=== PATIENT | female | born 1935 | race Caucasian/White ===

== ENCOUNTER 2016-12-24 10:42 | Emergency (ER) | payer MEDICARE, BC ==
[2016-12-24 11:06] VITALS: TEMP 98.3
[2016-12-24 12:31] VITALS: BP 163/76
--- NOTE | 2016-12-24 12:36 | ED ---
Recheck HPI - General Chief Complaint: Recheck/Abnormal Lab/Rx Stated Complaint: HYPERTENSION Time Seen by Provider: 12/24/16 11:40 Source: patient, RN notes reviewed Mode of arrival: wheelchair Limitations: no limitations - History of Present Illness Initial Comments: This 81-year-old female history of hypertension was sent over by her neurologist for evaluation of hypertension. She was here for evaluation of her low back which she states is weak she's noted have a blood pressure of over 240/ 190. She denied any headache dizziness blurry vision nausea vomiting or other symptoms. She did take her medication today she does admit she does get white coat syndrome. She denies any complaints at all. MD Complaint: other - Related Data Home Medications Medication Instructions Recorded Confirmed Amitriptyline HCl [Elavil] 10 mg PO BID 12/24/16 12/24/16 Atorvastatin Calcium [Lipitor] 20 mg PO DAILY 12/24/16 12/24/16 Hydrocodone/Acetaminophen [Vicodin 1 tab PO TID PRN 12/24/16 12/24/16 Es 7.5-300 mg Tablet] Levothyroxine Sodium [Synthroid] 175 mcg PO DAILY 12/24/16 12/24/16 Lisinopril 20 mg PO BID 12/24/16 12/24/16 Lyrica (Unknown Dose) 1 tab PO BID 12/24/16 12/24/16 Metoprolol Tartrate [Lopressor] 25 mg PO BID 12/24/16 12/24/16 rOPINIRole HCL [Requip] 2 mg PO HS 12/24/16 12/24/16 Allergies Allergy/AdvReac Type Severity Reaction Status Date / Time Penicillins Allergy Swelling/it Verified 12/24/16 11:29 lolis Review of Systems ROS Statement: Those systems with pertinent positive or pertinent negative responses have been documented in the HPI. ROS Other: All systems not noted in ROS Statement are negative. Past Medical History Past Medical History: Cancer, Hypertension, Pneumonia Additional Past Medical History / Comment(s): chronic back pain, ovarian cancer History of Any Multi-Drug Resistant Organisms: None Reported Past Surgical History: Back Surgery, Hernia Repair, Hysterectomy Additional Past Surgical History / Comment(s): jero knee,brain tumor removed, exp lap Past Psychological History: No Psychological Hx Reported Smoking Status: Never smoker Past Alcohol Use History: None Reported Past Drug Use History: None Reported General Exam - General Exam Comments Initial Comments: This a well-developed well-nourished awake alert oriented 3 female Limitations: no limitations General appearance: alert, in no apparent distress Head exam: Present: atraumatic, normocephalic, normal inspection Eye exam: Present: normal appearance, PERRL, EOMI. Absent: scleral icterus, conjunctival injection, periorbital swelling ENT exam: Present: mucous membranes dry Neck exam: Present: normal inspection. Absent: tenderness, meningismus, lymphadenopathy Respiratory exam: Present: normal lung sounds bilaterally. Absent: respiratory distress, wheezes, rales, rhonchi, stridor Cardiovascular Exam: Present: regular rate, normal rhythm, normal heart sounds. Absent: systolic murmur, diastolic murmur, rubs, gallop, clicks GI/Abdominal exam: Present: soft, normal bowel sounds. Absent: distended, tenderness, guarding, rebound, rigid Extremities exam: Present: normal inspection, full ROM, normal capillary refill. Absent: tenderness, pedal edema, joint swelling, calf tenderness Back exam: Present: normal inspection Neurological exam: Present: alert, oriented X3, CN II-XII intact Psychiatric exam: Present: normal affect, normal mood Skin exam: Present: warm, dry, intact, normal color. Absent: rash Course Vital Signs 12/24/16 11:03 Temperature 98.3 F Pulse Rate 63 Respiratory 20 Rate Blood Pressure 193/86 O2 Sat by Pulse 98 Oximetry - Reevaluation(s) Reevaluation #1: 12/24/16 12:32 Reevaluation patient reveals her blood pressure 163/74. We did a long discussion regarding the findings the clinical exam and evaluation at this point no further workup is indicated patient will increase her oral fluids continue with her medications follow-up with her doctor. She does have a blood pressure cuff at home she will monitor her pressure once a day and follow up appropriately. She is in agreement with no further workup as is her . Disposition Clinical Impression: Hypertension, Dehydration Disposition: HOME SELF-CARE Condition: Good Instructions: Hypertension (ED), Dehydration (ED) Referrals: Shira Ortega MD [Primary Care Provider] - 1-2 days
[2016-12-24 13:12] VITALS: PULSE 71; RESP 18
== END 2016-12-24 13:11 | disposition home or self-care (01) ==
LOC: EC 10:42
DX: I10 Essential (primary) hypertension (principal); E86.0 Dehydration; Z79.899 Other long term (current) drug therapy; Z88.0 Allergy status to penicillin; Z85.43 Personal history of malignant neoplasm of ovary; Z90.722 Acquired absence of ovaries, bilateral
CPT/HCPCS: 99283

== ENCOUNTER → 2017-03-11 | Outpatient (CLI) | payer MEDICARE, BC ==
[2017-03-11 10:59] LABS: Anion Gap 7 mmol/L; Blood Urea Nitrogen 15 mg/dL (7-17); Calcium 9.3 mg/dL (8.4-10.2); Carbon Dioxide 33 mmol/L (22-30); Chloride 100 mmol/L (98-107); Glucose 103 mg/dL (74-99); Magnesium 2.1 mg/dL (1.6-2.3); Non-African American GFR(MDRD) >60 (>60 ml/min/1.73 sqM); Potassium 4.7 mmol/L (3.5-5.1); Sodium 140 mmol/L (137-145)
== END | disposition home or self-care (01) ==
LOC: LABWHC1 09:58
PROVIDERS: ATTEND Internal Medicine Clinical Cardiac Electrophysiology
DX: I11.0 Hypertensive heart disease with heart failure (principal); I50.9 Heart failure, unspecified
CPT/HCPCS: 36415; 80048; 83735; 84443

== ENCOUNTER 2017-08-17 12:42 | Inpatient (IN) | payer BC, MEDICARE ==
--- NOTE | 2017-08-17 14:10 | ED ---
General Adult HPI - General Chief complaint: Shortness of Breath Stated complaint: SOB/Not Feeling Well Time Seen by Provider: 08/17/17 13:53 Source: patient, family, RN notes reviewed Mode of arrival: wheelchair Limitations: no limitations - History of Present Illness Initial comments: Patient is a pleasant 82-year-old female presenting to the emergency department for not feeling well. Patient had a small stroke back before [place]. Patient has not been feeling well since that time. Symptoms have worsened over the past couple weeks. Patient does feel somewhat short of breath. Patient has had generalized weakness and fatigue. Patient has had some postnasal drip and cough. No chest pain. No isolated area of weakness. Patient had difficulty getting out of bed today and needed assistance. - Related Data Home Medications Medication Instructions Recorded Confirmed Amitriptyline HCl [Elavil] 10 mg PO BID 12/24/16 08/17/17 Hydrocodone/Acetaminophen [Vicodin 1 tab PO TID PRN 12/24/16 08/17/17 Es 7.5-300 mg Tablet] Levothyroxine Sodium [Synthroid] 175 mcg PO DAILY 12/24/16 08/17/17 Lisinopril 20 mg PO BID 12/24/16 08/17/17 Artificial Tears-Hypromellose 1 drops BOTH EYES TID PRN 08/17/17 08/17/17 [Artificial Tear Drops] Atorvastatin [Lipitor] 40 mg PO HS 08/17/17 08/17/17 Clobetasol Propionate [Temovate 1 applic TOPICAL DAILY PRN 08/17/17 08/17/17 0.05% Cream] Clotrimazole/Betameth Cream 1 applic TOPICAL BID PRN 08/17/17 08/17/17 [Lotrisone] Desonide [Desonate] 1 applic TOPICAL DAILY PRN 08/17/17 08/17/17 Fluticasone Nasal [place] [Flonase 2 spr EA NOSTRIL BID 08/17/17 08/17/17 Nasal [place]] Metoprolol Succinate [Toprol XL] 25 mg PO HS 08/17/17 08/17/17 Multivitamins, Thera [Multivitamin 1 tab PO DAILY 08/17/17 08/17/17 (formulary)] Pregabalin [Lyrica] 150 mg PO BID 08/17/17 08/17/17 Triamterene-Hctz 37.5-25Mg 1 cap PO DAILY 08/17/17 08/17/17 [Dyazide 37.5-25 Capsule] rOPINIRole HCL [Requip] 2 mg PO HS 08/17/17 08/17/17 Allergies Allergy/AdvReac Type Severity Reaction Status Date / Time Penicillins Allergy Swelling/it Verified 08/17/17 13:52 lolis Review of Systems ROS Statement: Those systems with pertinent positive or pertinent negative responses have been documented in the HPI. ROS Other: All systems not noted in ROS Statement are negative. Constitutional: Denies: fever Eyes: Denies: eye pain ENT: Reports: congestion Respiratory: Reports: cough, dyspnea Cardiovascular: Denies: chest pain Endocrine: Reports: fatigue Gastrointestinal: Denies: abdominal pain Genitourinary: Denies: dysuria Musculoskeletal: Denies: back pain Skin: Denies: rash Neurological: Denies: weakness Past Medical History Past Medical History: Cancer, Hypertension, Pneumonia Additional Past Medical History / Comment(s): chronic back pain, ovarian cancer History of Any Multi-Drug Resistant Organisms: None Reported Past Surgical History: Back Surgery, Hernia Repair, Hysterectomy Additional Past Surgical History / Comment(s): jero knee,brain tumor removed, exp lap Past Psychological History: No Psychological Hx Reported Smoking Status: Never smoker Past Alcohol Use History: None Reported Past Drug Use History: None Reported General Exam Limitations: no limitations General appearance: alert, in no apparent distress Head exam: Present: atraumatic, normocephalic Eye exam: Present: normal appearance, PERRL ENT exam: Present: normal oropharynx Neck exam: Present: normal inspection Respiratory exam: Present: normal lung sounds bilaterally Cardiovascular Exam: Present: regular rate, normal rhythm GI/Abdominal exam: Present: soft. Absent: tenderness Extremities exam: Present: pedal edema. Absent: calf tenderness Neurological exam: Present: alert, oriented X3, CN II-XII intact. Absent: motor sensory deficit Expanded Speech: Present: fluid speech Cranial nerves: EOM's Intact: Normal Motor strength exam: RUE: 5, LUE: 5, RLE: 5, LLE: 5 Psychiatric exam: Present: normal affect, normal mood Skin exam: Present: normal color Course Vital Signs 08/17/17 08/17/17 08/17/17 13:21 13:44 14:44 Temperature 99.6 F Pulse Rate 84 66 64 Respiratory 18 Rate Blood Pressure 135/60 112/65 120/72 O2 Sat by Pulse 93 L 95 95 Oximetry - Reevaluation(s) Reevaluation #1: 08/17/17 16:01 Patient does not meet sepsis criteria EKG Findings - EKG Comments: EKG Findings:: Sinus rhythm at 79. First 3 AV block ME of 236. QRS 164. QT 442. QTC 506. Left axis. Right bundle branch block. Left anterior fascicular block. No acute ST change. Medical Decision Making - Medical Decision Making Patient reevaluated and resting comfortably in bed. Patient does not feel comfortable with discharge home. Patient and family updated on results and plan. Case was discussed in detail with Dr. Ferrari, who will admit for Dr. Kwok. - Lab Data Result diagrams: 08/17/17 13:50 08/17/17 13:50 Lab Results 08/17/17 08/17/17 08/17/17 Range/Units 13:50 13:50 13:50 WBC 6.8 (3.8-10.6) k/uL RBC 4.28 (3.80-5.40) m/uL Hgb 13.6 (11.4-16.0) gm/dL Hct 41.9 (34.0-46.0) % MCV 98.0 (80.0-100.0) fL MCH 31.7 (25.0-35.0) pg MCHC 32.3 (31.0-37.0) g/dL RDW 14.0 (11.5-15.5) % Plt Count 164 (150-450) k/uL Neutrophils % 76 % Lymphocytes % 14 % Monocytes % 6 % Eosinophils % 3 % Basophils % 0 % Neutrophils # 5.2 (1.3-7.7) k/uL Lymphocytes # 1.0 (1.0-4.8) k/uL Monocytes # 0.4 (0-1.0) k/uL Eosinophils # 0.2 (0-0.7) k/uL Basophils # 0.0 (0-0.2) k/uL PT (9.0-12.0) sec INR (<1.2) APTT (22.0-30.0) sec D-Dimer (<0.60) mg/L FEU Sodium 140 (137-145) mmol/L Potassium 4.5 (3.5-5.1) mmol/L Chloride 101 (98-107) mmol/L Carbon Dioxide 27 (22-30) mmol/L Anion Gap 12 mmol/L BUN 22 H (7-17) mg/dL Creatinine 1.00 (0.52-1.04) mg/dL Est GFR (MDRD) Af Amer >60 (>60 ml/min/1.73 sqM) Est GFR (MDRD) Non-Af 53 (>60 ml/min/1.73 sqM) Glucose 92 (74-99) mg/dL Calcium 10.6 H (8.4-10.2) mg/dL Total Bilirubin 0.5 (0.2-1.3) mg/dL AST 30 (14-36) U/L ALT 32 (9-52) U/L Alkaline Phosphatase 91 (38-126) U/L Total Creatine Kinase 213 H (30-135) U/L CK-MB (CK-2) 2.9 H* (0.0-2.4) ng/mL CK-MB (CK-2) Rel Index 1.4 Troponin I <0.012 (0.000-0.034) ng/mL NT-Pro-B Natriuret Pep pg/mL Total Protein 6.9 (6.3-8.2) g/dL Albumin 4.4 (3.5-5.0) g/dL Influenza Type A RNA (Not Detectd) Influenza Type B (PCR) (Not Detectd) 08/17/17 08/17/17 08/17/17 Range/Units 13:50 13:50 13:50 WBC (3.8-10.6) k/uL RBC (3.80-5.40) m/uL Hgb (11.4-16.0) gm/dL Hct (34.0-46.0) % MCV (80.0-100.0) fL MCH (25.0-35.0) pg MCHC (31.0-37.0) g/dL RDW (11.5-15.5) % Plt Count (150-450) k/uL Neutrophils % % Lymphocytes % % Monocytes % % Eosinophils % % Basophils % % Neutrophils # (1.3-7.7) k/uL Lymphocytes # (1.0-4.8) k/uL Monocytes # (0-1.0) k/uL Eosinophils # (0-0.7) k/uL Basophils # (0-0.2) k/uL PT 10.0 (9.0-12.0) sec INR 1.0 (<1.2) APTT 24.1 (22.0-30.0) sec D-Dimer 0.51 (<0.60) mg/L FEU Sodium (137-145) mmol/L Potassium (3.5-5.1) mmol/L Chloride (98-107) mmol/L Carbon Dioxide (22-30) mmol/L Anion Gap mmol/L BUN (7-17) mg/dL Creatinine (0.52-1.04) mg/dL Est GFR (MDRD) Af Amer (>60 ml/min/1.73 sqM) Est GFR (MDRD) Non-Af (>60 ml/min/1.73 sqM) Glucose (74-99) mg/dL Calcium (8.4-10.2) mg/dL Total Bilirubin (0.2-1.3) mg/dL AST (14-36) U/L ALT (9-52) U/L Alkaline Phosphatase (38-126) U/L Total Creatine Kinase (30-135) U/L CK-MB (CK-2) (0.0-2.4) ng/mL CK-MB (CK-2) Rel Index Troponin I (0.000-0.034) ng/mL NT-Pro-B Natriuret Pep 277 pg/mL Total Protein (6.3-8.2) g/dL Albumin (3.5-5.0) g/dL Influenza Type A RNA Not Detected (Not Detectd) Influenza Type B (PCR) Not Detected (Not Detectd) - Radiology Data Radiology results: image reviewed (Chest x-ray shows right middle lobe infiltrate) Disposition Clinical Impression: Pneumonia Disposition: ADMITTED IP TO THIS HOSP Referrals: Shira Ortega MD [Primary Care Provider] - 1-2 days Decision Time: 16:02
[2017-08-17 14:23] LABS: Basophils % (A) 0 %; Eosinophils # (A) 0.2 k/uL (0-0.7); Eosinophils % (A) 3 %; HCT 41.9 % (34.0-46.0); HGB 13.6 gm/dL (11.4-16.0); Lymphocytes % (A) 14 %; MCH 31.7 pg (25.0-35.0); MCHC 32.3 g/dL (31.0-37.0); Mean Platelet Volume 7.8; Monocytes # (A) 0.4 k/uL (0-1.0); Monocytes % (A) 6 %; Neutrophils # (A) 5.2 k/uL (1.3-7.7); Neutrophils % (A) 76 %; Platelet Count 164 k/uL (150-450); RBC 4.28 m/uL (3.80-5.40); WBC 6.8 k/uL (3.8-10.6)
[2017-08-17 14:32] LABS: ALT 32 U/L (9-52); AST 30 U/L (14-36); Albumin 4.4 g/dL (3.5-5.0); Alkaline Phosphatase 91 U/L (38-126); Anion Gap 12 mmol/L; Blood Urea Nitrogen 22 mg/dL (7-17); Calcium 10.6 mg/dL (8.4-10.2); Carbon Dioxide 27 mmol/L (22-30); Chloride 101 mmol/L (98-107); Glucose 92 mg/dL (74-99); Potassium 4.5 mmol/L (3.5-5.1); Sodium 140 mmol/L (137-145); Total Bilirubin 0.5 mg/dL (0.2-1.3); Total Protein 6.9 g/dL (6.3-8.2)
[2017-08-17 14:33] LABS: Partial Thromboplastin Time 24.1 sec (22.0-30.0)
--- NOTE | 2017-08-17 14:37 | XR ---
EXAMINATION TYPE: XR chest 2V DATE OF EXAM: 08/17/2017 COMPARISON: 02/07/2011 HISTORY: Shortness of breath TECHNIQUE: Frontal and lateral views of the chest are obtained. FINDINGS: Scattered senescent parenchymal changes noted. Increased density in the region of the right medial lung base may reflect developing infiltrate. Umesh elate clinically and consider progress studies. Heart size is stable. Mediastinal structures are stable and grossly unremarkable. No evidence for hilar prominence. Degenerative changes dorsal spine. IMPRESSION: 1. Increased density in the region of the right medial lung base may reflect developing infiltrate. C orrelate clinically and consider progress studies.
[2017-08-17 14:38] LABS: D-Dimer 0.51 mg/L FEU (<0.60)
[2017-08-17 14:52] LABS: Creatine Kinase 213 U/L (30-135)
[2017-08-17 15:04] LABS: Troponin I <0.012 ng/mL (0.000-0.034)
[2017-08-17 15:05] LABS: Creatine Kinase MB 2.9 ng/mL (0.0-2.4)
[2017-08-17] MEDS ORDERED: PNEUMONIA PROTOCOL UTILIZED 1 EACH MISC PO PRN (16:03)
[2017-08-17] MEDS ORDERED: LEVOFLOXACIN 750MG-D5W PMX 750 MG in DEXTROSE/WATER 1 150ML.BAG IVPB STA (16:03)
[2017-08-17] MEDS ORDERED: IPRATROPIUM-ALBUTEROL 3 ML NEB INHALATION PRN (16:03)
[2017-08-17] MEDS: SODIUM CHLORIDE 0.9% 1,000 ML IV SCH (16:18)
[2017-08-17 17:49] VITALS: BMI 49.6
[2017-08-17] MEDS ORDERED: ARTIFICIAL TEARS-HYPROMELLOSE DROPS 15 ML BTL BOTH EYES PRN (21:09)
[2017-08-17] MEDS ORDERED: CLOTRIMAZOLE/BETAMETH 1-0.05% CREAM 45 GM TUBE TOPICAL PRN (21:09)
[2017-08-17] MEDS ORDERED: CLOBETASOL PROP 0.05% CR 15GM TOPICAL PRN (21:09)
[2017-08-17] MEDS ORDERED: HYDROcodone/APAP 5-325MG 1 EACH TAB PO PRN (21:10)
[2017-08-17] MEDS ORDERED: TEMAZEPAM 15 MG CAP PO PRN (21:10)
[2017-08-17] MEDS ORDERED: AZITHROMYCIN 500 MG in SODIUM CHLORIDE 0.9% 250 ML IVPB SCH (21:30)
[2017-08-17] MEDS: cefTRIAXone IN SWFI 1,000 MG/10 ML SYRINGE IVP SCH (22:04)
[2017-08-18] MEDS: HYDROcodone/APAP 7.5-325MG 1 EACH TAB PO PRN ×3 (06:14→22:30)
[2017-08-18] MEDS: LEVOTHYROXINE 75 MCG TAB PO SCH (06:14)
[2017-08-18] MEDS: LEVOTHYROXINE 100 MCG TAB PO SCH (06:14)
--- NOTE | 2017-08-18 06:46 | HP ---
HISTORY AND PHYSICAL DATE OF SERVICE: 08/17/2017 CHIEF COMPLAINT: Shortness of breath and cough. HISTORY OF PRESENT ILLNESS: This 82-year-old woman with a past medical history of multiple medical problems including history of hypertension, history of pneumonia, chronic back pain, DJD was not feeling well over the past several months according to the her. Patient had pneumonia last year, which the patient could not shake off. Subsequently, the patient also had a TIA and stroke-like episode and was receiving physical therapy and occupational therapy at home. The patient became progressively short of breath with cough for the past several weeks even before [place] and because of increased in generalized tiredness and weakness and other multiple [QAMARKER, the patient came to [facility] and was admitted for further evaluation and treatment. A chest x-ray was done showing increased density in the region of right middle lobe with possible pneumonia. There is no history of any fever or rigors. There is no history of headache, loss of consciousness, or seizures. Dr. Benitez is following the patient closely. PAST MEDICAL HISTORY: History of hypertension, history of pneumonia, history of chronic back pain, DJD. MEDICATIONS: Medications prior to admission include home medications are: 1. Requip 2 mg p.o. q.h.s. 2. Dyazide 37.5 mg 1 capsule daily .. 3. Lyrica 150 mg p.o. b.i.d. 4. Multivitamins 1 p.o. daily. 5. Toprol XL 25 mg q.h.s. 6. Lisinopril 20 mg p.o. b.i.d. 7. Synthroid 175 mcg p.o. daily. 8. Vicodin 1 tablet p.o. t.i.d. p.r.n. 9. Flonase 2 sprays b.i.d. 10.Desonate one application daily p.r.n. 11.Lotrisone one application topically b.i.d. p.r.n. 12.Temovate one application topically daily p.r.n. 13.Lipitor 40 mg q.h.s. 14.Artificial tear drops 1 drop both eyes t.i.d. p.r.n. 15.Elavil 10 mg p.o. b.i.d. ALLERGIES: Allergies are PENICILLIN. FAMILY HISTORY: No history of heart disease or strokes in the family. SOCIAL HISTORY: No history of smoking. No history of alcohol intake. REVIEW OF SYSTEMS: ENT: No diminished hearing or diminished vision. CARDIOVASCULAR SYSTEM: No angina. RESPIRATORY SYSTEM: As mentioned earlier. GI: No nausea. : No dysuria. NERVOUS SYSTEM: No numbness or weakness. ALLERGY/IMMUNOLOGY: No history of asthma. MUSCULOSKELETAL: As mentioned earlier. HEMATOLOGY/ONCOLOGY: No history of anemia. ENDOCRINE: No history of diabetes, hypothyroidism. CONSTITUTIONAL: As mentioned earlier. DERMATOLOGY: Negative. RHEUMATOLOGY: Negative. PSYCHIATRY: As mentioned earlier. PHYSICAL EXAMINATION: The patient is alert and oriented x3. Pulse 66, blood pressure 129/61, respirations 16, temperature 98.4, pulse ox 96% on 3 L. HEENT: Conjunctivae normal. Oral mucosa is moist. Neck is no jugular venous distention. No carotid bruit. No lymph node enlargement. CARDIOVASCULAR: S1 and S2 muffled. No S3, no S4. RESPIRATORY: Breath sounds diminished in the bases. A few rhonchi, no crackles. ABDOMEN: Soft, nontender. No mass palpable. LEGS: No edema, no swelling. NERVOUS SYSTEM: Higher functions as mentioned earlier. Moves all four limbs. No focal deficits LYMPHATICS: No lymphadenopathy of the neck, axillae or groin. SKIN: No ulcer, rash or bleeding. LABS: CBC within normal limits. Otherwise creatine kinase 213. ASSESSMENT: 1. Acute right middle lobe pneumonia possibly gram-negative, community acquired. 2. Hypertension. 3. History of pneumonia. 4. Chronic back pain. 5. History of ovarian cancer. 6. History of back surgery, degenerative joint disease. 7. History of hernia surgery. RECOMMENDATIONS AND DISCUSSION: In this 82-year-old woman who presented with multiple complex medical issues, will monitor the patient closely. Continue the current medications and symptomatic treatment. At this time I recommend continue with broad-spectrum IV antibiotics. I would use a combination of Rocephin and Zithromax. Otherwise cultures. Resume the home medications. Guarded prognosis because of multiple complex medical issues. Further recommendations to follow. Dr. Benitez will be consulted. MMODL / IJN: [id number] /
[2017-08-18] MEDS: IPRATROPIUM-ALBUTEROL 3 ML NEB INHALATION SCH ×3 (07:43→19:50)
[2017-08-18] MEDS ORDERED: IPRATROPIUM 0.5 MG/2.5 ML NEBU INHALATION SCH (08:00)
[2017-08-18 08:32] LABS: Calcium 10.3 mg/dL (8.4-10.2)
[2017-08-18] MEDS: PREGABALIN 75 MG CAP PO SCH ×2 (08:34→20:37)
[2017-08-18] MEDS: PANTOPRAZOLE 40 MG TABLET PO SCH (08:34)
[2017-08-18] MEDS: AMITRIPTYLINE HCL 10 MG TAB PO SCH ×2 (08:35→21:31)
[2017-08-18] MEDS: TRIAMTERENE-HCTZ 37.5-25MG 1 EACH CAP PO SCH (08:35)
[2017-08-18] MEDS: LISINOPRIL 20 MG TAB PO SCH ×2 (08:35→22:30)
[2017-08-18 08:36] LABS: Basophils % (A) 0 %; Eosinophils # (A) 0.3 k/uL (0-0.7); Eosinophils % (A) 4 %; HCT 41.9 % (34.0-46.0); HGB 13.6 gm/dL (11.4-16.0); Lymphocytes # (A) 1.2 k/uL (1.0-4.8); Lymphocytes % (A) 20 %; MCH 32.2 pg (25.0-35.0); MCHC 32.4 g/dL (31.0-37.0); MCV 99.5 fL (80.0-100.0); Monocytes # (A) 0.4 k/uL (0-1.0); Monocytes % (A) 6 %; Neutrophils # (A) 4.1 k/uL (1.3-7.7); Neutrophils % (A) 69 %; Platelet Count 161 k/uL (150-450); Potassium 5.3 mmol/L (3.5-5.1); RBC 4.21 m/uL (3.80-5.40); RDW 13.8 % (11.5-15.5)
[2017-08-18] MEDS: FLUTICASONE 50MCG/SPRAY NASAL 16GM EA NOSTRIL SCH ×2 (08:37→20:35)
[2017-08-18] MEDS: HEPARIN SODIUM,PORCINE 5,000 UNIT/ML 1 ML VIAL SQ SCH ×2 (08:38→20:35)
--- NOTE | 2017-08-18 08:45 | XR ---
EXAMINATION TYPE: XR chest 2V DATE OF EXAM: 08/18/2017 COMPARISON: 08/17/2017 TECHNIQUE: PA and lateral views submitted. HISTORY: Shortness of breath FINDINGS: There is a chronic appearing wedge deformity in the lower thoracic spine with multilevel degenerative disc disease and a stimulator device noted. Heart size stable. No obvious consolidation. Linear changes seen in the perihilar regions are likely related to scar or atelectasis. Mild central interstitial prominence. IMPRESSION: 1. Stable bilateral subsegmental areas of consolidation for which atelectasis favored over pneumonia. 2. Central interstitial pattern may be on the basis of chronic interstitial lung disease rather than venous congestion or pneumonitis correlate clinically
[2017-08-18] MEDS: MULTIVITAMINS, THERA 1 EACH TAB PO SCH (12:02)
--- NOTE | 2017-08-18 13:58 | P.CNPUL ---
History of Present Illness Consult date: 08/18/17 Reason for consult: dyspnea, cough, hypoxemia, pneumonia Chief complaint: Shortness of breath cough and progressively not feeling well History of present illness: Ms. Bailey 82-year-old female with history of severe degree of obstructive sleep apnea and severe degree of sleep disorder breathing patient has not been feeling well for the last 2-3 weeks with slow progressive worsening in terms is started about a week ago when she started having increased cough congestion her symptoms of progressive and eventually came into emergency department where she was seen eval reexamined found to have a right middle lobe pneumonia she is being treated with antibiotics I reviewed her x-ray at the time admission and today some improvement in infiltrates have been noted. And is currently recovering from a small TIA undergoing rehabilitation she also has a sleep disorder breathing and sleep apnea for which her BiPAP setting has been adjusted and machine is being arranged as well patient setting. Review of Systems All systems: negative Past Medical History Past Medical History: Cancer, Hypertension, Pneumonia Additional Past Medical History / Comment(s): chronic back pain, ovarian cancer back surgery, both kneess eplacement, abdominal hernia repair History of Any Multi-Drug Resistant Organisms: None Reported Past Surgical History: Back Surgery, Hernia Repair, Hysterectomy Additional Past Surgical History / Comment(s): jero knee,brain tumor removed, exp lap Past Anesthesia/Blood Transfusion Reactions: No Reported Reaction Past Psychological History: No Psychological Hx Reported Smoking Status: Never smoker Past Alcohol Use History: None Reported Past Drug Use History: None Reported Medications and Allergies Home Medications Medication Instructions Recorded Confirmed Type Amitriptyline HCl [Elavil] 10 mg PO BID 12/24/16 08/17/17 History Hydrocodone/Acetaminophen [Vicodin 1 tab PO TID PRN 12/24/16 08/17/17 History Es 7.5-300 mg Tablet] Levothyroxine Sodium [Synthroid] 175 mcg PO DAILY 12/24/16 08/17/17 History Lisinopril 20 mg PO BID 12/24/16 08/17/17 History Artificial Tears-Hypromellose 1 drops BOTH EYES TID PRN 08/17/17 08/17/17 History [Artificial Tear Drops] Atorvastatin [Lipitor] 40 mg PO HS 08/17/17 08/17/17 History Clobetasol Propionate [Temovate 1 applic TOPICAL DAILY PRN 08/17/17 08/17/17 History 0.05% Cream] Clotrimazole/Betameth Cream 1 applic TOPICAL BID PRN 08/17/17 08/17/17 History [Lotrisone] Desonide [Desonate] 1 applic TOPICAL DAILY PRN 08/17/17 08/17/17 History Fluticasone Nasal [place] [Flonase 2 spr EA NOSTRIL BID 08/17/17 08/17/17 History Nasal [place]] Metoprolol Succinate [Toprol XL] 25 mg PO HS 08/17/17 08/17/17 History Multivitamins, Thera [Multivitamin 1 tab PO DAILY 08/17/17 08/17/17 History (formulary)] Pregabalin [Lyrica] 150 mg PO BID 08/17/17 08/17/17 History Triamterene-Hctz 37.5-25Mg 1 cap PO DAILY 08/17/17 08/17/17 History [Dyazide 37.5-25 Capsule] rOPINIRole HCL [Requip] 2 mg PO HS 08/17/17 08/17/17 History Allergies Allergy/AdvReac Type Severity Reaction Status Date / Time Penicillins Allergy Swelling/it Verified 08/17/17 13:52 lolis Physical Exam Vitals: Vital Signs Temp Pulse Pulse Resp BP BP Pulse Ox 08/18/17 13:45 70 08/18/17 10:05 69 19 08/18/17 07:55 68 08/18/17 07:47 66 93 L 08/18/17 07:00 98.1 F 68 20 141/68 95 08/17/17 21:39 98.2 F 67 16 129/70 95 08/17/17 18:01 98.4 F 66 16 129/61 96 08/17/17 16:54 99.0 F 69 16 134/67 96 08/17/17 16:03 95 08/17/17 15:44 63 18 129/60 94 L 08/17/17 14:44 64 120/72 95 Intake and Output 08/17/17 08/18/17 08/18/17 22:59 06:59 14:59 Intake Total 750 240 Balance 750 240 Intake: Intake, IV Titration 750 Amount Azithromycin 500 mg In 250 Sodium Chloride 0.9% 250 ml @ 125 mls/hr IVPB [facility] Rx#:[id number] Sodium Chloride 0.9% 1, 500 000 ml @ 50 mls/hr IV . Q20H [facility] Rx#:[id number] Oral 240 Other: Voiding Method Toilet Toilet Toilet # Voids 1 2 Weight 127 kg Limitations: no limitations General appearance: alert, in no apparent distress Head exam: Present: atraumatic, normocephalic Eye exam: Present: normal appearance, PERRL ENT exam: Present: normal oropharynx Neck exam: Present: normal inspection Respiratory exam: Present: normal lung sounds bilaterally Cardiovascular Exam: Present: regular rate, normal rhythm GI/Abdominal exam: Present: soft. Absent: tenderness Extremities exam: Present: pedal edema. Absent: calf tenderness Neurological exam: Present: alert, oriented X3, CN II-XII intact. Absent: motor sensory deficit Expanded Speech: Present: fluid speech Cranial nerves: EOM's Intact: Normal Motor strength exam: RUE: 5, LUE: 5, RLE: 5, LLE: 5 Psychiatric exam: Present: normal affect, normal mood Skin exam: Present: normal color Results - Laboratory Findings CBC and BMP: 08/18/17 07:22 08/18/17 07:22 PT/INR, D-dimer PT 10.0 sec (9.0-12.0) 08/17/17 13:50 INR 1.0 (<1.2) 08/17/17 13:50 D-Dimer 0.51 mg/L FEU (<0.60) 08/17/17 13:50 Abnormal lab findings: Abnormal Labs 08/17/17 08/17/17 08/18/17 13:50 13:50 07:22 Potassium 5.3 H BUN 22 H 20 H Creatinine 1.16 H Calcium 10.6 H 10.3 H Total Creatine Kinase 213 H CK-MB (CK-2) 2.9 H* - Diagnostic Findings Chest x-ray: report reviewed, image reviewed (Findings as noted above) Assessment and Plan Assessment: Right middle lobe pneumonia given history of TIA and stroke mixed bacterial and/ or or gram-negative pneumonia cannot be excluded Severe degree of obstructive sleep apnea and morbid obesity Hypertension hypertensive cardiovascular disease Ovarian cancer Generative joint disease osteoarthritis Plan: Would continue antibiotics as well as breathing treatments continue gentle rehydration maintain patient on DVT and peptic ulcer disease prophylaxis will follow clinical course closely, patient will be resumed on BiPAP as noted above once arranged Time with Patient: Greater than 30
[2017-08-18] MEDS: SODIUM CHLORIDE 0.9% 1,000 ML IV SCH (15:19)
[2017-08-18] MEDS ORDERED: LEVOFLOXACIN 750 MG TAB PO SCH (16:00)
--- NOTE | 2017-08-18 19:31 | PN ---
PROGRESS NOTE DATE OF SERVICE: 08/18/2017 This 82-year-old woman who was admitted with bibasilar pneumonia is on broad-spectrum IV antibiotics. Patient is being closely monitored at this time. Right middle lobe pneumonia is also suspected as well. Dr. Benitez is following the patient. Patient is on broad-spectrum IV antibiotics. No chest pain. No palpitations. No fever. PHYSICAL EXAMINATION: Pulse is 87, blood pressure 178/80, respiration 18, temperature 98.1, pulse ox 96% on 2 L. HEENT: Conjunctivae normal. NECK: No jugular venous distention. CARDIOVASCULAR SYSTEM: S1, S2 muffled. RESPIRATORY SYSTEM: Breath sounds diminished at the bases. A few scattered rhonchi. ABDOMEN: Soft, nontender. LEGS: No edema. No swelling. NERVOUS SYSTEM: No focal deficit. LABS: Calcium is 10.3. Creatinine is 1.16. ASSESSMENT: 1. Acute right middle lobe pneumonia, possibly Gram-negative or community-acquired. 2. Hypertension. 3. History of pneumonia. 4. History of chronic back pain. 5. History of ovarian cancer. 6. History of back surgery and degenerative joint disease. 7. History of hernia surgery. RECOMMENDATIONS AND DISCUSSION: I recommend to continue current medication, continue symptomatic treatment. Continue with antibiotics. Increase ambulation. Closely follow with Pulmonary. Guarded prognosis. Further recommendations to follow. MMODL / IJN: [id number] /
[2017-08-18] MEDS: ATORVASTATIN 40 MG TAB PO SCH (20:34)
[2017-08-18] MEDS: cefTRIAXone IN SWFI 1,000 MG/10 ML SYRINGE IVP SCH (20:35)
[2017-08-18] MEDS: METOPROLOL SUCCINATE (ER) 25 MG TAB.ER.24H PO SCH (20:37)
[2017-08-18] MEDS: AZITHROMYCIN 500 MG TAB PO SCH (21:31)
[2017-08-19] MEDS: LEVOTHYROXINE 100 MCG TAB PO SCH (06:09)
[2017-08-19] MEDS: LEVOTHYROXINE 75 MCG TAB PO SCH (06:09)
[2017-08-19] MEDS: HYDROcodone/APAP 7.5-325MG 1 EACH TAB PO PRN (06:09)
[2017-08-19] MEDS: IPRATROPIUM-ALBUTEROL 3 ML NEB INHALATION SCH ×3 (08:19→19:12)
[2017-08-19 08:33] LABS: Basophils % (A) 1 %; Eosinophils # (A) 0.3 k/uL (0-0.7); Eosinophils % (A) 6 %; HCT 42.6 % (34.0-46.0); HGB 13.5 gm/dL (11.4-16.0); Lymphocytes # (A) 1.5 k/uL (1.0-4.8); Lymphocytes % (A) 25 %; MCH 32.1 pg (25.0-35.0); MCHC 31.7 g/dL (31.0-37.0); MCV 101.3 fL (80.0-100.0); Macrocytosis Slight; Mean Platelet Volume 7.5; Monocytes # (A) 0.4 k/uL (0-1.0); Monocytes % (A) 6 %; Neutrophils # (A) 3.7 k/uL (1.3-7.7); Neutrophils % (A) 61 %; Platelet Count 172 k/uL (150-450); RBC 4.21 m/uL (3.80-5.40); RDW 14.1 % (11.5-15.5)
[2017-08-19] MEDS: PANTOPRAZOLE 40 MG TABLET PO SCH (08:37)
[2017-08-19] MEDS: AMITRIPTYLINE HCL 10 MG TAB PO SCH ×2 (08:37→20:14)
[2017-08-19] MEDS: TRIAMTERENE-HCTZ 37.5-25MG 1 EACH CAP PO SCH (08:37)
[2017-08-19] MEDS: LISINOPRIL 20 MG TAB PO SCH ×2 (08:38→20:35)
[2017-08-19] MEDS: PREGABALIN 75 MG CAP PO SCH ×2 (08:38→21:49)
[2017-08-19] MEDS: FLUTICASONE 50MCG/SPRAY NASAL 16GM EA NOSTRIL SCH ×2 (08:38→20:14)
[2017-08-19] MEDS: HEPARIN SODIUM,PORCINE 5,000 UNIT/ML 1 ML VIAL SQ SCH ×2 (08:42→20:14)
[2017-08-19 08:51] LABS: Calcium 10.5 mg/dL (8.4-10.2)
[2017-08-19] MEDS: MULTIVITAMINS, THERA 1 EACH TAB PO SCH (12:24)
--- NOTE | 2017-08-19 13:26 | P.PN ---
Subjective Progress Note Date: 08/19/17 Principal diagnosis: Right middle lobe and right lower lobe pneumonia, acute hypoxic respiratory failure, recent CVA/TIA, severe morbid obesity, severe degree of sleep disorder breathing and sleep apnea 08/19/2017, patient seen and evaluated examined during the rounds her symptoms of cough congestion shortness breath is slightly better and improved she able to breathing relatively better patient has intermittent episodes of hiccups- like sensation however currently not an active issue on specific questioning she has a chronic long-standing history of it, patient has been tolerating breathing treatment antibiotics fairly well him on blood culture no growth so far 82-year-old female with history of severe degree of obstructive sleep apnea and severe degree of sleep disorder breathing patient has not been feeling well for the last 2-3 weeks with slow progressive worsening in terms is started about a week ago when she started having increased cough congestion her symptoms of progressive and eventually came into emergency department where she was seen eval reexamined found to have a right middle lobe pneumonia she is being treated with antibiotics I reviewed her x-ray at the time admission and today some improvement in infiltrates have been noted. And is currently recovering from a small TIA undergoing rehabilitation she also has a sleep disorder breathing and sleep apnea for which her BiPAP setting has been adjusted and machine is being arranged as well patient setting. Objective - Vital Signs Vital signs: Vital Signs Temp 98.0 F 08/19/17 07:59 Pulse 69 08/19/17 12:08 Resp 19 08/19/17 12:08 BP 140/66 08/19/17 07:59 Pulse Ox 95 08/19/17 08:21 Intake & Output 08/18/17 08/19/17 08/19/17 18:59 06:59 18:59 Intake Total 1280 120 Balance 1280 120 Intake: Intake, IV Titration 400 120 Amount Sodium Chloride 0.9% 1, 400 120 000 ml @ 50 mls/hr IV . Q[facility]H [facility] Rx#:[id number] Oral 880 Other: Voiding Method Toilet Toilet Toilet # Voids 2 1 - Exam Limitations: no limitations General appearance: alert, in no apparent distress Head exam: Present: atraumatic, normocephalic Eye exam: Present: normal appearance, PERRL ENT exam: Present: normal oropharynx Neck exam: Present: normal inspection Respiratory exam: Present: normal lung sounds bilaterally Cardiovascular Exam: Present: regular rate, normal rhythm GI/Abdominal exam: Present: soft. Absent: tenderness Extremities exam: Present: pedal edema. Absent: calf tenderness Neurological exam: Present: alert, oriented X3, CN II-XII intact. Absent: motor sensory deficit Expanded Speech: Present: fluid speech Cranial nerves: EOM's Intact: Normal Motor strength exam: RUE: 5, LUE: 5, RLE: 5, LLE: 5 Psychiatric exam: Present: normal affect, normal mood Skin exam: Present: normal color - Labs CBC & Chem 7: 08/19/17 08:01 08/19/17 08:01 Labs: Abnormal Lab Results - Last 24 Hours (Table) 08/19/17 08/19/17 Range/Units 08:01 08:01 MCV 101.3 H (80.0-100.0) fL BUN 22 H (7-17) mg/dL Creatinine 1.26 H (0.52-1.04) mg/dL Calcium 10.5 H (8.4-10.2) mg/dL Microbiology - Last 24 Hours (Table) 08/17/17 13:50 Blood Culture - Preliminary Blood No Growth after 24 hours Assessment and Plan Assessment: Right middle lobe pneumonia/right lower lobe pneumonia given history of TIA and stroke mixed bacterial and/or or gram-negative pneumonia cannot be excluded Severe degree of obstructive sleep apnea and morbid obesity Hypertension hypertensive cardiovascular disease Ovarian cancer Generative joint disease osteoarthritis Severe morbid obesity Recent TIA and CVA Plan: Would continue antibiotics as well as breathing treatments continue gentle rehydration maintain patient on DVT and peptic ulcer disease prophylaxis will follow clinical course closely, patient will be resumed on BiPAP as noted above once arranged Time with Patient: Greater than 30
[2017-08-19] MEDS: AZITHROMYCIN 500 MG TAB PO SCH (20:13)
[2017-08-19] MEDS: ATORVASTATIN 40 MG TAB PO SCH (20:14)
--- NOTE | 2017-08-19 21:11 | PN ---
PROGRESS NOTE DATE OF SERVICE: 08/19/2017 This 82-year-old woman who was admitted with acute right middle lobe pneumonia with possibly gram-negative community-acquired pneumonia is being closely monitored. No chest pain. No palpitations. No fever. Dr. Benitez is following the patient closely. EXAM: Alert and oriented x3. Pulse 60, blood pressure 130/74, respirations 16, temperature 98.2, pulse ox 98% on 2L. HEENT: Conjunctivae normal. NECK: No jugular venous distention. CARDIOVASCULAR: S1, S2 muffled. RESPIRATORY: Breath sounds diminished in the bases. Scattered rhonchi and crackles. ABDOMEN: Soft, nontender. LEGS: No edema. NERVOUS SYSTEM: No focal deficits. LABS: Creatinine is 1.26. Influenza is negative. ASSESSMENT: 1. Acute right middle pneumonia, possibly gram-negative community-acquired. 2. Hypertension. 3. History of pneumonia. 4. History of chronic back pain. 5. History of ovarian cancer. 6. History of back pain secondary to degenerative joint disease. 7. History of hernia surgery. 8. Mild acute renal failure, possibly prerenal acute tubular necrosis. RECOMMENDATIONS AND DISCUSSION: In this 82-year-old woman who presented with multiple complex medical issues, will monitor the patient closely, continue with the current medical management and symptomatic treatment. Otherwise at this time, I would recommend continuing with antibiotics. Otherwise, guarded prognosis because of multiple complex medical issues. Further recommendations to follow. MMEDUAR / STEVAN: [id number] /
[2017-08-19] MEDS: METOPROLOL SUCCINATE (ER) 25 MG TAB.ER.24H PO SCH (21:48)
[2017-08-19] MEDS: cefTRIAXone IN SWFI 1,000 MG/10 ML SYRINGE IVP SCH (21:49)
[2017-08-20] MEDS: LEVOTHYROXINE 100 MCG TAB PO SCH (06:02)
[2017-08-20] MEDS: LEVOTHYROXINE 75 MCG TAB PO SCH (06:02)
[2017-08-20] MEDS: IPRATROPIUM-ALBUTEROL 3 ML NEB INHALATION SCH ×2 (07:22→13:38)
--- NOTE | 2017-08-20 08:48 | P.PN ---
Subjective Progress Note Date: 08/20/17 Principal diagnosis: Right middle lobe and right lower lobe pneumonia, acute hypoxic respiratory failure, recent CVA/TIA, severe morbid obesity, severe degree of sleep disorder breathing and sleep apnea 08/20/2017, patient seen eval examined during the rounds from respiratory standpoint doing relatively much better breathing comfortably denies any chest pain cuff congestion shortness of breath has improved no more episodes of tremor hiccups are muscle fasciculation seen as reported previously 08/19/2017, patient seen and evaluated examined during the rounds her symptoms of cough congestion shortness breath is slightly better and improved she able to breathing relatively better patient has intermittent episodes of hiccups- like sensation however currently not an active issue on specific questioning she has a chronic long-standing history of it, patient has been tolerating breathing treatment antibiotics fairly well him on blood culture no growth so far 82-year-old female with history of severe degree of obstructive sleep apnea and severe degree of sleep disorder breathing patient has not been feeling well for the last 2-3 weeks with slow progressive worsening in terms is started about a week ago when she started having increased cough congestion her symptoms of progressive and eventually came into emergency department where she was seen eval reexamined found to have a right middle lobe pneumonia she is being treated with antibiotics I reviewed her x-ray at the time admission and today some improvement in infiltrates have been noted. And is currently recovering from a small TIA undergoing rehabilitation she also has a sleep disorder breathing and sleep apnea for which her BiPAP setting has been adjusted and machine is being arranged as well patient setting. Objective - Vital Signs Vital signs: Vital Signs Temp 98.5 F 08/19/17 21:49 Pulse 63 08/20/17 07:34 Resp 20 08/19/17 21:49 BP 125/79 08/19/17 21:49 Pulse Ox 94 L 08/20/17 07:22 Intake & Output 08/19/17 08/20/17 08/20/17 18:59 06:59 18:59 Intake Total 400 Balance 400 Intake: Intake, IV Titration 400 Amount Sodium Chloride 0.9% 1, 400 000 ml @ 50 mls/hr IV . Q20H [facility] Rx#:[id number] Other: Voiding Method Toilet Toilet # Voids 2 - Exam Limitations: no limitations General appearance: alert, in no apparent distress Head exam: Present: atraumatic, normocephalic Eye exam: Present: normal appearance, PERRL ENT exam: Present: normal oropharynx Neck exam: Present: normal inspection Respiratory exam: Present: normal lung sounds bilaterally Cardiovascular Exam: Present: regular rate, normal rhythm GI/Abdominal exam: Present: soft. Absent: tenderness Extremities exam: Present: pedal edema. Absent: calf tenderness Neurological exam: Present: alert, oriented X3, CN II-XII intact. Absent: motor sensory deficit Expanded Speech: Present: fluid speech Cranial nerves: EOM's Intact: Normal Motor strength exam: RUE: 5, LUE: 5, RLE: 5, LLE: 5 Psychiatric exam: Present: normal affect, normal mood Skin exam: Present: normal color - Labs CBC & Chem 7: 08/19/17 08:01 08/19/17 08:01 Labs: Abnormal Lab Results - Last 24 Hours (Table) 08/19/17 08/19/17 Range/Units 08:01 08:01 MCV 101.3 H (80.0-100.0) fL BUN 22 H (7-17) mg/dL Creatinine 1.26 H (0.52-1.04) mg/dL Calcium 10.5 H (8.4-10.2) mg/dL Microbiology - Last 24 Hours (Table) 08/17/17 13:50 Blood Culture - Preliminary Blood No Growth after 48 hours Assessment and Plan Assessment: Right middle lobe pneumonia/right lower lobe pneumonia given history of TIA and stroke mixed bacterial and/or or gram-negative pneumonia cannot be excluded Severe degree of obstructive sleep apnea and morbid obesity Hypertension hypertensive cardiovascular disease Ovarian cancer Generative joint disease osteoarthritis Severe morbid obesity Recent TIA and CVA Plan: Would continue antibiotics as well as breathing treatments continue gentle rehydration maintain patient on DVT and peptic ulcer disease prophylaxis will follow clinical course closely, patient will be resumed on BiPAP as noted above once arranged, patient be discharged home from pulmonary standpoint oral antibiotics breathing treatments and supportive care will follow on outpatient setting Time with Patient: Greater than 30
[2017-08-20] MEDS: FLUTICASONE 50MCG/SPRAY NASAL 16GM EA NOSTRIL SCH (08:57)
[2017-08-20 08:58] LABS: Basophils % (A) 0 %; Eosinophils # (A) 0.3 k/uL (0-0.7); Eosinophils % (A) 5 %; HCT 42.3 % (34.0-46.0); HGB 13.3 gm/dL (11.4-16.0); Hypochromasia Slight; Lymphocytes # (A) 1.4 k/uL (1.0-4.8); Lymphocytes % (A) 18 %; MCH 31.8 pg (25.0-35.0); MCHC 31.4 g/dL (31.0-37.0); Macrocytosis Slight; Mean Platelet Volume 8.3; Monocytes # (A) 0.4 k/uL (0-1.0); Monocytes % (A) 5 %; Neutrophils # (A) 5.4 k/uL (1.3-7.7); Neutrophils % (A) 71 %; Platelet Count 173 k/uL (150-450); RBC 4.19 m/uL (3.80-5.40); WBC 7.5 k/uL (3.8-10.6)
[2017-08-20] MEDS: TRIAMTERENE-HCTZ 37.5-25MG 1 EACH CAP PO SCH (08:59)
[2017-08-20] MEDS: PANTOPRAZOLE 40 MG TABLET PO SCH (08:59)
[2017-08-20] MEDS: AMITRIPTYLINE HCL 10 MG TAB PO SCH (09:00)
[2017-08-20] MEDS: LISINOPRIL 20 MG TAB PO SCH (09:00)
[2017-08-20] MEDS: PREGABALIN 75 MG CAP PO SCH (09:00)
[2017-08-20] MEDS: HEPARIN SODIUM,PORCINE 5,000 UNIT/ML 1 ML VIAL SQ SCH (09:01)
[2017-08-20 09:26] LABS: Calcium 10.6 mg/dL (8.4-10.2); Potassium 5.1 mmol/L (3.5-5.1)
[2017-08-20 10:21] VITALS: PULSE 65; RESP 18
[2017-08-20 10:25] VITALS: BP 104/58; TEMP 97.6
[2017-08-20] MEDS: HYDROcodone/APAP 7.5-325MG 1 EACH TAB PO PRN (11:07)
[2017-08-20] MEDS: MULTIVITAMINS, THERA 1 EACH TAB PO SCH (12:59)
--- NOTE | 2017-08-20 14:09 | DS ---
DISCHARGE SUMMARY FINAL DIAGNOSES: 1. Acute right lower lobe pneumonia, possibly gram-negative community-acquired, improved. 2. Hypertension. 3. Mild hypercalcemia. 4. Mild acute renal failure, possibly prerenal renal failure. 5. History of pneumonia. 6. History of chronic back pain. 7. History of ovarian cancer. 8. Back pain secondary to degenerative joint disease. 9. History of hernia surgery. DISCHARGE DISPOSITION: The patient will be discharged in a stable condition with guarded prognosis. HISTORY OF PRESENT ILLNESS: This is an 82-year-old woman with past medical history of multiple medical problems admitted with acute right middle lobe pneumonia, possibly gram-negative, community- acquired. The patient was treated with IV antibiotics. Dr. Benitez, patternator saw the patient. Patient improved significantly. On exam, vital signs are stable. CARDIOVASCULAR SYSTEM: S1, S2. ABDOMEN: Soft. NERVOUS SYSTEM: No focal deficits. Influenza is negative. However, the creatinine was up to 1.47 indicating mild acute renal failure. Dyazide was held, to be evaluated in the outpatient setting by Dr. Ortega. Otherwise, patient also had a calcium of 10.6. Parathyroid hormone will be checked and recommended the patient to have outpatient followup with CBC, BMP. DISCHARGE ADVICE: 1. Diet is cardiac. 2. Activity limited until followup. 3. Follow up with Dr. Ortega in 2 to 3 days. 4. Follow up with Dr. Benitez as recommended. MEDICATIONS WILL BE: 1. Elavil 10 mg p.o. b.i.d. 2. Artificial tears. 3. Lipitor 40 mg q.h.s. 4. Zithromax 500 mg p.o. daily for 5 7 days. 5. Ceftin 500 mg p.o. b.i.d. for 7 days. 6. Clobetasol Propionate 1 application topically. 7. Clotrimazole 1 application topically. 8. Desonate 1 application topically. 9. Flonase nasal spray 2 sprays b.i.d. 10.Hydrocodone 1 tablet t.i.d. p.r.n. 11.Synthroid 175 mcg p.o. daily. 12.Lisinopril 20 mg p.o. b.i.d. 13.Toprol-XL 25 mg q.h.s. 14.Multivitamin 1 p.o. daily. 15.Lyrica 150 mg p.o. b.i.d. 16.Requip 2 mg p.o. q.h.s. 17.Hold Dyazide for now. Once again, the patient will be discharged in a stable condition with guarded prognosis. Total time taken 35 minutes. TAMIA / STEVAN: [id number] /
== END 2017-08-20 14:05 | disposition home health service (06) | DRG 178 ==
LOC: EC 12:42 → 5MS5E 16:04 → OBSVTOIN 08-18 11:58
PROVIDERS: ADMIT Hospitalist; ATTEND Hospitalist
DX: J15.6 Pneumonia due to other Gram-negative bacteria (principal); Z68.42 Body mass index [BMI] 45.0-49.9, adult; N17.9 Acute kidney failure, unspecified; E66.01 Morbid (severe) obesity due to excess calories; E83.52 Hypercalcemia; I11.9 Hypertensive heart disease without heart failure; G47.33 Obstructive sleep apnea (adult) (pediatric); G89.29 Other chronic pain; M47.9 Spondylosis, unspecified; R06.6 Hiccough; M19.91 Primary osteoarthritis, unspecified site; Z79.51 Long term (current) use of inhaled steroids; Z79.899 Other long term (current) drug therapy; Z88.0 Allergy status to penicillin; Z85.43 Personal history of malignant neoplasm of ovary; Z90.710 Acquired absence of both cervix and uterus; Z86.73 Personal history of transient ischemic attack (TIA), and cerebral infarction without residual deficits; Z96.653 Presence of artificial knee joint, bilateral
CPT/HCPCS: 36415; 71046; 80048; 80053; 82550; 82553; 83880; 84484; 85025; 85379; 85610; 85730; 87040; 87502; 93005; 94640; 94760; 96365; 99285

== ENCOUNTER → 2017-08-24 | Outpatient (CLI) | payer MEDICARE ==
[2017-08-24 09:50] LABS: Anion Gap 12 mmol/L; Blood Urea Nitrogen 26 mg/dL (7-17); Calcium 10.2 mg/dL (8.4-10.2); Carbon Dioxide 30 mmol/L (22-30); Chloride 101 mmol/L (98-107); Glucose 104 mg/dL (74-99); Potassium 5.1 mmol/L (3.5-5.1); Sodium 143 mmol/L (137-145)
== END | disposition home or self-care (01) ==
LOC: LABWHC1 08:44
PROVIDERS: ATTEND Nurse Practitioner
DX: J18.9 Pneumonia, unspecified organism (principal)
CPT/HCPCS: 36415; 80048; 83970

== ENCOUNTER 2017-10-16 15:20 | Observation (INO) | payer MEDICARE ==
[2017-10-16] MEDS ORDERED: SODIUM CHLORIDE 0.9% 1,000 ML IV STA (16:06)
[2017-10-16 16:23] LABS: Basophils % (A) 0 %; Eosinophils # (A) 0.1 k/uL (0-0.7); Eosinophils % (A) 1 %; HCT 34.8 % (34.0-46.0); HGB 10.7 gm/dL (11.4-16.0); Lymphocytes # (A) 0.6 k/uL (1.0-4.8); Lymphocytes % (A) 10 %; MCH 30.4 pg (25.0-35.0); MCHC 30.8 g/dL (31.0-37.0); MCV 98.7 fL (80.0-100.0); Mean Platelet Volume 8.2; Monocytes # (A) 0.3 k/uL (0-1.0); Monocytes % (A) 6 %; Neutrophils # (A) 4.3 k/uL (1.3-7.7); Neutrophils % (A) 81 %; Platelet Count 136 k/uL (150-450); RBC 3.53 m/uL (3.80-5.40); RDW 13.4 % (11.5-15.5); WBC 5.3 k/uL (3.8-10.6)
[2017-10-16 16:30] LABS: Albumin 3.6 g/dL (3.5-5.0); Calcium 9.2 mg/dL (8.4-10.2); Creatine Kinase 61 U/L (30-135); D-Dimer 0.7 mg/L FEU (<0.60); Phosphorus 3.9 mg/dL (2.5-4.5); Potassium 4.8 mmol/L (3.5-5.1); Total Bilirubin 0.5 mg/dL (0.2-1.3)
[2017-10-16 16:34] LABS: Partial Thromboplastin Time 22.6 sec (22.0-30.0); Prothrombin Time 10.1 sec (9.0-12.0)
[2017-10-16 16:41] LABS: Creatine Kinase MB 1.1 ng/mL (0.0-2.4); Troponin I <0.012 ng/mL (0.000-0.034)
--- NOTE | 2017-10-16 16:50 | CT ---
EXAMINATION TYPE: CT brain wo con DATE OF EXAM: 10/16/2017 COMPARISON: NONE HISTORY: Weakness today. CT DLP: 2142.[address] of the brain was performed. The ventricles, basal cisterns and sulci overlying the cerebral convexities demonstrate mild enlargem ent. Left cerebellar encephalomalacia from prior surgical intervention. There is no evidence for intracranial hemorrhage or sulcal effacement. There is decreased attenuation about the periventricular white matter and deep white matter of both c erebral hemispheres, compatible with chronic small vessel ischemia. Differential diagnosis does inclu de demyelination. No mass effects are seen.No midline shift. Postoperative changes of left occipital craniotomy. If symptoms persist consider MRI. IMPRESSION: 1. Age related atrophic and chronic small vessel ischemic change without acute intracranial process s een at this time.
--- NOTE | 2017-10-16 16:56 | CT ---
EXAMINATION TYPE: CT lumbar spine wo con, CT sacrum wo con DATE OF EXAM: 10/16/2017 COMPARISON: NONE HISTORY: Weakness today. CT DLP: 2844.[address] of the sacrum and lumbar spine was performed. Bone and soft tissue window settings are submitted as well as coronal and sagittal reconstructions. There is moderate compression fracture of T10 of uncertain age and/or etiology. There is no definite bony retropulsion. Minimal paraspinal hematoma suggested. No additional compression fracture within t he [id number]. L1-L2: Vacuum disc noted compatible with severe degenerative disc disease. Posterior disc bulge. No disc herniation, central stenosis or lateral recess stenosis. L2-L3: Vacuum disc noted compatible with severe degenerative disc disease. Posterior disc bulge. No disc herniation, central stenosis or lateral recess stenosis. Right hemilaminectomy change. L3-L4: Vacuum disc noted compatible with severe degenerative disc disease. Moderate posterior disc bu lge. Hypertrophy of the ligamentum flavum and facet joint arthropathy result in moderate central sten osis. L4-L5: Vacuum disc noted compatible with severe degenerative disc disease. Posterior disc bulge. No disc herniation, central stenosis or lateral recess stenosis. L5-S1: Normal disc space height. No disc herniation protrusion or central stenosis. No facet joint arthropathy. No evidence for foraminal encroachment. No paraspinal masses are identified. Lumbar segments are free if fracture. Evaluation of the sacrum fails demonstrate evidence for a displaced or impacted fracture. No bony bisi tructive process noted. No evidence for presacral mass. IMPRESSION: 1. Moderate compression fracture of T10 of bony retropulsion of uncertain age and/or etiology althoug h is likely relatively recent. 2. Multilevel vacuum disc. Moderate central stenosis identified at L3-4.
--- NOTE | 2017-10-16 17:34 | XR ---
EXAMINATION: XR chest 2V DATE AND TIME: 10/16/2017 5:19 PM ORDERING PROVIDER: Anrdew Avitia DO CLINICAL INDICATION: Weakness TECHNIQUE: PA and lateral COMPARISON: None. DESCRIPTION: The overlying soft tissues are prominent. Given this factor, the lungs appear to be francia r. The pleural spaces are negative. The cardiac silhouette is mild moderately enlarged. The mediastin al and pleural silhouettes are unremarkable. The skeletal structures are intact without focal finding s. IMPRESSION: NO ACUTE PROCESS.
--- NOTE | 2017-10-16 17:40 | ED ---
General Adult HPI - General Chief complaint: Weakness Stated complaint: weakness Time Seen by Provider: 10/16/17 15:59 Source: EMS, RN notes reviewed, old records reviewed Mode of arrival: EMS - History of Present Illness Initial comments: This is an 82-year-old female to the ER for weakness and inability to ambulate. Back pain. Severe back pain. Patient has had significant weakness the last 3 days progressive worsening made much worse today. She has had multiple falls as of recent, she does have a history of back pain is pretty of severe back pain. Patient denies hitting her head injury. 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 Patient states her main complaint now is back pain and inability to ambulate - Related Data Home Medications Medication Instructions Recorded Confirmed Amitriptyline HCl [Elavil] 10 mg PO BID 12/24/16 10/16/17 Levothyroxine Sodium [Synthroid] 175 mcg PO DAILY 12/24/16 10/16/17 Lisinopril 20 mg PO BID 12/24/16 10/16/17 Artificial Tears-Hypromellose 1 drops BOTH EYES TID PRN 08/17/17 10/16/17 [Artificial Tear Drops] Atorvastatin [Lipitor] 40 mg PO HS 08/17/17 10/16/17 Clobetasol Propionate [Temovate 1 applic TOPICAL DAILY PRN 08/17/17 10/16/17 0.05% Cream] Clotrimazole/Betameth Cream 1 applic TOPICAL BID PRN 08/17/17 10/16/17 [Lotrisone] Desonide [Desonate] 1 applic TOPICAL DAILY PRN 08/17/17 10/16/17 Fluticasone Nasal [place] [Flonase 2 spr EA NOSTRIL BID 08/17/17 10/16/17 Nasal [place]] Metoprolol Succinate [Toprol XL] 25 mg PO HS 08/17/17 10/16/17 Multivitamins, Thera [Multivitamin 1 tab PO DAILY 08/17/17 10/16/17 (formulary)] DULoxetine HCL [Cymbalta] 20 mg PO DAILY 10/16/17 10/16/17 Furosemide [Lasix] 20 mg PO DAILY 10/16/17 10/16/17 Montelukast [Singulair] 10 mg PO HS 10/16/17 10/16/17 Trospium Chloride [Sanctura XR] 60 mg PO DAILY 10/16/17 10/16/17 rOPINIRole HCL [Requip] 2 mg PO HS 10/16/17 10/16/17 Previous Rx's Medication Instructions Recorded Pregabalin [Lyrica] 150 mg PO BID #60 capsule 08/20/17 Allergies Allergy/AdvReac Type Severity Reaction Status Date / Time Penicillins Allergy Swelling/it Verified 10/16/17 16:07 lolis Review of Systems ROS Statement: Those systems with pertinent positive or pertinent negative responses have been documented in the HPI. ROS Other: All systems not noted in ROS Statement are negative. Past Medical History Past Medical History: Cancer, Hypertension, Pneumonia Additional Past Medical History / Comment(s): chronic back pain, ovarian cancer back surgery, both kneess eplacement, abdominal hernia repair History of Any Multi-Drug Resistant Organisms: None Reported Past Surgical History: Back Surgery, Hernia Repair, Hysterectomy Additional Past Surgical History / Comment(s): jero knee,brain tumor removed, exp lap Past Anesthesia/Blood Transfusion Reactions: No Reported Reaction Past Psychological History: No Psychological Hx Reported Smoking Status: Never smoker Past Alcohol Use History: Rare Past Drug Use History: None Reported - Past Family History Father Family Medical History: Myocardial Infarction ([place]) Mother Additional Family Medical History / Comment(s): parkinson's Sister(s) Family Medical History: Cancer General Exam General appearance: alert, in no apparent distress, obese Head exam: Present: atraumatic, normocephalic, normal inspection Eye exam: Present: normal appearance, PERRL, EOMI. Absent: scleral icterus, conjunctival injection, periorbital swelling ENT exam: Present: normal exam, mucous membranes moist Neck exam: Present: normal inspection. Absent: tenderness, meningismus, lymphadenopathy Respiratory exam: Present: normal lung sounds bilaterally. Absent: respiratory distress, wheezes, rales, rhonchi, stridor Cardiovascular Exam: Present: regular rate, normal rhythm, normal heart sounds. Absent: systolic murmur, diastolic murmur, rubs, gallop, clicks GI/Abdominal exam: Present: soft, normal bowel sounds. Absent: distended, tenderness, guarding, rebound, rigid Extremities exam: Present: normal inspection, full ROM, normal capillary refill. Absent: tenderness, pedal edema, joint swelling, calf tenderness Back exam: Present: normal inspection Neurological exam: Present: alert, oriented X3, CN II-XII intact Psychiatric exam: Present: normal affect, normal mood Skin exam: Present: warm, dry, intact, normal color. Absent: rash Course Vital Signs 10/16/17 10/16/17 15:25 17:16 Temperature 97.9 F Pulse Rate 81 77 Respiratory 16 16 Rate Blood Pressure 112/56 107/55 O2 Sat by Pulse 95 98 Oximetry - Reevaluation(s) Reevaluation #1: 10/16/17 18:11 Patient unable to ambulate Reevaluation #2: 10/16/17 18:11 Patient's pain is improved EKG Findings - EKG Comments: EKG Findings:: EKG shows sinus rhythm rate of 79, pO2 84, QRS 128, QTC 497 Medical Decision Making - Medical Decision Making 82 female the ER for evaluation. Patient is here today status post recent falls , L-spine compression fracture, back pain, weakness and inability to ambulate. Patient be admitted for pain control - Lab Data Result diagrams: 10/16/17 15:37 10/16/17 15:37 Lab Results 10/16/17 10/16/17 10/16/17 Range/Units 15:37 15:37 15:37 WBC (3.8-10.6) k/uL RBC (3.80-5.40) m/uL Hgb (11.4-16.0) gm/dL Hct (34.0-46.0) % MCV (80.0-100.0) fL MCH (25.0-35.0) pg MCHC (31.0-37.0) g/dL RDW (11.5-15.5) % Plt Count (150-450) k/uL Neutrophils % % Lymphocytes % % Monocytes % % Eosinophils % % Basophils % % Neutrophils # (1.3-7.7) k/uL Lymphocytes # (1.0-4.8) k/uL Monocytes # (0-1.0) k/uL Eosinophils # (0-0.7) k/uL Basophils # (0-0.2) k/uL PT 10.1 (9.0-12.0) sec INR 1.0 (<1.2) APTT 22.6 (22.0-30.0) sec D-Dimer 0.70 H (<0.60) mg/L FEU Sodium 139 (137-145) mmol/L Potassium 4.8 (3.5-5.1) mmol/L Chloride 103 (98-107) mmol/L Carbon Dioxide 25 (22-30) mmol/L Anion Gap 11 mmol/L BUN 44 H (7-17) mg/dL Creatinine 1.10 H (0.52-1.04) mg/dL Est GFR (CKD-EPI)AfAm 54 (>60 ml/min/1.73 sqM) Est GFR (CKD-EPI)NonAf 47 (>60 ml/min/1.73 sqM) Glucose 108 H (74-99) mg/dL Calcium 9.2 (8.4-10.2) mg/dL Phosphorus 3.9 (2.5-4.5) mg/dL Magnesium 2.0 (1.6-2.3) mg/dL Total Bilirubin 0.5 (0.2-1.3) mg/dL AST 20 (14-36) U/L ALT 20 (9-52) U/L Alkaline Phosphatase 109 (38-126) U/L Total Creatine Kinase 61 (30-135) U/L CK-MB (CK-2) 1.1 (0.0-2.4) ng/mL CK-MB (CK-2) Rel Index 1.8 Troponin I <0.012 (0.000-0.034) ng/mL Total Protein 6.0 L (6.3-8.2) g/dL Albumin 3.6 (3.5-5.0) g/dL 10/16/17 Range/Units 15:37 WBC 5.3 (3.8-10.6) k/uL RBC 3.53 L (3.80-5.40) m/uL Hgb 10.7 L (11.4-16.0) gm/dL Hct 34.8 (34.0-46.0) % MCV 98.7 (80.0-100.0) fL MCH 30.4 (25.0-35.0) pg MCHC 30.8 L (31.0-37.0) g/dL RDW 13.4 (11.5-15.5) % Plt Count 136 L (150-450) k/uL Neutrophils % 81 % Lymphocytes % 10 % Monocytes % 6 % Eosinophils % 1 % Basophils % 0 % Neutrophils # 4.3 (1.3-7.7) k/uL Lymphocytes # 0.6 L (1.0-4.8) k/uL Monocytes # 0.3 (0-1.0) k/uL Eosinophils # 0.1 (0-0.7) k/uL Basophils # 0.0 (0-0.2) k/uL PT (9.0-12.0) sec INR (<1.2) APTT (22.0-30.0) sec D-Dimer (<0.60) mg/L FEU Sodium (137-145) mmol/L Potassium (3.5-5.1) mmol/L Chloride (98-107) mmol/L Carbon Dioxide (22-30) mmol/L Anion Gap mmol/L BUN (7-17) mg/dL Creatinine (0.52-1.04) mg/dL Est GFR (CKD-EPI)AfAm (>60 ml/min/1.73 sqM) Est GFR (CKD-EPI)NonAf (>60 ml/min/1.73 sqM) Glucose (74-99) mg/dL Calcium (8.4-10.2) mg/dL Phosphorus (2.5-4.5) mg/dL Magnesium (1.6-2.3) mg/dL Total Bilirubin (0.2-1.3) mg/dL AST (14-36) U/L ALT (9-52) U/L Alkaline Phosphatase (38-126) U/L Total Creatine Kinase (30-135) U/L CK-MB (CK-2) (0.0-2.4) ng/mL CK-MB (CK-2) Rel Index Troponin I (0.000-0.034) ng/mL Total Protein (6.3-8.2) g/dL Albumin (3.5-5.0) g/dL - Radiology Data Radiology results: report reviewed (CT brain, chest x-ray, CT lumbosacral area shows positive compression fracture), image reviewed Disposition Clinical Impression: Fall, Weak, Obesity, Lumbar compression fracture, Ataxia Disposition: ADMITTED IP TO THIS [facility] Condition: Fair Referrals: Shira Ortega MD [Primary Care Provider] - 1-2 days
--- NOTE | 2017-10-16 18:05 | US ---
EXAMINATION TYPE: US venous doppler duplex LE DATE OF EXAM: 10/16/2017 5:17 PM COMPARISON: NONE CLINICAL HISTORY: Pain. Bilateral hip pain and leg numbness SIDE PERFORMED: Bilateral TECHNIQUE: The lower extremity deep venous system is examined utilizing real time linear array sonog julio cesar with graded compression, doppler sonography and color-flow sonography. VESSELS IMAGED: External Iliac Vein (EIV) Common Femoral Vein Deep Femoral Vein Greater Saphenous Vein * Femoral Vein Popliteal Vein Small Saphenous Vein * Proximal Calf Veins (* superficial vessels) Difficult and limited study due to patient body habitus FINDINGS: Grayscale, color doppler, spectral doppler imaging performed of the deep veins of the lowe r extremities. There is normal flow, compressibility, vascular waveforms. IMPRESSION: NEGATIVE FOR DVT, BILATERAL LOWER EXTREMITIES.
[2017-10-16] MEDS ORDERED: MORPHINE SULFATE 4 MG/ML SYRINGE IVP STA (18:08)
[2017-10-16] MEDS ORDERED: MORPHINE SULFATE/PF 10MG/10ML VL IVP PRN (18:08)
[2017-10-16] MEDS ORDERED: MORPHINE SULFATE/PF 10MG/10ML VL IVP STA (18:22)
--- NOTE | 2017-10-16 18:29 | ED ---
Medical Decision Making - Lab Data Result diagrams: 10/16/17 15:37 10/16/17 15:37 Lab Results 10/16/17 10/16/17 10/16/17 Range/Units 15:37 15:37 15:37 WBC (3.8-10.6) k/uL RBC (3.80-5.40) m/uL Hgb (11.4-16.0) gm/dL Hct (34.0-46.0) % MCV (80.0-100.0) fL MCH (25.0-35.0) pg MCHC (31.0-37.0) g/dL RDW (11.5-15.5) % Plt Count (150-450) k/uL Neutrophils % % Lymphocytes % % Monocytes % % Eosinophils % % Basophils % % Neutrophils # (1.3-7.7) k/uL Lymphocytes # (1.0-4.8) k/uL Monocytes # (0-1.0) k/uL Eosinophils # (0-0.7) k/uL Basophils # (0-0.2) k/uL PT 10.1 (9.0-12.0) sec INR 1.0 (<1.2) APTT 22.6 (22.0-30.0) sec D-Dimer 0.70 H (<0.60) mg/L FEU Sodium 139 (137-145) mmol/L Potassium 4.8 (3.5-5.1) mmol/L Chloride 103 (98-107) mmol/L Carbon Dioxide 25 (22-30) mmol/L Anion Gap 11 mmol/L BUN 44 H (7-17) mg/dL Creatinine 1.10 H (0.52-1.04) mg/dL Est GFR (CKD-EPI)AfAm 54 (>60 ml/min/1.73 sqM) Est GFR (CKD-EPI)NonAf 47 (>60 ml/min/1.73 sqM) Glucose 108 H (74-99) mg/dL Calcium 9.2 (8.4-10.2) mg/dL Phosphorus 3.9 (2.5-4.5) mg/dL Magnesium 2.0 (1.6-2.3) mg/dL Total Bilirubin 0.5 (0.2-1.3) mg/dL AST 20 (14-36) U/L ALT 20 (9-52) U/L Alkaline Phosphatase 109 (38-126) U/L Total Creatine Kinase 61 (30-135) U/L CK-MB (CK-2) 1.1 (0.0-2.4) ng/mL CK-MB (CK-2) Rel Index 1.8 Troponin I <0.012 (0.000-0.034) ng/mL Total Protein 6.0 L (6.3-8.2) g/dL Albumin 3.6 (3.5-5.0) g/dL 10/16/17 Range/Units 15:37 WBC 5.3 (3.8-10.6) k/uL RBC 3.53 L (3.80-5.40) m/uL Hgb 10.7 L (11.4-16.0) gm/dL Hct 34.8 (34.0-46.0) % MCV 98.7 (80.0-100.0) fL MCH 30.4 (25.0-35.0) pg MCHC 30.8 L (31.0-37.0) g/dL RDW 13.4 (11.5-15.5) % Plt Count 136 L (150-450) k/uL Neutrophils % 81 % Lymphocytes % 10 % Monocytes % 6 % Eosinophils % 1 % Basophils % 0 % Neutrophils # 4.3 (1.3-7.7) k/uL Lymphocytes # 0.6 L (1.0-4.8) k/uL Monocytes # 0.3 (0-1.0) k/uL Eosinophils # 0.1 (0-0.7) k/uL Basophils # 0.0 (0-0.2) k/uL PT (9.0-12.0) sec INR (<1.2) APTT (22.0-30.0) sec D-Dimer (<0.60) mg/L FEU Sodium (137-145) mmol/L Potassium (3.5-5.1) mmol/L Chloride (98-107) mmol/L Carbon Dioxide (22-30) mmol/L Anion Gap mmol/L BUN (7-17) mg/dL Creatinine (0.52-1.04) mg/dL Est GFR (CKD-EPI)AfAm (>60 ml/min/1.73 sqM) Est GFR (CKD-EPI)NonAf (>60 ml/min/1.73 sqM) Glucose (74-99) mg/dL Calcium (8.4-10.2) mg/dL Phosphorus (2.5-4.5) mg/dL Magnesium (1.6-2.3) mg/dL Total Bilirubin (0.2-1.3) mg/dL AST (14-36) U/L ALT (9-52) U/L Alkaline Phosphatase (38-126) U/L Total Creatine Kinase (30-135) U/L CK-MB (CK-2) (0.0-2.4) ng/mL CK-MB (CK-2) Rel Index Troponin I (0.000-0.034) ng/mL Total Protein (6.3-8.2) g/dL Albumin (3.5-5.0) g/dL Disposition Clinical Impression: Fall, Weak, Obesity, Ataxia, Thoracic spine fracture Disposition: ADMITTED IP TO THIS HOSP Condition: Fair Referrals: Shira Ortega MD [Primary Care Provider] - 1-2 days
[2017-10-17 04:29] VITALS: BMI 49.6
[2017-10-17] MEDS: ENOXAPARIN 40 MG/0.4 ML SYRINGE SQ SCH (08:18)
[2017-10-17] MEDS ORDERED: HYDROCORTISONE 1% CREAM 30 GM TUBE TOPICAL PRN (10:21)
[2017-10-17] MEDS ORDERED: ARTIFICIAL TEARS-HYPROMELLOSE DROPS 15 ML BTL BOTH EYES PRN (10:21)
[2017-10-17] MEDS ORDERED: CLOTRIMAZOLE/BETAMETH 1-0.05% CREAM 45 GM TUBE TOPICAL PRN (10:21)
[2017-10-17] MEDS ORDERED: CLOBETASOL PROP 0.05% CR 15GM TOPICAL PRN (10:21)
[2017-10-17] MEDS ORDERED: traMADol 50 MG TAB PO PRN (11:00)
[2017-10-17] MEDS ORDERED: ACETAMINOPHEN TAB 325 MG TAB PO PRN (11:00)
--- NOTE | 2017-10-17 11:21 | P.HPIM ---
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 Patient has generalized weakness was admitted couple times in the hospital since and patient was never strong enough. Patient stood up felt weak and fell backwards. Patient had a recent stroke after which patient ended up having pneumonia twice and was hospitalized. Patient denied any fever chills dysuria patient denied any increased weakness and bilateral lower limbs area did the normal is comparing of severe back pain. Patient denied any cough runny nose sputum production. Review of Systems REVIEW OF SYSTEMS: CONSTITUTIONAL: No fever, no malaise, no fatigue. HEENT: No recent visual problems or hearing problems. Denied any sore throat. CARDIOVASCULAR: No chest pain, orthopnea, PND, no palpitations, no syncope. PULMONARY: No shortness of breath, no cough, no hemoptysis. GASTROINTESTINAL: No diarrhea, no nausea, no vomiting, no abdominal pain. Normoactive bowel sounds. NEUROLOGICAL: No headaches, no weakness, no numbness. HEMATOLOGICAL: Denies any bleeding or petechiae. GENITOURINARY: Denies any burning micturition, frequency, or urgency. MUSCULOSKELETAL/RHEUMATOLOGICAL: as Mentioned in HPI ENDOCRINE: Denies any polyuria or polydipsia. The rest of the 14-point review of systems is negative. Past Medical History Past Medical History: Cancer, Hypertension, Pneumonia Additional Past Medical History / Comment(s): chronic back pain, ovarian cancer History of Any Multi-Drug Resistant Organisms: None Reported Past Surgical History: Back Surgery, Hernia Repair, Hysterectomy Additional Past Surgical History / Comment(s): jero knee,brain tumor removed, exp lap Past Anesthesia/Blood Transfusion Reactions: No Reported Reaction Past Psychological History: No Psychological Hx Reported Smoking Status: Never smoker Past Alcohol Use History: Rare Past Drug Use History: None Reported - Past Family History Father Family Medical History: Myocardial Infarction ([place]) Mother Additional Family Medical History / Comment(s): parkinson's Sister(s) Family Medical History: Cancer Medications and Allergies Home Medications Medication Instructions Recorded Confirmed Type Amitriptyline HCl [Elavil] 10 mg PO BID 12/24/16 10/16/17 History Levothyroxine Sodium [Synthroid] 175 mcg PO DAILY 12/24/16 10/16/17 History Lisinopril 20 mg PO BID 12/24/16 10/16/17 History Artificial Tears-Hypromellose 1 drops BOTH EYES TID PRN 08/17/17 10/16/17 History [Artificial Tear Drops] Atorvastatin [Lipitor] 40 mg PO HS 08/17/17 10/16/17 History Clobetasol Propionate [Temovate 1 applic TOPICAL DAILY PRN 08/17/17 10/16/17 History 0.05% Cream] Clotrimazole/Betameth Cream 1 applic TOPICAL BID PRN 08/17/17 10/16/17 History [Lotrisone] Desonide [Desonate] 1 applic TOPICAL DAILY PRN 08/17/17 10/16/17 History Fluticasone Nasal [place] [Flonase 2 spr EA NOSTRIL BID 08/17/17 10/16/17 History Nasal [place]] Metoprolol Succinate [Toprol XL] 25 mg PO HS 08/17/17 10/16/17 History Multivitamins, Thera [Multivitamin 1 tab PO DAILY 08/17/17 10/16/17 History (formulary)] Pregabalin [Lyrica] 150 mg PO BID #60 capsule 08/20/17 10/16/17 Rx DULoxetine HCL [Cymbalta] 20 mg PO DAILY 10/16/17 10/16/17 History Furosemide [Lasix] 20 mg PO DAILY 10/16/17 10/16/17 History Montelukast [Singulair] 10 mg PO HS 10/16/17 10/16/17 History Trospium Chloride [Sanctura XR] 60 mg PO DAILY 10/16/17 10/16/17 History rOPINIRole HCL [Requip] 2 mg PO HS 10/16/17 10/16/17 History Allergies Allergy/AdvReac Type Severity Reaction Status Date / Time Penicillins Allergy Swelling/it Verified 10/16/17 16:07 lolis Physical Exam Vitals: Vital Signs Temp Pulse Pulse Resp BP BP Pulse Ox 10/17/17 08:34 96.1 F L 78 16 107/56 94 L 10/17/17 00:00 18 10/16/17 22:24 97.8 F 83 18 136/70 96 10/16/17 18:31 77 16 135/61 99 10/16/17 17:16 77 16 107/55 98 10/16/17 15:25 97.9 F 81 16 112/56 95 Intake and Output 10/16/17 10/17/17 10/17/17 22:59 06:59 14:59 Intake Total 1180 640 Balance 1180 640 Intake: Intake, IV Titration 400 Amount Sodium Chloride 0.9% 1, 400 000 ml @ 100 mls/hr IV . Q10H STA Rx#:[id number] Oral 1180 240 Other: # Voids 3 Weight 127.006 kg PHYSICAL EXAMINATION: GENERAL: The patient is alert and oriented x3, not in any acute distress. Well developed, well nourished. obese HEENT: Pupils are round and equally reacting to light. EOMI. No scleral icterus. No conjunctival pallor. Normocephalic, atraumatic. No pharyngeal erythema. No thyromegaly. CARDIOVASCULAR: S1 and S2 present. No murmurs, rubs, or gallops. PULMONARY: Chest is clear to auscultation, no wheezing or crackles. ABDOMEN: Soft, nontender, nondistended, normoactive bowel sounds. No palpable organomegaly. MUSCULOSKELETAL: No joint swelling or deformity. EXTREMITIES: No cyanosis, clubbing, or pedal edema. NEUROLOGICAL: She does have significant weakness and bilateral lower limbs with the 4/510 in severity appears to have significant generalized weakness SKIN: No rashes. Results CBC & Chem 7: 10/16/17 15:37 10/16/17 15:37 Labs: Abnormal Lab Results - Last 24 Hours (Table) 10/16/17 10/16/17 10/16/17 Range/Units 15:37 15:37 15:37 RBC 3.53 L (3.80-5.40) m/uL Hgb 10.7 L (11.4-16.0) gm/dL MCHC 30.8 L (31.0-37.0) g/dL Plt Count 136 L (150-450) k/uL Lymphocytes # 0.6 L (1.0-4.8) k/uL D-Dimer 0.70 H (<0.60) mg/L FEU BUN 44 H (7-17) mg/dL Creatinine 1.10 H (0.52-1.04) mg/dL Glucose 108 H (74-99) mg/dL Total Protein 6.0 L (6.3-8.2) g/dL Thrombosis Risk Factor Assmnt - Choose All That Apply Any of the Below Risk Factors Present?: Yes Each Factor Represents 1 point: Obesity (BMI >25) Other Risk Factors: Yes Each Risk Factor Represents 2 Points: Patient confined to bed Each Risk Factor Represents 3 Points: Age 75 years or older Other congenital or acquired thrombophilia - If yes, enter type in comment: No Thrombosis Risk Factor Assessment Total Risk Factor Score: 6 Thrombosis Risk Factor Assessment Level: High Risk Assessment and Plan Plan: -Fall back pain: Secondary to compression fracture PT and OT evaluation, we'll also obtain orthotic consultation patient will require subacute rehabitation. Pain management with tramadol Tylenol avoid narcotics considering her age. -Acute renal dysfunction: Secondary to Lasix and lisinopril which will be held temporarily patient doesn't have any history of heart failure. Gentle hydration. Repeat the basic metabolic profile tomorrow. -Obstructive sleep apnea: Uses CPAP machine and also independent with chronic respiratory failure 2 L of oxygen at home. I from hypertension hold off on lisinopril because of above-mentioned reasons -History of ovarian cancer in remission.
--- NOTE | 2017-10-17 11:48 | P.CNOR ---
History of Present Illness - [facility] Consult date: 10/17/17 Consult reason: fracture History of present illness: This is a 82-year-old female who presented to [facility] yesterday with regards to a fall at home. Patient had developed severe back pain after the fall and had a very difficult time standing with assistance. On arrival to the hospital, imaging and lab tests were done. Images demonstrated a T10 compression fracture, along with degenerative findings of the lumbar spine. She was admitted to the hospital with regards to weakness, inability to ambulate impact pain. She was admitted under internal medicine, orthopedic team was then consult. She is examined at bedside today, her 's present. She states she's had on-and-off back pain for more than 20 years. She's had no surgical intervention to the spine. She does have a history of bilateral total knee replacements. One limb was done in [place], the other one done in [place] by different orthopedic service. She states that she utilizes a walker around the house, she also has a scooter. Since the fall yesterday, her back pain has increased. Patient has had a few recent admissions to her hospital, one was with regards to pneumonia and generalized weakness. Patient states around Roly time of last year she had a stroke, which did affect her gait and strength She complains today of more discomfort in the low back. She denies any loss of bowel or bladder function. She denies any bilateral lower extremity pain, bilateral upper extremity pain, neck pain. She denies any headaches, lightheadedness, chest pain or fever chills. Review of Systems Constitutional: Reports as per [facility] Past Medical History Past Medical History: Cancer, Hypertension, Pneumonia Additional Past Medical History / Comment(s): chronic back pain, ovarian cancer History of Any Multi-Drug Resistant Organisms: None Reported Past Surgical History: Back Surgery, Hernia Repair, Hysterectomy Additional Past Surgical History / Comment(s): jero knee,brain tumor removed, exp lap Past Anesthesia/Blood Transfusion Reactions: No Reported Reaction Past Psychological History: No Psychological Hx Reported Smoking Status: Never smoker Past Alcohol Use History: Rare Past Drug Use History: None Reported - Past Family History Father Family Medical History: Myocardial Infarction ([place]) Mother Additional Family Medical History / Comment(s): parkinson's Sister(s) Family Medical History: Cancer Medications and Allergies Home Medications Medication Instructions Recorded Confirmed Type Amitriptyline HCl [Elavil] 10 mg PO BID 12/24/16 10/16/17 History Levothyroxine Sodium [Synthroid] 175 mcg PO DAILY 12/24/16 10/16/17 History Lisinopril 20 mg PO BID 12/24/16 10/16/17 History Artificial Tears-Hypromellose 1 drops BOTH EYES TID PRN 08/17/17 10/16/17 History [Artificial Tear Drops] Atorvastatin [Lipitor] 40 mg PO HS 08/17/17 10/16/17 History Clobetasol Propionate [Temovate 1 applic TOPICAL DAILY PRN 08/17/17 10/16/17 History 0.05% Cream] Clotrimazole/Betameth Cream 1 applic TOPICAL BID PRN 08/17/17 10/16/17 History [Lotrisone] Desonide [Desonate] 1 applic TOPICAL DAILY PRN 08/17/17 10/16/17 History Fluticasone Nasal [place] [Flonase 2 spr EA NOSTRIL BID 08/17/17 10/16/17 History Nasal [place]] Metoprolol Succinate [Toprol XL] 25 mg PO HS 08/17/17 10/16/17 History Multivitamins, Thera [Multivitamin 1 tab PO DAILY 08/17/17 10/16/17 History (formulary)] Pregabalin [Lyrica] 150 mg PO BID #60 capsule 08/20/17 10/16/17 Rx DULoxetine HCL [Cymbalta] 20 mg PO DAILY 10/16/17 10/16/17 History Furosemide [Lasix] 20 mg PO DAILY 10/16/17 10/16/17 History Montelukast [Singulair] 10 mg PO HS 10/16/17 10/16/17 History Trospium Chloride [Sanctura XR] 60 mg PO DAILY 10/16/17 10/16/17 History rOPINIRole HCL [Requip] 2 mg PO HS 10/16/17 10/16/17 History Allergies Allergy/AdvReac Type Severity Reaction Status Date / Time Penicillins Allergy Swelling/it Verified 10/16/17 16:07 lolis Physical Examination Tenderness with palpation surrounding the T10 vertebrae, along with paravertebral muscles. No significant tenderness in the lumbosacral region. No open lesions or sores visualized throughout the back Logroll maneuver the bilateral hips reproduces no significant groin pain. She is able to straight leg raise bilaterally. She can actively flex both knees past 90 minimal discomfort. No effusion present over the bilateral knees, she stable varus valgus bilaterally. Plantar flexion, dorsiflexion, EHL, FHL are intact. No significant strength defect is appreciated. Her dorsal pedis pulses 2+ bilaterally, her sensory exam light touch throughout the extremities intact. Active and passive motion are intact in the bilateral upper extremities, no significant strength defects appreciated with range of motion testing. Sensory exam light touch throughout bilateral upper extremities intact, the radial pulses bilaterally are 2+. Results - Labs Labs: Abnormal Lab Results - Last 24 Hours (Table) 10/16/17 10/16/17 10/16/17 Range/Units 15:37 15:37 15:37 RBC 3.53 L (3.80-5.40) m/uL Hgb 10.7 L (11.4-16.0) gm/dL MCHC 30.8 L (31.0-37.0) g/dL Plt Count 136 L (150-450) k/uL Lymphocytes # 0.6 L (1.0-4.8) k/uL D-Dimer 0.70 H (<0.60) mg/L FEU BUN 44 H (7-17) mg/dL Creatinine 1.10 H (0.52-1.04) mg/dL Glucose 108 H (74-99) mg/dL Total Protein 6.0 L (6.3-8.2) g/dL H & H 10/16/17 Range/Units 15:37 Hgb 10.7 L (11.4-16.0) gm/dL Hct 34.8 (34.0-46.0) % Coagulation 10/16/17 Range/Units 15:37 INR 1.0 (<1.2) Result Diagrams: 10/16/17 15:37 10/16/17 15:37 - Diagnostic results CT Scan - lumbar: report reviewed Assessment and Plan Plan: Imaging: Reports were reviewed of the lumbosacral CT. Report stated moderate compression fracture involving T10. Also degenerative changes noted throughout the lumbar spine. Assessment: 1. T10 compression fracture 2. Lumbar degenerative disc disease 3. History of recent fall 4. Multiple medical comorbidities Plan: I was able to discuss the case, including the physical exam findings and image reports with Dr. Barnett. We recommend conservative measures at this time, a TLSO brace was ordered. We recommend PT/OT evaluation with walker ambulation. Utilize the TLSO brace while ambulating Pain control Weight-bear as tolerated with walker and use of brace Medical recommendations GI and DVT prophylaxis per medical recommendation PT/OT evaluation Patient would likely benefit from stay at subacute rehab, we'll be available to answer any further questions Time with Patient: Less than 30
[2017-10-17] MEDS: HYDROcodone/APAP 5-325MG 1 EACH TAB PO PRN ×2 (12:20→20:29)
[2017-10-17] MEDS: SODIUM CHLORIDE 0.9% 1,000 ML IV SCH ×2 (12:20→23:42)
[2017-10-17] MEDS: FAMOTIDINE 20 MG TAB PO SCH (12:20)
[2017-10-17] MEDS: METOPROLOL SUCCINATE (ER) 25 MG TAB.ER.24H PO SCH (20:24)
[2017-10-17] MEDS: AMITRIPTYLINE HCL 10 MG TAB PO SCH (20:24)
[2017-10-17] MEDS: ATORVASTATIN 40 MG TAB PO SCH (20:24)
[2017-10-17] MEDS: MONTELUKAST 10 MG TAB PO SCH (20:24)
[2017-10-17] MEDS: PREGABALIN 75 MG CAP PO SCH (20:30)
[2017-10-17] MEDS: FLUTICASONE 50MCG/SPRAY NASAL 16GM EA NOSTRIL SCH (22:39)
[2017-10-18] MEDS: LEVOTHYROXINE 100 MCG TAB PO SCH (05:44)
[2017-10-18] MEDS: LEVOTHYROXINE 75 MCG TAB PO SCH (05:44)
[2017-10-18 07:52] LABS: HCT 35.1 % (34.0-46.0); HGB 11.4 gm/dL (11.4-16.0); MCH 31.7 pg (25.0-35.0); MCHC 32.4 g/dL (31.0-37.0); MCV 97.9 fL (80.0-100.0); Mean Platelet Volume 7.9; Platelet Count 134 k/uL (150-450); RBC 3.58 m/uL (3.80-5.40); RDW 13.1 % (11.5-15.5); WBC 4.8 k/uL (3.8-10.6)
[2017-10-18] MEDS: HYDROcodone/APAP 5-325MG 1 EACH TAB PO PRN (07:54)
[2017-10-18] MEDS: PREGABALIN 75 MG CAP PO SCH ×2 (07:54→21:26)
[2017-10-18] MEDS: FLUTICASONE 50MCG/SPRAY NASAL 16GM EA NOSTRIL SCH ×2 (07:55→21:14)
[2017-10-18] MEDS: ENOXAPARIN 40 MG/0.4 ML SYRINGE SQ SCH (07:55)
[2017-10-18] MEDS: FAMOTIDINE 20 MG TAB PO SCH (07:55)
[2017-10-18] MEDS: DULoxetine HCL 20 MG CAPSULE.DR PO SCH (07:55)
[2017-10-18] MEDS: AMITRIPTYLINE HCL 10 MG TAB PO SCH ×2 (07:55→21:06)
[2017-10-18 08:04] LABS: Calcium 9.2 mg/dL (8.4-10.2); Potassium 4.3 mmol/L (3.5-5.1)
[2017-10-18] MEDS: TROSPIUM CHLORIDE 60 MG PO SCH (09:02)
--- NOTE | 2017-10-18 10:40 | P.PN ---
Subjective Patient's pain is better controlled, patient was admitted for compression fracture of the lower thoracic vertebrae. Patient will be evaluated for inpatient rehabilitation. Constitutional: Denied any fatigue denied any fever. Cardio vascular: denied any chest pain, palpitations Gastrointestinal denied any nausea vomiting Pulmonary: Denied any shortness of breath cough Neurologic denied any new focal deficits Objective - Vital Signs Vital signs: Vital Signs Temp 96.6 F L 10/18/17 07:00 Pulse 68 10/18/17 08:00 Resp 16 10/18/17 08:00 BP 127/60 10/18/17 07:00 Pulse Ox 97 10/18/17 07:00 Intake & Output 10/17/17 10/18/17 10/18/17 18:59 06:59 18:59 Intake Total 1650 1680 240 Output Total 900 Balance 1650 780 240 Weight 127.006 kg Intake: Intake, IV Titration 450 900 Amount Sodium Chloride 0.9% 1, 450 900 000 ml @ 75 mls/hr IV . [id number] [facility] Rx#:[id number] Oral 1200 780 240 Output: Urine 900 Other: Voiding Method Bedpan Bedpan Bedpan # Voids 1 1 2 - Exam PHYSICAL EXAMINATION: GENERAL: The patient is alert and oriented x3, not in any acute distress. Well developed, well nourished. obese HEENT: Pupils are round and equally reacting to light. EOMI. No scleral icterus. No conjunctival pallor. Normocephalic, atraumatic. No pharyngeal erythema. No thyromegaly. CARDIOVASCULAR: S1 and S2 present. No murmurs, rubs, or gallops. PULMONARY: Chest is clear to auscultation, no wheezing or crackles. ABDOMEN: Soft, nontender, nondistended, normoactive bowel sounds. No palpable organomegaly. MUSCULOSKELETAL: No joint swelling or deformity. EXTREMITIES: No cyanosis, clubbing, or pedal edema. NEUROLOGICAL: She does have significant weakness and bilateral lower limbs with the 4/510 in severity appears to have significant generalized weakness SKIN: No rashes. - Labs CBC & Chem 7: 10/18/17 07:07 10/18/17 07:07 Labs: Abnormal Lab Results - Last 24 Hours (Table) 10/18/17 10/18/17 Range/Units 07:07 07:07 RBC 3.58 L (3.80-5.40) m/uL Plt Count 134 L (150-450) k/uL Carbon Dioxide 32 H (22-30) mmol/L BUN 24 H (7-17) mg/dL Assessment and Plan Plan: -Fall back pain: Secondary to compression fracture PT and OT evaluation, appreciate orthopedic surgery recommendations and the patient will be evaluated for inpatient rehabilitation. Pain management with tramadol Tylenol avoid narcotics considering her age. -Acute renal dysfunction: Improved with IV fluid hydration. IV fluids will be discontinued. -Obstructive sleep apnea: Uses CPAP machine and also independent with chronic respiratory failure 3 L of oxygen at home. I from hypertension hold off on lisinopril because of above-mentioned reasons -History of ovarian cancer in remission.
[2017-10-18] MEDS: MULTIVITAMINS, THERA 1 EACH TAB PO SCH (12:37)
[2017-10-18] MEDS: METOPROLOL SUCCINATE (ER) 25 MG TAB.ER.24H PO SCH (21:06)
[2017-10-18] MEDS: MONTELUKAST 10 MG TAB PO SCH (21:06)
[2017-10-18] MEDS: ATORVASTATIN 40 MG TAB PO SCH (21:06)
[2017-10-19] MEDS: LEVOTHYROXINE 100 MCG TAB PO SCH (05:37)
[2017-10-19] MEDS: LEVOTHYROXINE 75 MCG TAB PO SCH (05:37)
--- NOTE | 2017-10-19 06:56 | P.CONS ---
History of Present Illness - Chief Complaint Walking difficulty - History of Present Illness I had the opportunity to see patient for inpatient rehab consultation with regard to walking difficulty. She was admitted to [facility] October 16 with acute onset back pain and lower extremity weakness. Lumbar CT demonstrated T10 compression, only. Head CT with age-related and small vessel change only. Chest x-ray negative. Lower extremity Doppler negative for DVT. Seen by Dr. Tellez for orthopedic. PT and OT prescribed. Previous functional history as elicited from patient: 82-year-old right-handed white female who is lives in one floor [facility], with basement, with . Retired. Sugars cooking and laundry with on the 's been doing more lately. generally does the driving although patient can drive. Describes independent with sitdown shower and gait with 4 wheeled walker. Doesn't smoke and very rare drink. Dr. Ortega is regular doctor. Family history father with cardiac disease and mother with Parkinson. Review of Systems Review of systems: ENT: Denies sneezes or discharge. Eyes: Denies discharge or photophobia. Cardiac: Denies chest pain or palpitation. Pulmonary: Denies cough or shortness of breath. Breast: Denies discharge or lumps. Gastrointestinal: Denies nausea, emesis, constipation, diarrhea. Genitourinary: Denies discharge or frequency. Musculoskeletal: Back pain. Neurologic: Some lower extremity weakness. Endocrine: Denies shakes or sweats. Oncology: Denies cancers. Dermatologic: Denies rash, itching, pruritus. ALLERGY/immunology: Denies sneezes, rashes. Past Medical History Past Medical History: Cancer, Hypertension, Pneumonia Additional Past Medical History / Comment(s): chronic back pain, ovarian cancer History of Any Multi-Drug Resistant Organisms: None Reported Past Surgical History: Back Surgery, Hernia Repair, Hysterectomy Additional Past Surgical History / Comment(s): jero knee,brain tumor removed, exp lap Past Anesthesia/Blood Transfusion Reactions: No Reported Reaction Past Psychological History: No Psychological Hx Reported Smoking Status: Never smoker Past Alcohol Use History: Rare Past Drug Use History: None Reported - Past Family History Father Family Medical History: Myocardial Infarction ([place]) Mother Additional Family Medical History / Comment(s): parkinson's Sister(s) Family Medical History: Cancer Medications and Allergies Home Medications Medication Instructions Recorded Confirmed Type Amitriptyline HCl [Elavil] 10 mg PO BID 12/24/16 10/16/17 History Levothyroxine Sodium [Synthroid] 175 mcg PO DAILY 12/24/16 10/16/17 History Lisinopril 20 mg PO BID 12/24/16 10/16/17 History Artificial Tears-Hypromellose 1 drops BOTH EYES TID PRN 08/17/17 10/16/17 History [Artificial Tear Drops] Atorvastatin [Lipitor] 40 mg PO HS 08/17/17 10/16/17 History Clobetasol Propionate [Temovate 1 applic TOPICAL DAILY PRN 08/17/17 10/16/17 History 0.05% Cream] Clotrimazole/Betameth Cream 1 applic TOPICAL BID PRN 08/17/17 10/16/17 History [Lotrisone] Desonide [Desonate] 1 applic TOPICAL DAILY PRN 08/17/17 10/16/17 History Fluticasone Nasal [place] [Flonase 2 spr EA NOSTRIL BID 08/17/17 10/16/17 History Nasal [place]] Metoprolol Succinate [Toprol XL] 25 mg PO HS 08/17/17 10/16/17 History Multivitamins, Thera [Multivitamin 1 tab PO DAILY 08/17/17 10/16/17 History (formulary)] Pregabalin [Lyrica] 150 mg PO BID #60 capsule 08/20/17 10/16/17 Rx DULoxetine HCL [Cymbalta] 20 mg PO DAILY 10/16/17 10/16/17 History Furosemide [Lasix] 20 mg PO DAILY 10/16/17 10/16/17 History Montelukast [Singulair] 10 mg PO HS 10/16/17 10/16/17 History Trospium Chloride [Sanctura XR] 60 mg PO DAILY 10/16/17 10/16/17 History rOPINIRole HCL [Requip] 2 mg PO HS 10/16/17 10/16/17 History Allergies Allergy/AdvReac Type Severity Reaction Status Date / Time Penicillins Allergy Swelling/it Verified 10/16/17 16:07 lolis Physical Exam Vitals: Vital Signs Temp Pulse Resp BP Pulse Ox 10/18/17 23:56 18 10/18/17 21:35 97.9 F 82 18 134/62 90 L 10/18/17 15:37 75 18 10/18/17 15:00 96.5 F L 75 18 138/55 93 L 10/18/17 08:00 68 16 10/18/17 07:00 96.6 F L 68 16 127/60 97 Intake and Output 10/18/17 10/18/17 10/19/17 14:59 22:59 06:59 Intake Total 1200 Output Total 900 600 Balance 300 -600 Intake: Oral 1200 Output: Urine 900 600 Other: Voiding Method Bedpan Toilet Toilet # Voids 2 1 2 Skin: Good color, texture, turgor. General: Obese build and comfortable appearance. Head: Normocephalic, atraumatic. Eyes: Symmetric. Pupils equal round. Ears: Symmetric. Hearing within normal limits. Mouth: Clear. Neck: Supple. Carotid without bruit. Cardiac: Regular rate and rhythm. Lungs: Clear anteriorly and posteriorly. Abdomen: Soft active nontender. Obese. Extremities: Normal tone. Obese. Neurological: Mental status: Alert, cooperative, pleasant. Cranial nerves: Symmetric facial tone and trapezius. Motor: Actively elevates arms off of bed but poor elevation of legs. Sensation: Intact throughout. DTRs: Symmetric and equal throughout. Mobility: Requires two-person assist to get up into head of bed, and reverse Trendelenburg. Results CBC & Chem 7: 10/18/17 07:07 10/18/17 07:07 Labs: Abnormal Lab Results - Last 24 Hours (Table) 10/18/17 10/18/17 Range/Units 07:07 07:07 RBC 3.58 L (3.80-5.40) m/uL Plt Count 134 L (150-450) k/uL Carbon Dioxide 32 H (22-30) mmol/L BUN 24 H (7-17) mg/dL Chest x-ray: report reviewed (Negative.) CT Scan - head: report reviewed (Age-related change and small vessel atrophy.) Venous US: report reviewed (Negative for lower extremity DVT.) Assessment and Plan (1) Thoracic spine fracture Current Visit: Yes Status: Acute Code(s): S22.009A - UNSP FRACTURE OF UNSP THORACIC VERTEBRA, INIT FOR CLOS FX SNOMED Code(s): 202746442 Plan: Impression: 1. Walking difficulty. 2. T10 compression fracture, acute. 3. Lower extremity weakness. 4. Morbid obesity. 5. Hypertension. Comments and plan: At this time PT and OT are ordered. We'll follow therapies with yourself.
[2017-10-19 07:43] VITALS: RESP 16
[2017-10-19] MEDS: FLUTICASONE 50MCG/SPRAY NASAL 16GM EA NOSTRIL SCH ×2 (08:11→21:24)
[2017-10-19] MEDS: FAMOTIDINE 20 MG TAB PO SCH (08:11)
[2017-10-19] MEDS: DULoxetine HCL 20 MG CAPSULE.DR PO SCH (08:11)
[2017-10-19] MEDS: AMITRIPTYLINE HCL 10 MG TAB PO SCH ×2 (08:11→21:24)
[2017-10-19] MEDS: TROSPIUM CHLORIDE 60 MG PO SCH (08:11)
[2017-10-19] MEDS: ENOXAPARIN 40 MG/0.4 ML SYRINGE SQ SCH (08:12)
[2017-10-19] MEDS: PREGABALIN 75 MG CAP PO SCH ×2 (08:14→21:35)
[2017-10-19] MEDS: HYDROcodone/APAP 5-325MG 1 EACH TAB PO PRN ×2 (09:33→21:23)
[2017-10-19] MEDS: MULTIVITAMINS, THERA 1 EACH TAB PO SCH (11:42)
--- NOTE | 2017-10-19 13:09 | P.DS ---
Providers Date of admission: 10/16/17 18:09 Expected date of discharge: 10/19/17 Attending physician: Anibal Garcia Consults: 10/17/17 10:25 Consult Physician Routine Consulting Provider: Abdullahi Simon Consult Reason/Comments: Inpatient rehab after discharge Do you want consulting provider notified?: Already Contacted Primary care physician: Shira Ortega Hospital Course: Final Diagnoses: -Fall back pain: Secondary to T10 compression fracture. lumbar degenerative disc diseasePain management with tramadol Tylenol avoid narcotics considering her age. -Acute renal dysfunction: Improved with IV fluid hydration -Obstructive sleep apnea: Uses CPAP machine and also independent with chronic respiratory failure 3 L of oxygen at home. -hypertension hold off on lisinopril because of above-mentioned reasons -History of ovarian cancer in remission. Hospital course: This is an 82-year-old female admitted with compression fracture of the lower thoracic vertebrae. lumbosacral CT reported moderate compression fracture involving T10, degenerative changes throughout the lumbar spine. Evaluated by orthopedics. Conservative management recommended with TLSO brace as well as inpatient rehab. Patient is being discharged to [facility] inpatient rehab in a stable condition with guarded prognosis. Physical Exam:VSS, CV: Regular S1 and S2. LUNGS: Clear to auscultationABD: Soft , nontender, positive bowel sounds. NEURO: significant weakness- bilateral lower limbs with significant generalized weakness. The impression and plan of care has been dictated as directed. : I performed a history and examination of this patient, discussed the same with the dictator. I agree with the dictator's note ,documented as a scribe. Any additional findings or plans will be noted. time taken: 35 minutes Patient Condition at Discharge: Stable Plan - Discharge Summary New Discharge Prescriptions: New Famotidine [Pepcid] 20 mg PO DAILY tab traMADol HCl [Ultram] 50 mg PO QID PRN #20 tab PRN Reason: MODERATE Pain/Discomfort Acetaminophen Tab [Tylenol] 650 mg PO Q4HR PRN tab PRN Reason: Fever and/ or MILD Pain Continue Levothyroxine Sodium [Synthroid] 175 mcg PO DAILY Amitriptyline HCl [Elavil] 10 mg PO BID Atorvastatin [Lipitor] 40 mg PO HS Metoprolol Succinate [Toprol XL] 25 mg PO HS Clotrimazole/Betameth Cream [Lotrisone] 1 applic TOPICAL BID PRN PRN Reason: Rash Clobetasol Propionate [Temovate 0.05% Cream] 1 applic TOPICAL DAILY PRN PRN Reason: Rash Desonide [Desonate] 1 applic TOPICAL DAILY PRN PRN Reason: Rash Artificial Tears-Hypromellose [Artificial Tear Drops] 1 drops BOTH EYES TID PRN PRN Reason: DRY EYES Multivitamins, Thera [Multivitamin (formulary)] 1 tab PO DAILY Fluticasone Nasal [place] [Flonase Nasal [place]] 2 spr EA NOSTRIL BID DULoxetine HCL [Cymbalta] 20 mg PO DAILY Furosemide [Lasix] 20 mg PO DAILY Montelukast [Singulair] 10 mg PO HS rOPINIRole HCL [Requip] 2 mg PO HS Trospium Chloride [Sanctura XR] 60 mg PO DAILY Pregabalin [Lyrica] 150 mg PO BID #10 capsule Discontinued Lisinopril 20 mg PO BID Discharge Medication List Amitriptyline HCl [Elavil] 10 mg PO BID 12/24/16 [History] Levothyroxine Sodium [Synthroid] 175 mcg PO DAILY 12/24/16 [History] Artificial Tears-Hypromellose [Artificial Tear Drops] 1 drops BOTH EYES TID PRN 08/17/17 [History] Atorvastatin [Lipitor] 40 mg PO HS 08/17/17 [History] Clobetasol Propionate [Temovate 0.05% Cream] 1 applic TOPICAL DAILY PRN [History] Clotrimazole/Betameth Cream [Lotrisone] 1 applic TOPICAL BID PRN 08/17/17 [ History] Desonide [Desonate] 1 applic TOPICAL DAILY PRN 08/17/17 [History] Fluticasone Nasal [place] [Flonase Nasal [place]] 2 spr EA NOSTRIL BID 08/17/17 [ History] Metoprolol Succinate [Toprol XL] 25 mg PO HS 08/17/17 [History] Multivitamins, Thera [Multivitamin (formulary)] 1 tab PO DAILY 08/17/17 [History ] DULoxetine HCL [Cymbalta] 20 mg PO DAILY 10/16/17 [History] Furosemide [Lasix] 20 mg PO DAILY 10/16/17 [History] Montelukast [Singulair] 10 mg PO HS 10/16/17 [History] Trospium Chloride [Sanctura XR] 60 mg PO DAILY 10/16/17 [History] rOPINIRole HCL [Requip] 2 mg PO HS 10/16/17 [History] Acetaminophen Tab [Tylenol] 650 mg PO Q4HR PRN tab 10/19/17 [Rx] Famotidine [Pepcid] 20 mg PO DAILY tab 10/19/17 [Rx] Pregabalin [Lyrica] 150 mg PO BID #10 capsule 10/19/17 [Rx] traMADol HCl [Ultram] 50 mg PO QID PRN #20 tab 10/19/17 [Rx] Follow up Appointment(s)/Referral(s): Shira Ortega MD [Primary Care Provider] - 1 Week (After discharge from inpatient rehab) Neftaly Barnett DO [Doctor of Osteopathic Medicine] - As Needed Abdullahi Simon MD [STAFF PHYSICIAN] - 3 Days Activity/Diet/Wound Care/Special Instructions: [facility]. PENDING TLSO Asha Conn and Blanca to supply asha [phone] Diet: Cardiac CBC, BMP in 3 days
[2017-10-19] MEDS: MONTELUKAST 10 MG TAB PO SCH (21:24)
[2017-10-19] MEDS: ATORVASTATIN 40 MG TAB PO SCH (21:24)
[2017-10-19] MEDS: METOPROLOL SUCCINATE (ER) 25 MG TAB.ER.24H PO SCH (21:24)
[2017-10-20] MEDS: LEVOTHYROXINE 100 MCG TAB PO SCH (05:56)
[2017-10-20] MEDS: LEVOTHYROXINE 75 MCG TAB PO SCH (05:57)
[2017-10-20 07:15] VITALS: BP 111/57; TEMP 98
[2017-10-20] MEDS: DULoxetine HCL 20 MG CAPSULE.DR PO SCH (09:27)
[2017-10-20] MEDS: AMITRIPTYLINE HCL 10 MG TAB PO SCH (09:27)
[2017-10-20] MEDS: ENOXAPARIN 40 MG/0.4 ML SYRINGE SQ SCH (09:28)
[2017-10-20] MEDS: FAMOTIDINE 20 MG TAB PO SCH (09:29)
[2017-10-20] MEDS: FLUTICASONE 50MCG/SPRAY NASAL 16GM EA NOSTRIL SCH (09:30)
[2017-10-20] MEDS: PREGABALIN 75 MG CAP PO SCH (09:31)
[2017-10-20] MEDS: TROSPIUM CHLORIDE 60 MG PO SCH (09:36)
[2017-10-20 09:58] VITALS: PULSE 66
[2017-10-20] MEDS: MULTIVITAMINS, THERA 1 EACH TAB PO SCH (12:58)
[2017-10-20] MEDS: HYDROcodone/APAP 5-325MG 1 EACH TAB PO PRN (15:43)
--- NOTE | 2017-10-20 15:53 | P.DS ---
Providers Date of admission: 10/16/17 18:09 Expected date of discharge: 10/20/17 Attending physician: Anibal Ferrari Consults: 10/17/17 10:25 Consult Physician Routine Consulting Provider: Abdullahi Simon Consult Reason/Comments: Inpatient rehab after discharge Do you want consulting provider notified?: Already Contacted Primary care physician: Virginia Mason Hospital Course: Date of admission: 10/16/17 18:09 Expected date of discharge: 10/20/17 Attending physician: Anibal Garcia Consults: 10/17/17 10:25 Consult Physician Routine Consulting Provider: Abdullahi Simon Consult Reason/Comments: Inpatient rehab after discharge Do you want consulting provider notified?: Already Contacted Primary care physician: Virginia Mason Hospital Course: Final Diagnoses: -Fall back pain: Secondary to T10 compression fracture. lumbar degenerative disc diseasePain management with tramadol Tylenol avoid narcotics considering her age. -Acute renal dysfunction: Improved with IV fluid hydration -Obstructive sleep apnea: Uses CPAP machine and also independent with chronic respiratory failure 3 L of oxygen at home. -hypertension hold off on lisinopril because of above-mentioned reasons -History of ovarian cancer in remission. Hospital course: This is an 82-year-old female admitted with compression fracture of the lower thoracic vertebrae. lumbosacral CT reported moderate compression fracture involving T10, degenerative changes throughout the lumbar spine. Evaluated by orthopedics. Conservative management recommended with TLSO brace as well as inpatient rehab. Patient is being discharged to [facility] rehab in a stable condition with guarded prognosis. Physical Exam:VSS, CV: Regular S1 and S2. LUNGS: Clear to auscultationABD: Soft , nontender, positive bowel sounds. NEURO: significant weakness- bilateral lower limbs with significant generalized weakness. The impression and plan of care has been dictated as directed. : I performed a history and examination of this patient, discussed the same with the dictator. I agree with the dictator's note ,documented as a scribe. Any additional findings or plans will be noted. time taken: 35 minutes Patient Condition at Discharge: Stable Plan - Discharge Summary New Discharge Prescriptions: New Famotidine [Pepcid] 20 mg PO DAILY tab traMADol HCl [Ultram] 50 mg PO QID PRN #20 tab PRN Reason: MODERATE Pain/Discomfort Acetaminophen Tab [Tylenol] 650 mg PO Q4HR PRN tab PRN Reason: Fever and/ or MILD Pain Continue Levothyroxine Sodium [Synthroid] 175 mcg PO DAILY Amitriptyline HCl [Elavil] 10 mg PO BID Atorvastatin [Lipitor] 40 mg PO HS Metoprolol Succinate [Toprol XL] 25 mg PO HS Clotrimazole/Betameth Cream [Lotrisone] 1 applic TOPICAL BID PRN PRN Reason: Rash Clobetasol Propionate [Temovate 0.05% Cream] 1 applic TOPICAL DAILY PRN PRN Reason: Rash Desonide [Desonate] 1 applic TOPICAL DAILY PRN PRN Reason: Rash Artificial Tears-Hypromellose [Artificial Tear Drops] 1 drops BOTH EYES TID PRN PRN Reason: DRY EYES Multivitamins, Thera [Multivitamin (formulary)] 1 tab PO DAILY Fluticasone Nasal [place] [Flonase Nasal [place]] 2 spr EA NOSTRIL BID DULoxetine HCL [Cymbalta] 20 mg PO DAILY Furosemide [Lasix] 20 mg PO DAILY Montelukast [Singulair] 10 mg PO HS rOPINIRole HCL [Requip] 2 mg PO HS Trospium Chloride [Sanctura XR] 60 mg PO DAILY Pregabalin [Lyrica] 150 mg PO BID #10 capsule Discontinued Lisinopril 20 mg PO BID Discharge Medication List Amitriptyline HCl [Elavil] 10 mg PO BID 12/24/16 [History] Levothyroxine Sodium [Synthroid] 175 mcg PO DAILY 12/24/16 [History] Artificial Tears-Hypromellose [Artificial Tear Drops] 1 drops BOTH EYES TID PRN 08/17/17 [History] Atorvastatin [Lipitor] 40 mg PO HS 08/17/17 [History] Clobetasol Propionate [Temovate 0.05% Cream] 1 applic TOPICAL DAILY PRN [History] Clotrimazole/Betameth Cream [Lotrisone] 1 applic TOPICAL BID PRN 08/17/17 [ History] Desonide [Desonate] 1 applic TOPICAL DAILY PRN 08/17/17 [History] Fluticasone Nasal [place] [Flonase Nasal [place]] 2 spr EA NOSTRIL BID 08/17/17 [ History] Metoprolol Succinate [Toprol XL] 25 mg PO HS 08/17/17 [History] Multivitamins, Thera [Multivitamin (formulary)] 1 tab PO DAILY 08/17/17 [History ] DULoxetine HCL [Cymbalta] 20 mg PO DAILY 10/16/17 [History] Furosemide [Lasix] 20 mg PO DAILY 10/16/17 [History] Montelukast [Singulair] 10 mg PO HS 10/16/17 [History] Trospium Chloride [Sanctura XR] 60 mg PO DAILY 10/16/17 [History] rOPINIRole HCL [Requip] 2 mg PO HS 10/16/17 [History] Acetaminophen Tab [Tylenol] 650 mg PO Q4HR PRN tab 10/19/17 [Rx] Famotidine [Pepcid] 20 mg PO DAILY tab 10/19/17 [Rx] Pregabalin [Lyrica] 150 mg PO BID #10 capsule 10/19/17 [Rx] traMADol HCl [Ultram] 50 mg PO QID PRN #20 tab 10/19/17 [Rx] Follow up Appointment(s)/Referral(s): Shira Ortega MD [Primary Care Provider] - 1 Week (After discharge from inpatient rehab) Neftaly Barnett DO [Doctor of Osteopathic Medicine] - As Needed Abdullahi Simon MD [STAFF PHYSICIAN] - 3 Days Activity/Diet/Wound Care/Special Instructions: [facility]. PENDING TLSO Asha Conn and Blanca to supply [employer] [phone] Diet: Cardiac CBC, BMP in 3 days Patient Condition at Discharge: Stable Plan - Discharge Summary New Discharge Prescriptions: New Famotidine [Pepcid] 20 mg PO DAILY tab traMADol HCl [Ultram] 50 mg PO QID PRN #20 tab PRN Reason: MODERATE Pain/Discomfort Acetaminophen Tab [Tylenol] 650 mg PO Q4HR PRN tab PRN Reason: Fever and/ or MILD Pain Continue Levothyroxine Sodium [Synthroid] 175 mcg PO DAILY Amitriptyline HCl [Elavil] 10 mg PO BID Atorvastatin [Lipitor] 40 mg PO HS Metoprolol Succinate [Toprol XL] 25 mg PO HS Clotrimazole/Betameth Cream [Lotrisone] 1 applic TOPICAL BID PRN PRN Reason: Rash Clobetasol Propionate [Temovate 0.05% Cream] 1 applic TOPICAL DAILY PRN PRN Reason: Rash Desonide [Desonate] 1 applic TOPICAL DAILY PRN PRN Reason: Rash Artificial Tears-Hypromellose [Artificial Tear Drops] 1 drops BOTH EYES TID PRN PRN Reason: DRY EYES Multivitamins, Thera [Multivitamin (formulary)] 1 tab PO DAILY Fluticasone Nasal [place] [Flonase Nasal [place]] 2 spr EA NOSTRIL BID DULoxetine HCL [Cymbalta] 20 mg PO DAILY Furosemide [Lasix] 20 mg PO DAILY Montelukast [Singulair] 10 mg PO HS rOPINIRole HCL [Requip] 2 mg PO HS Trospium Chloride [Sanctura XR] 60 mg PO DAILY Pregabalin [Lyrica] 150 mg PO BID #10 capsule Discontinued Lisinopril 20 mg PO BID Discharge Medication List Amitriptyline HCl [Elavil] 10 mg PO BID 12/24/16 [History] Levothyroxine Sodium [Synthroid] 175 mcg PO DAILY 12/24/16 [History] Artificial Tears-Hypromellose [Artificial Tear Drops] 1 drops BOTH EYES TID PRN 08/17/17 [History] Atorvastatin [Lipitor] 40 mg PO HS 08/17/17 [History] Clobetasol Propionate [Temovate 0.05% Cream] 1 applic TOPICAL DAILY PRN [History] Clotrimazole/Betameth Cream [Lotrisone] 1 applic TOPICAL BID PRN 08/17/17 [ History] Desonide [Desonate] 1 applic TOPICAL DAILY PRN 08/17/17 [History] Fluticasone Nasal [place] [Flonase Nasal [place]] 2 spr EA NOSTRIL BID 08/17/17 [ History] Metoprolol Succinate [Toprol XL] 25 mg PO HS 08/17/17 [History] Multivitamins, Thera [Multivitamin (formulary)] 1 tab PO DAILY 08/17/17 [History ] DULoxetine HCL [Cymbalta] 20 mg PO DAILY 10/16/17 [History] Furosemide [Lasix] 20 mg PO DAILY 10/16/17 [History] Montelukast [Singulair] 10 mg PO HS 10/16/17 [History] Trospium Chloride [Sanctura XR] 60 mg PO DAILY 10/16/17 [History] rOPINIRole HCL [Requip] 2 mg PO HS 10/16/17 [History] Acetaminophen Tab [Tylenol] 650 mg PO Q4HR PRN tab 10/19/17 [Rx] Famotidine [Pepcid] 20 mg PO DAILY tab 10/19/17 [Rx] Pregabalin [Lyrica] 150 mg PO BID #10 capsule 10/19/17 [Rx] traMADol HCl [Ultram] 50 mg PO QID PRN #20 tab 10/19/17 [Rx] Follow up Appointment(s)/Referral(s): Shira Ortega MD [Primary Care Provider] - 1 Week (After discharge from inpatient rehab) Neftaly Barnett DO [Doctor of Osteopathic Medicine] - As Needed Abdullahi Simon MD [STAFF PHYSICIAN] - 3 Days Activity/Diet/Wound Care/Special Instructions: TLSO Brace - Ida hutchins brace [phone] Diet: Cardiac CBC, BMP in 3 days Activity as tolerated with TLSO brace on Lotions per patient's home use schedule
== END 2017-10-20 15:45 ==
LOC: EC 15:20 → INTOOBSV 18:09 → 5MS5E 18:09
PROVIDERS: ADMIT Hospitalist; ATTEND Hospitalist
DX: M48.54XA Collapsed vertebra, not elsewhere classified, thoracic region, initial encounter for fracture (principal); N28.9 Disorder of kidney and ureter, unspecified; T50.1X5A Adverse effect of loop [high-ceiling] diuretics, initial encounter; T46.4X5A Adverse effect of angiotensin-converting-enzyme inhibitors, initial encounter; I10 Essential (primary) hypertension; G47.33 Obstructive sleep apnea (adult) (pediatric); M51.36 Other intervertebral disc degeneration, lumbar region; J96.10 Chronic respiratory failure, unspecified whether with hypoxia or hypercapnia; W19.XXXA Unspecified fall, initial encounter; E66.01 Morbid (severe) obesity due to excess calories; Z68.42 Body mass index [BMI] 45.0-49.9, adult; G89.29 Other chronic pain; I69.393 Ataxia following cerebral infarction; R53.1 Weakness; Z99.81 Dependence on supplemental oxygen; Z99.89 Dependence on other enabling machines and devices; Y92.009 Unspecified place in unspecified non-institutional (private) residence as the place of occurrence of the external cause; Z79.899 Other long term (current) drug therapy; Z79.51 Long term (current) use of inhaled steroids; Z88.0 Allergy status to penicillin; Z87.01 Personal history of pneumonia (recurrent); Z86.011 Personal history of benign neoplasm of the brain; Z96.653 Presence of artificial knee joint, bilateral; Z85.43 Personal history of malignant neoplasm of ovary; Z91.81 History of falling; Z80.9 Family history of malignant neoplasm, unspecified; Z82.49 Family history of ischemic heart disease and other diseases of the circulatory system; Z82.0 Family history of epilepsy and other diseases of the nervous system
CPT/HCPCS: 96361 ×6; 96374 ×2; 99285 ×2; 96376; 96372 ×4; 36415; 93005; 97116; 97161; 97166; 85379; 80053; 80048; 82550; 82553; 83735; 84100; 84484; 85025; 85027; 85610; 85730; 71046; 93970; 72131; 70450; 72192; G0378 ×5; J1650 ×4; J2270 ×2

== ENCOUNTER → 2017-11-12 | Day surgery (SDC) | payer MEDICARE ==
[~2017-11-12] MED LIST: CLINDAMYCIN 900 MG in DEXTROSE 5% IN WATER 50 ML IVPB ONE; LIDOCAINE 2% INJ 20 MG/ML SQ ONE; MIDAZOLAM 2 MG/2 ML VIAL IV ONE; MIDAZOLAM 2 MG/2 ML VIAL ONE; SODIUM CHLORIDE 0.9% 1,000 ML IV SCH
[2017-11-12 15:21] VITALS: RESP 16; TEMP 98.6
[2017-11-12 16:21] VITALS: BP 110/63; PULSE 71
--- NOTE | 2017-11-12 18:56 | P.PCN ---
Preoperative Diagnosis: Loop monitor implant Primary physicians: Restorative Care Technician: Dr. Olivarez Indication: Cryptogenic stroke, evaluate for silent atrial fibrillation Patient was brought to the EP lab in a fasting state. Written informed consent was obtained prior to the procedure. The left pectoral area was prepped and draped per protocol. Intravenous antibiotic was administered preoperatively. A subcutaneous Loop monitor was implanted successfully and the wound was closed per protocol. The device was programmed to detect significant audrey- arrhythmic and tachy-arrhythmic events, per protocol. Device and programming details: Programmed to detect bradycardia and atrial fibrillation Patient underwent EP procedure under conscious sedation/moderate sedation, monitoring of the level of consciousness and physiologic parameters including but not limited to vital signs and oxygenation. Patient tolerated the procedure well without any acute complications. Start time: 1530 Stop time: 1340
== END | disposition home or self-care (01) ==
LOC: CATHEP 14:42
PROVIDERS: ATTEND Internal Medicine Clinical Cardiac Electrophysiology
DX: I67.82 Cerebral ischemia (principal); I45.2 Bifascicular block; I49.5 Sick sinus syndrome; I11.0 Hypertensive heart disease with heart failure; I50.30 Unspecified diastolic (congestive) heart failure; I44.0 Atrioventricular block, first degree; I35.0 Nonrheumatic aortic (valve) stenosis; I45.89 Other specified conduction disorders; I25.10 Atherosclerotic heart disease of native coronary artery without angina pectoris; E78.5 Hyperlipidemia, unspecified; G47.33 Obstructive sleep apnea (adult) (pediatric); Z99.89 Dependence on other enabling machines and devices; Z82.49 Family history of ischemic heart disease and other diseases of the circulatory system; Z79.890 Hormone replacement therapy; Z79.899 Other long term (current) drug therapy; Z88.0 Allergy status to penicillin
CPT/HCPCS: 33282; C1764; J2001; J2250

== ENCOUNTER 2018-03-15 13:40 | Emergency (ER) | payer MEDICARE ==
[2018-03-15 14:44] VITALS: TEMP 98.2
[2018-03-15 16:05] LABS: Anisocytosis Slight; Basophils % (A) 0 %; Eosinophils # (A) 0.2 k/uL (0-0.7); Eosinophils % (A) 2 %; HCT 47.5 % (34.0-46.0); HGB 15.4 gm/dL (11.4-16.0); Lymphocytes # (A) 1.2 k/uL (1.0-4.8); Lymphocytes % (A) 20 %; MCH 28.9 pg (25.0-35.0); MCHC 32.4 g/dL (31.0-37.0); Mean Platelet Volume 7.7; Monocytes # (A) 0.4 k/uL (0-1.0); Monocytes % (A) 6 %; Neutrophils # (A) 4.4 k/uL (1.3-7.7); Neutrophils % (A) 71 %; Platelet Count 185 k/uL (150-450); RBC 5.33 m/uL (3.80-5.40); RDW 17.7 % (11.5-15.5); WBC 6.2 k/uL (3.8-10.6)
[2018-03-15 16:21] LABS: Albumin 4.5 g/dL (3.5-5.0); Calcium 10.3 mg/dL (8.4-10.2); Total Bilirubin 0.7 mg/dL (0.2-1.3); Total Protein 7.5 g/dL (6.3-8.2)
[2018-03-15] MEDS ORDERED: SODIUM CHLORIDE 0.9% 1,000 ML IV STA (16:30)
--- NOTE | 2018-03-15 16:39 | ED ---
Weakness HPI <Aj Thapa - Last Filed: 03/15/18 19:12> - General Source: patient, RN notes reviewed, old records reviewed Mode of arrival: wheelchair Limitations: no limitations <Lyly Cobian - Last Filed: 03/15/18 19:29> - General Chief complaint: Weakness Stated complaint: Weakness Time Seen by Provider: 03/15/18 16:13 - History of Present Illness Initial comments: This is an 83-year-old female presents emergency department today with chief complaint of weakness, increased nausea and cold sweats for the past month. Patient reports that she's also had a productive cough. She complains of post nasal drainage. She's been treated with antibiotics and nasal spray. Patient reports that she's had chills. She reports her cough has been somewhat productive. She denies any chest pain or shortness of breath at this time. She denies any specific abdominal pain. She does typically after oxygen. ( Lyly Cobian) - Related Data Home Medications Medication Instructions Recorded Confirmed Amitriptyline HCl [Elavil] 20 mg PO HS 12/24/16 03/15/18 Levothyroxine Sodium [Synthroid] 175 mcg PO DAILY 12/24/16 03/15/18 Atorvastatin [Lipitor] 40 mg PO HS 08/17/17 03/15/18 DULoxetine HCL [Cymbalta] 40 mg PO DAILY 10/16/17 03/15/18 Furosemide [Lasix] 40 mg PO DAILY 10/16/17 03/15/18 Montelukast [Singulair] 10 mg PO HS 10/16/17 03/15/18 Trospium Chloride [Sanctura XR] 60 mg PO DAILY 10/16/17 03/15/18 rOPINIRole HCL [Requip] 2 mg PO HS 10/16/17 03/15/18 Potassium Chloride [K-Tab ER] 10 meq PO DAILY 11/12/17 03/15/18 Famotidine [Pepcid] 20 mg PO DAILY 03/15/18 03/15/18 HYDROcodone/APAP 7.5-325MG [[place] 1 tab PO DAILY PRN 03/15/18 03/15/18 7.5-325] Ipratropium-Albuterol Nebulize 3 ml INHALATION RT-BID 03/15/18 03/15/18 [Duoneb 0.5 mg-3 mg/3 ml Soln] Nitroglycerin Sl Tabs [Nitrostat] 0.4 mg PO Q5M PRN 03/15/18 03/15/18 Triamterene-Hctz 37.5-25Mg 1 cap PO DAILY 03/15/18 03/15/18 [Dyazide 37.5-25 Capsule] Previous Rx's Medication Instructions Recorded Pregabalin [Lyrica] 150 mg PO BID #10 capsule 10/19/17 traMADol HCl [Ultram] 50 mg PO QID PRN #20 tab 10/19/17 Ondansetron Odt [Zofran Odt] 4 mg PO Q8HR PRN #12 tab 03/15/18 Allergies Allergy/AdvReac Type Severity Reaction Status Date / Time Penicillins Allergy Swelling/it Verified 03/15/18 14:44 lolis Review of Systems ROS Other: All systems not noted in ROS Statement are negative. <Aj Thapa - Last Filed: 03/15/18 19:12> ROS Other: All systems not noted in ROS Statement are negative. <Lyly Cobian - Last Filed: 03/15/18 19:29> ROS Statement: Those systems with pertinent positive or pertinent negative responses have been documented in the HPI. Past Medical History Past Medical History: Cancer, CVA/TIA, Hypertension, Pneumonia Additional Past Medical History / Comment(s): chronic back pain, ovarian cancer History of Any Multi-Drug Resistant Organisms: None Reported Past Surgical History: Back Surgery, Hernia Repair, Hysterectomy Additional Past Surgical History / Comment(s): jero knee,brain tumor removed, exp lap Past Anesthesia/Blood Transfusion Reactions: No Reported Reaction Past Psychological History: Depression Smoking Status: Never smoker Past Alcohol Use History: Rare Past Drug Use History: None Reported - Past Family History Father Family Medical History: Myocardial Infarction ([place]) Mother Additional Family Medical History / Comment(s): parkinson's Sister(s) Family Medical History: Cancer <Lyly Cobian - Last Filed: 03/15/18 19:29> General Exam <Aj Thapa - Last Filed: 03/15/18 19:12> Limitations: no limitations General appearance: alert, in no apparent distress Head exam: Present: atraumatic, normocephalic, normal inspection Eye exam: Present: normal appearance, PERRL, EOMI. Absent: scleral icterus, conjunctival injection, periorbital swelling ENT exam: Present: normal exam, mucous membranes moist Neck exam: Present: normal inspection. Absent: tenderness, meningismus, lymphadenopathy Respiratory exam: Present: normal lung sounds bilaterally. Absent: respiratory distress, wheezes, rales, rhonchi, stridor Cardiovascular Exam: Present: regular rate, normal rhythm, normal heart sounds. Absent: systolic murmur, diastolic murmur, rubs, gallop, clicks GI/Abdominal exam: Present: soft, normal bowel sounds. Absent: distended, tenderness, guarding, rebound, rigid Extremities exam: Present: normal inspection, full ROM, normal capillary refill. Absent: tenderness, pedal edema, joint swelling, calf tenderness Back exam: Present: normal inspection Neurological exam: Present: alert, oriented X3, CN II-XII intact Psychiatric exam: Present: normal affect, normal mood Skin exam: Present: warm, dry, intact, normal color. Absent: rash <Lyly Cobian - Last Filed: 03/15/18 19:29> - General Exam Comments Initial Comments: Pleasant well-appearing 9-year-old female. No acute distress. (Lyly Cobian) Course <Aj Thapa - Last Filed: 03/15/18 19:12> <Lyly Cobian - Last Filed: 03/15/18 19:29> Vital Signs 03/15/18 03/15/18 14:41 18:54 Temperature 98.2 F Pulse Rate 76 64 Respiratory 20 16 Rate Blood Pressure 105/68 115/66 O2 Sat by Pulse 93 L 94 L Oximetry - Reevaluation(s) Reevaluation #1: 03/15/18 19:12 PA supervision: I personally saw and examined the patient. I reviewed and agree with the PA findings including all diagnostic interpretations treatment plans is written unless otherwise stated. (Aj Thapa) EKG Findings - EKG Comments: EKG Findings:: EKG shows sinus rhythm with first-degree AV block. Left axis deviation. Nonspecific intraventricular block. Inferior infarct age indeterminate. Anterolateral infarct age undetermined. Abnormal EKG. Ventricular rate of 73 bpm. Pulse to 60 ms. QRS ration 144 ms. QT QTc is 450/ 4 and 95 ms. <Lyly Cobian - Last Filed: 03/15/18 19:29> Medical Decision Making - Lab Data Result diagrams: 03/15/18 15:50 03/15/18 15:50 <ElierAj - Last Filed: 03/15/18 19:12> - Lab Data Result diagrams: 03/15/18 15:50 03/15/18 15:50 - Radiology Data Radiology results: report reviewed <Lyly Cobian - Last Filed: 03/15/18 19:29> - Medical Decision Making Page 3-year-old female complains of postnasal drip, nausea and feelings of weakness for the past month. She is here PCP. Patient has no neurological deficits. Lungs are clear. No abdominal tenderness. She otherwise appears well. All her lab work was obtained and read to be unremarkable. She was given fluids. She mainly complains of nausea. Given Zofran has some improvement of her symptoms. This time I discussed with normal lab work and otherwise Patient is able to ambulate without major difficulty Patient can follow-up with PcP. Again patient's symptoms have been going on for the past month and vital signs are stable. Patient agrees treatment plan will comply. (Lyly Cobian) - Lab Data Lab Results 03/15/18 03/15/18 03/15/18 Range/Units 15:50 15:50 15:50 WBC 6.2 (3.8-10.6) k/uL RBC 5.33 (3.80-5.40) m/uL Hgb 15.4 (11.4-16.0) gm/dL Hct 47.5 H (34.0-46.0) % MCV 89.0 (80.0-100.0) fL MCH 28.9 (25.0-35.0) pg MCHC 32.4 (31.0-37.0) g/dL RDW 17.7 H (11.5-15.5) % Plt Count 185 (150-450) k/uL Neutrophils % 71 % Lymphocytes % 20 % Monocytes % 6 % Eosinophils % 2 % Basophils % 0 % Neutrophils # 4.4 (1.3-7.7) k/uL Lymphocytes # 1.2 (1.0-4.8) k/uL Monocytes # 0.4 (0-1.0) k/uL Eosinophils # 0.2 (0-0.7) k/uL Basophils # 0.0 (0-0.2) k/uL Anisocytosis Slight PT (9.0-12.0) sec INR (<1.2) APTT (22.0-30.0) sec Sodium 139 (137-145) mmol/L Potassium 4.0 (3.5-5.1) mmol/L Chloride 98 (98-107) mmol/L Carbon Dioxide 31 H (22-30) mmol/L Anion Gap 10 mmol/L BUN 18 H (7-17) mg/dL Creatinine 1.01 (0.52-1.04) mg/dL Est GFR (CKD-EPI)AfAm 60 (>60 ml/min/1.73 sqM) Est GFR (CKD-EPI)NonAf 52 (>60 ml/min/1.73 sqM) Glucose 95 (74-99) mg/dL Plasma Lactic Acid Dandre (0.7-2.0) mmol/L Calcium 10.3 H (8.4-10.2) mg/dL Phosphorus (2.5-4.5) mg/dL Magnesium (1.6-2.3) mg/dL Total Bilirubin 0.7 (0.2-1.3) mg/dL AST 28 (14-36) U/L ALT 24 (9-52) U/L Alkaline Phosphatase 112 (38-126) U/L Total Creatine Kinase 100 (30-135) U/L CK-MB (CK-2) 1.9 (0.0-2.4) ng/mL CK-MB (CK-2) Rel Index 1.9 Troponin I <0.012 (0.000-0.034) ng/mL NT-Pro-B Natriuret Pep pg/mL Total Protein 7.5 (6.3-8.2) g/dL Albumin 4.5 (3.5-5.0) g/dL Urine Color Urine Appearance (Clear) Urine pH (5.0-8.0) Ur Specific [place] (1.001-1.035) Urine Protein (Negative) Urine Glucose (UA) (Negative) Urine Ketones (Negative) Urine Blood (Negative) Urine Nitrite (Negative) Urine Bilirubin (Negative) Urine Urobilinogen (<2.0) mg/dL Ur Leukocyte Esterase (Negative) Urine RBC (0-5) /hpf Urine WBC (0-5) /hpf Urine Bacteria (None) /hpf Hyaline Casts (0-2) /lpf Urine Mucus (None) /hpf 03/15/18 03/15/18 03/15/18 Range/Units 15:50 15:50 15:50 WBC (3.8-10.6) k/uL RBC (3.80-5.40) m/uL Hgb (11.4-16.0) gm/dL Hct (34.0-46.0) % MCV (80.0-100.0) fL MCH (25.0-35.0) pg MCHC (31.0-37.0) g/dL RDW (11.5-15.5) % Plt Count (150-450) k/uL Neutrophils % % Lymphocytes % % Monocytes % % Eosinophils % % Basophils % % Neutrophils # (1.3-7.7) k/uL Lymphocytes # (1.0-4.8) k/uL Monocytes # (0-1.0) k/uL Eosinophils # (0-0.7) k/uL Basophils # (0-0.2) k/uL Anisocytosis PT 10.2 (9.0-12.0) sec INR 1.0 (<1.2) APTT 25.7 (22.0-30.0) sec Sodium (137-145) mmol/L Potassium (3.5-5.1) mmol/L Chloride (98-107) mmol/L Carbon Dioxide (22-30) mmol/L Anion Gap mmol/L BUN (7-17) mg/dL Creatinine (0.52-1.04) mg/dL Est GFR (CKD-EPI)AfAm (>60 ml/min/1.73 sqM) Est GFR (CKD-EPI)NonAf (>60 ml/min/1.73 sqM) Glucose (74-99) mg/dL Plasma Lactic Acid Dandre (0.7-2.0) mmol/L Calcium (8.4-10.2) mg/dL Phosphorus 3.3 (2.5-4.5) mg/dL Magnesium 2.2 (1.6-2.3) mg/dL Total Bilirubin (0.2-1.3) mg/dL AST (14-36) U/L ALT (9-52) U/L Alkaline Phosphatase (38-126) U/L Total Creatine Kinase (30-135) U/L CK-MB (CK-2) (0.0-2.4) ng/mL CK-MB (CK-2) Rel Index Troponin I (0.000-0.034) ng/mL NT-Pro-B Natriuret Pep 345 pg/mL Total Protein (6.3-8.2) g/dL Albumin (3.5-5.0) g/dL Urine Color Urine Appearance (Clear) Urine pH (5.0-8.0) Ur Specific [place] (1.001-1.035) Urine Protein (Negative) Urine Glucose (UA) (Negative) Urine Ketones (Negative) Urine Blood (Negative) Urine Nitrite (Negative) Urine Bilirubin (Negative) Urine Urobilinogen (<2.0) mg/dL Ur Leukocyte Esterase (Negative) Urine RBC (0-5) /hpf Urine WBC (0-5) /hpf Urine Bacteria (None) /hpf Hyaline Casts (0-2) /lpf Urine Mucus (None) /hpf 03/15/18 03/15/18 Range/Units 17:27 18:00 WBC (3.8-10.6) k/uL RBC (3.80-5.40) m/uL Hgb (11.4-16.0) gm/dL Hct (34.0-46.0) % MCV (80.0-100.0) fL MCH (25.0-35.0) pg MCHC (31.0-37.0) g/dL RDW (11.5-15.5) % Plt Count (150-450) k/uL Neutrophils % % Lymphocytes % % Monocytes % % Eosinophils % % Basophils % % Neutrophils # (1.3-7.7) k/uL Lymphocytes # (1.0-4.8) k/uL Monocytes # (0-1.0) k/uL Eosinophils # (0-0.7) k/uL Basophils # (0-0.2) k/uL Anisocytosis PT (9.0-12.0) sec INR (<1.2) APTT (22.0-30.0) sec Sodium (137-145) mmol/L Potassium (3.5-5.1) mmol/L Chloride (98-107) mmol/L Carbon Dioxide (22-30) mmol/L Anion Gap mmol/L BUN (7-17) mg/dL Creatinine (0.52-1.04) mg/dL Est GFR (CKD-EPI)AfAm (>60 ml/min/1.73 sqM) Est GFR (CKD-EPI)NonAf (>60 ml/min/1.73 sqM) Glucose (74-99) mg/dL Plasma Lactic Acid Dandre 0.9 (0.7-2.0) mmol/L Calcium (8.4-10.2) mg/dL Phosphorus (2.5-4.5) mg/dL Magnesium (1.6-2.3) mg/dL Total Bilirubin (0.2-1.3) mg/dL AST (14-36) U/L ALT (9-52) U/L Alkaline Phosphatase (38-126) U/L Total Creatine Kinase (30-135) U/L CK-MB (CK-2) (0.0-2.4) ng/mL CK-MB (CK-2) Rel Index Troponin I (0.000-0.034) ng/mL NT-Pro-B Natriuret Pep pg/mL Total Protein (6.3-8.2) g/dL Albumin (3.5-5.0) g/dL Urine Color Yellow Urine Appearance Clear (Clear) Urine pH 7.0 (5.0-8.0) Ur Specific [place] 1.016 (1.001-1.035) Urine Protein Negative (Negative) Urine Glucose (UA) Negative (Negative) Urine Ketones Negative (Negative) Urine Blood Negative (Negative) Urine Nitrite Negative (Negative) Urine Bilirubin Negative (Negative) Urine Urobilinogen <2.0 (<2.0) mg/dL Ur Leukocyte Esterase Small H (Negative) Urine RBC <1 (0-5) /hpf Urine WBC 8 H (0-5) /hpf Urine Bacteria Rare H (None) /hpf Hyaline Casts 1 (0-2) /lpf Urine Mucus Rare H (None) /hpf - Radiology Data Some atelectasis in the right minor fissure that is new compared old exam. No heart failure. (Lyly Cobian) Disposition <Aj Thapa - Last Filed: 03/15/18 19:12> Is patient prescribed a controlled substance at d/c from ED?: No Time of Disposition: 19:06 <Lyly Cobian - Last Filed: 03/15/18 19:29> Clinical Impression: Nausea Disposition: HOME SELF-CARE Condition: Good Instructions: Acute Nausea and Vomiting (ED) Additional Instructions: Patient advised to follow-up with primary care provider. Return to emergency department if any alarming signs or symptoms occur. Prescriptions: Ondansetron Odt [Zofran Odt] 4 mg PO Q8HR PRN #12 tab PRN Reason: Nausea Referrals: Shira Ortega MD [Primary Care Provider] - 1-2 days
[2018-03-15 17:17] LABS: Magnesium 2.2 mg/dL (1.6-2.3); Phosphorus 3.3 mg/dL (2.5-4.5)
[2018-03-15 17:20] LABS: Partial Thromboplastin Time 25.7 sec (22.0-30.0); Prothrombin Time 10.2 sec (9.0-12.0)
[2018-03-15 17:21] LABS: Creatine Kinase 100 U/L (30-135)
[2018-03-15 17:34] LABS: Creatine Kinase MB 1.9 ng/mL (0.0-2.4); Troponin I <0.012 ng/mL (0.000-0.034)
[2018-03-15 17:40] LABS: Appearance,Urine Clear (Clear); Bacteria,Urine Rare /hpf; Bilirubin,Urine Negative (Negative); Blood,Urine Negative (Negative); Color,Urine Yellow; Glucose,Urine (UA) Negative (Negative); Hyaline Casts,Urine 1 /lpf (0-2); Ketones,Urine Negative (Negative); Leukocyte Esterase,Urine Small (Negative); Mucus,Urine Rare /hpf; Nitrite,Urine Negative (Negative); Protein,Urine Negative (Negative); RBC,Urine <1 /hpf (0-5); Specific Gravity,Urine 1.016 (1.001-1.035); Urobilinogen,Urine <2.0 mg/dL (<2.0); WBC,Urine 8 /hpf (0-5)
--- NOTE | 2018-03-15 18:27 | XR ---
EXAMINATION TYPE: XR chest 2V DATE OF EXAM: 03/15/2018 COMPARISON: 10/16/2017 HISTORY: Nausea. Lightheaded. TECHNIQUE: Frontal and lateral views of the chest are obtained. FINDINGS: There is no heart failure nor confluent pneumonic infiltrate. There is some linear density in the right minor fissure. There is no pleural effusion. There is neurostimulator in the thoracic s pine. IMPRESSION: There is some atelectasis along the right minor fissure that is new compared to old exam . No heart failure.
[2018-03-15 18:54] VITALS: PULSE 64; RESP 16
[2018-03-15 18:55] VITALS: BP 115/66
[2018-03-15] MEDS ORDERED: ONDANSETRON 4 MG ODT STARTER PACK 2 TAB BTL PO STA (19:05)
== END 2018-03-15 19:26 | disposition home or self-care (01) ==
LOC: EC 13:40
DX: R11.0 Nausea (principal); R05 Cough; I10 Essential (primary) hypertension; F32.9 Major depressive disorder, single episode, unspecified; Z86.73 Personal history of transient ischemic attack (TIA), and cerebral infarction without residual deficits; Z85.43 Personal history of malignant neoplasm of ovary; Z79.899 Other long term (current) drug therapy; Z88.0 Allergy status to penicillin
CPT/HCPCS: 36415; 93005; 83880; 80053; 82550; 82553; 83605; 83735; 84100; 84484; 85025; 85610; 85730; 81001; 71046; 99285; 96360; S0119

== ENCOUNTER → 2018-07-07 | Outpatient (CLI) | payer MEDICARE ==
--- NOTE | 2018-07-07 16:10 | BD ---
EXAMINATION TYPE: Axial Bone Density DATE OF EXAM: 07/07/2018 COMPARISON: NONE CLINICAL HISTORY: Height: 62 IN Weight: 243 LBS FRAX RISK QUESTIONS: Family History (Parent hip fracture): YES MOTHER History of Fracture in Adulthood: YES LEFT SHOULDER AGE 71 RISK FACTORS HISTORY OF: Active: NOT VERY Diet low in dairy products/other sources of calcium: YES Postmenopausal woman: AGE 63 Take estrogen and/or progesterone medications: NOT NOW How long: AGE 46 - 63 Lost more than 2 inches in height since high school: YES 4 " Frequent falls: BALANCE ISSUES MEDICATIONS: Thyroid Medications: YES Which medication: Synthroid How Lon + YEARS Additional Medications: AMITRIPTYLINE,ATORVASTATIN, DULOXETINE, FUROSEMIDE, HYDROCODONE, LYRICA, HAZEL ELUKAST, ROPINROLE, SYNTHROID, TRAMADOL, TROSPIUM, Additional History: OVARIAN CANCER WITH CHEMO EXAM MEASUREMENTS: Bone mineral densitometry was performed using the [employer] System. PT HAD L-SPINE SURGERIES IN 1982 AND 2006 Bone mineral density about the R hip (g/cm2): 0.634 Bone mineral density about the L hip (g/cm2): 0.739 T Score values are as follows: -----R Neck: -2.9 -----L Neck: -2.2 -----R Total: -2.9 -----L Total: -1.8 Bone mineral density BASELINE Bone mineral density about the L Wrist (g/cm2): 0.475 T Score values are as follows: -----Dist. R+U: -2.6 -----Prox. R+U: -2.7 -----Radius total: -3.3 Bone mineral density BASELINE IMPRESSION: Osteoporosis (T Score less than -2.5). There is increased fracture risk and therapy is usually indicated based on age. Re-Screen 1-2 years. NOTE: T-SCORE=SD OF THE YOUNG ADULT MEAN.
== END | disposition home or self-care (01) ==
LOC: RADBDWWP 14:42
PROVIDERS: ATTEND Family Medicine
DX: T14.8XXS Other injury of unspecified body region, sequela (principal); M81.0 Age-related osteoporosis without current pathological fracture
CPT/HCPCS: 77080

== ENCOUNTER → 2018-08-18 | Outpatient (CLI) | payer MEDICARE ==
--- NOTE | 2018-08-19 07:34 | CT ---
EXAMINATION TYPE: CT brain wo con DATE OF EXAM: 08/18/2018 COMPARISON: 10/16/2017 INDICATION: Abnormal involuntary movement and spasms. DLP: 1150 mGycm, Automated exposure control for dose reduction was used. CONTRAST: None CT of the brain is performed utilizing 3 mm thick sections through the posterior fossa and 3 mm thick sections through the remaining calvarium. Study is performed within 24 hours of arrival to the hosp ital. No abnormal hyperdensity is present to suggest an acute intracranial hemorrhage. No mass lesion is evident. No acute infarcts are evident. Ventricles and sulci are appropriate for the patient age. Paranasal sinuses and mastoid air cells within the [id number] are clear. There is a prior left occipital craniotomy. Some encephalomalacia of the inferior lateral cerebellum may be present. IMPRESSIONS: 1. Postsurgical changes. No significant interval changes evident. 2. No acute intracranial process.
== END | disposition home or self-care (01) ==
LOC: RADCTMAIN 16:42
PROVIDERS: ATTEND Psychiatry & Neurology Neurology
DX: R25.9 Unspecified abnormal involuntary movements (principal); Z98.890 Other specified postprocedural states; Z88.0 Allergy status to penicillin
CPT/HCPCS: 70450

== ENCOUNTER → 2018-08-19 | Outpatient (CLI) | payer MEDICARE ==
--- NOTE | 2018-08-20 08:45 | NM ---
EXAMINATION TYPE: NM DatScan Brain SPECT DATE OF EXAM: 08/19/2018 COMPARISON: NONE HISTORY: Abnormal involuntary movements, tremor, forgetfulness, family history Parkinson's TECHNIQUE: 10 drops of Lugol's solution was administered 1 hour prior to injection as a thyroid bloc magalys agent. After the administration of 4.49 mCi I-123 Ioflupane DaTscan. Images obtained 3 hours p ost injection. SPECT images of the brain were acquired with axial and coronal reconstructions. FINDINGS: Normal comma-shaped uptake noted at the striata. Patient is well-positioned. IMPRESSION: Normal PREETHI scan
== END ==
LOC: RADNMMAIN 10:18
PROVIDERS: ATTEND Psychiatry & Neurology Neurology
DX: G25.0 Essential tremor (principal)
CPT/HCPCS: 78607; A9584

== ENCOUNTER → 2018-08-31 | Outpatient (CLI) | payer MEDICARE ==
--- NOTE | 2018-09-06 08:59 | MM ---
Reason for exam: screening (asymptomatic). Last mammogram was performed 4 years and 4 months ago. History: Patient is postmenopausal and has history of ovarian cancer at age 53. Family history of endometrial cancer in sister. Physical Findings: A clinical breast exam by your physician is recommended on an annual basis and results should be correlated with mammographic findings. MG 3D Screening Mammo W/Cad Bilateral CC and MLO view(s) were taken. Prior study comparison: April 17, 2014, mammogram, performed at [facility]. February 07, 2013, mammogram, performed at [facility]. There are scattered fibroglandular densities. Finding #1: There is a 5-6 mm circumscribed round mass in the lower inner quadrant, posterior middle position of the left breast. Finding #2: There are typically benign round, linear calcifications in both breasts. New finding since April 17, 2014 and February 07, 2013. ASSESSMENT: Incomplete: need additional imaging evaluation, BI-RAD 0 RECOMMENDATION: Ultrasound of the left breast. [facility] will attempt to contact patient to return for ultrasound.
== END | disposition home or self-care (01) ==
LOC: RADMAMWWP 14:47
PROVIDERS: ATTEND Family Medicine
DX: Z12.31 Encounter for screening mammogram for malignant neoplasm of breast (principal)
CPT/HCPCS: 77063; 77067

== ENCOUNTER → 2018-09-30 | Outpatient (CLI) | payer MEDICARE ==
--- NOTE | 2018-09-30 10:42 | USB ---
Reason for exam: additional evaluation requested from abnormal screening. History: Patient is postmenopausal and has history of ovarian cancer at age 53. Family history of endometrial cancer in sister. Physical Findings: Nurse did not find any significant physical abnormalities on exam. US Breast Workup Limited LT Left limited breast ultrasound including focal area of concern, retroareolar and axilla demonstrates a 0.5 x 0.5 x 0.2cm oval, solid, hyperechoic lesion at 10 o'clock and a 0.4 x 0.3 x 0.2cm oval, solid, hyperechoic lesion at 10 o'clock. Appears as lipomas. Precautionary 6 month follow up as new on mammography. These results were verbally communicated with the patient and result sheet given to the patient on 09/30/18. ASSESSMENT: Probably benign, BI-RAD 3 RECOMMENDATION: Ultrasound of the left breast in 6 months.
== END | disposition home or self-care (01) ==
LOC: RADUSWWP 09:16
PROVIDERS: ATTEND Family Medicine
DX: R92.8 Other abnormal and inconclusive findings on diagnostic imaging of breast (principal)

== ENCOUNTER → 2018-12-17 | Outpatient (CLI) | payer MEDICARE ==
[2018-12-17 23:45] LABS: Calcium 9.8 mg/dL (8.7-10.3); Potassium 3.9 mmol/L (3.5-5.5)
== END | disposition home or self-care (01) ==
LOC: LABWHC1 15:35
PROVIDERS: ATTEND Internal Medicine Clinical Cardiac Electrophysiology
DX: I10 Essential (primary) hypertension (principal); I48.92 Unspecified atrial flutter
CPT/HCPCS: 36415; 80048; 84443

== ENCOUNTER → 2019-10-07 | Outpatient (CLI) | payer MEDICARE ==
--- NOTE | 2019-10-07 15:24 | CT ---
EXAMINATION TYPE: CT cervical spine wo con, CT lumbar spine wo con DATE OF EXAM: 10/07/2019 COMPARISON: Prior CT lumbar spine 10/16/2017 HISTORY: cervicalgia and back pain CT DLP: 809 mGycm Automated exposure control for dose reduction was used. TECHNIQUE: CT scan of the cervical and lumbar spine is obtained without contrast, axial images are obtained, sag ittal and coronal reformatted images are also reviewed. FINDINGS: There is multilevel spondylosis. Loss of disc height is present at intervertebral levels. Cervical ve rtebral bodies show preserved height, bone mineralization is reduced. There is multilevel facet arthr opathy change. Minimal retrolisthesis grade 1 C3-4. Multilevel foraminal encroachment is present due to uncovertebral joint hypertrophy facet arthropathy. There is narrowing of the foramina bilaterally at C3-4, C4-5, C5-6, C6-7. Posterior broad-based disc bulge is suspected at C5-6 causing anterior mas s effect on the thecal sac, posterior extension endplate disc complex present at C6-7. Postop changes are noted the left occipital bone status post craniotomy. Lung apices are unremarkable . There are cerebral vascular calcifications. Cervical spine is visualized in its entirety from C1 through upper thoracic levels, demonstrates sati sfactory alignment without evidence of acute fracture or dislocation. Prevertebral soft tissue appea rs within normal limits. The C1-C2 articulation is within normal limits on the coronal images, there is pannus formation present.. IMPRESSION: There is no acute fracture or dislocation evident in the cervical spine. Disc disease and facet arthr opathy, multilevel foraminal encroachment. Lumbar spine CT: There is a stimulator with the generator within the soft tissues of the left back. T here are leads coursing into the thoracic canal at approximately T11 superior endplate level. Anterolisthesis grade 1 L3-4, L2-3. There is multilevel spondylosis. Loss of disc height present at i ntervertebral levels, multilevel vacuum phenomenon present to include L4-5, L1-2, T12 level and T11-1 2. There is multilevel facet arthropathy change. Lumbar vertebral bodies show preserved height. Bone mineralization is reduced. There is a spinal curvature. Atheromatous changes are extensive within the aortoiliac distribution. Surgical clip present in the b ilateral iliac regions. Probable cortical cyst present at the upper pole the left kidney as on prior exam which is increased in size and measures 3.1 cm showing Hounsfield units compatible with cyst. Ar thropathy change present at the sacroiliac joints with vacuum phenomenon. L5-S1: No spinal stenosis or disc herniation, no foraminal encroachment L4-5: Lateral extension endplate disc complex results in foraminal encroachment bilaterally. There ar e facet arthropathy changes. Posterior extension endplate disc complex causes anterior mass effect on the thecal sac. No significant spinal stenosis. L3-4: Listhesis contributes with facet arthropathy and hypertrophic change of the ligamentum flavum c ausing a trefoil appearance of the thecal sac. There is bilateral foraminal encroachment. Circumferen tial posterior disc bulge causes anterior mass effect on the thecal sac, moderate spinal stenosis. L2-3. Laminectomy present on the right. Posterior broad-based disc bulge causes anterior mass effect on the thecal sac. There is facet arthropathy change in the left. No significant spinal stenosis. The re is some mild foraminal encroachment due to circumferential extension endplate disc complex bilater ally right greater than left. L1-2: Posterior broad-based disc bulge causes mild anterior mass effect on the thecal sac. Circumfere ntial disc bulge causes foraminal encroachment bilaterally. On mild anterior mass effect on the theca l sac. No significant spinal stenosis. T12-L1: Posterior broad-based disc bulge causes mild anterior mass effect on the thecal sac. Some for aminal encroachment suspected on the left lateral extension endplate disc complex. Impression degenerative disc disease, facet arthropathy, multilevel foraminal encroachment, spinal st enosis. Spinal curvature. Postop changes. Additional findings above.
== END | disposition home or self-care (01) ==
LOC: RADCTMAIN 13:30
PROVIDERS: ATTEND Psychiatry & Neurology Neurology
DX: M47.812 Spondylosis without myelopathy or radiculopathy, cervical region (principal); M48.061 Spinal stenosis, lumbar region without neurogenic claudication; M51.26 Other intervertebral disc displacement, lumbar region; M51.36 Other intervertebral disc degeneration, lumbar region; M47.816 Spondylosis without myelopathy or radiculopathy, lumbar region; M43.16 Spondylolisthesis, lumbar region; M43.8X6 Other specified deforming dorsopathies, lumbar region; Z98.1 Arthrodesis status; Z88.0 Allergy status to penicillin
CPT/HCPCS: 72125; 72131

== ENCOUNTER 2019-12-12 11:07 | Inpatient (IN) | payer MEDICARE ==
[2019-12-12] MEDS ORDERED: SODIUM CHLORIDE 0.9% 500 ML 500 ML IV STA (11:32)
--- NOTE | 2019-12-12 11:36 | ED ---
General Adult HPI - General Chief complaint: GI Bleed Stated complaint: GI BLEED Time Seen by Provider: 12/12/19 11:10 Source: patient, RN notes reviewed, old records reviewed Mode of arrival: ambulatory Limitations: no limitations - History of Present Illness Initial comments: This is an 84-year-old female presents emergency department with past history significant for a fibrillation and she is on eliquis for that. Patient states since a week ago she's having a little bit of right-sided flank pain but as of last night she started having black and bloody stools. Patient states this just like tar. Patient states the flank pain persists as well. Patient denies any nausea vomiting diarrhea. Patient denies any shortness of breath but does state s she is more fatigued and weak lately. Patient denies any fever chills or cough. Patient denies any lightheadedness or dizziness. stated that there was bright red blood in the stool as well. - Related Data Home Medications Medication Instructions Recorded Confirmed Amitriptyline HCl [Elavil] 20 mg PO HS 12/24/16 03/15/18 Levothyroxine Sodium [Synthroid] 175 mcg PO DAILY 12/24/16 03/15/18 Atorvastatin [Lipitor] 40 mg PO HS 08/17/17 03/15/18 DULoxetine HCL [Cymbalta] 40 mg PO DAILY 10/16/17 03/15/18 Furosemide [Lasix] 40 mg PO DAILY 10/16/17 03/15/18 Montelukast [Singulair] 10 mg PO HS 10/16/17 03/15/18 Trospium Chloride [Sanctura XR] 60 mg PO DAILY 10/16/17 03/15/18 rOPINIRole HCL [Requip] 2 mg PO HS 10/16/17 03/15/18 Potassium Chloride [K-Tab ER] 10 meq PO DAILY 11/12/17 03/15/18 Famotidine [Pepcid] 20 mg PO DAILY 03/15/18 03/15/18 HYDROcodone/APAP 7.5-325MG [[place] 1 tab PO DAILY PRN 03/15/18 03/15/18 7.5-325] Ipratropium-Albuterol Nebulize 3 ml INHALATION RT-BID 03/15/18 03/15/18 [Duoneb 0.5 mg-3 mg/3 ml Soln] Nitroglycerin Sl Tabs [Nitrostat] 0.4 mg PO Q5M PRN 03/15/18 03/15/18 Triamterene-Hctz 37.5-25Mg 1 cap PO DAILY 03/15/18 03/15/18 [Dyazide 37.5-25 Capsule] Previous Rx's Medication Instructions Recorded Pregabalin [Lyrica] 150 mg PO BID #10 capsule 10/19/17 traMADol HCl [Ultram] 50 mg PO QID PRN #20 tab 10/19/17 Ondansetron Odt [Zofran Odt] 4 mg PO Q8HR PRN #12 tab 03/15/18 Allergies Allergy/AdvReac Type Severity Reaction Status Date / Time Penicillins Allergy Swelling/it Verified 12/12/19 11:11 lolis Review of Systems ROS Statement: Those systems with pertinent positive or pertinent negative responses have been documented in the HPI. ROS Other: All systems not noted in ROS Statement are negative. Past Medical History Past Medical History: Atrial Fibrillation, Cancer, CVA/TIA, Hypertension, Pneumonia Additional Past Medical History / Comment(s): chronic back pain, ovarian cancer History of Any Multi-Drug Resistant Organisms: C-DIFF Date of last positivie culture/infection: stool MDRO Source:: 1998 Past Surgical History: Back Surgery, Hernia Repair, Hysterectomy Additional Past Surgical History / Comment(s): jero knee,brain tumor removed, exp lap Past Anesthesia/Blood Transfusion Reactions: No Reported Reaction Past Psychological History: Depression Smoking Status: Never smoker Past Alcohol Use History: Rare Past Drug Use History: None Reported - Past Family History Father Family Medical History: Myocardial Infarction ([place]) Mother Additional Family Medical History / Comment(s): parkinson's Sister(s) Family Medical History: Cancer General Exam - General Exam Comments Initial Comments: GENERAL: Patient is well-developed and well-nourished. Patient is nontoxic and well- hydrated and is in mild distress. ENT: Neck is soft and supple. No significant lymphadenopathy is noted. Oropharynx is clear. Moist mucous membranes. Neck has full range of motion without eliciting any pain. EYES: The sclera were anicteric and conjunctiva were pink and moist. Extraocular movements were intact and pupils were equal round and reactive to light. Eyelids were unremarkable. PULMONARY: Unlabored respirations. Good breath sounds bilaterally. No audible rales rhonchi or wheezing was noted. CARDIOVASCULAR: There is a regular rate and rhythm without any murmurs gallops or rubs. ABDOMEN: Soft and nontender with normal bowel sounds. SKIN: Skin is clear with no lesions or rashes and otherwise unremarkable. NEUROLOGIC: Patient is alert and oriented x3. Cranial nerves II through XII are grossly intact. Motor and sensory are also intact. Normal speech, volume and content. Symmetrical smile. MUSCULOSKELETAL: Normal extremities with adequate strength and full range of motion. No lower extremity swelling or edema. No calf tenderness. LYMPHATICS: No significant lymphadenopathy is noted PSYCHIATRIC: Normal psychiatric evaluation. Limitations: no limitations Course Vital Signs 12/12/19 12/12/19 11:11 11:39 Temperature 97.9 F Pulse Rate 70 65 Respiratory 18 18 Rate Blood Pressure 130/61 117/67 O2 Sat by Pulse 94 L 97 Oximetry Medical Decision Making - Medical Decision Making EKG shows sinus rhythm at 64 bpm TX interval is 258 QRSs 103 QT interval 502 QTC is 517. Patient's EKG shows first-degree AV block there is no ST segment elevation or depression. I will back into reevaluate the patient she was resting comfortably. Her hemoglobin was 11.2. I spoke with Dr. Stephens he agreed to admit the patient admitted the patient wrote admitting orders I consulted GI - Lab Data Result diagrams: 12/12/19 11:30 12/12/19 11:30 Lab Results 12/12/19 12/12/19 12/12/19 Range/Units 11:30 11:30 11:30 WBC 8.0 (3.8-10.6) k/uL RBC 3.73 L (3.80-5.40) m/uL Hgb 11.2 L (11.4-16.0) gm/dL Hct 34.5 (34.0-46.0) % MCV 92.6 (80.0-100.0) fL MCH 30.1 (25.0-35.0) pg MCHC 32.5 (31.0-37.0) g/dL RDW 14.0 (11.5-15.5) % Plt Count 217 (150-450) k/uL Neutrophils % 71 % Lymphocytes % 20 % Monocytes % 6 % Eosinophils % 3 % Basophils % 0 % Neutrophils # 5.7 (1.3-7.7) k/uL Lymphocytes # 1.6 (1.0-4.8) k/uL Monocytes # 0.4 (0-1.0) k/uL Eosinophils # 0.2 (0-0.7) k/uL Basophils # 0.0 (0-0.2) k/uL Sodium 139 (137-145) mmol/L Potassium 4.0 (3.5-5.1) mmol/L Chloride 96 L (98-107) mmol/L Carbon Dioxide 35 H (22-30) mmol/L Anion Gap 8 mmol/L BUN 33 H (7-17) mg/dL Creatinine 0.89 (0.52-1.04) mg/dL Est GFR (CKD-EPI)AfAm 69 (>60 ml/min/1.73 sqM) Est GFR (CKD-EPI)NonAf 60 (>60 ml/min/1.73 sqM) Glucose 99 (74-99) mg/dL Calcium 10.0 (8.4-10.2) mg/dL Magnesium 2.2 (1.6-2.3) mg/dL Total Bilirubin 0.4 (0.2-1.3) mg/dL AST 32 (14-36) U/L ALT 22 (4-34) U/L Alkaline Phosphatase 111 (38-126) U/L Total Protein 6.7 (6.3-8.2) g/dL Albumin 4.1 (3.5-5.0) g/dL Blood Type Recheck No Previous Record Bld Type Recheck Status CABO Indicated Spec Expiration Date 12/15/20192329 Disposition Clinical Impression: GI bleed Disposition: ADMITTED IP TO THIS [facility] Referrals: Shira Ortega MD [Primary Care Provider] - 1-2 days Time of Disposition: 12:16
[2019-12-12 11:46] LABS: Basophils % (A) 0 %; Eosinophils # (A) 0.2 k/uL (0-0.7); Eosinophils % (A) 3 %; HCT 34.5 % (34.0-46.0); HGB 11.2 gm/dL (11.4-16.0); Lymphocytes # (A) 1.6 k/uL (1.0-4.8); Lymphocytes % (A) 20 %; MCH 30.1 pg (25.0-35.0); MCHC 32.5 g/dL (31.0-37.0); MCV 92.6 fL (80.0-100.0); Mean Platelet Volume 8.9; Monocytes # (A) 0.4 k/uL (0-1.0); Monocytes % (A) 6 %; Neutrophils # (A) 5.7 k/uL (1.3-7.7); Neutrophils % (A) 71 %; Platelet Count 217 k/uL (150-450); RBC 3.73 m/uL (3.80-5.40)
[2019-12-12 12:01] LABS: Albumin 4.1 g/dL (3.5-5.0); Magnesium 2.2 mg/dL (1.6-2.3); Total Bilirubin 0.4 mg/dL (0.2-1.3); Total Protein 6.7 g/dL (6.3-8.2)
[2019-12-12] MEDS ORDERED: SODIUM CHLORIDE 0.9% 1,000 ML IV ONE (12:17)
[2019-12-12 12:29] LABS: Partial Thromboplastin Time 25.8 sec (22.0-30.0); Prothrombin Time 10.1 sec (9.0-12.0)
[2019-12-12] MEDS ORDERED: IPRATROPIUM-ALBUTEROL 3 ML NEB INHALATION PRN (17:41)
[2019-12-12 18:45] LABS: Basophils % (A) 0 %; Eosinophils # (A) 0.2 k/uL (0-0.7); Eosinophils % (A) 3 %; HCT 32.6 % (34.0-46.0); HGB 10.3 gm/dL (11.4-16.0); Lymphocytes # (A) 1.3 k/uL (1.0-4.8); Lymphocytes % (A) 19 %; MCH 29.5 pg (25.0-35.0); MCHC 31.6 g/dL (31.0-37.0); MCV 93.3 fL (80.0-100.0); Mean Platelet Volume 8.9; Monocytes # (A) 0.4 k/uL (0-1.0); Monocytes % (A) 5 %; Neutrophils # (A) 4.7 k/uL (1.3-7.7); Neutrophils % (A) 71 %; Platelet Count 198 k/uL (150-450); RDW 13.9 % (11.5-15.5); WBC 6.7 k/uL (3.8-10.6)
[2019-12-12] MEDS: ATORVASTATIN 40 MG TAB PO SCH (20:23)
[2019-12-12] MEDS: PREGABALIN 75 MG CAP PO SCH (20:23)
[2019-12-12] MEDS: MONTELUKAST 10 MG TAB PO SCH (20:23)
[2019-12-12] MEDS: PANTOPRAZOLE 40 MG/10 ML VIAL IVP SCH (20:23)
[2019-12-13] MEDS: LEVOTHYROXINE SODIUM 100 MCG, LEVOTHYROXINE SODIUM 75 MCG PO SCH ×2 (05:17)
[2019-12-13 06:56] LABS: Basophils % (A) 0 %; Eosinophils # (A) 0.2 k/uL (0-0.7); Eosinophils % (A) 5 %; HCT 32.4 % (34.0-46.0); HGB 10.5 gm/dL (11.4-16.0); Hypochromasia Slight; Lymphocytes # (A) 1.2 k/uL (1.0-4.8); Lymphocytes % (A) 27 %; MCH 30.4 pg (25.0-35.0); MCHC 32.3 g/dL (31.0-37.0); MCV 94.1 fL (80.0-100.0); Mean Platelet Volume 8.5; Monocytes # (A) 0.2 k/uL (0-1.0); Monocytes % (A) 5 %; Neutrophils # (A) 2.8 k/uL (1.3-7.7); Neutrophils % (A) 62 %; Platelet Count 190 k/uL (150-450); RBC 3.44 m/uL (3.80-5.40); RDW 14.1 % (11.5-15.5); WBC 4.5 k/uL (3.8-10.6)
[2019-12-13 07:09] LABS: African American GFR (CKD) >90 (>60 ml/min/1.73 sqM); Anion Gap 7 mmol/L; Blood Urea Nitrogen 29 mg/dL (7-17); Calcium 9.4 mg/dL (8.4-10.2); Carbon Dioxide 30 mmol/L (22-30); Chloride 103 mmol/L (98-107); Glucose 93 mg/dL (74-99); Non-African American GFR(CKD) 82 (>60 ml/min/1.73 sqM); Potassium 3.3 mmol/L (3.5-5.1); Sodium 140 mmol/L (137-145)
[2019-12-13] MEDS: METOPROLOL SUCCINATE (ER) 25 MG TAB.ER.24H PO SCH (08:23)
[2019-12-13] MEDS: TROSPIUM CHLORIDE 20 MG TABLET PO SCH ×2 (08:23→20:37)
[2019-12-13] MEDS: PANTOPRAZOLE 40 MG/10 ML VIAL IVP SCH ×2 (08:24→20:37)
[2019-12-13] MEDS: TRIAMTERENE-HCTZ 37.5-25MG 1 EACH CAP PO SCH (08:24)
[2019-12-13] MEDS: FLUTICASONE 50MCG/SPRAY NASAL 16GM EA NOSTRIL SCH (08:24)
[2019-12-13] MEDS: DULoxetine HCL 20 MG CAPSULE.DR PO SCH (08:24)
[2019-12-13] MEDS: PREGABALIN 75 MG CAP PO SCH ×2 (08:24→20:37)
[2019-12-13] MEDS: HYDROcodone/APAP 7.5-325MG 1 EACH TAB PO PRN (08:27)
[2019-12-13] MEDS ORDERED: NON FORMULARY DRUG (Levothyroxine Sodium [Synthroid] 175 MCG) PO SCH (09:00)
[2019-12-13] MEDS ORDERED: FAMOTIDINE 20 MG TAB PO SCH (09:00)
[2019-12-13] MEDS ORDERED: POTASSIUM CHLORIDE ER 20 MEQ TAB.ER PO STA (12:03)
[2019-12-13] MEDS ORDERED: PEG 3350-NA SULF,BICARB,CL/KCL 4,000 ML BOTTLE PO ONE (16:00)
[2019-12-13] MEDS ORDERED: BISACODYL 5 MG TABLET.DR PO ONE (18:00)
[2019-12-13] MEDS: MONTELUKAST 10 MG TAB PO SCH (20:36)
[2019-12-13] MEDS: ATORVASTATIN 40 MG TAB PO SCH (20:36)
--- NOTE | 2019-12-13 21:47 | P.CONS ---
History of Present Illness - Reason for Consult Consult date: 12/13/19 GI bleed Requesting physician: Anyi Stephens - Chief Complaint GI bleed - History of Present Illness 84-year-old female with a medical history significant for hypertension, dyslipidemia, hypothyroidism and atrial fibrillation on anticoagulation therapy who presented due to concerns over GI bleed. The patient reports 3 episodes of dark black stool. She also noticed some bright red blood in the toilet. She reports some right flank pain. She denies any prior history of peptic ulcer disease. She does report a remote history of EGD and that her last colonoscopy was 20-25 years ago. No NSAID use and she reports using [place] is for pain. No nausea or vomiting. On presentation hemoglobin found to be 11.2 and subsequently 10.3 on repeat blood draw.Patient denies any lightheadedness or dizziness. Review of Systems REVIEW OF SYSTEMS: CONSTITUTIONAL: Denies any fevers, chills, weight change or fatigue. CARDIOVASCULAR: Denies any chest pain, palpitations high or low blood pressures, does have a history of atrial fibrillation. RESPIRATORY: Denies any shortness of breath, hemoptysis or cough. GENITOURINARY: No dysuria or hematuria. MUSCULOSKELETAL: No weakness reported. SKIN: Denies any new rashes or lesions, jaundice or pallor. PSYCHIATRIC: Denies any depression or anxiety, but does have a history of depression. NEUROLOGY: Denies headache, denies any new focal deficits. EARS/NOSE/THROAT: No recent hearing change, congestion, nasal discharge or sore throat. EYES: No pain in eyes, discharge or change in vision. GASTROINTESTINAL: As per HPI. Past Medical History Past Medical History: Atrial Fibrillation, Cancer, CVA/TIA, Hypertension, Pneum onia Additional Past Medical History / Comment(s): chronic back pain, ovarian cancer History of Any Multi-Drug Resistant Organisms: C-DIFF Year Discovered:: stool MDRO Source:: 1998 Past Surgical History: Back Surgery, Hernia Repair, Hysterectomy Additional Past Surgical History / Comment(s): jero knee,brain tumor removed, exp lap Past Anesthesia/Blood Transfusion Reactions: No Reported Reaction Past Psychological History: Depression Smoking Status: Never smoker Past Alcohol Use History: Rare Past Drug Use History: None Reported - Past Family History Father Family Medical History: Myocardial Infarction ([place]) Mother Additional Family Medical History / Comment(s): parkinson's Sister(s) Family Medical History: Cancer Medications and Allergies Home Medications Medication Instructions Recorded Confirmed Type Levothyroxine Sodium [Synthroid] 175 mcg PO DAILY 12/24/16 12/12/19 History Atorvastatin [Lipitor] 40 mg PO HS 08/17/17 12/12/19 History DULoxetine HCL [Cymbalta] 20 mg PO DAILY 10/16/17 12/12/19 History Furosemide [Lasix] 40 mg PO DAILY 10/16/17 12/12/19 History Montelukast [Singulair] 10 mg PO HS 10/16/17 12/12/19 History Trospium Chloride [Sanctura XR] 60 mg PO DAILY 10/16/17 12/12/19 History rOPINIRole HCL [Requip] 2 mg PO HS 10/16/17 12/12/19 History Pregabalin [Lyrica] 150 mg PO BID #10 capsule 10/19/17 12/12/19 Rx Famotidine [Pepcid] 20 mg PO DAILY 03/15/18 12/12/19 History HYDROcodone/APAP 7.5-325MG [[place] 1 tab PO BID PRN 03/15/18 12/12/19 History 7.5-325] Ipratropium-Albuterol Nebulize 3 ml INHALATION RT-BID PRN 03/15/18 12/12/19 History [Duoneb 0.5 mg-3 mg/3 ml Soln] Triamterene-Hctz 37.5-25Mg 1 cap PO DAILY 03/15/18 12/12/19 History [Dyazide 37.5-25 Capsule] Apixaban [Eliquis] 5 mg PO BID 12/12/19 12/12/19 History Fluticasone Nasal [place] [Flonase 1 spray EA NOSTRIL DAILY 12/12/19 12/12/19 History Nasal [place]] Metoprolol Succinate [Toprol XL] 25 mg PO DAILY 12/12/19 12/12/19 History Allergies Allergy/AdvReac Type Severity Reaction Status Date / Time Penicillins Allergy Swelling/it Verified 12/12/19 14:41 lolis Physical Exam Vitals: Vital Signs Temp Pulse Resp BP Pulse Ox 12/13/19 21:17 97.4 F L 61 18 137/74 98 12/13/19 17:05 97 12/13/19 12:07 97.8 F 65 17 126/74 97 12/13/19 05:07 98.1 F 68 18 154/67 93 L 12/13/19 00:00 18 Intake and Output 12/13/19 12/13/19 12/13/19 06:59 14:59 22:59 Other: Voiding Method Toilet Toilet # Voids 3 3 # Bowel Movements 1 On physical examination, patient appears comfortable in no apparent distress. HEAD: Normocephalic, atraumatic. EYES: No scleral icterus. No conjunctival injection. MOUTH: No lesions, tongue midline. NECK: Trachea midline, no gross abnormalities. CHEST: Clear to auscultation with no wheezing or rhonchi appreciated. HEART: S1-S2 appreciated. ABDOMEN: Soft, obese. Bowel sounds are positive. No organomegaly. No guarding or rigidity. EXTREMITIES: No pedal edema. SKIN: No rashes, no jaundice. NEUROLOGIC: Alert and oriented x3. No focal deficits. Results CBC & Chem 7: 12/13/19 06:35 12/13/19 06:35 Labs: Abnormal Lab Results - Last 24 Hours (Table) 12/13/19 12/13/19 Range/Units 06:35 06:35 RBC 3.44 L (3.80-5.40) m/uL Hgb 10.5 L (11.4-16.0) gm/dL Hct 32.4 L (34.0-46.0) % Potassium 3.3 L (3.5-5.1) mmol/L BUN 29 H (7-17) mg/dL Assessment and Plan (1) GI bleed Narrative/Plan: 4-year-old female with multiple medical comorbidities presenting to the hospital with reports of 3 episodes of dark tarry melanotic stool with associated bright red blood per rectum. Denies any abdominal pain. Denies any nausea, vomiting, history of peptic ulcer disease, NSAID use. Remote history of both EGD and colonoscopy. Unclear etiology, may be related to peptic ulcer disease, esophagitis, gastritis, AVM, or lower GI pathology such as diverticular disease. Current Visit: Yes Status: Acute Code(s): K92.2 - GASTROINTESTINAL HEMORRHAGE, UNSPECIFIED SNOMED Code(s): 42281199 (2) Melena Current Visit: Yes Status: Acute Code(s): K92.1 - MELENA SNOMED Code(s): 2282115 Plan: Supportive care Clear liquid diet Nothing by mouth after midnight Continue to monitor hemoglobin and hematocrit and transfuse as needed Bowel prep ordered Plan for EGD and colonoscopy tomorrow for further investigation Hold any anticoagulation therapy at this time Thank you for allowing us to participate in the care of the patient
--- NOTE | 2019-12-13 22:49 | P.HPIM ---
History of Present Illness H&P Date: 12/12/19 Chief Complaint: dark stools Patient is a 84-year-old female with a known history of atrial fibrillation on anticoagulation with Eliquis, history of CVA/TIA, hypertension, chronic back pain and depression came to ER with the complaints of dark-colored stools x1 day duration. Patient also states that she had nosebleed until 1 week ago lasted for about 10 days. Patient is also having nausea. No episodes of vomiting. No hematemesis. Patient also states that she has been having bright red blood per rectum as well on and off. Denied any recent history of EGD or colonoscopy. Denied any complaints of chest pain or shortness of breath. But does states that it is more fatigued and weak lately. No complaints of fever or chills. No cough or sputum production. No headache or dizziness or lightheadedness. Denied any [id number] pain medication or NSAID use. Laboratory data showed hemoglobin 11.2 BUN 33 and creatinine 0.89, chloride 96 and bicarb is 35 Troponin x1- Liver enzymes are not elevated COVID-19 PCR negative EKG showed sinus rhythm with first-degree AV block Review of Systems Constitutional: Patient denies any fever or chills . No generalized weakness or weight loss. Fatigue. Abdomen: Patient denied vomiting and diarrhea and abdominal pain. Does have nausea and dark-colored stools. Cardiovascular: Patient denies any chest pain or short of breath no palpitations. Respiratory: patient denied any cough is from production. No shortness of breath Neurologic: Patient denied any numbness or tingling. Patient does have dizziness and headache and ringing ears. Musculoskeletal: Patient denies any complaints of joint swelling or deformity. Skin: Negative Psychiatric: Negative Endocrine: No heat or cold intolerance. No recent weight gain. Genitourinary: No dysuria or hematuria. All other 14 point ROS negative except the above Past Medical History Past Medical History: Atrial Fibrillation, Cancer, CVA/TIA, Hypertension, Pneumonia Additional Past Medical History / Comment(s): chronic back pain, ovarian cancer History of Any Multi-Drug Resistant Organisms: C-DIFF Date of last positivie culture/infection: stool MDRO Source:: 1998 Past Surgical History: Back Surgery, Hernia Repair, Hysterectomy Additional Past Surgical History / Comment(s): jero knee,brain tumor removed, exp lap Past Anesthesia/Blood Transfusion Reactions: No Reported Reaction Past Psychological History: Depression Smoking Status: Never smoker Past Alcohol Use History: Rare Past Drug Use History: None Reported - Past Family History Father Family Medical History: Myocardial Infarction (ID) Mother Additional Family Medical History / Comment(s): parkinson's Sister(s) Family Medical History: Cancer Medications and Allergies Home Medications Medication Instructions Recorded Confirmed Type Levothyroxine Sodium [Synthroid] 175 mcg PO DAILY 12/24/16 12/12/19 History Atorvastatin [Lipitor] 40 mg PO HS 08/17/17 12/12/19 History DULoxetine HCL [Cymbalta] 20 mg PO DAILY 10/16/17 12/12/19 History Furosemide [Lasix] 40 mg PO DAILY 10/16/17 12/12/19 History Montelukast [Singulair] 10 mg PO HS 10/16/17 12/12/19 History Trospium Chloride [Sanctura XR] 60 mg PO DAILY 10/16/17 12/12/19 History rOPINIRole HCL [Requip] 2 mg PO HS 10/16/17 12/12/19 History Pregabalin [Lyrica] 150 mg PO BID #10 capsule 10/19/17 12/12/19 Rx Famotidine [Pepcid] 20 mg PO DAILY 03/15/18 12/12/19 History HYDROcodone/APAP 7.5-325MG [[place] 1 tab PO BID PRN 03/15/18 12/12/19 History 7.5-325] Ipratropium-Albuterol Nebulize 3 ml INHALATION RT-BID PRN 03/15/18 12/12/19 History [Duoneb 0.5 mg-3 mg/3 ml Soln] Triamterene-Hctz 37.5-25Mg 1 cap PO DAILY 03/15/18 12/12/19 History [Dyazide 37.5-25 Capsule] Apixaban [Eliquis] 5 mg PO BID 12/12/19 12/12/19 History Fluticasone Nasal [place] [Flonase 1 spray EA NOSTRIL DAILY 12/12/19 12/12/19 History Nasal [place]] Metoprolol Succinate [Toprol XL] 25 mg PO DAILY 12/12/19 12/12/19 History Allergies Allergy/AdvReac Type Severity Reaction Status Date / Time Penicillins Allergy Swelling/it Verified 12/12/19 14:41 lolis Physical Exam Vitals: Vital Signs Temp Pulse Pulse Resp BP BP Pulse Ox 12/12/19 20:05 62 18 12/12/19 20:04 97.5 F L 62 18 124/58 100 12/12/19 16:54 97.9 F 67 16 144/61 96 12/12/19 16:00 67 16 12/12/19 15:54 97.9 F 67 16 144/61 96 12/12/19 15:53 58 L 18 110/41 100 12/12/19 13:57 65 18 115/45 100 12/12/19 13:00 61 18 113/53 100 12/12/19 12:00 60 18 111/59 100 12/12/19 11:39 65 18 117/67 97 12/12/19 11:11 97.9 F 70 18 130/61 94 L Intake and Output 12/12/19 12/12/19 12/13/19 14:59 22:59 06:59 Intake Total 1070 Balance 1070 Intake: Intake, IV Titration 350 Amount Sodium Chloride 0.9% 1, 350 000 ml @ 75 mls/hr IV . [id number] ONE Rx#:[id number] Oral 720 Other: Voiding Method Toilet # Voids 2 Weight 99.79 kg 99.79 kg PHYSICAL EXAMINATION: Patient is lying in the bed comfortably, no acute distress, awake alert and oriented.. HEENT: Normocephalic. Neck is supple. Pupils reactive. Nostrils clear. Oral cavity is moist. Ears reveal no drainage. Neck reveals no JVD, carotid bruits, or thyromegaly. CHEST EXAMINATION: Trachea is central. Symmetrical expansion. Lung person clear to auscultation and percussion. CARDIAC: Normal S1, S2 with no gallops. No murmurs ABDOMEN: Soft. Bowel sounds normal. No organomegaly. No abdominal bruits. Extremities: reveal no edema. No clubbing or cyanosis Neurologically awake, alert, oriented x3 with well-coordinated movements. No focal deficits noted Skin: No rash or skin lesions. Psychiatric: Coperative. Nonsuicidal Musculoskeletal: No joint swelling or deformity. Normal range of motion. Results CBC & Chem 7: 12/13/19 06:35 12/13/19 06:35 Labs: Abnormal Lab Results - Last 24 Hours (Table) 12/12/19 12/12/19 12/12/19 Range/Units 11:30 11:30 18:34 RBC 3.73 L 3.50 L (3.80-5.40) m/uL Hgb 11.2 L 10.3 L (11.4-16.0) gm/dL Hct 32.6 L (34.0-46.0) % Chloride 96 L (98-107) mmol/L Carbon Dioxide 35 H (22-30) mmol/L BUN 33 H (7-17) mg/dL Thrombosis Risk Factor Assmnt - DVT/VTE Prophylaxis DVT/VTE Prophylaxis: Mechanical Prophylaxis ordered - Choose All That Apply Each Factor Represents 1 point: Swollen legs (current) Other Risk Factors: Yes Each Risk Factor Represents 3 Points: Age 75 years or older Other congenital or acquired thrombophilia - If yes, enter type in comment: No Thrombosis Risk Factor Assessment Total Risk Factor Score: 4 Thrombosis Risk Factor Assessment Level: Moderate Risk Assessment and Plan Assessment: Dark-colored stools/melena likely due to GI bleed Bright red blood per rectum Symptomatic anemia Paroxysmal atrial fibrillation on anticoagulation with Eliquis at home History of CVA/TIA Hypertension Chronic back pain Depression DVT prophylaxis with SCDs Plan: Patient will be started on Protonix IV twice daily and monitor H&H closely. Eliquis is on hold now due to GI bleed. Continue with other home medications and follow-up closely. Gastroenterology service was consulted. Further recommendations based on clinical course. Discussed with her daughter at bedside in detail. Time with Patient: Greater than 30
--- NOTE | 2019-12-13 22:51 | P.PN ---
Subjective Progress Note Date: 12/13/19 Principal diagnosis: GI bleed Patient is a 84-year-old female with a known history of atrial fibrillation on anticoagulation with Eliquis, history of CVA/TIA, hypertension, chronic back pain and depression came to ER with the complaints of dark-colored stools x1 day duration. Patient also states that she had nosebleed until 1 week ago lasted fo r about 10 days. Patient is also having nausea. No episodes of vomiting. No hematemesis. Patient also states that she has been having bright red blood per rectum as well on and off. Denied any recent history of EGD or colonoscopy. Denied any complaints of chest pain or shortness of breath. But does states that it is more fatigued and weak lately. No complaints of fever or chills. No cough or sputum production. No headache or dizziness or lightheadedness. Denied any [id number] pain medication or NSAID use. Laboratory data showed hemoglobin 11.2 BUN 33 and creatinine 0.89, chloride 96 and bicarb is 35 Troponin x1- Liver enzymes are not elevated COVID-19 PCR negative EKG showed sinus rhythm with first-degree AV block 12/13/2019 Patient is currently sitting in the chair comfortably. No complaints of dizziness or lightheadedness. Hemoglobin slightly dropped to 10.5 today. Denied any dark-colored stools today. Gastroenterology service is following and is planning for EGD tomorrow. Patient is being continued on Protonix. Potassium was replaced. Otherwise no cough or sputum production. No fever no chills. No chest pain or shortness of breath. Current medications reviewed. Objective - Vital Signs Vital signs: Vital Signs Temp 97.4 F L 12/13/19 21:17 Pulse 61 12/13/19 21:17 Resp 18 12/13/19 21:17 BP 137/74 12/13/19 21:17 Pulse Ox 98 12/13/19 21:17 Intake & Output 12/13/19 12/13/19 12/14/19 06:59 18:59 06:59 Intake Total 830 Balance 830 Intake: Intake, IV Titration 350 Amount Sodium Chloride 0.9% 1, 350 000 ml @ 75 mls/hr IV . [id number] ONE Rx#:[id number] Oral 480 Other: Voiding Method Toilet Toilet # Voids 3 3 # Bowel Movements 1 - Exam PHYSICAL EXAMINATION: Patient is lying in the bed comfortably, no acute distress, awake alert and oriented.. HEENT: Normocephalic. Neck is supple. Pupils reactive. Nostrils clear. Oral cavity is moist. Ears reveal no drainage. Neck reveals no JVD, carotid bruits, or thyromegaly. CHEST EXAMINATION: Trachea is central. Symmetrical expansion. Lung person clear to auscultation and percussion. CARDIAC: Normal S1, S2 with no gallops. No murmurs ABDOMEN: Soft. Bowel sounds normal. No organomegaly. No abdominal bruits. Extremities: reveal no edema. No clubbing or cyanosis Neurologically awake, alert, oriented x3 with well-coordinated movements. No focal deficits noted Skin: No rash or skin lesions. Psychiatric: Coperative. Nonsuicidal Musculoskeletal: No joint swelling or deformity. Normal range of motion. - Labs CBC & Chem 7: 12/13/19 06:35 12/13/19 06:35 Labs: Abnormal Lab Results - Last 24 Hours (Table) 12/13/19 12/13/19 Range/Units 06:35 06:35 RBC 3.44 L (3.80-5.40) m/uL Hgb 10.5 L (11.4-16.0) gm/dL Hct 32.4 L (34.0-46.0) % Potassium 3.3 L (3.5-5.1) mmol/L BUN 29 H (7-17) mg/dL Assessment and Plan Assessment: Dark-colored stools/melena likely due to GI bleed Bright red blood per rectum Symptomatic anemia Mild acute blood loss anemia. Paroxysmal atrial fibrillation on anticoagulation with Eliquis at home History of CVA/TIA Hypertension Chronic back pain Depression DVT prophylaxis with SCDs Plan: Patient will be started on Protonix IV twice daily and monitor H&H closely. Eliquis is on hold now due to GI bleed. Continue with other home medications and follow-up closely. Gastroenterology is planning for EGD tomorrow.. Further recommendations based on clinical course. Discussed with her daughter at bedside in detail. Time with Patient: Greater than 30
[2019-12-14] MEDS: LEVOTHYROXINE SODIUM 100 MCG, LEVOTHYROXINE SODIUM 75 MCG PO SCH ×2 (05:48)
[2019-12-14] MEDS: LACTATED RINGERS 1,000 ML IV SCH ×2 (05:51→15:35)
[2019-12-14 07:53] LABS: Basophils % (A) 0 %; Eosinophils # (A) 0.1 k/uL (0-0.7); Eosinophils % (A) 1 %; HCT 32.4 % (34.0-46.0); HGB 10.5 gm/dL (11.4-16.0); Lymphocytes # (A) 0.8 k/uL (1.0-4.8); Lymphocytes % (A) 9 %; MCH 29.8 pg (25.0-35.0); MCHC 32.3 g/dL (31.0-37.0); Mean Platelet Volume 9.4; Monocytes # (A) 0.3 k/uL (0-1.0); Monocytes % (A) 4 %; Neutrophils # (A) 7.3 k/uL (1.3-7.7); Neutrophils % (A) 86 %; Platelet Count 190 k/uL (150-450); RBC 3.52 m/uL (3.80-5.40); RDW 14.4 % (11.5-15.5); WBC 8.6 k/uL (3.8-10.6)
[2019-12-14] MEDS: TRIAMTERENE-HCTZ 37.5-25MG 1 EACH CAP PO SCH (08:14)
[2019-12-14] MEDS: FLUTICASONE 50MCG/SPRAY NASAL 16GM EA NOSTRIL SCH (08:14)
[2019-12-14] MEDS: TROSPIUM CHLORIDE 20 MG TABLET PO SCH ×2 (08:14→21:12)
[2019-12-14] MEDS: METOPROLOL SUCCINATE (ER) 25 MG TAB.ER.24H PO SCH (08:14)
[2019-12-14] MEDS: PREGABALIN 75 MG CAP PO SCH ×2 (08:14→21:12)
[2019-12-14] MEDS: PANTOPRAZOLE 40 MG/10 ML VIAL IVP SCH ×2 (08:14→21:12)
[2019-12-14] MEDS: DULoxetine HCL 20 MG CAPSULE.DR PO SCH (08:14)
[2019-12-14] MEDS: HYDROcodone/APAP 7.5-325MG 1 EACH TAB PO PRN (08:23)
[2019-12-14 08:24] LABS: African American GFR (CKD) >90 (>60 ml/min/1.73 sqM); Anion Gap 7 mmol/L; Blood Urea Nitrogen 20 mg/dL (7-17); Calcium 9.3 mg/dL (8.4-10.2); Carbon Dioxide 31 mmol/L (22-30); Chloride 104 mmol/L (98-107); Glucose 75 mg/dL (74-99); Non-African American GFR(CKD) 85 (>60 ml/min/1.73 sqM); Sodium 142 mmol/L (137-145)
[2019-12-14 08:37] LABS: Potassium 4.7 mmol/L (3.5-5.1)
[2019-12-14] MEDS ORDERED: MAGNESIUM CITRATE 296 ML BOTTLE PO ONE (09:00)
[2019-12-14] MEDS ORDERED: PROPOFOL 10 MG/ML 20 ML VIAL IV ONE (11:07)
[2019-12-14] MEDS ORDERED: IV FLUID CONTINUATION 1,000 ML IV ONE (11:08)
--- NOTE | 2019-12-14 11:40 | P.PCN ---
Date of Procedure: 12/14/19 Description of Procedure: Brief history: 84-year-old female with a medical history significant for hypertension, dyslipidemia, hypothyroidism and atrial fibrillation on anticoagulation therapy who presented due to concerns over GI bleed. The patient reports 3 episodes of dark black stool. She also noticed some bright red blood in the toilet. She reports some right flank pain. She denies any prior history of peptic ulcer disease. She does report a remote history of EGD and that her last colonoscopy was 20-25 years ago. No NSAID use and she reports using Gracey is for pain. No nausea or vomiting. On presentation hemoglobin found to be 11.2 and subsequently 10.3 on repeat blood draw, but is been stable at 10.5 today. Patient denies any lightheadedness or dizziness. Procedure performed: Esophagogastroduodenoscopy with biopsy Colonoscopy failed/aborted secondary to poor prep Estimated blood loss: Minimal. Preoperative diagnosis: Anemia, melena, blood per rectum Anesthesia: MAC Procedure: After informed consent was obtained from the patient was brought into the endoscopy unit and IV sedation was administered by anesthesia under continuous monitoring. Initially upper endoscopy was done. The Olympus GF 190 video endoscope was inserted into the mouth and esophagus intubated without any difficulty and was gradually advanced into the stomach and duodenum and carefully examined. The bulb and second part of the duodenum appeared normal, With biopsies taken. The scope was then withdrawn into the stomach adequately insufflated with air and upon careful examination the antrum and body, cardia and fundus appeared normal, Except for some mild scattered erythema in the antrum and body with biopsies taken. The scope was then withdrawn into the esophagus. The GE junction was located at 39 cm to the incisors. It appeared regular with no erythema erosions or ulcerations. Rest of the esophagus appeared normal. Patient tolerated the procedure well. At this time the patient continued to remain sedation. Initial digital rectal examination was normal. Olympus CF 190 video colonoscope was then inserted into the rectum and gradually advanced to sigmoid colon, however solid stool was noted throughout the colon and the procedure was aborted as a prep prohibited complete visualization of the mucosa. Patient tolerated the procedure well. Impression: 1. Mild gastritis antrum and body, biopsied. Duodenal biopsies. 2. Poor colon prep, with colonoscopy aborted due to solid stool in the colon. 3. No active bleeding or source of bleeding found on EGD or aborted colonoscopy. Recommendations: Findings of this examination were discussed with the patient. Attempt was made to call patient's however no unanswered the phone. Await pathology from biopsies. Okay for liquid diet. Will give the patient further prep today and plan for repeat colonoscopy tomorrow.
[2019-12-14] MEDS ORDERED: PEG 3350-NA SULF,BICARB,CL/KCL 4,000 ML BOTTLE PO ONE (16:00)
[2019-12-14] MEDS: MONTELUKAST 10 MG TAB PO SCH (21:12)
[2019-12-14] MEDS: ATORVASTATIN 40 MG TAB PO SCH (21:12)
--- NOTE | 2019-12-15 01:13 | P.PN ---
Subjective Progress Note Date: 12/14/19 Principal diagnosis: GI bleed Patient is a 84-year-old female with a known history of atrial fibrillation on anticoagulation with Eliquis, history of CVA/TIA, hypertension, chronic back pain and depression came to ER with the complaints of dark-colored stools x1 day duration. Patient also states that she had nosebleed until 1 week ago lasted fo r about 10 days. Patient is also having nausea. No episodes of vomiting. No hematemesis. Patient also states that she has been having bright red blood per rectum as well on and off. Denied any recent history of EGD or colonoscopy. Denied any complaints of chest pain or shortness of breath. But does states that it is more fatigued and weak lately. No complaints of fever or chills. No cough or sputum production. No headache or dizziness or lightheadedness. Denied any [id number]-xsjapus pain medication or NSAID use. Laboratory data showed hemoglobin 11.2 BUN 33 and creatinine 0.89, chloride 96 and bicarb is 35 Troponin x1- Liver enzymes are not elevated COVID-19 PCR negative EKG showed sinus rhythm with first-degree AV block 12/13/2019 Patient is currently sitting in the chair comfortably. No complaints of dizziness or lightheadedness. Hemoglobin slightly dropped to 10.5 today. Denied any dark-colored stools today. Gastroenterology service is following and is planning for EGD tomorrow. Patient is being continued on Protonix. Potassium was replaced. Otherwise no cough or sputum production. No fever no chills. No chest pain or shortness of breath. 12/14/19 Patient is currently resting comfortably in the bed. Status post EGD today. Colonoscopy could not be done due to poor preparation. Planning for tomorrow. Hemoglobin is fairly stable. GI is following. Patient denied any complaints of chest pain or shortness breath. No nausea vomiting or abdominal pain or diarrhea. Impression: 1. Mild gastritis antrum and body, biopsied. Duodenal biopsies. 2. Poor colon prep, with colonoscopy aborted due to solid stool in the colon. 3. No active bleeding or source of bleeding found on EGD or aborted colonoscopy. Current medications reviewed. Objective - Vital Signs Vital signs: Vital Signs Temp 97.4 F L 12/14/19 19:47 Pulse 67 12/14/19 19:47 Resp 18 12/14/19 19:47 BP 115/55 12/14/19 19:47 Pulse Ox 96 12/14/19 19:47 Intake & Output 12/14/19 12/14/19 12/15/19 06:59 18:59 06:59 Intake Total 225 440 Output Total 3 Balance 225 437 Intake: IV 200 Intake, IV Titration 225 Amount Sodium Chloride 0.9% 1, 225 000 ml @ 75 mls/hr IV . [id number] ONE Rx#:[id number] Oral 240 Output: Stool 3 Other: Voiding Method Toilet Toilet # Voids 2 1 # Bowel Movements 2 1 2 - Exam PHYSICAL EXAMINATION: Patient is lying in the bed comfortably, no acute distress, awake alert and oriented.. HEENT: Normocephalic. Neck is supple. Pupils reactive. Nostrils clear. Oral cavity is moist. Ears reveal no drainage. Neck reveals no JVD, carotid bruits, or thyromegaly. CHEST EXAMINATION: Trachea is central. Symmetrical expansion. Lung person clear to auscultation and percussion. CARDIAC: Normal S1, S2 with no gallops. No murmurs ABDOMEN: Soft. Bowel sounds normal. No organomegaly. No abdominal bruits. Extremities: reveal no edema. No clubbing or cyanosis Neurologically awake, alert, oriented x3 with well-coordinated movements. No focal deficits noted Skin: No rash or skin lesions. Psychiatric: Coperative. Nonsuicidal Musculoskeletal: No joint swelling or deformity. Normal range of motion. - Labs CBC & Chem 7: 12/14/19 06:53 12/14/19 06:53 Labs: Abnormal Lab Results - Last 24 Hours (Table) 12/14/19 12/14/19 12/14/19 Range/Units 00:30 06:53 06:53 RBC 3.52 L (3.80-5.40) m/uL Hgb 10.5 L (11.4-16.0) gm/dL Hct 32.4 L (34.0-46.0) % Lymphocytes # 0.8 L (1.0-4.8) k/uL Carbon Dioxide 31 H (22-30) mmol/L BUN 20 H (7-17) mg/dL Stool Occult Blood Positive H (Negative) Assessment and Plan Assessment: Dark-colored stools/melena likely due to GI bleed. s/p EGD showed Acute gastritis. Bright red blood per rectum Symptomatic anemia Mild acute blood loss anemia. Paroxysmal atrial fibrillation on anticoagulation with Eliquis at home History of CVA/TIA Hypertension Chronic back pain Depression DVT prophylaxis with SCDs Plan: Patient will be started on Protonix IV twice daily and monitor H&H closely. Eliquis is on hold now due to GI bleed. Continue with other home medications and follow-up closely. Gastroenterology is planning for EGD tomorrow.. Further recommendations based on clinical course. Discussed with her daughter at bedside in detail. Time with Patient: Greater than 30
[2019-12-15] MEDS: LEVOTHYROXINE SODIUM 100 MCG, LEVOTHYROXINE SODIUM 75 MCG PO SCH ×2 (06:03)
[2019-12-15 06:33] LABS: Basophils % (A) 0 %; Eosinophils # (A) 0.2 k/uL (0-0.7); Eosinophils % (A) 3 %; HCT 29.6 % (34.0-46.0); HGB 9.5 gm/dL (11.4-16.0); Hypochromasia Slight; Lymphocytes # (A) 1.1 k/uL (1.0-4.8); Lymphocytes % (A) 20 %; MCH 30.6 pg (25.0-35.0); MCHC 32.1 g/dL (31.0-37.0); MCV 95.4 fL (80.0-100.0); Mean Platelet Volume 8.7; Monocytes # (A) 0.3 k/uL (0-1.0); Monocytes % (A) 5 %; Neutrophils # (A) 4.2 k/uL (1.3-7.7); Neutrophils % (A) 71 %; Platelet Count 184 k/uL (150-450); RDW 14.7 % (11.5-15.5); WBC 5.9 k/uL (3.8-10.6)
[2019-12-15 06:48] LABS: African American GFR (CKD) >90 (>60 ml/min/1.73 sqM); Anion Gap 6 mmol/L; Blood Urea Nitrogen 10 mg/dL (7-17); Calcium 8.6 mg/dL (8.4-10.2); Carbon Dioxide 32 mmol/L (22-30); Chloride 102 mmol/L (98-107); Glucose 80 mg/dL (74-99); Non-African American GFR(CKD) 86 (>60 ml/min/1.73 sqM); Potassium 3.2 mmol/L (3.5-5.1); Sodium 140 mmol/L (137-145)
[2019-12-15] MEDS: HYDROcodone/APAP 7.5-325MG 1 EACH TAB PO PRN (08:59)
[2019-12-15] MEDS: FLUTICASONE 50MCG/SPRAY NASAL 16GM EA NOSTRIL SCH (09:00)
[2019-12-15] MEDS: PREGABALIN 75 MG CAP PO SCH ×2 (09:01→20:17)
[2019-12-15] MEDS: METOPROLOL SUCCINATE (ER) 25 MG TAB.ER.24H PO SCH (09:01)
[2019-12-15] MEDS: TROSPIUM CHLORIDE 20 MG TABLET PO SCH ×2 (09:01→20:16)
[2019-12-15] MEDS: PANTOPRAZOLE 40 MG/10 ML VIAL IVP SCH ×2 (09:01→20:16)
[2019-12-15] MEDS: TRIAMTERENE-HCTZ 37.5-25MG 1 EACH CAP PO SCH (09:02)
[2019-12-15] MEDS: DULoxetine HCL 20 MG CAPSULE.DR PO SCH (09:02)
[2019-12-15] MEDS ORDERED: PROPOFOL 10 MG/ML 20 ML VIAL IV ONE (13:35)
[2019-12-15] MEDS ORDERED: SODIUM CHLORIDE 0.9% 500 ML 500 ML IV ONE ×2 (13:38)
--- NOTE | 2019-12-15 14:24 | P.PCN ---
Date of Procedure: 12/15/19 Procedure(s) Performed: BRIEF HISTORY: Patient is a 84-year-old pleasant white female admitted hospital with acute GI bleed. She had multiple episodes of dark colored stools. She has history of A. fib and has been on a Eliquis is on hold for 3 days. She underwent an upper endoscopy and attempted colonoscopy by Dr. Clemons yesterday. Upper endoscopy revealed mild gastritis. Colonoscopy was aborted because of poor prep. Hence she is scheduled for repeat colonoscopy today PROCEDURE PERFORMED: Colonoscopy. PREOPERATIVE DIAGNOSIS: Acute GI bleed/negative Upper endoscopy yesterday. IV sedation per Anesthesia. PROCEDURE: After informed consent was obtained, the patient, was brought into the endoscopy unit. IV sedation was administered by Anesthesia under continuous monitoring. Digital rectal examination was normal. Initially the Olympus CF-160 flexible video colonoscope was then inserted in the rectum, gradually advanced into the cecum without any difficulty. Careful examination was performed as the scope was gradually being withdrawn. Ileocecal valve and the appendiceal orifice were visualized and appeared normal. Prep was excellent. Mucosa of the cecum, ascending colon, transverse colon, descending colon, sigmoid colon, and rectum appeared normal. Retroflexion was performed in the rectum and no lesions were seen. The patient tolerated the procedure well. IMPRESSION: Normal-appearing colon from rectum to cecum with no evidence of colitis or colorectal neoplasia. No active bleeding seen. . RECOMMENDATIONS: Findings of this examination were discussed with the patient. Diet will be advanced as tolerated. Anticoagulation can be resumed tomorrow. Repeat CBC in the morning..
[2019-12-15] MEDS ORDERED: POTASSIUM CHLORIDE ER 20 MEQ TAB.ER PO STA (16:55)
[2019-12-15] MEDS: ATORVASTATIN 40 MG TAB PO SCH (20:16)
[2019-12-15] MEDS: MONTELUKAST 10 MG TAB PO SCH (20:16)
[2019-12-15 21:40] VITALS: RESP 18
[2019-12-15] MEDS: LACTATED RINGERS 1,000 ML IV SCH (22:45)
[2019-12-16] MEDS ORDERED: Potassium Replacement Protocol 1 EACH MISC MISCELLANE PRN (01:13)
--- NOTE | 2019-12-16 01:17 | P.PN ---
Subjective Progress Note Date: 12/15/19 Principal diagnosis: GI bleed Patient is a 84-year-old female with a known history of atrial fibrillation on anticoagulation with Eliquis, history of CVA/TIA, hypertension, chronic back pain and depression came to ER with the complaints of dark-colored stools x1 day duration. Patient also states that she had nosebleed until 1 week ago lasted fo r about 10 days. Patient is also having nausea. No episodes of vomiting. No hematemesis. Patient also states that she has been having bright red blood per rectum as well on and off. Denied any recent history of EGD or colonoscopy. Denied any complaints of chest pain or shortness of breath. But does states that it is more fatigued and weak lately. No complaints of fever or chills. No cough or sputum production. No headache or dizziness or lightheadedness. Denied any [id number] pain medication or NSAID use. Laboratory data showed hemoglobin 11.2 BUN 33 and creatinine 0.89, chloride 96 and bicarb is 35 Troponin x1- Liver enzymes are not elevated COVID-19 PCR negative EKG showed sinus rhythm with first-degree AV block 12/13/2019 Patient is currently sitting in the chair comfortably. No complaints of dizziness or lightheadedness. Hemoglobin slightly dropped to 10.5 today. Denied any dark-colored stools today. Gastroenterology service is following and is planning for EGD tomorrow. Patient is being continued on Protonix. Potassium was replaced. Otherwise no cough or sputum production. No fever no chills. No chest pain or shortness of breath. 12/14/19 Patient is currently resting comfortably in the bed. Status post EGD today. Colonoscopy could not be done due to poor preparation. Planning for tomorrow. Hemoglobin is fairly stable. GI is following. Patient denied any complaints of chest pain or shortness breath. No nausea vomiting or abdominal pain or diarrhea. Impression: 1. Mild gastritis antrum and body, biopsied. Duodenal biopsies. 2. Poor colon prep, with colonoscopy aborted due to solid stool in the colon. 3. No active bleeding or source of bleeding found on EGD or aborted colonoscopy. 12/15/2019 Patient needs lethargic and drowsy at this time. Just came back from operating room. Patient had colonoscopy today showed Normal-appearing colon from rectum to cecum with no evidence of colitis or colorectal neoplasia. No active bleeding seen. Eliquis will be restarted from tomorrow morning. Monitor H&H. Potassium will be replaced. Otherwise advance diet and follow-up closely. Anticipate discharge once the hemoglobin is stable. Current medications reviewed. Objective - Vital Signs Vital signs: Vital Signs Temp 98.2 F 12/15/19 21:00 Pulse 72 12/15/19 21:00 Resp 18 12/15/19 21:00 BP 135/71 12/15/19 21:00 Pulse Ox 96 12/15/19 21:00 Intake & Output 12/15/19 12/15/19 12/16/19 06:59 18:59 06:59 Intake Total 160 360 Output Total 3 Balance 160 357 Intake: IV 200 Intake, IV Titration 160 160 Amount Lactated Ringers 1,000 ml 160 160 @ 20 mls/hr IV .Q24H RONY Rx#:[id number] Output: Stool 3 Other: Voiding Method Bedside Commode Bedside Commode # Voids 1 1 # Bowel Movements 2 - Exam PHYSICAL EXAMINATION: Patient is lying in the bed comfortably, no acute distress, awake alert and oriented.. HEENT: Normocephalic. Neck is supple. Pupils reactive. Nostrils clear. Oral cavity is moist. Ears reveal no drainage. Neck reveals no JVD, carotid bruits, or thyromegaly. CHEST EXAMINATION: Trachea is central. Symmetrical expansion. Lung person clear to auscultation and percussion. CARDIAC: Normal S1, S2 with no gallops. No murmurs ABDOMEN: Soft. Bowel sounds normal. No organomegaly. No abdominal bruits. Extremities: reveal no edema. No clubbing or cyanosis Neurologically awake, alert, oriented x3 with well-coordinated movements. No focal deficits noted Skin: No rash or skin lesions. Psychiatric: Coperative. Nonsuicidal Musculoskeletal: No joint swelling or deformity. Normal range of motion. - Labs CBC & Chem 7: 12/15/19 05:31 12/15/19 05:31 Labs: Abnormal Lab Results - Last 24 Hours (Table) 12/15/19 12/15/19 Range/Units 05:31 05:31 RBC 3.10 L (3.80-5.40) m/uL Hgb 9.5 L (11.4-16.0) gm/dL Hct 29.6 L (34.0-46.0) % Potassium 3.2 L (3.5-5.1) mmol/L Carbon Dioxide 32 H (22-30) mmol/L Assessment and Plan Assessment: Dark-colored stools/melena likely due to GI bleed. s/p EGD showed Acute gastritis.Colonoscopy was normal. Bright red blood per rectum. no active bleeding now. Symptomatic anemia Mild acute blood loss anemia. Paroxysmal atrial fibrillation on anticoagulation with Eliquis at home History of CVA/TIA Hypertension Chronic back pain Depression DVT prophylaxis with SCDs Plan: Patient will be started on Protonix IV twice daily and monitor H&H closely. Eliquis is on hold now due to GI b followin. S/p EGD and colonoscopy. Showed no active bleeding. Restarted Eliquis and monitor H&H. Advance diet as tolerated. Further recommendations based on clinical course. Time with Patient: Greater than 30
[2019-12-16] MEDS: HYDROcodone/APAP 7.5-325MG 1 EACH TAB PO PRN (03:50)
[2019-12-16 04:15] VITALS: BP 97/65; PULSE 63; TEMP 97.9
[2019-12-16] MEDS: LEVOTHYROXINE SODIUM 100 MCG, LEVOTHYROXINE SODIUM 75 MCG PO SCH ×2 (05:50)
[2019-12-16 06:34] LABS: Basophils % (A) 0 %; Eosinophils # (A) 0.2 k/uL (0-0.7); Eosinophils % (A) 4 %; HCT 29.5 % (34.0-46.0); HGB 9.3 gm/dL (11.4-16.0); Hypochromasia Moderate; Lymphocytes # (A) 1.2 k/uL (1.0-4.8); Lymphocytes % (A) 26 %; MCH 30.7 pg (25.0-35.0); MCHC 31.7 g/dL (31.0-37.0); Mean Platelet Volume 8.2; Monocytes # (A) 0.2 k/uL (0-1.0); Monocytes % (A) 5 %; Neutrophils # (A) 2.8 k/uL (1.3-7.7); Neutrophils % (A) 62 %; Platelet Count 169 k/uL (150-450); RBC 3.04 m/uL (3.80-5.40); RDW 14.3 % (11.5-15.5); WBC 4.5 k/uL (3.8-10.6)
[2019-12-16 06:46] LABS: African American GFR (CKD) >90 (>60 ml/min/1.73 sqM); Anion Gap 3 mmol/L; Blood Urea Nitrogen 8 mg/dL (7-17); Calcium 8.7 mg/dL (8.4-10.2); Carbon Dioxide 31 mmol/L (22-30); Chloride 102 mmol/L (98-107); Glucose 92 mg/dL (74-99); Non-African American GFR(CKD) 83 (>60 ml/min/1.73 sqM); Potassium 3.7 mmol/L (3.5-5.1); Sodium 136 mmol/L (137-145)
[2019-12-16] MEDS: FLUTICASONE 50MCG/SPRAY NASAL 16GM EA NOSTRIL SCH (08:36)
[2019-12-16] MEDS: PANTOPRAZOLE 40 MG/10 ML VIAL IVP SCH (08:37)
[2019-12-16] MEDS: METOPROLOL SUCCINATE (ER) 25 MG TAB.ER.24H PO SCH (08:39)
[2019-12-16] MEDS: PREGABALIN 75 MG CAP PO SCH (08:39)
[2019-12-16] MEDS: TROSPIUM CHLORIDE 20 MG TABLET PO SCH (08:41)
[2019-12-16] MEDS: TRIAMTERENE-HCTZ 37.5-25MG 1 EACH CAP PO SCH (08:41)
[2019-12-16] MEDS: DULoxetine HCL 20 MG CAPSULE.DR PO SCH (08:41)
[2019-12-16] MEDS ORDERED: APIXABAN 5 MG TAB PO SCH (09:00)
--- NOTE | 2019-12-16 15:47 | PN ---
PROGRESS NOTE DATE OF DICTATION: 12/16/2019 This patient is an 84-year-old pleasant white female with history of atrial fibrillation, on Eliquis, which is currently on hold. She underwent an EGD and colonoscopy because of anemia and black tarry stools. Upper endoscopy by Dr. Clemons 2 days ago was unremarkable. Colonoscopy by me yesterday was also unremarkable. She in the meantime is doing well. She did not have any further episodes of bleeding. No nausea or vomiting. No abdominal pain. PHYSICAL EXAMINATION: Appears comfortable. No apparent distress. VITAL SIGNS: Stable. Blood pressure is 135/71, temperature 98.2 and pulse rate 72. HEENT examination unremarkable. Conjunctivae pink. Sclerae anicteric. Oral cavity no lesions. NECK: No JVD or lymph node enlargement. CHEST: Clear to auscultation. HEART: Regular rate and rhythm. ABDOMEN: Soft. Bowel sounds are positive. No organomegaly. EXTREMITIES: No pedal edema. NEUROLOGIC: She is alert and oriented x3. No focal deficits. LABS: Labs from today show hemoglobin 9.5. WBC and platelets are normal. IMPRESSION: 1. Black tarry stools of 2 days; duration, status post esophagogastroduodenoscopy and colonoscopy that showed mild gastritis but normal colonoscopy. No further bleeding now. Hemoglobin remains stable. 2. History of atrial fibrillation, on anticoagulation with Eliquis that is currently on hold. 3. History of gastroesophageal reflux disease. 4. History of cerebrovascular accident and hypertension. RECOMMENDATIONS: 1. Continue with Protonix 40 mg daily. 2. Monitor CBC on a daily basis. 3. Can resume Eliquis. 4. Advance diet as tolerated. 5. She can be discharged home with outpatient followup as needed. Thank you for this consultation. MMODL / IJN: [id number] /
== END 2019-12-16 15:03 | disposition home or self-care (01) | DRG 378 ==
LOC: EC 11:07 → 5NMEDONC 12:17
PROVIDERS: ADMIT Internal Medicine; ATTEND Internal Medicine
PROC: 0DB68ZX Excision of Stomach, Via Natural or Artificial Opening Endoscopic, Diagnostic (ICD-10-PCS; principal; 2019-12-14 14:10)
PROC: 0DB98ZX Excision of Duodenum, Via Natural or Artificial Opening Endoscopic, Diagnostic (ICD-10-PCS; principal; 2019-12-14 14:10)
PROC: 0DB78ZX Excision of Stomach, Pylorus, Via Natural or Artificial Opening Endoscopic, Diagnostic (ICD-10-PCS; principal; 2019-12-14 14:10)
PROC: 0DJD8ZZ Inspection of Lower Intestinal Tract, Via Natural or Artificial Opening Endoscopic (ICD-10-PCS; 2019-12-15)
DX: K92.2 Gastrointestinal hemorrhage, unspecified (principal); D62 Acute posthemorrhagic anemia; K29.00 Acute gastritis without bleeding; K29.01 Acute gastritis with bleeding; E03.9 Hypothyroidism, unspecified; E78.5 Hyperlipidemia, unspecified; F32.9 Major depressive disorder, single episode, unspecified; G89.29 Other chronic pain; I10 Essential (primary) hypertension; I44.0 Atrioventricular block, first degree; I48.0 Paroxysmal atrial fibrillation; Z53.9 Procedure and treatment not carried out, unspecified reason; K21.9 Gastro-esophageal reflux disease without esophagitis; M54.9 Dorsalgia, unspecified; Z11.59 Encounter for screening for other viral diseases; Z79.01 Long term (current) use of anticoagulants; Z79.890 Hormone replacement therapy; Z79.899 Other long term (current) drug therapy; Z85.43 Personal history of malignant neoplasm of ovary; Z86.73 Personal history of transient ischemic attack (TIA), and cerebral infarction without residual deficits; Z90.710 Acquired absence of both cervix and uterus; Z88.0 Allergy status to penicillin; Z87.01 Personal history of pneumonia (recurrent); Z82.0 Family history of epilepsy and other diseases of the nervous system; Z82.49 Family history of ischemic heart disease and other diseases of the circulatory system; Z80.9 Family history of malignant neoplasm, unspecified
CPT/HCPCS: 36415; 43239; 45330; 45378; 80048; 80053; 82272; 83735; 84484; 85025; 85610; 85730; 86850; 86900; 86901; 87635; 88305; 93005; 96360; 96361; 99285

== ENCOUNTER → 2020-11-02 | Outpatient (CLI) | payer MEDICARE ==
--- NOTE | 2020-11-03 13:42 | CT ---
EXAMINATION TYPE: CT hip RT wo con DATE OF EXAM: 11/02/2020 COMPARISON: HISTORY: Bilateral hip pain. CT DLP: 751.60 mGycm Automated exposure control for dose reduction was used. Contrast: None Technique: Axial images 3 mm thick sections. Reconstructed images in the coronal and sagittal plane. FINDINGS: Femoral head articulates with the acetabulum. There is complete loss of joint space. Small amount sub chondral cyst formation is within the femoral head. No acute fractures are identified. Sacroiliac joint degenerative change is present on the right. Facet degenerative changes are present L4-5 and L5-S1. IMPRESSION: 1. MODERATE DEGENERATIVE CHANGES RIGHT HIP. NO ACUTE OSSEOUS ABNORMALITY IS EVIDENT.
--- NOTE | 2020-11-03 13:44 | CT ---
EXAMINATION TYPE: CT hip LT wo con DATE OF EXAM: 11/02/2020 COMPARISON: None HISTORY: Bilateral hip pain. CT DLP: 751.6 mGycm Automated exposure control for dose reduction was used. Contrast: None Technique: Axial images 3 mm thick sections. Reconstructed images in the coronal and sagittal planes. FINDINGS: There is severe loss of joint space at the left hip. This is slightly less than the comparison on the right. No femoral head deformity is evident. Sacroiliac joint degenerative changes are present. Note is made of fecal bolus at the level of the re ctum. Remaining osseous structures appear intact. IMPRESSION: 1. MODERATE LEFT HIP DEGENERATIVE CHANGES
== END | disposition home or self-care (01) ==
LOC: RADCTMAIN 11:14
PROVIDERS: ATTEND Psychiatry & Neurology Neurology
DX: M16.0 Bilateral primary osteoarthritis of hip (principal)

== ENCOUNTER → 2021-02-26 | Outpatient (CLI) | payer MEDICARE ==
--- NOTE | 2021-03-04 12:23 | MM ---
Reason for exam: screening (asymptomatic). Last mammogram was performed 2 years and 6 months ago. History: Patient is postmenopausal and has history of ovarian cancer at age 53. Family history of endometrial cancer in sister. Physical Findings: A clinical breast exam by your physician is recommended on an annual basis and results should be correlated with mammographic findings. MG 3D Screening Mammo W/Cad Bilateral CC and MLO view(s) were taken. Prior study comparison: August 31, 2018, bilateral MG 3d screening mammo w/cad. There are scattered fibroglandular densities. No significant changes when compared with prior studies. ASSESSMENT: Benign, BI-RAD 2 RECOMMENDATION: Routine screening mammogram of both breasts in 1 year.
== END | disposition home or self-care (01) ==
LOC: RADMAMWWP 14:48
PROVIDERS: ATTEND Family Medicine
DX: Z12.31 Encounter for screening mammogram for malignant neoplasm of breast (principal)
CPT/HCPCS: 77063; 77067

== ENCOUNTER 2021-06-15 13:44 | Inpatient (IN) | payer MEDICARE ==
--- NOTE | 2021-06-15 14:25 | ED ---
SOB HPI - General Chief Complaint: Shortness of Breath Stated Complaint: SOB Time Seen by Provider: 06/15/21 13:59 Source: patient Mode of arrival: wheelchair Limitations: no limitations - History of Present Illness Initial Comments: 86-year-old female with past medical history of chronic respiratory insufficiency on 3 L of home O2, A. fib on Eliquis, hypertension who presents emergency department with reported shortness of breath. Patient has had a shortness of breath, nonproductive cough and low-grade fevers at home for the past 4 days. She reports to low oxygen levels. Unsure why she requires oxygen. States that she follows with Dr. Benitez. She has been taking a prednisone taper over the past several days as she does have optic neuritis and is being treated by Dr. Man. States that the extra steroids have not helped her symptoms. She has had pneumonia before in the past and therefore states her symptoms appear to be consistent. Patient has been using her nebulizers as directed without improvement. States her has been sick. No other alleviating, precipitating or modifying factors - Related Data Home Medications Medication Instructions Recorded Confirmed Atorvastatin [Lipitor] 40 mg PO DAILY 08/17/17 06/15/21 DULoxetine HCL [Cymbalta] 20 mg PO DAILY 10/16/17 06/15/21 HYDROcodone/APAP 7.5-325MG [Hankinson 1 tab PO BID PRN 03/15/18 06/15/21 7.5-325] Ipratropium-Albuterol Nebulize 3 ml INHALATION RT-BID PRN 03/15/18 06/15/21 [Duoneb 0.5 mg-3 mg/3 ml Soln] Triamterene-Hctz 37.5-25Mg 1 cap PO DAILY 03/15/18 06/15/21 [Dyazide 37.5-25 Capsule] Apixaban [Eliquis] 5 mg PO BID 12/12/19 06/15/21 Fluticasone Nasal [place] [Flonase 1 spray EA NOSTRIL DAILY PRN 12/12/19 06/15/21 Nasal [place]] Metoprolol Succinate [Toprol XL] 25 mg PO DAILY 12/12/19 06/15/21 Clindamycin Phosp 1% Lotion 1 applic TOPICAL DAILY 06/15/21 06/15/21 Clobetasol 0.05% Solution 1 applic TOPICAL DAILY 06/15/21 06/15/21 Furosemide [Lasix] 20 mg PO DAILY 06/15/21 06/15/21 Ibuprofen [Motrin] 600 mg PO Q12H PRN 06/15/21 06/15/21 Triamcinolone 0.1% Ointment 1 applic TOPICAL DAILY 06/15/21 06/15/21 [Kenalog 0.1% Ointment] predniSONE See Taper PO DAILY 06/15/21 06/15/21 rOPINIRole HCL [Requip] 3 mg PO BID 06/15/21 06/15/21 Previous Rx's Medication Instructions Recorded Pregabalin [Lyrica] 150 mg PO BID #10 capsule 10/19/17 Allergies Allergy/AdvReac Type Severity Reaction Status Date / Time Penicillins Allergy Swelling/it Verified 06/15/21 14:57 lolis Review of Systems ROS Statement: Those systems with pertinent positive or pertinent negative responses have been documented in the HPI. ROS Other: All systems not noted in ROS Statement are negative. Past Medical History Past Medical History: Atrial Fibrillation, Cancer, CVA/TIA, Hypertension, Pneumonia Additional Past Medical History / Comment(s): chronic back pain, ovarian cancer History of Any Multi-Drug Resistant Organisms: C-DIFF Date of last positivie culture/infection: stool MDRO Source:: 1998 Past Surgical History: Back Surgery, Hernia Repair, Hysterectomy Additional Past Surgical History / Comment(s): jero knee,brain tumor removed, exp lap Past Anesthesia/Blood Transfusion Reactions: No Reported Reaction Past Psychological History: Depression Past Alcohol Use History: Rare Past Drug Use History: None Reported - Past Family History Father Family Medical History: Myocardial Infarction (SD) Mother Additional Family Medical History / Comment(s): parkinson's Sister(s) Family Medical History: Cancer General Exam Limitations: no limitations General appearance: alert, in no apparent distress Head exam: Present: atraumatic, normocephalic, normal inspection Eye exam: Present: normal appearance, PERRL, EOMI. Absent: scleral icterus, conjunctival injection, periorbital swelling ENT exam: Present: normal exam, mucous membranes moist Neck exam: Present: normal inspection. Absent: tenderness, meningismus, lymphadenopathy Respiratory exam: Present: normal lung sounds bilaterally. Absent: respiratory distress, wheezes, rales, rhonchi, stridor Cardiovascular Exam: Present: regular rate, normal rhythm, normal heart sounds. Absent: systolic murmur, diastolic murmur, rubs, gallop, clicks GI/Abdominal exam: Present: soft, normal bowel sounds. Absent: distended, tenderness, guarding, rebound, rigid Extremities exam: Present: normal inspection, full ROM, normal capillary refill. Absent: tenderness, pedal edema, joint swelling, calf tenderness Back exam: Present: normal inspection Neurological exam: Present: alert, oriented X3, CN II-XII intact Psychiatric exam: Present: normal affect, normal mood Skin exam: Present: warm, dry, intact, normal color. Absent: rash Course Vital Signs 06/15/21 06/15/21 06/15/21 13:46 13:57 17:07 Temperature 98.9 F 100.7 F H Pulse Rate 92 88 Respiratory 18 18 18 Rate Blood Pressure 136/70 141/73 O2 Sat by Pulse 92 L 96 Oximetry Medical Decision Making - Medical Decision Making Upon arrival patient placed into room 15. IV is established and laboratory studies were conducted. She is swabbed for Covid. She is saturating 94% on her 3 L without increased work of breathing. Chest x-ray performed. Patient taking Eliquis as directed without any missed doses. Patient given Tylenol for low-grade fever, Ventolin inhaler ordered. Laboratory studies reviewed which demonstrated a lactic acid of 2.3. Troponin 0.037. Covid is detected. Chest x-ray demonstrates coarse interstitial pulmonary density consistent with pulmonary fibrosis and subsegmental atelectasis which has progressed compared to old exam. As the patient is not requiring any extra oxygen she is given 6 mg of Decadron and monoclonal antibodies. Due to elevated troponin I did recommend admission for overnight observation to trend her troponins. Patient agreed with this plan. Spoke with Dr. Ferrari who agreed to admit the patient. Patient taken to floor in stable condition - Lab Data Result diagrams: 06/17/21 06:58 06/17/21 06:58 Lab Results 06/15/21 06/15/21 06/15/21 Range/Units 14:17 14:17 14:17 WBC 9.4 (3.8-10.6) k/uL RBC 5.46 H (3.80-5.40) m/uL Hgb 15.2 (11.4-16.0) gm/dL Hct 49.0 H (34.0-46.0) % MCV 89.8 (80.0-100.0) fL MCH 27.8 (25.0-35.0) pg MCHC 30.9 L (31.0-37.0) g/dL RDW 14.9 (11.5-15.5) % Plt Count 170 (150-450) k/uL MPV 9.1 Neutrophils % 89 % Lymphocytes % 5 % Monocytes % 4 % Eosinophils % 0 % Basophils % 0 % Neutrophils # 8.4 H (1.3-7.7) k/uL Lymphocytes # 0.5 L (1.0-4.8) k/uL Monocytes # 0.4 (0-1.0) k/uL Eosinophils # 0.0 (0-0.7) k/uL Basophils # 0.0 (0-0.2) k/uL PT 10.2 (9.0-12.0) sec INR 0.9 (<1.2) APTT 24.3 (22.0-30.0) sec Sodium 139 (137-145) mmol/L Potassium 4.2 (3.5-5.1) mmol/L Chloride 99 (98-107) mmol/L Carbon Dioxide 32 H (22-30) mmol/L Anion Gap 8 mmol/L BUN 19 H (7-17) mg/dL Creatinine 0.99 (0.52-1.04) mg/dL Est GFR (CKD-EPI)AfAm 60 (>60 ml/min/1.73 sqM) Est GFR (CKD-EPI)NonAf 52 (>60 ml/min/1.73 sqM) Glucose 111 H (74-99) mg/dL Lactic Ac Sepsis Rflx Plasma Lactic Acid Dandre (0.7-2.0) mmol/L Calcium 10.1 (8.4-10.2) mg/dL Magnesium 2.2 (1.6-2.3) mg/dL Total Bilirubin 0.6 (0.2-1.3) mg/dL AST 24 (14-36) U/L ALT 24 (4-34) U/L Alkaline Phosphatase 97 (38-126) U/L Troponin I (0.000-0.034) ng/mL NT-Pro-B Natriuret Pep pg/mL Total Protein 6.7 (6.3-8.2) g/dL Albumin 3.9 (3.5-5.0) g/dL Coronavirus (PCR) (Not Detectd) 06/15/21 06/15/21 06/15/21 Range/Units 14:17 14:17 14:17 WBC (3.8-10.6) k/uL RBC (3.80-5.40) m/uL Hgb (11.4-16.0) gm/dL Hct (34.0-46.0) % MCV (80.0-100.0) fL MCH (25.0-35.0) pg MCHC (31.0-37.0) g/dL RDW (11.5-15.5) % Plt Count (150-450) k/uL MPV Neutrophils % % Lymphocytes % % Monocytes % % Eosinophils % % Basophils % % Neutrophils # (1.3-7.7) k/uL Lymphocytes # (1.0-4.8) k/uL Monocytes # (0-1.0) k/uL Eosinophils # (0-0.7) k/uL Basophils # (0-0.2) k/uL PT (9.0-12.0) sec INR (<1.2) APTT (22.0-30.0) sec Sodium (137-145) mmol/L Potassium (3.5-5.1) mmol/L Chloride (98-107) mmol/L Carbon Dioxide (22-30) mmol/L Anion Gap mmol/L BUN (7-17) mg/dL Creatinine (0.52-1.04) mg/dL Est GFR (CKD-EPI)AfAm (>60 ml/min/1.73 sqM) Est GFR (CKD-EPI)NonAf (>60 ml/min/1.73 sqM) Glucose (74-99) mg/dL Lactic Ac Sepsis Rflx Plasma Lactic Acid Dandre 2.3 H* (0.7-2.0) mmol/L Calcium (8.4-10.2) mg/dL Magnesium (1.6-2.3) mg/dL Total Bilirubin (0.2-1.3) mg/dL AST (14-36) U/L ALT (4-34) U/L Alkaline Phosphatase (38-126) U/L Troponin I 0.037 H* (0.000-0.034) ng/mL NT-Pro-B Natriuret Pep 2860 pg/mL Total Protein (6.3-8.2) g/dL Albumin (3.5-5.0) g/dL Coronavirus (PCR) (Not Detectd) 06/15/21 06/15/21 Range/Units 14:17 15:20 WBC (3.8-10.6) k/uL RBC (3.80-5.40) m/uL Hgb (11.4-16.0) gm/dL Hct (34.0-46.0) % MCV (80.0-100.0) fL MCH (25.0-35.0) pg MCHC (31.0-37.0) g/dL RDW (11.5-15.5) % Plt Count (150-450) k/uL MPV Neutrophils % % Lymphocytes % % Monocytes % % Eosinophils % % Basophils % % Neutrophils # (1.3-7.7) k/uL Lymphocytes # (1.0-4.8) k/uL Monocytes # (0-1.0) k/uL Eosinophils # (0-0.7) k/uL Basophils # (0-0.2) k/uL PT (9.0-12.0) sec INR (<1.2) APTT (22.0-30.0) sec Sodium (137-145) mmol/L Potassium (3.5-5.1) mmol/L Chloride (98-107) mmol/L Carbon Dioxide (22-30) mmol/L Anion Gap mmol/L BUN (7-17) mg/dL Creatinine (0.52-1.04) mg/dL Est GFR (CKD-EPI)AfAm (>60 ml/min/1.73 sqM) Est GFR (CKD-EPI)NonAf (>60 ml/min/1.73 sqM) Glucose (74-99) mg/dL Lactic Ac Sepsis Rflx Y Plasma Lactic Acid Dandre (0.7-2.0) mmol/L Calcium (8.4-10.2) mg/dL Magnesium (1.6-2.3) mg/dL Total Bilirubin (0.2-1.3) mg/dL AST (14-36) U/L ALT (4-34) U/L Alkaline Phosphatase (38-126) U/L Troponin I (0.000-0.034) ng/mL NT-Pro-B Natriuret Pep pg/mL Total Protein (6.3-8.2) g/dL Albumin (3.5-5.0) g/dL Coronavirus (PCR) Detected A (Not Detectd) - EKG Data EKG Comments: EKG demonstrates a sinus rhythm with first-degree AV block. MS interval 244. QRS 150. QTC of 505. Right bundle branch block with left anterior fascicular block Disposition Clinical Impression: Respiratory insufficiency, Chronic respiratory failure with hypoxia, on home oxygen therapy, Elevated troponin, Lactic acidosis Disposition: ADMITTED IP TO THIS HOSP Condition: Stable Is patient prescribed a controlled substance at d/c from ED?: No Decision to Admit Reason: Admit from EC Decision Date: 06/15/21 Decision Time: 16:32
[2021-06-15 14:44] LABS: Basophils % (A) 0 %; Eosinophils % (A) 0 %; HGB 15.2 gm/dL (11.4-16.0); Lymphocytes # (A) 0.5 k/uL (1.0-4.8); Lymphocytes % (A) 5 %; MCH 27.8 pg (25.0-35.0); MCHC 30.9 g/dL (31.0-37.0); MCV 89.8 fL (80.0-100.0); Mean Platelet Volume 9.1; Monocytes # (A) 0.4 k/uL (0-1.0); Monocytes % (A) 4 %; Neutrophils # (A) 8.4 k/uL (1.3-7.7); Neutrophils % (A) 89 %; Platelet Count 170 k/uL (150-450); RBC 5.46 m/uL (3.80-5.40); RDW 14.9 % (11.5-15.5); WBC 9.4 k/uL (3.8-10.6)
[2021-06-15 14:52] LABS: Albumin 3.9 g/dL (3.5-5.0); Calcium 10.1 mg/dL (8.4-10.2); Magnesium 2.2 mg/dL (1.6-2.3); Potassium 4.2 mmol/L (3.5-5.1); Total Bilirubin 0.6 mg/dL (0.2-1.3); Total Protein 6.7 g/dL (6.3-8.2)
[2021-06-15 14:58] LABS: INR 0.9 (<1.2); Partial Thromboplastin Time 24.3 sec (22.0-30.0); Prothrombin Time 10.2 sec (9.0-12.0)
--- NOTE | 2021-06-15 15:30 | XR ---
EXAMINATION TYPE: XR chest 2V DATE OF EXAM: 06/15/2021 COMPARISON: 03/15/2018 HISTORY: Difficulty breathing TECHNIQUE: 2 views FINDINGS: There is coarse interstitial density in the lungs. There is neural stimulator in the lower thoracic spine. There is no gross heart failure. There is no pleural effusion. There are no hilar mas ses. IMPRESSION: Coarse interstitial pulmonary density consistent with pulmonary fibrosis and subsegmental atelectasis which has progressed compared to old exam. No obvious heart failure.
[2021-06-15] MEDS ORDERED: NALOXONE 0.4 MG/ML 1 ML VIAL IV PRN (16:32)
[2021-06-15] MEDS ORDERED: FLUTICASONE 50MCG/SPRAY NASAL 16GM EA NOSTRIL PRN (16:35)
[2021-06-15] MEDS ORDERED: IBUPROFEN 600 MG TAB PO PRN (16:35)
[2021-06-15] MEDS ORDERED: BAMLANIVIMAB (EUA) 700 MG, ETESEVIMAB (EUA) 1,400 MG in SODIUM CHLORIDE 0.9% 50 ML IVPB ONE (17:30)
[2021-06-15] MEDS ORDERED: SODIUM CHLORIDE 0.9% 50 ML IVPB ONE (17:30)
[2021-06-15] MEDS ORDERED: ACETAMINOPHEN TAB 325 MG TAB PO PRN (17:40)
[2021-06-15] MEDS: DEXAMETHASONE SOD PHOSPHATE 10 MG/ML 1 ML VIAL IVP SCH (18:03)
[2021-06-15 19:22] LABS: Glucose,Whole Blood 97 mg/dL (75-99)
[2021-06-15] MEDS ORDERED: diphenhydrAMINE 50 MG/ML 1 ML VIAL IVP STA (20:34)
[2021-06-15] MEDS ORDERED: diphenhydrAMINE 50 MG/ML 1 ML VIAL IVP PRN (20:34)
[2021-06-15] MEDS: ALBUTEROL HFA INHALER INHALATION SCH (20:47)
[2021-06-15] MEDS: PREGABALIN 75 MG CAP PO SCH (21:25)
[2021-06-15] MEDS: APIXABAN 5 MG TAB PO SCH (21:25)
--- NOTE | 2021-06-15 22:47 | HP ---
HISTORY AND PHYSICAL DATE OF SERVICE: 06/15/2021 CHIEF COMPLAINT: Shortness of breath. HISTORY OF PRESENT ILLNESS: This 86-year-old woman with a past medical history of atrial fibrillation, history of CVA, TIA, hypertension, history of pneumonia, being followed by Dr. Ortega in the outpatient setting, was complaining of shortness of breath which has actually been increasing over the past several days. Patient was most symptomatic for the last 3 days. The patient came to [facility] Emergency Room and was found to have lactic acid 2.3. Troponins were slightly elevated. COVID-19 was positive. Patient was admitted for further evaluation and treatment. The patient was slightly hypoxic, 91% on 3 L. The patient was given BAM. Patient had some mild response with some heated reaction. The chest x-ray which I reviewed personally showed some increased bronchial vascular markings and possible pneumonic pneumonia. There is no history of any fever, rigor or chills. No history of headache, loss of consciousness or seizures at this time. PAST MEDICAL HISTORY: History of atrial fibrillation, history of CVA, TIA, hypertension, history of pneumonia, history of C difficile. HOME MEDICATIONS: Requip, triamterene x3, metoprolol, DuoNeb, Motrin, Lasix, Flonase, Cymbalta, apixaban and Lipitor. Doses and other medications are reviewed. ALLERGIES: PENICILLIN. FAMILY HISTORY: History of myocardial infarction. SOCIAL HISTORY: No history of smoking. No history of alcohol intake. REVIEW OF SYSTEMS: ENT: Diminished hearing. Diminished vision. CARDIOVASCULAR SYSTEM: As mentioned earlier. RESPIRATORY SYSTEM: As mentioned earlier. GI: No nausea, vomiting, diarrhea. : No dysuria. NERVOUS SYSTEM: No numbness, weakness. ALLERGY/IMMUNOLOGY: As mentioned earlier. HEMATOLOGY/ONCOLOGY: No history of anemia. ENDOCRINE: No history of diabetes or hypothyroidism. CONSTITUTIONAL: As mentioned earlier. DERMATOLOGY: Negative. RHEUMATOLOGY: Negative. PSYCHIATRY: As mentioned earlier. MUSCULOSKELETAL: As mentioned earlier. PHYSICAL EXAMINATION: Patient alert and x, pulse 75, blood pressure 130/60, respiration 18, temperature 98.2, T-max 100.7, pulse ox 91% on 3 L. HEENT: Conjunctivae normal. Oral mucosa moist. NECK: No jugular venous distention. No carotid bruit. No lymph node enlargement. CARDIOVASCULAR: S1, S2 muffled. RESPIRATION: Breath sounds diminished at the bases. A few scattered rhonchi and crackles. ABDOMEN: Soft, nontender. No mass palpable. LEGS: No edema. No swelling. NERVOUS SYSTEM: Higher functions as mentioned. Moves all no 4 limbs. No focal deficit. LYMPHATICS: No lymph node palpable in neck, axillae or groin. JOINTS: No active deforming arthropathy. LABS: Labs at this time show WBC 9., hemoglobin 15.2, sodium 139, potassium 4.2. Lactic acid 2.3. ASSESSMENT: 1. Acute COVID-19 infection with acute COVID-19 bilateral interstitial pneumonia with acute hypoxic respiratory failure, present on admission. 2. Troponin 0.044, possibly secondary to COVID-19. Rule out acute sut-HE-pwqieuf- elevation myocardial infarction. 3. Elevated plasma lactic acid, possibly secondary from dehydration, present on admission. 4. History of atrial fibrillation. 5. History of cerebrovascular accident, transient ischemic attack. 6. Chronic obstructive pulmonary disease, acute exacerbation. 7. Hypertension. 8. History of pneumonia. 9. Chronic back pain. 10.History of ovarian cancer. 11.History of Clostridium difficile. 12.History of back surgery, degenerative joint disease. 13.History of hysterectomy. 14.History of depression. 15.Obesity with body mass index of 42.2. 16.NO CODE, NO CPR, NO VENT. 17.Extremely hard of hearing. RECOMMENDATIONS AND DISCUSSION: In this 86-year-old woman who presented with multiple complex medical issues, we will monitor the patient closely, optimize bronchodilator treatment. The patient has been ordered BAM from the ER. If the patient has minimal reaction to the BAM, I would also recommend pulmonary consultation. The patient might be a candidate for remdesivir. Infectious disease evaluation. I would also recommend a serum procalcitonin level. Inflammatory markers also will be checked. Cardiology will be consulted. Two-D echo will be requested. Overall prognosis is extremely guarded because of multiple complex medical issues. Further recommendations to follow. A copy of this dictation is being forwarded to Dr. Ortega, who is the primary physician. MMALIYAHL / CATHYN: [id number] / MTDD
[2021-06-16 06:48] LABS: Glucose,Whole Blood 123 mg/dL (75-99)
[2021-06-16] MEDS: ALBUTEROL HFA INHALER INHALATION SCH ×4 (07:38→19:51)
[2021-06-16] MEDS: FUROSEMIDE 20 MG TAB PO SCH (08:35)
[2021-06-16] MEDS: ATORVASTATIN 40 MG TAB PO SCH (08:35)
[2021-06-16] MEDS: APIXABAN 5 MG TAB PO SCH ×2 (08:35→20:41)
[2021-06-16] MEDS: PREGABALIN 75 MG CAP PO SCH ×2 (08:36→20:41)
[2021-06-16] MEDS: DULoxetine HCL 20 MG CAPSULE.DR PO SCH (08:36)
[2021-06-16] MEDS: DEXAMETHASONE SOD PHOSPHATE 10 MG/ML 1 ML VIAL IVP SCH (08:36)
[2021-06-16] MEDS: TRIAMTERENE-HCTZ 37.5-25MG 1 EACH CAP PO SCH (08:36)
[2021-06-16] MEDS: CLINDAMYCIN PHOSP 1% TOPICAL SCH (08:54)
[2021-06-16] MEDS: CLOBETASOL 0.05% TOPICAL SCH (08:54)
[2021-06-16] MEDS ORDERED: METOPROLOL SUCCINATE (ER) 25 MG TAB.ER.24H PO SCH (09:00)
[2021-06-16 09:10] LABS: Basophils % (A) 0 %; Eosinophils % (A) 0 %; HCT 49.6 % (34.0-46.0); HGB 15.4 gm/dL (11.4-16.0); Hypochromasia Slight; Lymphocytes % (A) 12 %; MCH 28.8 pg (25.0-35.0); MCHC 31.1 g/dL (31.0-37.0); MCV 92.5 fL (80.0-100.0); Mean Platelet Volume 9.3; Monocytes # (A) 0.3 k/uL (0-1.0); Monocytes % (A) 4 %; Neutrophils # (A) 7.3 k/uL (1.3-7.7); Neutrophils % (A) 84 %; Platelet Count 154 k/uL (150-450); RBC 5.36 m/uL (3.80-5.40); RDW 14.8 % (11.5-15.5); WBC 8.7 k/uL (3.8-10.6)
[2021-06-16 09:22] LABS: Albumin 3.7 g/dL (3.5-5.0); Calcium 9.6 mg/dL (8.4-10.2); Potassium 4.4 mmol/L (3.5-5.1); Total Bilirubin 0.7 mg/dL (0.2-1.3); Total Protein 6.5 g/dL (6.3-8.2)
[2021-06-16 11:44] LABS: Glucose,Whole Blood 98 mg/dL (75-99)
--- NOTE | 2021-06-16 12:24 | CONS ---
CONSULTATION Mrs. Payton Ridley is an 86-year-old elderly lady with a known history of paroxysmal atrial fibrillation, mild right aortic stenosis, typical atrial flutter, paroxysmal in nature, a known right bundle branch block pattern. She came into the hospital with increasing shortness of breath, not feeling well, and also had a nonproductive cough and low-grade fever. She has been taking prednisone taper over the last few days because of optic neuritis under the care of Dr. Man; however, after arrival she was found to be COVID positive and also laboratory data suggested elevated troponin; and therefore I am seeing her. She has no chest discomfort. Her symptoms of fatigue, shortness of breath and cough seem to be improving. There is a suggestion of some pulmonary fibrosis on the chest x-ray; no significant evidence of pneumonia. Patient is in sinus rhythm, seems to be reasonably comfortable at the time of my evaluation. PAST MEDICAL HISTORY: 1. Paroxysmal atrial fibrillation. 2. History of mild aortic stenosis. 3. History of hypertension. 4. Hyperlipidemia. 5. No evidence of any significant CAD based on a cardiac catheterization about 10 years ago. MEDICATIONS: Her medications at home include atorvastatin 40 mg daily, Colace, Eliquis 5 mg b.i.d., metoprolol succinate 25 mg daily, Synthroid 175 mcg daily, Lasix 40 mg daily. ALLERGIES: PENICILLIN. Echocardiogram performed in the office in June 2020 revealed ejection fraction of 60% with moderate pulmonary hypertension, right-sided pressures of 55 mmHg and enlarged atria. At the time of my evaluation, she is reasonably comfortable. Physical exam revealed blood pressure 150/80, pulse rate of 70 per minute, regular. JVD 1 cm. No carotid bruit. S1-S2 heard normally. Short systolic murmur at the base is audible. Lungs reveal bilateral fine rales. Abdomen is soft. Lower extremities reveal diminished pulses. Central nervous system: Grossly no focal deficit. IMPRESSION: 1. Acute COVID infection. 2. Mild aortic stenosis. 3. Paroxysmal atrial fibrillation. 4. History of noncritical coronary artery disease. RECOMMENDATIONS: I am recommending that we will increase the metoprolol tartrate to 25 mg tablet three times a day and continue all her other medications, obtain echocardiogram to reassess LV function. Further management by Pulmonology and admitting doctor. Thank you very much for the consult. MMODL / IJN: [id number] /
[2021-06-16] MEDS: METOPROLOL TARTRATE 25 MG TAB PO SCH ×2 (16:02→20:50)
[2021-06-16] MEDS ORDERED: REMDESIVIR 200 MG in SODIUM CHLORIDE 0.9% 250 ML IVPB ONE (18:00)
--- NOTE | 2021-06-16 21:09 | PN ---
PROGRESS NOTE DATE OF SERVICE: 06/16/2021 This 86-year-old woman who was admitted with shortness of breath and acute Covid 19 pneumonia is being closely monitored. Patient received BAM yesterday. No chest pain. No palpitations. No fever. The patient received some Benadryl along with BAM for some adverse reaction, but no allergies suspected at this time. Troponins elevated up to 0.063. Multiple consultants are following the patient closely. Cardiology has seen the patient and recommended continue the current medications. No chest pain. No palpitations. No fever. Continue the beta blockers. PHYSICAL EXAMINATION: Alert and oriented x3. Pulse is 80, blood pressure is 133/66, respiration 24, temperature 98.4, pulse ox 98% on 3 L. HEENT: Conjunctivae normal. Neck: No JVD. Cardiovascular: S1, S2 muffled. Respirations: Breath sounds diminished in the basis. A few scattered rhonchi. ABDOMEN: Soft, nontender. Nervous system: No focal deficits. CBC within normal limits. Glucose 123. ASSESSMENT: 1. Acute Covid 19 infection with acute Covid 19 bilateral interstitial pneumonia with acute hypoxic respiratory failure present on admission. 2. Troponin 0.4, possibly secondary to Covid 19, acute vtr-KI-dbffeoc-elevation myocardial infarction unlikely per Cardiology. 3. Elevated plasma lactic acid, possibly secondary from dehydration, present on admission. 4. Status post BAM. 5. History of atrial fibrillation. 6. History of cerebrovascular accident/ transient ischemic attack. 7. Chronic obstructive pulmonary disease acute exacerbation. 8. Hypertension. 9. History of pneumonia. 10.Chronic back pain. 11.History of ovarian cancer. 12.History of C difficile colitis. 13.History of back surgery, degenerative joint disease. 14.Hysterectomy. 15.History of depression. 16.Obesity with body mass index of 42.2. 17.Extremely hard of hearing. 18.NO CODE, NO CPR, NO VENT. RECOMMENDATIONS AND DISCUSSION: I recommend to continue current medications, management and symptomatic treatment. Closely follow with Cardiology and Infectious Disease. Guarded prognosis because of multiple complex medical issues. The patient appears to be saturating well. Chest x- ray which was done at the time of admission showed bilateral pneumonia. D-dimer is okay. I would also recommend a CT scan of the chest without I would also recommend continue with current medications. Remdesivir was also initiated by Dr. Allen. MMODL / STEVAN: [id number] / LELIA
--- NOTE | 2021-06-17 08:42 | P.CONS ---
History of Present Illness - Reason for Consult Consult date: 06/16/21 covid 19 pneumonia Requesting physician: Anibal Ferrari - Chief Complaint shortness of breath and cough x 4 days - History of Present Illness History of present illness : Patient is 86-year-old female with a past medical history for atrial fibrillation presenting to the ER for evaluation of increasing shortness of breath cough which has been moderate intensity not bringing up any sputum and did have low-grade fever the patient symptom has going on for about 4 days before presentation to the hospital patient apparently has been on a tapering course of oral steroids in the outpatient setting being treated for optic neuritis by her neurologist however the patient did have a no improvement in her symptoms with progressive worsening shortness of breath and cough patient did present to the hospital on arrival to the ER the patient did have fever 100.7 F patient was hypoxic with O2 sats of 92% currently 94% on 4 L nasal cannula patient did have a normal white count with lymphopenia D-dimer was normal patient did have a normal creatinine there was observed normal protein S was normal patient did have positive Covid test and a chest x-ray coarse interstitial pulmonary density consistent with pulmonary fibrosis and atelectasis that has progressed compared to old exam patient was admitted to hospital infectious he was consulted for COVID-19 infection and need for remdesivir Review of system: CONSTITUTIONAL: Positive for weakness along with the fever. EYES: No complaint. ENT: No complaint. RESPIRATORY: As per history of present illness. CARDIOVASCULAR: No complaint. GENITOURINARY: No complaint. GASTROINTESTINAL: No complaint. MUSCULOSKELETAL: No complaint. INTEGUMENTARY: No complaint. PSYCHOLOGIC: No complaint. ENDOCRINE: No complaint. NEUROLOGIC: No complaint. Past medical history : Reviewed, documented below Past surgical history : Reviewed, documented below Social history: Reviewed, documented below Medications: Reviewed, as documented below EXAMINATION: Vital sigans= Reviewed and documented below GENERAL DESCRIPTION: Elderly female up in the chair, no distress. No tachypnea or accessory muscle of respiration use. HEENT: Shows Pallor , no scleral icterus. Oral mucous membrane is dry. NECK: Trachea central, no thyromegaly. LUNGS: Unlabored breathing. Coarse breath sounds bilaterally. No wheeze or crackle. HEART: S1, S2, regular rate and rhythm. ABDOMEN: Soft, no tenderness , guarding or rigidity EXTREMITIES: No edema of feet. SKIN: No rash, no masses palpable. NEUROLOGICAL: The patient is awake, alert, oriented x3, mood and affect normal. LABS AND RADIOLOGY: Reviewed results see below Assessment : Patient presented to hospital with increasing shortness of breath and cough along with a fever symptom has been going on for about 4 days in this patient with underlying pulmonary fibrosis with progression of the interstitial infiltrate seen on the chest x-ray and did have hypoxemia patient is currently within the therapeutic window for remdesivir and no clinical suspicion for secondary bacterial pneumonia Plan: 1-patient will be started on remdesivir per protocol 5-day course 2-patient to continue with Eliquis dexamethasone zinc and ascorbic acid 3-droplet isolation and respiratory support We will follow on clinical condition and cultures to further adjust medication if needed Thank you for this consultation we will follow the patient along with you Past Medical History Past Medical History: Atrial Fibrillation, Cancer, CVA/TIA, Hypertension, Pneumonia Additional Past Medical History / Comment(s): chronic back pain, ovarian cancer History of Any Multi-Drug Resistant Organisms: C-DIFF Year Discovered:: stool MDRO Source:: 1998 Past Surgical History: Back Surgery, Hernia Repair, Hysterectomy Additional Past Surgical History / Comment(s): jero knee,brain tumor removed, exp lap Past Anesthesia/Blood Transfusion Reactions: No Reported Reaction Past Psychological History: Depression Past Alcohol Use History: Rare Past Drug Use History: None Reported - Past Family History Father Family Medical History: Myocardial Infarction ([place]) Mother Additional Family Medical History / Comment(s): parkinson's Sister(s) Family Medical History: Cancer Medications and Allergies Home Medications Medication Instructions Recorded Confirmed Type Atorvastatin [Lipitor] 40 mg PO DAILY 08/17/17 06/15/21 History DULoxetine HCL [Cymbalta] 20 mg PO DAILY 10/16/17 06/15/21 History Pregabalin [Lyrica] 150 mg PO BID #10 capsule 10/19/17 06/15/21 Rx HYDROcodone/APAP 7.5-325MG [Cl[place]ton 1 tab PO BID PRN 03/15/18 06/15/21 History 7.5-325] Ipratropium-Albuterol Nebulize 3 ml INHALATION RT-BID PRN 03/15/18 06/15/21 History [Duoneb 0.5 mg-3 mg/3 ml Soln] Triamterene-Hctz 37.5-25Mg 1 cap PO DAILY 03/15/18 06/15/21 History [Dyazide 37.5-25 Capsule] Apixaban [Eliquis] 5 mg PO BID 12/12/19 06/15/21 History Fluticasone Nasal [place] [Flonase 1 spray EA NOSTRIL DAILY PRN 12/12/19 06/15/21 History Nasal [place]] Metoprolol Succinate [Toprol XL] 25 mg PO DAILY 12/12/19 06/15/21 History Clindamycin Phosp 1% Lotion 1 applic TOPICAL DAILY 06/15/21 06/15/21 History Clobetasol 0.05% Solution 1 applic TOPICAL DAILY 06/15/21 06/15/21 History Furosemide [Lasix] 20 mg PO DAILY 06/15/21 06/15/21 History Ibuprofen [Motrin] 600 mg PO Q12H PRN 06/15/21 06/15/21 History Triamcinolone 0.1% Ointment 1 applic TOPICAL DAILY 06/15/21 06/15/21 History [Kenalog 0.1% Ointment] predniSONE See Taper PO DAILY 06/15/21 06/15/21 History rOPINIRole HCL [Requip] 3 mg PO BID 06/15/21 06/15/21 History Allergies Allergy/AdvReac Type Severity Reaction Status Date / Time Penicillins Allergy Swelling/it Verified 06/15/21 14:57 lolis Physical Exam Vitals: Vital Signs Temp Pulse Pulse Resp BP BP Pulse Ox 06/16/21 08:00 98.1 F 77 24 153/78 92 L 06/16/21 04:00 98.0 F 65 18 129/63 92 L 06/15/21 23:21 97.6 F 73 18 147/65 92 L 06/15/21 19:48 98.4 F 75 18 134/62 91 L 06/15/21 18:32 98.3 F 79 20 142/60 94 L 06/15/21 17:07 100.7 F H 88 18 141/73 96 06/15/21 13:57 18 06/15/21 13:46 98.9 F 92 18 136/70 92 L Intake and Output 06/15/21 06/16/21 06/16/21 22:59 06:59 14:59 Intake Total 360 10 Balance 360 10 Intake: IV 10 Invasive Line 1 10 Oral 360 Other: # Voids 0 1 3 # Bowel Movements 1 Weight 104.326 kg 113 kg Results CBC & Chem 7: 06/16/21 07:22 06/16/21 07:22 Labs: Abnormal Lab Results - Last 24 Hours (Table) 06/15/21 06/15/21 06/15/21 Range/Units 14:17 14:17 14:17 RBC 5.46 H (3.80-5.40) m/uL Hct 49.0 H (34.0-46.0) % MCHC 30.9 L (31.0-37.0) g/dL Neutrophils # 8.4 H (1.3-7.7) k/uL Lymphocytes # 0.5 L (1.0-4.8) k/uL Carbon Dioxide 32 H (22-30) mmol/L BUN 19 H (7-17) mg/dL Glucose 111 H (74-99) mg/dL POC Glucose (mg/dL) (75-99) mg/dL Plasma Lactic Acid Dandre 2.3 H* (0.7-2.0) mmol/L Troponin I (0.000-0.034) ng/mL Coronavirus (PCR) (Not Detectd) 06/15/21 06/15/21 06/15/21 Range/Units 14:17 14:17 17:45 RBC (3.80-5.40) m/uL Hct (34.0-46.0) % MCHC (31.0-37.0) g/dL Neutrophils # (1.3-7.7) k/uL Lymphocytes # (1.0-4.8) k/uL Carbon Dioxide (22-30) mmol/L BUN (7-17) mg/dL Glucose (74-99) mg/dL POC Glucose (mg/dL) (75-99) mg/dL Plasma Lactic Acid Dandre (0.7-2.0) mmol/L Troponin I 0.037 H* 0.044 H* (0.000-0.034) ng/mL Coronavirus (PCR) Detected A (Not Detectd) 06/15/21 06/16/21 06/16/21 Range/Units 20:46 06:21 07:22 RBC (3.80-5.40) m/uL Hct 49.6 H (34.0-46.0) % MCHC (31.0-37.0) g/dL Neutrophils # (1.3-7.7) k/uL Lymphocytes # (1.0-4.8) k/uL Carbon Dioxide (22-30) mmol/L BUN (7-17) mg/dL Glucose (74-99) mg/dL POC Glucose (mg/dL) 123 H (75-99) mg/dL Plasma Lactic Acid Dandre (0.7-2.0) mmol/L Troponin I 0.063 H* (0.000-0.034) ng/mL Coronavirus (PCR) (Not Detectd) 06/16/21 Range/Units 07:22 RBC (3.80-5.40) m/uL Hct (34.0-46.0) % MCHC (31.0-37.0) g/dL Neutrophils # (1.3-7.7) k/uL Lymphocytes # (1.0-4.8) k/uL Carbon Dioxide (22-30) mmol/L BUN (7-17) mg/dL Glucose 123 H (74-99) mg/dL POC Glucose (mg/dL) (75-99) mg/dL Plasma Lactic Acid Dandre (0.7-2.0) mmol/L Troponin I (0.000-0.034) ng/mL Coronavirus (PCR) (Not Detectd)
[2021-06-17 08:54] LABS: Basophils % (A) 0 %; Eosinophils % (A) 0 %; HCT 48.4 % (34.0-46.0); HGB 14.9 gm/dL (11.4-16.0); Lymphocytes # (A) 1.4 k/uL (1.0-4.8); Lymphocytes % (A) 10 %; MCH 28.4 pg (25.0-35.0); MCHC 30.9 g/dL (31.0-37.0); MCV 92.1 fL (80.0-100.0); Monocytes # (A) 0.4 k/uL (0-1.0); Monocytes % (A) 3 %; Neutrophils # (A) 12.1 k/uL (1.3-7.7); Neutrophils % (A) 87 %; Platelet Count 204 k/uL (150-450); RBC 5.25 m/uL (3.80-5.40); WBC 13.9 k/uL (3.8-10.6)
[2021-06-17] MEDS: ALBUTEROL HFA INHALER INHALATION SCH ×4 (09:14→21:33)
[2021-06-17 09:19] LABS: Calcium 9.5 mg/dL (8.4-10.2); Potassium 4.1 mmol/L (3.5-5.1)
[2021-06-17] MEDS: ATORVASTATIN 40 MG TAB PO SCH (10:12)
[2021-06-17] MEDS: TRIAMTERENE-HCTZ 37.5-25MG 1 EACH CAP PO SCH (10:12)
[2021-06-17] MEDS: PREGABALIN 75 MG CAP PO SCH ×2 (10:12→19:58)
[2021-06-17] MEDS: FUROSEMIDE 20 MG TAB PO SCH (10:13)
[2021-06-17] MEDS: METOPROLOL TARTRATE 25 MG TAB PO SCH ×2 (10:13→19:58)
[2021-06-17] MEDS: APIXABAN 5 MG TAB PO SCH ×2 (10:13→19:58)
[2021-06-17] MEDS: DULoxetine HCL 20 MG CAPSULE.DR PO SCH (10:13)
[2021-06-17] MEDS: DEXAMETHASONE SOD PHOSPHATE 10 MG/ML 1 ML VIAL IVP SCH (10:13)
[2021-06-17] MEDS: CLOBETASOL 0.05% TOPICAL SCH (10:14)
[2021-06-17] MEDS: CLINDAMYCIN PHOSP 1% TOPICAL SCH (10:14)
--- NOTE | 2021-06-17 10:18 | ECHOF ---
Referral Reason:nstemi MEASUREMENTS -------- HEIGHT: 157.5 cm WEIGHT: 99.8 kg BP: 153/67 RVIDd: 3.0 cm (< 3.3) IVSd: 1.9 cm (0.6 - 1.1) LVIDd: 4.0 cm (3.9 - 5.3) LVPWd: 1.7 cm (0.6 - 1.1) IVSs: 2.1 cm LVIDs: 3.1 cm LVPWs: 1.6 cm LA Diam: 3.5 cm (2.7 - 3.8) LAESV Index (A-L): 36.66 ml/m Ao Diam: 3.4 cm (2.0 - 3.7) AV Cusp: 1.3 cm (1.5 - 2.6) MV EXCURSION: 11.800 mm (> 18.000) MV EF SLOPE: 13 mm/s (70 - 150) EPSS: 0.8 cm MV E Ari: 0.96 m/s MV DecT: 496 ms MV A Ari: 1.26 m/s MV E/A Ratio: 0.76 AV maxP.70 mmHg AV meanP.08 mmHg FINDINGS -------- Sinus rhythm. This was a technically difficult study with suboptimal views. The left ventricular size is normal. There is severe concentric left ventricular hypertrophy. Ove rall left ventricular systolic function is normal with, an EF between 60 - 65 %. The right ventricle is normal in size. LA is moderately dilated 34-39 ml/m2 The right atrium is normal in size. Interatrial and interventricular septum intact. There is moderate to severe aortic valve sclerosis. There is moderate aortic stenosis present. Pe ak/mean gradient across the Aortic Valve is 48.70mmHg / 29.08mmHg. The mitral valve leaflets are mildly thickened. Moderate mitral annular calcification present. Mi [id number] mitral regurgitation is present. Unable to estimate RVSP due to inadequate TR jet spectral doppler profile. Trace/mild (physiologic) pulmonic regurgitation. The aortic root size is normal. Normal inferior vena cava with normal inspiratory collapse consistent with estimated right atrial pre ssure of 5 mmHg. There is no pericardial effusion. CONCLUSIONS -------- 1. The left ventricular size is normal. 2. There is severe concentric left ventricular hypertrophy. 3. Overall left ventricular systolic function is normal with, an EF between 60 - 65 %. 4. LA is moderately dilated 34-39 ml/m2 5. There is moderate to severe aortic valve sclerosis. 6. There is moderate aortic stenosis present. 7. Peak/mean gradient across the Aortic Valve is 48.70mmHg / 29.08mmHg. 8. The mitral valve leaflets are mildly thickened. 9. Moderate mitral annular calcification present. 10. Elym-lg-yzlojnhs mitral regurgitation is present. 11. Trace/mild (physiologic) pulmonic regurgitation. 12. There is no pericardial effusion. STEAMTABLE WORKER: Rosalia Bang RDCS
--- NOTE | 2021-06-17 12:12 | P.PN ---
Subjective This is a 36-year-old female with a past medical history of paroxysmal atrial fibrillation, typical atrial flutter, mild aortic stenosis, right bundle-branch block, occasional PVCs, hypertension, dyslipidemia, nonobstructive coronary artery disease. She follows in the office with Dr. Watts. Cardiology was consulted for elevated troponin. (0.03, 0.04, 0.06) Patient presented emergency department with worsening shortness of breath, not feeling well, nonproductive cough and a low-grade fever. She was found to be COVID-19 positive. Patient seen and examined at bedside, she continues to have a nonproductive cough and shortness of breath. She states her breathing has improved from yesterday. She denies any chest pain. Telemetry reviewed patient is maintaining sinus mechanism heart rate 5570s. Echocardiogram revealed EF of 6065 percent, moderate aortic stenosis the peak/meangradient of 48 mmHg/29 mmHg, mild to moderate mitral regurgitation. She's currently maintained on metoprolol titrate 25 mg 3 times a day, Eliquis 5 mg twice a day, atorvastatin 40 mg daily, PO Lasix 20 mg daily. Vitals: Reviewed Full physical examination not completed to reduce covid-19 exposure GENERAL: In no acute distress +Cough NECK: Supple without JVD LUNGS: Respiration equal and unlabored. EXTREMITIES: Normal range of motion, no edema. ASSESSMENT Mildly Elevated troponin, not indicative of acute coronary syndrome. EKG with no evidence of ischemia. Echocardiogram with normal EF Covid-19 infection Moderate aortic stenosis Paroxysmal atrial fibrillation on ELiquis History of typical atrial flutter Right bundle branch block Hypertension Dyslipidemia Non-obstructive coronary artery disease PLAN Decrease metoprolol to 25mg BID Continue cardiac telemetry Continue Eliquis 5 mg twice a day Continue atorvastatin 40 mg daily Continue supportive care for covid-19 infection Encourage incentive spirometry Rest of management per primary and pulmonary Further recommendations based on clinical course Objective - Vital Signs Vital signs: Vital Signs Temp 98 F 06/17/21 10:15 Pulse 65 06/17/21 10:15 Resp 19 06/17/21 10:15 BP 156/73 06/17/21 10:15 Pulse Ox 94 L 06/17/21 10:15 Intake & Output 06/16/21 06/17/21 06/17/21 18:59 06:59 18:59 Intake Total 138 200 Output Total 500 Balance 138 -500 200 Weight 100 kg Intake: IV 20 Invasive Line 1 20 Oral 118 200 Output: Urine 500 Other: Voiding Method Toilet Toilet # Voids 3 0 # Bowel Movements 1 - Labs CBC & Chem 7: 06/17/21 06:58 06/17/21 06:58 Labs: Abnormal Lab Results - Last 24 Hours (Table) 06/17/21 06/17/21 Range/Units 06:58 06:58 WBC 13.9 H (3.8-10.6) k/uL Hct 48.4 H (34.0-46.0) % MCHC 30.9 L (31.0-37.0) g/dL Neutrophils # 12.1 H (1.3-7.7) k/uL BUN 23 H (7-17) mg/dL
--- NOTE | 2021-06-17 16:57 | PN ---
PROGRESS NOTE DATE OF SERVICE: 06/17/2021. This 86-year-old woman who was admitted with acute Covid 19 infection and acute Covid 19 bilateral interstitial pneumonia is being closely monitored at this time. The patient is receiving Remdesivir. No chest pain. No palpitations. No fever. PHYSICAL EXAMINATION: Alert and oriented times three. Pulse is 62, blood pressure 140/67, respiration 18, temperature 98.1, pulse ox 91% on 6 L. HEENT: Conjunctivae normal. Neck: No JVD. Cardiovascular: S1, S2 muffled. Respirations: Breath sounds diminished in the bases. Scattered rhonchi and crackles. Abdomen: Soft, nontender. LEGS are no edema. No swelling. Nervous system: No focal deficits. LABS: WBC 13.9. ASSESSMENT: 1. Acute Covid 19 infection with acute Covid 19 bilateral interstitial pneumonia with acute hypoxic respiratory failure present on admission. 2. Troponin 0.04, possibly secondary to Covid 19 with acute pny-MX-dhummaj elevation myocardial infarction unlikely per Cardiology. 3. Elevated plasma lactic acid, possibly secondary from dehydration, present on admission. 4. Status post BAM. 5. History of atrial fibrillation. 6. On Remdesivir. 7. History of cerebrovascular accident, transient ischemic attack. 8. Chronic obstructive pulmonary disease, acute exacerbation. 9. Hypertension. 10.History of pneumonia. 11.History of chronic low back pain. 12.History of ovarian cancer. 13.History of C difficile colitis. 14.History of back surgery, degenerative joint disease. 15.Hysterectomy. 16.History of depression. 17.Obesity with body mass index of 42.2. 18.Extremely hard of hearing. 19.NO CODE, NO CPR, NO VENT. RECOMMENDATIONS AND DISCUSSION: I recommend to continue current medications, and symptomatic treatment. Continue with bronchodilators. Continue the Remdesivir. Continue the rest of medications. Closely follow with Pulmonary, Infectious Disease. Guarded prognosis. Further recommendations to follow. MMODL / IJN: [id number] /
--- NOTE | 2021-06-17 18:10 | P.CNPUL ---
History of Present Illness Consult date: 06/17/21 Reason for consult: dyspnea, cough, hypoxemia Chief complaint: Shortness of breath History of present illness: Patient is a 86-year-old female with a history of chronic hypoxic history failure chronic oxygen therapy at home, usually she is on 3 L nasal cannula, she has other active medical problems ongoing associated with chronic atrial fibrillation on the direct oral anticoagulation hypertension hypertensive cardiovascular disease sleep-disordered breathing and sleep apnea symptoms of progressive for the last 4 days, she is requiring more oxygen than baseline her oral course of prednisone without any relief came into the hospital for further evaluation and intervention and treatment, her admit x-ray is significant for bilateral interstitial infiltrate streaky nature with pulmonary fibrosis, significant for significant LVH, ejection fraction is 60%, dilated left atria, moderate to severe aortic sclerosis and aortic stenosis, Workup in the emergency department has been significant for lactic acidosis with a lactic acid of 2.3, elevated troponin, COVID-19 came back positive, patient is status post IV antibiotic infusion, being continued on bronchodilator along with oral diuretic anticoagulation with IV steroids in the form Decadron 6 mg daily, she is getting IV in remesivir infusion as well per protocol Review of Systems All systems: negative Past Medical History Past Medical History: Atrial Fibrillation, Cancer, CVA/TIA, Hypertension, Pneumonia Additional Past Medical History / Comment(s): chronic back pain, ovarian cancer History of Any Multi-Drug Resistant Organisms: C-DIFF Date of last positivie culture/infection: stool MDRO Source:: 1998 Past Surgical History: Back Surgery, Hernia Repair, Hysterectomy Additional Past Surgical History / Comment(s): jero knee,brain tumor removed, exp lap Past Anesthesia/Blood Transfusion Reactions: No Reported Reaction Past Psychological History: Depression Past Alcohol Use History: Rare Past Drug Use History: None Reported - Past Family History Father Family Medical History: Myocardial Infarction ([place]) Mother Additional Family Medical History / Comment(s): parkinson's Sister(s) Family Medical History: Cancer Medications and Allergies Home Medications Medication Instructions Recorded Confirmed Type Atorvastatin [Lipitor] 40 mg PO DAILY 08/17/17 06/15/21 History DULoxetine HCL [Cymbalta] 20 mg PO DAILY 10/16/17 06/15/21 History Pregabalin [Lyrica] 150 mg PO BID #10 capsule 10/19/17 06/15/21 Rx HYDROcodone/APAP 7.5-325MG [[place] 1 tab PO BID PRN 03/15/18 06/15/21 History 7.5-325] Ipratropium-Albuterol Nebulize 3 ml INHALATION RT-BID PRN 03/15/18 06/15/21 History [Duoneb 0.5 mg-3 mg/3 ml Soln] Triamterene-Hctz 37.5-25Mg 1 cap PO DAILY 03/15/18 06/15/21 History [Dyazide 37.5-25 Capsule] Apixaban [Eliquis] 5 mg PO BID 12/12/19 06/15/21 History Fluticasone Nasal [place] [Flonase 1 spray EA NOSTRIL DAILY PRN 12/12/19 06/15/21 History Nasal [place]] Metoprolol Succinate [Toprol XL] 25 mg PO DAILY 12/12/19 06/15/21 History Clindamycin Phosp 1% Lotion 1 applic TOPICAL DAILY 06/15/21 06/15/21 History Clobetasol 0.05% Solution 1 applic TOPICAL DAILY 06/15/21 06/15/21 History Furosemide [Lasix] 20 mg PO DAILY 06/15/21 06/15/21 History Ibuprofen [Motrin] 600 mg PO Q12H PRN 06/15/21 06/15/21 History Triamcinolone 0.1% Ointment 1 applic TOPICAL DAILY 06/15/21 06/15/21 History [Kenalog 0.1% Ointment] predniSONE See Taper PO DAILY 06/15/21 06/15/21 History rOPINIRole HCL [Requip] 3 mg PO BID 06/15/21 06/15/21 History Allergies Allergy/AdvReac Type Severity Reaction Status Date / Time Penicillins Allergy Swelling/it Verified 06/15/21 14:57 lolis Physical Exam Vitals: Vital Signs Temp Pulse Resp BP BP Pulse Ox 06/17/21 17:06 98.2 F 57 L 17 118/58 91 L 06/17/21 13:13 98 F 62 19 148/67 91 L 06/17/21 10:15 98 F 65 19 156/73 94 L 06/17/21 04:35 98.1 F 55 L 24 153/67 94 L 06/16/21 23:55 98.2 F 60 22 143/75 92 L 06/16/21 20:40 98.4 F 67 24 137/70 93 L Intake and Output 06/17/21 06/17/21 06/17/21 06:59 14:59 22:59 Intake Total 500 Output Total 500 Balance -500 500 Intake: Oral 500 Output: Urine 500 Other: Voiding Method Toilet Toilet # Voids 0 250 Weight 100 kg - Constitutional General appearance: disheveled, mild distress, morbidly obese - EENT Eyes: PERRLA Ears: bilateral: normal - Neck Neck: normal ROM Carotids: bilateral: upstroke normal Thyroid: bilateral: normal size - Respiratory Respiratory: bilateral: diminished - Cardiovascular Rhythm: regular Heart sounds: normal: S1, S2 - Gastrointestinal General gastrointestinal: decreased bowel sounds, distended - Neurologic Neurologic: CNII-XII intact - Musculoskeletal Musculoskeletal: gait normal, generalized weakness - Psychiatric Psychiatric: A&O x's 3, appropriate affect, intact judgment & insight Results - Laboratory Findings CBC and BMP: 06/17/21 06:58 06/17/21 06:58 PT/INR, D-dimer PT 10.2 sec (9.0-12.0) 06/15/21 14:17 INR 0.9 (<1.2) 06/15/21 14:17 D-Dimer 0.20 mg/L FEU (<0.60) 06/15/21 19:50 Abnormal lab findings: Abnormal Labs 06/15/21 06/15/21 06/15/21 14:17 14:17 14:17 WBC RBC 5.46 H Hct 49.0 H MCHC 30.9 L Neutrophils # 8.4 H Lymphocytes # 0.5 L Carbon Dioxide 32 H BUN 19 H Glucose 111 H POC Glucose (mg/dL) Plasma Lactic Acid Dandre 2.3 H* Troponin I Coronavirus (PCR) 06/15/21 06/15/21 06/15/21 14:17 14:17 17:45 WBC RBC Hct MCHC Neutrophils # Lymphocytes # Carbon Dioxide BUN Glucose POC Glucose (mg/dL) Plasma Lactic Acid Dandre Troponin I 0.037 H* 0.044 H* Coronavirus (PCR) Detected A 06/15/21 06/16/21 06/16/21 20:46 06:21 07:22 WBC RBC Hct 49.6 H MCHC Neutrophils # Lymphocytes # Carbon Dioxide BUN Glucose POC Glucose (mg/dL) 123 H Plasma Lactic Acid Dandre Troponin I 0.063 H* Coronavirus (PCR) 06/16/21 06/17/21 06/17/21 07:22 06:58 06:58 WBC 13.9 H RBC Hct 48.4 H MCHC 30.9 L Neutrophils # 12.1 H Lymphocytes # Carbon Dioxide BUN 23 H Glucose 123 H POC Glucose (mg/dL) Plasma Lactic Acid Dandre Troponin I Coronavirus (PCR) - Diagnostic Findings Chest x-ray: report reviewed, image reviewed Assessment and Plan Assessment: Acute on chronic hypoxic history failure Acute COVID-19 pneumonia Sleep disorder breathing and sleep apnea Moderate aortic stenosis Sepsis due to COVID-19 pneumonia Chronic atrial fibrillation on anticoagulation with direct oral anticoagulants Chronic multiple medical problems including prior history of CVA, TIA, COPD, hypertension, chronic back pain, ovarian cancer, C. difficile colitis, depression, severe morbid obesity, extremely hard of hearing Plan: Patient is being appropriately treated with IV Decadron, IV REMdesivir, bronchodilator, and anticoagulation with direct oral anticoagulant Patient is advise if BiPAP machine from home can be brought brought in so she can use it each night and when necessary during day Repeat chest x-ray Follow closely Time with Patient: Greater than 30
[2021-06-17] MEDS: REMDESIVIR 100 MG in SODIUM CHLORIDE 0.9% 250 ML IVPB SCH (18:34)
--- NOTE | 2021-06-17 21:57 | PN ---
PROGRESS NOTE DATE OF SERVICE: 06/17/2021 REASON FOR FOLLOWUP: COVID-19 pneumonia. INTERVAL HISTORY: The patient is afebrile. She mentioned she was breathing slightly hard today. The patient denies having any chest pain. Cough is about the same, not bringing up any sputum. No abdominal pain or diarrhea. PHYSICAL EXAMINATION: Blood pressure 139/75, pulse of 60, temperature 98.2. She is 95% on 6 L nasal cannula. General description is an elderly female lying in bed in no distress. Respiratory system: Unlabored breathing, decreased intensity of breath sounds. No wheeze. Heart S1, S2. Regular rate and rhythm. Abdomen soft, no tenderness. LABS: Hemoglobin is 14.9, white count 13.9, creatinine 0.96. DIAGNOSTIC IMPRESSION AND PLAN: Patient with acute COVID-19 pneumonia, slight worsening of her condition. Patient is covered with Eliquis, dexamethasone, remdesivir, zinc and ascorbic acid. To continue along with respiratory support and monitor clinical course closely. MMODL / IJN: [id number] /
[2021-06-18] MEDS: ALBUTEROL HFA INHALER INHALATION SCH ×4 (07:55→20:15)
[2021-06-18] MEDS: CLINDAMYCIN PHOSP 1% TOPICAL SCH (08:04)
[2021-06-18] MEDS: CLOBETASOL 0.05% TOPICAL SCH (08:04)
[2021-06-18] MEDS: DEXAMETHASONE SOD PHOSPHATE 10 MG/ML 1 ML VIAL IVP SCH (08:05)
[2021-06-18] MEDS: ATORVASTATIN 40 MG TAB PO SCH (08:05)
[2021-06-18] MEDS: FUROSEMIDE 20 MG TAB PO SCH (08:05)
[2021-06-18] MEDS: METOPROLOL TARTRATE 25 MG TAB PO SCH (08:05)
[2021-06-18] MEDS: DULoxetine HCL 20 MG CAPSULE.DR PO SCH (08:05)
[2021-06-18] MEDS: PREGABALIN 75 MG CAP PO SCH ×2 (08:06→20:49)
[2021-06-18] MEDS: APIXABAN 5 MG TAB PO SCH ×2 (08:06→20:49)
[2021-06-18] MEDS: TRIAMTERENE-HCTZ 37.5-25MG 1 EACH CAP PO SCH (08:06)
--- NOTE | 2021-06-18 08:30 | XR ---
EXAMINATION TYPE: XR chest 1V portable DATE OF EXAM: 06/18/2021 COMPARISON: Chest x-ray 06/15/2021 HISTORY: Covid 19 pneumonia TECHNIQUE: Single frontal view of the chest is obtained. FINDINGS: Patchy density is present within the bilateral lungs similar to prior exam. There is a loo p recorder over the left heart, thoracic cord stimulator is in place. There are overlying artifacts. There is no evident pneumothorax or pleural effusion. Heart is enlarged. The aorta is dense, possibly ectatic. IMPRESSION: Findings are similar to prior exam. Correlate for pneumonia versus atelectasis or scarri ng, cardiomegaly.
--- NOTE | 2021-06-18 13:51 | P.PN ---
Subjective This is a 36-year-old female with a past medical history of paroxysmal atrial fibrillation, typical atrial flutter, mild aortic stenosis, right bundle-branch block, occasional PVCs, hypertension, dyslipidemia, nonobstructive coronary artery disease. She follows in the office with Dr. Watts. Cardiology was consulted for elevated troponin. (0.03, 0.04, 0.06) Patient presented emergency department with worsening shortness of breath, not feeling well, nonproductive cough and a low-grade fever. She was found to be COVID-19 positive. Patient seen and examined at bedside, she continues to have a nonproductive cough and shortness of breath. She states her breathing has improved from yesterday. She denies any chest pain. Telemetry reviewed patient is maintaining sinus mechanism heart rate 4850s, with PVCs. Echocardiogram revealed EF of 6065 percent, moderate aortic stenosis the peak/meangradient of 48 mmHg/29 mmHg, mild to moderate mitral regurgitation. She's currently maintained on metoprolol tartrate 25 mg BID, Eliquis 5 mg twice a day, atorvastatin 40 mg daily, PO Lasix 20 mg daily. Vitals: Reviewed Full physical examination not completed to reduce covid-19 exposure GENERAL: In no acute distress +Cough NECK: Supple without JVD LUNGS: Respiration equal and unlabored. EXTREMITIES: Normal range of motion, no edema. ASSESSMENT Mildly Elevated troponin, not indicative of acute coronary syndrome. EKG with no evidence of ischemia. Echocardiogram with normal EF Covid-19 infection Moderate aortic stenosis Paroxysmal atrial fibrillation on ELiquis History of typical atrial flutter Right bundle branch block Hypertension Dyslipidemia Non-obstructive coronary artery disease PLAN Will continue patient's home medication metoprolol succinate 25mg daily, Eliquis 5 mg twice a day, atorvastatin 40 mg daily, PO Lasix 20m daily. Continue supportive care for covid-19 infection Encourage incentive spirometry Rest of management per primary and pulmonary We will follow the patient as needed. Please reach out with any further questions or concerns Patient to follow up with Dr. Watts outpatient. Objective - Vital Signs Vital signs: Vital Signs Temp 97.6 F 06/18/21 12:00 Pulse 50 L 06/18/21 12:00 Resp 20 06/18/21 12:00 BP 140/63 06/18/21 12:00 Pulse Ox 93 L 06/18/21 12:00 Intake & Output 06/17/21 06/18/21 06/18/21 18:59 06:59 18:59 Intake Total 700 Output Total 400 Balance 700 -400 Weight 102 kg Intake: Oral 700 Output: Urine 400 Other: Voiding Method Toilet Toilet Toilet # Voids 4 - Labs CBC & Chem 7: 06/17/21 06:58 06/17/21 06:58
[2021-06-18] MEDS: REMDESIVIR 100 MG in SODIUM CHLORIDE 0.9% 250 ML IVPB SCH (17:02)
--- NOTE | 2021-06-18 18:59 | CDI ---
Documentation Clarification Form Date: 06/18/2021 06:13:04 PM From: Mana Chowdhury RN CCDS Admit Date: 06/15/2021 04:38:00 PM Patient Name: Payton Ridley Visit Number: [id number] Discharge Date: ATTENTION: The Clinical Documentation Specialists (CDI) and [facility] Coding Staff appreciate your assistance in clarifying documentation. Please respond to the clarification below the line at the bottom and electronically sign. The CDI & [facility] Coding staff will review the response and follow-up if needed. Please note: Queries are made part of the Legal Health Record. If you have any questions, please contact the author of this message via ITS. Dr. Anibal Ferrari There is documentation of Sepsis 06/17, Pulmonology consult. Additional clarification regarding is requested. History/Risk Factors: 86-year-old presents to the ED for shortness of breath. Medical History: CVA, Ovarian CA, COPD, HTN and Atrial Fibrillation. Clinical Indicators: Admitting diagnoses: Acute COVID 19 Infection with COVID 19 bilateral interstitial pneumonia with Acute hypoxic respiratory failure. 06/15, H&P Labs: 06/15 Wbc 9.4, Neutrophils 9.4, COVID 19 Detected. Lactic acid: 06/15 2.3 Vitals signs: B/P 136/70, HR 92, Temp 98.9F Oral, RR 18, SpO2 92% 3L nasal canula Treatment: 06/15 Bamlanivimab 700mg Etesevimab 1,400mg IVPB X 1, 06/16 Remdesivir 200mg IVPB x1 06/17 Remdesivir 100mg IVPB Q24h D/C 06/18. ID Consult: 06/16 Patient has increasing shortness of breath, cough and fever for four days. The patient has underlying pulmonary fibrosis with progression of the interstitial infiltrate on xray. No clinical suspicion of bacterial pneumonia. In your professional opinion, please clarify if these findings signify one of the following conditions: [ ] Sepsis ruled out [ ] Sepsis POA [ ] Other, please specify [ ] Unable to determine SIRS Criteria: 2 or more of the following may indicate SIRS -Temperature < 96.8F (36C) or > 101.0F (38.3C) -Heart Rate > 90 bpm -Respiratory Rate > 20 breaths/min or PaCO2 < 32 mmHg -White Blood Cell Count > 12,000 or < 4,000 cells/mm3 or > 10% bands (Template Last Reviewed: August 2020) Sepsis ruled out MTDD
--- NOTE | 2021-06-18 19:43 | PN ---
PROGRESS NOTE DATE OF SERVICE: 06/18/2021 This 86-year-old woman who was admitted with acute COVID-19 infection with acute COVID- 19 bilateral interstitial pneumonia with acute hypoxic respiratory failure is being closely monitored. No chest pain. No palpitation. No fever. The patient is rather hypoxic today. Portable chest x-ray was done today which showed possible bilateral interstitial pneumonia suggestive of COVID-19. No chest pain. No palpitations. No fever. Past medical history reviewed. REVIEW OF SYSTEMS: CARDIOVASCULAR SYSTEM: No angina. RESPIRATION: As mentioned earlier. GI: As mentioned earlier. : No dysuria, retention. NERVOUS SYSTEM: No numbness, weakness. CURRENT MEDICATIONS: Reviewed. They include Tylenol, [place], Ventolin, Eliquis, Lipitor, Decadron, Benadryl, Cymbalta. Doses are reviewed. PHYSICAL EXAMINATION: Patient alert and oriented x3. Pulse 50, blood pressure 143/60, respiration 20, temperature 97.3, pulse ox 93% on 12 L. HEENT: Conjunctivae normal. NECK: No jugular venous distention. CARDIOVASCULAR: S1, S2 muffled. RESPIRATION: Breath sounds diminished at the bases. A few scattered rhonchi and crackles. Expiratory wheezing. ABDOMEN: Soft. NERVOUS SYSTEM: No focal deficit. LABS: WBC 13.9. ASSESSMENT: 1. Acute COVID-19 infection with acute COVID-19 bilateral interstitial pneumonia with acute hypoxic respiratory failure, present on admission. 2. Troponin 0.04, possibly secondary to COVID-19 with acute fue-GW-[id number]-elevation myocardial infarction unlikely per Cardiology. 3. Elevated plasma lactic acid, possibly secondary to dehydration, present on admission. 4. Status post BAM. 5. History of atrial fibrillation. 6. On remdesivir. 7. History of cerebrovascular accident, transient ischemic attack. 8. Chronic obstructive pulmonary disease, acute exacerbation. 9. Hypertension. 10.History of pneumonia. 11.History of chronic low back pain. 12.History of ovarian cancer. 13.History of Clostridium difficile colitis. 14.History of back surgery, degenerative joint disease. 15.History of hysterectomy. 16.History of depression. 17.Obesity with body mass index of 42.2. 18.Extremely hard of hearing. 19.NO CODE, NO CPR, NO VENT. RECOMMENDATIONS AND DISCUSSION: I recommend to continue current medications, continue with symptomatic treatment. Continue remdesivir. Continue the rest of the medications. Closely follow with multiple consultants. Prognosis guarded. Further recommendations to follow. MMODL / IJN: [id number] /
--- NOTE | 2021-06-18 22:59 | PN ---
PROGRESS NOTE DATE OF SERVICE: 06/18/2021 REASON FOR FOLLOWUP: COVID-19 pneumonia. INTERVAL HISTORY: The patient is afebrile. The patient is breathing slightly comfortably. The patient denies having any chest pain or worsening cough. No abdominal pain or diarrhea. PHYSICAL EXAMINATION: Blood pressure 135/65, pulse of 51, temperature 98.4. She is 92% on L nasal cannula. General description is an elderly female lying in bed in no distress. Respiratory system: Unlabored breathing, decreased intensity of breath sounds. No wheeze. Heart S1, S2. Regular rate and rhythm. Abdomen soft, no tenderness. LABS: Hemoglobin is 14.1, white count 13.9, creatinine 0.96. DIAGNOSTIC IMPRESSION AND PLAN: Patient with acute COVID-19 pneumonia in this patient currently on remdesivir; to continue along with Eliquis, decadron, zinc and ascorbic acid. Monitor her clinical course closely. Continue with supportive care. MMODL / IJN: [id number] /
[2021-06-19] MEDS: FUROSEMIDE 20 MG TAB PO SCH (07:58)
[2021-06-19] MEDS: ATORVASTATIN 40 MG TAB PO SCH (07:58)
[2021-06-19] MEDS: PREGABALIN 75 MG CAP PO SCH ×2 (07:58→22:26)
[2021-06-19] MEDS: TRIAMTERENE-HCTZ 37.5-25MG 1 EACH CAP PO SCH (07:58)
[2021-06-19] MEDS: DULoxetine HCL 20 MG CAPSULE.DR PO SCH (07:58)
[2021-06-19] MEDS: DEXAMETHASONE SOD PHOSPHATE 10 MG/ML 1 ML VIAL IVP SCH (07:58)
[2021-06-19] MEDS: METOPROLOL SUCCINATE (ER) 25 MG TAB.ER.24H PO SCH (07:58)
[2021-06-19] MEDS: APIXABAN 5 MG TAB PO SCH ×2 (07:58→22:26)
[2021-06-19] MEDS: CLOBETASOL 0.05% TOPICAL SCH (08:05)
[2021-06-19] MEDS: CLINDAMYCIN PHOSP 1% TOPICAL SCH (08:05)
[2021-06-19] MEDS: ALBUTEROL HFA INHALER INHALATION SCH ×4 (09:04→19:57)
--- NOTE | 2021-06-19 13:44 | P.PN ---
Subjective Progress Note Date: 06/18/21 Principal diagnosis: Acute on chronic hypoxic history failure Acute COVID-19 pneumonia Sleep disorder breathing and sleep apnea Moderate aortic stenosis Sepsis due to COVID-19 pneumonia Chronic atrial fibrillation on anticoagulation with direct oral anticoagulants Chronic multiple medical problems including prior history of CVA, TIA, COPD, hypertension, chronic back pain, ovarian cancer, C. difficile colitis, depression, severe morbid obesity, extremely hard of hearing 06/18/2021, patient remains short of breath, especially during activity and exertion desaturate extensively, patient remains on appropriate treatment for COVID-19 pneumonia and respiratory failure, patient remains afebrile, bradycardic, respiratory status stable hemodynamics stable, oxygen saturation is 92% on 12 L high flow oxygen, chest x-ray finding consistent with bilateral infiltrate of COVID-19 pneumonia overall remains stable no significant change has been noted, Patient is a 86-year-old female with a history of chronic hypoxic history failure chronic oxygen therapy at home, usually she is on 3 L nasal cannula, she has other active medical problems ongoing associated with chronic atrial fibrillation on the direct oral anticoagulation hypertension hypertensive cardiovascular disease sleep-disordered breathing and sleep apnea symptoms of progressive for the last 4 days, she is requiring more oxygen than baseline her oral course of prednisone without any relief came into the hospital for further evaluation and intervention and treatment, her admit x-ray is significant for bilateral interstitial infiltrate streaky nature with pulmonary fibrosis, significant for significant LVH, ejection fraction is 60%, dilated left atria, moderate to severe aortic sclerosis and aortic stenosis, Workup in the emergency department has been significant for lactic acidosis with a lactic acid of 2.3, elevated troponin, COVID-19 came back positive, patient is status post IV antibiotic infusion, being continued on bronchodilator along with oral diuretic anticoagulation with IV steroids in the form Decadron 6 mg daily, she is getting IV in remesivir infusion as well per protocol Objective - Vital Signs Vital signs: Vital Signs Temp 97.6 F 06/18/21 12:00 Pulse 50 L 06/18/21 12:00 Resp 20 06/18/21 12:00 BP 140/63 06/18/21 12:00 Pulse Ox 93 L 06/18/21 12:00 Intake & Output 06/17/21 06/18/21 06/18/21 18:59 06:59 18:59 Intake Total 700 Output Total 400 Balance 700 -400 Weight 102 kg Intake: Oral 700 Output: Urine 400 Other: Voiding Method Toilet Toilet Toilet # Voids 4 - Exam - Constitutional General appearance: disheveled, mild distress, morbidly obese - EENT Eyes: PERRLA Ears: bilateral: normal - Neck Neck: normal ROM Carotids: bilateral: upstroke normal Thyroid: bilateral: normal size - Respiratory Respiratory: bilateral: diminished - Cardiovascular Rhythm: regular Heart sounds: normal: S1, S2 - Gastrointestinal General gastrointestinal: decreased bowel sounds, distended - Neurologic Neurologic: CNII-XII intact - Musculoskeletal Musculoskeletal: gait normal, generalized weakness - Psychiatric Psychiatric: A&O x's 3, appropriate affect, intact judgment & insight - Labs CBC & Chem 7: 06/17/21 06:58 06/17/21 06:58 Assessment and Plan Assessment: Acute on chronic hypoxic history failure Acute COVID-19 pneumonia Sleep disorder breathing and sleep apnea Moderate aortic stenosis Sepsis due to COVID-19 pneumonia Chronic atrial fibrillation on anticoagulation with direct oral anticoagulants Chronic multiple medical problems including prior history of CVA, TIA, COPD, hypertension, chronic back pain, ovarian cancer, C. difficile colitis, depression, severe morbid obesity, extremely hard of hearing Plan: Patient is being appropriately treated with IV Decadron, IV REMdesivir, bronchodilator, and anticoagulation with direct oral anticoagulant Patient is advise if BiPAP machine from home can be brought brought in so she can use it each night and when necessary during day Repeat chest x-ray reviewed Continue O2 and titrate down as tolerated Follow closely Time with Patient: Greater than 30
--- NOTE | 2021-06-19 13:45 | P.PN ---
Subjective Progress Note Date: 06/19/21 Principal diagnosis: Acute on chronic hypoxic history failure Acute COVID-19 pneumonia Sleep disorder breathing and sleep apnea Moderate aortic stenosis Sepsis due to COVID-19 pneumonia Chronic atrial fibrillation on anticoagulation with direct oral anticoagulants Chronic multiple medical problems including prior history of CVA, TIA, COPD, hypertension, chronic back pain, ovarian cancer, C. difficile colitis, depression, severe morbid obesity, extremely hard of hearing 06/19/2021, patient remains on 12 L high flow oxygen but however oxygen saturation hemodynamic status stable, oxygen saturation 90-94%, patient is visibly less short of breath, but however becomes hypoxic desaturate on activity and exertion and on titrating oxygen down, patient remains on appropriate treatment for COVID-19 pneumonia and acute respiratory failure, 06/18/2021, patient remains short of breath, especially during activity and exertion desaturate extensively, patient remains on appropriate treatment for COVID-19 pneumonia and respiratory failure, patient remains afebrile, bradycar dic, respiratory status stable hemodynamics stable, oxygen saturation is 92% on 12 L high flow oxygen, chest x-ray finding consistent with bilateral infiltrate of COVID-19 pneumonia overall remains stable no significant change has been noted, Patient is a 86-year-old female with a history of chronic hypoxic history failure chronic oxygen therapy at home, usually she is on 3 L nasal cannula, she has other active medical problems ongoing associated with chronic atrial fibrillation on the direct oral anticoagulation hypertension hypertensive cardiovascular disease sleep-disordered breathing and sleep apnea symptoms of progressive for the last 4 days, she is requiring more oxygen than baseline her oral course of prednisone without any relief came into the hospital for further evaluation and intervention and treatment, her admit x-ray is significant for bilateral interstitial infiltrate streaky nature with pulmonary fibrosis, significant for significant LVH, ejection fraction is 60%, dilated left atria, moderate to severe aortic sclerosis and aortic stenosis, Workup in the emergency department has been significant for lactic acidosis with a lactic acid of 2.3, elevated troponin, COVID-19 came back positive, patient is status post IV antibiotic infusion, being continued on bronchodilator along with oral diuretic anticoagulation with IV steroids in the form Decadron 6 mg daily, she is getting IV in remesivir infusion as well per protocol Objective - Vital Signs Vital signs: Vital Signs Temp 98.1 F 06/19/21 12:00 Pulse 63 06/19/21 12:00 Resp 19 06/19/21 12:00 BP 130/75 06/19/21 12:00 Pulse Ox 93 L 06/19/21 12:00 Intake & Output 06/18/21 06/19/21 06/19/21 18:59 06:59 18:59 Intake Total 480 Output Total 400 1000 Balance -400 -1000 480 Weight 97.5 kg Intake: Oral 480 Output: Urine 400 1000 Other: Voiding Method Toilet Toilet Toilet - Exam - Constitutional General appearance: disheveled, mild distress, morbidly obese - EENT Eyes: PERRLA Ears: bilateral: normal - Neck Neck: normal ROM Carotids: bilateral: upstroke normal Thyroid: bilateral: normal size - Respiratory Respiratory: bilateral: diminished - Cardiovascular Rhythm: regular Heart sounds: normal: S1, S2 - Gastrointestinal General gastrointestinal: decreased bowel sounds, distended - Neurologic Neurologic: CNII-XII intact - Musculoskeletal Musculoskeletal: gait normal, generalized weakness - Psychiatric Psychiatric: A&O x's 3, appropriate affect, intact judgment & insight - Labs CBC & Chem 7: 06/17/21 06:58 06/17/21 06:58 Assessment and Plan Assessment: Acute on chronic hypoxic history failure Acute COVID-19 pneumonia Sleep disorder breathing and sleep apnea Moderate aortic stenosis Sepsis due to COVID-19 pneumonia Chronic atrial fibrillation on anticoagulation with direct oral anticoagulants Chronic multiple medical problems including prior history of CVA, TIA, COPD, hypertension, chronic back pain, ovarian cancer, C. difficile colitis, depression, severe morbid obesity, extremely hard of hearing Plan: Patient is being appropriately treated with IV Decadron, IV REMdesivir, br onchodilator, and anticoagulation with direct oral anticoagulant Patient is advise if BiPAP machine from home can be brought brought in so she can use it each night and when necessary during day Repeat chest x-ray reviewed Continue O2 and titrate down as tolerated Follow closely
[2021-06-19] MEDS: REMDESIVIR 100 MG in SODIUM CHLORIDE 0.9% 250 ML IVPB SCH (16:57)
[2021-06-19] MEDS: ASCORBIC ACID 500 MG TAB PO SCH (17:41)
[2021-06-19] MEDS: CHOLECALCIFEROL 25 MCG (1000 IU) TABLET PO SCH (17:41)
[2021-06-19] MEDS: ZINC SULFATE 220 MG CAP PO SCH (17:41)
--- NOTE | 2021-06-19 18:43 | PN ---
PROGRESS NOTE DATE OF SERVICE: 06/19/2021. This 86-year-old woman who was admitted with acute COVID-19 infection with COVID-19 interstitial bilateral pneumonia is being closely monitored. The patient is severely hypoxic at this time. The patient is on 12 L nasal cannula, saturating around 92%. Multiple consultants, including Infectious Disease and Pulmonary, are following the patient closely. Chest x-ray done a day ago showed some bilateral infiltrates suggestive of COVID-19 pneumonia. No chest pain. No palpitations. No fever. PHYSICAL EXAMINATION: Alert and oriented x3. Pulse 75, blood pressure 142/74, respiration 18, temperature 97.8, pulse ox 92% on 2 L. HEENT: Conjunctivae normal. Oral mucosa moist. NECK: No jugular venous distention. No carotid bruit. No lymph node enlargement. CARDIOVASCULAR: S1, S2 muffled. RESPIRATION: Breath sounds diminished at the bases. A few scattered rhonchi and crackles. ABDOMEN: Soft, nontender. LEGS: No edema. No swelling. NERVOUS SYSTEM: No focal deficit. LABS: Labs at this time show WBC 13.9. Other labs are noted. ASSESSMENT: 1. Acute COVID-19 infection with acute COVID-19 bilateral interstitial pneumonia with acute hypoxic respiratory failure, present on admission. 2. Troponin 0.04, possibly secondary to COVID-19 with acute [id number] myocardial infarction; unlikely per Cardiology. 3. Elevated plasma lactic acid, possibly secondary to dehydration, present on admission. 4. Status post BAM. 5. History of atrial fibrillation. 6. On remdesivir. 7. History of cerebrovascular accident, transient ischemic attack. 8. Chronic obstructive pulmonary disease, acute exacerbation. 9. Hypertension. 10.History of pneumonia. 11.History of chronic low back pain. 12.History of ovarian cancer. 13.History of Clostridium difficile colitis. 14.History of back surgery, degenerative joint disease. 15.History of hysterectomy. 16.History of depression. 17.Obesity with body mass index of 42.2. 18.Extremely hard of hearing. 19.NO CODE, NO CPR, NO VENT. RECOMMENDATIONS AND DISCUSSION: I recommend to continue current medications, continue with symptomatic treatment. Continue with the bronchodilators. Continue with remdesivir. Continue the rest of the medications. Closely follow with Pulmonary as well as Infectious Disease. Continue with dexamethasone. Guarded prognosis. Further recommendations to follow. MMODL / IJN: [id number] /
--- NOTE | 2021-06-19 22:14 | PN ---
PROGRESS NOTE DATE OF SERVICE: 06/19/2021 REASON FOR FOLLOWUP: COVID-19 infection. INTERVAL HISTORY: The patient is afebrile. The patient is breathing slightly comfortably. However, the patient is requiring 12 L nasal cannula. No chest pain. No worsening cough. No abdominal pain or diarrhea. PHYSICAL EXAMINATION: Blood pressure 142/75 with a pulse of 75, temperature 97.9. She is 92% on 12 L nasal cannula. General description is an elderly female up in the chair in no distress. Respiratory system: Unlabored breathing, decreased intensity of breath sounds. No wheeze. Heart S1, S2. Regular rate and rhythm. Abdomen soft, no tenderness. LABS: No new labs have been obtained today. DIAGNOSTIC IMPRESSION AND PLAN: Patient with acute COVID-19 pneumonia. Condition remains critical. Still requiring high-flow oxygen. Patient to continue with remdesivir, dexamethasone, Eliquis, zinc and ascorbic acid. To monitor clinical course closely. Continue with supportive care. MMODL / IJN: [id number] /
[2021-06-20] MEDS: CHOLECALCIFEROL 25 MCG (1000 IU) TABLET PO SCH (09:01)
[2021-06-20] MEDS: PREGABALIN 75 MG CAP PO SCH ×2 (09:05→21:36)
[2021-06-20] MEDS: ATORVASTATIN 40 MG TAB PO SCH (09:05)
[2021-06-20] MEDS: ZINC SULFATE 220 MG CAP PO SCH (09:05)
[2021-06-20] MEDS: FUROSEMIDE 20 MG TAB PO SCH (09:06)
[2021-06-20] MEDS: METOPROLOL SUCCINATE (ER) 25 MG TAB.ER.24H PO SCH (09:06)
[2021-06-20] MEDS: APIXABAN 5 MG TAB PO SCH ×2 (09:06→21:36)
[2021-06-20] MEDS: TRIAMTERENE-HCTZ 37.5-25MG 1 EACH CAP PO SCH (09:07)
[2021-06-20] MEDS: DULoxetine HCL 20 MG CAPSULE.DR PO SCH (09:07)
[2021-06-20] MEDS: DEXAMETHASONE SOD PHOSPHATE 10 MG/ML 1 ML VIAL IVP SCH (09:07)
[2021-06-20] MEDS: ALBUTEROL HFA INHALER INHALATION SCH ×4 (09:58→21:59)
--- NOTE | 2021-06-20 10:10 | P.PN ---
Subjective Progress Note Date: 06/20/21 Principal diagnosis: Acute on chronic hypoxic history failure Acute COVID-19 pneumonia Sleep disorder breathing and sleep apnea Moderate aortic stenosis Sepsis due to COVID-19 pneumonia Chronic atrial fibrillation on anticoagulation with direct oral anticoagulants Chronic multiple medical problems including prior history of CVA, TIA, COPD, hypertension, chronic back pain, ovarian cancer, C. difficile colitis, depression, severe morbid obesity, extremely hard of hearing 06/20/2021, patient remains on 12 L high flow oxygen but overall no significant deterioration in clinical status and respiratory pattern has been noted, intermittent cough is present, eating comfortably, hemodynamic status stable patient remains afebrile saturations 98%, also on appropriate therapy for COVID- 19 pneumonia seems to be responding appropriately with stablity noted 06/19/2021, patient remains on 12 L high flow oxygen but however oxygen saturation hemodynamic status stable, oxygen saturation 90-94%, patient is visibly less short of breath, but however becomes hypoxic desaturate on activity and exertion and on titrating oxygen down, patient remains on appropriate treatment for COVID-19 pneumonia and acute respiratory failure, 06/18/2021, patient remains short of breath, especially during activity and exertion desaturate extensively, patient remains on appropriate treatment for COVID-19 pneumonia and respiratory failure, patient remains afebrile, bradycardic, respiratory status stable hemodynamics stable, oxygen saturation is 92% on 12 L high flow oxygen, chest x-ray finding consistent with bilateral infiltrate of COVID-19 pneumonia overall remains stable no significant change has been noted, Patient is a 86-year-old female with a history of chronic hypoxic history f ailure chronic oxygen therapy at home, usually she is on 3 L nasal cannula, she has other active medical problems ongoing associated with chronic atrial fibrillation on the direct oral anticoagulation hypertension hypertensive cardiovascular disease sleep-disordered breathing and sleep apnea symptoms of progressive for the last 4 days, she is requiring more oxygen than baseline her oral course of prednisone without any relief came into the hospital for further evaluation and intervention and treatment, her admit x-ray is significant for bilateral interstitial infiltrate streaky nature with pulmonary fibrosis, significant for significant LVH, ejection fraction is 60%, dilated left atria, moderate to severe aortic sclerosis and aortic stenosis, Workup in the emergency department has been significant for lactic acidosis with a lactic acid of 2.3, elevated troponin, COVID-19 came back positive, patient is status post IV antibiotic infusion, being continued on bronchodilator along with oral diuretic anticoagulation with IV steroids in the form Decadron 6 mg daily, she is getting IV in remesivir infusion as well per protocol Objective - Vital Signs Vital signs: Vital Signs Temp 97.1 F L 06/20/21 09:00 Pulse 59 L 06/20/21 09:00 Resp 18 06/20/21 09:00 BP 155/70 06/20/21 09:00 Pulse Ox 98 06/20/21 09:00 Intake & Output 06/19/21 06/20/21 06/20/21 18:59 06:59 18:59 Intake Total 480 560 240 Output Total 1025 Balance 480 -465 240 Weight 96 kg Intake: Oral 480 560 240 Output: Urine 1025 Other: Voiding Method Toilet - Exam - Constitutional General appearance: disheveled, mild distress, morbidly obese - EENT Eyes: PERRLA Ears: bilateral: normal - Neck Neck: normal ROM Carotids: bilateral: upstroke normal Thyroid: bilateral: normal size - Respiratory Respiratory: bilateral: diminished - Cardiovascular Rhythm: regular Heart sounds: normal: S1, S2 - Gastrointestinal General gastrointestinal: decreased bowel sounds, distended - Neurologic Neurologic: CNII-XII intact - Musculoskeletal Musculoskeletal: gait normal, generalized weakness - Psychiatric Psychiatric: A&O x's 3, appropriate affect, intact judgment & insight - Labs CBC & Chem 7: 06/17/21 06:58 06/17/21 06:58 Assessment and Plan Assessment: Acute on chronic hypoxic history failure Acute COVID-19 pneumonia Sleep disorder breathing and sleep apnea Moderate aortic stenosis Sepsis due to COVID-19 pneumonia Chronic atrial fibrillation on anticoagulation with direct oral anticoagulants Chronic multiple medical problems including prior history of CVA, TIA, COPD, hypertension, chronic back pain, ovarian cancer, C. difficile colitis, depression, severe morbid obesity, extremely hard of hearing Plan: Patient is being appropriately treated with IV Decadron, IV REMdesivir, bronchodilator, and anticoagulation with direct oral anticoagulant Patient is advise if BiPAP machine from home can be brought brought in so she can use it each night and when necessary during day Repeat chest x-ray reviewed Continue O2 and titrate down as tolerated Follow closely Time with Patient: Greater than 30
[2021-06-20 11:05] LABS: Basophils % (A) 0 %; Eosinophils % (A) 0 %; HGB 14.3 gm/dL (11.4-16.0); Lymphocytes # (A) 1.3 k/uL (1.0-4.8); Lymphocytes % (A) 11 %; MCH 28.3 pg (25.0-35.0); MCHC 31.1 g/dL (31.0-37.0); MCV 91.2 fL (80.0-100.0); Mean Platelet Volume 8.8; Monocytes # (A) 0.4 k/uL (0-1.0); Monocytes % (A) 4 %; Neutrophils # (A) 9.8 k/uL (1.3-7.7); Neutrophils % (A) 84 %; Platelet Count 184 k/uL (150-450); RBC 5.05 m/uL (3.80-5.40); RDW 14.6 % (11.5-15.5); WBC 11.7 k/uL (3.8-10.6)
[2021-06-20 11:20] LABS: Albumin 3.6 g/dL (3.5-5.0); Calcium 9.6 mg/dL (8.4-10.2); Potassium 3.7 mmol/L (3.5-5.1); Total Bilirubin 0.4 mg/dL (0.2-1.3); Total Protein 6.3 g/dL (6.3-8.2)
[2021-06-20] MEDS: ASCORBIC ACID 500 MG TAB PO SCH (11:58)
[2021-06-20] MEDS: CLINDAMYCIN PHOSP 1% TOPICAL SCH (11:59)
[2021-06-20] MEDS: CLOBETASOL 0.05% TOPICAL SCH (11:59)
[2021-06-20] MEDS: REMDESIVIR 100 MG in SODIUM CHLORIDE 0.9% 250 ML IVPB SCH (17:34)
--- NOTE | 2021-06-20 18:59 | PN ---
PROGRESS NOTE DATE OF SERVICE: 06/20/2021 This 86-year-old woman who was admitted with acute COVID-19 infection had COVID-19 bilateral interstitial pneumonia with acute hypoxic respiratory failure and is being closely monitored. No chest pain. No palpitations. No fever. Most recent chest x-ray done on 06/18 showed some bilateral interstitial pneumonia suggestive of COVID-19. PHYSICAL EXAMINATION: Alert and oriented x3. Pulse is 59, blood pressure 114/57, respiration 18, temperature 98.0, pulse ox 92% on 12 L. Patient is extremely hard of hearing. CARDIOVASCULAR: S1, S2 muffled. RESPIRATION: Breath sounds diminished at the bases. A few scattered rhonchi. ABDOMEN: Soft. NERVOUS SYSTEM: No focal deficit. LABS: Labs at this time show WBC 11.7, sodium 132, potassium 5.7. ASSESSMENT: 1. Acute COVID-19 infection with acute COVID-19 bilateral interstitial pneumonia with acute hypoxic respiratory failure, present on admission. 2. Troponin 0.04, possibly secondary to COVID-19 with acute bjw-BW-mixfabv-elevation infarction unlikely per Cardiology. 3. Elevated plasma lactic acid, possibly secondary to dehydration, present on admission. 4. Status post BAM. 5. History of atrial fibrillation, intermittent. 6. On remdesivir. 7. History of cerebrovascular accident, transient ischemic attack. 8. Chronic obstructive pulmonary disease, acute exacerbation. 9. Hypertension. 10.History of pneumonia. 11.History of chronic low back pain. 12.History of ovarian cancer. 13.History of Clostridium difficile colitis. 14.History of back surgery, degenerative joint disease. 15.History of hysterectomy. 16.History of depression. 17.Obesity with body mass index of 42.2. 18.Extremely hard of hearing. 19.NO CODE, NO CPR, NO VENT. RECOMMENDATIONS AND DISCUSSION: I recommend to continue current medications, continue with the monitoring, symptomatic treatment. Otherwise at this time I would recommend continuing with dexamethasone. Continue with remdesivir and the rest of the medications. Closely follow with Pulmonary and Infectious Disease. Prognosis guarded because of multiple complex medical issues. Patient is still on an extremely high level of oxygen. Once the oxygen is titrated down, we will continue to monitor. Patient might be a candidate for discharge at that point. MMODL / IJN: [id number] /
[2021-06-21] MEDS: ALBUTEROL HFA INHALER INHALATION SCH ×4 (07:31→21:59)
[2021-06-21 08:38] VITALS: BMI 39.5
[2021-06-21] MEDS: ATORVASTATIN 40 MG TAB PO SCH (09:19)
[2021-06-21] MEDS: TRIAMTERENE-HCTZ 37.5-25MG 1 EACH CAP PO SCH (09:19)
[2021-06-21] MEDS: DULoxetine HCL 20 MG CAPSULE.DR PO SCH (09:20)
[2021-06-21] MEDS: CHOLECALCIFEROL 25 MCG (1000 IU) TABLET PO SCH (09:20)
[2021-06-21] MEDS: ASCORBIC ACID 500 MG TAB PO SCH (09:20)
[2021-06-21] MEDS: FUROSEMIDE 20 MG TAB PO SCH (09:20)
[2021-06-21] MEDS: APIXABAN 5 MG TAB PO SCH ×2 (09:20→20:43)
[2021-06-21] MEDS: PREGABALIN 75 MG CAP PO SCH ×2 (09:20→20:43)
[2021-06-21] MEDS: METOPROLOL SUCCINATE (ER) 25 MG TAB.ER.24H PO SCH (09:20)
[2021-06-21] MEDS: ZINC SULFATE 220 MG CAP PO SCH (09:21)
[2021-06-21] MEDS: CLINDAMYCIN PHOSP 1% TOPICAL SCH (09:21)
[2021-06-21] MEDS: CLOBETASOL 0.05% TOPICAL SCH (09:21)
[2021-06-21] MEDS: DEXAMETHASONE SOD PHOSPHATE 10 MG/ML 1 ML VIAL IVP SCH (09:22)
--- NOTE | 2021-06-21 09:38 | PN ---
PROGRESS NOTE DATE OF SERVICE: 06/20/2021 REASON FOR FOLLOWUP: COVID-19 pneumonia. INTERVAL HISTORY: Patient is afebrile. The patient is breathing slightly comfortably. Denies having any chest pain, worsening cough or sputum production. No abdominal pain. No diarrhea. EXAMINATION: Blood pressure 136/59, pulse of 59, temperature 98.8. She is 93% on 12 L nasal cannula. General description is an elderly female up in the chair in no distress. Respiratory system: Unlabored breathing, decreased intensity of breath sounds. No wheeze. Heart S1, S2. Regular rate and rhythm. Abdomen soft, no tenderness. LABS: Hemoglobin 14.8, white count 11.7, creatinine 0.89. DIAGNOSTIC IMPRESSION AND PLAN: Patient with acute COVID-19 pneumonia. Patient has completed a five-day course of Remdesivir to continue Eliquis, Decadron, zinc and ascorbic acid and monitor clinical course closely. MMODL / IJN: [id number] /
--- NOTE | 2021-06-21 09:41 | P.PN ---
Subjective Progress Note Date: 06/21/21 Principal diagnosis: Acute on chronic hypoxic history failure Acute COVID-19 pneumonia Sleep disorder breathing and sleep apnea Moderate aortic stenosis Sepsis due to COVID-19 pneumonia Chronic atrial fibrillation on anticoagulation with direct oral anticoagulants Chronic multiple medical problems including prior history of CVA, TIA, COPD, hypertension, chronic back pain, ovarian cancer, C. difficile colitis, depression, severe morbid obesity, extremely hard of hearing 06/21/2021, and sitting upright in the bed, still have intermittent cough shortness of breath especially on activity and exertion, referred to have been down to 9 L from 12 L high flow, saturation have been 97%, medications reviewed, 06/20/2021, patient remains on 12 L high flow oxygen but overall no significant deterioration in clinical status and respiratory pattern has been noted, intermittent cough is present, eating comfortably, hemodynamic status stable patient remains afebrile saturations 98%, also on appropriate therapy for COVID- 19 pneumonia seems to be responding appropriately with stablity noted 06/19/2021, patient remains on 12 L high flow oxygen but however oxygen saturation hemodynamic status stable, oxygen saturation 90-94%, patient is visibly less short of breath, but however becomes hypoxic desaturate on activity and exertion and on titrating oxygen down, patient remains on appropriate treatment for COVID-19 pneumonia and acute respiratory failure, 06/18/2021, patient remains short of breath, especially during activity and exertion desaturate extensively, patient remains on appropriate treatment for COVID-19 pneumonia and respiratory failure, patient remains afebrile, bradycardic, respiratory status stable hemodynamics stable, oxygen saturation is 92% on 12 L high flow oxygen, chest x-ray finding consistent with bilateral infiltrate of COVID-19 pneumonia overall remains stable no significant change has been noted, Patient is a 86-year-old female with a history of chronic hypoxic history failure chronic oxygen therapy at home, usually she is on 3 L nasal cannula, she has other active medical problems ongoing associated with chronic atrial fibrillation on the direct oral anticoagulation hypertension hypertensive cardiovascular disease sleep-disordered breathing and sleep apnea symptoms of progressive for the last 4 days, she is requiring more oxygen than baseline her oral course of prednisone without any relief came into the hospital for further evaluation and intervention and treatment, her admit x-ray is significant for bilateral interstitial infiltrate streaky nature with pulmonary fibrosis, significant for significant LVH, ejection fraction is 60%, dilated left atria, moderate to severe aortic sclerosis and aortic stenosis, Workup in the emergency department has been significant for lactic acidosis with a lactic acid of 2.3, elevated troponin, COVID-19 came back positive, patient is status post IV antibiotic infusion, being continued on bronchodilator along with oral diuretic anticoagulation with IV steroids in the form Decadron 6 mg daily, she is getting IV in remesivir infusion as well per protocol Objective - Vital Signs Vital signs: Vital Signs Temp 98.0 F 06/21/21 04:00 Pulse 54 L 06/21/21 04:00 Resp 18 06/21/21 04:00 BP 160/74 06/21/21 04:00 Pulse Ox 97 06/21/21 04:00 Intake & Output 06/20/21 06/21/21 06/21/21 18:59 06:59 18:59 Intake Total 1200 240 Output Total 800 Balance 1200 -800 240 Weight 98 kg 98 kg Intake: Oral 1200 240 Output: Urine 800 Other: Voiding Method Toilet Toilet Bedside Commode - Exam - Constitutional General appearance: disheveled, mild distress, morbidly obese - EENT Eyes: PERRLA Ears: bilateral: normal - Neck Neck: normal ROM Carotids: bilateral: upstroke normal Thyroid: bilateral: normal size - Respiratory Respiratory: bilateral: diminished - Cardiovascular Rhythm: regular Heart sounds: normal: S1, S2 - Gastrointestinal General gastrointestinal: decreased bowel sounds, distended - Neurologic Neurologic: CNII-XII intact - Musculoskeletal Musculoskeletal: gait normal, generalized weakness - Psychiatric Psychiatric: A&O x's 3, appropriate affect, intact judgment & insight - Labs CBC & Chem 7: 06/20/21 10:14 06/20/21 10:14 Labs: Abnormal Lab Results - Last 24 Hours (Table) 06/20/21 06/20/21 Range/Units 10:14 10:14 WBC 11.7 H (3.8-10.6) k/uL Neutrophils # 9.8 H (1.3-7.7) k/uL Sodium 134 L (137-145) mmol/L Chloride 96 L (98-107) mmol/L Carbon Dioxide 31 H (22-30) mmol/L BUN 29 H (7-17) mg/dL Assessment and Plan Assessment: Acute on chronic hypoxic history failure Acute COVID-19 pneumonia Sleep disorder breathing and sleep apnea Moderate aortic stenosis Sepsis due to COVID-19 pneumonia Chronic atrial fibrillation on anticoagulation with direct oral anticoagulants Chronic multiple medical problems including prior history of CVA, TIA, COPD, hypertension, chronic back pain, ovarian cancer, C. difficile colitis, depression, severe morbid obesity, extremely hard of hearing Plan: Patient is being appropriately treated with IV Decadron, IV REMdesivir, bronchodilator, and anticoagulation with direct oral anticoagulant Patient is advise if BiPAP machine from home can be brought brought in so she can use it each night and when necessary during day Repeat chest x-ray reviewed Continue O2 and titrate down as tolerated Follow closely Time with Patient: Greater than 30
--- NOTE | 2021-06-21 17:19 | PN ---
PROGRESS NOTE DATE OF SERVICE: 06/21/2021 REASON FOR FOLLOWUP: COVID-19 pneumonia. INTERVAL HISTORY: Patient is afebrile. The patient is currently breathing slightly comfortably. Still requiring high-flow oxygen though. The patient denies any chest pain. No worsening cough. No abdominal pain. No diarrhea. PHYSICAL EXAMINATION: Blood pressure 121/57, pulse of 60, temperature 98.3. She is 93% on 10 L nasal cannula. General description is an elderly female lying in bed in no distress. Respiratory system: Unlabored breathing, decreased intensity of breath sounds. No wheeze. Heart S1, S2. Regular rate and rhythm. Abdomen soft, no tenderness. LABS: Hemoglobin is 14.8, white count 11.7, creatinine 0.89. DIAGNOSTIC IMPRESSION AND PLAN: Patient with acute COVID-19 pneumonia. Patient has completed her Remdesivir therapy. Patient is currently on zinc and ascorbic acid along with respiratory support. Monitor clinical course closely. MMODL / IJN: [id number] /
--- NOTE | 2021-06-22 01:11 | P.PN ---
Subjective Progress Note Date: 06/21/21 This is a 86-year-old female who was recently admitted with acute Covid 19 infection and also covid 19 interstitial bilateral pneumonia and is being closely monitored. Patient has completed Remdesivir and maintained on dexamethasone, oral anticoagulant, vitamin and zinc supplements with ID and pulmonary Dr. Benitez following closely. Weaning FI02 as tolerated and currently maintained on 9L HF via NC. Will repeat chest xray and am labs. Review of systems: Constitutional: No reports of fatigue, fever, or chills Cardiovascular: No reports of chest pain or palpitations Respiratory: reports of shortness of breath and dyspnea with minimal exertion GI: No reports of nausea, vomiting, or diarrhea : No reports of dysuria or retention Neurovascular: No reports of numbness or weakness All medications have been reviewed Active Medications Acetaminophen (Acetaminophen Tab 325 Mg Tab) 650 mg PO Q6HR PRN PRN Reason: Fever and/ or MILD Pain Hydrocodone Bitart/Acetaminophen (Hydrocodone/Apap 7.5-325mg 1 Each Tab) 1 each PO BID PRN PRN Reason: Moderate to Severe Pain Albuterol Sulfate (Albuterol Hfa Inhaler) 2 puff INHALATION RT-QID [facility] Last Admin: 06/21/21 11:37 Dose: 2 puff Documented by: Apixaban (Apixaban 5 Mg Tab) 5 mg PO BID [facility]; Protocol Last Admin: 06/21/21 09:20 Dose: 5 mg Documented by: Ascorbic Acid (Ascorbic Acid 500 Mg Tab) 500 mg PO DAILY [facility] Last Admin: 06/21/21 09:20 Dose: 500 mg Documented by: Atorvastatin Calcium (Atorvastatin 40 Mg Tab) 40 mg PO DAILY [facility] Last Admin: 06/21/21 09:19 Dose: 40 mg Documented by: Cholecalciferol (Cholecalciferol 25 Mcg (1000 Iu) Tablet) 25 mcg PO DAILY [facility] Last Admin: 06/21/21 09:20 Dose: 25 mcg Documented by: Dexamethasone Sodium Phosphate (Dexamethasone Sod Phosphate 10 Mg/Ml 1 Ml Vial) 6 mg IVP DAILY [facility] Last Admin: 06/21/21 09:22 Dose: 6 mg Documented by: Diphenhydramine HCl (Diphenhydramine 50 Mg/Ml 1 Ml Vial) 25 mg IVP Q4HR PRN PRN Reason: Allergy Symptoms Last Admin: 06/16/21 10:49 Dose: 25 mg Documented by: Duloxetine HCl (Duloxetine Hcl 20 Mg Capsule.Dr) 20 mg PO DAILY [facility] Last Admin: 06/21/21 09:20 Dose: 20 mg Documented by: Fluticasone Propionate (Fluticasone 50mcg/[place] Nasal 16gm) 1 spray EA NOSTRIL DAILY PRN PRN Reason: Allergy Symptoms Furosemide (Furosemide 20 Mg Tab) 20 mg PO DAILY [facility] Last Admin: 06/21/21 09:20 Dose: 20 mg Documented by: Metoprolol Succinate (Metoprolol Succinate (Er) 25 Mg Tab.Er.24h) 25 mg PO DAILY [facility] Last Admin: 06/21/21 09:20 Dose: 25 mg Documented by: Naloxone HCl (Naloxone 0.4 Mg/Ml 1 Ml Vial) 0.2 mg IV Q2M PRN PRN Reason: Opioid Reversal Non-Formulary Medication (Clobetasol 0.05% Solution) 1 applic TOPICAL DAILY [facility] Last Admin: 06/21/21 09:21 Dose: Not Given Documented by: Non-Formulary Medication (Clindamycin Phosp 1% Lotion) 1 applic TOPICAL DAILY [facility] Last Admin: 06/21/21 09:21 Dose: Not Given Documented by: Pregabalin (Pregabalin 75 Mg Cap) 150 mg PO BID [facility] Last Admin: 06/21/21 09:20 Dose: 150 mg Documented by: Ropinirole HCl (Ropinirole Hcl 1 Mg Tab) 3 mg PO BID [facility] Last Admin: 06/21/21 09:20 Dose: 3 mg Documented by: Triamterene/Hydrochlorothiazide (Triamterene-Hctz 37.5-25mg 1 Each Cap) 1 each PO DAILY [facility] Last Admin: 06/21/21 09:19 Dose: 1 each Documented by: Zinc Sulfate (Zinc Sulfate 220 Mg Cap) 220 mg PO DAILY [facility] Last Admin: 06/21/21 09:21 Dose: 220 mg Documented by: Physical exam: Gen: This is a 86-year-old female who is awake, alert and oriented 3, well- developed, well-nourished..Extremely hard of hearing. Temp is 97.7F, pulse is 60, respirations are 18, blood pressure is 155/65, oxygen saturation is 94% on 9 L via high flow nasal cannula HEENT: Head is atraumatic, normocephalic. Pupils equal, round. Sclerae is anicteric. NECK: Supple. No JVD. No lymphadenopathy. No thyromegaly. LUNGS: Breath sounds are diminished at the bases with no wheezing course rhonchi noted. No intercostal retractions. HEART: S1, S2 are muffled ABDOMEN: Soft. Obese. Bowel sounds are present. No masses. No tenderness. EXTREMITIES: No pedal edema. No calf tenderness. NEUROLOGICAL: Alert and oriented 3, no focal deficits Assessment: Acute COVID-19 infection with acute COVID-19 bilateral interstitial pneumonia with acute hypoxic respiratory failure, present on admission Troponin 0.04, possibly secondary to COVID-19 with acute non-ST segment elevation myocardial infarction unlikely per cardiology Elevated plasma lactic acid, possibly secondary to dehydration, present on admission Status post BAM infusion History of atrial fibrillation, intermittent Status post Remdesivir History of CVA, TIA chronic obstructive pulmonary disease, acute exacerbation Hypertension history of pneumonia history of chronic low back pain history of ovarian cancer History of Clostridium difficile colitis history of back surgery, degenerative joint disease history of hysterectomy history depression obesity with a body mass index of 42.2 extremely hard of hearing No code, no CPR, no vent Plan: Recommend to continue with current medications and management and symptomatic treatment. Continue to wean FI02 as tolerated. Patient down to 9L high flow although continues to titrate due to low oxygen saturation readings. Pulmonary and ID following. Patient has completed remdesivir and continues on IV dexamethasone and vitamin and zinc supplements. Encourage increased activity as tolerated. Due to multiple complex medical issues prognosis is guarded. Will Continue to monitor closely and repeat labs and chest xray. Objective - Vital Signs Vital signs: Vital Signs Temp 97.7 F 06/21/21 08:30 Pulse 60 06/21/21 08:30 Resp 18 06/21/21 08:30 BP 155/65 06/21/21 08:30 Pulse Ox 94 L 06/21/21 08:30 Intake & Output 06/20/21 06/21/21 06/21/21 18:59 06:59 18:59 Intake Total 1200 240 Output Total 800 Balance 1200 -800 240 Weight 98 kg 98 kg Intake: Oral 1200 240 Output: Urine 800 Other: Voiding Method Toilet Toilet Toilet Bedside Commode Bedside Commode - Labs CBC & Chem 7: 06/20/21 10:14 06/20/21 10:14 Labs: Abnormal Lab Results - Last 24 Hours (Table) 11/25/21 Range/Units 10:14 Sodium 134 L (137-145) mmol/L Chloride 96 L (98-107) mmol/L Carbon Dioxide 31 H (22-30) mmol/L BUN 29 H (7-17) mg/dL
[2021-06-22] MEDS: HYDROcodone/APAP 7.5-325MG 1 EACH TAB PO PRN (04:23)
[2021-06-22] MEDS: ALBUTEROL HFA INHALER INHALATION SCH ×4 (07:40→19:35)
--- NOTE | 2021-06-22 08:15 | XR ---
EXAMINATION TYPE: XR chest 1V portable DATE OF EXAM: 06/22/2021 CLINICAL HISTORY: Difficulty breathing and covid infection progress study. TECHNIQUE: Single AP portable upright view of the chest is obtained. COMPARISON: Chest x-ray from 4 days earlier FINDINGS: Spinal stimulator device lower thoracic spinal canal redemonstrated. Persistent cardiomega ly with atherosclerotic and ectatic thoracic aorta causing right-sided tracheal deviation and overlyi ng loop recorder. Chronic right mid lung linear scarring redemonstrated. Continued left mid to basila r opacity. No pleural effusion or pneumothorax seen bilaterally. IMPRESSION: Cardiomegaly and chronic changes with persistent left mid to lower lung acute infiltrate and/or atelectasis. No significant change from most recent x-ray.
[2021-06-22] MEDS: CLINDAMYCIN PHOSP 1% TOPICAL SCH (08:53)
[2021-06-22] MEDS: CLOBETASOL 0.05% TOPICAL SCH (08:53)
[2021-06-22 08:58] LABS: Basophils % (A) 0 %; Eosinophils % (A) 0 %; HCT 46.8 % (34.0-46.0); HGB 15.1 gm/dL (11.4-16.0); Lymphocytes # (A) 1.5 k/uL (1.0-4.8); Lymphocytes % (A) 17 %; MCH 28.1 pg (25.0-35.0); MCHC 32.3 g/dL (31.0-37.0); Mean Platelet Volume 9.2; Monocytes # (A) 0.2 k/uL (0-1.0); Monocytes % (A) 2 %; Neutrophils # (A) 7.2 k/uL (1.3-7.7); Neutrophils % (A) 80 %; Platelet Count 203 k/uL (150-450); RBC 5.38 m/uL (3.80-5.40); RDW 14.5 % (11.5-15.5)
[2021-06-22] MEDS: ZINC SULFATE 220 MG CAP PO SCH (08:58)
[2021-06-22] MEDS: PREGABALIN 75 MG CAP PO SCH ×2 (08:58→20:23)
[2021-06-22] MEDS: ATORVASTATIN 40 MG TAB PO SCH (08:58)
[2021-06-22] MEDS: APIXABAN 5 MG TAB PO SCH ×2 (08:58→20:23)
[2021-06-22] MEDS: FUROSEMIDE 20 MG TAB PO SCH (08:58)
[2021-06-22] MEDS: METOPROLOL SUCCINATE (ER) 25 MG TAB.ER.24H PO SCH (08:58)
[2021-06-22] MEDS: TRIAMTERENE-HCTZ 37.5-25MG 1 EACH CAP PO SCH (08:58)
[2021-06-22] MEDS: CHOLECALCIFEROL 25 MCG (1000 IU) TABLET PO SCH (08:58)
[2021-06-22] MEDS: DEXAMETHASONE SOD PHOSPHATE 10 MG/ML 1 ML VIAL IVP SCH (08:59)
[2021-06-22] MEDS: DULoxetine HCL 20 MG CAPSULE.DR PO SCH (08:59)
[2021-06-22] MEDS: ASCORBIC ACID 500 MG TAB PO SCH (08:59)
[2021-06-22 09:11] LABS: Calcium 9.5 mg/dL (8.4-10.2); Potassium 3.4 mmol/L (3.5-5.1)
[2021-06-22] MEDS ORDERED: POTASSIUM CHLORIDE ER 20 MEQ TAB.ER PO STA (09:27)
--- NOTE | 2021-06-22 15:00 | P.PN ---
Subjective Progress Note Date: 06/22/21 This is a 86-year-old female who was recently admitted with acute Covid 19 infection and also covid 19 interstitial bilateral pneumonia and is being closely monitored. Patient has completed Remdesivir and maintained on dexamethasone, oral anticoagulant, vitamin and zinc supplements with ID and pulmonary Dr. Benitez following closely. Weaning FI02 as tolerated and currently maintained on 9L HF via NC. Will repeat chest xray and am labs. 06/22/2021 Patient is seen and evaluated in follow-up currently maintained on 10 L high flow and will continue to wean as tolerated. Chest x-ray was ordered today sh owing cardiomegaly and chronic changes with persistent left mid to lower lung acute infiltrate and/or atelectasis with no significant changes from most recent x-ray and will add incentive spirometer. Encouraged increase activity as tolerated as patient is weak and will have PT evaluate the patient. Patient states she wants to go home with family once discharged. Potassium mildly low at 3.4 and will replace and repeat a.m. labs. Labs: White blood count is 9.0, hemoglobin is 15.1, platelets are 203, sodium is 134, potassium is 3.4, creatinine is 1.02, calcium is 9.5. Review of systems: Constitutional: No reports of fatigue, fever, or chills Cardiovascular: No reports of chest pain or palpitations Respiratory: reports of shortness of breath and dyspnea with minimal exertion GI: No reports of nausea, vomiting, or diarrhea : No reports of dysuria or retention Neurovascular: No reports of numbness or weakness All medications have been reviewed Active Medications Acetaminophen (Acetaminophen Tab 325 Mg Tab) 650 mg PO Q6HR PRN PRN Reason: Fever and/ or MILD Pain Hydrocodone Bitart/Acetaminophen (Hydrocodone/Apap 7.5-325mg 1 Each Tab) 1 each PO BID PRN PRN Reason: Moderate to Severe Pain Last Admin: 06/22/21 04:23 Dose: 1 each Documented by: Albuterol Sulfate (Albuterol Hfa Inhaler) 2 puff INHALATION RT-QID [facility] Last Admin: 06/22/21 11:23 Dose: 2 puff Documented by: Apixaban (Apixaban 5 Mg Tab) 5 mg PO BID [facility]; Protocol Last Admin: 06/22/21 08:58 Dose: 5 mg Documented by: Ascorbic Acid (Ascorbic Acid 500 Mg Tab) 500 mg PO DAILY [facility] Last Admin: 06/22/21 08:59 Dose: 500 mg Documented by: Atorvastatin Calcium (Atorvastatin 40 Mg Tab) 40 mg PO DAILY [facility] Last Admin: 06/22/21 08:58 Dose: 40 mg Documented by: Cholecalciferol (Cholecalciferol 25 Mcg (1000 Iu) Tablet) 25 mcg PO DAILY [facility] Last Admin: 06/22/21 08:58 Dose: 25 mcg Documented by: Dexamethasone Sodium Phosphate (Dexamethasone Sod Phosphate 10 Mg/Ml 1 Ml Vial) 6 mg IVP DAILY [facility] Last Admin: 06/22/21 08:59 Dose: 6 mg Documented by: Diphenhydramine HCl (Diphenhydramine 50 Mg/Ml 1 Ml Vial) 25 mg IVP Q4HR PRN PRN Reason: Allergy Symptoms Last Admin: 06/16/21 10:49 Dose: 25 mg Documented by: Duloxetine HCl (Duloxetine Hcl 20 Mg Capsule.Dr) 20 mg PO DAILY [facility] Last Admin: 06/22/21 08:59 Dose: 20 mg Documented by: Fluticasone Propionate (Fluticasone 50mcg/[place] Nasal 16gm) 1 spray EA NOSTRIL DAILY PRN PRN Reason: Allergy Symptoms Furosemide (Furosemide 20 Mg Tab) 20 mg PO DAILY [facility] Last Admin: 06/22/21 08:58 Dose: 20 mg Documented by: Metoprolol Succinate (Metoprolol Succinate (Er) 25 Mg Tab.Er.24h) 25 mg PO DAILY [facility] Last Admin: 06/22/21 08:58 Dose: 25 mg Documented by: Naloxone HCl (Naloxone 0.4 Mg/Ml 1 Ml Vial) 0.2 mg IV Q2M PRN PRN Reason: Opioid Reversal Non-Formulary Medication (Clobetasol 0.05% Solution) 1 applic TOPICAL DAILY [facility] Last Admin: 06/22/21 08:53 Dose: Not Given Documented by: Non-Formulary Medication (Clindamycin Phosp 1% Lotion) 1 applic TOPICAL DAILY [facility] Last Admin: 06/22/21 08:53 Dose: Not Given Documented by: Pregabalin (Pregabalin 75 Mg Cap) 150 mg PO BID [facility] Last Admin: 06/22/21 08:58 Dose: 150 mg Documented by: Ropinirole HCl (Ropinirole Hcl 1 Mg Tab) 3 mg PO BID [facility] Last Admin: 06/22/21 08:58 Dose: 3 mg Documented by: Triamterene/Hydrochlorothiazide (Triamterene-Hctz 37.5-25mg 1 Each Cap) 1 each PO DAILY [facility] Last Admin: 06/22/21 08:58 Dose: 1 each Documented by: Zinc Sulfate (Zinc Sulfate 220 Mg Cap) 220 mg PO DAILY [facility] Last Admin: 06/22/21 08:58 Dose: 220 mg Documented by: Physical exam: Gen: This is a 86-year-old female who is awake, alert and oriented 3, well- developed, well-nourished..Extremely hard of hearing. Temp is 98.1 F, pulse is 60, respirations are 18, blood pressure is 146/64, oxygen saturation is 92% on 10 L via high flow nasal cannula HEENT: Head is atraumatic, normocephalic. Pupils equal, round. Sclerae is anicteric. NECK: Supple. No JVD. No lymphadenopathy. No thyromegaly. LUNGS: Breath sounds are diminished at the bases with no wheezing course rhonchi noted. No intercostal retractions. HEART: S1, S2 are muffled ABDOMEN: Soft. Obese. Bowel sounds are present. No masses. No tenderness. EXTREMITIES: No pedal edema. No calf tenderness. NEUROLOGICAL: Alert and oriented 3, no focal deficits Assessment: Acute COVID-19 infection with acute COVID-19 bilateral interstitial pneumonia with acute hypoxic respiratory failure, present on admission Troponin 0.04, possibly secondary to COVID-19 with acute non-ST segment elevation myocardial infarction unlikely per cardiology Elevated plasma lactic acid, possibly secondary to dehydration, present on admission Status post BAM infusion History of atrial fibrillation, intermittent Status post Remdesivir History of CVA, TIA chronic obstructive pulmonary disease, acute exacerbation Hypertension history of pneumonia history of chronic low back pain history of ovarian cancer History of Clostridium difficile colitis history of back surgery, degenerative joint disease history of hysterectomy history depression obesity with a body mass index of 42.2 extremely hard of hearing No code, no CPR, no vent Plan: Recommend to continue with current medications and management and symptomatic treatment. Continue to wean FI02 as tolerated. Patient continued at 10L high flow. Pulmonary and ID following. Chest x-ray shows cardiomegaly and chronic changes with persistent left mid to lower lung acute infiltrate and ratel ectasis with no significant change from most recent x-ray. Patient has completed remdesivir and continues on IV dexamethasone and vitamin and zinc supplements. Encourage increased activity as tolerated. Add incentive spirometer and discussed with the nurse about keeping the room warm and encouraging increased activity and using the incentive spirometer at least 10 times every hour while awake. Potassium 3.4 today and will replace and repeat a.m. labs. Due to multiple complex medical issues prognosis is guarded. Will Continue to monitor closely. Objective - Vital Signs Vital signs: Vital Signs Temp 98.1 F 06/22/21 08:58 Pulse 60 06/22/21 08:58 Resp 18 06/22/21 08:58 BP 146/64 06/22/21 08:58 Pulse Ox 92 L 06/22/21 08:58 Intake & Output 06/21/21 06/22/21 06/22/21 18:59 06:59 18:59 Intake Total 770 190 Output Total 300 Balance 470 190 Weight 98 kg 101 kg Intake: IV 10 10 Invasive Line 2 10 10 Oral 760 180 Output: Urine 300 Other: Voiding Method Toilet Toilet Toilet Bedside Commode Bedside Commode Bedside Commode # Voids 2 1 - Labs CBC & Chem 7: 06/22/21 08:05 06/22/21 08:05 Labs: Abnormal Lab Results - Last 24 Hours (Table) 06/22/21 06/22/21 Range/Units 08:05 08:05 Hct 46.8 H (34.0-46.0) % Sodium 134 L (137-145) mmol/L Potassium 3.4 L (3.5-5.1) mmol/L Chloride 94 L (98-107) mmol/L Carbon Dioxide 34 H (22-30) mmol/L BUN 33 H (7-17) mg/dL Glucose 127 H (74-99) mg/dL
--- NOTE | 2021-06-22 18:02 | PN ---
PROGRESS NOTE DATE OF SERVICE: 06/22/2021 REASON FOR FOLLOWUP: COVID-19 pneumonia. INTERVAL HISTORY: The patient is afebrile. The patient is breathing more comfortably. The patient denies having any chest pain. No shortness of breath. No worsening cough. No abdominal pain, no diarrhea. PHYSICAL EXAMINATION: Blood pressure 139/60 with a pulse of 69, temperature 98.2. She is 91% on 7 L nasal cannula. General description is an elderly female up in the bed in no distress. Respiratory system: Unlabored breathing, decreased intensity of breath sounds. No wheeze. Heart S1, S2. Regular rate and rhythm. Abdomen soft, no tenderness. LABS: Hemoglobin is 15.2, white count 9.3, creatinine 1.02. DIAGNOSTIC IMPRESSION AND PLAN: Patient with acute COVID-19 pneumonia in this patient who has completed her Remdesivir therapy, currently on Decadron Eliquis, zinc and ascorbic acid currently. Slowly wean off her oxygen. Continue supportive care. MMODL / IJN: [id number] /
[2021-06-23] MEDS: HYDROcodone/APAP 7.5-325MG 1 EACH TAB PO PRN (05:42)
[2021-06-23] MEDS: ALBUTEROL HFA INHALER INHALATION SCH ×4 (08:17→21:21)
[2021-06-23 09:06] LABS: Calcium 9.5 mg/dL (8.4-10.2); Potassium 3.7 mmol/L (3.5-5.1)
[2021-06-23] MEDS: TRIAMTERENE-HCTZ 37.5-25MG 1 EACH CAP PO SCH (10:30)
[2021-06-23] MEDS: APIXABAN 5 MG TAB PO SCH ×2 (10:30→21:00)
[2021-06-23] MEDS: PREGABALIN 75 MG CAP PO SCH ×2 (10:30→21:00)
[2021-06-23] MEDS: ZINC SULFATE 220 MG CAP PO SCH (10:31)
[2021-06-23] MEDS: DULoxetine HCL 20 MG CAPSULE.DR PO SCH (10:31)
[2021-06-23] MEDS: ATORVASTATIN 40 MG TAB PO SCH (10:31)
[2021-06-23] MEDS: METOPROLOL SUCCINATE (ER) 25 MG TAB.ER.24H PO SCH (10:31)
[2021-06-23] MEDS: FUROSEMIDE 20 MG TAB PO SCH (10:31)
[2021-06-23] MEDS: ASCORBIC ACID 500 MG TAB PO SCH (10:31)
[2021-06-23] MEDS: DEXAMETHASONE SOD PHOSPHATE 10 MG/ML 1 ML VIAL IVP SCH (10:32)
[2021-06-23] MEDS: CLINDAMYCIN PHOSP 1% TOPICAL SCH (10:33)
[2021-06-23] MEDS: CLOBETASOL 0.05% TOPICAL SCH (10:33)
--- NOTE | 2021-06-23 22:43 | PN ---
PROGRESS NOTE DATE OF SERVICE: 06/23/2021 REASON FOR FOLLOWUP: COVID-19 pneumonia. INTERVAL HISTORY: The patient is afebrile. The patient is breathing comfortably. The patient is currently down to 5 L nasal cannula. The patient denies having any chest pain or worsening cough or sputum production. No abdominal pain or diarrhea. PHYSICAL EXAMINATION: Blood pressure 115/58 with a pulse of 60, temperature 98.2. She is 94% on 5 L nasal cannula. General description is an elderly female up in the chair in no distress. Respiratory system: Unlabored breathing, decreased intensity of breath sounds. No wheeze. Heart S1, S2. Regular rate and rhythm. Abdomen soft, no tenderness. LABS: BUN of 33, creatinine 1.0. DIAGNOSTIC IMPRESSION AND PLAN: Patient with acute COVID-19 pneumonia in this patient who seems to have shown overall clinical improvement. Patient to continue on 5 L nasal cannula. The patient has completed a five-day course of remdesivir and is currently on Eliquis, dexamethasone, zinc and ascorbic acid.; to continue along with respiratory support and monitor clinical course closely. MMODL / IJN: [id number] /
--- NOTE | 2021-06-24 00:03 | P.PN ---
Subjective Progress Note Date: 06/23/21 This is a 86-year-old female who was recently admitted with acute Covid 19 infection and also covid 19 interstitial bilateral pneumonia and is being closely monitored. Patient has completed Remdesivir and maintained on dexamethasone, oral anticoagulant, vitamin and zinc supplements with ID and pulmonary Dr. Benitez following closely. Weaning FI02 as tolerated and currently maintained on 9L HF via NC. Will repeat chest xray and am labs. 06/22/2021 Patient is seen and evaluated in follow-up currently maintained on 10 L high flow and will continue to wean as tolerated. Chest x-ray was ordered today sh owing cardiomegaly and chronic changes with persistent left mid to lower lung acute infiltrate and/or atelectasis with no significant changes from most recent x-ray and will add incentive spirometer. Encouraged increase activity as tolerated as patient is weak and will have PT evaluate the patient. Patient states she wants to go home with family once discharged. Potassium mildly low at 3.4 and will replace and repeat a.m. labs. 06/23/2021 Patient is seen in follow up this morning and being closely monitored. Patient being followed by ID and pulmonary. Patient currently maintained on 4-5 L via NC and maintaining 02 saturations of 90%. Repeat labs within normal limits. Will have PT/OT evaluate the patient in the am. Continue to wean FI02 as tolerated. Labs: Sodium is 136, potassium is 3.7, chloride is 95, carbon dioxide is 31, BUN is 33, creatinine is 1.00, calcium is 9.5 Review of systems: Constitutional: No reports of fatigue, fever, or chills Cardiovascular: No reports of chest pain or palpitations Respiratory: reports of shortness of breath and dyspnea with minimal exertion with no worsening GI: No reports of nausea, vomiting, or diarrhea : No reports of dysuria or retention Neurovascular: No reports of numbness or weakness All medications have been reviewed Active Medications Acetaminophen (Acetaminophen Tab 325 Mg Tab) 650 mg PO Q6HR PRN PRN Reason: Fever and/ or MILD Pain Hydrocodone Bitart/Acetaminophen (Hydrocodone/Apap 7.5-325mg 1 Each Tab) 1 each PO BID PRN PRN Reason: Moderate to Severe Pain Last Admin: 06/23/21 05:42 Dose: 1 each Documented by: Albuterol Sulfate (Albuterol Hfa Inhaler) 2 puff INHALATION RT-QID [facility] Last Admin: 06/23/21 11:51 Dose: 2 puff Documented by: Apixaban (Apixaban 5 Mg Tab) 5 mg PO BID [facility]; Protocol Last Admin: 06/23/21 10:30 Dose: 5 mg Documented by: Ascorbic Acid (Ascorbic Acid 500 Mg Tab) 500 mg PO DAILY [facility] Last Admin: 06/23/21 10:31 Dose: 500 mg Documented by: Atorvastatin Calcium (Atorvastatin 40 Mg Tab) 40 mg PO DAILY [facility] Last Admin: 06/23/21 10:31 Dose: 40 mg Documented by: Cholecalciferol (Cholecalciferol 25 Mcg (1000 Iu) Tablet) 25 mcg PO DAILY [facility] Last Admin: 06/22/21 08:58 Dose: 25 mcg Documented by: Dexamethasone Sodium Phosphate (Dexamethasone Sod Phosphate 10 Mg/Ml 1 Ml Vial) 6 mg IVP DAILY [facility] Last Admin: 06/23/21 10:32 Dose: 6 mg Documented by: Diphenhydramine HCl (Diphenhydramine 50 Mg/Ml 1 Ml Vial) 25 mg IVP Q4HR PRN PRN Reason: Allergy Symptoms Last Admin: 06/16/21 10:49 Dose: 25 mg Documented by: Duloxetine HCl (Duloxetine Hcl 20 Mg Capsule.Dr) 20 mg PO DAILY [facility] Last Admin: 06/23/21 10:31 Dose: 20 mg Documented by: Fluticasone Propionate (Fluticasone 50mcg/[place] Nasal 16gm) 1 spray EA NOSTRIL DAILY PRN PRN Reason: Allergy Symptoms Furosemide (Furosemide 20 Mg Tab) 20 mg PO DAILY [facility] Last Admin: 06/23/21 10:31 Dose: 20 mg Documented by: Metoprolol Succinate (Metoprolol Succinate (Er) 25 Mg Tab.Er.24h) 25 mg PO DAILY [facility] Last Admin: 06/23/21 10:31 Dose: 25 mg Documented by: Naloxone HCl (Naloxone 0.4 Mg/Ml 1 Ml Vial) 0.2 mg IV Q2M PRN PRN Reason: Opioid Reversal Non-Formulary Medication (Clobetasol 0.05% Solution) 1 applic TOPICAL DAILY [facility] Last Admin: 06/23/21 10:33 Dose: Not Given Documented by: Non-Formulary Medication (Clindamycin Phosp 1% Lotion) 1 applic TOPICAL DAILY [facility] Last Admin: 11/28/21 10:33 Dose: Not Given Documented by: Pregabalin (Pregabalin 75 Mg Cap) 150 mg PO BID [facility] Last Admin: 06/23/21 10:30 Dose: 150 mg Documented by: Ropinirole HCl (Ropinirole Hcl 1 Mg Tab) 3 mg PO BID [facility] Last Admin: 06/23/21 10:31 Dose: 3 mg Documented by: Triamterene/Hydrochlorothiazide (Triamterene-Hctz 37.5-25mg 1 Each Cap) 1 each PO DAILY [facility] Last Admin: 06/23/21 10:30 Dose: 1 each Documented by: Zinc Sulfate (Zinc Sulfate 220 Mg Cap) 220 mg PO DAILY [facility] Last Admin: 06/23/21 10:31 Dose: 220 mg Documented by: Physical exam: Gen: This is a 86-year-old female who is awake, alert and oriented 3, well- developed, well-nourished..Extremely hard of hearing. Temp is 98.6 F, pulse is 60, respirations are 18, blood pressure is 124/57, oxygen saturation is 93% on 5 L via high flow nasal cannula HEENT: Head is atraumatic, normocephalic. Pupils equal, round. Sclerae is anicteric. NECK: Supple. No JVD. No lymphadenopathy. No thyromegaly. LUNGS: Breath sounds are diminished at the bases with no wheezing, course rhonchi noted. No intercostal retractions. HEART: S1, S2 are muffled ABDOMEN: Soft. Obese. Bowel sounds are present. No masses. No tenderness. EXTREMITIES: No pedal edema. No calf tenderness. NEUROLOGICAL: Alert and oriented 3, no focal deficits Assessment: Acute COVID-19 infection with acute COVID-19 bilateral interstitial pneumonia with acute hypoxic respiratory failure, present on admission Troponin 0.04, possibly secondary to COVID-19 with acute non-ST segment elevation myocardial infarction unlikely per cardiology Elevated plasma lactic acid, possibly secondary to dehydration, present on admission Status post BAM infusion History of atrial fibrillation, intermittent Status post Remdesivir History of CVA, TIA chronic obstructive pulmonary disease, acute exacerbation Hypertension history of pneumonia history of chronic low back pain history of ovarian cancer History of Clostridium difficile colitis history of back surgery, degenerative joint disease history of hysterectomy history depression obesity with a body mass index of 42.2 extremely hard of hearing No code, no CPR, no vent Plan: Recommend to continue with current medications and management and symptomatic treatment. Continue to wean FI02 as tolerated. Patient continued at 4-5L high flow. Pulmonary and ID following. Patient has completed remdesivir and continues on IV dexamethasone and vitamin and zinc supplements. Encourage increased activity as tolerated. Encouraged incentive spirometer at least 10 times every hours while awake. Patient states she is not achieving over 500, but has been using. Will have PT/OT evaluate the patient and discuss with case management about discharge planning. Due to multiple complex medical issues pro gnosis is guarded. Will Continue to monitor closely. Possible discharge in 24 hours. Objective - Vital Signs Vital signs: Vital Signs Temp 98.2 F 06/23/21 03:13 Pulse 53 L 06/23/21 03:13 Resp 18 06/23/21 03:13 BP 129/68 06/23/21 03:13 Pulse Ox 93 L 06/23/21 03:13 Intake & Output 06/22/21 06/23/21 06/23/21 18:59 06:59 18:59 Intake Total 1220 Balance 1220 Intake: IV 20 Invasive Line 2 20 Oral 1200 Other: Voiding Method Toilet Toilet Bedside Commode Bedside Commode # Voids 2 1 - Labs CBC & Chem 7: 06/22/21 08:05 06/23/21 08:00 Labs: Abnormal Lab Results - Last 24 Hours (Table) 06/22/21 06/22/21 Range/Units 08:05 08:05 Hct 46.8 H (34.0-46.0) % Sodium 134 L (137-145) mmol/L Potassium 3.4 L (3.5-5.1) mmol/L Chloride 94 L (98-107) mmol/L Carbon Dioxide 34 H (22-30) mmol/L BUN 33 H (7-17) mg/dL Glucose 127 H (74-99) mg/dL
[2021-06-24 04:13] VITALS: RESP 18
[2021-06-24] MEDS: ASCORBIC ACID 500 MG TAB PO SCH (08:25)
[2021-06-24] MEDS: TRIAMTERENE-HCTZ 37.5-25MG 1 EACH CAP PO SCH (08:25)
[2021-06-24] MEDS: METOPROLOL SUCCINATE (ER) 25 MG TAB.ER.24H PO SCH (08:25)
[2021-06-24] MEDS: DULoxetine HCL 20 MG CAPSULE.DR PO SCH (08:25)
[2021-06-24] MEDS: CHOLECALCIFEROL 25 MCG (1000 IU) TABLET PO SCH (08:26)
[2021-06-24] MEDS: ZINC SULFATE 220 MG CAP PO SCH (08:26)
[2021-06-24] MEDS: ATORVASTATIN 40 MG TAB PO SCH (08:26)
[2021-06-24] MEDS: PREGABALIN 75 MG CAP PO SCH (08:26)
[2021-06-24] MEDS: APIXABAN 5 MG TAB PO SCH (08:26)
[2021-06-24] MEDS: FUROSEMIDE 20 MG TAB PO SCH (08:26)
[2021-06-24] MEDS: DEXAMETHASONE SOD PHOSPHATE 10 MG/ML 1 ML VIAL IVP SCH (08:27)
[2021-06-24] MEDS: CLINDAMYCIN PHOSP 1% TOPICAL SCH (08:38)
[2021-06-24] MEDS: CLOBETASOL 0.05% TOPICAL SCH (08:38)
[2021-06-24] MEDS: ALBUTEROL HFA INHALER INHALATION SCH ×3 (09:31→15:50)
[2021-06-24 11:07] VITALS: BP 144/70; PULSE 67; TEMP 97.7
[2021-06-24 11:34] LABS: Glucose,Whole Blood 308 mg/dL (75-99)
--- NOTE | 2021-06-24 14:44 | P.PN ---
Subjective Progress Note Date: 06/24/21 Principal diagnosis: Acute on chronic hypoxic history failure Acute COVID-19 pneumonia Sleep disorder breathing and sleep apnea Moderate aortic stenosis Sepsis due to COVID-19 pneumonia Chronic atrial fibrillation on anticoagulation with direct oral anticoagulants Chronic multiple medical problems including prior history of CVA, TIA, COPD, hypertension, chronic back pain, ovarian cancer, C. difficile colitis, depression, severe morbid obesity, extremely hard of hearing 06/24/2021, patient seen eval examined during the rounds labs reviewed medications reviewed care plan discussed with staff at length, FiO2 continue to go down, patient currently is on 5 L oxygen still less symptomatic wants to go home, patient has been on 3 L oxygen at home, Decadron can be switched to oral prior to discharge, continue another week to 10 days therapy, would recommend in case patient discharged to follow-up in 2 weeks 06/21/2021, and sitting upright in the bed, still have intermittent cough shortness of breath especially on activity and exertion, referred to have been down to 9 L from 12 L high flow, saturation have been 97%, medications reviewed, 06/20/2021, patient remains on 12 L high flow oxygen but overall no significant deterioration in clinical status and respiratory pattern has been noted, intermittent cough is present, eating comfortably, hemodynamic status stable patient remains afebrile saturations 98%, also on appropriate therapy for COVID- 19 pneumonia seems to be responding appropriately with stablity noted 06/19/2021, patient remains on 12 L high flow oxygen but however oxygen saturation hemodynamic status stable, oxygen saturation 90-94%, patient is visibly less short of breath, but however becomes hypoxic desaturate on activity and exertion and on titrating oxygen down, patient remains on appropriate treatment for COVID-19 pneumonia and acute respiratory failure, 06/18/2021, patient remains short of breath, especially during activity and e xertion desaturate extensively, patient remains on appropriate treatment for COVID-19 pneumonia and respiratory failure, patient remains afebrile, bradycardic, respiratory status stable hemodynamics stable, oxygen saturation is 92% on 12 L high flow oxygen, chest x-ray finding consistent with bilateral infiltrate of COVID-19 pneumonia overall remains stable no significant change has been noted, Patient is a 86-year-old female with a history of chronic hypoxic history failure chronic oxygen therapy at home, usually she is on 3 L nasal cannula, she has other active medical problems ongoing associated with chronic atrial fibrillation on the direct oral anticoagulation hypertension hypertensive cardiovascular disease sleep-disordered breathing and sleep apnea symptoms of progressive for the last 4 days, she is requiring more oxygen than baseline her oral course of prednisone without any relief came into the hospital for further evaluation and intervention and treatment, her admit x-ray is significant for bilateral interstitial infiltrate streaky nature with pulmonary fibrosis, significant for significant LVH, ejection fraction is 60%, dilated left atria, moderate to severe aortic sclerosis and aortic stenosis, Workup in the emergency department has been significant for lactic acidosis with a lactic acid of 2.3, elevated troponin, COVID-19 came back positive, patient is status post IV antibiotic infusion, being continued on bronchodilator along with oral diuretic anticoagulation with IV steroids in the form Decadron 6 mg daily, she is getting IV in remesivir infusion as well per protocol Objective - Vital Signs Vital signs: Vital Signs Temp 97.7 F 06/24/21 08:00 Pulse 67 06/24/21 08:00 Resp 18 06/24/21 08:00 BP 144/70 06/24/21 08:00 Pulse Ox 92 L 06/24/21 09:32 Intake & Output 06/23/21 06/24/21 06/24/21 18:59 06:59 18:59 Intake Total 608 10 120 Output Total 800 Balance -192 10 120 Weight 100.5 kg Intake: IV 10 Invasive Line 2 10 Oral 608 120 Output: Urine 800 Other: Voiding Method Toilet Bedside Commode # Voids 1 0 - Exam - Constitutional General appearance: disheveled, mild distress, morbidly obese - EENT Eyes: PERRLA Ears: bilateral: normal - Neck Neck: normal ROM Carotids: bilateral: upstroke normal Thyroid: bilateral: normal size - Respiratory Respiratory: bilateral: diminished - Cardiovascular Rhythm: regular Heart sounds: normal: S1, S2 - Gastrointestinal General gastrointestinal: decreased bowel sounds, distended - Neurologic Neurologic: CNII-XII intact - Musculoskeletal Musculoskeletal: gait normal, generalized weakness - Psychiatric Psychiatric: A&O x's 3, appropriate affect, intact judgment & insight - Labs CBC & Chem 7: 06/22/21 08:05 06/23/21 08:00 Labs: Abnormal Lab Results - Last 24 Hours (Table) 06/24/21 Range/Units 11:32 POC Glucose (mg/dL) 308 H (75-99) mg/dL Assessment and Plan Assessment: Acute on chronic hypoxic history failure Acute COVID-19 pneumonia Sleep disorder breathing and sleep apnea Moderate aortic stenosis Sepsis due to COVID-19 pneumonia Chronic atrial fibrillation on anticoagulation with direct oral anticoagulants Chronic multiple medical problems including prior history of CVA, TIA, COPD, hypertension, chronic back pain, ovarian cancer, C. difficile colitis, depression, severe morbid obesity, extremely hard of hearing Plan: Patient is being appropriately treated with IV Decadron, can be switched to oral the time of discharge status post IV REMdesivir, bronchodilator, and anticoagulation with direct oral anticoagulant Patient is advise if BiPAP machine from home can be brought brought in so she can use it each night and when necessary during day Continue O2 and titrate down as tolerated to baseline of 3 L nasal cannula Follow closely Time with Patient: Greater than 30
--- NOTE | 2021-06-24 21:12 | P.PN ---
Progress Note - Text Progress Note Date: 06/24/21 REASON FOR FOLLOWUP: COVID-19 pneumonia. INTERVAL HISTORY: The patient remains to be afebrile. The patient is breathing comfortably. The patient is currently down to 4 L nasal cannula. The patient denies having any chest pain or worsening cough or sputum production. No abdominal pain or diarrhea. PHYSICAL EXAMINATION: Blood pressure 110/60 with a pulse of 62, temperature 98.2. She is 94% on 5 L nasal cannula. General description is an elderly female up in the chair in no distress. Respiratory system: Unlabored breathing, decreased intensity of breath sounds. No wheeze. Heart S1, S2. Regular rate and rhythm. Abdomen soft, no tenderness. LABS: reviewed DIAGNOSTIC IMPRESSION AND PLAN: Patient with acute COVID-19 pneumonia in this patient who seems to have shown overall clinical improvement. Patient has completed a five-day course of remdesivir and to contiue with Eliquis, zinc and ascorbic acid on discharge and close out patient follow up
--- NOTE | 2021-06-25 09:05 | P.DS ---
Providers Date of admission: 06/15/21 16:38 Expected date of discharge: 06/24/21 Attending physician: Anibal Ferrari Consults: 06/15/21 16:34 Consult Physician Urgent Consulting Provider: [facility] Consult Reason/Comments: elevated trop Do you want consulting provider notified?: Yes Consult Physician Urgent Consulting Provider: Pardeep Benitez Consult Reason/Comments: acute/chronic respiratory insuff, covid infection Do you want consulting provider notified?: Yes 06/15/21 21:03 Consult Physician Routine Consulting Provider: Tamika Allen Consult Reason/Comments: covid-remdesivir? Do you want consulting provider notified?: Yes Primary care physician: Shira Ortega [facility] Course: Final diagnosis Acute COVID-19 infection with acute COVID-19 bilateral interstitial pneumonia with acute hypoxic respiratory failure, present on admission Troponin 0.04, possibly secondary to COVID-19 with acute non-ST segment elevation myocardial infarction unlikely per cardiology Elevated plasma lactic acid, possibly secondary to dehydration, present on admission Status post BAM infusion History of atrial fibrillation, intermittent Status post Remdesivir History of CVA, TIA chronic obstructive pulmonary disease, acute exacerbation Hypertension history of pneumonia history of chronic low back pain history of ovarian cancer History of Clostridium difficile colitis history of back surgery, degenerative joint disease history of hysterectomy history depression obesity with a body mass index of 42.2 extremely hard of hearing No code, no CPR, no vent Discharge disposition Patient is being discharged in a stable condition with guarded prognosis to home and will have home care arranged. Patient will follow-up with Dr. Ortega in the outpatient setting upon discharge. Patient is to also follow-up with cardiology and pulmonary Dr. Beintez in the outpatient setting. Patient will continue on vitamin and zinc supplements along with dexamethasone to complete the course. Patient maintained on 5 L via nasal cannula and will titrate as tolerated. Total time taken is greater than 35 minutes. Hospital course This Is an 86-year-old female who was recently admitted with acute COVID-19 infection also acute COVID-19 bilateral interstitial pneumonia and was maintained on Remdesivir along with oral anticoagulation, vitamin, zinc supplements and dexamethasone and will continue with dexamethasone 4 mg daily for the next 4 days to complete the course. Patient normally wears 2-3 L of oxygen via nasal cannula continuously and is currently requiring 4-5 L and will continue. Patient to follow-up with pulmonary in the outpatient setting in 1-2 weeks. Currently no reports of chest pain, worsening shortness of breath, or palpitations. Patient is afebrile. No reports of nausea or vomiting and patient is tolerating diet. Patient will be discharged home today. Gen: This is a 86-year-old female who is awake, alert and oriented 3, well- developed, well-nourished..Extremely hard of hearing. Temp is 98.6 F, pulse is 60, respirations are 18, blood pressure is 124/57, oxygen saturation is 93% on 5 L via high flow nasal cannula HEENT: Head is atraumatic, normocephalic. Pupils equal, round. Sclerae is anicteric. NECK: Supple. No JVD. No lymphadenopathy. No thyromegaly. LUNGS: Breath sounds are diminished at the bases with no wheezing, course rhonchi noted. No intercostal retractions. HEART: S1, S2 are muffled ABDOMEN: Soft. Obese. Bowel sounds are present. No masses. No tenderness. EXTREMITIES: No pedal edema. No calf tenderness. NEUROLOGICAL: Alert and oriented 3, no focal deficits Please refer to medication reconciliation sheet for a list of medications. Patient Condition at Discharge: Stable Plan - Discharge Summary Discharge Rx Participant: No New Discharge Prescriptions: New Zinc Sulfate [Orazinc] 220 mg PO DAILY 30 Days #30 cap Albuterol Inhaler [Ventolin Hfa Inhaler] 2 puff INHALATION RT-QID 30 Days #1 gm Ascorbic Acid [Vitamin C] 500 mg PO DAILY 30 Days #30 tab Cholecalciferol [Vitamin D3 (25 Mcg = 1000 Iu)] 25 mcg PO DAILY 30 Days #30 tablet Dexamethasone [Decadron] 4 mg PO DAILY 4 Days #4 tablet Acetaminophen Tab [Tylenol] 650 mg PO Q6HR PRN tab PRN Reason: Fever and/ or MILD Pain Continue Atorvastatin [Lipitor] 40 mg PO DAILY DULoxetine HCL [Cymbalta] 20 mg PO DAILY Pregabalin [Lyrica] 150 mg PO BID #10 capsule Triamterene-Hctz 37.5-25Mg [Dyazide 37.5-25 Capsule] 1 cap PO DAILY HYDROcodone/APAP 7.5-325MG [[place] 7.5-325] 1 tab PO BID PRN PRN Reason: Pain Ipratropium-Albuterol Nebulize [Duoneb 0.5 mg-3 mg/3 ml Soln] 3 ml INHALATION RT-BID PRN PRN Reason: Shortness Of Breath Apixaban [Eliquis] 5 mg PO BID Fluticasone Nasal [place] [Flonase Nasal [place]] 1 spray EA NOSTRIL DAILY PRN PRN Reason: Allergy Symptoms Metoprolol Succinate [Toprol XL] 25 mg PO DAILY Furosemide [Lasix] 20 mg PO DAILY rOPINIRole HCL [Requip] 3 mg PO BID Triamcinolone 0.1% Ointment [Kenalog 0.1% Ointment] 1 applic TOPICAL DAILY Clobetasol 0.05% Solution 1 applic TOPICAL DAILY Ibuprofen [Motrin] 600 mg PO Q12H PRN PRN Reason: Pain Clindamycin Phosp 1% Lotion 1 applic TOPICAL DAILY Discontinued predniSONE See Taper PO DAILY Discharge Medication List Atorvastatin [Lipitor] 40 mg PO DAILY 08/17/17 [History] DULoxetine HCL [Cymbalta] 20 mg PO DAILY 10/16/17 [History] Pregabalin [Lyrica] 150 mg PO BID #10 capsule 10/19/17 [Rx] HYDROcodone/APAP 7.5-325MG [[place] 7.5-325] 1 tab PO BID PRN 03/15/18 [History] Ipratropium-Albuterol Nebulize [Duoneb 0.5 mg-3 mg/3 ml Soln] 3 ml INHALATION RT-BID PRN 03/15/18 [History] Triamterene-Hctz 37.5-25Mg [Dyazide 37.5-25 Capsule] 1 cap PO DAILY 03/15/18 [History] Apixaban [Eliquis] 5 mg PO BID 12/12/19 [History] Fluticasone Nasal [place] [Flonase Nasal [place]] 1 spray EA NOSTRIL DAILY PRN 12/12/19 [History] Metoprolol Succinate [Toprol XL] 25 mg PO DAILY 12/12/19 [History] Clindamycin Phosp 1% Lotion 1 applic TOPICAL DAILY 06/15/21 [History] Clobetasol 0.05% Solution 1 applic TOPICAL DAILY 06/15/21 [History] Furosemide [Lasix] 20 mg PO DAILY 06/15/21 [History] Ibuprofen [Motrin] 600 mg PO Q12H PRN 06/15/21 [History] Triamcinolone 0.1% Ointment [Kenalog 0.1% Ointment] 1 applic TOPICAL DAILY 06/15/21 [History] rOPINIRole HCL [Requip] 3 mg PO BID 06/15/21 [History] Acetaminophen Tab [Tylenol] 650 mg PO Q6HR PRN tab 06/24/21 [Rx] Albuterol Inhaler [Ventolin Hfa Inhaler] 2 puff INHALATION RT-QID 30 Days #1 gm 06/24/21 [Rx] Ascorbic Acid [Vitamin C] 500 mg PO DAILY 30 Days #30 tab 06/24/21 [Rx] Cholecalciferol [Vitamin D3 (25 Mcg = 1000 Iu)] 25 mcg PO DAILY 30 Days #30 tablet 06/24/21 [Rx] Dexamethasone [Decadron] 4 mg PO DAILY 4 Days #4 tablet 06/24/21 [Rx] Zinc Sulfate [Orazinc] 220 mg PO DAILY 30 Days #30 cap 06/24/21 [Rx] Follow up Appointment(s)/Referral(s): Salomón Watts MD [STAFF PHYSICIAN] - 3 Weeks (message left with sofia richardson, she will call pt) [facility], [NON-STAFF] - Shira Ortega MD [Primary Care Provider] - 07/01/21 3:15 pm Pardeep Benitez MD [STAFF PHYSICIAN] - 1 Week (message left for office to call pt) Patient Instructions/Handouts: Coronavirus Disease 2019 (COVID-19), Heart Attack (DC) Activity/Diet/Wound Care/Special Instructions: Activity Limited until follow-up With primary care provider on discharge Follow-up with pulmonary outpatient Continue taking medications as prescribed Continue oxygen at 5 L until follow-up with pulmonary Continue current diet Discharge Disposition: HOME WITH HOME HEALTH SERVICES
== END 2021-06-24 16:14 | disposition home health service (06) | DRG 177 ==
LOC: EC 13:44 → 3SCARD 16:38
PROVIDERS: ADMIT Hospitalist; ATTEND Hospitalist
PROC: XW033F6 Introduction of Bamlanivimab Monoclonal Antibody into Peripheral Vein, Percutaneous Approach, New Technology Group 6 (ICD-10-PCS; principal; 2021-06-15)
PROC: XW033E5 Introduction of Remdesivir Anti-infective into Peripheral Vein, Percutaneous Approach, New Technology Group 5 (ICD-10-PCS; 2021-06-16)
PROC: 5A0955A Assistance with Respiratory Ventilation, Greater than 96 Consecutive Hours, High Flow/Velocity Cannula (ICD-10-PCS; 2021-06-17)
DX: U07.1 COVID-19 (principal); J96.21 Acute and chronic respiratory failure with hypoxia; J12.82 Pneumonia due to coronavirus disease 2019; J98.11 Atelectasis; Z68.41 Body mass index [BMI] 40.0-44.9, adult; E87.2 Acidosis; H46.9 Unspecified optic neuritis; I48.3 Typical atrial flutter; J44.0 Chronic obstructive pulmonary disease with (acute) lower respiratory infection; J44.1 Chronic obstructive pulmonary disease with (acute) exacerbation; J84.10 Pulmonary fibrosis, unspecified; E66.01 Morbid (severe) obesity due to excess calories; E78.5 Hyperlipidemia, unspecified; G47.30 Sleep apnea, unspecified; G89.29 Other chronic pain; H91.90 Unspecified hearing loss, unspecified ear; I08.0 Rheumatic disorders of both mitral and aortic valves; I11.9 Hypertensive heart disease without heart failure; Z99.81 Dependence on supplemental oxygen; Z66 Do not resuscitate; I25.10 Atherosclerotic heart disease of native coronary artery without angina pectoris; I45.10 Unspecified right bundle-branch block; R77.8 Other specified abnormalities of plasma proteins; I48.0 Paroxysmal atrial fibrillation; M54.50 Low back pain, unspecified; Z79.01 Long term (current) use of anticoagulants; Z79.899 Other long term (current) drug therapy; Z79.52 Long term (current) use of systemic steroids; Z82.49 Family history of ischemic heart disease and other diseases of the circulatory system; Z82.0 Family history of epilepsy and other diseases of the nervous system; Z80.9 Family history of malignant neoplasm, unspecified; Z85.43 Personal history of malignant neoplasm of ovary; Z86.19 Personal history of other infectious and parasitic diseases; Z86.73 Personal history of transient ischemic attack (TIA), and cerebral infarction without residual deficits; Z90.710 Acquired absence of both cervix and uterus; Z98.890 Other specified postprocedural states; Z88.0 Allergy status to penicillin; Z87.01 Personal history of pneumonia (recurrent)
CPT/HCPCS: 36415; 71045; 71046; 80048; 80053; 83605; 83735; 83880; 84145; 84484; 85025; 85379; 85610; 85730; 87635; 93005; 93306; 94640; 94760; 99285

== ENCOUNTER 2021-07-17 15:46 | Emergency (ER) | payer MEDICARE ==
[2021-07-17 15:58] VITALS: RESP 18; TEMP 98.3
--- NOTE | 2021-07-17 16:14 | ED ---
General Adult HPI - General Chief complaint: Shortness of Breath Stated complaint: BUD Time Seen by Provider: 07/17/21 15:55 Source: patient, EMS, RN notes reviewed, old records reviewed Mode of arrival: EMS Limitations: no limitations - History of Present Illness Initial comments: 86 -year-old female presents for evaluation of mild dyspnea and hypoxia. Patient currently on 4 L nasal cannula. She was admitted to this institution for coronavirus about 3 weeks ago. She denies persistent fever. She denies central chest pain. She does reports bilateral lower tremor swelling. - Related Data Home Medications Medication Instructions Recorded Confirmed Atorvastatin [Lipitor] 40 mg PO DAILY 08/17/17 07/17/21 DULoxetine HCL [Cymbalta] 20 mg PO DAILY 10/16/17 07/17/21 HYDROcodone/APAP 7.5-325MG [[place] 1 tab PO BID PRN 03/15/18 07/17/21 7.5-325] Ipratropium-Albuterol Nebulize 3 ml INHALATION RT-BID PRN 03/15/18 07/17/21 [Duoneb 0.5 mg-3 mg/3 ml Soln] Triamterene-Hctz 37.5-25Mg 1 cap PO DAILY 03/15/18 07/17/21 [Dyazide 37.5-25 Capsule] Apixaban [Eliquis] 5 mg PO BID 12/12/19 07/17/21 Fluticasone Nasal [place] [Flonase 1 spray EA NOSTRIL DAILY PRN 12/12/19 07/17/21 Nasal [place]] Metoprolol Succinate [Toprol XL] 25 mg PO DAILY 12/12/19 07/17/21 Clindamycin Phosp 1% Lotion 1 applic TOPICAL DAILY 06/15/21 07/17/21 Clobetasol 0.05% Solution 1 applic TOPICAL DAILY 06/15/21 07/17/21 Furosemide [Lasix] 20 mg PO DAILY 06/15/21 07/17/21 Ibuprofen [Motrin] 600 mg PO Q12H PRN 06/15/21 07/17/21 Triamcinolone 0.1% Ointment 1 applic TOPICAL DAILY 06/15/21 07/17/21 [Kenalog 0.1% Ointment] rOPINIRole HCL [Requip] 3 mg PO BID 06/15/21 07/17/21 Albuterol Inhaler [Ventolin Hfa 2 puff INHALATION RT-QID PRN 07/17/21 07/17/21 Inhaler] Pregabalin [Lyrica] 150 mg PO TID 07/17/21 07/17/21 Previous Rx's Medication Instructions Recorded Acetaminophen Tab [Tylenol] 650 mg PO Q6HR PRN tab 06/24/21 Ascorbic Acid [Vitamin C] 500 mg PO DAILY 30 Days #30 tab 06/24/21 Cholecalciferol [Vitamin D3 (25 25 mcg PO DAILY 30 Days #30 tablet 06/24/21 Mcg = 1000 Iu)] Zinc Sulfate [Orazinc] 220 mg PO DAILY 30 Days #30 cap 06/24/21 Cephalexin [Keflex] 500 mg PO Q12HR #20 cap 07/17/21 Allergies Allergy/AdvReac Type Severity Reaction Status Date / Time Penicillins Allergy Swelling/it Verified 07/17/21 16:11 lolis Review of Systems ROS Statement: Those systems with pertinent positive or pertinent negative responses have been documented in the HPI. ROS Other: All systems not noted in ROS Statement are negative. Past Medical History Past Medical History: Atrial Fibrillation, Cancer, CVA/TIA, Hypertension, Pneumonia Additional Past Medical History / Comment(s): chronic back pain, ovarian cancer History of Any Multi-Drug Resistant Organisms: C-DIFF Date of last positivie culture/infection: stool MDRO Source:: 1998 Past Surgical History: Back Surgery, Hernia Repair, Hysterectomy Additional Past Surgical History / Comment(s): jero knee,brain tumor removed, exp lap Past Anesthesia/Blood Transfusion Reactions: No Reported Reaction Past Psychological History: Depression Smoking Status: Former smoker Past Alcohol Use History: Rare Past Drug Use History: None Reported - Past Family History Father Family Medical History: Myocardial Infarction ([place]) Mother Additional Family Medical History / Comment(s): parkinson's Sister(s) Family Medical History: Cancer General Exam Limitations: no limitations General appearance: alert, in no apparent distress Head exam: Present: atraumatic, normocephalic Eye exam: Present: normal appearance, PERRL ENT exam: Present: normal exam Neck exam: Present: normal inspection. Absent: tenderness, meningismus Respiratory exam: Present: rales, decreased breath sounds. Absent: respiratory distress Cardiovascular Exam: Present: regular rate, normal rhythm GI/Abdominal exam: Present: soft. Absent: distended, tenderness, guarding, rebound Extremities exam: Present: pedal edema Neurological exam: Present: alert, oriented X3, CN II-XII intact. Absent: motor sensory deficit Psychiatric exam: Present: normal affect, normal mood Skin exam: Present: warm, dry, intact. Absent: cyanosis, diaphoretic Course Vital Signs 07/17/21 15:49 Temperature 98.3 F Pulse Rate 67 Respiratory 18 Rate Blood Pressure 125/77 O2 Sat by Pulse 89 L Oximetry EKG Findings - EKG Comments: EKG Findings:: Sinus rhythm with first-degree AV block, right bundle-branch block, rate of 67, SC interval 254 QRS duration 168, qtc 517 Medical Decision Making - Medical Decision Making 86-year-old female with hypoxia, she is monitored in the emergency department on her normal 4 L and does not desaturate she is comfortable. She does have an up trending CO2 which I suspect is from attention the patient has not been wearing her CPAP machine. She is instructed to wear this nightly. She will comply with this request. Additionally she has some minimal signs of UTI and she is started on antibiotics for this. Her daughter is at bedside is agreeable with this plan. They will monitor her breathing at home and return as needed. She will wear CPAP machine at night. Return parameters discussed. - Lab Data Result diagrams: 07/17/21 15:57 07/17/21 15:57 Lab Results 07/17/21 07/17/21 07/17/21 Range/Units 15:57 15:57 15:57 WBC 5.3 (3.8-10.6) k/uL RBC 4.53 (3.80-5.40) m/uL Hgb 13.5 (11.4-16.0) gm/dL Hct 42.4 (34.0-46.0) % MCV 93.5 D (80.0-100.0) fL MCH 29.8 (25.0-35.0) pg MCHC 31.9 (31.0-37.0) g/dL RDW 16.2 H (11.5-15.5) % Plt Count 169 (150-450) k/uL MPV 8.9 Neutrophils % 76 % Lymphocytes % 14 % Monocytes % 6 % Eosinophils % 2 % Basophils % 0 % Neutrophils # 4.0 (1.3-7.7) k/uL Lymphocytes # 0.8 L (1.0-4.8) k/uL Monocytes # 0.3 (0-1.0) k/uL Eosinophils # 0.1 (0-0.7) k/uL Basophils # 0.0 (0-0.2) k/uL Hypochromasia Slight Anisocytosis Slight PT 10.2 (9.0-12.0) sec INR 0.9 (<1.2) APTT 29.4 (22.0-30.0) sec Sodium 135 L (137-145) mmol/L Potassium 4.0 (3.5-5.1) mmol/L Chloride 93 L (98-107) mmol/L Carbon Dioxide 39 H (22-30) mmol/L Anion Gap 3 mmol/L BUN 19 H (7-17) mg/dL Creatinine 0.73 (0.52-1.04) mg/dL Est GFR (CKD-EPI)AfAm 87 (>60 ml/min/1.73 sqM) Est GFR (CKD-EPI)NonAf 76 (>60 ml/min/1.73 sqM) Glucose 88 (74-99) mg/dL Calcium 9.5 (8.4-10.2) mg/dL Magnesium 2.1 (1.6-2.3) mg/dL Total Bilirubin 0.4 (0.2-1.3) mg/dL AST 32 (14-36) U/L ALT 13 (4-34) U/L Alkaline Phosphatase 114 (38-126) U/L Troponin I (0.000-0.034) ng/mL Total Protein 6.3 (6.3-8.2) g/dL Albumin 3.4 L (3.5-5.0) g/dL Urine Color Urine Appearance (Clear) Urine pH (5.0-8.0) Ur Specific [place] (1.001-1.035) Urine Protein (Negative) Urine Glucose (UA) (Negative) Urine Ketones (Negative) Urine Blood (Negative) Urine Nitrite (Negative) Urine Bilirubin (Negative) Urine Urobilinogen (<2.0) mg/dL Ur Leukocyte Esterase (Negative) Urine RBC (0-5) /hpf Urine WBC (0-5) /hpf Ur Squamous Epith Cells (0-4) /hpf Urine Bacteria (None) /hpf Urine Mucus (None) /hpf Coronavirus (PCR) (Not Detectd) 07/17/21 07/17/21 07/17/21 Range/Units 15:57 16:24 16:53 WBC (3.8-10.6) k/uL RBC (3.80-5.40) m/uL Hgb (11.4-16.0) gm/dL Hct (34.0-46.0) % MCV (80.0-100.0) fL MCH (25.0-35.0) pg MCHC (31.0-37.0) g/dL RDW (11.5-15.5) % Plt Count (150-450) k/uL MPV Neutrophils % % Lymphocytes % % Monocytes % % Eosinophils % % Basophils % % Neutrophils # (1.3-7.7) k/uL Lymphocytes # (1.0-4.8) k/uL Monocytes # (0-1.0) k/uL Eosinophils # (0-0.7) k/uL Basophils # (0-0.2) k/uL Hypochromasia Anisocytosis PT (9.0-12.0) sec INR (<1.2) APTT (22.0-30.0) sec Sodium (137-145) mmol/L Potassium (3.5-5.1) mmol/L Chloride (98-107) mmol/L Carbon Dioxide (22-30) mmol/L Anion Gap mmol/L BUN (7-17) mg/dL Creatinine (0.52-1.04) mg/dL Est GFR (CKD-EPI)AfAm (>60 ml/min/1.73 sqM) Est GFR (CKD-EPI)NonAf (>60 ml/min/1.73 sqM) Glucose (74-99) mg/dL Calcium (8.4-10.2) mg/dL Magnesium (1.6-2.3) mg/dL Total Bilirubin (0.2-1.3) mg/dL AST (14-36) U/L ALT (4-34) U/L Alkaline Phosphatase (38-126) U/L Troponin I 0.014 (0.000-0.034) ng/mL Total Protein (6.3-8.2) g/dL Albumin (3.5-5.0) g/dL Urine Color Yellow Urine Appearance Clear (Clear) Urine pH 6.5 (5.0-8.0) Ur Specific [place] 1.026 (1.001-1.035) Urine Protein Trace H (Negative) Urine Glucose (UA) Negative (Negative) Urine Ketones Trace H (Negative) Urine Blood Negative (Negative) Urine Nitrite Negative (Negative) Urine Bilirubin Negative (Negative) Urine Urobilinogen 2.0 (<2.0) mg/dL Ur Leukocyte Esterase Small H (Negative) Urine RBC 2 (0-5) /hpf Urine WBC 18 H (0-5) /hpf Ur Squamous Epith Cells 1 (0-4) /hpf Urine Bacteria Rare H (None) /hpf Urine Mucus Rare H (None) /hpf Coronavirus (PCR) Detected A (Not Detectd) Disposition Clinical Impression: COVID, Chronic respiratory failure with hypoxia, on home oxygen therapy, UTI (urinary tract infection) Disposition: HOME SELF-CARE Condition: Fair Instructions (If sedation given, give patient instructions): Coronavirus Disease 2019 (COVID-19), Urinary Tract Infection in Men (ED) Additional Instructions: Please wear CPAP machine at night. Please return with any worsening respiratory issues. Please return with fever or worsening confusion. Prescriptions: Cephalexin [Keflex] 500 mg PO Q12HR #20 cap Is patient prescribed a controlled substance at d/c from ED?: No Referrals: Shira Ortega MD [Primary Care Provider] - 1-2 days Time of Disposition: 17:46
[2021-07-17 16:19] LABS: Anisocytosis Slight; Basophils % (A) 0 %; Eosinophils # (A) 0.1 k/uL (0-0.7); Eosinophils % (A) 2 %; HCT 42.4 % (34.0-46.0); HGB 13.5 gm/dL (11.4-16.0); Hypochromasia Slight; Lymphocytes # (A) 0.8 k/uL (1.0-4.8); Lymphocytes % (A) 14 %; MCH 29.8 pg (25.0-35.0); MCHC 31.9 g/dL (31.0-37.0); Mean Platelet Volume 8.9; Monocytes # (A) 0.3 k/uL (0-1.0); Monocytes % (A) 6 %; Neutrophils % (A) 76 %; Platelet Count 169 k/uL (150-450); RBC 4.53 m/uL (3.80-5.40); RDW 16.2 % (11.5-15.5); WBC 5.3 k/uL (3.8-10.6)
[2021-07-17 16:20] LABS: MCV 93.5 fL (80.0-100.0)
[2021-07-17 16:24] LABS: INR 0.9 (<1.2); Partial Thromboplastin Time 29.4 sec (22.0-30.0); Prothrombin Time 10.2 sec (9.0-12.0)
[2021-07-17 16:31] LABS: Albumin 3.4 g/dL (3.5-5.0); Calcium 9.5 mg/dL (8.4-10.2); Magnesium 2.1 mg/dL (1.6-2.3); Total Bilirubin 0.4 mg/dL (0.2-1.3); Total Protein 6.3 g/dL (6.3-8.2)
[2021-07-17 17:02] LABS: Appearance,Urine Clear (Clear); Bacteria,Urine Rare /hpf; Bilirubin,Urine Negative (Negative); Blood,Urine Negative (Negative); Color,Urine Yellow; Glucose,Urine (UA) Negative (Negative); Ketones,Urine Trace (Negative); Leukocyte Esterase,Urine Small (Negative); Mucus,Urine Rare /hpf; Nitrite,Urine Negative (Negative); PH, Urine 6.5 (5.0-8.0); Protein,Urine Trace (Negative); RBC,Urine 2 /hpf (0-5); Specific Gravity,Urine 1.026 (1.001-1.035); Squamous Epithelial Cell,Urine 1 /hpf (0-4); WBC,Urine 18 /hpf (0-5)
--- NOTE | 2021-07-17 17:33 | XR ---
EXAMINATION TYPE: XR chest 2V DATE OF EXAM: 07/17/2021 COMPARISON: 06/22/2021 HISTORY: Difficulty breathing TECHNIQUE: 2 views FINDINGS: Heart is enlarged. There is neural stimulator in the lower thoracic spine. There is coarse interstitial density in the mid and lower lung person. There is no pleural effusion. Bony thorax is i ntact. IMPRESSION: Fibrotic changes and interstitial density and atelectasis in the mid and lower lung field s not significantly different than last exam. No obvious heart failure.
[2021-07-17] MEDS ORDERED: CEPHALEXIN 500MG STARTER PACK 4 CAP BTL PO STA (17:44)
[2021-07-17] MEDS ORDERED: cefTRIAXone IN SWFI 1,000 MG/10 ML SYRINGE IVP STA (17:44)
[2021-07-17 18:09] VITALS: BP 120/98; PULSE 66
== END 2021-07-17 18:31 | disposition home or self-care (01) ==
LOC: EC 15:46
DX: U07.1 COVID-19 (principal); J96.11 Chronic respiratory failure with hypoxia; Z99.81 Dependence on supplemental oxygen; N39.0 Urinary tract infection, site not specified; I48.91 Unspecified atrial fibrillation; Z86.73 Personal history of transient ischemic attack (TIA), and cerebral infarction without residual deficits; I10 Essential (primary) hypertension; F32.A Depression, unspecified; Z87.891 Personal history of nicotine dependence; Z72.89 Other problems related to lifestyle
CPT/HCPCS: 36415; 93005; 83880; 80053; 83735; 84484; 85025; 85610; 85730; 81001; 87086; 87635; 71046; 99285; 96374; J0696

== ENCOUNTER 2021-07-27 10:58 | Inpatient (IN) | payer MEDICARE ==
[2021-07-27 12:06] LABS: Albumin 3.5 g/dL (3.5-5.0); Calcium 9.4 mg/dL (8.4-10.2); Potassium 4.2 mmol/L (3.5-5.1); Total Bilirubin 0.3 mg/dL (0.2-1.3); Total Protein 6.2 g/dL (6.3-8.2)
--- NOTE | 2021-07-27 12:06 | XR ---
EXAMINATION TYPE: XR chest 2V DATE OF EXAM: 07/27/2021 11:52 AM COMPARISON: Radiograph 07/17/2021 CLINICAL INDICATION:Female, 86 years old with history of Weakness; TECHNIQUE: Frontal and lateral views of the chest. FINDINGS: Lungs/Pleura: Changes of lungs with similar bandlike right midlung opacity and left basilar and midlu ng opacities. Pulmonary vascularity: Mild pulmonary vascular congestion. Heart/mediastinum: Cardiomediastinal silhouette is unremarkable. Musculoskeletal: No acute osseous pathology. IMPRESSION: Similar scattered air space opacities significantly changed from priors mild pulmonary vascular conge stion. Correlate with serum BNP for exacerbation of congestive heart failure.
[2021-07-27 12:10] LABS: Prothrombin Time 10.4 sec (9.0-12.0)
[2021-07-27 12:13] LABS: Anisocytosis Slight; Basophils % (A) 0 %; Eosinophils # (A) 0.1 k/uL (0-0.7); Eosinophils % (A) 2 %; HCT 42.7 % (34.0-46.0); HGB 13.2 gm/dL (11.4-16.0); Hypochromasia Slight; Lymphocytes # (A) 0.8 k/uL (1.0-4.8); Lymphocytes % (A) 13 %; MCHC 30.8 g/dL (31.0-37.0); Mean Platelet Volume 8.4; Monocytes # (A) 0.3 k/uL (0-1.0); Monocytes % (A) 4 %; Neutrophils # (A) 5.2 k/uL (1.3-7.7); Neutrophils % (A) 80 %; Platelet Count 215 k/uL (150-450); RBC 4.54 m/uL (3.80-5.40); RDW 16.6 % (11.5-15.5); WBC 6.5 k/uL (3.8-10.6)
--- NOTE | 2021-07-27 12:39 | ED ---
General Adult HPI - General Chief complaint: Weakness Stated complaint: Weakness Time Seen by Provider: 07/27/21 12:17 Source: patient, family, EMS, RN notes reviewed Mode of arrival: EMS Limitations: no limitations - History of Present Illness Initial comments: Patient is a pleasant 86-year-old female presenting to the emergency Department with general weakness. Onset of symptoms was the past day or 2, more so today. Patient is unable to get up and help with transfers. No isolated area of weakness or confusion. Patient does have history of hypoxia and CO2 retention. Family is concerned patient unable to live on her own anymore.patient is ext remely hard of hearing - Related Data Home Medications Medication Instructions Recorded Confirmed Atorvastatin [Lipitor] 40 mg PO DAILY 08/17/17 07/27/21 DULoxetine HCL [Cymbalta] 20 mg PO DAILY 10/16/17 07/27/21 HYDROcodone/APAP 7.5-325MG [[place] 1 tab PO BID PRN 03/15/18 07/27/21 7.5-325] Ipratropium-Albuterol Nebulize 3 ml INHALATION RT-BID PRN 03/15/18 07/27/21 [Duoneb 0.5 mg-3 mg/3 ml Soln] Triamterene-Hctz 37.5-25Mg 1 cap PO DAILY 03/15/18 07/27/21 [Dyazide 37.5-25 Capsule] Apixaban [Eliquis] 5 mg PO BID 12/12/19 07/27/21 Fluticasone Nasal [place] [Flonase 1 spray EA NOSTRIL DAILY PRN 12/12/19 07/27/21 Nasal [place]] Metoprolol Succinate [Toprol XL] 25 mg PO DAILY 12/12/19 07/27/21 Clindamycin Phosp 1% Lotion 1 applic TOPICAL DAILY 06/15/21 07/27/21 Clobetasol 0.05% Solution 1 applic TOPICAL DAILY 06/15/21 07/27/21 Furosemide [Lasix] 20 mg PO DAILY 06/15/21 07/27/21 Ibuprofen [Motrin] 600 mg PO Q12H PRN 06/15/21 07/27/21 Triamcinolone 0.1% Ointment 1 applic TOPICAL DAILY 06/15/21 07/27/21 [Kenalog 0.1% Ointment] rOPINIRole HCL [Requip] 3 mg PO BID 06/15/21 07/27/21 Albuterol Inhaler [Ventolin Hfa 2 puff INHALATION RT-QID PRN 07/17/21 07/27/21 Inhaler] Pregabalin [Lyrica] 150 mg PO TID 07/17/21 07/27/21 Previous Rx's Medication Instructions Recorded Acetaminophen Tab [Tylenol] 650 mg PO Q6HR PRN tab 06/24/21 Ascorbic Acid [Vitamin C] 500 mg PO DAILY 30 Days #30 tab 06/24/21 Cholecalciferol [Vitamin D3 (25 25 mcg PO DAILY 30 Days #30 tablet 06/24/21 Mcg = 1000 Iu)] Zinc Sulfate [Orazinc] 220 mg PO DAILY 30 Days #30 cap 06/24/21 Cephalexin [Keflex] 500 mg PO Q12HR #20 cap 07/17/21 Allergies Allergy/AdvReac Type Severity Reaction Status Date / Time Penicillins Allergy Swelling/it Verified 07/27/21 13:29 lolis Review of Systems ROS Statement: Those systems with pertinent positive or pertinent negative responses have been documented in the HPI. ROS Other: All systems not noted in ROS Statement are negative. Constitutional: Denies: fever Eyes: Denies: eye pain ENT: Denies: ear pain Respiratory: Reports: cough. Denies: dyspnea Cardiovascular: Denies: chest pain Endocrine: Denies: fatigue Gastrointestinal: Denies: abdominal pain Genitourinary: Denies: dysuria Musculoskeletal: Denies: back pain Skin: Reports: rash (Bed sore) Neurological: Reports: as per HPI. Denies: confusion Past Medical History Past Medical History: Atrial Fibrillation, Cancer, CVA/TIA, Hypertension, Pneumonia Additional Past Medical History / Comment(s): chronic back pain, ovarian cancer History of Any Multi-Drug Resistant Organisms: C-DIFF Date of last positivie culture/infection: stool MDRO Source:: 1998 Past Surgical History: Back Surgery, Hernia Repair, Hysterectomy Additional Past Surgical History / Comment(s): jero knee,brain tumor removed, exp lap Past Anesthesia/Blood Transfusion Reactions: No Reported Reaction Past Psychological History: Depression Smoking Status: Former smoker Past Alcohol Use History: Rare Past Drug Use History: None Reported - Past Family History Father Family Medical History: Myocardial Infarction ([place]) Mother Additional Family Medical History / Comment(s): parkinson's Sister(s) Family Medical History: Cancer General Exam Limitations: no limitations General appearance: alert, in no apparent distress Head exam: Present: atraumatic, normocephalic Eye exam: Present: normal appearance ENT exam: Present: normal oropharynx Neck exam: Present: normal inspection Respiratory exam: Present: normal lung sounds bilaterally Cardiovascular Exam: Present: regular rate, normal rhythm GI/Abdominal exam: Present: soft. Absent: tenderness Extremities exam: Present: normal inspection Neurological exam: Present: alert, oriented X3, CN II-XII intact. Absent: motor sensory deficit Psychiatric exam: Present: normal affect, normal mood Skin exam: Present: other (Stage I sacral decubitus) Course Vital Signs 07/27/21 11:03 Temperature 98.4 F Pulse Rate 61 Respiratory 18 Rate Blood Pressure 113/75 O2 Sat by Pulse 93 L Oximetry EKG Findings - EKG Comments: EKG Findings:: Sinus rhythm with first-degree AV block, AL 258. Rate 65. QRS 168. QT 48. QTC was 7 left axis. Right bundle branch block. Lateral Q waves. No acute ST change. Medical Decision Making - Medical Decision Making Patient reevaluated and updated. Case discussed with Dr. Ferrari who did evaluate patient and will admit for Dr. Kwok. - Lab Data Result diagrams: 07/27/21 11:45 07/27/21 11:45 Lab Results 07/27/21 07/27/21 07/27/21 Range/Units 11:45 11:45 11:45 WBC 6.5 (3.8-10.6) k/uL RBC 4.54 (3.80-5.40) m/uL Hgb 13.2 (11.4-16.0) gm/dL Hct 42.7 (34.0-46.0) % MCV 94.0 (80.0-100.0) fL MCH 29.0 (25.0-35.0) pg MCHC 30.8 L (31.0-37.0) g/dL RDW 16.6 H (11.5-15.5) % Plt Count 215 (150-450) k/uL MPV 8.4 Neutrophils % 80 % Lymphocytes % 13 % Monocytes % 4 % Eosinophils % 2 % Basophils % 0 % Neutrophils # 5.2 (1.3-7.7) k/uL Lymphocytes # 0.8 L (1.0-4.8) k/uL Monocytes # 0.3 (0-1.0) k/uL Eosinophils # 0.1 (0-0.7) k/uL Basophils # 0.0 (0-0.2) k/uL Hypochromasia Slight Anisocytosis Slight PT 10.4 (9.0-12.0) sec INR 1.0 (<1.2) APTT 31.0 H (22.0-30.0) sec Sample Site ABG pH (7.35-7.45) ABG pCO2 (35-45) mmHg ABG pO2 (83-108) mmHg ABG HCO3 (21-25) mmol/L ABG Total CO2 (19-24) mmol/L ABG O2 Saturation (94-97) % ABG Base Excess mmol/L Favio Test FiO2 % Sodium 133 L (137-145) mmol/L Potassium 4.2 (3.5-5.1) mmol/L Chloride 84 L (98-107) mmol/L Carbon Dioxide 43 H* (22-30) mmol/L Anion Gap 6 mmol/L BUN 11 (7-17) mg/dL Creatinine 0.80 (0.52-1.04) mg/dL Est GFR (CKD-EPI)AfAm 78 (>60 ml/min/1.73 sqM) Est GFR (CKD-EPI)NonAf 68 (>60 ml/min/1.73 sqM) Glucose 89 (74-99) mg/dL Plasma Lactic Acid Dandre (0.7-2.0) mmol/L Calcium 9.4 (8.4-10.2) mg/dL Total Bilirubin 0.3 (0.2-1.3) mg/dL AST 27 (14-36) U/L ALT 11 (4-34) U/L Alkaline Phosphatase 105 (38-126) U/L Troponin I (0.000-0.034) ng/mL NT-Pro-B Natriuret Pep pg/mL Total Protein 6.2 L (6.3-8.2) g/dL Albumin 3.5 (3.5-5.0) g/dL Urine Color Urine Appearance (Clear) Urine pH (5.0-8.0) Ur Specific [place] (1.001-1.035) Urine Protein (Negative) Urine Glucose (UA) (Negative) Urine Ketones (Negative) Urine Blood (Negative) Urine Nitrite (Negative) Urine Bilirubin (Negative) Urine Urobilinogen (<2.0) mg/dL Ur Leukocyte Esterase (Negative) 07/27/21 07/27/21 07/27/21 Range/Units 11:45 11:45 11:45 WBC (3.8-10.6) k/uL RBC (3.80-5.40) m/uL Hgb (11.4-16.0) gm/dL Hct (34.0-46.0) % MCV (80.0-100.0) fL MCH (25.0-35.0) pg MCHC (31.0-37.0) g/dL RDW (11.5-15.5) % Plt Count (150-450) k/uL MPV Neutrophils % % Lymphocytes % % Monocytes % % Eosinophils % % Basophils % % Neutrophils # (1.3-7.7) k/uL Lymphocytes # (1.0-4.8) k/uL Monocytes # (0-1.0) k/uL Eosinophils # (0-0.7) k/uL Basophils # (0-0.2) k/uL Hypochromasia Anisocytosis PT (9.0-12.0) sec INR (<1.2) APTT (22.0-30.0) sec Sample Site ABG pH (7.35-7.45) ABG pCO2 (35-45) mmHg ABG pO2 (83-108) mmHg ABG HCO3 (21-25) mmol/L ABG Total CO2 (19-24) mmol/L ABG O2 Saturation (94-97) % ABG Base Excess mmol/L Favio Test FiO2 % Sodium (137-145) mmol/L Potassium (3.5-5.1) mmol/L Chloride (98-107) mmol/L Carbon Dioxide (22-30) mmol/L Anion Gap mmol/L BUN (7-17) mg/dL Creatinine (0.52-1.04) mg/dL Est GFR (CKD-EPI)AfAm (>60 ml/min/1.73 sqM) Est GFR (CKD-EPI)NonAf (>60 ml/min/1.73 sqM) Glucose (74-99) mg/dL Plasma Lactic Acid Dandre 0.7 (0.7-2.0) mmol/L Calcium (8.4-10.2) mg/dL Total Bilirubin (0.2-1.3) mg/dL AST (14-36) U/L ALT (4-34) U/L Alkaline Phosphatase (38-126) U/L Troponin I <0.012 (0.000-0.034) ng/mL NT-Pro-B Natriuret Pep 1090 pg/mL Total Protein (6.3-8.2) g/dL Albumin (3.5-5.0) g/dL Urine Color Urine Appearance (Clear) Urine pH (5.0-8.0) Ur Specific [place] (1.001-1.035) Urine Protein (Negative) Urine Glucose (UA) (Negative) Urine Ketones (Negative) Urine Blood (Negative) Urine Nitrite (Negative) Urine Bilirubin (Negative) Urine Urobilinogen (<2.0) mg/dL Ur Leukocyte Esterase (Negative) 07/27/21 07/27/21 Range/Units 13:05 13:23 WBC (3.8-10.6) k/uL RBC (3.80-5.40) m/uL Hgb (11.4-16.0) gm/dL Hct (34.0-46.0) % MCV (80.0-100.0) fL MCH (25.0-35.0) pg MCHC (31.0-37.0) g/dL RDW (11.5-15.5) % Plt Count (150-450) k/uL MPV Neutrophils % % Lymphocytes % % Monocytes % % Eosinophils % % Basophils % % Neutrophils # (1.3-7.7) k/uL Lymphocytes # (1.0-4.8) k/uL Monocytes # (0-1.0) k/uL Eosinophils # (0-0.7) k/uL Basophils # (0-0.2) k/uL Hypochromasia Anisocytosis PT (9.0-12.0) sec INR (<1.2) APTT (22.0-30.0) sec Sample Site rbrac ABG pH 7.46 H (7.35-7.45) ABG pCO2 61 H (35-45) mmHg ABG pO2 62 L (83-108) mmHg ABG HCO3 43 H* (21-25) mmol/L ABG Total CO2 45 H (19-24) mmol/L ABG O2 Saturation 93.7 L (94-97) % ABG Base Excess 19.3 mmol/L Favio Test Yes FiO2 44 % Sodium (137-145) mmol/L Potassium (3.5-5.1) mmol/L Chloride (98-107) mmol/L Carbon Dioxide (22-30) mmol/L Anion Gap mmol/L BUN (7-17) mg/dL Creatinine (0.52-1.04) mg/dL Est GFR (CKD-EPI)AfAm (>60 ml/min/1.73 sqM) Est GFR (CKD-EPI)NonAf (>60 ml/min/1.73 sqM) Glucose (74-99) mg/dL Plasma Lactic Acid Dandre (0.7-2.0) mmol/L Calcium (8.4-10.2) mg/dL Total Bilirubin (0.2-1.3) mg/dL AST (14-36) U/L ALT (4-34) U/L Alkaline Phosphatase (38-126) U/L Troponin I (0.000-0.034) ng/mL NT-Pro-B Natriuret Pep pg/mL Total Protein (6.3-8.2) g/dL Albumin (3.5-5.0) g/dL Urine Color Yellow Urine Appearance Clear (Clear) Urine pH 6.5 (5.0-8.0) Ur Specific [place] 1.017 (1.001-1.035) Urine Protein Negative (Negative) Urine Glucose (UA) Negative (Negative) Urine Ketones Trace H (Negative) Urine Blood Negative (Negative) Urine Nitrite Negative (Negative) Urine Bilirubin Negative (Negative) Urine Urobilinogen 2.0 (<2.0) mg/dL Ur Leukocyte Esterase Negative (Negative) - Radiology Data Radiology results: image reviewed (Chest x-ray shows somewhat similar opacities to previous exam. Possibly some vascular congestion.) Disposition Clinical Impression: Weak, CO2 retention Disposition: ADMITTED IP TO THIS HOSP Is patient prescribed a controlled substance at d/c from ED?: No Referrals: Shira Ortega MD [Primary Care Provider] - 1-2 days Decision Time: 14:21
[2021-07-27 13:12] LABS: Appearance,Urine Clear (Clear); Bilirubin,Urine Negative (Negative); Blood,Urine Negative (Negative); Color,Urine Yellow; Glucose,Urine (UA) Negative (Negative); Ketones,Urine Trace (Negative); Leukocyte Esterase,Urine Negative (Negative); Nitrite,Urine Negative (Negative); PH, Urine 6.5 (5.0-8.0); Protein,Urine Negative (Negative); Specific Gravity,Urine 1.017 (1.001-1.035)
[2021-07-27 13:40] LABS: ABG Base Excess 19.3 mmol/L; ABG Oxygen Saturation 93.7 % (94-97); ABG PCO2 61 mmHg (35-45); ABG PH 7.46 (7.35-7.45); ABG PO2 62 mmHg (83-108); ABG TCO2 45 mmol/L (19-24); Allen Test Performed? Yes
[2021-07-27 13:44] LABS: ABG HCO3 43 mmol/L (21-25)
[2021-07-27] MEDS ORDERED: NALOXONE 0.4 MG/ML 1 ML VIAL IV PRN (14:22)
[2021-07-27] MEDS ORDERED: IPRATROPIUM-ALBUTEROL 3 ML NEB INHALATION PRN (14:24)
[2021-07-27] MEDS: HYDROcodone/APAP 7.5-325MG 1 EACH TAB PO PRN (15:20)
[2021-07-27] MEDS: SODIUM CHLORIDE 0.9% 1,000 ML IV SCH (15:24)
[2021-07-27] MEDS: methylPREDNISolone SOD SUCCI 125 MG/2 ML VIAL IV SCH ×3 (15:24→23:51)
[2021-07-27] MEDS ORDERED: ALBUTEROL NEBULIZED 2.5 MG/3 ML INHALATION PRN (17:25)
[2021-07-27] MEDS ORDERED: FLUTICASONE 50MCG/SPRAY NASAL 16GM EA NOSTRIL PRN (17:25)
[2021-07-27] MEDS ORDERED: ACETAMINOPHEN TAB 325 MG TAB PO PRN (17:25)
--- NOTE | 2021-07-27 18:37 | HP ---
HISTORY AND PHYSICAL DATE OF SERVICE: 07/27/2021. CHIEF COMPLAINT: Weakness. HISTORY OF PRESENT ILLNESS: This 86-year-old woman with a past medical history of multiple medical problems, including atrial fibrillation, CVA, TIA, hypertension, history of pneumonia, history of C difficile, being followed by Dr. Shira Ortega in the outpatient setting, was recently admitted with acute COVID-19 pneumonia. Patient was discharged. Patient is apparently taken care of by her 81-year-old . The patient was complaining of significant weakness; patient unable to get up and help with transfers. Her daughter was concerned, who lives in [place], and the patient was taken to [facility], admitted for further evaluation and treatment. Patient also has a history of hypoxia and CO2 retention. There is no history of any fever, rigors or chills. No history of headache, loss of consciousness, seizures. Chest x-ray showed bilateral interstitial shadows. ABG showed pH of 7.46 and PO2 of 62 and pCO2 of 61, indicating hypercarbic respiratory failure. The patient was admitted for further evaluation and treatment. Sodium was 133. Patient was saturating around 93% on 5 L. Repeat COVID-19 was negative. PAST MEDICAL HISTORY: History of recent COVID-19 and prolonged hospitalization, atrial fibrillation, history of CVA, TIA, hypertension, history of pneumonia, history of chronic back pain, C difficile colitis. HOME MEDICATIONS: Reviewed. They include Requip, zinc sulfate, triamcinolone ointment, Lyrica, Toprol, DuoNeb. Doses and other medications are reviewed. ALLERGIES: PENICILLIN. FAMILY HISTORY: History of myocardial infarction, Parkinson's. SOCIAL HISTORY: Previous history of smoking. No history of alcohol intake. REVIEW OF SYSTEMS: ENT: Diminished hearing. Diminished vision. CARDIOVASCULAR SYSTEM: As mentioned earlier. RESPIRATORY SYSTEM: As mentioned earlier. GI: As mentioned earlier. : No dysuria. NERVOUS SYSTEM: As mentioned earlier. ALLERGY/IMMUNOLOGY: No asthma or hay fever. MUSCULOSKELETAL: Negative. HEMATOLOGY/ONCOLOGY: No history of anemia. ENDOCRINE: No history of diabetes or hypothyroidism. CONSTITUTIONAL: As mentioned earlier. DERMATOLOGY: Negative. RHEUMATOLOGY: Negative. PSYCHIATRY: As mentioned earlier. PHYSICAL EXAMINATION: Patient alert and oriented x3. Pulse 72, blood pressure 120/72, respiration 18, temperature 98.8, pulse ox 94% on 5 L. HEENT: Conjunctivae normal. Oral mucosa moist. NECK: No jugular venous distention. No carotid bruit. No lymph node enlargement. CARDIOVASCULAR: S1, S2 muffled. RESPIRATION: Breath sounds diminished at the bases. A few scattered rhonchi and crackles. Expiratory wheezing also present. ABDOMEN: Soft, nontender. No mass palpable. LEGS: Bilateral leg edema. NERVOUS SYSTEM: Higher functions as mentioned earlier. Moves all 4 limbs. No focal motor or sensory deficit. LYMPHATICS: No lymph node palpable in neck, axillae or groin. SKIN: Stage II decubitus pressure ulcer on the back, sacral area. JOINTS: No active deforming arthropathy. LABS: WBC 6.5, hemoglobin 13.2, and ABGs noted. Sodium 133, potassium 4.2. ASSESSMENT: 1. Diffuse generalized weakness with generalized deconditioning. 2. Acute hypoxic hypercarbic respiratory failure, possibly secondary to obesity hypoventilation syndrome. 3. Bilateral lung lesions, possible pulmonary fibrosis secondary to COVID-19 pneumonia. Rule out active superinfected pneumonia or acute COVID-19. 4. Hyponatremia. 5. Gait dysfunction. 6. History of atrial fibrillation. 7. History of recent prolonged COVID-19 infection. 8. History of cerebrovascular accident, transient ischemic attack. 9. Hypertension. 10.History of pneumonia. 11.History of chronic back pain. 12.History of ovarian cancer. 13.History of Clostridium difficile. 14.History of degenerative joint disease, back pain. 15.History of depression. 16.History of nicotine dependence. 17.Super morbid obesity with body mass index of 48.5. 18.FULL CODE. RECOMMENDATIONS AND DISCUSSION: In this 86-year-old woman who presented with multiple complex medical issues, we will monitor the patient closely, continue the current medications, continue symptomatic treatment. Otherwise I would recommend intensive bronchodilator treatment as well as empiric steroids. We will consult Pulmonary and Infectious Disease and PT/OT evaluation. The patient appears to have significant deconditioning and multiple complex medical issues, very poor social support. The patient has a high fall risk. Patient will require PT/OT evaluation and incentive spirometry and possible ECF rehab. Resume the home medications, which were reconciled. See orders for further details. I would also recommend serum procalcitonin and D-dimer. If D-dimer is high, I would also recommend a CT angio of the chest to rule out the possibility of pulmonary embolism. Otherwise, overall prognosis is extremely guarded. Discussed with the daughter at the bedside, who understands and agrees. Further recommendations to follow. A copy of this dictation is being forwarded to Dr. Ortega, who is the primary physician. TAMIA / STEVAN: [id number] / MTDD
[2021-07-27] MEDS: PREGABALIN 75 MG CAP PO SCH (20:30)
[2021-07-27] MEDS: FUROSEMIDE 10 MG/ML 4 ML VIAL IV SCH (20:30)
[2021-07-27] MEDS: APIXABAN 5 MG TAB PO SCH (21:41)
[2021-07-27] MEDS: IPRATROPIUM-ALBUTEROL 3 ML NEB INHALATION SCH (21:57)
[2021-07-28] MEDS: HYDROcodone/APAP 7.5-325MG 1 EACH TAB PO PRN ×2 (03:11→12:03)
[2021-07-28] MEDS: methylPREDNISolone SOD SUCCI 125 MG/2 ML VIAL IV SCH ×3 (05:46→17:15)
[2021-07-28] MEDS: FUROSEMIDE 10 MG/ML 4 ML VIAL IV SCH ×2 (05:48→17:15)
[2021-07-28] MEDS: IPRATROPIUM-ALBUTEROL 3 ML NEB INHALATION SCH ×4 (08:46→20:59)
[2021-07-28] MEDS: DULoxetine HCL 20 MG CAPSULE.DR PO SCH (09:05)
[2021-07-28] MEDS: CHOLECALCIFEROL 25 MCG (1000 IU) TABLET PO SCH (09:05)
[2021-07-28] MEDS: PREGABALIN 75 MG CAP PO SCH ×3 (09:05→21:37)
[2021-07-28] MEDS: ATORVASTATIN 40 MG TAB PO SCH (09:05)
[2021-07-28] MEDS: APIXABAN 5 MG TAB PO SCH ×2 (09:05→21:37)
[2021-07-28] MEDS: ZINC SULFATE 220 MG CAP PO SCH (09:05)
[2021-07-28] MEDS: ASCORBIC ACID 500 MG TAB PO SCH (09:05)
[2021-07-28] MEDS: METOPROLOL SUCCINATE (ER) 25 MG TAB.ER.24H PO SCH (09:56)
--- NOTE | 2021-07-28 11:40 | P.CONS ---
History of Present Illness - Reason for Consult Consult date: 07/27/21 weakness and stasis ulcer Requesting physician: Anibal Ferrari - Chief Complaint weakness and painful sore to the back x few days - History of Present Illness History of present illness : Patient is 86-year-old female with recent admission to the hospital for COVID-19 infection for the patient did receive remdesivir and the patient was discharged on 06/24/2021 patient also have a another visit to the ER on 07/17/2021 and noticed to have some CO2 retention she was advised to use her CPAP as needed diagnosed with a UTI placed on antibiotics and subsequent discharge home the patient now brought back to the hospital this afternoon for evaluation neurolyse weakness in this patient symptom has been getting worse for the past day or 2 patient unable to get up and help with the transfer no focal weakness patient denies having any chest pain no shortness of breath did have minimal cough not back up any sputum no nausea no vomiting no abdominal pain no diarrhea did have some swelling to the leg and minimal erythema to the right lower extremity however the patient having symptom as for his pain is constant to the right leg patient also have a painful sore to the sacral area currently going on for the last few days patient describes the pain to be sharp 2-3 out of 10 and no radiation with the symptom the patient was evaluated by the ER physician on arrival to the ER patient did have a chest x- ray scattered airspace opacity significant change from the prior mild pulmonary vascular congestion correlate for congestive heart failure patient was afebrile did have a mild hypoxemia requiring supplemental oxygen patient did have a normal white count with lymphopenia D-dimer is normal kidney function is normal liver enzymes are normal sanchez PCR was nondetected urine is negative infectious was consulted with concern for stasis ulcer and weakness Review of system: CONSTITUTIONAL: Positive for weakness denies fever. EYES: No complaint. ENT: No complaint. RESPIRATORY: As per history of present illness. CARDIOVASCULAR: No complaint. GENITOURINARY: No complaint. GASTROINTESTINAL: No complaint. MUSCULOSKELETAL: No complaint. INTEGUMENTARY: As per history of present illness. PSYCHOLOGIC: No complaint. ENDOCRINE: No complaint. NEUROLOGIC: No complaint. Past medical history : Reviewed, documented below Past surgical history : Reviewed, documented below Social history: Reviewed, documented below Medications: Reviewed, as documented below EXAMINATION: Vital sigans= Reviewed and documented below GENERAL DESCRIPTION: Elderly female lying in bed, no distress. No tachypnea or accessory muscle of respiration use. HEENT: Shows Pallor , no scleral icterus. Oral mucous membrane is dry. NECK: Trachea central, no thyromegaly. LUNGS: Unlabored breathing. Decrease intensity of breath sounds. No wheeze or crackle. HEART: S1, S2, regular rate and rhythm. ABDOMEN: Soft, no tenderness , guarding or rigidity EXTREMITIES: Bilateral lower extremity swelling with minimal erythema to the right leg however not warm to touch. SKIN: No rash, no masses palpable. Patient did have a stage II sacral pressure ulcer with evidence of any cellulitis NEUROLOGICAL: The patient is awake, alert, oriented x3, mood and affect normal. LABS AND RADIOLOGY: Reviewed results see below Assessment : 1-patient presented to hospital with weakness which could be multifactorial in this patient with possible CHF/fluid overload clinically not behaving as pneumonia in this patient with no fever or elevated white count and the patient has recently recovered from COVID-19 about a month ago 2-bilateral lower extremity swelling with some stasis dermatitis of the right leg clinically not behaving as cellulitis 3-stage II sacral pressure ulcer with no cellulitis Plan: 1-skin barrier cream to the sacral area and frequent change of the position 2-no need for systemic antibiotic therapy 3-we will benefit from cardiac evaluation and gentle diuresis We will follow on clinical condition and cultures to further adjust medication if needed Thank you for this consultation we will follow the patient along with you Past Medical History Past Medical History: Atrial Fibrillation, Cancer, CVA/TIA, Hypertension, Pneumonia Additional Past Medical History / Comment(s): chronic back pain, ovarian cancer History of Any Multi-Drug Resistant Organisms: C-DIFF Year Discovered:: stool MDRO Source:: 1998 Past Surgical History: Back Surgery, Hernia Repair, Hysterectomy Additional Past Surgical History / Comment(s): jero knee,brain tumor removed, exp lap Past Anesthesia/Blood Transfusion Reactions: No Reported Reaction Smoking Status: Former smoker - Past Family History Father Family Medical History: Myocardial Infarction ([place]) Mother Additional Family Medical History / Comment(s): parkinson's Sister(s) Family Medical History: Cancer Medications and Allergies Home Medications Medication Instructions Recorded Confirmed Type Atorvastatin [Lipitor] 40 mg PO DAILY 08/17/17 07/27/21 History DULoxetine HCL [Cymbalta] 20 mg PO DAILY 10/16/17 07/27/21 History HYDROcodone/APAP 7.5-325MG [[place] 1 tab PO BID PRN 03/15/18 07/27/21 History 7.5-325] Ipratropium-Albuterol Nebulize 3 ml INHALATION RT-BID PRN 03/15/18 07/27/21 History [Duoneb 0.5 mg-3 mg/3 ml Soln] Triamterene-Hctz 37.5-25Mg 1 cap PO DAILY 03/15/18 07/27/21 History [Dyazide 37.5-25 Capsule] Apixaban [Eliquis] 5 mg PO BID 12/12/19 07/27/21 History Fluticasone Nasal [place] [Flonase 1 spray EA NOSTRIL DAILY PRN 12/12/19 07/27/21 History Nasal [place]] Metoprolol Succinate [Toprol XL] 25 mg PO DAILY 12/12/19 07/27/21 History Clindamycin Phosp 1% Lotion 1 applic TOPICAL DAILY 06/15/21 07/27/21 History Clobetasol 0.05% Solution 1 applic TOPICAL DAILY 06/15/21 07/27/21 History Furosemide [Lasix] 20 mg PO DAILY 06/15/21 07/27/21 History Ibuprofen [Motrin] 600 mg PO Q12H PRN 06/15/21 07/27/21 History Triamcinolone 0.1% Ointment 1 applic TOPICAL DAILY 06/15/21 07/27/21 History [Kenalog 0.1% Ointment] rOPINIRole HCL [Requip] 3 mg PO BID 06/15/21 07/27/21 History Acetaminophen Tab [Tylenol] 650 mg PO Q6HR PRN tab 06/24/21 07/27/21 Rx Ascorbic Acid [Vitamin C] 500 mg PO DAILY 30 Days #30 tab 06/24/21 07/27/21 Rx Cholecalciferol [Vitamin D3 (25 25 mcg PO DAILY 30 Days #30 tablet 06/24/21 07/27/21 Rx Mcg = 1000 Iu)] Zinc Sulfate [Orazinc] 220 mg PO DAILY 30 Days #30 cap 06/24/21 07/27/21 Rx Albuterol Inhaler [Ventolin Hfa 2 puff INHALATION RT-QID PRN 07/17/21 07/27/21 History Inhaler] Cephalexin [Keflex] 500 mg PO Q12HR #20 cap 07/17/21 07/27/21 Rx Pregabalin [Lyrica] 150 mg PO TID 07/17/21 07/27/21 History Allergies Allergy/AdvReac Type Severity Reaction Status Date / Time Penicillins Allergy Swelling/it Verified 07/27/21 13:29 lolis Physical Exam Vitals: Vital Signs Temp Pulse Pulse Resp BP BP BP 07/27/21 20:30 98.4 F 78 20 147/82 07/27/21 17:14 98.1 F 69 128/73 07/27/21 15:57 98.8 F 72 18 120/72 07/27/21 14:22 70 18 117/72 07/27/21 11:03 98.4 F 61 18 113/75 Pulse Ox 07/27/21 20:30 89 L 07/27/21 17:14 92 L 07/27/21 15:57 94 L 07/27/21 14:22 94 L 07/27/21 11:03 93 L Intake and Output 07/27/21 07/27/21 07/27/21 06:59 14:59 22:59 Intake Total 300 Balance 300 Intake: Oral 300 Other: # Voids 2 Weight 120.202 kg 120.202 kg Results CBC & Chem 7: 07/27/21 11:45 07/27/21 11:45 Labs: Abnormal Lab Results - Last 24 Hours (Table) 07/27/21 07/27/21 07/27/21 Range/Units 11:45 11:45 11:45 MCHC 30.8 L (31.0-37.0) g/dL RDW 16.6 H (11.5-15.5) % Lymphocytes # 0.8 L (1.0-4.8) k/uL APTT 31.0 H (22.0-30.0) sec ABG pH (7.35-7.45) ABG pCO2 (35-45) mmHg ABG pO2 (83-108) mmHg ABG HCO3 (21-25) mmol/L ABG Total CO2 (19-24) mmol/L ABG O2 Saturation (94-97) % Sodium 133 L (137-145) mmol/L Chloride 84 L (98-107) mmol/L Carbon Dioxide 43 H* (22-30) mmol/L Total Protein 6.2 L (6.3-8.2) g/dL Urine Ketones (Negative) 07/27/21 07/27/21 Range/Units 13:05 13:23 MCHC (31.0-37.0) g/dL RDW (11.5-15.5) % Lymphocytes # (1.0-4.8) k/uL APTT (22.0-30.0) sec ABG pH 7.46 H (7.35-7.45) ABG pCO2 61 H (35-45) mmHg ABG pO2 62 L (83-108) mmHg ABG HCO3 43 H* (21-25) mmol/L ABG Total CO2 45 H (19-24) mmol/L ABG O2 Saturation 93.7 L (94-97) % Sodium (137-145) mmol/L Chloride (98-107) mmol/L Carbon Dioxide (22-30) mmol/L Total Protein (6.3-8.2) g/dL Urine Ketones Trace H (Negative)
[2021-07-28] MEDS: CLINDAMYCIN PHOSP 1% TOPICAL SCH (13:48)
--- NOTE | 2021-07-28 18:20 | PN ---
PROGRESS NOTE DATE OF SERVICE: 07/28/2021 This 86-year-old woman with recent Covid infection also had bilateral interstitial infiltrate. The patient also complained of severe weakness also. The super infection was suspected. Cultures are negative. Procalcitonin is only 0.07. The patient is on IV steroids. CHF is also suspected. PAST MEDICAL HISTORY: History reviewed. REVIEW OF SYSTEMS: Cardiovascular system: No angina. Respiratory: As mentioned earlier. GI: No nausea. : No dysuria. Nervous system: No numbness or weakness. Allergy/immunology: No asthma or hayfever. Musculoskeletal as mentioned earlier. Hematology/Oncology: As mentioned earlier. CURRENT MEDICATIONS: Reviewed and include: Tylenol, Trion, Ventolin, DuoNeb, Eliquis, vitamin C, Lipitor, doses reviewed. PHYSICAL EXAMINATION: Alert and oriented times three. Pulse 70. Blood pressure 130/60, respiration 17, temperature 97.2, pulse ox 90 percent on 2 L. HEENT: Conjunctivae normal. Neck: No JVD. Cardiovascular: S1, S2 muffled. Respirations: A few scattered rhonchi. Abdomen: Soft. Nervous system: No focal deficits. Legs: Minimal edema. LABS: ABGs noted. Otherwise sodium 132, potassium 4.2. The chest x-ray was reviewed. D- dimer was noted. BNP is only 1090. ASSESSMENT: 1. Diffuse generalized weakness and generalized deconditioning. 2. Acute hypoxic hypercarbic respiratory failure possibly secondary to obesity hypoventilation syndrome. 3. Bilateral lung lesions, possible pulmonary fibrosis, acute COVID-19 pneumonia, rule out active pneumonia or congestive heart failure or acute Covid 19. 4. Hyponatremia. 5. Gait dysfunction. 6. History of atrial fibrillation. 7. History of recent prolonged Covid 19 infection. 8. History of cerebrovascular accident, transient ischemic attack. 9. Hypertension. 10.History of pneumonia. 11.History of chronic back pain. 12.History of ovarian cancer. 13.History of C difficile colitis. 14.History of degenerative joint disease/ back pain. 15.History of depression. 16.Remote history of nicotine dependence. 17.Super morbid obesity with body mass index 48.5. 18.FULL CODE. RECOMMENDATIONS AND DISCUSSION: I recommend to continue current medications, management and symptomatic treatment. Otherwise, I would recommend a CT angio to rule out the possible pulmonary embolism. A 2D echo with Doppler. I would also recommend pulmonary and cardiology evaluations to rule out possible CHF. Guarded prognosis because of multiple complex medical issues. Continue PT/OT evaluation. Possible social work consultation. Further recommendations to follow. MMODL / IJN: [id number] / MTDD
[2021-07-28] MEDS: SODIUM CHLORIDE 0.9% 1,000 ML IV SCH (18:26)
[2021-07-28] MEDS: CLOBETASOL PROP 0.05% OINT 15GM TOPICAL SCH (18:26)
--- NOTE | 2021-07-28 18:44 | CT ---
EXAMINATION TYPE: CT angio chest DATE OF EXAM: 07/28/2021 COMPARISON: None HISTORY: Shortness of breath. PE vs pulmonary fibrosis. CT DLP: 427.4 mGycm Automated exposure control for dose reduction was used. CONTRAST: Performed with IV Contrast, patient injected with 100 mL of Isovue 370. There are Three-D postprocessed images. There is patchy bilateral pulmonary infiltrates and atelectasis. There is poor inspiration. There is elevation of the diaphragms. Heart is enlarged. There is no pericardial effusion. There is no signifi cant pleural fluid. Upper abdominal soft tissues are intact. Thoracic aorta is atheromatous. There is no dissection. Ascending aorta measures up to 4 cm. There is normal contrast opacification of the pulmonary arteries. There are no filling defects. Thora cic spine shows some degenerative spur formation. There is T12 anterior wedging 25% there is probably old. IMPRESSION: No evidence of pulmonary embolism. Bilateral pulmonary patchy infiltrates and atelectasis. 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
--- NOTE | 2021-07-28 23:05 | PN ---
PROGRESS NOTE DATE OF SERVICE: 07/28/2021 REASON FOR FOLLOWUP: 1. Right lower extremity cellulitis. 2. Stage II sacral pressure ulcer. INTERVAL HISTORY: The patient is afebrile. The patient is breathing comfortably. Denies having any chest pain. No worsening shortness of breath, cough, abdominal pain and no diarrhea. PHYSICAL EXAMINATION: Blood pressure 135/78 with a pulse of 77, temperature 98.4. She is 91% on 3 L nasal cannula. General description is an elderly female lying in bed in no distress. Respiratory system: Unlabored breathing, decreased breath sounds in the bases. No wheeze. Heart S1, S2. Regular rate and rhythm. Abdomen: Soft, no tenderness. Right lower extremity swelling and redness has slightly increased. It is mostly warm to touch. DIAGNOSTIC IMPRESSION AND PLAN: 1. Patient with right lower extremity cellulitis with diffuse swelling and redness, slightly worsening compared to yesterday. We will add cefazolin. Hipolito the area of the redness and Don wrap to keep the swelling down. 2. Patient with pressure ulcers on the sacral area. No cellulitis. Local care with skin barrier cream and keep the area off pressure. MMODL / IJN: [id number] /
[2021-07-29] MEDS: methylPREDNISolone SOD SUCCI 125 MG/2 ML VIAL IV SCH ×4 (06:06→17:10)
[2021-07-29] MEDS: FUROSEMIDE 10 MG/ML 4 ML VIAL IV SCH ×2 (06:07→17:09)
[2021-07-29] MEDS: ZINC SULFATE 220 MG CAP PO SCH (08:38)
[2021-07-29] MEDS: PREGABALIN 75 MG CAP PO SCH ×3 (08:38→21:06)
[2021-07-29] MEDS: CHOLECALCIFEROL 25 MCG (1000 IU) TABLET PO SCH (08:38)
[2021-07-29] MEDS: APIXABAN 5 MG TAB PO SCH ×2 (08:38→21:02)
[2021-07-29] MEDS: ATORVASTATIN 40 MG TAB PO SCH (08:38)
[2021-07-29] MEDS: METOPROLOL SUCCINATE (ER) 25 MG TAB.ER.24H PO SCH (08:38)
[2021-07-29] MEDS: ASCORBIC ACID 500 MG TAB PO SCH (08:38)
[2021-07-29] MEDS: IPRATROPIUM-ALBUTEROL 3 ML NEB INHALATION SCH ×4 (08:39→20:19)
[2021-07-29] MEDS: CLOBETASOL PROP 0.05% OINT 15GM TOPICAL SCH (08:39)
[2021-07-29] MEDS: DULoxetine HCL 20 MG CAPSULE.DR PO SCH (08:39)
[2021-07-29] MEDS: CLINDAMYCIN PHOSP 1% TOPICAL SCH (08:52)
--- NOTE | 2021-07-29 11:31 | ECHOF ---
Referral Reason:chf MEASUREMENTS -------- HEIGHT: 157.5 cm WEIGHT: 120.2 kg BP: 111/67 IVSd: 2.3 cm (0.6 - 1.1) LVIDd: 2.7 cm (3.9 - 5.3) LVPWd: 2.3 cm (0.6 - 1.1) IVSs: 2.9 cm LVIDs: 1.8 cm LVPWs: 2.6 cm AV maxP.96 mmHg AV meanP.48 mmHg FINDINGS -------- Sinus rhythm. This was a technically difficult study with suboptimal apical views. The left ventricular size is normal. There is severe concentric left ventricular hypertrophy. Ove rall left ventricular systolic function is normal with, an EF between 60 - 65 %. There is moderate aortic stenosis present. The maximum velocity across the aortic valve is 2.86m/s. Peak/mean gradient across the Aortic Valve is 32.96mmHg / 18.48mmHg. Moderate mitral annular calcification present. Mild mitral stenosis , with a MVA of 2.8cm (by PHT) There is no pericardial effusion. CONCLUSIONS -------- 1. The left ventricular size is normal. 2. There is severe concentric left ventricular hypertrophy. 3. Overall left ventricular systolic function is normal with, an EF between 60 - 65 %. 4. There is moderate aortic stenosis present. 5. The maximum velocity across the aortic valve is 2.86m/s. 6. Peak/mean gradient across the Aortic Valve is 32.96mmHg / 18.48mmHg. 7. Mild mitral stenosis. PRODUCTION EDITOR: Zulay Raygoza RDCS
[2021-07-29 11:43] LABS: Anisocytosis Slight; Basophils % (A) 0 %; Eosinophils % (A) 0 %; HCT 43.9 % (34.0-46.0); HGB 13.6 gm/dL (11.4-16.0); Hypochromasia Slight; Lymphocytes # (A) 0.5 k/uL (1.0-4.8); Lymphocytes % (A) 4 %; MCV 93.8 fL (80.0-100.0); Mean Platelet Volume 9.1; Monocytes # (A) 0.3 k/uL (0-1.0); Monocytes % (A) 2 %; Neutrophils % (A) 94 %; Platelet Count 230 k/uL (150-450); RBC 4.69 m/uL (3.80-5.40); RDW 16.6 % (11.5-15.5); WBC 13.9 k/uL (3.8-10.6)
[2021-07-29 11:46] LABS: African American GFR (CKD) 60 (>60 ml/min/1.73 sqM); Blood Urea Nitrogen 17 mg/dL (7-17); Calcium 9.2 mg/dL (8.4-10.2); Chloride 86 mmol/L (98-107); Glucose 157 mg/dL (74-99); Non-African American GFR(CKD) 52 (>60 ml/min/1.73 sqM); Potassium 3.2 mmol/L (3.5-5.1); Sodium 139 mmol/L (137-145)
[2021-07-29 11:54] LABS: Anion Gap 9 mmol/L
[2021-07-29 12:00] LABS: Carbon Dioxide 44 mmol/L (22-30)
[2021-07-29] MEDS: acetaZOLAMIDE 250 MG TAB PO SCH ×2 (13:11→21:02)
[2021-07-29 14:03] VITALS: BMI 48.4
--- NOTE | 2021-07-29 14:54 | P.CRDCN ---
History of Present Illness History of present illness: HISTORY OF PRESENTING ILLNESS This is a pleasant 86-year-old female past medical history significant for paroxysmal atrial fibrillation, aortic stenosis, typical atrial flutter, recent admission for covid 19 infection. She follows in the office with Dr. Watts. We have been asked to see in consultation for congestive heart failure. Patient presents to the emergency department with shortness of breath, lower extremity edema and generalized weakness. Per family patient has had generalized weakness for one year. Family also endorses some alerted mental status but this has improved since last admission in May 2021. She denies any chest pain, palpitations, lightheadedness, dizziness. She states her breathing has somewhat improved. On admission, abg revealed pH 7.46, pCO2 61, bicarb 43 DIAGNOSTICS EKG reveals sinus rhythm, heart rate 65, first degree AV block, right bundle b ranch block Chest CT revealed bilateral pulmonary patchy infiltrates, no evidence of pulmonary embolism. Laboratory reviewed, WBC 13.9, hemoglobin 13.6, platelets 260, sodium 139, potassium 3.2, P1 17, serum creatinine 0.9, chloride 86, Co2 44 Limited echo revealed EF 6065 percent, aortic stenosis with a peak/mean gradient of 32 mmHg/18 mmHg Current home medications include Eliquis 5 mg twice a day, atorvastatin 40 mg daily, Lasix 20 mg daily, metoprolol succinate 25 mg daily, Dyazide 30 7. 525 milligrams daily REVIEW OF SYSTEMS At the time of my exam: CONSTITUTIONAL: Denies fever or chills. CARDIOVASCULAR: Denies chest pain, shortness of breath, orthopnea, PND or palpitations. RESPIRATORY: Denies cough. GASTROINTESTINAL: Denies abdominal pain, diarrhea, constipation, nausea or vomiting. MUSCULOSKELETAL: Denies myalgias. NEUROLOGIC: Denies numbness, tingling, headacbe or weakness. ENDOCRINE: Denies fatigue, weight change, polydipsia or polyurina. GENITOURINARY: Denies burning, hematuria or urgency with micturation. HEMATOLOGIC: Denies history of anemia or bleeding. PHYSICAL EXAMINATION Vitals reviewed CONSTITUTIONAL: No apparent distress. HEENT: Head is normocephalic. Pupils are equal, round. Sclerae anicteric. Mucous membranes of the mouth are moist. CHEST EXAMINATION: Lungs are diminished to auscultation. No chest wall tenderness is noted on palpation or with deep breathing. HEART EXAMINATION: Regular rate and rhythm. S1, S2 heard. No murmurs, gallops or rub. ABDOMEN: Soft, nontender. Positive bowel sounds. EXTREMITIES: 2+ peripheral pulses, no lower extremity edema and no calf tenderness. NEUROLOGIC EXAMINATION: Patient is awake, alert and oriented x3. ASSESSMENT Shortness of breath Generalized weakness Acute on chronic diastolic heart failure Paroxysmal atrial fibrillation on eliquis Typical atrial flutter PLAN Start Diamox Continue IV Lasix 40 mg twice a day Monitor I/Os, daily weights, renal function and electrolytes Continue Eliquis, statin, metoprolol succinate Further recommendations based on clinical course Nurse Practitioner note has been reviewed, I agree with a documented findings and plan of care. Patient was seen and examined. Past Medical History Past Medical History: Atrial Fibrillation, Cancer, CVA/TIA, Hypertension, Pneumonia Additional Past Medical History / Comment(s): chronic back pain, ovarian cancer History of Any Multi-Drug Resistant Organisms: C-DIFF Date of last positivie culture/infection: stool MDRO Source:: 1998 Past Surgical History: Back Surgery, Hernia Repair, Hysterectomy Additional Past Surgical History / Comment(s): jero knee,brain tumor removed, exp lap Past Anesthesia/Blood Transfusion Reactions: No Reported Reaction Smoking Status: Former smoker - Past Family History Father Family Medical History: Myocardial Infarction ([place]) Mother Additional Family Medical History / Comment(s): parkinson's Sister(s) Family Medical History: Cancer Medications and Allergies Home Medications Medication Instructions Recorded Confirmed Type Atorvastatin [Lipitor] 40 mg PO DAILY 08/17/17 07/27/21 History DULoxetine HCL [Cymbalta] 20 mg PO DAILY 10/16/17 07/27/21 History HYDROcodone/APAP 7.5-325MG [[place] 1 tab PO BID PRN 03/15/18 07/27/21 History 7.5-325] Ipratropium-Albuterol Nebulize 3 ml INHALATION RT-BID PRN 03/15/18 07/27/21 History [Duoneb 0.5 mg-3 mg/3 ml Soln] Triamterene-Hctz 37.5-25Mg 1 cap PO DAILY 03/15/18 07/27/21 History [Dyazide 37.5-25 Capsule] Apixaban [Eliquis] 5 mg PO BID 12/12/19 07/27/21 History Fluticasone Nasal [place] [Flonase 1 spray EA NOSTRIL DAILY PRN 12/12/19 07/27/21 History Nasal [place]] Metoprolol Succinate [Toprol XL] 25 mg PO DAILY 12/12/19 07/27/21 History Clindamycin Phosp 1% Lotion 1 applic TOPICAL DAILY 06/15/21 07/27/21 History Clobetasol 0.05% Solution 1 applic TOPICAL DAILY 06/15/21 07/27/21 History Furosemide [Lasix] 20 mg PO DAILY 06/15/21 07/27/21 History Ibuprofen [Motrin] 600 mg PO Q12H PRN 06/15/21 07/27/21 History Triamcinolone 0.1% Ointment 1 applic TOPICAL DAILY 06/15/21 07/27/21 History [Kenalog 0.1% Ointment] rOPINIRole HCL [Requip] 3 mg PO BID 06/15/21 07/27/21 History Acetaminophen Tab [Tylenol] 650 mg PO Q6HR PRN tab 06/24/21 07/27/21 Rx Ascorbic Acid [Vitamin C] 500 mg PO DAILY 30 Days #30 tab 06/24/21 07/27/21 Rx Cholecalciferol [Vitamin D3 (25 25 mcg PO DAILY 30 Days #30 tablet 06/24/21 07/27/21 Rx Mcg = 1000 Iu)] Zinc Sulfate [Orazinc] 220 mg PO DAILY 30 Days #30 cap 06/24/21 07/27/21 Rx Albuterol Inhaler [Ventolin Hfa 2 puff INHALATION RT-QID PRN 07/17/21 07/27/21 History Inhaler] Cephalexin [Keflex] 500 mg PO Q12HR #20 cap 07/17/21 07/27/21 Rx Pregabalin [Lyrica] 150 mg PO TID 07/17/21 07/27/21 History Allergies Allergy/AdvReac Type Severity Reaction Status Date / Time Penicillins Allergy Swelling/it Verified 07/27/21 13:29 lolis Physical Exam Vitals: Vital Signs Temp Pulse Pulse Resp BP BP Pulse Ox 07/29/21 12:00 97.9 F 66 16 97/51 91 L 07/29/21 04:25 97.8 F 58 L 16 111/67 91 L 07/28/21 21:09 74 07/28/21 21:01 70 07/28/21 19:20 98.4 F 77 18 135/78 91 L 07/28/21 17:26 73 127/72 91 L 07/28/21 16:53 73 07/28/21 16:46 90 L 07/28/21 16:44 74 Intake and Output 07/28/21 07/29/21 07/29/21 22:59 06:59 14:59 Intake Total 170 Output Total 282 333 7789 Balance -500 -230 -1800 Intake: Intake, IV Titration 50 Amount ceFAZolin 2 gm In Sodium 50 Chloride 0.9% 50 ml @ 100 mls/hr IVPB Q8H [facility] Rx#: [id number] Oral 120 Output: Urine [id number] [id number] Other: Voiding Method Bedpan Bedpan Diaper Diaper External Catheter External Catheter # Voids 1 Weight 120.202 kg Results 07/29/21 10:33 07/29/21 10:33 CBC 07/29/21 Range/Units 10:33 WBC 13.9 H (3.8-10.6) k/uL RBC 4.69 (3.80-5.40) m/uL Hgb 13.6 (11.4-16.0) gm/dL Hct 43.9 (34.0-46.0) % Plt Count 230 (150-450) k/uL Comprehensive Metabolic Panel 07/29/21 Range/Units 10:33 Sodium 139 (137-145) mmol/L Potassium 3.2 L (3.5-5.1) mmol/L Chloride 86 L (98-107) mmol/L Carbon Dioxide 44 H* (22-30) mmol/L BUN 17 (7-17) mg/dL Creatinine 0.99 (0.52-1.04) mg/dL Glucose 157 H (74-99) mg/dL Calcium 9.2 (8.4-10.2) mg/dL Current Medications Generic Name Dose Route Start Last Admin Trade Name Freq PRN Reason Stop Dose Admin Acetaminophen 650 mg 07/27/21 17:25 Acetaminophen Tab 325 Mg Tab PO Q6HR PRN Fever and/ or MILD Pain Hydrocodone Bitart/Acetaminophen 1 each 07/27/21 14:24 07/28/21 12:03 Hydrocodone/Apap 7.5-325mg 1 Each Tab PO 1 each BID PRN Administration Pain Acetazolamide 250 mg 07/29/21 12:45 07/29/21 13:11 Acetazolamide 250 Mg Tab PO 250 mg BID RONY Administration Albuterol Sulfate 2.5 mg 07/27/21 17:25 Albuterol Nebulized 2.5 Mg/3 Ml INHALATION RT-QID PRN Shortness Of Breath Albuterol/Ipratropium 3 ml 07/27/21 14:24 Ipratropium-Albuterol 3 Ml Neb INHALATION RT-BID PRN Shortness Of Breath Albuterol/Ipratropium 3 ml 07/27/21 20:00 07/29/21 12:12 Ipratropium-Albuterol 3 Ml Neb INHALATION Not Given RT-QID RONY Apixaban 5 mg 07/27/21 21:00 07/29/21 08:38 Apixaban 5 Mg Tab PO 5 mg BID RONY Administration Protocol Ascorbic Acid 500 mg 07/28/21 09:00 07/29/21 08:38 Ascorbic Acid 500 Mg Tab PO 500 mg DAILY RONY Administration Atorvastatin Calcium 40 mg 07/28/21 09:00 07/29/21 08:38 Atorvastatin 40 Mg Tab PO 40 mg DAILY RONY Administration Cholecalciferol 25 mcg 07/28/21 09:00 07/29/21 08:38 Cholecalciferol 25 Mcg (1000 Iu) Tablet PO 25 mcg DAILY RONY Administration Clobetasol Propionate 1 applic 07/28/21 09:00 07/29/21 08:39 Clobetasol Prop 0.05% Oint 15gm TOPICAL 1 applic DAILY RONY Administration Duloxetine HCl 20 mg 07/28/21 09:00 07/29/21 08:39 Duloxetine Hcl 20 Mg Capsule.Dr PO 20 mg DAILY RONY Administration Fluticasone Propionate 1 spray 07/27/21 17:25 Fluticasone 50mcg/[place] Nasal 16gm EA NOSTRIL DAILY PRN Allergy Symptoms Furosemide 40 mg 07/27/21 18:00 07/29/21 06:07 Furosemide 10 Mg/Ml 4 Ml Vial IV 40 mg Q12H RONY Administration Sodium Chloride 1,000 mls @ 20 mls/hr 07/27/21 14:30 07/28/21 18:26 Saline 0.9% IV Not Given .Q24H RONY Cefazolin Sodium 2 gm/ Sodium 50 mls @ 100 mls/hr 07/29/21 00:00 07/29/21 08:39 Chloride IVPB 100 mls/hr Q8H RONY Administration Methylprednisolone Sodium Succinate 60 mg 07/27/21 14:30 07/29/21 13:11 Methylprednisolone Sod Succi 125 Mg/2 Ml Vial IV 60 mg Q6HR RONY Administration Metoprolol Succinate 25 mg 07/28/21 09:00 07/29/21 08:38 Metoprolol Succinate (Er) 25 Mg Tab.Er.24h PO 25 mg DAILY RONY Administration Naloxone HCl 0.2 mg 07/27/21 14:22 Naloxone 0.4 Mg/Ml 1 Ml Vial IV Q2M PRN Opioid Reversal Non-Formulary Medication 1 applic 07/28/21 09:00 07/29/21 08:52 Clindamycin Phosp 1% Lotion TOPICAL Not Given DAILY RONY Pregabalin 150 mg 07/27/21 22:00 07/29/21 08:38 Pregabalin 75 Mg Cap PO 150 mg TID RONY Administration Ropinirole HCl 3 mg 07/27/21 21:00 07/29/21 08:39 Ropinirole Hcl 1 Mg Tab PO 3 mg BID RONY Administration Zinc Sulfate 220 mg 07/28/21 09:00 07/29/21 08:38 Zinc Sulfate 220 Mg Cap PO 220 mg DAILY RONY Administration Intake and Output 07/28/21 07/29/21 07/29/21 22:59 06:59 14:59 Intake Total 170 Output Total 288 410 0304 Balance -500 -230 -1800 Intake: Intake, IV Titration 50 Amount ceFAZolin 2 gm In Sodium 50 Chloride 0.9% 50 ml @ 100 mls/hr IVPB Q8H [facility] Rx#: [id number] Oral 120 Output: Urine 505 599 [id number] Other: Voiding Method Bedpan Bedpan Diaper Diaper External Catheter External Catheter # Voids 1 Weight 120.202 kg Patient Weight 07/30/21 06:59 Weight 120.202 kg 07/29/21 10:33 07/29/21 10:33
[2021-07-29] MEDS: SODIUM CHLORIDE 0.9% 1,000 ML IV SCH (17:04)
--- NOTE | 2021-07-29 17:51 | P.CNPUL ---
History of Present Illness Consult date: 07/29/21 Requesting physician: Anibal Ferrari Reason for consult: dyspnea, COPD, hypoxemia, pulmonary hypertension, abnormal CXR/CT, obstructive sleep apnea Chief complaint: Mental status changes, hypercapnic respiratory failure. History of present illness: Pulmonary consult dated 07/29/2021. 86-year-old female seen in room 528. The patient was initially seen in the emergency department, on 07/27/2021. She apparently presented there with weakness, and somnolence. She apparently had not been doing well for the 2 days prior to admission. She was unable to get out of bed. She was very lethargic. The patient apparently had significant confusion and disorientation. The patient does apparently have a history of chronic hypoxemic respiratory failure and chronic hypercapnic respiratory failure, and previously was on CPAP, but could not tolerate it. She does use home O2 between 4-5 L by nasal cannula. Currently, she is on 3 L. The patient's BMP was 1090 and the pro-calcitonin level was 0.07. The patient apparently used to see Dr. Benitez. She apparently has a history of atrial fibrillation, ovarian cancer, CVA, hypertension, pneumonia, and C. difficile colitis. White count 13.9, with a normal hemoglobin, hematocrit, and platelet count. D-dimer is 0.56. But gases from the first show a PaO2 of 62, pCO2 of 61, and a pH is 7.46. That was on an FiO2 of 44%. Sodium 139, potassium 3.2, chloride 86, CO2 44, anion gap 9, BUN 17, creatinine 0.99. Urine is clean. Testing for sanchez virus was negative. CT angiogram was negative for PE. There were bibasilar patchy infiltrates. Review of Systems REVIEW OF SYSTEMS: CONSTITUTIONAL: Weakness, and weakness. NEUROLOGIC: [ Negative.] HEENT: [ Negative.] CARDIAC: Lower extremity edema. PULMONARY: Shortness of breath. GI: [Negative.] : [Negative.] RHEUMATOLOGIC: [ Negative.] IMMUNOLOGIC: [ Negative.] ENDOCRINE: [Negative. ] DERMATOLOGIC: [Negative.] Past Medical History Past Medical History: Atrial Fibrillation, Cancer, CVA/TIA, Hypertension, Pneumonia Additional Past Medical History / Comment(s): chronic back pain, ovarian cancer History of Any Multi-Drug Resistant Organisms: C-DIFF Date of last positivie culture/infection: stool MDRO Source:: 1998 Past Surgical History: Back Surgery, Hernia Repair, Hysterectomy Additional Past Surgical History / Comment(s): jero knee,brain tumor removed, exp lap Past Anesthesia/Blood Transfusion Reactions: No Reported Reaction Smoking Status: Former smoker - Past Family History Father Family Medical History: Myocardial Infarction ([place]) Mother Additional Family Medical History / Comment(s): parkinson's Sister(s) Family Medical History: Cancer Medications and Allergies Home Medications Medication Instructions Recorded Confirmed Type Atorvastatin [Lipitor] 40 mg PO DAILY 08/17/17 07/27/21 History DULoxetine HCL [Cymbalta] 20 mg PO DAILY 10/16/17 07/27/21 History HYDROcodone/APAP 7.5-325MG [[place] 1 tab PO BID PRN 03/15/18 07/27/21 History 7.5-325] Ipratropium-Albuterol Nebulize 3 ml INHALATION RT-BID PRN 03/15/18 07/27/21 H istory [Duoneb 0.5 mg-3 mg/3 ml Soln] Triamterene-Hctz 37.5-25Mg 1 cap PO DAILY 03/15/18 07/27/21 History [Dyazide 37.5-25 Capsule] Apixaban [Eliquis] 5 mg PO BID 12/12/19 07/27/21 History Fluticasone Nasal [place] [Flonase 1 spray EA NOSTRIL DAILY PRN 12/12/19 07/27/21 History Nasal [place]] Metoprolol Succinate [Toprol XL] 25 mg PO DAILY 12/12/19 07/27/21 History Clindamycin Phosp 1% Lotion 1 applic TOPICAL DAILY 06/15/21 07/27/21 History Clobetasol 0.05% Solution 1 applic TOPICAL DAILY 06/15/21 07/27/21 History Furosemide [Lasix] 20 mg PO DAILY 06/15/21 07/27/21 History Ibuprofen [Motrin] 600 mg PO Q12H PRN 06/15/21 07/27/21 History Triamcinolone 0.1% Ointment 1 applic TOPICAL DAILY 06/15/21 07/27/21 History [Kenalog 0.1% Ointment] rOPINIRole HCL [Requip] 3 mg PO BID 06/15/21 07/27/21 History Acetaminophen Tab [Tylenol] 650 mg PO Q6HR PRN tab 06/24/21 07/27/21 Rx Ascorbic Acid [Vitamin C] 500 mg PO DAILY 30 Days #30 tab 06/24/21 07/27/21 Rx Cholecalciferol [Vitamin D3 (25 25 mcg PO DAILY 30 Days #30 tablet 06/24/21 07/27/21 Rx Mcg = 1000 Iu)] Zinc Sulfate [Orazinc] 220 mg PO DAILY 30 Days #30 cap 06/24/21 07/27/21 Rx Albuterol Inhaler [Ventolin Hfa 2 puff INHALATION RT-QID PRN 07/17/21 07/27/21 History Inhaler] Cephalexin [Keflex] 500 mg PO Q12HR #20 cap 07/17/21 07/27/21 Rx Pregabalin [Lyrica] 150 mg PO TID 07/17/21 07/27/21 History Allergies Allergy/AdvReac Type Severity Reaction Status Date / Time Penicillins Allergy Swelling/it Verified 07/27/21 13:29 lolis Physical Exam Osteopathic Statement: *. No significant issues noted on an osteopathic structural exam other than those noted in the History and Physical/Consult. Vitals: Vital Signs Temp Pulse Pulse Resp BP BP Pulse Ox 07/29/21 16:29 76 07/29/21 16:19 74 07/29/21 12:00 97.9 F 66 16 97/51 91 L 07/29/21 04:25 97.8 F 58 L 16 111/67 91 L 07/28/21 21:09 74 07/28/21 21:01 70 07/28/21 19:20 98.4 F 77 18 135/78 91 L Intake and Output 07/29/21 07/29/21 07/29/21 06:59 14:59 22:59 Intake Total 170 Output Total 400 1800 Balance -230 -1800 Intake: Intake, IV Titration 50 Amount ceFAZolin 2 gm In Sodium 50 Chloride 0.9% 50 ml @ 100 mls/hr IVPB Q8H [facility] Rx#: [id number] Oral 120 Output: Urine 400 1800 Other: Voiding Method Bedpan Diaper External Catheter Weight 120.202 kg Very sleepy and lethargic, but does arouse. Currently on 3 L nasal cannula. Saturations 91%. No overt respiratory distress. HEENT examination is grossly unremarkable. Neck supple. Full range of motion. No adenopathy thyromegaly or neck vein distention. Cardiovascular examination reveals regular rhythm rate. S1-S2 normal. No S3 or S4. No discernible murmur noted. Heart sounds are distant. Heart rate 76 bpm. Lungs reveal mild scattered rhonchi. No wheezes or crackles. Breath sounds equal. She does not take deep breaths. Abdomen obese, with normal bowel sounds. No masses or tenderness. Extremities are intact. 1+ lower extremity edema. No cyanosis or clubbing. Skin is without rash or lesion. Neurologic examination is brief but nonfocal. She is very lethargic and somnolent. Results - Laboratory Findings CBC and BMP: 07/29/21 10:33 07/29/21 10:33 ABG ABG pH 7.46 (7.35-7.45) H 07/27/21 13:23 ABG pCO2 61 mmHg (35-45) H 07/27/21 13:23 ABG pO2 62 mmHg (83-108) L 07/27/21 13:23 ABG O2 Saturation 93.7 % (94-97) L 07/27/21 13:23 PT/INR, D-dimer PT 10.4 sec (9.0-12.0) 07/27/21 11:45 INR 1.0 (<1.2) 07/27/21 11:45 D-Dimer 0.56 mg/L FEU (<0.60) 07/27/21 18:13 Abnormal lab findings: Abnormal Labs 07/27/21 07/27/21 07/27/21 11:45 11:45 11:45 WBC MCHC 30.8 L RDW 16.6 H Neutrophils # Lymphocytes # 0.8 L APTT 31.0 H ABG pH ABG pCO2 ABG pO2 ABG HCO3 ABG Total CO2 ABG O2 Saturation Sodium 133 L Potassium Chloride 84 L Carbon Dioxide 43 H* Glucose Total Protein 6.2 L Urine Ketones 07/27/21 07/27/21 07/29/21 13:05 13:23 10:33 WBC 13.9 H MCHC RDW 16.6 H Neutrophils # 13.0 H Lymphocytes # 0.5 L APTT ABG pH 7.46 H ABG pCO2 61 H ABG pO2 62 L ABG HCO3 43 H* ABG Total CO2 45 H ABG O2 Saturation 93.7 L Sodium Potassium Chloride Carbon Dioxide Glucose Total Protein Urine Ketones Trace H 07/29/21 10:33 WBC MCHC RDW Neutrophils # Lymphocytes # APTT ABG pH ABG pCO2 ABG pO2 ABG HCO3 ABG Total CO2 ABG O2 Saturation Sodium Potassium 3.2 L Chloride 86 L Carbon Dioxide 44 H* Glucose 157 H Total Protein Urine Ketones - Diagnostic Findings Chest x-ray: image reviewed CT scan - chest: image reviewed Assessment and Plan Assessment: Acute on chronic hypoxemic and hypercapnic respiratory failure, likely multifactorial, in part related to sleep apnea syndrome, obesity/hypoventilation syndrome, and possible underlying COPD from previous tobacco use. Possible underlying secondary pulmonary hypertension. History of atrial fibrillation. History of ovarian cancer. History of CVA. History of hypertension. History of pneumonia. History of C. difficile colitis. Morbid obesity. Plan: Plan dated 07/29/2021. The patient will be placed on BiPAP, with settings of 12/5 and 40%. The patient's pro-calcitonin level is very low. N-terminal proBNP is 1090. The patient apparently used to see Dr. Benitez, but the daughter, does not want to go back to his office. The patient is currently on DuoNeb nebs, Solu-Medrol, and Ancef. I will add Symbicort. In addition, the patient will be set up on BiPAP therapy. We'll need to see her in the office post discharge. She will need a complete pulmonary function test. Saturations need to be maintained, between 88 and 92%. Additional recommendations and suggestions are forthcoming. Prognosis is guarded. Time with Patient: Greater than 30
--- NOTE | 2021-07-29 18:12 | PN ---
PROGRESS NOTE DATE OF SERVICE: 07/29/2021 This 86-year-old woman who was admitted with generalized weakness also had recent COVID infection, bilateral interstitial infiltrates. Cultures are negative at this time. PT/OT is evaluating the patient. The patient also had acute hypoxic respiratory failure. A chest CT scan was done yesterday which was reviewed personally by me. It showed some evidence of persistent bilateral infiltrates and fibrosis type of lesions. Past medical history reviewed. REVIEW OF SYSTEMS: CARDIOVASCULAR SYSTEM: No angina. RESPIRATION: As mentioned earlier. GI: As mentioned earlier. : No dysuria. NERVOUS SYSTEM: No numbness, weakness. CURRENT MEDICATIONS: Reviewed. They include Tylenol, [place], DuoNeb, Eliquis, vitamin C. Doses and other medications are reviewed. PHYSICAL EXAMINATION: Patient is alert, oriented x3. The pulse is 66, blood pressure 97/52, respirations 16, temperature 97.9, pulse ox 91% on room air. HEENT: Conjunctivae normal. NECK: No jugular venous distention. CARDIOVASCULAR: S1, S2 muffled. RESPIRATION: Breath sounds diminished at the bases. A few scattered rhonchi and crackles. ABDOMEN: Soft, nontender. LEGS: No edema. No swelling. NERVOUS SYSTEM: No focal deficit. LAB STUDIES: WBC 13.9, hemoglobin 13.6. Sodium 139, potassium 3.2. ASSESSMENT: 1. Diffuse generalized weakness and generalized deconditioning. 2. Acute hypoxic hypercarbic respiratory failure, possibly secondary to obesity hypoventilation syndrome. 3. Congestive heart failure, acute exacerbation, with acute on chronic diastolic dysfunction, ejection fraction 60%. 4. Bilateral lung lesions, possibly pulmonary fibrosis, recent after acute COVID- 19 bilateral pneumonia. 5. Hyponatremia. 6. Rule out congestive heart failure or superadded pneumonia. 7. Gait dysfunction. 8. History of atrial fibrillation. 9. History of recent prolonged COVID-19 infection. 10.History of cerebrovascular accident, transient ischemic attack. 11.Hypertension. 12.History of pneumonia. 13.History of chronic back pain. 14.History of ovarian cancer. 15.History of Clostridium difficile colitis. 16.History of degenerative joint disease and back pain. 17.History of depression. 18.Remote history of nicotine dependence. 19.Super morbid obesity with body mass index of 48.5. 20.FULL CODE. RECOMMENDATIONS AND DISCUSSION: Will continue to monitor. D-dimer was normal and procalcitonin was also normal. BNP was only 1090 and a 2D echo with Doppler which was reviewed personally indicates ejection fraction about 60% to 65%. Cardiology is also seeing the patient. At this time I recommend to continue the current medications. The patient has generalized deconditioning. PT/OT evaluation. Recommend possibly ECF rehab at this time. Possibility of acute on chronic diastolic dysfunction has been noted. I would also recommend a repeat chest x-ray tomorrow and continue to monitor. PT/OT evaluation and possible ECF rehab. MMALIYAHL / CATHYN: [id number] / MTDD
[2021-07-29] MEDS: SYMBICORT 160-4.5 MCG INHALER INHALATION SCH (20:18)
--- NOTE | 2021-07-29 22:54 | PN ---
PROGRESS NOTE DATE OF SERVICE: 07/29/2021 REASON FOR FOLLOWUP: 1. Right lower extremity cellulitis. 2. Stage II sacral pressure ulcer cellulitis. INTERVAL HISTORY: The patient is afebrile. The patient is breathing comfortably. Denies having any chest pain, shortness of breath or cough. No abdominal pain. Overall pain and discomfort to the sacral area has decreased. PHYSICAL EXAMINATION: Blood pressure 105/62 with a pulse of 65, temperature is 97.9. She is 92% on 40% FiO2. General description is an elderly female lying in bed in no distress. Respiratory system: Unlabored breathing, decreased intensity of breath sounds. No wheeze. Heart S1, S2. Regular rate and rhythm. Abdomen: Soft. Legs are currently wrapped up in Don wrap. No drainage on the dressing. LABS: Hemoglobin is 13.8, white count 13.9, creatinine 0.99. DIAGNOSTIC IMPRESSION AND PLAN: 1. Patient with right lower extremity swelling, redness, concern for underlying cellulitis. To continue with cefazolin 2 grams q.12 hours along with Don wrap to the leg. 2. Sacral pressure ulcer, stage II. No cellulitis. Local care with the skin barrier cream and keep the area off pressure. MMODL / IJN: [id number] /
[2021-07-30] MEDS: methylPREDNISolone SOD SUCCI 125 MG/2 ML VIAL IV SCH ×5 (00:35→23:11)
[2021-07-30] MEDS: FUROSEMIDE 10 MG/ML 4 ML VIAL IV SCH ×2 (05:56→17:26)
[2021-07-30 06:29] LABS: Anisocytosis Slight; Basophils % (A) 0 %; Eosinophils % (A) 0 %; HCT 42.3 % (34.0-46.0); HGB 13.2 gm/dL (11.4-16.0); Hypochromasia Slight; Lymphocytes # (A) 0.7 k/uL (1.0-4.8); Lymphocytes % (A) 4 %; MCH 29.6 pg (25.0-35.0); MCHC 31.1 g/dL (31.0-37.0); Mean Platelet Volume 8.9; Monocytes # (A) 0.4 k/uL (0-1.0); Monocytes % (A) 3 %; Neutrophils % (A) 93 %; Platelet Count 223 k/uL (150-450); RBC 4.45 m/uL (3.80-5.40); RDW 16.4 % (11.5-15.5); WBC 16.1 k/uL (3.8-10.6)
[2021-07-30] MEDS: IPRATROPIUM-ALBUTEROL 3 ML NEB INHALATION SCH ×4 (07:24→19:39)
[2021-07-30] MEDS: SYMBICORT 160-4.5 MCG INHALER INHALATION SCH ×2 (07:24→19:39)
[2021-07-30] MEDS: PREGABALIN 75 MG CAP PO SCH ×3 (08:40→22:10)
[2021-07-30] MEDS: ZINC SULFATE 220 MG CAP PO SCH (08:41)
[2021-07-30] MEDS: ASCORBIC ACID 500 MG TAB PO SCH (08:41)
[2021-07-30] MEDS: ATORVASTATIN 40 MG TAB PO SCH (08:41)
[2021-07-30] MEDS: acetaZOLAMIDE 250 MG TAB PO SCH ×2 (08:41→22:09)
[2021-07-30] MEDS: CHOLECALCIFEROL 25 MCG (1000 IU) TABLET PO SCH (08:41)
[2021-07-30] MEDS: APIXABAN 5 MG TAB PO SCH ×2 (08:41→22:09)
[2021-07-30] MEDS: METOPROLOL SUCCINATE (ER) 25 MG TAB.ER.24H PO SCH (08:41)
[2021-07-30] MEDS: DULoxetine HCL 20 MG CAPSULE.DR PO SCH (08:42)
[2021-07-30] MEDS: CLOBETASOL PROP 0.05% OINT 15GM TOPICAL SCH (08:42)
[2021-07-30] MEDS: CLINDAMYCIN PHOSP 1% TOPICAL SCH (08:45)
--- NOTE | 2021-07-30 09:03 | XR ---
EXAMINATION TYPE: XR chest 1V portable DATE OF EXAM: 07/30/2021 COMPARISON: Chest x-ray 07/27/2021, CT chest 07/28/2021 HISTORY: Congestive heart failure TECHNIQUE: Single frontal view of the chest is obtained. FINDINGS: Bandlike areas of increased attenuation are present bilaterally within the central lungs. No evident pneumothorax or pleural effusion. Cardiac mediastinal silhouette is stable, heart is enlar ged. Aorta is dense. IMPRESSION: Atelectasis, correlate for possible pneumonia. Cardiomegaly.
[2021-07-30 09:14] LABS: African American GFR (CKD) 62.6 (60.0-200.0); Anion Gap 14.2 mmol/L (10.00-18.00); BUN/Creat Ratio 19.71 Ratio (12.00-20.00); Blood Urea Nitrogen 18.9 mg/dL (9.0-27.0); Calcium 9.2 mg/dL (8.7-10.3); Carbon Dioxide 36.7 mmol/L (20.0-27.5); Potassium 3.2 mmol/L (3.5-5.5)
[2021-07-30] MEDS ORDERED: Potassium Replacement Protocol 1 EACH MISC MISCELLANE PRN ×2 (10:36→14:53)
[2021-07-30] MEDS: POTASSIUM CHLORIDE ER 20 MEQ TAB.ER PO SCH ×3 (11:59→15:36)
--- NOTE | 2021-07-30 13:03 | P.PN ---
Subjective This is a pleasant 86-year-old female past medical history significant for paroxysmal atrial fibrillation, aortic stenosis, typical atrial flutter, recent admission for covid 19 infection. She follows in the office with Dr. Watts. We have been asked to see in consultation for congestive heart failure. Patient presents to the emergency department with shortness of breath, lower extremity edema and generalized weakness. Patient seen and examined at bedside, no acute distress. Labs reviewed, WBC 16.1, Hgb 13.2, Plt 223, Sodium 141, potassium 3.2, BUN 90, At 36, BUN 18, 1.0. Vital signs are stable. Patient requiring BIPAP overnight. PHYSICAL EXAMINATION Vitals reviewed CONSTITUTIONAL: No apparent distress. HEENT: Neck supple. CHEST EXAMINATION: Lungs are diminished to auscultation. HEART EXAMINATION: Regular rate and rhythm. S1, S2 heard. No murmurs, gallops or rub. ABDOMEN: Soft, nontender. Positive bowel sounds. EXTREMITIES: 2+ peripheral pulses, no lower extremity edema and no calf tenderness. NEUROLOGIC EXAMINATION: Patient is awake, alert and oriented x3. ASSESSMENT Shortness of breath Acute o chronic hypoxic, hypercapnic respiratory failure Generalized weakness Acute on chronic diastolic heart failure Paroxysmal atrial fibrillation on eliquis Typical atrial flutter Hypokalemia PLAN Replace potassium per protocol We will continue current medication regimen. Continue Diamox Continue IV Lasix 40 mg twice a day for additional 24 hours Monitor I/Os, daily weights, renal function and electrolytes Continue Eliquis, statin, metoprolol succinate Pulmonary following appreciate recs Further recommendations based on clinical course Nurse Practitioner note has been reviewed, I agree with a documented findings and plan of care. Patient was seen and examined. Objective - Vital Signs Vital signs: Vital Signs Temp 97.3 F L 07/30/21 03:40 Pulse 60 07/30/21 11:38 Resp 16 07/30/21 03:40 BP 137/78 07/30/21 08:36 Pulse Ox 93 L 07/30/21 03:40 Intake & Output 07/29/21 07/30/21 07/30/21 18:59 06:59 18:59 Output Total 1800 500 Balance -1800 -500 Weight 120.202 kg 89.5 kg Output: Urine 1800 500 Other: Voiding Method Bedpan Bedpan Bedpan Diaper Diaper Diaper External Catheter External Catheter External Catheter # Voids 1 - Labs CBC & Chem 7: 01/04/22 05:49 07/30/21 05:49 Labs: Abnormal Lab Results - Last 24 Hours (Table) 07/30/21 07/30/21 Range/Units 05:49 05:49 WBC 16.1 H (3.8-10.6) k/uL RDW 16.4 H (11.5-15.5) % Neutrophils # 15.0 H (1.3-7.7) k/uL Lymphocytes # 0.7 L (1.0-4.8) k/uL Potassium 3.2 L (3.5-5.5) mmol/L Chloride 90 L (96-109) mmol/L Carbon Dioxide 36.7 H (20.0-27.5) mmol/L Est GFR (CKD-EPI)NonAf 54.0 L (60.0-200.0) Glucose 123 H (70-110) mg/dL
--- NOTE | 2021-07-30 14:10 | P.PN ---
Subjective Progress Note Date: 07/30/21 Principal diagnosis: Hypoxemic and hypercapnic respiratory failure. Pulmonary consult dated 07/29/2021. 86-year-old female seen in room 528. The patient was initially seen in the emergency department, on 07/27/2021. She apparently presented there with weakness, and somnolence. She apparently had not been doing well for the 2 days prior to admission. She was unable to get out of bed. She was very lethargic. The patient apparently had significant confusion and disorientation. The patient does apparently have a history of chronic hypoxemic respiratory failure and chronic hypercapnic respiratory failure, and previously was on CPAP, but could not tolerate it. She does use home O2 between 4-5 L by nasal cannula. Currently, she is on 3 L. The patient's BMP was 1090 and the pro-calcitonin level was 0.07. The patient apparently used to see Dr. Benitez. She apparently has a history of atrial fibrillation, ovarian cancer, CVA, hypertension, pneumonia, and C. difficile colitis. White count 13.9, with a normal hemoglobin, hematocrit, and platelet count. D-dimer is 0.56. But gases from the first show a PaO2 of 62, pCO2 of 61, and a pH is 7.46. That was on an FiO2 of 44%. Sodium 139, potassium 3.2, chloride 86, CO2 44, anion gap 9, BUN 17, creatinine 0.99. Urine is clean. Testing for sanchez virus was negative. CT angiogram was negative for PE. There were bibasilar patchy infiltrates. Progress note dated 07/30/2021. 86-year-old female seen again in room 528. The patient is much more awake today than she was yesterday. We ordered BiPAP for her. Her settings included 12/5 and 40%. She is much more awake. I told her nurse, that the patient could be on nasal O2 during the daytime, and BiPAP at nighttime. We seen a nice reduction in her bicarbonate concentration on her electrolyte profile. Her daughter is very pleased. White count 16.1, hemoglobin 13.2, hematocrit 42.3, and platelet count normal. Sodium 141, potassium 3.2, chlorides 90, CO2 37, compared to 44 yesterday. Anion gap, BUN, and creatinine are all essentially normal. Chest x-ray show some bibasilar atelectasis, left greater than right. Objective - Vital Signs Vital signs: Vital Signs Temp 97.3 F L 07/30/21 03:40 Pulse 60 07/30/21 11:38 Resp 16 07/30/21 03:40 BP 137/78 07/30/21 08:36 Pulse Ox 93 L 07/30/21 03:40 Intake & Output 07/29/21 07/30/21 07/30/21 18:59 06:59 18:59 Output Total 1800 500 Balance -1800 -500 Weight 120.202 kg 89.5 kg Output: Urine 1800 500 Other: Voiding Method Bedpan Bedpan Bedpan Diaper Diaper Diaper External Catheter External Catheter External Catheter # Voids 1 - Exam Much more awake and alert. BiPAP mask in place. HEENT examination is grossly unremarkable. Neck supple. Full range of motion. No adenopathy thyromegaly or neck vein distention. Cardiovascular examination reveals regular rhythm rate. S1-S2 normal. No S3 or S4. No discernible murmur noted. Heart sounds are distant. Heart rate 60 bpm. Lungs reveal mild scattered rhonchi. No wheezes or crackles. Breath sounds equal. She does not take deep breaths. Abdomen obese, with normal bowel sounds. No masses or tenderness. Extremities are intact. 1+ lower extremity edema. No cyanosis or clubbing. Skin is without rash or lesion. Neurologic examination is brief but nonfocal. The patient is much more awake and alert today. She is able to have a conversation. - Labs CBC & Chem 7: 07/30/21 05:49 07/30/21 05:49 Labs: Abnormal Lab Results - Last 24 Hours (Table) 07/30/21 07/30/21 Range/Units 05:49 05:49 WBC 16.1 H (3.8-10.6) k/uL RDW 16.4 H (11.5-15.5) % Neutrophils # 15.0 H (1.3-7.7) k/uL Lymphocytes # 0.7 L (1.0-4.8) k/uL Potassium 3.2 L (3.5-5.5) mmol/L Chloride 90 L (96-109) mmol/L Carbon Dioxide 36.7 H (20.0-27.5) mmol/L Est GFR (CKD-EPI)NonAf 54.0 L (60.0-200.0) Glucose 123 H (70-110) mg/dL Assessment and Plan Assessment: Acute on chronic hypoxemic and hypercapnic respiratory failure, likely multifactorial, in part related to sleep apnea syndrome, obesity/hypoventilation syndrome, and possible underlying COPD from previous tobacco use. Possible underlying secondary pulmonary hypertension. History of atrial fibrillation. History of ovarian cancer. History of CVA. History of hypertension. History of pneumonia. History of C. difficile colitis. Morbid obesity. Plan: Plan dated 07/29/2021. The patient will be placed on BiPAP, with settings of 12/5 and 40%. The patient's pro-calcitonin level is very low. N-terminal proBNP is 1090. The patient apparently used to see Dr. Benitez, but the daughter, does not want to go ba ck to his office. The patient is currently on DuoNeb nebs, Solu-Medrol, and Ancef. I will add Symbicort. In addition, the patient will be set up on BiPAP therapy. We'll need to see her in the office post discharge. She will need a complete pulmonary function test. Saturations need to be maintained, between 88 and 92%. Additional recommendations and suggestions are forthcoming. Prognosis is guarded. Plan dated 07/30/2021. The patient is doing much better. She is tolerating the BiPAP well settings of IPAP 12, EPAP 5, and we percent. The patient is much more awake and alert. The patient's pro-calcitonin level is very low. I told the nurse, that the patient can be on nasal cannula, during the daytime, and the BiPAP in the evening. Her saturations are perfectly acceptable between 88 and 92%. If her saturations are too high, she'll become much more hypercarbic, and she will end up becoming very lethargic and sleepy again. We will be happy to see her post discharge. Additional recommendations and suggestions are forthcoming. Time with Patient: Less than 30
[2021-07-30] MEDS ORDERED: Magnesium Replacement Protocol 1 EACH MISC MISCELLANE PRN (14:53)
[2021-07-30] MEDS: SODIUM CHLORIDE 0.9% 1,000 ML IV SCH (15:43)
--- NOTE | 2021-07-30 15:52 | PN ---
PROGRESS NOTE DATE OF SERVICE: 07/30/2021 This 86-year-old woman who was admitted with generalized weakness also had recent Covid 19 pneumonia. The patient also had acute hypoxic hypercarbic respiratory failure. The patient is on BiPAP. The most recent chest x-ray done today which is reviewed personally by me showed bilateral lesions, possibly pulmonary fibrosis and possibly secondary to Covid 19 after effects also. No chest pain. No palpitations. No fever. ECF rehab is planned. PHYSICAL EXAMINATION: Alert and oriented x3. The pulse is70. Blood pressure is 137/72. Respiratory rate 20. Temperature normal. Pulse ox normal on BiPAP. BIPAP settings are noted. HEENT: Conjunctivae normal. Neck: No JVD. Cardiovascular: S1, S2 muffled. Respiration: A few scattered rhonchi. Abdomen: Soft. Nervous system: No focal deficits. LABS: WBC 16.1, sodium 141, potassium 3.2. Covid 19 is negative. ASSESSMENT: 1. Diffuse generalized weakness and generalized deconditioning, possibly secondary to long Covid. 2. Acute hypoxic hypercarbic respiratory failure possibly secondary to obesity hypoventilation syndrome and multifactorial. 3. Congestive heart failure acute exacerbation, acute on chronic diastolic dysfunction, ejection fraction 60%. 4. Bilateral lung lesions, possibly pulmonary fibrosis or after effects of acute Covid 19 bilateral pneumonia. rt lower extimity celluliitis stage 2 sacral decubitus pressure ulcer present on admission 5. Hyponatremia. 6. Possible superadded pneumonia. 7. Gait dysfunction. 8. History of atrial fibrillation. 9. History of recent prolonged Covid 19 infection. 10.History of cerebrovascular accident, transient ischemic attack. 11.Hypertension. 12.History of pneumonia. 13.History of chronic back pain. 14.History of ovarian cancer. 15.History of C-difficile colitis. 16.History of degenerative joint disease and back pain. 17.History of depression. 18.Remote history of nicotine dependence. 19.Super morbid obesity with body mass index of 40.5. 20.FULL CODE. RECOMMENDATIONS AND DISCUSSION: Recommend to continue current medications, management and symptomatic treatment. Otherwise, at this time,I would recommend BiPAP, bronchodilators. The patient is also on Lasix. We will continue to monitor. White count is elevated. The patient is on IV steroids. Patient is on apixaban. The patient is also on cefazolin. Guarded prognosis. Further recommendations to follow. We will obtain the cultures also. Possible ECF rehab. TAMIA / CATHYN: [id number] / ELLIA
[2021-07-30 21:40] VITALS: RESP 20
--- NOTE | 2021-07-30 23:52 | PN ---
PROGRESS NOTE DATE OF SERVICE: 07/30/2021 REASON FOR FOLLOWUP: 1. Right lower extremity cellulitis. 2. Stage II sacral pressure ulcer. INTERVAL HISTORY: The patient is afebrile. The patient is breathing comfortably. The patient denies having any chest pain, shortness of breath or cough. No abdominal pain or any worsening pain to the sacral wound area. PHYSICAL EXAMINATION: Blood pressure 135/66, pulse of 72, temperature 98.2. General description is an elderly female lying in bed in no distress. Respiratory system: Unlabored breathing, decreased intensity of breath sounds. No wheeze. Heart S1, S2. Regular rate and rhythm. Abdomen: Soft, no tenderness. Right leg is currently dressed. No obvious drainage on the dressing. LABS: Hemoglobin 13.1, white count 16.1, creatinine 1.09. DIAGNOSTIC IMPRESSION AND PLAN: 1. Patient with right lower extremity cellulitis, covered with cefazolin to continue along with Don wrap to the leg to keep the swelling down. 2. Sacral pressure ulcer, stage II. No cellulitis. Continue with skin barrier cream and keep the area off the pressure. 3. Elevated white, count more likely steroid effect. MMODL / IJN: [id number] /
[2021-07-31] MEDS: FUROSEMIDE 10 MG/ML 4 ML VIAL IV SCH (05:18)
[2021-07-31] MEDS: methylPREDNISolone SOD SUCCI 125 MG/2 ML VIAL IV SCH ×3 (05:20→17:07)
[2021-07-31 06:56] LABS: Anisocytosis Slight; Basophils % (A) 0 %; Eosinophils % (A) 0 %; HGB 13.5 gm/dL (11.4-16.0); Hypochromasia Slight; Lymphocytes # (A) 0.8 k/uL (1.0-4.8); Lymphocytes % (A) 5 %; MCH 29.8 pg (25.0-35.0); MCHC 31.4 g/dL (31.0-37.0); MCV 94.7 fL (80.0-100.0); Mean Platelet Volume 8.9; Monocytes # (A) 0.5 k/uL (0-1.0); Monocytes % (A) 3 %; Neutrophils # (A) 15.3 k/uL (1.3-7.7); Neutrophils % (A) 92 %; Platelet Count 241 k/uL (150-450); RBC 4.54 m/uL (3.80-5.40); RDW 16.2 % (11.5-15.5); WBC 16.6 k/uL (3.8-10.6)
[2021-07-31 07:06] LABS: ALT 10 U/L (4-34); AST 30 U/L (14-36); African American GFR (CKD) 51 (>60 ml/min/1.73 sqM); Albumin 3.6 g/dL (3.5-5.0); Albumin/Globulin Ratio 1.2; Alkaline Phosphatase 86 U/L (38-126); Blood Urea Nitrogen 25 mg/dL (7-17); Calcium 8.9 mg/dL (8.4-10.2); Chloride 89 mmol/L (98-107); Glucose 126 mg/dL (74-99); Magnesium 2.4 mg/dL (1.6-2.3); Non-African American GFR(CKD) 45 (>60 ml/min/1.73 sqM); Potassium 3.2 mmol/L (3.5-5.1); Sodium 137 mmol/L (137-145); Total Bilirubin 0.5 mg/dL (0.2-1.3); Total Protein 6.6 g/dL (6.3-8.2)
[2021-07-31 07:12] LABS: Anion Gap 10 mmol/L; Carbon Dioxide 38 mmol/L (22-30)
[2021-07-31] MEDS: IPRATROPIUM-ALBUTEROL 3 ML NEB INHALATION SCH ×4 (07:39→20:04)
[2021-07-31] MEDS: SYMBICORT 160-4.5 MCG INHALER INHALATION SCH ×2 (07:39→20:04)
[2021-07-31] MEDS: ASCORBIC ACID 500 MG TAB PO SCH (08:38)
[2021-07-31] MEDS: APIXABAN 5 MG TAB PO SCH ×2 (08:38→20:42)
[2021-07-31] MEDS: ATORVASTATIN 40 MG TAB PO SCH (08:38)
[2021-07-31] MEDS: ZINC SULFATE 220 MG CAP PO SCH (08:38)
[2021-07-31] MEDS: PREGABALIN 75 MG CAP PO SCH ×3 (08:38→20:43)
[2021-07-31] MEDS: METOPROLOL SUCCINATE (ER) 25 MG TAB.ER.24H PO SCH (08:39)
[2021-07-31] MEDS: CHOLECALCIFEROL 25 MCG (1000 IU) TABLET PO SCH (08:39)
[2021-07-31] MEDS: CLOBETASOL PROP 0.05% OINT 15GM TOPICAL SCH (08:39)
[2021-07-31] MEDS: DULoxetine HCL 20 MG CAPSULE.DR PO SCH (08:39)
[2021-07-31] MEDS: acetaZOLAMIDE 250 MG TAB PO SCH (08:39)
[2021-07-31] MEDS: CLINDAMYCIN PHOSP 1% TOPICAL SCH (08:48)
--- NOTE | 2021-07-31 10:27 | P.PN ---
Subjective This is a pleasant 86-year-old female past medical history significant for paroxysmal atrial fibrillation, aortic stenosis, typical atrial flutter, recent admission for covid 19 infection. She follows in the office with Dr. Watts. We have been asked to see in consultation for congestive heart failure. Patient presents to the emergency department with shortness of breath, lower extremity edema and generalized weakness. She has been diuresed with IV Lasix 40mg BID. Patient with documented 2.3L urine output over the past 24 hours, some inconti nence. Weight has decreased since admission. Patient seen and examined at bedside, no acute distress. She denies any chest pain or shortness of breath. She is lying comfortably, no acute distress. She is on nasal cannula. Labs reviewed, WBC 16.6, Hgb 13.5, Plt 241. Patient with slight increase in serum creatinine. Sodium 137, potassium 3.2, BUN 25, serum creatinine 1.13. Vital signs are stable. PHYSICAL EXAMINATION Vitals reviewed CONSTITUTIONAL: No apparent distress. HEENT: Neck supple. CHEST EXAMINATION: Lungs are diminished to auscultation. HEART EXAMINATION: Regular rate and rhythm. S1, S2 heard. No murmurs, gallops or rub. ABDOMEN: Soft, nontender. Positive bowel sounds. EXTREMITIES: 2+ peripheral pulses, improvement in bilateral lower extremity edema. GAGANDEEP bandages to bilateral legs up to knees NEUROLOGIC EXAMINATION: Patient is awake, alert and oriented x 2. ASSESSMENT Shortness of breath Acute on chronic hypoxic, hypercapnic respiratory failure Generalized weakness Acute on chronic diastolic heart failure Paroxysmal atrial fibrillation on eliquis Typical atrial flutter Hypokalemia Sacral pressure ulcer PLAN Replace potassium per protocol From a cardiology perspective, patient is stable and has improved since admisssion. We will switch patient to PO Lasix 40mg daily, continue Diamox at 250mg daily Continue Eliquis, statin, metoprolol succinate No further intervention or changes at this time. We will follow the patient as needed. Follow up with Dr. Watts outpatient on discharge Nurse Practitioner note has been reviewed, I agree with a documented findings and plan of care. Patient was seen and examined. Objective - Vital Signs Vital signs: Vital Signs Temp 97.4 F L 07/31/21 05:00 Pulse 60 07/31/21 07:51 Resp 20 07/31/21 05:00 BP 130/77 07/31/21 05:00 Pulse Ox 89 L 07/30/21 20:00 Intake & Output 07/30/21 07/31/21 07/31/21 18:59 06:59 18:59 Intake Total 950 Output Total 1 Balance 949 Weight 86 kg Intake: Oral 950 Output: Urine/Stool Mix 1 Other: Voiding Method Bedpan Bedpan Diaper Diaper External Catheter External Catheter # Voids 1 # Bowel Movements 1 - Labs CBC & Chem 7: 07/31/21 06:34 07/31/21 06:34 Labs: Abnormal Lab Results - Last 24 Hours (Table) 07/31/21 07/31/21 Range/Units 06:34 06:34 WBC 16.6 H (3.8-10.6) k/uL RDW 16.2 H (11.5-15.5) % Neutrophils # 15.3 H (1.3-7.7) k/uL Lymphocytes # 0.8 L (1.0-4.8) k/uL Potassium 3.2 L (3.5-5.1) mmol/L Chloride 89 L (98-107) mmol/L Carbon Dioxide 38 H (22-30) mmol/L BUN 25 H (7-17) mg/dL Creatinine 1.13 H (0.52-1.04) mg/dL Glucose 126 H (74-99) mg/dL Magnesium 2.4 H (1.6-2.3) mg/dL
[2021-07-31] MEDS: SODIUM CHLORIDE 0.9% 1,000 ML IV SCH (11:49)
[2021-07-31] MEDS: POTASSIUM CHLORIDE ER 20 MEQ TAB.ER PO SCH ×3 (11:53→17:07)
[2021-07-31] MEDS ORDERED: Magnesium Replacement Protocol 1 EACH MISC MISCELLANE PRN (14:40)
[2021-07-31] MEDS ORDERED: Potassium Replacement Protocol 1 EACH MISC MISCELLANE PRN (14:40)
--- NOTE | 2021-07-31 15:36 | P.PN ---
Subjective Progress Note Date: 07/31/21 Principal diagnosis: Acute on chronic hypoxemic/hypercapnic respiratory failure 86-year-old female seen in room 528. The patient was initially seen in the emergency department, on 07/27/2021. She apparently presented there with weakness, and somnolence. She apparently had not been doing well for the 2 days prior to admission. She was unable to get out of bed. She was very lethargic. The patient apparently had significant confusion and disorientation. The patient does apparently have a history of chronic hypoxemic respiratory failure and chronic hypercapnic respiratory failure, and previously was on CPAP, but could not tolerate it. She does use home O2 between 4-5 L by nasal cannula. Currently, she is on 3 L. The patient's BMP was 1090 and the pro-calcitonin l evel was 0.07. The patient apparently used to see Dr. Benitez. She apparently has a history of atrial fibrillation, ovarian cancer, CVA, hypertension, pneumonia, and C. difficile colitis. White count 13.9, with a normal hemoglobin, hematocrit, and platelet count. D-dimer is 0.56. But gases from the first show a PaO2 of 62, pCO2 of 61, and a pH is 7.46. That was on an FiO2 of 44%. Sodium 139, potassium 3.2, chloride 86, CO2 44, anion gap 9, BUN 17, creatinine 0.99. Urine is clean. Testing for sanchez virus was negative. CT angiogram was negative for PE. There were bibasilar patchy infiltrates. Progress note dated 07/30/2021. 86-year-old female seen again in room 528. The patient is much more awake today than she was yesterday. We ordered BiPAP for her. Her settings included 12/5 and 40%. She is much more awake. I told her nurse, that the patient could be on nasal O2 during the daytime, and BiPAP at nighttime. We seen a nice reduction in her bicarbonate concentration on her electrolyte profile. Her daughter is very pleased. White count 16.1, hemoglobin 13.2, hematocrit 42.3, and platelet count normal. Sodium 141, potassium 3.2, chlorides 90, CO2 37, compared to 44 yesterday. Anion gap, BUN, and creatinine are all essentially normal. Chest x-ray show some bibasilar atelectasis, left greater than right. The patient is seen today 07/31/2021 in follow-up on the regular medical floor. She is currently sitting up in bed. Awake and alert. Family at the bedside. Currently maintaining O2 saturations in the 90s on 5 L/m per nasal cannula. She's been afebrile. Hemodynamically stable. White count 16.6. Hemoglobin 13.5. Leukocytes 0.8. Sodium 137. Potassium 3.2. Creatinine 1.13. Glucose 126. AST 30. ALT 10. She is continued on Symbicort, DuoNeb inhalations, IV site Medrol. Anticoagulated with Eliquis. Remains on antibiotics in the form of cefazolin. Objective - Vital Signs Vital signs: Vital Signs Temp 98.7 F 07/31/21 11:08 Pulse 64 07/31/21 11:24 Resp 20 07/31/21 11:08 BP 152/78 07/31/21 11:08 Pulse Ox 94 L 07/31/21 11:08 Intake & Output 07/30/21 07/31/21 07/31/21 18:59 06:59 18:59 Intake Total 950 240 Output Total 1 1000 Balance 949 -760 Weight 86 kg Intake: Oral 950 240 Output: Urine 1000 Urine/Stool Mix 1 Other: Voiding Method Bedpan Bedpan Bedpan Diaper Diaper Diaper External Catheter External Catheter External Catheter # Voids 1 # Bowel Movements 1 1 - Exam Pleasant obese 86-year-old female patient. Much more awake and alert. Currently on 5 L nasal cannula. HEENT examination is grossly unremarkable. Neck supple. Full range of motion. No adenopathy thyromegaly or neck vein distention. Cardiovascular examination reveals regular rhythm rate. S1-S2 normal. No S3 or S4. No discernible murmur noted. Heart sounds are distant. Heart rate 60 bpm. Lungs reveal mild scattered rhonchi. No wheezes or crackles. Breath sounds equal. She does not take deep breaths. Abdomen obese, with normal bowel sounds. No masses or tenderness. Extremities are intact. 1+ lower extremity edema. No cyanosis or clubbing. Skin is without rash or lesion. Neurologic examination is brief but nonfocal. The patient is much more awake and alert today. She is able to have a conversation. - Labs CBC & Chem 7: 07/31/21 06:34 07/31/21 06:34 Labs: Abnormal Lab Results - Last 24 Hours (Table) 07/31/21 07/31/21 Range/Units 06:34 06:34 WBC 16.6 H (3.8-10.6) k/uL RDW 16.2 H (11.5-15.5) % Neutrophils # 15.3 H (1.3-7.7) k/uL Lymphocytes # 0.8 L (1.0-4.8) k/uL Potassium 3.2 L (3.5-5.1) mmol/L Chloride 89 L (98-107) mmol/L Carbon Dioxide 38 H (22-30) mmol/L BUN 25 H (7-17) mg/dL Creatinine 1.13 H (0.52-1.04) mg/dL Glucose 126 H (74-99) mg/dL Magnesium 2.4 H (1.6-2.3) mg/dL Assessment and Plan Assessment: 1 Acute on chronic hypoxemic and hypercapnic respiratory failure, likely multifactorial, in part related to sleep apnea syndrome, obesity/hypoventilation syndrome, and possible underlying COPD from previous tobacco use. 2 Possible underlying secondary pulmonary hypertension. 3 History of atrial fibrillation. 4 History of ovarian cancer. 5 History of CVA. 6 History of hypertension. 7 History of pneumonia. 8 History of C. difficile colitis. 9 Morbid obesity. Plan: The patient was seen and evaluated today Much more awake and alert 5 L nasal cannula Continue to utilize BiPAP at night and during the day while napping Stable from the pulmonary standpoint Plan is to go to [facility] on the [place] post discharge I, the cosigning physician, performed a history & physical examination of the patient. Lungs sounds with mild scattered rhonchi. Maintaining O2 saturations in the 90s on 5 L/m per nasal. I discussed the assessment and plan of care with my nurse practitioner, Jihan Hannah. I attest to the above note as dictated by her.
--- NOTE | 2021-07-31 16:35 | PN ---
PROGRESS NOTE DATE OF SERVICE: 07/31/2021 This 86-year-old woman was admitted with multiple medical problems including acute generalized weakening and long Covid and acute hypoxic respiratory failure is being closely monitored. No chest pain. No palpitations. No fever. The patient is also on BiPAP at night. PHYSICAL EXAMINATION: Alert and oriented times three. Pulse 61, blood pressure 152/70, respiration 20, temperature 98.7, pulse ox 94% on 5 L. HEENT: Conjunctivae normal. Neck: No JVD. Cardiovascular: S1, S2 muffled. Respiration: Breath sounds diminished in the bases. Scattered rhonchi and crackles. Abdomen: Soft. Legs are no edema. No swelling. Nervous system: Diffusely weak. LAB STUDIES: WBC 16.2, sodium 130, potassium 3.2. ASSESSMENT: 1. Acute hypoxic hypercarbic respiratory failure possibly secondary to obesity hypoventilation syndrome and multifactorial. 2. Congestive heart failure acute exacerbation with acute on chronic diastolic dysfunction, ejection fraction 60%. 3. Bilateral lung lesions, possibly pulmonary fibrosis or after effects of acute Covid 19, bilateral pneumonia. 4. Diffuse generalized weakness and generalized deconditioning possibly secondary to long Covid. 5. Right lower extremity cellulitis. 6. Stage II sacral decubitus pressure ulcer present on admission. 7. Hyponatremia. 8. Possible superadded pneumonia. 9. Gait dysfunction. 10.History of atrial fibrillation. 11.History of recent prolonged Covid 19 infection. 12.History of cerebrovascular accident, transient ischemic attack. 13.Hypertension. 14.History of pneumonia. 15.History of chronic back pain. 16.History of ovarian cancer. 17.History of C difficile colitis. 18.History of degenerative joint disease and back pain. 19.History of depression. 20.Remote history of nicotine dependence. 21.Super morbid obesity with body mass index of 40.5. 22.FULL CODE. RECOMMENDATIONS AND DISCUSSION: Recommend to continue current medication, continue symptomatic treatment. Otherwise, at this time, I will recommend continue with current medications. Continue with BiPAP and PT/OT evaluation. Possible ECF rehab. Recommended continue the BiPAP at least at nighttime for the time being in the ECF. Further recommendations to follow. MMODL / IJN: [id number] /
[2021-07-31] MEDS: HYDROcodone/APAP 7.5-325MG 1 EACH TAB PO PRN (20:43)
--- NOTE | 2021-07-31 23:38 | PN ---
PROGRESS NOTE DATE OF SERVICE: 07/31/2021 REASON FOR FOLLOWUP: 1. Right lower extremity cellulitis. 2. Sacral pressure ulcer. INTERVAL HISTORY: Patient is afebrile. The patient is breathing comfortably. Patient denies having any chest pain or shortness of breath, cough, no abdominal pain or pain in the right lower extremity. PHYSICAL EXAMINATION: Blood pressure 142/80 with a pulse of 73, temperature 98.5. She is 93% on 5 L nasal cannula. General description is an elderly female lying in bed in no distress. Respiratory system: Unlabored breathing, decreased intensity in breath sounds, no wheeze. Heart S1, S2. Regular rate and rhythm. Abdomen soft, no tenderness. Right leg swelling and redness has decreased. Examination of sacral area did have overall healing of the pressure ulcer. LABS: Hemoglobin is 13.4, white count 16.6, creatinine 1.13. DIAGNOSTIC IMPRESSION AND PLAN: 1. Patient with acute right lower extremity cellulitis. This patient did have diffuse swelling and redness and has shown overall clinical improvement on cefazolin. Finish therapy with oral Keflex. 2. Patient sacral pressure ulcer, overall improvement with local cream. Keep the area dry and off the pressure. MMODL / IJN: [id number] /
[2021-08-01] MEDS: methylPREDNISolone SOD SUCCI 125 MG/2 ML VIAL IV SCH ×2 (01:58→05:36)
[2021-08-01 05:18] VITALS: TEMP 97.4
[2021-08-01 05:57] LABS: Anisocytosis Slight; Basophils % (A) 0 %; Eosinophils % (A) 0 %; HCT 42.1 % (34.0-46.0); HGB 13.1 gm/dL (11.4-16.0); Hypochromasia Slight; Lymphocytes # (A) 0.7 k/uL (1.0-4.8); Lymphocytes % (A) 4 %; MCH 29.4 pg (25.0-35.0); MCHC 31.1 g/dL (31.0-37.0); MCV 94.6 fL (80.0-100.0); Mean Platelet Volume 8.9; Monocytes # (A) 0.7 k/uL (0-1.0); Monocytes % (A) 3 %; Neutrophils # (A) 18.4 k/uL (1.3-7.7); Neutrophils % (A) 93 %; Platelet Count 221 k/uL (150-450); RBC 4.46 m/uL (3.80-5.40); RDW 16.2 % (11.5-15.5); WBC 19.9 k/uL (3.8-10.6)
[2021-08-01 07:18] LABS: Glucose,Whole Blood 115 mg/dL (75-99)
[2021-08-01] MEDS: IPRATROPIUM-ALBUTEROL 3 ML NEB INHALATION SCH ×2 (08:16→11:40)
[2021-08-01] MEDS: SYMBICORT 160-4.5 MCG INHALER INHALATION SCH (08:16)
[2021-08-01] MEDS: CHOLECALCIFEROL 25 MCG (1000 IU) TABLET PO SCH (08:54)
[2021-08-01] MEDS: METOPROLOL SUCCINATE (ER) 25 MG TAB.ER.24H PO SCH (08:54)
[2021-08-01] MEDS: ZINC SULFATE 220 MG CAP PO SCH (08:54)
[2021-08-01] MEDS: PREGABALIN 75 MG CAP PO SCH (08:54)
[2021-08-01] MEDS: APIXABAN 5 MG TAB PO SCH (08:55)
[2021-08-01] MEDS: ASCORBIC ACID 500 MG TAB PO SCH (08:55)
[2021-08-01] MEDS: CLOBETASOL PROP 0.05% OINT 15GM TOPICAL SCH (08:55)
[2021-08-01] MEDS: DULoxetine HCL 20 MG CAPSULE.DR PO SCH (08:55)
[2021-08-01] MEDS: CLINDAMYCIN PHOSP 1% TOPICAL SCH (08:55)
[2021-08-01] MEDS: ATORVASTATIN 40 MG TAB PO SCH (08:55)
[2021-08-01 08:58] VITALS: BP 163/79
[2021-08-01] MEDS ORDERED: acetaZOLAMIDE 250 MG TAB PO SCH (09:00)
[2021-08-01] MEDS ORDERED: FUROSEMIDE 40 MG TAB PO SCH (09:00)
--- NOTE | 2021-08-01 09:29 | P.DS ---
Providers Date of admission: 07/27/21 14:23 Expected date of discharge: 08/01/21 Attending physician: Anibal eFrrari Consults: 07/27/21 14:05 Consult Physician Stat Consulting Provider: Tamika Allen Consult Reason/Comments: Statsis ulcer/Weakness Do you want consulting provider notified?: Yes, Notify in am 07/28/21 16:47 Consult Physician Routine Consulting Provider: Kimberly Durant Consult Reason/Comments: chf Do you want consulting provider notified?: Yes Consult Physician Routine Consulting Provider: Luisa Fitzgerald Consult Reason/Comments: sob Do you want consulting provider notified?: Yes Primary care physician: Shira [facility] Course: Final diagnosis Acute hypoxic hypercarbic respiratory failure possibly secondary to obesity hypoventilation syndrome and multi factorial Congestive heart failure acute exacerbation with acute on chronic diastolic dysfunction, ejection fraction of 60% Bilateral lung lesions possibly pulmonary fibrosis or other effects of acute COVID-19, bilateral pneumonia Diffuse generalized weakness and generalized deconditioning possibly secondary to long Covid Right lower extremity cellulitis Stage II sacral decubitus pressure ulcer present on admission Hyponatremia History of cerebral vascular accident, TIA Mary dysfunction Possible super added pneumonia History of atrial fibrillation History of recent prolong COVID-19 infection Hypertension History of pneumonia History of chronic History of ovarian History of c. difficile colitis History of degenerative joint disease and back pain History of Depression History of nicotine dependence morbid obesity with a body mass index of 40.5 Full code Discharge disposition Patient is being discharged in a stable condition with guarded prognosis to [facility] for continued PT/OT therapy. Patient will follow-up with Dr. Li in the outpatient setting upon discharge. Patient is to continue with oral keflex 500mg twice daily for the next 10 days and then may discontinue. Patient will also continue with local wound care. Patient is to follow-up with pulmonary in the outpatient setting in 2-3 weeks. Recommend repeat labs for CBC and CMP in the outpatient setting. Total time taken is greater than 35 minutes. Hospital course This is an 86-year-old female who was recently admitted for multiple medical problems including acute hypoxic respiratory failure, long covid, and acute generalized weakness and admitted for further evaluation. Multiple medical consultations following including infectious disease, pulmonary, and cardiology. Patient will need outpatient follow-up in 2-3 weeks of these consultations.Patient maintained on cefazolin IV and will transition to oral keflex 500mg BID for the next ten days for cellulitis. Patient is to continue with local wound care and may jenny wrap bilateral lower extremities from toes up to knees to assist with edema and swelling. patient also with ulcer on the buttock and recommending continuing with barrier cream, foam and offloading of the site with frequent position changes at least q 2 hours. Patient to follow up with Dr. Allen outpatient for wounds. Patient continues on bipap at night and as needed with current settings mentioned below. Patient to continue with 02 nasal cannula support during the day and wean as tolerated. Patient currently with 5L via NC. Recommend to continue with head of the bed elevated 30-45 at all times and aspiration precautions. Dysphagia 3 chopped diet with supervision. Fluid restrictions of 1200ml daily. Patient is continued on diamox daily along with lasix 40 daily and will need follow up with cardiology outpatient. Patient will be discharged to [facility] on the [address] today. Currently no reports of chest pain, worsening shortness of breath, or palpitations. Patient is afebrile. No reports of nausea or vomiting and patient is tolerating diet. Guarded prognosis. On exam vital signs are stable. Cardio S1, S2 are muffled. Respiratory system shows diminished breath sounds at the bases with no wheezing and some scattered rhonchi noted. Abdomen is soft and obese, and nontender. Nervous system shows diffuse weakness. Please refer to medication reconciliation sheet for a list of medications. Patient Condition at Discharge: Stable Plan - Discharge Summary Discharge Rx Participant: No New Discharge Prescriptions: New Ipratropium-Albuterol Nebulize [Duoneb 0.5 mg-3 mg/3 ml Soln] 3 ml INHALATION RT-QID ml predniSONE 10 mg PO DIRECTED #30 tab Budesonide-Formot 160-4.5 Mcg [Symbicort 160-4.5 Mcg Inhaler] 2 puff INHALATION RT-BID gm acetaZOLAMIDE [Diamox] 250 mg PO DAILY tab Furosemide [Lasix] 40 mg PO DAILY tab Potassium Chloride [Potassium Chloride ER] 20 meq PO DAILY #60 tab Continue Atorvastatin [Lipitor] 40 mg PO DAILY DULoxetine HCL [Cymbalta] 20 mg PO DAILY Ipratropium-Albuterol Nebulize [Duoneb 0.5 mg-3 mg/3 ml Soln] 3 ml INHALATION RT-BID PRN PRN Reason: Shortness Of Breath Apixaban [Eliquis] 5 mg PO BID Fluticasone Nasal [place] [Flonase Nasal [place]] 1 spray EA NOSTRIL DAILY PRN PRN Reason: Allergy Symptoms Metoprolol Succinate [Toprol XL] 25 mg PO DAILY rOPINIRole HCL [Requip] 3 mg PO BID Ascorbic Acid [Vitamin C] 500 mg PO DAILY 30 Days #30 tab Cholecalciferol [Vitamin D3 (25 Mcg = 1000 Iu)] 25 mcg PO DAILY 30 Days #30 tablet HYDROcodone/APAP 7.5-325MG [[place] 7.5-325] 1 tab PO BID PRN #6 tab PRN Reason: Pain Triamcinolone 0.1% Ointment [Kenalog 0.1% Ointment] 1 applic TOPICAL DAILY Clobetasol 0.05% Solution 1 applic TOPICAL DAILY Clindamycin Phosp 1% Lotion 1 applic TOPICAL DAILY Acetaminophen Tab [Tylenol] 650 mg PO Q6HR PRN tab PRN Reason: Fever and/ or MILD Pain Albuterol Inhaler [Ventolin Hfa Inhaler] 2 puff INHALATION RT-QID PRN PRN Reason: Shortness Of Breath Pregabalin [Lyrica] 150 mg PO TID #6 cap Zinc Sulfate [Orazinc] 220 mg PO DAILY 14 Days #14 cap Cephalexin [Keflex] 500 mg PO Q12HR 10 Days #20 cap Discontinued Triamterene-Hctz 37.5-25Mg [Dyazide 37.5-25 Capsule] 1 cap PO DAILY Furosemide [Lasix] 20 mg PO DAILY Ibuprofen [Motrin] 600 mg PO Q12H PRN PRN Reason: Pain Discharge Medication List Atorvastatin [Lipitor] 40 mg PO DAILY 08/17/17 [History] DULoxetine HCL [Cymbalta] 20 mg PO DAILY 10/16/17 [History] Ipratropium-Albuterol Nebulize [Duoneb 0.5 mg-3 mg/3 ml Soln] 3 ml INHALATION RT-BID PRN 03/15/18 [History] Apixaban [Eliquis] 5 mg PO BID 12/12/19 [History] Fluticasone Nasal [place] [Flonase Nasal [place]] 1 spray EA NOSTRIL DAILY PRN 12/12/19 [History] Metoprolol Succinate [Toprol XL] 25 mg PO DAILY 12/12/19 [History] Clindamycin Phosp 1% Lotion 1 applic TOPICAL DAILY 06/15/21 [History] Clobetasol 0.05% Solution 1 applic TOPICAL DAILY 06/15/21 [History] Triamcinolone 0.1% Ointment [Kenalog 0.1% Ointment] 1 applic TOPICAL DAILY 06/15/21 [History] rOPINIRole HCL [Requip] 3 mg PO BID 06/15/21 [History] Acetaminophen Tab [Tylenol] 650 mg PO Q6HR PRN tab 06/24/21 [Rx] Ascorbic Acid [Vitamin C] 500 mg PO DAILY 30 Days #30 tab 06/24/21 [Rx] Cholecalciferol [Vitamin D3 (25 Mcg = 1000 Iu)] 25 mcg PO DAILY 30 Days #30 tablet 06/24/21 [Rx] Albuterol Inhaler [Ventolin Hfa Inhaler] 2 puff INHALATION RT-QID PRN 07/17/21 [History] Budesonide-Formot 160-4.5 Mcg [Symbicort 160-4.5 Mcg Inhaler] 2 puff INHALATION RT-BID gm 07/31/21 [Rx] Furosemide [Lasix] 40 mg PO DAILY tab 07/31/21 [Rx] HYDROcodone/APAP 7.5-325MG [[place] 7.5-325] 1 tab PO BID PRN #6 tab 07/31/21 [Rx] Ipratropium-Albuterol Nebulize [Duoneb 0.5 mg-3 mg/3 ml Soln] 3 ml INHALATION RT-QID ml 07/31/21 [Rx] Potassium Chloride [Potassium Chloride ER] 20 meq PO DAILY #60 tab 07/31/21 [Rx] Pregabalin [Lyrica] 150 mg PO TID #6 cap 07/31/21 [Rx] Zinc Sulfate [Orazinc] 220 mg PO DAILY 14 Days #14 cap 07/31/21 [Rx] acetaZOLAMIDE [Diamox] 250 mg PO DAILY tab 07/31/21 [Rx] predniSONE 10 mg PO DIRECTED #30 tab 07/31/21 [Rx] Cephalexin [Keflex] 500 mg PO Q12HR 10 Days #20 cap 08/01/21 [Rx] Follow up Appointment(s)/Referral(s): Salomón Watts MD [STAFF PHYSICIAN] - 2 Weeks Shira Ortega MD [Primary Care Provider] - 1-2 days Aj Bearden DO [Doctor of Osteopathic Medicine] - 1 Week Tamika Allen MD [STAFF PHYSICIAN] - 1 Week Ambulatory/Diagnostic Orders: Complete Blood Count w/diff [LAB.AMB] Time Frame: 2 Days, Location: None Selected Activity/Diet/Wound Care/Special Instructions: abx recommendations from DR. Allen for discharge Patient is going to [facility] on [address] activity as tolerated follow up with cardiology outpatient follow up with Dr. Allen outpatient Continue with Bipap at night with setting of rate 8, inspiratory pressure of 12, FI02 of 40 follow up with pulmonary outpatient continue with 02 supplementation during the day currently on 5L continue medications as prescribed continue consistent carb diet dysphagia 3 chopped dies and aspiration precautions with head of the bed elevated 30-45 degrees and supervision with meals continue with fluid restrictions of 1200ml daily follow up labs of cbc, bmp, mag in 2-3 days Discharge Disposition: TRANSFER TO SNF/ECF
[2021-08-01 09:40] LABS: African American GFR (CKD) 67.6 (60.0-200.0); Anion Gap 12.1 mmol/L (10.00-18.00); BUN/Creat Ratio 29.78 Ratio (12.00-20.00); Blood Urea Nitrogen 26.8 mg/dL (9.0-27.0); Calcium 9.1 mg/dL (8.7-10.3); Carbon Dioxide 35.9 mmol/L (20.0-27.5); Magnesium 2.8 mg/dL (1.5-2.4); Non-African American GFR(CKD) 58.3 (60.0-200.0); Potassium 3.3 mmol/L (3.5-5.5)
[2021-08-01 11:49] VITALS: PULSE 62
--- NOTE | 2021-08-01 12:38 | P.PN ---
Subjective Progress Note Date: 08/01/21 Principal diagnosis: Acute on chronic hypoxemic/hypercapnic respiratory failure 86-year-old female seen in room 528. The patient was initially seen in the emergency department, on 07/27/2021. She apparently presented there with weakness, and somnolence. She apparently had not been doing well for the 2 days prior to admission. She was unable to get out of bed. She was very lethargic. The patient apparently had significant confusion and disorientation. The patient does apparently have a history of chronic hypoxemic respiratory failure and chronic hypercapnic respiratory failure, and previously was on CPAP, but could not tolerate it. She does use home O2 between 4-5 L by nasal cannula. Currently, she is on 3 L. The patient's BMP was 1090 and the pro-calcitonin l evel was 0.07. The patient apparently used to see Dr. Benitez. She apparently has a history of atrial fibrillation, ovarian cancer, CVA, hypertension, pneumonia, and C. difficile colitis. White count 13.9, with a normal hemoglobin, hematocrit, and platelet count. D-dimer is 0.56. But gases from the first show a PaO2 of 62, pCO2 of 61, and a pH is 7.46. That was on an FiO2 of 44%. Sodium 139, potassium 3.2, chloride 86, CO2 44, anion gap 9, BUN 17, creatinine 0.99. Urine is clean. Testing for sanchez virus was negative. CT angiogram was negative for PE. There were bibasilar patchy infiltrates. Progress note dated 07/30/2021. 86-year-old female seen again in room 528. The patient is much more awake today than she was yesterday. We ordered BiPAP for her. Her settings included 12/5 and 40%. She is much more awake. I told her nurse, that the patient could be on nasal O2 during the daytime, and BiPAP at nighttime. We seen a nice reduction in her bicarbonate concentration on her electrolyte profile. Her daughter is very pleased. White count 16.1, hemoglobin 13.2, hematocrit 42.3, and platelet count normal. Sodium 141, potassium 3.2, chlorides 90, CO2 37, compared to 44 yesterday. Anion gap, BUN, and creatinine are all essentially normal. Chest x-ray show some bibasilar atelectasis, left greater than right. The patient is seen today 07/31/2021 in follow-up on the regular medical floor. She is currently sitting up in bed. Awake and alert. Family at the bedside. Currently maintaining O2 saturations in the 90s on 5 L/m per nasal cannula. She's been afebrile. Hemodynamically stable. White count 16.6. Hemoglobin 13.5. Leukocytes 0.8. Sodium 137. Potassium 3.2. Creatinine 1.13. Glucose 126. AST 30. ALT 10. She is continued on Symbicort, DuoNeb inhalations, IV site Medrol. Anticoagulated with Eliquis. Remains on antibiotics in the form of cefazolin. The patient is seen today 08/01/2021 in follow-up on the regular medical floor. She is currently resting in bed. Awake and alert in no acute distress. She is maintaining O2 saturations in the 90s on 4 L/m per nasal cannula. Currently off the BiPAP. Continue on Symbicort, DuoNeb inhalations, IV Solu-Medrol. Blood cultures revealed no growth. White count 19.9. Hemoglobin 13.1. Sodium 140. Potassium 3.3. Creatinine 0.9. Glucose 115. Objective - Vital Signs Vital signs: Vital Signs Temp 97.4 F L 08/01/21 04:35 Pulse 62 08/01/21 11:48 Resp 20 08/01/21 04:35 BP 163/79 08/01/21 08:57 Pulse Ox 94 L 08/01/21 04:35 Intake & Output 07/31/21 08/01/21 08/01/21 18:59 06:59 18:59 Intake Total 240 100 Output Total 1000 Balance -760 100 Weight 89.5 kg Intake: Oral 240 100 Output: Urine 1000 Other: Voiding Method Bedpan Bedpan Bedpan Diaper Diaper Diaper External Catheter # Voids 1 3 # Bowel Movements 1 1 - Exam Pleasant morbidly obese 86-year-old female patient. Much more awake and alert. Currently on 4 L nasal cannula. HEENT examination is grossly unremarkable. Neck supple. Full range of motion. No adenopathy thyromegaly or neck vein distention. Cardiovascular examination reveals regular rhythm rate. S1-S2 normal. No S3 or S4. No discernible murmur noted. Heart sounds are distant. Heart rate 60 bpm. Lungs reveal mild scattered rhonchi. No wheezes or crackles. Breath sounds equal. She does not take deep breaths. Abdomen obese, with normal bowel sounds. No masses or tenderness. Extremities are intact. 1+ lower extremity edema. No cyanosis or clubbing. Skin is without rash or lesion. Neurologic examination is brief but nonfocal. The patient is much more awake and alert today. She is able to have a conversation. - Labs CBC & Chem 7: 08/01/21 05:25 08/01/21 05:25 Labs: Abnormal Lab Results - Last 24 Hours (Table) 08/01/21 08/01/21 08/01/21 Range/Units 05:25 05:25 07:16 WBC 19.9 H (3.8-10.6) k/uL RDW 16.2 H (11.5-15.5) % Neutrophils # 18.4 H (1.3-7.7) k/uL Lymphocytes # 0.7 L (1.0-4.8) k/uL Potassium 3.3 L (3.5-5.5) mmol/L Chloride 92 L (96-109) mmol/L Carbon Dioxide 35.9 H (20.0-27.5) mmol/L Est GFR (CKD-EPI)NonAf 58.3 L (60.0-200.0) BUN/Creatinine Ratio 29.78 H (12.00-20.00) Ratio Glucose 115 H (70-110) mg/dL POC Glucose (mg/dL) 115 H (75-99) mg/dL Magnesium 2.8 H (1.5-2.4) mg/dL Microbiology - Last 24 Hours (Table) 07/30/21 15:42 Blood Culture - Preliminary Blood No Growth after 24 hours Assessment and Plan Assessment: 1 Acute on chronic hypoxemic and hypercapnic respiratory failure, likely multifactorial, in part related to sleep apnea syndrome, obesity/hypoventilation syndrome, and possible underlying COPD from previous tobacco use. 2 Possible underlying secondary pulmonary hypertension. 3 History of atrial fibrillation. 4 History of ovarian cancer. 5 History of CVA. 6 History of hypertension. 7 History of pneumonia. 8 History of C. difficile colitis. 9 Morbid obesity. Plan: The patient was seen and evaluated today Much more awake and alert 4 L nasal cannula Stable from the pulmonary standpoint Plan is to go to [facility] on the [address] today I, the cosigning physician, performed a history & physical examination of the patient. Lungs sounds with mild scattered rhonchi. Maintaining O2 saturations in the 90s on 4 L/m per nasal. I discussed the assessment and plan of care with my nurse practitioner, Jihan Hannah. I attest to the above note as dictated by her.
--- NOTE | 2021-08-01 14:33 | PN ---
PROGRESS NOTE DATE OF SERVICE: 08/01/2021. REASON FOR FOLLOWUP: 1. Right lower extremity. 2. Leukocytosis, most likely steroid effect. INTERVAL HISTORY: The patient is afebrile. The patient is breathing comfortably. The patient denies having any chest pain, shortness of breath or cough. No abdominal, no diarrhea. PHYSICAL EXAMINATION: Blood pressure 152/79 with a pulse of 80, temperature 98. General description is an elderly female lying in bed in no distress. Respiratory system: Unlabored breathing, decreased breath sounds at the base, no wheeze. Heart S1, S2. Regular rate and rhythm. Abdomen soft, no tenderness. Right leg swelling and redness has decreased. LABS: White count 19.9, creatinine 0.9. DIAGNOSTIC IMPRESSION AND PLAN: 1. Patient with right lower extremity cellulitis. Overall improvement on cefazolin. Finish therapy with oral Keflex. 2. Elevated white count, more likely steroid effect and should be monitored closely. MMODL / IJN: [id number] /
== END 2021-08-01 12:30 | DRG 291 ==
LOC: EC 10:58 → 5NMEDONC 14:23
PROVIDERS: ADMIT Hospitalist; ATTEND Hospitalist
PROC: 5A09457 Assistance with Respiratory Ventilation, 24-96 Consecutive Hours, Continuous Positive Airway Pressure (ICD-10-PCS; principal; 2021-07-29)
DX: I11.0 Hypertensive heart disease with heart failure (principal); J96.22 Acute and chronic respiratory failure with hypercapnia; I50.33 Acute on chronic diastolic (congestive) heart failure; J96.21 Acute and chronic respiratory failure with hypoxia; E87.2 Acidosis; E66.2 Morbid (severe) obesity with alveolar hypoventilation; E87.1 Hypo-osmolality and hyponatremia; I48.3 Typical atrial flutter; L03.115 Cellulitis of right lower limb; J98.11 Atelectasis; Z68.42 Body mass index [BMI] 45.0-49.9, adult; I27.20 Pulmonary hypertension, unspecified; L89.152 Pressure ulcer of sacral region, stage 2; J84.10 Pulmonary fibrosis, unspecified; I48.0 Paroxysmal atrial fibrillation; J44.9 Chronic obstructive pulmonary disease, unspecified; Z20.822 Contact with and (suspected) exposure to COVID-19; U09.9 Post COVID-19 condition, unspecified; F32.A Depression, unspecified; I35.0 Nonrheumatic aortic (valve) stenosis; E87.6 Hypokalemia; G47.33 Obstructive sleep apnea (adult) (pediatric); I87.2 Venous insufficiency (chronic) (peripheral); R32 Unspecified urinary incontinence; I44.0 Atrioventricular block, first degree; I45.10 Unspecified right bundle-branch block; G89.29 Other chronic pain; M54.9 Dorsalgia, unspecified; R26.9 Unspecified abnormalities of gait and mobility; M19.90 Unspecified osteoarthritis, unspecified site; H54.7 Unspecified visual loss; H91.90 Unspecified hearing loss, unspecified ear; Z68.36 Body mass index [BMI] 36.0-36.9, adult; Z79.01 Long term (current) use of anticoagulants; Z79.899 Other long term (current) drug therapy; Z87.891 Personal history of nicotine dependence; Z86.19 Personal history of other infectious and parasitic diseases; Z86.73 Personal history of transient ischemic attack (TIA), and cerebral infarction without residual deficits; Z87.01 Personal history of pneumonia (recurrent); Z90.710 Acquired absence of both cervix and uterus; Z85.43 Personal history of malignant neoplasm of ovary; Z98.890 Other specified postprocedural states; Z71.3 Dietary counseling and surveillance; Z88.0 Allergy status to penicillin; Z82.49 Family history of ischemic heart disease and other diseases of the circulatory system; Z82.0 Family history of epilepsy and other diseases of the nervous system
CPT/HCPCS: 36415; 36600; 71045; 71046; 71275; 80048; 80053; 81003; 82805; 83605; 83735; 83880; 84145; 84484; 85025; 85379; 85610; 85730; 87040; 87635; 93005; 93308; 94640; 94660; 94760; 99285

== ENCOUNTER 2021-08-21 13:54 | Observation (INO) | payer MEDICARE ==
--- NOTE | 2021-08-21 14:20 | ED ---
General Adult HPI - General Source: patient, EMS, RN notes reviewed Mode of arrival: EMS Limitations: altered mental status <Pantera Marroquin - Last Filed: 08/21/21 14:37> <Allen Perry - Last Filed: 08/21/21 16:38> - General Chief complaint: Altered Mental Status Stated complaint: AMS Time Seen by Provider: 08/21/21 14:10 - History of Present Illness Initial comments: Patient is a pleasant 86-year-old female presenting to emergency Department with concern for change in mental status. There was question of patient having a fall this morning. Patient does not recall having a fall. Patient reportedly was appropriate this morning. Later an appointment patient reportedly was confused. Patient states occasionally she gets that way but not very often. Patient states she feels fine at this time and does not have any complaints. Patient denies any potential injury. Patient states she has chronic leg weak ness and does not walk on her own. (Pantera Marroquin) - Related Data Home Medications Medication Instructions Recorded Confirmed Atorvastatin [Lipitor] 40 mg PO HS@209908/17/17 08/21/21 DULoxetine HCL [Cymbalta] 20 mg PO HS@209910/16/17 08/21/21 Apixaban [Eliquis] 5 mg PO BID@0900,209912/12/19 08/21/21 Fluticasone Nasal [place] [Flonase 1 spray EA NOSTRIL DAILY PRN 12/12/19 08/21/21 Nasal [place]] Metoprolol Succinate [Toprol XL] 25 mg PO DAILY@0900 12/12/19 08/21/21 Triamcinolone 0.1% Ointment 1 applic TOPICAL Q12H 06/15/21 08/21/21 [Kenalog 0.1% Ointment] rOPINIRole HCL [Requip] 3 mg PO BID@0900,209906/15/21 08/21/21 Albuterol Inhaler [Ventolin Hfa 2 puff INHALATION RT-QID PRN 07/17/21 08/21/21 Inhaler] Ascorbic Acid [Vitamin C] 500 mg PO HS@209908/21/21 08/21/21 Budesonide-Formot 160-4.5 Mcg 2 puff INHALATION RT-BID@0900,209908/21/21 08/21/21 [Symbicort 160-4.5 Mcg Inhaler] Cholecalciferol [Vitamin D3 (25 25 mcg PO DAILY@0900 08/21/21 08/21/21 Mcg = 1000 Iu)] Clindamycin Phosphate [Cleocin T] 1 applicate TOPICAL Q12H 08/21/21 08/21/21 Clobetasol Prop [place] 0.05% 1 applic TOPICAL Q12H 08/21/21 08/21/21 Coccyx-Z Guard 1 applic TOPICAL Q12H 08/21/21 08/21/21 Furosemide [Lasix] 40 mg PO DAILY@0600 08/21/21 08/21/21 Health Eyes/Lutien 1 tab PO DAILY@0900 08/21/21 08/21/21 Ipratropium-Albuterol Nebulize 3 ml INHALATION RT-QID 08/21/21 08/21/21 [Duoneb 0.5 mg-3 mg/3 ml Soln] Magnesium Hydroxide [Milk of 2,400 mg PO DAILY PRN 08/21/21 08/21/21 Magnesia] Potassium Chloride ER [K-Dur 20] 20 meq PO DAILY@0900 08/21/21 08/21/21 Pregabalin [Lyrica] 150 mg PO TID@0600,1400,2200 08/21/21 08/21/21 acetaZOLAMIDE [Diamox] 250 mg PO DAILY@0900 08/21/21 08/21/21 Previous Rx's Medication Instructions Recorded Acetaminophen Tab [Tylenol] 650 mg PO Q6HR PRN tab 06/24/21 HYDROcodone/APAP 7.5-325MG [[place] 1 tab PO BID PRN #6 tab 08/02/21 7.5-325] Allergies Allergy/AdvReac Type Severity Reaction Status Date / Time Penicillins Allergy Swelling/it Verified 08/21/21 14:32 lolis Review of Systems ROS Other: All systems not noted in ROS Statement are negative. Constitutional: Denies: fever Eyes: Denies: eye pain ENT: Denies: ear pain Respiratory: Denies: cough Cardiovascular: Denies: chest pain Endocrine: Denies: fatigue Gastrointestinal: Denies: abdominal pain Genitourinary: Denies: dysuria Musculoskeletal: Denies: back pain Skin: Denies: rash Neurological: Denies: headache <Pantera Marroquin - Last Filed: 08/21/21 14:37> ROS Other: All systems not noted in ROS Statement are negative. <VickyAllen Pastora - Last Filed: 08/21/21 16:38> ROS Statement: Those systems with pertinent positive or pertinent negative responses have been documented in the HPI. Past Medical History Past Medical History: Atrial Fibrillation, Cancer, CVA/TIA, Hypertension, P neumonia Additional Past Medical History / Comment(s): chronic back pain, ovarian cancer History of Any Multi-Drug Resistant Organisms: C-DIFF Date of last positivie culture/infection: stool MDRO Source:: 1998 Past Surgical History: Back Surgery, Hernia Repair, Hysterectomy Additional Past Surgical History / Comment(s): jero knee,brain tumor removed, exp lap Past Anesthesia/Blood Transfusion Reactions: No Reported Reaction Past Psychological History: Depression Smoking Status: Former smoker - Past Family History Father Family Medical History: Myocardial Infarction (PR) Mother Additional Family Medical History / Comment(s): parkinson's Sister(s) Family Medical History: Cancer <LopezPantera - Last Filed: 08/21/21 14:37> General Exam Limitations: altered mental status General appearance: alert, in no apparent distress Head exam: Present: atraumatic, normocephalic Eye exam: Present: normal appearance, PERRL, EOMI Neck exam: Present: normal inspection. Absent: tenderness, meningismus Respiratory exam: Present: normal lung sounds bilaterally Cardiovascular Exam: Present: bradycardia GI/Abdominal exam: Present: soft. Absent: tenderness Extremities exam: Present: normal inspection, full ROM. Absent: tenderness Neurological exam: Present: alert, oriented X3, CN II-XII intact Expanded Motor strength exam: RUE: 5, LUE: 5, RLE: 3 (Patient states chronic), LLE: 3 (Patient states chronic) Eye Response: (4) open spontaneously Motor Response: (6) obeys commands Verbal Response: (5) oriented Psychiatric exam: Present: normal affect, normal mood Skin exam: Present: normal color <Pantera Marroquin - Last Filed: 08/21/21 14:37> Course Vital Signs 08/21/21 13:57 Temperature 98.1 F Pulse Rate 56 L Respiratory 18 Rate Blood Pressure 113/95 O2 Sat by Pulse 95 Oximetry EKG Findings - EKG Comments: EKG Findings:: Sinus bradycardia with a rate of 54. For screening AV block FL of 306. QRS 166. QT 514. QTC 47. Left axis. Right bundle branch block. No acute ST change. <Pantera Marroquin - Last Filed: 08/21/21 14:37> Medical Decision Making - Lab Data Result diagrams: 08/21/21 14:44 08/21/21 14:44 <Allen Perry - Last Filed: 08/21/21 16:38> - Medical Decision Making Patient is sent out to me by. Shift physician, Dr. Marroquin. Briefly, patient is 86-year-old female presents to the emergency department from [facility]. She is brought to the emergency department for chief complaint of altered mental status. Patient is described to have somnolence and lethargy. She does not have any evidence of focal neurologic deficits. Parents and also follow-up with pending labs and pending imaging studies. Patient seen and evaluated bedside at approximate 4:00 PM. Patient's daughter named Isamar was at the bedside. Isamar reports that patient has been having symptoms of lethargy and confusion over the last 24-48 hours. Daughter reports that at baseline patient is very sharp able to identify family members and important dates quickly. Over the last 48 hours she has been showing some lethargy and difficulties. She's also been seemingly more weak. 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 She was evaluated by multiple services including pulmonology, cardiology and infectious disease. Laboratory evaluation obtained. Patient has pancytopenia with leukopenia 2.7, hemoglobin 11.2 complex 1:30. Coag panel is unremarkable. 2 blood gas shows pH of 7.34 with pO2 46 pCO2 of 67. Metabolic panel shows elevated bicarb consistent with metabolic compensation. Troponin is elevated 0.041. Patient at the bedside states she feels well patient denies any pain or shortness of breath. She is well-appearing. She is unable to answer questions that daughter reports she normally does. Computed tomography scan of the brain shows no acute processes. Chest x-ray increased bilateral opacities suspicious for scarring and/or atelectasis. Difficult to identify infiltrate. Pending urine studies and blood cultures. Patient placed on 5 L nasal cannula with 95% O2. There is an ABG that showed a pH of 7.34 and pCO2 of 67 and pO2 46. This ABG was discussed with respiratory therapy states that patient had a venous sample that was run as a arterial blood gas. Patient is normal oxygenation not showing signs of respiratory distress. At this point no clear indication to repeat arterial blood gas. (Allen Perry) - Lab Data Lab Results 08/21/21 08/21/21 08/21/21 Range/Units 14:44 14:44 14:44 WBC 2.7 L (3.8-10.6) k/uL RBC 3.74 L (3.80-5.40) m/uL Hgb 11.2 L D (11.4-16.0) gm/dL Hct 36.5 (34.0-46.0) % MCV 97.6 (80.0-100.0) fL MCH 30.0 (25.0-35.0) pg MCHC 30.7 L (31.0-37.0) g/dL RDW 17.5 H (11.5-15.5) % Plt Count 130 L (150-450) k/uL MPV 9.3 Neutrophils % (Manual) 55 % Lymphocytes % (Manual) 28 % Monocytes % (Manual) 10 % Eosinophils % (Manual) 7 % Neutrophils # (Manual) 1.49 (1.3-7.7) k/uL Lymphocytes # (Manual) 0.76 L (1.0-4.8) k/uL Monocytes # (Manual) 0.27 (0-1.0) k/uL Eosinophils # (Manual) 0.19 (0-0.7) k/uL Nucleated RBCs 0 (0-0) /100 WBC Manual Slide Review Performed Hypochromasia Moderate Anisocytosis Slight Macrocytosis Slight PT 10.4 (9.0-12.0) sec INR 0.9 (<1.2) APTT 27.4 (22.0-30.0) sec ABG pH (7.35-7.45) ABG pCO2 (35-45) mmHg ABG pO2 (83-108) mmHg ABG HCO3 (21-25) mmol/L ABG O2 Saturation (94-97) % ABG Base Excess mmol/L Sodium 140 (137-145) mmol/L Potassium 3.3 L (3.5-5.1) mmol/L Chloride 100 (98-107) mmol/L Carbon Dioxide 35 H (22-30) mmol/L Anion Gap 5 mmol/L BUN 19 H (7-17) mg/dL Creatinine 0.80 (0.52-1.04) mg/dL Est GFR (CKD-EPI)AfAm 78 (>60 ml/min/1.73 sqM) Est GFR (CKD-EPI)NonAf 68 (>60 ml/min/1.73 sqM) Glucose 89 (74-99) mg/dL Calcium 8.8 (8.4-10.2) mg/dL Total Bilirubin 0.7 (0.2-1.3) mg/dL AST 23 (14-36) U/L ALT 13 (4-34) U/L Alkaline Phosphatase 78 (38-126) U/L Troponin I (0.000-0.034) ng/mL Total Protein 5.7 L (6.3-8.2) g/dL Albumin 3.2 L (3.5-5.0) g/dL 08/21/21 08/21/21 Range/Units 14:44 14:44 WBC (3.8-10.6) k/uL RBC (3.80-5.40) m/uL Hgb (11.4-16.0) gm/dL Hct (34.0-46.0) % MCV (80.0-100.0) fL MCH (25.0-35.0) pg MCHC (31.0-37.0) g/dL RDW (11.5-15.5) % Plt Count (150-450) k/uL MPV Neutrophils % (Manual) % Lymphocytes % (Manual) % Monocytes % (Manual) % Eosinophils % (Manual) % Neutrophils # (Manual) (1.3-7.7) k/uL Lymphocytes # (Manual) (1.0-4.8) k/uL Monocytes # (Manual) (0-1.0) k/uL Eosinophils # (Manual) (0-0.7) k/uL Nucleated RBCs (0-0) /100 WBC Manual Slide Review Hypochromasia Anisocytosis Macrocytosis PT (9.0-12.0) sec INR (<1.2) APTT (22.0-30.0) sec ABG pH 7.34 L (7.35-7.45) ABG pCO2 67 H (35-45) mmHg ABG pO2 46 L* (83-108) mmHg ABG HCO3 35 H (21-25) mmol/L ABG O2 Saturation 86.3 L (94-97) % ABG Base Excess 8.3 mmol/L Sodium (137-145) mmol/L Potassium (3.5-5.1) mmol/L Chloride (98-107) mmol/L Carbon Dioxide (22-30) mmol/L Anion Gap mmol/L BUN (7-17) mg/dL Creatinine (0.52-1.04) mg/dL Est GFR (CKD-EPI)AfAm (>60 ml/min/1.73 sqM) Est GFR (CKD-EPI)NonAf (>60 ml/min/1.73 sqM) Glucose (74-99) mg/dL Calcium (8.4-10.2) mg/dL Total Bilirubin (0.2-1.3) mg/dL AST (14-36) U/L ALT (4-34) U/L Alkaline Phosphatase (38-126) U/L Troponin I 0.041 H* (0.000-0.034) ng/mL Total Protein (6.3-8.2) g/dL Albumin (3.5-5.0) g/dL Disposition <Pantera Marroquin - Last Filed: 08/21/21 14:37> <Allen Perry - Last Filed: 08/21/21 16:38> Clinical Impression: Lethargy, Hypercarbia Disposition: ADMITTED IP TO THIS HOSP Condition: Fair Referrals: Shira Ortega MD [Primary Care Provider] - 1-2 days
[2021-08-21 15:02] LABS: Albumin 3.2 g/dL (3.5-5.0); Calcium 8.8 mg/dL (8.4-10.2); Potassium 3.3 mmol/L (3.5-5.1); Total Bilirubin 0.7 mg/dL (0.2-1.3); Total Protein 5.7 g/dL (6.3-8.2)
[2021-08-21 15:18] LABS: INR 0.9 (<1.2); Partial Thromboplastin Time 27.4 sec (22.0-30.0); Prothrombin Time 10.4 sec (9.0-12.0)
--- NOTE | 2021-08-21 15:23 | CT ---
EXAMINATION TYPE: CT brain wo con DATE OF EXAM: 08/21/2021 COMPARISON: 08/18/2018 HISTORY: Altered mental status, recent fall. CT DLP: 1186.[address] of the brain was performed. The ventricles, basal cisterns and sulci overlying the cerebral convexities demonstrate mild enlargem ent. Postoperative changes left cerebellum. There is no evidence for intracranial hemorrhage or sulcal effacement. There is decreased attenuation about the periventricular white matter and deep white matter of both c erebral hemispheres, compatible with chronic small vessel ischemia. Differential diagnosis does inclu de demyelination. No mass effects are seen.No midline shift. Craniotomy left cerebellar region. If symptoms persist consider MRI. IMPRESSION: 1. Age related atrophic and chronic small vessel ischemic change without acute intracranial process s een at this time.
[2021-08-21 15:29] LABS: Anisocytosis Slight; HCT 36.5 % (34.0-46.0); Hypochromasia Moderate; MCHC 30.7 g/dL (31.0-37.0); MCV 97.6 fL (80.0-100.0); Macrocytosis Slight; Mean Platelet Volume 9.3; Platelet Count 130 k/uL (150-450); RBC 3.74 m/uL (3.80-5.40); RDW 17.5 % (11.5-15.5); WBC 2.7 k/uL (3.8-10.6)
[2021-08-21 15:34] LABS: HGB 11.2 gm/dL (11.4-16.0)
--- NOTE | 2021-08-21 15:41 | XR ---
EXAMINATION TYPE: XR chest 2V DATE OF EXAM: 08/21/2021 COMPARISON: Chest x-ray August 02, 2021 and older studies. CTA chest July 28, 2021. HISTORY: Altered mental status and weakness. TECHNIQUE: Frontal and lateral views of the chest are obtained. FINDINGS: There is persistent bilateral increased opacities consistent with probably scarring and/or atelectasis and low lung volumes redemonstrated. Areas of acute infiltrate difficult to exclude on background chronic change. Suboptimal study due to large body habitus. Stable cardiomegaly. Some cent ral vascular congestion and mild interstitial edema may be present. Spinal stimulator device in the m id to lower thoracic spinal canal redemonstrated. There is atherosclerotic and ectatic thoracic aorta causing right-sided tracheal deviation again seen. No layering pleural effusions noted. IMPRESSION: As above.
[2021-08-21 16:20] LABS: Eosinophils # (M) 0.19 k/uL (0-0.7); Lymphocytes # (M) 0.76 k/uL (1.0-4.8); Monocytes # (M) 0.27 k/uL (0-1.0); Neutrophils # (M) 1.49 k/uL (1.3-7.7); Neutrophils % (M) 55 %; Nucleated Red Blood Cells 0 /100 WBC (0-0); Total Cells Counted 100
[2021-08-21] MEDS ORDERED: ASPIRIN 81 MG PO STA (16:33)
[2021-08-21] MEDS ORDERED: ACETAMINOPHEN TAB 325 MG TAB PO PRN (21:34)
[2021-08-21] MEDS ORDERED: ALBUTEROL NEBULIZED 2.5 MG/3 ML INHALATION PRN (21:34)
[2021-08-21] MEDS ORDERED: POTASSIUM CHLORIDE ER 20 MEQ TAB.ER PO STA (21:35)
[2021-08-21 22:09] LABS: Allen Test Performed? Yes
[2021-08-21 22:24] LABS: ABG Base Excess 10.1 mmol/L; ABG HCO3 36 mmol/L (21-25); ABG Oxygen Saturation 99.6 % (94-97); ABG PH 7.31 (7.35-7.45); ABG PO2 150 mmHg (83-108); ABG TCO2 39 mmol/L (19-24)
[2021-08-21 22:29] LABS: ABG PCO2 72 mmHg (35-45)
[2021-08-22] MEDS: FUROSEMIDE 40 MG TAB PO SCH (06:31)
[2021-08-22] MEDS: IPRATROPIUM-ALBUTEROL 3 ML NEB INHALATION SCH ×4 (07:49→20:29)
[2021-08-22] MEDS: SYMBICORT 160-4.5 MCG INHALER INHALATION SCH ×2 (07:49→20:29)
[2021-08-22] MEDS: acetaZOLAMIDE 250 MG TAB PO SCH (09:36)
[2021-08-22] MEDS: CHOLECALCIFEROL 25 MCG (1000 IU) TABLET PO SCH (09:36)
[2021-08-22] MEDS: METOPROLOL SUCCINATE (ER) 25 MG TAB.ER.24H PO SCH (09:36)
[2021-08-22] MEDS: APIXABAN 5 MG TAB PO SCH ×2 (09:36→20:20)
[2021-08-22 11:23] LABS: African American GFR (CKD) >90 (>60 ml/min/1.73 sqM); Anion Gap 4 mmol/L; Blood Urea Nitrogen 18 mg/dL (7-17); Carbon Dioxide 30 mmol/L (22-30); Chloride 104 mmol/L (98-107); Glucose 84 mg/dL (74-99); Non-African American GFR(CKD) 78 (>60 ml/min/1.73 sqM); Potassium 3.9 mmol/L (3.5-5.1); Sodium 138 mmol/L (137-145)
--- NOTE | 2021-08-22 12:41 | P.CRDCN ---
History of Present Illness Consult date: 08/22/21 History of present illness: HISTORY OF PRESENT ILLNESS: This is a 86-year-old female with a past medical history significant for paroxysmal atrial fibrillation/typical atrial flutter, aortic stenosis, congestive heart failure, hypertension, and hyperlipidemia. Patient follows in the office with Dr. Watts. We have been asked to see the patient in consultation for elevated troponin. Patient examined at the bedside. Patient was brought to the hospital from an ECF secondary to a fall and altered mental status. Patient denies any chest pain or pressure. She denies any shortness of breath. She appears comfortable. She is working with [employer] at the time of my examination and appears to be very weak. EKG reveals sinus bradycardia with first-degree AV block. Right bundle branch block. Left anterior fascicular block. Chest xray persistent bilateral increased opacities consistent with probably scarring and/or atelectasis and low lung volumes redemonstrated. Areas of acute infiltrate difficult to exclude on background chronic changes. Stable cardiac megaly. Some central vascular congestion and mild interstitial edema may be present. Laboratory data: WBC 2.7. Hemoglobin 11.2. Platelet count 130. Sodium 140. Potassium 3.3. BUN 19. Creatinine 0.80. Troponin 0.041. 0.048. 0.047. Current home cardiac medications include Diamox 250 mg daily, metoprolol succinate 25 mg daily, Lasix 40 mg daily, Lipitor 40 mg daily, Eliquis 5 mg twice a day Most recent echocardiogram obtained in 07/29/2021 revealed ejection fraction 60- 65%, moderate aortic stenosis and mild mitral stenosis Cardiac catheterization history: 2010 revealing 30% proximal LAD stenosis, ejection fraction 65%, 2-3+ mitral regurgitation, and LVEDP 22. REVIEW OF SYSTEMS: At the time of my exam: CONSTITUTIONAL: Denies fever or chills. HEENT: Denies blurred vision, vision changes, or eye pain. Denies hemoptysis CARDIOVASCULAR: Denies chest pain. Denies orthopnea. Denies PND. Denies palpitations RESPIRATORY: Denies shortness of breath. GASTROINTESTINAL: Denies abdominal pain. Denies nausea or vomiting. HEMATOLOGIC: Denies bleeding disorders. GENITOURINARY: Denies any blood in urine. SKIN: Denies pruitis. Denies rash. PHYSICAL EXAM: VITAL SIGNS: Reviewed. GENERAL: Well-developed in no acute distress. HEENT: Head is normocephalic. Pupils are equal, round. Sclerae anicteric. Mucous membranes of the mouth are moist. Neck supple. No JVD or thyromegaly LUNGS: Respirations even and unlabored. Lungs diminished to auscultation bilaterally. HEART: Regular rate and rhythm. S1 and S2 heard. Systolic murmur noted. ABDOMEN: Soft. Nondistended. Nontender. EXTREMITIES: Normal range of motion. No clubbing or cyanosis. Peripheral pulses intact. Trace lower extremity edema NEUROLOGIC: Awake and alert. Oriented x 3. ASSESSMENT: Altered mental status Abnormal troponins, not suggestive of acute coronary syndrome Paroxysmal atrial fibrillation Paroxysmal typical atrial flutter Aortic stenosis Chronic congestive heart failure, diastolic Hypertension Hyperlipidemia PLAN: An acute coronary event has been ruled out Obtain 2D echo to assess cardiac structure and function Continue home cardiac medications Continue anticoagulation with Eliquis Further recommendations pending patient course Nurse practitioner note has been reviewed by physician. Signing provider agrees with the documented findings, assessment, and plan of care. Past Medical History Past Medical History: Atrial Fibrillation, Cancer, CVA/TIA, Hypertension, Pneumonia Additional Past Medical History / Comment(s): chronic back pain, ovarian cancer History of Any Multi-Drug Resistant Organisms: C-DIFF Date of last positivie culture/infection: stool MDRO Source:: 1998 Past Surgical History: Back Surgery, Hernia Repair, Hysterectomy Additional Past Surgical History / Comment(s): jero knee,brain tumor removed, exp lap Past Anesthesia/Blood Transfusion Reactions: No Reported Reaction Past Psychological History: Depression Smoking Status: Former smoker Past Alcohol Use History: Rare Past Drug Use History: None Reported - Past Family History Father Family Medical History: Myocardial Infarction (OR) Mother Additional Family Medical History / Comment(s): parkinson's Sister(s) Family Medical History: Cancer Medications and Allergies Home Medications Medication Instructions Recorded Confirmed Type Atorvastatin [Lipitor] 40 mg PO HS@209908/17/17 08/21/21 History DULoxetine HCL [Cymbalta] 20 mg PO HS@209910/16/17 08/21/21 History Apixaban [Eliquis] 5 mg PO BID@0900,2100 12/12/19 08/21/21 History Fluticasone Nasal [place] [Flonase 1 spray EA NOSTRIL DAILY PRN 12/12/19 08/21/21 History Nasal [place]] Metoprolol Succinate [Toprol XL] 25 mg PO DAILY@0900 12/12/19 08/21/21 History Triamcinolone 0.1% Ointment 1 applic TOPICAL Q12H 06/15/21 08/21/21 History [Kenalog 0.1% Ointment] rOPINIRole HCL [Requip] 3 mg PO BID@0900,209906/15/21 08/21/21 History Acetaminophen Tab [Tylenol] 650 mg PO Q6HR PRN tab 06/24/21 08/21/21 Rx Albuterol Inhaler [Ventolin Hfa 2 puff INHALATION RT-QID PRN 07/17/21 08/21/21 History Inhaler] HYDROcodone/APAP 7.5-325MG [[place] 1 tab PO BID PRN #6 tab 08/02/21 08/21/21 Rx 7.5-325] Ascorbic Acid [Vitamin C] 500 mg PO HS@209908/21/21 08/21/21 History Budesonide-Formot 160-4.5 Mcg 2 puff INHALATION RT-BID@0900,209908/21/21 08/21/21 History [Symbicort 160-4.5 Mcg Inhaler] Cholecalciferol [Vitamin D3 (25 25 mcg PO DAILY@0908/21/21 08/21/21 History Mcg = 1000 Iu)] Clindamycin Phosphate [Cleocin T] 1 applicate TOPICAL Q12H 08/21/21 08/21/21 History Clobetasol Prop Keshia 0.05% 1 applic TOPICAL Q12H 08/21/21 08/21/21 History Coccyx-Z Guard 1 applic TOPICAL Q12H 08/21/21 08/21/21 History Furosemide [Lasix] 40 mg PO DAILY@0600 08/21/21 08/21/21 History Health Eyes/Lutien 1 tab PO DAILY@0908/21/21 08/21/21 History Ipratropium-Albuterol Nebulize 3 ml INHALATION RT-QID 08/21/21 08/21/21 History [Duoneb 0.5 mg-3 mg/3 ml Soln] Magnesium Hydroxide [Milk of 2,400 mg PO DAILY PRN 08/21/21 08/21/21 History Magnesia] Potassium Chloride ER [K-Dur 20] 20 meq PO DAILY@0900 08/21/21 08/21/21 History Pregabalin [Lyrica] 150 mg PO TID@0600,1400,2200 08/21/21 08/21/21 History acetaZOLAMIDE [Diamox] 250 mg PO DAILY@0900 08/21/21 08/21/21 History Allergies Allergy/AdvReac Type Severity Reaction Status Date / Time Penicillins Allergy Swelling/it Verified 08/21/21 14:32 lolis Physical Exam Vitals: Vital Signs Temp Pulse Pulse Resp BP BP Pulse Ox 08/22/21 11:39 60 08/22/21 11:26 65 08/22/21 11:10 63 16 115/67 95 08/22/21 08:06 80 08/22/21 08:00 97.8 F 69 16 103/50 99 08/22/21 07:50 80 08/22/21 04:00 98.0 F 50 L 18 108/55 100 08/22/21 03:27 55 L 18 08/22/21 00:12 97.8 F 55 L 18 110/62 97 08/21/21 20:27 52 L 19 118/53 97 08/21/21 16:44 97.1 F L 52 L 14 107/63 97 08/21/21 13:57 98.1 F 56 L 18 113/95 95 Intake and Output 08/21/21 08/22/21 08/22/21 22:59 06:59 14:59 Other: Voiding Method Bedpan Bedpan # Voids 1 1 # Bowel Movements 1 Weight 119.476 kg Results 08/21/21 14:44 08/22/21 10:25 Cardiac Enzymes 08/21/21 08/21/21 08/21/21 Range/Units 14:44 14:44 16:44 AST 23 (14-36) U/L Troponin I 0.041 H* 0.048 H* (0.000-0.034) ng/mL 08/21/21 Range/Units 19:27 AST (14-36) U/L Troponin I 0.047 H* (0.000-0.034) ng/mL Coagulation 08/21/21 Range/Units 14:44 PT 10.4 (9.0-12.0) sec APTT 27.4 (22.0-30.0) sec CBC 08/21/21 Range/Units 14:44 WBC 2.7 L (3.8-10.6) k/uL RBC 3.74 L (3.80-5.40) m/uL Hgb 11.2 L D (11.4-16.0) gm/dL Hct 36.5 (34.0-46.0) % Plt Count 130 L (150-450) k/uL Comprehensive Metabolic Panel 08/21/21 08/22/21 Range/Units 14:44 10:25 Sodium 140 138 (137-145) mmol/L Potassium 3.3 L 3.9 (3.5-5.1) mmol/L Chloride 100 104 (98-107) mmol/L Carbon Dioxide 35 H 30 (22-30) mmol/L BUN 19 H 18 H (7-17) mg/dL Creatinine 0.80 0.71 (0.52-1.04) mg/dL Glucose 89 84 (74-99) mg/dL Calcium 8.8 9.0 (8.4-10.2) mg/dL AST 23 (14-36) U/L ALT 13 (4-34) U/L Alkaline Phosphatase 78 (38-126) U/L Total Protein 5.7 L (6.3-8.2) g/dL Albumin 3.2 L (3.5-5.0) g/dL Current Medications Generic Name Dose Route Start Last Admin Trade Name Freq PRN Reason Stop Dose Admin Acetaminophen 650 mg 08/21/21 21:34 Acetaminophen Tab 325 Mg Tab PO Q6HR PRN Fever and/ or MILD Pain Acetazolamide 250 mg 08/22/21 09:00 08/22/21 09:36 Acetazolamide 250 Mg Tab PO 250 mg DAILY@0900 RONY Administration Albuterol Sulfate 2.5 mg 08/21/21 21:34 Albuterol Nebulized 2.5 Mg/3 Ml INHALATION RT-QID PRN Shortness Of Breath Albuterol/Ipratropium 3 ml 08/22/21 08:00 08/22/21 11:26 Ipratropium-Albuterol 3 Ml Neb INHALATION 3 ml RT-QID RONY Administration Apixaban 5 mg 08/22/21 09:00 08/22/21 09:36 Apixaban 5 Mg Tab PO 5 mg BID@0900,2099 [facility] Administration Protocol Ascorbic Acid 500 mg 08/22/21 21:00 Ascorbic Acid 500 Mg Tab PO HS@2100 [facility] Atorvastatin Calcium 40 mg 08/22/21 21:00 Atorvastatin 40 Mg Tab PO HS@2100 [facility] Budesonide/Formoterol Fumarate 2 puff 08/22/21 09:00 08/22/21 07:49 Symbicort 160-4.5 Mcg Inhaler INHALATION 2 puff RT-BID@899,2099 [facility] Administration Cholecalciferol 25 mcg 08/22/21 09:00 08/22/21 09:36 Cholecalciferol 25 Mcg (1000 Iu) Tablet PO 25 mcg DAILY@0900 [facility] Administration Duloxetine HCl 20 mg 08/22/21 21:00 Duloxetine Hcl 20 Mg Capsule. PO HS@2099 [facility] Furosemide 40 mg 08/22/21 06:00 08/22/21 06:31 Furosemide 40 Mg Tab PO 40 mg DAILY@0600 [facility] Administration Metoprolol Succinate 25 mg 08/22/21 09:00 08/22/21 09:36 Metoprolol Succinate (Er) 25 Mg Tab.Er.24h PO 25 mg DAILY@0900 [facility] Administration Ropinirole HCl 3 mg 08/22/21 09:00 08/22/21 09:36 Ropinirole Hcl 1 Mg Tab PO 3 mg BID@899,2099 [facility] Administration Intake and Output 08/21/21 08/22/21 08/22/21 22:59 06:59 14:59 Other: Voiding Method Bedpan Bedpan # Voids 1 1 # Bowel Movements 1 Weight 119.476 kg 08/21/21 14:44 08/22/21 10:25
[2021-08-22 13:08] LABS: Anisocytosis Slight; Basophils % (A) 0 %; Eosinophils # (A) 0.2 k/uL (0-0.7); Eosinophils % (A) 5 %; HCT 36.4 % (34.0-46.0); HGB 11.8 gm/dL (11.4-16.0); Hypochromasia Moderate; Lymphocytes # (A) 0.8 k/uL (1.0-4.8); Lymphocytes % (A) 24 %; MCH 31.5 pg (25.0-35.0); MCHC 32.4 g/dL (31.0-37.0); MCV 97.1 fL (80.0-100.0); Macrocytosis Slight; Mean Platelet Volume 10.3; Monocytes # (A) 0.2 k/uL (0-1.0); Monocytes % (A) 6 %; Neutrophils % (A) 62 %; Platelet Count 101 k/uL (150-450); RBC 3.75 m/uL (3.80-5.40); RDW 17.6 % (11.5-15.5); WBC 3.2 k/uL (3.8-10.6)
--- NOTE | 2021-08-22 14:56 | P.CNPUL ---
History of Present Illness Consult date: 08/22/21 Requesting physician: Allen Perry Reason for consult: other Chief complaint: Altered mental status History of present illness: 86-year-old white female patient who is a poor historian, has a prior history of CVA/TIA, chronic A. fib, hypertension, COPD, on home oxygen 1999 and she normally wears 5 L of oxygen on a regular basis, sleep apnea, valvular heart disease with moderately severe aortic stenosis, patient had a recent hospitalization with acute exacerbation of CHF with diastolic dysfunction, and acute on chronic hypoxic and hypercapnic respiratory failure. Patient has recent history of COVID-19 infection, repeat blood testing has been negative. On 08/21/2021 patient was brought to the hospital by EMS. Patient apparently had alteration of her mental status, she suffered a fall at home. Patient does not recall having a fall, she does not remember what brought her to the h ospital, she was confused. Patient states she has chronic leg weakness and was having trouble walking on her own. Brain CT was completed showing age-related atrophic and chronic small vessel ischemic changes without sputum intracranial process. Blood gas was obtained showing pCO2 of 67, and pH of 7.34 and a pO2 of only 46. Bipap was applied at 12 and 6 and FiO2 of 60%. Subsequently her mentation has improved. His labs have been reviewed, her white blood cell count is 2.7, hemoglobin of 11.2, platelet count was 1:30, INR 0.9, sodium is 140, potassium 3.3, chloride is 100, she was just 35, BUN is 19, creatinine 0.80, patient had mildly elevated troponins of 0.041, 0.048, 0.047. ProBNP was 924, COVID-19 was tested and she was negative. She states she has been coughing, and at times she is able to bring up some phlegm, she denied any fever or chills. She states she resides at home with her 90-year-old who is also having health issues of his own and gets around worse than her. However on today's exam she is up in the chair, she is on 5 L of oxygen, she is breathing comfor tably, and not having any acute distress. Review of Systems ROS unobtainable: due to mental status All systems: negative Constitutional: Denies chills, Denies fever Eyes: denies blurred vision, denies pain Ears, nose, mouth and throat: Denies headache, Denies sore throat Cardiovascular: Denies chest pain, Denies shortness of breath Respiratory: Reports cough, Reports cough with sputum, Reports dyspnea, Reports home oxygen, Reports respiratory infections, Reports sleep apnea Gastrointestinal: Denies abdominal pain, Denies diarrhea, Denies nausea, Denies vomiting Genitourinary: Denies dysuria, Denies hematuria Musculoskeletal: Denies myalgias Integumentary: Denies pruritus, Denies rash Neurological: Reports change in mentation, Denies numbness, Denies weakness Psychiatric: Denies anxiety, Denies depression Endocrine: Denies fatigue, Denies weight change Past Medical History Past Medical History: Atrial Fibrillation, Cancer, CVA/TIA, Hypertension, Pneumonia Additional Past Medical History / Comment(s): chronic back pain, ovarian cancer History of Any Multi-Drug Resistant Organisms: C-DIFF Date of last positivie culture/infection: stool MDRO Source:: 1998 Past Surgical History: Back Surgery, Hernia Repair, Hysterectomy Additional Past Surgical History / Comment(s): jero knee,brain tumor removed, exp lap Past Anesthesia/Blood Transfusion Reactions: No Reported Reaction Past Psychological History: Depression Smoking Status: Former smoker Past Alcohol Use History: Rare Past Drug Use History: None Reported - Past Family History Father Family Medical History: Myocardial Infarction ([place]) Mother Additional Family Medical History / Comment(s): parkinson's Sister(s) Family Medical History: Cancer Medications and Allergies Home Medications Medication Instructions Recorded Confirmed Type Atorvastatin [Lipitor] 40 mg PO HS@209908/17/17 08/21/21 History DULoxetine HCL [Cymbalta] 20 mg PO HS@209910/16/17 08/21/21 History Apixaban [Eliquis] 5 mg PO BID@0900,2100 12/12/19 08/21/21 History Fluticasone Nasal [place] [Flonase 1 spray EA NOSTRIL DAILY PRN 12/12/19 08/21/21 History Nasal [place]] Metoprolol Succinate [Toprol XL] 25 mg PO DAILY@0900 12/12/19 08/21/21 History Triamcinolone 0.1% Ointment 1 applic TOPICAL Q12H 06/15/21 08/21/21 History [Kenalog 0.1% Ointment] rOPINIRole HCL [Requip] 3 mg PO BID@0900,2100 06/15/21 08/21/21 History Acetaminophen Tab [Tylenol] 650 mg PO Q6HR PRN tab 06/24/21 08/21/21 Rx Albuterol Inhaler [Ventolin Hfa 2 puff INHALATION RT-QID PRN 07/17/21 08/21/21 History Inhaler] HYDROcodone/APAP 7.5-325MG [[place] 1 tab PO BID PRN #6 tab 08/02/21 08/21/21 Rx 7.5-325] Ascorbic Acid [Vitamin C] 500 mg PO HS@209908/21/21 08/21/21 History Budesonide-Formot 160-4.5 Mcg 2 puff INHALATION RT-BID@899,209908/21/21 08/21/21 History [Symbicort 160-4.5 Mcg Inhaler] Cholecalciferol [Vitamin D3 (25 25 mcg PO DAILY@89908/21/21 08/21/21 History Mcg = 1000 Iu)] Clindamycin Phosphate [Cleocin T] 1 applicate TOPICAL Q12H 08/21/21 08/21/21 History Clobetasol Prop Keshia 0.05% 1 applic TOPICAL Q12H 08/21/21 08/21/21 History Coccyx-Z Guard 1 applic TOPICAL Q12H 08/21/21 08/21/21 History Furosemide [Lasix] 40 mg PO DAILY@0600 08/21/21 08/21/21 History Health Eyes/Lutien 1 tab PO DAILY@89908/21/21 08/21/21 History Ipratropium-Albuterol Nebulize 3 ml INHALATION RT-QID 08/21/21 08/21/21 History [Duoneb 0.5 mg-3 mg/3 ml Soln] Magnesium Hydroxide [Milk of 2,400 mg PO DAILY PRN 08/21/21 08/21/21 History Magnesia] Potassium Chloride ER [K-Dur 20] 20 meq PO DAILY@0900 08/21/21 08/21/21 History Pregabalin [Lyrica] 150 mg PO TID@0600,1400,2200 08/21/21 08/21/21 History acetaZOLAMIDE [Diamox] 250 mg PO DAILY@0900 08/21/21 08/21/21 History Allergies Allergy/AdvReac Type Severity Reaction Status Date / Time Penicillins Allergy Swelling/it Verified 08/21/21 14:32 lolis Physical Exam Vitals: Vital Signs Temp Pulse Pulse Resp BP BP Pulse Ox 08/22/21 11:39 60 08/22/21 11:26 65 08/22/21 11:10 63 16 115/67 95 08/22/21 08:06 80 08/22/21 08:00 97.8 F 69 16 103/50 99 08/22/21 07:50 80 08/22/21 04:00 98.0 F 50 L 18 108/55 100 08/22/21 03:27 55 L 18 08/22/21 00:12 97.8 F 55 L 18 110/62 97 08/21/21 20:27 52 L 19 118/53 97 08/21/21 16:44 97.1 F L 52 L 14 107/63 97 Intake and Output 08/21/21 08/22/21 08/22/21 22:59 06:59 14:59 Intake Total 240 Balance 240 Intake: Oral 240 Other: Voiding Method Bedpan Bedpan # Voids 1 1 # Bowel Movements 1 Weight 119.476 kg GENERAL EXAM: Alert, pleasant, 86-year-old white female, sitting up in the recliner, 5 L of oxygen, breathing comfortably, patient is a unreliable historian comfortable in no apparent distress. HEAD: Normocephalic/atraumatic. EYES: Normal reaction of pupils, equal size. Conjunctiva pink, sclera white. NOSE: Clear with pink turbinates. THROAT: No erythema or exudates. NECK: No masses, no JVD, no thyroid enlargement, no adenopathy. CHEST: No chest wall deformity. Symmetrical expansion. LUNGS: Equal air entry with minimal crackles at bilateral bases CVS: Regular rate and rhythm, normal S1 and S2, no gallops, systolic murmur, no rubs ABDOMEN: Soft, nontender. No hepatosplenomegaly, normal bowel sounds, no guarding or rigidity. EXTREMITIES: No clubbing, no edema, no cyanosis, 2+ pulses and upper and lower extremities. MUSCULOSKELETAL: Muscle strength and tone normal. SPINE: No scoliosis or deformity SKIN: No rashes CENTRAL NERVOUS SYSTEM: Alert and oriented -3. No focal deficits, tone is normal in all 4 extremities. PSYCHIATRIC: Alert and oriented -3. Appropriate affect. Intact judgment and insight. Results - Laboratory Findings CBC and BMP: 08/22/21 10:32 08/22/21 10:25 ABG ABG pH 7.31 (7.35-7.45) L 08/21/21 22:20 ABG pCO2 72 mmHg (35-45) H* 08/21/21 22:20 ABG pO2 150 mmHg (83-108) H 08/21/21 22:20 ABG O2 Saturation 99.6 % (94-97) H 08/21/21 22:20 PT/INR, D-dimer PT 10.4 sec (9.0-12.0) 08/21/21 14:44 INR 0.9 (<1.2) 08/21/21 14:44 Abnormal lab findings: Abnormal Labs 08/21/21 08/21/21 08/21/21 14:44 14:44 14:44 WBC 2.7 L RBC 3.74 L Hgb 11.2 L D MCHC 30.7 L RDW 17.5 H Plt Count 130 L Lymphocytes # Lymphocytes # (Manual) 0.76 L ABG pH ABG pCO2 ABG pO2 ABG HCO3 ABG Total CO2 ABG O2 Saturation Potassium 3.3 L Carbon Dioxide 35 H BUN 19 H Troponin I 0.041 H* Total Protein 5.7 L Albumin 3.2 L 08/21/21 08/21/21 08/21/21 14:44 16:44 19:27 WBC RBC Hgb MCHC RDW Plt Count Lymphocytes # Lymphocytes # (Manual) ABG pH 7.34 L ABG pCO2 67 H ABG pO2 46 L* ABG HCO3 35 H ABG Total CO2 ABG O2 Saturation 86.3 L Potassium Carbon Dioxide BUN Troponin I 0.048 H* 0.047 H* Total Protein Albumin 08/21/21 08/22/21 08/22/21 22:20 10:25 10:32 WBC 3.2 L RBC 3.75 L Hgb MCHC RDW 17.6 H Plt Count 101 L Lymphocytes # 0.8 L Lymphocytes # (Manual) ABG pH 7.31 L ABG pCO2 72 H* ABG pO2 150 H ABG HCO3 36 H ABG Total CO2 39 H ABG O2 Saturation 99.6 H Potassium Carbon Dioxide BUN 18 H Troponin I Total Protein Albumin - Diagnostic Findings Chest x-ray: report reviewed, image reviewed Additional studies: Brain CT results, EKG reviewed Assessment and Plan Plan: Assessment: #1. Acute on chronic hypoxic and hypercapnic respiratory failure, likely related to mild exacerbation of COPD, recent COVID-19 infection, and history of chronic CHF. Repeat COVID-19 testing was negative #2. Altered mental status related to the above, improved with BiPAP support #3. Elevated troponins, please refer to cardiology consultation #4. Recent hospitalization for CHF exacerbation with diastolic dysfunction #5. Recent history of prolonged COVID-19, and patient has been on 5 L of oxygen lately #6. History of COPD on home oxygen use to wear 3 L, currently up to 5 #7. Obstructive sleep apnea #8. Former smoker #9. Hypertension #10. Chronic A. fib #11. Plan: Patient is awake and alert, breathing comfortably Continue nebulized bronchodilators Continue BiPAP support at bedtime and as needed No need for steroids Continue home dose Lasix ProBNP level was noted, not significantly elevated, proctostomy level will be sent Clinically patient does not appear to be in any acute distress Echocardiogram is ordered and is pending at this time She has no acute complaints She has been generally weak since her COVID-19 infection Will need physical therapy evaluation We'll continue to follow her clinical course I performed a history & physical examination of the patient and discussed their management with my nurse practitioner, Tootie Ortega. I reviewed the nurse practitioner's note and agree with the documented findings and plan of care. Lung sounds are positive for dim breath sounds throughout the lung person. The findings and the impression was discussed with the patient. I attest to the documentation by the nurse practitioner. Time with Patient: Greater than 30
--- NOTE | 2021-08-22 17:50 | ECHOF ---
Referral Reason:LV function, abnormal troponins, aortic stenosis MEASUREMENTS -------- HEIGHT: 157.5 cm WEIGHT: 119.3 kg BP: 108/55 IVSd: 1.6 cm (0.6 - 1.1) LVIDd: 4.4 cm (3.9 - 5.3) LVPWd: 1.6 cm (0.6 - 1.1) EDV(Teich): 87 ml IVSs: 2.2 cm LVIDs: 3.5 cm LVPWs: 2.2 cm %IVS Thck: 38 % ESV(Teich): 50 ml EF(Teich): 42 % %FS: 21 % SV(Teich): 37 ml LVOT Diam: 2.2 cm LA Diam: 4.0 cm (2.7 - 3.8) RVIDd: 3.2 cm (< 3.3) Ao Diam: 3.4 cm (2.0 - 3.7) AV Cusp: 0.8 cm (1.5 - 2.6) EPSS: 0.5 cm MV E Ari: 0.88 m/s MV DecT: 432 ms MV Dec Mclean: 2.0 m/s MV A Ari: 1.08 m/s MV E/A Ratio: 0.82 MV PHT: 125 ms LVOT Vmax: 0.93 m/s LVOT maxP.47 mmHg AV Vmax: 2.76 m/s AV maxP.55 mmHg JANELLE Vmax, Pt: 1.3 cm AV Vmax: 2.79 m/s AV Vmean: 1.78 m/s AV maxP.08 mmHg AV meanP.02 mmHg AV Env.Ti: 323 ms AV VTI: 57.5 cm JANELLE Vmax, Pt: 1.3 cm TR Vmax: 2.34 m/s TR maxP.84 mmHg RAP: 5.00 mmHg RVSP: 26.84 mmHg MV EF SLOPE: 14.11 mm/s (70 - 150) MV EXCURSION: 11.32 mm (> 18.000) FINDINGS -------- Resting bradycardia (HR<60bpm). This was a technically adequate study. The left ventricular size is normal. There is moderate concentric left ventricular hypertrophy. O verall left ventricular systolic function is normal with, an EF between 65 - 70 %. The right ventricle is normal in size. The left atrium is mildly dilated. The right atrium is normal in size. There is moderate aortic valve sclerosis. There is no evidence of aortic stenosis. Peak/mean grad ient across the Aortic Valve is 31.08mmHg / 15.02mmHg. Mild mitral annular calcification present. Mild mitral regurgitation is present. Mild tricuspid regurgitation present. Right ventricular systolic pressure is normal at < 35 mmHg. Trace/mild (physiologic) pulmonic regurgitation. The aortic root size is normal. IVC Not well visulized. There is no pericardial effusion. CONCLUSIONS -------- 1. The left ventricular size is normal. 2. There is moderate concentric left ventricular hypertrophy. 3. Overall left ventricular systolic function is normal with, an EF between 65 - 70 %. 4. The left atrium is mildly dilated. 5. There is moderate aortic valve sclerosis. 6. There is no evidence of aortic stenosis. 7. Peak/mean gradient across the Aortic Valve is 31.08mmHg / 15.02mmHg. 8. Mild mitral annular calcification present. 9. Mild mitral regurgitation is present. 10. Mild tricuspid regurgitation present. 11. Trace/mild (physiologic) pulmonic regurgitation. 12. There is no pericardial effusion. SUPERVISOR PHOSPHATIC FERTILIZER: Rosalia Bang RDCS
[2021-08-22 20:19] VITALS: RESP 18
--- NOTE | 2021-08-22 20:58 | P.HPIM ---
History of Present Illness H&P Date: 08/22/21 Chief Complaint: fall Patient is a 86-year-old female with a known history of paroxysmal atrial fibrillation, chronic hypoxic respiratory failure on 5 L oxygen and BiPAP at [facility], obesity hypoventilation syndrome and chronic CHF with diastolic dysfunction, morbid obesity and other multiple medical problems including recent COVID-19 infection was [facility] to hospital [facility] due to complaints of altered mental status and fall. Apparently patient had a fall in the morning as per halfway staff. Patient otherwise does not remember anything in could not provide any history. Denied any complaints of pain. Patient is currently bedridden due to chronic leg weakness and mild obesity. Patient does not have any fever or chills. No complaints of chest pain. Patient was placed on BiPAP overnight. Chest x-ray showed there is persistent bilateral increased opacities consistent with probably scarring and atelectasis and low lung volumes. CT head showed age-related atrophic and chronic [place] small ischemic changes without acute intracranial process. EKG showed sinus bradycardia with first-degree AV block. 2D echocardiogram showed ejection fraction 65 to 70%. Moderate aortic sclerosis. No stenosis. Right ventricular systolic pressure is normal less than 35 mmHg. Laboratory data showed WBC 2.7 hemoglobin 11.2 platelets 130 ABG showed pH 7.34 PCO2 67 PO2 46 on admission Sodium 140 potassium 3.3 chloride 100 bicarb is 35 BUN 19 and creatinine 0.8 and Troponin level 0.041, 0.048 and 0.047 Albumin 3.2 Coronavirus PCR not detected. Review of Systems Complete review of systems could not be obtained from the patient at this time. ROS unobtainable: due to mental status Past Medical History Past Medical History: Atrial Fibrillation, Cancer, CVA/TIA, Hypertension, Pneumonia Additional Past Medical History / Comment(s): chronic back pain, ovarian cancer History of Any Multi-Drug Resistant Organisms: C-DIFF Date of last positivie culture/infection: stool MDRO Source:: 1998 Past Surgical History: Back Surgery, Hernia Repair, Hysterectomy Additional Past Surgical History / Comment(s): ejro knee,brain tumor removed, exp lap Past Anesthesia/Blood Transfusion Reactions: No Reported Reaction Past Psychological History: Depression Smoking Status: Former smoker Past Alcohol Use History: Rare Past Drug Use History: None Reported - Past Family History Father Family Medical History: Myocardial Infarction ([place]) Mother Additional Family Medical History / Comment(s): parkinson's Sister(s) Family Medical History: Cancer Medications and Allergies Home Medications Medication Instructions Recorded Confirmed Type Atorvastatin [Lipitor] 40 mg PO HS@209908/17/17 08/21/21 History DULoxetine HCL [Cymbalta] 20 mg PO HS@209910/16/17 08/21/21 History Apixaban [Eliquis] 5 mg PO BID@0900,209912/12/19 08/21/21 History Fluticasone Nasal [place] [Flonase 1 spray EA NOSTRIL DAILY PRN 12/12/19 08/21/21 History Nasal [place]] Metoprolol Succinate [Toprol XL] 25 mg PO DAILY@0900 12/12/19 08/21/21 History Triamcinolone 0.1% Ointment 1 applic TOPICAL Q12H 06/15/21 08/21/21 History [Kenalog 0.1% Ointment] rOPINIRole HCL [Requip] 3 mg PO BID@899,209906/15/21 08/21/21 History Acetaminophen Tab [Tylenol] 650 mg PO Q6HR PRN tab 06/24/21 08/21/21 Rx Albuterol Inhaler [Ventolin Hfa 2 puff INHALATION RT-QID PRN 07/17/21 08/21/21 History Inhaler] HYDROcodone/APAP 7.5-325MG [[place] 1 tab PO BID PRN #6 tab 08/02/21 08/21/21 Rx 7.5-325] Ascorbic Acid [Vitamin C] 500 mg PO HS@209908/21/21 08/21/21 History Budesonide-Formot 160-4.5 Mcg 2 puff INHALATION RT-BID@899,209908/21/21 08/21/21 History [Symbicort 160-4.5 Mcg Inhaler] Cholecalciferol [Vitamin D3 (25 25 mcg PO DAILY@89908/21/21 08/21/21 History Mcg = 1000 Iu)] Clindamycin Phosphate [Cleocin T] 1 applicate TOPICAL Q12H 08/21/21 08/21/21 History Clobetasol Prop [place] 0.05% 1 applic TOPICAL Q12H 08/21/21 08/21/21 History Coccyx-Z Guard 1 applic TOPICAL Q12H 08/21/21 08/21/21 History Furosemide [Lasix] 40 mg PO DAILY@0600 08/21/21 08/21/21 History Health Eyes/Lutien 1 tab PO DAILY@0900 08/21/21 08/21/21 History Ipratropium-Albuterol Nebulize 3 ml INHALATION RT-QID 08/21/21 08/21/21 History [Duoneb 0.5 mg-3 mg/3 ml Soln] Magnesium Hydroxide [Milk of 2,400 mg PO DAILY PRN 08/21/21 08/21/21 History Magnesia] Potassium Chloride ER [K-Dur 20] 20 meq PO DAILY@0900 08/21/21 08/21/21 History Pregabalin [Lyrica] 150 mg PO TID@0600,1400,2200 08/21/21 08/21/21 History acetaZOLAMIDE [Diamox] 250 mg PO DAILY@0900 08/21/21 08/21/21 History Allergies Allergy/AdvReac Type Severity Reaction Status Date / Time Penicillins Allergy Swelling/it Verified 08/21/21 14:32 lolis Physical Exam Vitals: Vital Signs Temp Pulse Pulse Resp BP BP Pulse Ox 08/22/21 08:06 80 08/22/21 07:50 80 08/22/21 04:00 98.0 F 50 L 18 108/55 100 08/22/21 03:27 55 L 18 08/22/21 00:12 97.8 F 55 L 18 110/62 97 08/21/21 20:27 52 L 19 118/53 97 08/21/21 16:44 97.1 F L 52 L 14 107/63 97 08/21/21 13:57 98.1 F 56 L 18 113/95 95 Intake and Output 08/21/21 08/22/21 08/22/21 22:59 06:59 14:59 Other: Voiding Method Bedpan # Voids 1 Weight 119.476 kg PHYSICAL EXAMINATION: Patient is lying in the bed comfortably, no acute distress, awake alert but confused. Morbidly obese. HEENT: Normocephalic. Neck is supple. Pupils reactive. Nostrils clear. Oral cavity is moist. Neck reveals no JVD, carotid bruits, or thyromegaly. CHEST EXAMINATION: Trachea is central. Symmetrical expansion. Bibasilar diminished sounds. Scattered rhonchi. Lung person clear to auscultation and percussion. CARDIAC: Normal S1, S2 with no gallops. No murmurs ABDOMEN: Soft. Bowel sounds normal. No organomegaly. No abdominal bruits. Extremities: Bilateral lower extremity 1+ edema. No clubbing or cyanosis Neurologically awake, alert, oriented x1 with well-coordinated movements. No focal deficits noted Skin: No rash or skin lesions. Psychiatric: Cooperative. Could not be assessed completely. Musculoskeletal: No joint swelling or deformity. Normal range of motion. Results CBC & Chem 7: 08/22/21 10:32 08/22/21 10:25 Labs: Abnormal Lab Results - Last 24 Hours (Table) 08/21/21 08/21/21 08/21/21 Range/Units 14:44 14:44 14:44 WBC 2.7 L (3.8-10.6) k/uL RBC 3.74 L (3.80-5.40) m/uL Hgb 11.2 L D (11.4-16.0) gm/dL MCHC 30.7 L (31.0-37.0) g/dL RDW 17.5 H (11.5-15.5) % Plt Count 130 L (150-450) k/uL Lymphocytes # (Manual) 0.76 L (1.0-4.8) k/uL ABG pH (7.35-7.45) ABG pCO2 (35-45) mmHg ABG pO2 (83-108) mmHg ABG HCO3 (21-25) mmol/L ABG Total CO2 (19-24) mmol/L ABG O2 Saturation (94-97) % Potassium 3.3 L (3.5-5.1) mmol/L Carbon Dioxide 35 H (22-30) mmol/L BUN 19 H (7-17) mg/dL Troponin I 0.041 H* (0.000-0.034) ng/mL Total Protein 5.7 L (6.3-8.2) g/dL Albumin 3.2 L (3.5-5.0) g/dL 08/21/21 08/21/21 08/21/21 Range/Units 14:44 16:44 19:27 WBC (3.8-10.6) k/uL RBC (3.80-5.40) m/uL Hgb (11.4-16.0) gm/dL MCHC (31.0-37.0) g/dL RDW (11.5-15.5) % Plt Count (150-450) k/uL Lymphocytes # (Manual) (1.0-4.8) k/uL ABG pH 7.34 L (7.35-7.45) ABG pCO2 67 H (35-45) mmHg ABG pO2 46 L* (83-108) mmHg ABG HCO3 35 H (21-25) mmol/L ABG Total CO2 (19-24) mmol/L ABG O2 Saturation 86.3 L (94-97) % Potassium (3.5-5.1) mmol/L Carbon Dioxide (22-30) mmol/L BUN (7-17) mg/dL Troponin I 0.048 H* 0.047 H* (0.000-0.034) ng/mL Total Protein (6.3-8.2) g/dL Albumin (3.5-5.0) g/dL 08/21/21 Range/Units 22:20 WBC (3.8-10.6) k/uL RBC (3.80-5.40) m/uL Hgb (11.4-16.0) gm/dL MCHC (31.0-37.0) g/dL RDW (11.5-15.5) % Plt Count (150-450) k/uL Lymphocytes # (Manual) (1.0-4.8) k/uL ABG pH 7.31 L (7.35-7.45) ABG pCO2 72 H* (35-45) mmHg ABG pO2 150 H (83-108) mmHg ABG HCO3 36 H (21-25) mmol/L ABG Total CO2 39 H (19-24) mmol/L ABG O2 Saturation 99.6 H (94-97) % Potassium (3.5-5.1) mmol/L Carbon Dioxide (22-30) mmol/L BUN (7-17) mg/dL Troponin I (0.000-0.034) ng/mL Total Protein (6.3-8.2) g/dL Albumin (3.5-5.0) g/dL Thrombosis Risk Factor Assmnt - DVT/VTE Prophylaxis DVT/VTE Prophylaxis: Pharmacologic Prophylaxis ordered - Choose All That Apply Each Factor Represents 1 point: Abnormal pulmonary function (COPD), Medical pt on bed rest, Obesity (BMI >25) Each Risk Factor Represents 3 Points: Age 75 years or older Thrombosis Risk Factor Assessment Total Risk Factor Score: 6 Thrombosis Risk Factor Assessment Level: High Risk Assessment and Plan Assessment: Acute on chronic hypoxic and hypercapnic respiratory failure secondary to obesity hypoventilation, COVID-19 infection recently and multifactorial. mild Acute on chronic CHF with diastolic dysfunction. Elevated troponin level possible demand ischemia. Chronic hypoxic respiratory failure secondary to pulmonary fibrosis, COPD and recent COVID-19 related changes. Recent history of COVID-19 pneumonia with prolonged hospital course requiring 5 L oxygen via nasal cannula. Obstructive sleep apnea Paroxysmal atrial fibrillation on anticoagulation with Eliquis Hypertension Hyperlipidemia DVT prophylaxis patient is already on full anticoagulation Stage II sacral decubitus pressure ulcer present on admission chronic back pain History of ovarian cancer History of c. difficile colitis History of degenerative joint disease and back pain History of Depression History of nicotine dependence morbid obesity with a body mass index of 48.2 History of cerebral vascular accident, TIA Plan: Patient will be continued on bronchodilators and continue with oxygen supplementation. BiPAP at bedtime.. Continue with Demadex. Currently mentation is at baseline. Cardiology and pulmonary is on board. Continue with PT OT and possible discharge back to extended-care facility. Prognosis is guarded at this time. Time with Patient: Greater than 30
[2021-08-22] MEDS ORDERED: ATORVASTATIN 40 MG TAB PO SCH (21:00)
[2021-08-22] MEDS ORDERED: MELATONIN 3 MG TABLET PO SCH (21:00)
[2021-08-22] MEDS ORDERED: ASCORBIC ACID 500 MG TAB PO SCH (21:00)
[2021-08-22] MEDS ORDERED: DULoxetine HCL 20 MG CAPSULE.DR PO SCH (21:00)
[2021-08-23] MEDS: FUROSEMIDE 40 MG TAB PO SCH (06:31)
[2021-08-23] MEDS: SYMBICORT 160-4.5 MCG INHALER INHALATION SCH (07:10)
[2021-08-23] MEDS: IPRATROPIUM-ALBUTEROL 3 ML NEB INHALATION SCH ×2 (07:10→11:39)
[2021-08-23 09:07] VITALS: TEMP 98
[2021-08-23] MEDS: APIXABAN 5 MG TAB PO SCH (09:07)
[2021-08-23] MEDS: METOPROLOL SUCCINATE (ER) 25 MG TAB.ER.24H PO SCH (09:07)
[2021-08-23] MEDS: CHOLECALCIFEROL 25 MCG (1000 IU) TABLET PO SCH (09:07)
[2021-08-23] MEDS: acetaZOLAMIDE 250 MG TAB PO SCH (09:07)
[2021-08-23 10:33] LABS: VBG PH 7.34 (7.31-7.41)
--- NOTE | 2021-08-23 12:30 | P.DS ---
Providers Date of admission: 08/21/21 16:43 Expected date of discharge: 08/23/21 Attending physician: Anibal Ferrari Consults: 08/21/21 16:33 Consult Physician Routine Consulting Provider: Aj Bearden Consult Reason/Comments: hypercarbia, obesity hypoventilation Do you want consulting provider notified?: Yes 08/21/21 17:34 Consult Physician Urgent Consulting Provider: Kendell Cintron Consult Reason/Comments: Elevated troponin Do you want consulting provider notified?: Yes Primary care physician: Shira Jordan Hospital Course: Final diagnosis Acute on chronic hypoxic and hypercapnic respiratory failure secondary to obesity hypoventilation, COVID-19 infection recently and multifactorial. mild Acute on chronic CHF with diastolic dysfunction. Elevated troponin level possible demand ischemia. Chronic hypoxic respiratory failure secondary to pulmonary fibrosis, COPD and recent COVID-19 related changes. Recent history of COVID-19 pneumonia with prolonged hospital course requiring 5 L oxygen via nasal cannula. Obstructive sleep apnea Paroxysmal atrial fibrillation on anticoagulation with Eliquis Hypertension Hyperlipidemia DVT prophylaxis patient is already on full anticoagulation Stage II sacral decubitus pressure ulcer present on admission chronic back pain History of ovarian cancer History of c. difficile colitis History of degenerative joint disease and back pain History of Depression History of nicotine dependence morbid obesity with a body mass index of 48.2 History of cerebral vascular accident, TIA Discharge disposition Patient is being discharged in a stable condition with guarded prognosis to [facility]. Patient will follow-up with Dr. Li in the outpatient setting upon discharge. Patient is to continue with 5 L of oxygen via nasal cannula at all times and continue with BiPAP with current settings at night and as needed. Total time taken is greater than 35 minutes. Hospital course This is an 86-year-old female who was recently admitted from [facility] due to increasing altered mental status along with fall and being closely monitored. Cardiology and pulmonary evaluated the patient and have cleared the patient for discharge back to the facility. Patient is to continue with 5 L via nasal cannula at all times and close monitoring as she does tend to remove her nasal cannula often. Patient will also require BiPAP with current settings at night and as needed. Patient continues to be weak and will continue with PT/OT therapy in the outpatient setting. Patient does have [place] and Lyrica as needed for her chronic back pain and if patient is lethargic or altered recommend holding narcotic or [employer] agents. Currently no reports of chest pain, worsening shortness of breath, or palpitations. Patient is afebrile. No reports of nausea or vomiting and patient is tolerating diet. Patient will be going to [facility] on the [place] today. Guarded prognosis and patient is high risk for readmissions. PHYSICAL EXAMINATION: Patient is sitting up in the chair comfortably, no acute distress, awake alert but pleasantly confused. Morbidly obese. Temp is 98F, pulse is 64, respirations are 18, blood pressure is 116/64, oxygen saturation is 95% on 5 L via nasal cannula HEENT: Normocephalic. Neck is supple. Pupils reactive. Nostrils clear. Oral cavity is moist. Neck reveals no JVD, carotid bruits, or thyromegaly. CHEST EXAMINATION: Trachea is central. Symmetrical expansion. Bibasilar diminished sounds. Scattered rhonchi. Lung person clear to auscultation and percussion. CARDIAC: Normal S1, S2 with no gallops. No murmurs ABDOMEN: Soft. Bowel sounds normal. No organomegaly. No abdominal bruits. Extremities: Bilateral lower extremity 1+ edema. No clubbing or cyanosis Neurologically awake, alert, oriented x1 with well-coordinated movements. No focal deficits noted Skin: No rash or skin lesions. Psychiatric: Cooperative. Could not be assessed completely. Musculoskeletal: No joint swelling or deformity. Normal range of motion. Please refer to medication reconciliation sheet for a list of medications. Patient Condition at Discharge: Fair Plan - Discharge Summary Discharge Rx Participant: No New Discharge Prescriptions: New Melatonin 3 mg PO HS tablet Continue Atorvastatin [Lipitor] 40 mg PO HS@2100 DULoxetine HCL [Cymbalta] 20 mg PO HS@2100 Apixaban [Eliquis] 5 mg PO BID@0900,2100 Fluticasone Nasal [place] [Flonase Nasal [place]] 1 spray EA NOSTRIL DAILY PRN PRN Reason: Allergy Symptoms Metoprolol Succinate [Toprol XL] 25 mg PO DAILY@0900 rOPINIRole HCL [Requip] 3 mg PO BID@0900,2100 Clindamycin Phosphate [Cleocin T] 1 applicate TOPICAL Q12H Coccyx-Z Guard 1 applic TOPICAL Q12H Clobetasol Prop Keshia 0.05% 1 applic TOPICAL Q12H Cholecalciferol [Vitamin D3 (25 Mcg = 1000 Iu)] 25 mcg PO DAILY@0900 Budesonide-Formot 160-4.5 Mcg [Symbicort 160-4.5 Mcg Inhaler] 2 puff INHALATION RT-BID@0900,2099 Ascorbic Acid [Vitamin C] 500 mg PO HS@2099 HYDROcodone/APAP 7.5-325MG [[place] 7.5-325] 1 tab PO BID PRN #6 tab PRN Reason: Pain Triamcinolone 0.1% Ointment [Kenalog 0.1% Ointment] 1 applic TOPICAL Q12H Acetaminophen Tab [Tylenol] 650 mg PO Q6HR PRN tab PRN Reason: Fever and/ or MILD Pain Albuterol Inhaler [Ventolin Hfa Inhaler] 2 puff INHALATION RT-QID PRN PRN Reason: Shortness Of Breath Magnesium Hydroxide [Milk of Magnesia] 2,400 mg PO DAILY PRN PRN Reason: Constipation Potassium Chloride ER [K-Dur 20] 20 meq PO DAILY@0900 acetaZOLAMIDE [Diamox] 250 mg PO DAILY@0900 Ipratropium-Albuterol Nebulize [Duoneb 0.5 mg-3 mg/3 ml Soln] 3 ml INHALATION RT-QID Health Eyes/Lutien 1 tab PO DAILY@0900 Furosemide [Lasix] 40 mg PO DAILY@0600 Changed Pregabalin [Lyrica] 150 mg PO TID@0600,1400,2200 #6 cap Discharge Medication List Atorvastatin [Lipitor] 40 mg PO HS@209908/17/17 [History] DULoxetine HCL [Cymbalta] 20 mg PO HS@209910/16/17 [History] Apixaban [Eliquis] 5 mg PO BID@0900,209912/12/19 [History] Fluticasone Nasal [place] [Flonase Nasal [place]] 1 spray EA NOSTRIL DAILY PRN 12/12/19 [History] Metoprolol Succinate [Toprol XL] 25 mg PO DAILY@0900 12/12/19 [History] Triamcinolone 0.1% Ointment [Kenalog 0.1% Ointment] 1 applic TOPICAL Q12H 06/15/21 [History] rOPINIRole HCL [Requip] 3 mg PO BID@0900,209906/15/21 [History] Acetaminophen Tab [Tylenol] 650 mg PO Q6HR PRN tab 06/24/21 [Rx] Albuterol Inhaler [Ventolin Hfa Inhaler] 2 puff INHALATION RT-QID PRN 07/17/21 [History] Ascorbic Acid [Vitamin C] 500 mg PO HS@209908/21/21 [History] Budesonide-Formot 160-4.5 Mcg [Symbicort 160-4.5 Mcg Inhaler] 2 puff INHALATION RT-BID@0900,209908/21/21 [History] Cholecalciferol [Vitamin D3 (25 Mcg = 1000 Iu)] 25 mcg PO DAILY@89908/21/21 [History] Clindamycin Phosphate [Cleocin T] 1 applicate TOPICAL Q12H 08/21/21 [History] Clobetasol Prop Keshia 0.05% 1 applic TOPICAL Q12H 08/21/21 [History] Coccyx-Z Guard 1 applic TOPICAL Q12H 08/21/21 [History] Furosemide [Lasix] 40 mg PO DAILY@0608/21/21 [History] Health Eyes/Lutien 1 tab PO DAILY@89908/21/21 [History] Ipratropium-Albuterol Nebulize [Duoneb 0.5 mg-3 mg/3 ml Soln] 3 ml INHALATION RT-QID 08/21/21 [History] Magnesium Hydroxide [Milk of Magnesia] 2,400 mg PO DAILY PRN 08/21/21 [History] Potassium Chloride ER [K-Dur 20] 20 meq PO DAILY@89908/21/21 [History] acetaZOLAMIDE [Diamox] 250 mg PO DAILY@89908/21/21 [History] HYDROcodone/APAP 7.5-325MG [[place] 7.5-325] 1 tab PO BID PRN #6 tab 08/23/21 [Rx] Melatonin 3 mg PO HS tablet 08/23/21 [Rx] Pregabalin [Lyrica] 150 mg PO TID@0600,1400,2200 #6 cap 08/23/21 [Rx] Follow up Appointment(s)/Referral(s): Shira Ortega MD [Primary Care Provider] - 1-2 days Activity/Diet/Wound Care/Special Instructions: [facility] Patient is to continue on 5 L via nasal cannula at all times and BiPAP at night with current settings Continue taking medications as prescribed Continue heart healthy diet Discharge Disposition: TRANSFER TO SNF/ECF
--- NOTE | 2021-08-23 12:58 | P.PN ---
Subjective Progress Note Date: 08/23/21 HISTORY OF PRESENT ILLNESS: This is a 86-year-old female with a past medical history significant for paroxysmal atrial fibrillation/typical atrial flutter, aortic stenosis, congestive heart failure, hypertension, and hyperlipidemia. Patient follows in the office with Dr. Watts. We have been asked to see the patient in consultation for elevated troponin. Patient examined at the bedside. Patient was brought to the hospital from an ECF secondary to a fall and altered mental stat us. Patient denies any chest pain or pressure. She denies any shortness of breath. She appears comfortable. She is working with [employer] at the time of my examination and appears to be very weak. EKG reveals sinus bradycardia with first-degree AV block. Right bundle branch block. Left anterior fascicular block. Chest xray persistent bilateral increased opacities consistent with probably scarring and/or atelectasis and low lung volumes redemonstrated. Areas of acute infiltrate difficult to exclude on background chronic changes. Stable cardiac megaly. Some central vascular congestion and mild interstitial edema may be present. Laboratory data: WBC 2.7. Hemoglobin 11.2. Platelet count 130. Sodium 140. Potassium 3.3. BUN 19. Creatinine 0.80. Troponin 0.041. 0.048. 0.047. Current home cardiac medications include Diamox 250 mg daily, metoprolol succinate 25 mg daily, Lasix 40 mg daily, Lipitor 40 mg daily, Eliquis 5 mg twice a day Most recent echocardiogram obtained in 07/29/2021 revealed ejection fraction 60- 65%, moderate aortic stenosis and mild mitral stenosis Cardiac catheterization history: 2010 revealing 30% proximal LAD stenosis, ejection fraction 65%, 2-3+ mitral regurgitation, and LVEDP 22. 08/23/2021 Patient examined this morning at the bedside. Patient denies chest pain or pressure. Denies short of breath. Echocardiogram completed revealing ejection fraction 65-70%. Vital signs are stable. PHYSICAL EXAM: VITAL SIGNS: Reviewed. GENERAL: Well-developed in no acute distress. HEENT: Head is normocephalic. Pupils are equal, round. Sclerae anicteric. Mucous membranes of the mouth are moist. Neck supple. No JVD or thyromegaly LUNGS: Respirations even and unlabored. Lungs diminished to auscultation b ilaterally. HEART: Regular rate and rhythm. S1 and S2 heard. Systolic murmur noted. EXTREMITIES: Normal range of motion. No clubbing or cyanosis. Peripheral pulses intact. Trace lower extremity edema ASSESSMENT: Altered mental status Abnormal troponins, not suggestive of acute coronary syndrome Paroxysmal atrial fibrillation Paroxysmal typical atrial flutter Aortic stenosis Chronic congestive heart failure, diastolic Hypertension Hyperlipidemia PLAN: Continue current cardiac medications No further inpatient recommendations from a cardiac standpoint We will sign off. Please reconsult if needed. Patient to follow up on an outpatient basis with Dr. Watts Nurse practitioner note has been reviewed by physician. Signing provider agrees with the documented findings, assessment, and plan of care. Objective - Vital Signs Vital signs: Vital Signs Temp 98 F 08/23/21 08:00 Pulse 70 08/23/21 11:50 Resp 18 08/23/21 08:00 BP 116/64 08/23/21 08:00 Pulse Ox 95 08/23/21 08:00 Intake & Output 08/22/21 08/23/21 08/23/21 18:59 06:59 18:59 Intake Total 900 1100 Balance 900 1100 Intake: Oral 900 1100 Other: Voiding Method Bedpan Bedpan # Voids 2 1 1 # Bowel Movements 1 - Labs CBC & Chem 7: 08/22/21 10:32 08/22/21 10:25 Labs: Abnormal Lab Results - Last 24 Hours (Table) 08/21/21 08/22/21 08/22/21 Range/Units 14:44 10:32 10:32 WBC 3.2 L (3.8-10.6) k/uL RBC 3.75 L (3.80-5.40) m/uL RDW 17.6 H (11.5-15.5) % Plt Count 101 L (150-450) k/uL Lymphocytes # 0.8 L (1.0-4.8) k/uL VBG pCO2 67 H (37-51) mmHg VBG HCO3 35 H (24-28) mmol/L Procalcitonin 0.23 H (0.02-0.09) ng/mL Microbiology - Last 24 Hours (Table) 08/21/21 16:50 Blood Culture - Preliminary Blood No Growth after 24 hours 08/21/21 16:46 Blood Culture - Preliminary Blood No Growth after 24 hours
[2021-08-23 13:36] VITALS: BP 120/66; PULSE 62
--- NOTE | 2021-08-23 15:51 | P.PN ---
Subjective Progress Note Date: 08/23/21 86-year-old white female patient who is a poor historian, has a prior history of CVA/TIA, chronic A. fib, hypertension, COPD, on home oxygen 1999 and she normally wears 5 L of oxygen on a regular basis, sleep apnea, valvular heart disease with moderately severe aortic stenosis, patient had a recent hospi talization with acute exacerbation of CHF with diastolic dysfunction, and acute on chronic hypoxic and hypercapnic respiratory failure. Patient has recent history of COVID-19 infection, repeat blood testing has been negative. On 08/21/2021 patient was brought to the hospital by EMS. Patient apparently had alteration of her mental status, she suffered a fall at home. Patient does not recall having a fall, she does not remember what brought her to the hospital, she was confused. Patient states she has chronic leg weakness and was having trouble walking on her own. Brain CT was completed showing age-related atrophic and chronic small vessel ischemic changes without sputum intracranial process. Blood gas was obtained showing pCO2 of 67, and pH of 7.34 and a pO2 of only 46. Bipap was applied at 12 and 6 and FiO2 of 60%. Subsequently her mentation has improved. His labs have been reviewed, her white blood cell count is 2.7, hemoglobin of 11.2, platelet count was 1:30, INR 0.9, sodium is 140, potassium 3.3, chloride is 100, she was just 35, BUN is 19, creatinine 0.80, patient had m ildly elevated troponins of 0.041, 0.048, 0.047. ProBNP was 924, COVID-19 was tested and she was negative. She states she has been coughing, and at times she is able to bring up some phlegm, she denied any fever or chills. She states she resides at home with her 90-year-old who is also having health issues of his own and gets around worse than her. However on today's exam she is up in the chair, she is on 5 L of oxygen, she is breathing comfortably, and not having any acute distress. The patient is seen today 08/23/2021 in follow-up on the selective care unit. She is currently sitting up in bed. Awake and alert in no acute distress. She is maintaining O2 saturations in the 90s on 5 L/m per nasal cannula. She's alternating with BiPAP 12/6 at 40% FiO2. Blood cultures reveal no growth. White count 3.2. Hemoglobin 11.8. Pro-calcitonin 0.23. She is continued on Symbicort, albuterol, DuoNeb inhalations. Anticoagulated with Eliquis. Remains on oral diuretics. Oral Diamox. Objective - Vital Signs Vital signs: Vital Signs Temp 98 F 08/23/21 08:00 Pulse 62 08/23/21 12:00 Resp 18 08/23/21 12:00 BP 120/66 08/23/21 12:00 Pulse Ox 95 08/23/21 12:00 Intake & Output 08/22/21 08/23/21 08/23/21 18:59 06:59 18:59 Intake Total 900 1100 240 Balance 900 1100 240 Intake: Oral 900 1100 240 Other: Voiding Method Bedpan Bedpan # Voids 2 1 1 # Bowel Movements 1 - Exam GENERAL EXAM: Alert, pleasant, 86-year-old female patient, sitting up in bed, 5 L of oxygen, breathing comfortably, patient is a unreliable historian, comfortable in no apparent distress. HEAD: Normocephalic/atraumatic. EYES: Normal reaction of pupils, equal size. Conjunctiva pink, sclera white. NOSE: Clear with pink turbinates. THROAT: No erythema or exudates. NECK: No masses, no JVD, no thyroid enlargement, no adenopathy. CHEST: No chest wall deformity. Symmetrical expansion. LUNGS: Equal air entry with minimal crackles at bilateral bases CVS: Regular rate and rhythm, normal S1 and S2, no gallops, systolic murmur, no rubs ABDOMEN: Soft, nontender. No hepatosplenomegaly, normal bowel sounds, no guarding or rigidity. EXTREMITIES: No clubbing, no edema, no cyanosis, 2+ pulses and upper and lower extremities. MUSCULOSKELETAL: Muscle strength and tone normal. SPINE: No scoliosis or deformity SKIN: No rashes CENTRAL NERVOUS SYSTEM: No focal deficits, tone is normal in all 4 extremities. PSYCHIATRIC: Alert and oriented -3. Appropriate affect. Intact judgment and insight. - Labs CBC & Chem 7: 08/22/21 10:32 08/22/21 10:25 Labs: Abnormal Lab Results - Last 24 Hours (Table) 08/21/21 08/22/21 Range/Units 14:44 10:32 VBG pCO2 67 H (37-51) mmHg VBG HCO3 35 H (24-28) mmol/L Procalcitonin 0.23 H (0.02-0.09) ng/mL Microbiology - Last 24 Hours (Table) 08/21/21 16:50 Blood Culture - Preliminary Blood No Growth after 24 hours 08/21/21 16:46 Blood Culture - Preliminary Blood No Growth after 24 hours Assessment and Plan Assessment: 1 Acute on chronic hypoxic and hypercapnic respiratory failure, likely related to mild exacerbation of COPD, recent COVID-19 infection, and history of chronic CHF. Repeat COVID-19 testing was negative 2 Altered mental status related to the above, improved with BiPAP support 3 Elevated troponins, please refer to cardiology consultation 4 Recent hospitalization for CHF exacerbation with diastolic dysfunction 5 Recent history of prolonged COVID-19, and patient has been on 5 L of oxygen lately 6 History of COPD on home oxygen use to wear 3 L, currently up to 5 7 Obstructive sleep apnea 8 Former smoker 9 Hypertension 10 Chronic A. fib Plan: The patient was seen and evaluated Stable from the pulmonary standpoint Remains on bronchodilators Remains on diuretics To ECF once cleared by medicine I, the cosigning physician, performed a history & physical examination of the patient. Lungs sounds minimal crackles in the posterior bases. Maintaining good O2 saturations in the 90s on 5 L/m per nasal cannula. I discussed the assessment and plan of care with my nurse practitioner, Jihan Hannah. I attest to the above note as dictated by her.
== END 2021-08-23 16:09 ==
LOC: EC 13:54 → 3SCARD 16:43 → INTOOBSV 16:43 → OBSVTOIN 16:43 → 3SCARD 17:57 → UNDODISIN 08-23 16:09
PROVIDERS: ADMIT Hospitalist; ATTEND Hospitalist
DX: J96.22 Acute and chronic respiratory failure with hypercapnia (principal); J96.21 Acute and chronic respiratory failure with hypoxia; E66.2 Morbid (severe) obesity with alveolar hypoventilation; I50.33 Acute on chronic diastolic (congestive) heart failure; Z86.16 Personal history of COVID-19; I11.0 Hypertensive heart disease with heart failure; I45.2 Bifascicular block; G93.40 Encephalopathy, unspecified; I48.3 Typical atrial flutter; I48.0 Paroxysmal atrial fibrillation; I44.0 Atrioventricular block, first degree; J84.10 Pulmonary fibrosis, unspecified; J44.1 Chronic obstructive pulmonary disease with (acute) exacerbation; E78.5 Hyperlipidemia, unspecified; I08.3 Combined rheumatic disorders of mitral, aortic and tricuspid valves; D61.818 Other pancytopenia; R79.89 Other specified abnormal findings of blood chemistry; G47.33 Obstructive sleep apnea (adult) (pediatric); G89.29 Other chronic pain; M54.9 Dorsalgia, unspecified; L89.152 Pressure ulcer of sacral region, stage 2; M19.90 Unspecified osteoarthritis, unspecified site; F32.A Depression, unspecified; Z16.24 Resistance to multiple antibiotics; Z99.81 Dependence on supplemental oxygen; Z68.42 Body mass index [BMI] 45.0-49.9, adult; Z20.822 Contact with and (suspected) exposure to COVID-19; Z79.01 Long term (current) use of anticoagulants; Z79.51 Long term (current) use of inhaled steroids; Z79.899 Other long term (current) drug therapy; Z88.0 Allergy status to penicillin; Z86.73 Personal history of transient ischemic attack (TIA), and cerebral infarction without residual deficits; Z74.01 Bed confinement status; Z90.710 Acquired absence of both cervix and uterus; Z85.43 Personal history of malignant neoplasm of ovary; Z86.19 Personal history of other infectious and parasitic diseases; Z91.81 History of falling; Z87.891 Personal history of nicotine dependence; Z87.01 Personal history of pneumonia (recurrent); Z98.890 Other specified postprocedural states; Z82.0 Family history of epilepsy and other diseases of the nervous system; Z82.49 Family history of ischemic heart disease and other diseases of the circulatory system; Z80.9 Family history of malignant neoplasm, unspecified
CPT/HCPCS: 99285; 36415; 94660 ×3; 94640 ×4; 36600; 94760; 93005; 93306; 97110; 97530; 97162; 97535; 97166; 83880; 80053; 80048; 82805; 82803; 84484; 85025 ×2; 85610; 85730; 87040; 84145; 87635; 71046; 70450; G0378 ×3

== ENCOUNTER 2021-10-31 02:38 | Inpatient (IN) | payer MEDICARE ==
[2021-10-31] MEDS ORDERED: FUROSEMIDE 10 MG/ML 10 ML VIAL IV STA (03:13)
--- NOTE | 2021-10-31 03:15 | ED ---
SOB HPI - General Source: EMS, RN notes reviewed Mode of arrival: EMS Limitations: altered mental status <Gopal Muniz - Last Filed: 10/31/21 03:50> - History of Present Illness MD Complaint: shortness of breath <Andrew Avitia - Last Filed: 10/31/21 05:51> - General Chief Complaint: Shortness of Breath Stated Complaint: Confusion Time Seen by Provider: 10/31/21 03:00 - History of Present Illness Initial Comments: This is a pleasant 86-year-old female with history of TIA, atrial fibrillation, hypertension, pneumonia. Patient is oxygen dependent at home. Apparently the patient wears BiPAP and according to the daughter was having an oxygen saturation down to 59. She was taken off BiPAP and put back on nasal cannula and she is now having accentuation in the 90s. Patient has no current complaints however daughter states that she seems to be more confused than usual and is having a hard time ambulating due to generalized weakness. Patient sees pulmonary, Dr. Mancilla for chronic lung disease. Patient also has a history of congestive heart failure. (Gopal Muniz) - Related Data Home Medications Medication Instructions Recorded Confirmed Atorvastatin [Lipitor] 40 mg PO HS@209908/17/17 08/21/21 DULoxetine HCL [Cymbalta] 20 mg PO HS@209910/16/17 08/21/21 Apixaban [Eliquis] 5 mg PO BID@0900,209912/12/19 08/21/21 Fluticasone Nasal [place] [Flonase 1 spray EA NOSTRIL DAILY PRN 12/12/19 08/21/21 Nasal [place]] Metoprolol Succinate [Toprol XL] 25 mg PO DAILY@0900 12/12/19 08/21/21 Triamcinolone 0.1% Ointment 1 applic TOPICAL Q12H 06/15/21 08/21/21 [Kenalog 0.1% Ointment] rOPINIRole HCL [Requip] 3 mg PO BID@0900,209906/15/21 08/21/21 Albuterol Inhaler [Ventolin Hfa 2 puff INHALATION RT-QID PRN 07/17/21 08/21/21 Inhaler] Ascorbic Acid [Vitamin C] 500 mg PO HS@209908/21/21 08/21/21 Budesonide-Formot 160-4.5 Mcg 2 puff INHALATION RT-BID@0900,2100 08/21/21 08/21/21 [Symbicort 160-4.5 Mcg Inhaler] Cholecalciferol [Vitamin D3 (25 25 mcg PO DAILY@0900 08/21/21 08/21/21 Mcg = 1000 Iu)] Clindamycin Phosphate [Cleocin T 1 applicate TOPICAL Q12H 08/21/21 08/21/21 1% Lotion] Clobetasol Prop [place] 0.05% 1 applic TOPICAL Q12H 08/21/21 08/21/21 Coccyx-Z Guard 1 applic TOPICAL Q12H 08/21/21 08/21/21 Furosemide [Lasix] 40 mg PO DAILY@0600 08/21/21 08/21/21 Health Eyes/Lutien 1 tab PO DAILY@0900 08/21/21 08/21/21 Ipratropium-Albuterol Nebulize 3 ml INHALATION RT-QID 08/21/21 08/21/21 [Duoneb 0.5 mg-3 mg/3 ml Soln] Magnesium Hydroxide [Milk of 2,400 mg PO DAILY PRN 08/21/21 08/21/21 Magnesia] Potassium Chloride ER [K-Dur 20] 20 meq PO DAILY@0900 08/21/21 08/21/21 acetaZOLAMIDE [Diamox] 250 mg PO DAILY@0900 08/21/21 08/21/21 Previous Rx's Medication Instructions Recorded Acetaminophen Tab [Tylenol] 650 mg PO Q6HR PRN tab 06/24/21 HYDROcodone/APAP 7.5-325MG [[place] 1 tab PO BID PRN #6 tab 08/23/21 7.5-325] Melatonin 3 mg PO HS tablet 08/23/21 Pregabalin [Lyrica] 150 mg PO TID@0600,1400,2200 #6 cap 08/23/21 Allergies Allergy/AdvReac Type Severity Reaction Status Date / Time Penicillins Allergy Swelling/it Verified 10/31/21 02:45 lolis Review of Systems ROS Other: All systems not noted in ROS Statement are negative. <Gopal Muniz - Last Filed: 10/31/21 03:50> ROS Other: All systems not noted in ROS Statement are negative. <Andrew Avitia - Last Filed: 10/31/21 05:51> ROS Statement: Those systems with pertinent positive or pertinent negative responses have been documented in the HPI. Past Medical History Past Medical History: Atrial Fibrillation, Cancer, Heart Failure, CVA/TIA, Hypertension, Pneumonia, Sleep Apnea/CPAP/BIPAP Additional Past Medical History / Comment(s): chronic back pain, ovarian cancer History of Any Multi-Drug Resistant Organisms: C-DIFF Date of last positivie culture/infection: stool MDRO Source:: 1998 Past Surgical History: Back Surgery, Hernia Repair, Hysterectomy Additional Past Surgical History / Comment(s): jero knee,brain tumor removed, exp lap Past Anesthesia/Blood Transfusion Reactions: No Reported Reaction Past Psychological History: Depression Smoking Status: Former smoker Past Alcohol Use History: Rare Past Drug Use History: None Reported - Past Family History Father Family Medical History: Myocardial Infarction ([place]) Mother Additional Family Medical History / Comment(s): parkinson's Sister(s) Family Medical History: Cancer <Gopal Muniz - Last Filed: 10/31/21 03:50> General Exam Limitations: no limitations, altered mental status General appearance: obese Head exam: Present: atraumatic, normocephalic, normal inspection Eye exam: Present: normal appearance, PERRL, EOMI. Absent: scleral icterus, conjunctival injection, periorbital swelling ENT exam: Present: normal exam, mucous membranes moist Neck exam: Present: normal inspection, full ROM. Absent: tenderness, meningismus, lymphadenopathy Respiratory exam: Present: normal lung sounds bilaterally, rales (Bibasilar rales noted). Absent: respiratory distress, wheezes, rhonchi, stridor, chest wall tenderness, accessory muscle use Cardiovascular Exam: Present: regular rate, normal rhythm, normal heart sounds. Absent: systolic murmur, diastolic murmur, rubs, gallop, clicks GI/Abdominal exam: Present: soft, normal bowel sounds. Absent: distended, tenderness, guarding, rebound, rigid Extremities exam: Present: normal inspection, full ROM, normal capillary refill, pedal edema (Bilateral pedal edema). Absent: tenderness, joint swelling, calf tenderness Back exam: Present: normal inspection Neurological exam: Present: alert, oriented X3, CN II-XII intact, other (Gait not tested, no focal neurologic deficits). Absent: altered, motor sensory deficit, reflexes normal Psychiatric exam: Present: normal affect, normal mood Skin exam: Present: warm, dry, intact, normal color. Absent: rash <FlavioGopal - Last Filed: 10/31/21 03:50> - General Exam Comments Initial Comments: Obese oxygen dependent female in no significant distress at the time I'm entering the room. Currently nasal cannula at 5 liters per minute. (Gopal Muniz) Course Vital Signs 10/31/21 02:39 Temperature 98.4 F Pulse Rate 58 L Respiratory 20 Rate Blood Pressure 121/54 O2 Sat by Pulse 91 L Oximetry Medical Decision Making <Gopal Muniz - Last Filed: 10/31/21 03:50> - Lab Data Result diagrams: 10/31/21 03:23 10/31/21 03:23 <Andrew Avitia - Last Filed: 10/31/21 05:51> - Medical Decision Making Percents of symptomology, possibly related to acute CHF exacerbation. Patient 40 mg of Lasix at home. I'm going to give the patient 80 mg of Lasix IV push. We'll likely need to be admitted. She sees Dr. Bearden for pulmonary care. Patient really does not seem confused at this time. Patient's confusion likely due to transient hypoxemia at home, possible hypoventilation. Patient endorsed to the ED attending physician, Dr. Avitia, for further evaluation and disposition (Gopal Muniz) - Lab Data Lab Results 10/31/21 10/31/21 10/31/21 Range/Units 03:23 03:23 03:23 WBC 5.6 (3.8-10.6) k/uL RBC 3.87 (3.80-5.40) m/uL Hgb 12.2 (11.4-16.0) gm/dL Hct 40.6 (34.0-46.0) % MCV 104.9 H (80.0-100.0) fL MCH 31.6 (25.0-35.0) pg MCHC 30.1 L (31.0-37.0) g/dL RDW 15.8 H (11.5-15.5) % Plt Count 114 L (150-450) k/uL MPV 9.4 Neutrophils % 58 % Lymphocytes % 31 % Monocytes % 6 % Eosinophils % 3 % Basophils % 0 % Neutrophils # 3.3 (1.3-7.7) k/uL Lymphocytes # 1.8 (1.0-4.8) k/uL Monocytes # 0.3 (0-1.0) k/uL Eosinophils # 0.1 (0-0.7) k/uL Basophils # 0.0 (0-0.2) k/uL Hypochromasia Marked Macrocytosis Moderate PT 11.4 (9.0-12.0) sec INR 1.1 (<1.2) APTT 31.3 H (22.0-30.0) sec Sample Site ABG pH (7.35-7.45) ABG pCO2 (35-45) mmHg ABG pO2 (83-108) mmHg ABG HCO3 (21-25) mmol/L ABG Total CO2 (19-24) mmol/L ABG O2 Saturation (94-97) % ABG Base Excess mmol/L Favio Test FiO2 % Sodium 137 (137-145) mmol/L Potassium 4.4 (3.5-5.1) mmol/L Chloride 95 L (98-107) mmol/L Carbon Dioxide 39 H (22-30) mmol/L Anion Gap 3 mmol/L BUN 17 (7-17) mg/dL Creatinine 1.13 H (0.52-1.04) mg/dL Est GFR (CKD-EPI)AfAm 51 (>60 ml/min/1.73 sqM) Est GFR (CKD-EPI)NonAf 45 (>60 ml/min/1.73 sqM) Glucose 88 (74-99) mg/dL Calcium 9.1 (8.4-10.2) mg/dL Magnesium 2.3 (1.6-2.3) mg/dL Total Bilirubin 0.6 (0.2-1.3) mg/dL AST 27 (14-36) U/L ALT 12 (4-34) U/L Alkaline Phosphatase 73 (38-126) U/L Troponin I (0.000-0.034) ng/mL NT-Pro-B Natriuret Pep pg/mL Total Protein 6.0 L (6.3-8.2) g/dL Albumin 3.6 (3.5-5.0) g/dL Urine Color Urine Appearance (Clear) Urine pH (5.0-8.0) Ur Specific [place] (1.001-1.035) Urine Protein (Negative) Urine Glucose (UA) (Negative) Urine Ketones (Negative) Urine Blood (Negative) Urine Nitrite (Negative) Urine Bilirubin (Negative) Urine Urobilinogen (<2.0) mg/dL Ur Leukocyte Esterase (Negative) Coronavirus (PCR) (Not Detectd) 10/31/21 10/31/21 10/31/21 Range/Units 03:23 03:23 03:23 WBC (3.8-10.6) k/uL RBC (3.80-5.40) m/uL Hgb (11.4-16.0) gm/dL Hct (34.0-46.0) % MCV (80.0-100.0) fL MCH (25.0-35.0) pg MCHC (31.0-37.0) g/dL RDW (11.5-15.5) % Plt Count (150-450) k/uL MPV Neutrophils % % Lymphocytes % % Monocytes % % Eosinophils % % Basophils % % Neutrophils # (1.3-7.7) k/uL Lymphocytes # (1.0-4.8) k/uL Monocytes # (0-1.0) k/uL Eosinophils # (0-0.7) k/uL Basophils # (0-0.2) k/uL Hypochromasia Macrocytosis PT (9.0-12.0) sec INR (<1.2) APTT (22.0-30.0) sec Sample Site ABG pH (7.35-7.45) ABG pCO2 (35-45) mmHg ABG pO2 (83-108) mmHg ABG HCO3 (21-25) mmol/L ABG Total CO2 (19-24) mmol/L ABG O2 Saturation (94-97) % ABG Base Excess mmol/L Favio Test FiO2 % Sodium (137-145) mmol/L Potassium (3.5-5.1) mmol/L Chloride (98-107) mmol/L Carbon Dioxide (22-30) mmol/L Anion Gap mmol/L BUN (7-17) mg/dL Creatinine (0.52-1.04) mg/dL Est GFR (CKD-EPI)AfAm (>60 ml/min/1.73 sqM) Est GFR (CKD-EPI)NonAf (>60 ml/min/1.73 sqM) Glucose (74-99) mg/dL Calcium (8.4-10.2) mg/dL Magnesium (1.6-2.3) mg/dL Total Bilirubin (0.2-1.3) mg/dL AST (14-36) U/L ALT (4-34) U/L Alkaline Phosphatase (38-126) U/L Troponin I <0.012 (0.000-0.034) ng/mL NT-Pro-B Natriuret Pep 587 pg/mL Total Protein (6.3-8.2) g/dL Albumin (3.5-5.0) g/dL Urine Color Urine Appearance (Clear) Urine pH (5.0-8.0) Ur Specific [place] (1.001-1.035) Urine Protein (Negative) Urine Glucose (UA) (Negative) Urine Ketones (Negative) Urine Blood (Negative) Urine Nitrite (Negative) Urine Bilirubin (Negative) Urine Urobilinogen (<2.0) mg/dL Ur Leukocyte Esterase (Negative) Coronavirus (PCR) Not Detected (Not Detectd) 10/31/21 10/31/21 Range/Units 03:42 03:43 WBC (3.8-10.6) k/uL RBC (3.80-5.40) m/uL Hgb (11.4-16.0) gm/dL Hct (34.0-46.0) % MCV (80.0-100.0) fL MCH (25.0-35.0) pg MCHC (31.0-37.0) g/dL RDW (11.5-15.5) % Plt Count (150-450) k/uL MPV Neutrophils % % Lymphocytes % % Monocytes % % Eosinophils % % Basophils % % Neutrophils # (1.3-7.7) k/uL Lymphocytes # (1.0-4.8) k/uL Monocytes # (0-1.0) k/uL Eosinophils # (0-0.7) k/uL Basophils # (0-0.2) k/uL Hypochromasia Macrocytosis PT (9.0-12.0) sec INR (<1.2) APTT (22.0-30.0) sec Sample Site rbrach ABG pH 7.34 L (7.35-7.45) ABG pCO2 73 H* (35-45) mmHg ABG pO2 60 L (83-108) mmHg ABG HCO3 39 H (21-25) mmol/L ABG Total CO2 41 H (19-24) mmol/L ABG O2 Saturation 90.4 L (94-97) % ABG Base Excess 12.9 mmol/L Favio Test Yes FiO2 44 % Sodium (137-145) mmol/L Potassium (3.5-5.1) mmol/L Chloride (98-107) mmol/L Carbon Dioxide (22-30) mmol/L Anion Gap mmol/L BUN (7-17) mg/dL Creatinine (0.52-1.04) mg/dL Est GFR (CKD-EPI)AfAm (>60 ml/min/1.73 sqM) Est GFR (CKD-EPI)NonAf (>60 ml/min/1.73 sqM) Glucose (74-99) mg/dL Calcium (8.4-10.2) mg/dL Magnesium (1.6-2.3) mg/dL Total Bilirubin (0.2-1.3) mg/dL AST (14-36) U/L ALT (4-34) U/L Alkaline Phosphatase (38-126) U/L Troponin I (0.000-0.034) ng/mL NT-Pro-B Natriuret Pep pg/mL Total Protein (6.3-8.2) g/dL Albumin (3.5-5.0) g/dL Urine Color Yellow Urine Appearance Clear (Clear) Urine pH 6.0 (5.0-8.0) Ur Specific [place] 1.023 (1.001-1.035) Urine Protein Trace H (Negative) Urine Glucose (UA) Negative (Negative) Urine Ketones Negative (Negative) Urine Blood Negative (Negative) Urine Nitrite Negative (Negative) Urine Bilirubin Negative (Negative) Urine Urobilinogen 2.0 (<2.0) mg/dL Ur Leukocyte Esterase Negative (Negative) Coronavirus (PCR) (Not Detectd) Disposition <Gopal Muniz - Last Filed: 10/31/21 03:50> Is patient prescribed a controlled substance at d/c from ED?: No Time of Disposition: 05:51 <Andrew Avitia - Last Filed: 10/31/21 05:51> Clinical Impression: Acute respiratory failure with hypoxia and hypercapnia, CO2 retention, Congestive heart failure, Hypoxia Disposition: ADMITTED IP TO THIS HOSP Condition: Fair Referrals: Shira Ortega MD [Primary Care Provider] - 1-2 days
[2021-10-31 03:51] LABS: ABG Base Excess 12.9 mmol/L; ABG HCO3 39 mmol/L (21-25); ABG Oxygen Saturation 90.4 % (94-97); ABG PH 7.34 (7.35-7.45); ABG PO2 60 mmHg (83-108); ABG TCO2 41 mmol/L (19-24); Allen Test Performed? Yes
[2021-10-31 03:58] LABS: ABG PCO2 73 mmHg (35-45)
[2021-10-31 04:02] LABS: Basophils % (A) 0 %; Eosinophils # (A) 0.1 k/uL (0-0.7); Eosinophils % (A) 3 %; HCT 40.6 % (34.0-46.0); HGB 12.2 gm/dL (11.4-16.0); Hypochromasia Marked; Lymphocytes # (A) 1.8 k/uL (1.0-4.8); Lymphocytes % (A) 31 %; MCH 31.6 pg (25.0-35.0); MCHC 30.1 g/dL (31.0-37.0); MCV 104.9 fL (80.0-100.0); Macrocytosis Moderate; Mean Platelet Volume 9.4; Monocytes # (A) 0.3 k/uL (0-1.0); Monocytes % (A) 6 %; Neutrophils # (A) 3.3 k/uL (1.3-7.7); Neutrophils % (A) 58 %; Platelet Count 114 k/uL (150-450); RBC 3.87 m/uL (3.80-5.40); RDW 15.8 % (11.5-15.5); WBC 5.6 k/uL (3.8-10.6)
[2021-10-31 04:12] LABS: Appearance,Urine Clear (Clear); Bilirubin,Urine Negative (Negative); Blood,Urine Negative (Negative); Color,Urine Yellow; Glucose,Urine (UA) Negative (Negative); Ketones,Urine Negative (Negative); Leukocyte Esterase,Urine Negative (Negative); Nitrite,Urine Negative (Negative); Protein,Urine Trace (Negative); Specific Gravity,Urine 1.023 (1.001-1.035)
[2021-10-31 04:18] LABS: Albumin 3.6 g/dL (3.5-5.0); Calcium 9.1 mg/dL (8.4-10.2); Magnesium 2.3 mg/dL (1.6-2.3); Potassium 4.4 mmol/L (3.5-5.1); Total Bilirubin 0.6 mg/dL (0.2-1.3)
[2021-10-31 04:19] LABS: INR 1.1 (<1.2); Partial Thromboplastin Time 31.3 sec (22.0-30.0); Prothrombin Time 11.4 sec (9.0-12.0)
--- NOTE | 2021-10-31 04:31 | XR ---
EXAMINATION TYPE: XR chest 1V portable DATE OF EXAM: 10/31/2021 COMPARISON: 08/21/2021 HISTORY: Chest pain TECHNIQUE: Single view FINDINGS: There is some patchy atelectasis in the mid and lower lung person. Heart is enlarged. There is a neurostimulator in the thoracic spine. There is pulmonary interstitial edema. Heart appears enl arged. IMPRESSION: Congestive heart failure with patchy atelectasis. Pulmonary congestion improved compared to last exam.
[2021-10-31] MEDS ORDERED: FLUTICASONE 50MCG/SPRAY NASAL 16GM EA NOSTRIL PRN (07:12)
--- NOTE | 2021-10-31 07:16 | P.HPIM ---
History of Present Illness This is a pleasant 86 years old female with past medical history of Atrial Fibrillation, on Eliquis, heart Failure, CVA/TIA, Hypertension, Pneumonia, Sleep Apnea/CPAP/BIPAP, chronic back pain, ovarian cancer, C-DIFF infection , Depression Presents because of increased confusion, shortness of breath, weakness and inability to ambulate Patient was on BiPAP in bed comfortable, information obtained with the help of the daughter Jodi at bedside As per daughter patient is on 3 L/m of oxygen at home and she is on BiPAP at night since July when she was sick. Her nipping machine operator is Dr. Bearden. 2 days ago patient was tired but, however yesterday she become really sick, it was so bad day for her as per daughter, she was confused, sleeping a lot, could not take her medication, she could not stand up. At baseline she walks about 15-21 feet. Then daughter noticed that she was becoming more hypoxic with oxygen dropped to 59% while on 3 L, she bumped up her oxygen to 4.5 L per minute and saturation improved to 83% as per daughter. So she called EMS for her. Patient is awake and alert, she notes she is in the current hospital in [place], she thought its 05/30/2022. And she is oriented to person as well. She denies any chest pain or dyspnea. She has her insight into her nose. She denies headache or weakness or numbness. No vomiting or diarrhea actually she is constipat she denies urinary symptoms but Doppler reports decreased urine ou tput, She never smoked, she does not drink alcohol. Patient is hemodynamically stable, she is slightly tachypneic and 20 and hypoxic at 91% oxygen saturation on 2 L/m CBC is unremarkable, INR 1.1, arterial blood gas showing slightly low pH 7.34, high pCO2 73 and low pO2 at 60 Sodium 137, carbon dioxide elevated 39, creatinine high at 1.13, compared to baseline of 0.7-0.8 Liver enzymes not elevated, troponin negative and proBNP is low 587. Urine analysis is normal Coronavirus not detected Chest x-ray: Congestive heart failure with patchy atelectasis. Pulmonary congestion improved compared to last exam CTA from 07/2021: No pulmonary embolism. Bilateral pulmonary patchy infiltrates and atelectasis. 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 Cardiology and pulmonary team consulted. Review of Systems CONSTITUTIONAL: No fever, no malaise, no fatigue. HEENT: No recent visual problems or hearing problems. Denied any sore throat. CARDIOVASCULAR: No orthopnea, PND, no palpitations, no syncope. PULMONARY: No chest wall tenderness, no hemoptysis. GASTROINTESTINAL: No diarrhea, no nausea, no vomiting, no abdominal pain. Normoactive bowel sounds. NEUROLOGICAL: No headaches, no weakness, no numbness. HEMATOLOGICAL: Denies any bleeding or petechiae. GENITOURINARY: Denies any burning micturition, frequency, or urgency. MUSCULOSKELETAL/RHEUMATOLOGICAL: Denies any joint pain, swelling, or any muscle pain. ENDOCRINE: Denies any polyuria or polydipsia. Past Medical History Past Medical History: Atrial Fibrillation, Cancer, Heart Failure, CVA/TIA, Hypertension, Pneumonia, Sleep Apnea/CPAP/BIPAP Additional Past Medical History / Comment(s): chronic back pain, ovarian cancer History of Any Multi-Drug Resistant Organisms: C-DIFF Date of last positivie culture/infection: stool MDRO Source:: 1998 Past Surgical History: Back Surgery, Hernia Repair, Hysterectomy Additional Past Surgical History / Comment(s): jero knee,brain tumor removed, exp lap Past Anesthesia/Blood Transfusion Reactions: No Reported Reaction Past Psychological History: Depression Smoking Status: Former smoker Past Alcohol Use History: Rare Past Drug Use History: None Reported - Past Family History Father Family Medical History: Myocardial Infarction ([place]) Mother Additional Family Medical History / Comment(s): parkinson's Sister(s) Family Medical History: Cancer Medications and Allergies Home Medications Medication Instructions Recorded Confirmed Type Atorvastatin [Lipitor] 40 mg PO HS@209908/17/17 10/31/21 History DULoxetine HCL [Cymbalta] 20 mg PO HS@209910/16/17 10/31/21 History Apixaban [Eliquis] 5 mg PO BID@0900,209912/12/19 10/31/21 History Fluticasone Nasal [place] [Flonase 1 spr EA NOSTRIL DAILY PRN 12/12/19 10/31/21 History Nasal [place]] Metoprolol Succinate [Toprol XL] 25 mg PO DAILY@0900 12/12/19 10/31/21 History Triamcinolone 0.1% Ointment 1 applic TOPICAL Q12H PRN 06/15/21 10/31/21 History [Kenalog 0.1% Ointment] rOPINIRole HCL [Requip] 3 mg PO BID@00,209906/15/21 10/31/21 History Albuterol Inhaler [Ventolin Hfa 2 puff INHALATION RT-QID PRN 07/17/21 10/31/21 History Inhaler] Ascorbic Acid [Vitamin C] 500 mg PO HS@209908/21/21 10/31/21 History Budesonide-Formot 160-4.5 Mcg 2 puff INHALATION RT-BID@899,209908/21/2102/14 History [Symbicort 160-4.5 Mcg Inhaler] Cholecalciferol [Vitamin D3 (25 25 mcg PO DAILY@89908/21/21 10/31/21 History Mcg = 1000 Iu)] Clindamycin Phosphate [Cleocin T 1 applic TOPICAL Q12H 08/21/21 10/31/21 History 1% Lotion] Furosemide [Lasix] 40 mg PO DAILY@59908/21/21 10/31/21 History Ipratropium-Albuterol Nebulize 3 ml INHALATION RT-QID 08/21/21 10/31/21 History [Duoneb 0.5 mg-3 mg/3 ml Soln] Potassium Chloride ER [K-Dur 20] 20 meq PO DAILY@89908/21/21 10/31/21 History acetaZOLAMIDE [Diamox] 250 mg PO DAILY@89908/21/21 10/31/21 History HYDROcodone/APAP 7.5-325MG [[place] 1 tab PO BID PRN #6 tab 08/23/21 10/31/21 Rx 7.5-325] Pregabalin [Lyrica] 150 mg PO TID@0600,1400,2200 #6 cap 08/23/21 10/31/21 Rx Clobetasol Propionate [Clobex 1 applic TOPICAL Q12H 10/31/21 10/31/21 History [place] 0.05%] Melatonin [Melatonin Chew] 2.5 mg PO HS 10/31/21 10/31/21 History Nystatin 100,000 Unit/gm Powd 1 applic TOPICAL BID 10/31/21 10/31/21 History [Mycostatin Powder] Nystatin 100,000Unit/gm Cream 1 applic TOPICAL BID 10/31/21 10/31/21 History [Mycostatin Cream] Allergies Allergy/AdvReac Type Severity Reaction Status Date / Time Penicillins Allergy Swelling/it Verified 10/31/21 02:45 lolis Physical Exam Vitals: Vital Signs Temp Pulse Resp BP Pulse Ox 10/31/21 02:39 98.4 F 58 L 20 121/54 91 L Intake and Output 10/30/21 10/30/21 10/31/21 14:59 22:59 06:59 Other: Weight 120.202 kg GENERAL: The patient is alert and oriented x3, not in any acute distress. Obese HEENT: Pupils are round and equally reacting to light. EOMI. No scleral icterus. No conjunctival pallor. Normocephalic, atraumatic. No pharyngeal erythema. No thyromegaly. CARDIOVASCULAR: S1 and S2 present. No murmurs, rubs, or gallops. -PULMONARY: Chest is clear to auscultation, no wheezing or crackles. Decreased air entry on both sides, could be partly due to her large body habitus ABDOMEN: Soft, nontender, nondistended, normoactive bowel sounds. No palpable organomegaly. MUSCULOSKELETAL: No joint swelling or deformity. EXTREMITIES: No cyanosis, clubbing, or pedal edema. NEUROLOGICAL: Gross neurological examination did not reveal any focal deficits. SKIN: No rashes. No petechiae Results CBC & Chem 7: 10/31/21 03:23 10/31/21 03:23 Labs: Abnormal Lab Results - Last 24 Hours (Table) 10/31/21 10/31/21 10/31/21 Range/Units 03:23 03:23 03:23 MCV 104.9 H (80.0-100.0) fL MCHC 30.1 L (31.0-37.0) g/dL RDW 15.8 H (11.5-15.5) % Plt Count 114 L (150-450) k/uL APTT 31.3 H (22.0-30.0) sec ABG pH (7.35-7.45) ABG pCO2 (35-45) mmHg ABG pO2 (83-108) mmHg ABG HCO3 (21-25) mmol/L ABG Total CO2 (19-24) mmol/L ABG O2 Saturation (94-97) % Chloride 95 L (98-107) mmol/L Carbon Dioxide 39 H (22-30) mmol/L Creatinine 1.13 H (0.52-1.04) mg/dL Total Protein 6.0 L (6.3-8.2) g/dL Urine Protein (Negative) 10/31/21 10/31/21 Range/Units 03:42 03:43 MCV (80.0-100.0) fL MCHC (31.0-37.0) g/dL RDW (11.5-15.5) % Plt Count (150-450) k/uL APTT (22.0-30.0) sec ABG pH 7.34 L (7.35-7.45) ABG pCO2 73 H* (35-45) mmHg ABG pO2 60 L (83-108) mmHg ABG HCO3 39 H (21-25) mmol/L ABG Total CO2 41 H (19-24) mmol/L ABG O2 Saturation 90.4 L (94-97) % Chloride (98-107) mmol/L Carbon Dioxide (22-30) mmol/L Creatinine (0.52-1.04) mg/dL Total Protein (6.3-8.2) g/dL Urine Protein Trace H (Negative) Assessment and Plan Assessment: Acute hypoxic hypercapnic respiratory failure Acute COPD exacerbation possible obesity hypoventilation syndrome Mild acute kidney injury Paroxysmal atrial fibrillation on Eliquis Heart failure history of cough with infection a few months ago History of CVA/TIA Hypertension History of sleep apnea Chronic back pain History of ovarian cancer History of depression, not in active tissue Morbid obesity with BMI of 48.5 Plan: This is a pleasant 86 years old female who presents with acute dyspnea and bilateral pulmonary infiltrate. Patient has already started on IV Lasix and continue with inhaled steroids and bronchodilators and oxygen as needed. Continue with BiPAP as needed We will check Pro-calcitonin and repeat BNP. Monitor creatinine and electrolyte Cardiology and pulmonary consult check a bladder scan Check TSH and hemoglobin A1c Check influenza and RSV Labs and medication were reviewed.. Continue same treatment. Continue with symptomatic treatment. Resume home medication. Monitor lytes and vitals. DVT and GI prophylaxis. Further recommendations depends on the clinical course of the patient DVT prophylaxis: Eliquis GI Prophylaxis: Pepcid PT/OT: Pending Prognosis is guarded
[2021-10-31] MEDS: FAMOTIDINE 20 MG/2 ML VIAL IV SCH ×2 (08:28→21:54)
[2021-10-31] MEDS: APIXABAN 5 MG TAB PO SCH ×2 (08:28→20:53)
[2021-10-31] MEDS: METOPROLOL SUCCINATE (ER) 25 MG TAB.ER.24H PO SCH (08:28)
[2021-10-31] MEDS: CLOBETASOL PROP 0.05% CR 15GM TOPICAL SCH ×2 (08:42→21:54)
[2021-10-31 09:06] LABS: Estimated Average Glucose UNC
--- NOTE | 2021-10-31 10:14 | P.CNPUL ---
History of Present Illness Consult date: 10/31/21 Requesting physician: Anibal Ferrari Reason for consult: dyspnea, hypoxemia, abnormal CXR/CT Chief complaint: Altered mental status, generalized weakness History of present illness: This is a very pleasant 86-year-old morbidly obese female patient with a known history of atrial fibrillation anticoagulated with Eliquis, congestive heart failure, diastolic in nature, CVA/TIA, hypertension, obstructive sleep apnea utilizing CPAP at home and she also has chronic obstructive pulmonary disease and wears oxygen at home at 3 L. She follows with Dr. Bearden in our office for the same. She is a former smoker. She was brought into the emergency room early this morning as her daughter found her to be altered. She had been taken off her CPAP at home and her action level is down to 59%. Chest x-ray reveals areas of congestive heart failure with patchy atelectasis. White count 5.6. Hemoglobin 12.2. Platelets 114. Sodium 137. Potassium 4.4. Bicarb 39. Creatinine 1.13. Troponins negative 2. ProBNP 587. Pro-calcitonin 0.07. TSH 79.6. Baca virus not detected. Influenza screen negative. RSV screen negative. She is seen today in consultation on the regular medical floor. She is currently on BiPAP 12/5 and 45% FiO2 with O2 saturations in the 90s. She's been afebrile. Hemodynamically stable. His been initiated on Symbicort, albuterol. IV Lasix at 40 mg every 8 hours. She's anticoagulated with Eliquis. Review of Systems REVIEW OF SYSTEMS: CONSTITUTIONAL: Positive for altered mental status. Denies any recent significant weight loss or weight gain. EYES: Denies change in vision. EARS, NOSE, MOUTH, THROAT: Denies headaches, denies sore throat. CARDIOVASCULAR: Denies chest pain, palpitations or syncopal episodes. RESPIRATORY: Positive for shortness of breath, cough, congestion or hemoptysis. GASTROINTESTINAL: Denies change in appetite, denies abdominal pain GENITOURINARY: Denies hematuria, denies infections. MUSKULOSKELETAL: Positive for edema of the lower extremities. INTEGUMENTARY: Denies rash, denies eczema. NEUROLOGICAL: Denies recent memory loss, no recent seizure activity. PSYCHIATRIC: Denies anxiety, denies depression. HEMATOLOGIC/LYMPHATIC: Denies anemia, denies enlarged lymph nodes. Past Medical History Past Medical History: Atrial Fibrillation, Cancer, Heart Failure, COPD, Fibr omyalgia, GERD/Reflux, Hyperlipidemia, Hypertension, Osteoarthritis (OA), Pneumonia, Respiratory Disorder, Skin Disorder, Sleep Apnea/CPAP/BIPAP Additional Past Medical History / Comment(s): Chronic hypoxic and hypercanpnic respiratory failure/obesity hypoventilation syndrome, home O2 at 4L/NC daytime and Bipap at night, past pneumonias and covid pneumonia 05/2021, pulmonary fibrosis, cardiac valve disease, ovarian cancer with surgery/chemo/radiation, benign brain tumor removed, PVCs, chronic back pain/bilateral hips and shoulders, RLS, psoriasis, sacral decub, 1998 Cdiff colitis. History of Any Multi-Drug Resistant Organisms: C-DIFF Date of last positivie culture/infection: stool MDRO Source:: 1998 Past Surgical History: Back Surgery, Heart Catheterization, Hernia Repair, Hysterectomy, Joint Replacement, Tonsillectomy Additional Past Surgical History / Comment(s): Total hysterectomy, incisional hernia with mesh which later became imfected and had exploratory laparatomy/wound vac, back surgeries x2, EGD, colonoscopy, hemorrhoidectomy, loop recorder, brain tumor removed, bilateral total knee arthroplasties, bilateral cataract surgery. Past Anesthesia/Blood Transfusion Reactions: No Reported Reaction Smoking Status: Never smoker - Past Family History Father Family Medical History: Myocardial Infarction ([place]) Additional Family Medical History / Comment(s): Father of a [place] at the age of 56yrs. Mother Additional Family Medical History / Comment(s): parkinson's Sister(s) Family Medical History: Cancer Medications and Allergies Home Medications Medication Instructions Recorded Confirmed Type Atorvastatin [Lipitor] 40 mg PO HS@209908/17/17 10/31/21 History DULoxetine HCL [Cymbalta] 20 mg PO HS@209910/16/17 10/31/21 History Apixaban [Eliquis] 5 mg PO BID@09,209912/12/19 10/31/21 History Fluticasone Nasal [place] [Flonase 1 spr EA NOSTRIL DAILY PRN 12/12/19 10/31/21 History Nasal [place]] Metoprolol Succinate [Toprol XL] 25 mg PO DAILY@0900 12/12/19 10/31/21 History Triamcinolone 0.1% Ointment 1 applic TOPICAL Q12H PRN 06/15/21 10/31/21 History [Kenalog 0.1% Ointment] rOPINIRole HCL [Requip] 3 mg PO BID@899,209906/15/21 10/31/21 History Albuterol Inhaler [Ventolin Hfa 2 puff INHALATION RT-QID PRN 07/17/21 10/31/21 History Inhaler] Ascorbic Acid [Vitamin C] 500 mg PO HS@209908/21/21 10/31/21 History Budesonide-Formot 160-4.5 Mcg 2 puff INHALATION RT-BID@899,209908/21/21 10/31/21 History [Symbicort 160-4.5 Mcg Inhaler] Cholecalciferol [Vitamin D3 (25 25 mcg PO DAILY@89908/21/21 10/31/21 History Mcg = 1000 Iu)] Clindamycin Phosphate [Cleocin T 1 applic TOPICAL Q12H 08/21/21 10/31/21 History 1% Lotion] Furosemide [Lasix] 40 mg PO DAILY@59908/21/21 10/31/21 History Ipratropium-Albuterol Nebulize 3 ml INHALATION RT-QID 08/21/21 10/31/21 History [Duoneb 0.5 mg-3 mg/3 ml Soln] Potassium Chloride ER [K-Dur 20] 20 meq PO DAILY@89908/21/21 10/31/21 History acetaZOLAMIDE [Diamox] 250 mg PO DAILY@89908/21/21 10/31/21 History HYDROcodone/APAP 7.5-325MG [[place] 1 tab PO BID PRN #6 tab 08/23/21 10/31/21 Rx 7.5-325] Pregabalin [Lyrica] 150 mg PO TID@0600,1400,2200 #6 cap 08/23/21 10/31/21 Rx Clobetasol Propionate [Clobex 1 applic TOPICAL Q12H 10/31/21 10/31/21 History [place] 0.05%] Melatonin [Melatonin Chew] 2.5 mg PO HS 10/31/21 10/31/21 History Nystatin 100,000 Unit/gm Powd 1 applic TOPICAL BID 10/31/21 10/31/21 History [Mycostatin Powder] Nystatin 100,000Unit/gm Cream 1 applic TOPICAL BID 10/31/21 10/31/21 History [Mycostatin Cream] Allergies Allergy/AdvReac Type Severity Reaction Status Date / Time Penicillins Allergy Swelling/it Verified 10/31/21 02:45 lolis Physical Exam Vitals: Vital Signs Temp Pulse Pulse Resp BP BP Pulse Ox 10/31/21 08:00 98.2 F 59 L 20 130/67 97 10/31/21 07:20 98.5 F 73 22 91/52 95 10/31/21 02:39 98.4 F 58 L 20 121/54 91 L Intake and Output 10/30/21 10/31/21 10/31/21 22:59 06:59 14:59 Other: Weight 120.202 kg 120.202 kg GENERAL EXAM: Alert, pleasant 86-year-old female patient, on BiPAP 12/5 and 45% FiO2, comfortable in no apparent distress. HEAD: Normocephalic. EYES: Normal reaction of pupils, equal size. NOSE: Clear with pink turbinates. THROAT: No erythema or exudates. NECK: No masses, no JVD. CHEST: No chest wall deformity. LUNGS: Equal air entry with crackles in the bilateral bases CVS: S1 and S2 normal with no audible murmur, regular rhythm. ABDOMEN: No hepatosplenomegaly, normal bowel sounds, no guarding or rigidity. SPINE: No scoliosis or deformity SKIN: No rashes CENTRAL NERVOUS SYSTEM: No focal deficits, tone is normal in all 4 extremities. EXTREMITIES: There is 1-2+ peripheral edema. No clubbing, no cyanosis. Peripheral pulses are intact. Results - Laboratory Findings CBC and BMP: 10/31/21 03:23 10/31/21 03:23 ABG ABG pH 7.34 (7.35-7.45) L 10/31/21 03:43 ABG pCO2 73 mmHg (35-45) H* 10/31/21 03:43 ABG pO2 60 mmHg (83-108) L 10/31/21 03:43 ABG O2 Saturation 90.4 % (94-97) L 10/31/21 03:43 PT/INR, D-dimer PT 11.4 sec (9.0-12.0) 10/31/21 03:23 INR 1.1 (<1.2) 10/31/21 03:23 Abnormal lab findings: Abnormal Labs 10/31/21 10/31/21 10/31/21 03:23 03:23 03:23 MCV 104.9 H MCHC 30.1 L RDW 15.8 H Plt Count 114 L APTT 31.3 H ABG pH ABG pCO2 ABG pO2 ABG HCO3 ABG Total CO2 ABG O2 Saturation Chloride 95 L Carbon Dioxide 39 H Creatinine 1.13 H Total Protein 6.0 L TSH Urine Protein 10/31/21 10/31/21 10/31/21 03:23 03:42 03:43 MCV MCHC RDW Plt Count APTT ABG pH 7.34 L ABG pCO2 73 H* ABG pO2 60 L ABG HCO3 39 H ABG Total CO2 41 H ABG O2 Saturation 90.4 L Chloride Carbon Dioxide Creatinine Total Protein TSH 79.600 H Urine Protein Trace H - Diagnostic Findings Chest x-ray: image reviewed Assessment and Plan Assessment: Acute on chronic hypoxemic respiratory failure secondary to an acute exacerbation of diastolic congestive heart failure Acute on chronic hypercapnic respiratory failure secondary to above Chronic obstructive pulmonary disease normally on home oxygen at 3 L/m Obstructive sleep apnea, on CPAP at 13 cm of water with oxygen at 3 L Morbid obesity, BMI 48.5 kg per metered squared Atrial fibrillation, and related with glucose Hypertension Hyperlipidemia Hypothyroidism Plan: The patient was seen and evaluated Chest x-ray and labs reviewed Continue BiPAP support for now We'll give a trial of nasal cannula later this afternoon Continue with IV diuretics Monitor intake and output Continue Symbicort, albuterol We will continue to follow and make further recommendations based on her clinical status I have personally seen and examined the patient, performed the documentation and the assessment and plan as written. Number of minutes spent on the visit: 20. This is a split shared evaluation that was done with the nurse practitioner. The evaluation was done more than 30 minutes. I was involved in more than 90% of this evaluation. There is a representation of an acute hypoxic respiratory failure and acute on top of chronic hypoxic and hypercapnic respiratory failure as the patient has underlying obesity, obesity hypoventilation syndrome/obstructive sleep apnea and the patient has been maintained on CPAP therapy on outpatient basis with poor compliance. The patient also has signs of right-sided failure and fluid overload with significant lower extremity edema and pulmonary edema. The patient is benefiting from BiPAP therapy and diuretics which will be continued. We'll keep her on a BiPAP for another 24 hours and take it off as of tomorrow. Clinically improving. More awake P no signs of any CO2 narcosis at this point in time.
[2021-10-31] MEDS: FUROSEMIDE 10 MG/ML 4 ML VIAL IV SCH ×3 (11:07→21:54)
[2021-10-31] MEDS: SYMBICORT 160-4.5 MCG INHALER INHALATION SCH ×2 (11:16→15:58)
[2021-10-31 11:26] LABS: T4, Free (Free Thyroxine) <0.07 ng/dL (0.78-2.19)
--- NOTE | 2021-10-31 12:21 | P.CRDCN ---
History of Present Illness Consult date: 10/31/21 History of present illness: HISTORY OF PRESENT ILLNESS: This is a 86-year-old female with a past medical history significant for congestive heart failure, aortic stenosis, paroxysmal atrial fibrillation, obstructive sleep apnea, and COPD with home oxygen use. Patient follows in the office with Dr. Watts. We have been asked to see the patient in consultation for CHF. Patient examined at the bedside. Patient states she came to the hospital because she was extremity and shortness of breath over the past few days. The patient was found to be in CHF. She was started on IV Lasix. The patient is currently on a BiPAP with 45% FiO2. She states her breathing has improved since going to the hospital. She denies any chest pain or pressure. * Chest xray congestive heart failure with patchy atelectasis. Pulmonary congestion improved compared to last exam * Laboratory data: WBC 5.6. Hemoglobin 12.2. Platelet count 114. Sodium 137. Potassium 4.4. BUN 17. Creatinine 1.13. Troponin negative 2. ProBNP 587. * Current home cardiac medications include glucose 5 mg twice a day, Lipitor 40 mg daily, Lasix 40 mg daily, metoprolol succinate 25 mg daily, Diamox 250 mg daily * Most recent echocardiogram obtained in July 2021 revealed ejection fraction 65-70%, mild MR, mild TR * Patient had an echocardiogram completed in June 2020 revealing ejection fraction 60% with moderate aortic stenosis * Cardiac catheterization history: January 2011 revealed 30% proximal LAD stenosis REVIEW OF SYSTEMS: At the time of my exam: CONSTITUTIONAL: Denies fever or chills. HEENT: Denies blurred vision, vision changes, or eye pain. Denies hemoptysis CARDIOVASCULAR: Denies chest pain. Denies orthopnea. Denies PND. Denies palpitations RESPIRATORY: Denies shortness of breath. GASTROINTESTINAL: Denies abdominal pain. Denies nausea or vomiting. HEMATOLOGIC: Denies bleeding disorders. GENITOURINARY: Denies any blood in urine. SKIN: Denies pruitis. Denies rash. PHYSICAL EXAM: VITAL SIGNS: Reviewed. GENERAL: Well-developed in no acute distress. HEENT: Head is normocephalic. Pupils are equal, round. Sclerae anicteric. Mucous membranes of the mouth are moist. Neck supple. No JVD or thyromegaly LUNGS: Respirations even and unlabored. Lungs diminished to auscultation bilaterally. HEART: Regular rate and rhythm. S1 and S2 heard. Systolic murmur noted ABDOMEN: Soft. Nondistended. Nontender. EXTREMITIES: Normal range of motion. No clubbing or cyanosis. Peripheral pulses intact. 23+ bilateral lower extremity edema NEUROLOGIC: Awake and alert. Oriented x 3. ASSESSMENT: Shortness of breath Acute on chronic congestive heart failure with preserved ejection fraction Aortic stenosis Acute on chronic hypercapnic respiratory failure COPD Obstructive sleep apnea on CPAP outpatient Proximal atrial fibrillation Hypertension Hyperlipidemia Hypothyroidism PLAN: Obtain limited echo to assess LV function and aortic stenosis Continue current cardiac medications Continue IV Lasix Accurate I&O Daily weights Monitor kidney function Further recommendations pending patient's course Nurse practitioner note has been reviewed by physician. Signing provider agrees with the documented findings, assessment, and plan of care. Past Medical History Past Medical History: Atrial Fibrillation, Cancer, Heart Failure, COPD, Fibromyalgia, GERD/Reflux, Hyperlipidemia, Hypertension, Osteoarthritis (OA), Pneumonia, Respiratory Disorder, Skin Disorder, Sleep Apnea/CPAP/BIPAP Additional Past Medical History / Comment(s): Chronic hypoxic and hypercanpnic respiratory failure/obesity hypoventilation syndrome, home O2 at 4L/NC daytime and Bipap at night, past pneumonias and covid pneumonia 05/2021, pulmonary fibrosis, cardiac valve disease, ovarian cancer with surgery/chemo/radiation, benign brain tumor removed, PVCs, chronic back pain/bilateral hips and shoul ders, RLS, psoriasis, sacral decub, 1998 Cdiff colitis. History of Any Multi-Drug Resistant Organisms: C-DIFF Date of last positivie culture/infection: stool MDRO Source:: 1998 Past Surgical History: Back Surgery, Heart Catheterization, Hernia Repair, Hysterectomy, Joint Replacement, Tonsillectomy Additional Past Surgical History / Comment(s): Total hysterectomy, incisional hernia with mesh which later became imfected and had exploratory laparatomy/wound vac, back surgeries x2, EGD, colonoscopy, hemorrhoidectomy, loop recorder, brain tumor removed, bilateral total knee arthroplasties, bilateral cataract surgery. Past Anesthesia/Blood Transfusion Reactions: No Reported Reaction Smoking Status: Never smoker - Past Family History Father Family Medical History: Myocardial Infarction ([place]) Additional Family Medical History / Comment(s): Father of a [place] at the age of 56yrs. Mother Additional Family Medical History / Comment(s): parkinson's Sister(s) Family Medical History: Cancer Medications and Allergies Home Medications Medication Instructions Recorded Confirmed Type Atorvastatin [Lipitor] 40 mg PO HS@209908/17/17 10/31/21 History DULoxetine HCL [Cymbalta] 20 mg PO HS@209910/16/17 10/31/21 History Apixaban [Eliquis] 5 mg PO BID@899,209912/12/19 10/31/21 History Fluticasone Nasal [place] [Flonase 1 spr EA NOSTRIL DAILY PRN 12/12/19 10/31/21 History Nasal [place]] Metoprolol Succinate [Toprol XL] 25 mg PO DAILY@89912/12/19 10/31/21 History Triamcinolone 0.1% Ointment 1 applic TOPICAL Q12H PRN 06/15/21 10/31/21 History [Kenalog 0.1% Ointment] rOPINIRole HCL [Requip] 3 mg PO BID@899,209906/15/21 10/31/21 History Albuterol Inhaler [Ventolin Hfa 2 puff INHALATION RT-QID PRN 07/17/21 10/31/21 History Inhaler] Ascorbic Acid [Vitamin C] 500 mg PO HS@209908/21/21 10/31/21 History Budesonide-Formot 160-4.5 Mcg 2 puff INHALATION RT-BID@899,209908/21/21 10/31/21 History [Symbicort 160-4.5 Mcg Inhaler] Cholecalciferol [Vitamin D3 (25 25 mcg PO DAILY@89908/21/21 10/31/21 History Mcg = 1000 Iu)] Clindamycin Phosphate [Cleocin T 1 applic TOPICAL Q12H 08/21/21 10/31/21 History 1% Lotion] Furosemide [Lasix] 40 mg PO DAILY@59908/21/21 10/31/21 History Ipratropium-Albuterol Nebulize 3 ml INHALATION RT-QID 08/21/21 10/31/21 History [Duoneb 0.5 mg-3 mg/3 ml Soln] Potassium Chloride ER [K-Dur 20] 20 meq PO DAILY@89908/21/21 10/31/21 History acetaZOLAMIDE [Diamox] 250 mg PO DAILY@00 08/21/21 10/31/21 History HYDROcodone/APAP 7.5-325MG [[place] 1 tab PO BID PRN #6 tab 08/23/21 10/31/21 Rx 7.5-325] Pregabalin [Lyrica] 150 mg PO TID@0600,1400,2200 #6 cap 08/23/21 10/31/21 Rx Clobetasol Propionate [Clobex 1 applic TOPICAL Q12H 10/31/21 10/31/21 History [place] 0.05%] Melatonin [Melatonin Chew] 2.5 mg PO HS 10/31/21 10/31/21 History Nystatin 100,000 Unit/gm Powd 1 applic TOPICAL BID 10/31/21 10/31/21 History [Mycostatin Powder] Nystatin 100,000Unit/gm Cream 1 applic TOPICAL BID 10/31/21 10/31/21 History [Mycostatin Cream] Allergies Allergy/AdvReac Type Severity Reaction Status Date / Time Penicillins Allergy Swelling/it Verified 10/31/21 02:45 lolis Physical Exam Vitals: Vital Signs Temp Pulse Pulse Resp BP BP Pulse Ox 10/31/21 08:25 59 L 20 10/31/21 08:00 98.2 F 59 L 20 130/67 97 10/31/21 07:20 98.5 F 73 22 91/52 95 10/31/21 02:39 98.4 F 58 L 20 121/54 91 L Intake and Output 10/30/21 10/31/21 10/31/21 22:59 06:59 14:59 Other: Voiding Method Indwelling Catheter Weight 120.202 kg 122.4 kg Results 10/31/21 03:23 10/31/21 03:23 Cardiac Enzymes 10/31/21 10/31/21 10/31/21 Range/Units 03:23 03:23 06:34 AST 27 (14-36) U/L Troponin I <0.012 <0.012 (0.000-0.034) ng/mL Coagulation 10/31/21 Range/Units 03:23 PT 11.4 (9.0-12.0) sec APTT 31.3 H (22.0-30.0) sec CBC 10/31/21 Range/Units 03:23 WBC 5.6 (3.8-10.6) k/uL RBC 3.87 (3.80-5.40) m/uL Hgb 12.2 (11.4-16.0) gm/dL Hct 40.6 (34.0-46.0) % Plt Count 114 L (150-450) k/uL Comprehensive Metabolic Panel 10/31/21 Range/Units 03:23 Sodium 137 (137-145) mmol/L Potassium 4.4 (3.5-5.1) mmol/L Chloride 95 L (98-107) mmol/L Carbon Dioxide 39 H (22-30) mmol/L BUN 17 (7-17) mg/dL Creatinine 1.13 H (0.52-1.04) mg/dL Glucose 88 (74-99) mg/dL Calcium 9.1 (8.4-10.2) mg/dL AST 27 (14-36) U/L ALT 12 (4-34) U/L Alkaline Phosphatase 73 (38-126) U/L Total Protein 6.0 L (6.3-8.2) g/dL Albumin 3.6 (3.5-5.0) g/dL Current Medications Generic Name Dose Route Start Last Admin Trade Name Freq PRN Reason Stop Dose Admin Albuterol Sulfate 2.5 mg 10/31/21 07:12 Albuterol Nebulized 2.5 Mg/3 Ml INHALATION RT-QID PRN Shortness Of Breath Apixaban 5 mg 10/31/21 09:00 10/31/21 08:28 Apixaban 5 Mg Tab PO 5 mg BID@0900,2100 COUNT INCLUDES THE [facility] Administration Protocol Atorvastatin Calcium 40 mg 10/31/21 21:00 Atorvastatin 40 Mg Tab PO HS@2100 COUNT INCLUDES THE [facility] Budesonide/Formoterol Fumarate 2 puff 10/31/21 09:00 10/31/21 11:16 Symbicort 160-4.5 Mcg Inhaler INHALATION Not Given RT-BID@00,2099 COUNT INCLUDES THE [facility] Clobetasol Propionate 1 applic 10/31/21 09:00 10/31/21 08:42 Clobetasol Prop 0.05% Cr 15gm TOPICAL Not Given Q12H COUNT INCLUDES THE [facility] Duloxetine HCl 20 mg 10/31/21 21:00 Duloxetine Hcl 20 Mg Capsule. PO HS@2100 COUNT INCLUDES THE [facility] Famotidine 10 mg 10/31/21 09:00 10/31/21 08:28 Famotidine 20 Mg/2 Ml Vial IV 10 mg Q12HR RONY Administration Fluticasone Propionate 1 spray 10/31/21 07:12 Fluticasone 50mcg/[place] Nasal 16gm EA NOSTRIL DAILY PRN Allergy Symptoms Furosemide 40 mg 10/31/21 06:00 10/31/21 11:07 Furosemide 10 Mg/Ml 4 Ml Vial IV 40 mg Q8H RONY Administration Metoprolol Succinate 25 mg 10/31/21 09:00 10/31/21 08:28 Metoprolol Succinate (Er) 25 Mg Tab.Er.24h PO 25 mg DAILY@0900 RONY Administration Pregabalin 150 mg 10/31/21 14:00 Pregabalin 75 Mg Cap PO TID@0600,1400,2200 COUNT INCLUDES THE [facility] Ropinirole HCl 3 mg 10/31/21 09:00 10/31/21 08:28 Ropinirole Hcl 1 Mg Tab PO 3 mg BID@0900,2100 RONY Administration Intake and Output 10/30/21 10/31/21 10/31/21 22:59 06:59 14:59 Other: Voiding Method Indwelling Catheter Weight 120.202 kg 122.4 kg Patient Weight 11/01/21 06:59 Weight 122.4 kg 10/31/21 03:23 10/31/21 03:23
[2021-10-31] MEDS: PREGABALIN 75 MG CAP PO SCH ×2 (14:51→20:53)
--- NOTE | 2021-10-31 17:55 | ECHOF ---
Referral Reason:LV function, eval aortic stenosis MEASUREMENTS -------- HEIGHT: 157.5 cm WEIGHT: 122.0 kg BP: 130/67 AV maxP.91 mmHg AV meanP.18 mmHg RAP: 5.00 mmHg RVSP: 50.39 mmHg FINDINGS -------- Sinus rhythm. Limited Study Overall left ventricular systolic function is normal with, an EF between 55 - 60 %. Aortic valve is trileaflet and is moderately thickened. There is moderate aortic stenosis present. Peak/mean gradient across the Aortic Valve is 54.91mmHg / 32.18mmHg. Moderate mitral annular calcification present. Mild mitral regurgitation is present. Mild tricuspid regurgitation present. There is moderate pulmonary hypertension. The right ventric ular systolic pressure, as measured by Doppler, is 50.39mmHg. The pulmonic valve was not well visualized. There is no pericardial effusion. CONCLUSIONS -------- 1. Limited Study 2. Overall left ventricular systolic function is normal with, an EF between 55 - 60 %. 3. Aortic valve is trileaflet and is moderately thickened. 4. There is moderate aortic stenosis present. 5. Peak/mean gradient across the Aortic Valve is 54.91mmHg / 32.18mmHg. 6. Moderate mitral annular calcification present. 7. Mild mitral regurgitation is present. 8. Mild tricuspid regurgitation present. 9. There is moderate pulmonary hypertension. [employer]ER: Rosalia Bang [facility]
[2021-10-31] MEDS: DULoxetine HCL 20 MG CAPSULE.DR PO SCH (20:53)
[2021-10-31] MEDS: ATORVASTATIN 40 MG TAB PO SCH (20:53)
[2021-11-01] MEDS: PREGABALIN 75 MG CAP PO SCH ×3 (05:17→21:16)
[2021-11-01] MEDS: FUROSEMIDE 10 MG/ML 4 ML VIAL IV SCH ×3 (05:17→21:17)
[2021-11-01] MEDS ORDERED: LEVOTHYROXINE 75 MCG TAB PO SCH (06:30)
[2021-11-01] MEDS: METOPROLOL SUCCINATE (ER) 25 MG TAB.ER.24H PO SCH (08:18)
[2021-11-01] MEDS: APIXABAN 5 MG TAB PO SCH ×2 (08:18→21:17)
[2021-11-01] MEDS: FAMOTIDINE 20 MG/2 ML VIAL IV SCH ×2 (08:18→21:17)
[2021-11-01] MEDS: CLOBETASOL PROP 0.05% CR 15GM TOPICAL SCH ×2 (08:19→21:18)
[2021-11-01] MEDS: SYMBICORT 160-4.5 MCG INHALER INHALATION SCH ×2 (09:38→20:42)
--- NOTE | 2021-11-01 10:22 | P.PN ---
Subjective Progress Note Date: 11/01/21 HISTORY OF PRESENT ILLNESS: This is a 86-year-old female with a past medical history significant for congestive heart failure, aortic stenosis, paroxysmal atrial fibrillation, obstructive sleep apnea, and COPD with home oxygen use. Patient follows in the office with Dr. Watts. We have been asked to see the patient in consultation for CHF. Patient examined at the bedside. Patient states she came to the hospital because she was extremity and shortness of breath over the past few days. The patient was found to be in CHF. She was started on IV Lasix. The patient is currently on a BiPAP with 45% FiO2. She states her breathing has improved since going to the hospital. She denies any chest pain or pressure. * Chest xray congestive heart failure with patchy atelectasis. Pulmonary congestion improved compared to last exam * Laboratory data: WBC 5.6. Hemoglobin 12.2. Platelet count 114. Sodium 137. Potassium 4.4. BUN 17. Creatinine 1.13. Troponin negative 2. ProBNP 587. * Current home cardiac medications include glucose 5 mg twice a day, Lipitor 40 mg daily, Lasix 40 mg daily, metoprolol succinate 25 mg daily, Diamox 250 mg daily * Most recent echocardiogram obtained in July 2021 revealed ejection fraction 65-70%, mild MR, mild TR * Patient had an echocardiogram completed in June 2020 revealing ejection fraction 60% with moderate aortic stenosis * Cardiac catheterization history: January 2011 revealed 30% proximal LAD stenosis 11/01/2021 Patient examined this morning at the bedside. Patient is on nasal cannula this morning. She reports improvement in her SOB. She denies chest pain or pressure. She remains on IV lasix 40mg q8 hours. Vital signs are stable. Labs from this morning are currently pending. Echocardiogram completed revealing ejection fraction 55-60%, moderate aortic stenosis, mild MR, mild TR, and moderate pulm onary hypertension PHYSICAL EXAM: VITAL SIGNS: Reviewed. GENERAL: Well-developed in no acute distress. HEENT: Head is normocephalic. Pupils are equal, round. Sclerae anicteric. Mucous membranes of the mouth are moist. Neck supple. No JVD or thyromegaly LUNGS: Respirations even and unlabored. Lungs diminished to auscultation bilaterally. HEART: Regular rate and rhythm. S1 and S2 heard. Systolic murmur noted ABDOMEN: Soft. Nondistended. Nontender. EXTREMITIES: Normal range of motion. No clubbing or cyanosis. Peripheral pulses intact. 2+ bilateral lower extremity edema NEUROLOGIC: Awake and alert. Oriented x 3. ASSESSMENT: Shortness of breath Acute on chronic congestive heart failure with preserved ejection fraction Aortic stenosis Acute on chronic hypercapnic respiratory failure COPD Obstructive sleep apnea on CPAP outpatient Proximal atrial fibrillation Hypertension Hyperlipidemia Hypothyroidism PLAN: Continue current cardiac medications Continue IV Lasix. Await labs from this morning. Accurate I&O Daily weights Monitor kidney function Further recommendations pending patient's course Nurse practitioner note has been reviewed by physician. Signing provider agrees with the documented findings, assessment, and plan of care. Objective - Vital Signs Vital signs: Vital Signs Temp 97.8 F 11/01/21 07:32 Pulse 60 11/01/21 08:40 Resp 16 11/01/21 08:40 BP 146/71 11/01/21 07:32 Pulse Ox 95 11/01/21 07:32 Intake & Output 10/31/21 11/01/21 11/01/21 18:59 06:59 18:59 Intake Total 240 220 Output Total 1000 1575 350 Balance -760 -1355 -350 Weight 122.4 kg 121 kg Intake: Oral 240 220 Output: Urine 1000 1575 350 Uretheral (Ramos) 300 Other: Voiding Method Indwelling Catheter Indwelling Catheter Indwelling Catheter - Labs CBC & Chem 7: 10/31/21 03:23 10/31/21 03:23 Labs: Abnormal Lab Results - Last 24 Hours (Table) 10/31/21 Range/Units 03:23 Free T4 <0.07 L (0.78-2.19) ng/dL
[2021-11-01 10:31] LABS: Basophils # (A) 0.01 X 10*3/uL (0.00-0.10); Basophils % (A) 0.2 %; Eosinophils # (A) 0.18 X 10*3/uL (0.04-0.35); Eosinophils % (A) 3.7 %; HCT 36.3 % (37.2-46.3); HGB 10.8 g/dL (12.0-15.0); Immature Grans, Automated 0.2 %; Lymphocytes # (A) 1.31 X 10*3/uL (0.90-5.00); MCH 30.8 pg (27.0-32.0); MCHC 29.8 g/dL (32.0-37.0); MCV 103.4 fL (80.0-97.0); Mean Platelet Volume 11.5 fL (9.5-12.2); Monocytes # (A) 0.36 X 10*3/uL (0.20-1.00); Monocytes % (A) 7.4 %; NRBC Per 100 WBC 0 /100 WBCS (0.0-0.0); Neutrophils # (A) 2.98 X 10*3/uL (1.80-7.70); Neutrophils % (A) 61.5 %; Platelet Count 118 X 10*3/uL (140-440); RBC 3.51 X 10*6/uL (4.10-5.20); RDW 16.1 % (11.5-14.5); WBC 4.85 X 10*3/uL (4.50-10.00)
[2021-11-01 10:45] LABS: African American GFR (CKD) 67.6 (60.0-200.0); Anion Gap 9.9 mmol/L (10.00-18.00); BUN/Creat Ratio 16.11 Ratio (12.00-20.00); Blood Urea Nitrogen 14.5 mg/dL (9.0-27.0); Calcium 9.3 mg/dL (8.7-10.3); Carbon Dioxide 37.1 mmol/L (20.0-27.5); Magnesium 2.3 mg/dL (1.5-2.4); Non-African American GFR(CKD) 58.3 (60.0-200.0); Potassium 3.3 mmol/L (3.5-5.5)
[2021-11-01] MEDS ORDERED: Potassium Replacement Protocol 1 EACH MISC MISCELLANE PRN ×2 (11:16→11:42)
[2021-11-01] MEDS: POTASSIUM CHLORIDE ER 20 MEQ TAB.ER PO SCH ×2 (12:27→15:23)
--- NOTE | 2021-11-01 12:46 | P.PN ---
Subjective This is a pleasant 86 years old female with past medical history of Atrial Fibrillation, on Eliquis, heart Failure, CVA/TIA, Hypertension, Pneumonia, Sleep Apnea/CPAP/BIPAP, chronic back pain, ovarian cancer, C-DIFF infection , Depression Presents because of increased confusion, shortness of breath, weakness and inability to ambulate Patient was on BiPAP in bed comfortable, information obtained with the help of the daughter Jodi at bedside As per daughter patient is on 3 L/m of oxygen at home and she is on BiPAP at night since July when she was sick. Her investment specialist is Dr. Bearden. 2 days ago patient was tired but, however yesterday she become really sick, it was so bad day for her as per daughter, she was confused, sleeping a lot, could not take her medication, she could not stand up. At baseline she walks about 15-21 feet. Then daughter noticed that she was becoming more hypoxic with oxygen dropped to 59% while on 3 L, she bumped up her oxygen to 4.5 L per minute and saturation improved to 83% as per daughter. So she called EMS for her. Patient is awake and alert, she notes she is in the current hospital in [place], she thought its 05/30/2022. And she is oriented to person as well. She denies any chest pain or dyspnea. She has her insight into her nose. She denies headache or weakness or numbness. No vomiting or diarrhea actually she is constipat she denies urinary symptoms but Doppler reports decreased urine output, She never smoked, she does not drink alcohol. Patient is hemodynamically stable, she is slightly tachypneic and 20 and hypoxic at 91% oxygen saturation on 2 L/m CBC is unremarkable, INR 1.1, arterial blood gas showing slightly low pH 7.34, high pCO2 73 and low pO2 at 60 Sodium 137, carbon dioxide elevated 39, creatinine high at 1.13, compared to baseline of 0.7-0.8 Liver enzymes not elevated, troponin negative and proBNP is low 587. Urine analysis is normal Coronavirus not detected Chest x-ray: Congestive heart failure with patchy atelectasis. Pulmonary congestion improved compared to last exam CTA from 07/2021: No pulmonary embolism. Bilateral pulmonary patchy infiltrates and atelectasis. 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 Cardiology and pulmonary team consulted. 11/01/2021 Patient is more sleepy today although she awakes to verbal and tactile stimuli and answers some questions but she looks also slow. Most likely this could be related to her hypothyroidism. Her levothyroxine was started today at 37.5 g and increased for tomorrow at 50 g daily. But because she is also on Eliquis we will order CT of the brain to rule out intracranial bleed or acute pathology. She is hemodynamically stable, her oxygen is status improved and currently she is on 4 L/m which is close to her home dose of 3 L/m. Echocardiogram showed ejection fraction of 55-60% with moderate aortic stenosis. She remains on Eliquis 5 mg, IV Lasix 40 mg twice daily. Also we put the patient on a fluid restriction 1500 mL per day. Continue with Symbicort and albuterol when necessary Objective - Vital Signs Vital signs: Vital Signs Temp 97.8 F 11/01/21 12:05 Pulse 57 L 11/01/21 12:05 Resp 16 11/01/21 12:05 BP 132/67 11/01/21 12:05 Pulse Ox 96 11/01/21 12:05 Intake & Output 10/31/21 11/01/21 11/01/21 18:59 06:59 18:59 Intake Total 240 220 Output Total 1000 1575 350 Balance -760 -1355 -350 Weight 122.4 kg 121 kg Intake: Oral 240 220 Output: Urine 1000 1575 350 Uretheral (Ramos) 300 Other: Voiding Method Indwelling Catheter Indwelling Catheter Indwelling Catheter - Exam -GENERAL: The patient is alert and oriented x3, drowsy, not in any acute distress. Well developed, well nourished. HEENT: Pupils are round and equally reacting to light. EOMI. No scleral icterus. No conjunctival pallor. Normocephalic, atraumatic. No pharyngeal erythema. No thyromegaly. CARDIOVASCULAR: S1 and S2 present. No murmurs, rubs, or gallops. PULMONARY: Chest is clear to auscultation, no wheezing or crackles. ABDOMEN: Soft, nontender, nondistended, normoactive bowel sounds. No palpable organomegaly. MUSCULOSKELETAL: No joint swelling or deformity. -EXTREMITIES: No cyanosis, clubbing,. Bilateral patellar like edema NEUROLOGICAL: Gross neurological examination did not reveal any focal deficits. SKIN: No rashes. no petechiae. - Labs CBC & Chem 7: 11/01/21 06:08 11/01/21 06:08 Labs: Abnormal Lab Results - Last 24 Hours (Table) 11/01/21 11/01/21 Range/Units 06:08 06:08 RBC 3.51 L (4.10-5.20) X 10*6/uL Hgb 10.8 L (12.0-15.0) g/dL Hct 36.3 L (37.2-46.3) % MCV 103.4 H (80.0-97.0) fL MCHC 29.8 L (32.0-37.0) g/dL RDW 16.1 H (11.5-14.5) % Plt Count 118 L (140-440) X 10*3/uL Potassium 3.3 L (3.5-5.5) mmol/L Carbon Dioxide 37.1 H (20.0-27.5) mmol/L Anion Gap 9.90 L (10.00-18.00) mmol/L Est GFR (CKD-EPI)NonAf 58.3 L (60.0-200.0) Assessment and Plan Assessment: Acute hypoxic hypercapnic respiratory failure Hypothyroidism Acute on chronic Diastolic CHF, EF 55-60% Acute on chronic hypoxic respiratory failure, improving Acute COPD exacerbation possible obesity hypoventilation syndrome Mild acute kidney injury Paroxysmal atrial fibrillation on Eliquis Heart failure history of cough with infection a few months ago History of CVA/TIA Hypertension History of sleep apnea Chronic back pain History of ovarian cancer History of depression, not in active tissue Morbid obesity with BMI of 48.5 Plan: This is a pleasant 86 years old female who presents with acute dyspnea and bilateral pulmonary infiltrate. Patient has already started on IV Lasix and continue with inhaled steroids and bronchodilators and oxygen as needed. Continue with BiPAP as needed Start levothyroxine 50 g Monitor creatinine and electrolyte Cardiology and pulmonary consult check a bladder scan Labs and medication were reviewed.. Continue same treatment. Continue with symptomatic treatment. Resume home medication. Monitor lytes and vitals. DVT and GI prophylaxis. Further recommendations depends on the clinical course of the patient DVT prophylaxis: Eliquis GI Prophylaxis: Pepcid PT/OT: Recommended subacute rehab, social service technician on the case Prognosis is guarded
--- NOTE | 2021-11-01 13:48 | CT ---
EXAMINATION TYPE: CT brain wo con DATE OF EXAM: 11/01/2021 COMPARISON: 08/21/2021 HISTORY: Drowsiness, Hypoxia, Respiratory Failure CT DLP: 1251 mGycm Automated exposure control for dose reduction was used. FINDINGS: The ventricles, basal cisterns and sulci over the convexities are mildly enlarged consistent with mil d atrophy appropriate for the patient's age. There is mild decreased density in the periventricular w chun matter consistent with mild ischemic white matter demyelination. There is no acute intra or extra-axial hemorrhage. There is no mass effect or shift of the midline st ructures. There are craniotomy defects involving the left parietal-occipital areas and there is a large area of encephalomalacia involving the left cerebellar hemisphere. These changes were seen on the prior stud y and are stable. The intraorbital contents appear normal and symmetric. Visualized paranasal sinuses are well aerated. There is mild fluid in the left mastoid air cells which was not present on the prior study. IMPRESSION: 1. No change in the left cerebellar encephalomalacia 2. No change in the craniotomy defects the left occipital and parietal region 3. no acute bleed or mass effect. 4. Interval development of mild fluid within the left mastoid air cells.
--- NOTE | 2021-11-01 14:29 | P.PN ---
Subjective Progress Note Date: 11/01/21 On today's evaluation of 11/01/2021, the patient is sitting up on a recliner that she has her family members at the bedside. Doing well. No specific complaints. Much more awake. At times slightly confused with her mentation is improved and the patient is easily arousable and she is able to hold a conv ersation. She was on a BiPAP throughout the night and currently she is off the BiPAP. The patient is being diuresis with IV Lasix and the patient is doing much better and the patient is at least 2-1/2 L negative fluid balance over the past 24 hours. She is currently receiving Lasix 40 mg IV every 8 hours. No new complaints. Lower extremity edema still present. She is still having crackles in the mid and lower lung person bilaterally. Nevertheless, her breathing is improved and she is less short of breath compared to yesterday. She has a home BiPAP unit. Her current BiPAP in the hospital is set at a pressure of 12/5 cm of water with an FiO2 of 45%. Her morning blood work showed a white cell count of 4.8 with hemoglobin of 10.8. Sodium is at 144 with a potassium level of 3.3 and a BUN is at 40 with a creatinine of 0.9 and troponins have been negative and the patient's proBNP level is at 562. Influenza A and B are negative. COVID 19 testing is been negative. BNP is a 14 with a creatinine of 0.9 no signs of any CO2 narcosis this point in time. The blood gases from time of admission from 10/31/2021 showed a pH of 7.34 with a pCO2 of 73 and pO2 of 60. This was on FiO2 of 45%, possibly on a BiPAP. Objective - Vital Signs Vital signs: Vital Signs Temp 97.8 F 11/01/21 12:05 Pulse 57 L 11/01/21 12:05 Resp 16 11/01/21 12:05 BP 132/67 11/01/21 12:05 Pulse Ox 96 11/01/21 12:05 Intake & Output 10/31/21 11/01/21 11/01/21 18:59 06:59 18:59 Intake Total 240 220 Output Total 1000 1575 350 Balance -760 -7994 -350 Weight 122.4 kg 121 kg Intake: Oral 240 220 Output: Urine 1000 1575 350 Uretheral (Ramos) 300 Other: Voiding Method Indwelling Catheter Indwelling Catheter Indwelling Catheter - Exam GENERAL EXAM: Alert, pleasant 86-year-old female patient, on oxygen at 4 L of the patient is currently off the BiPAP HEAD: Normocephalic. EYES: Normal reaction of pupils, equal size. NOSE: Clear with pink turbinates. THROAT: No erythema or exudates. NECK: No masses, no JVD. CHEST: No chest wall deformity. LUNGS: Equal air entry with crackles in the bilateral bases CVS: S1 and S2 normal with no audible murmur, regular rhythm. ABDOMEN: No hepatosplenomegaly, normal bowel sounds, no guarding or rigidity. SPINE: No scoliosis or deformity SKIN: No rashes CENTRAL NERVOUS SYSTEM: No focal deficits, tone is normal in all 4 extremities. EXTREMITIES: There is 1-2+ peripheral edema. No clubbing, no cyanosis. Peripheral pulses are intact. - Labs CBC & Chem 7: 11/01/21 06:08 11/01/21 06:08 Labs: Abnormal Lab Results - Last 24 Hours (Table) 11/01/21 11/01/21 Range/Units 06:08 06:08 RBC 3.51 L (4.10-5.20) X 10*6/uL Hgb 10.8 L (12.0-15.0) g/dL Hct 36.3 L (37.2-46.3) % MCV 103.4 H (80.0-97.0) fL MCHC 29.8 L (32.0-37.0) g/dL RDW 16.1 H (11.5-14.5) % Plt Count 118 L (140-440) X 10*3/uL Potassium 3.3 L (3.5-5.5) mmol/L Carbon Dioxide 37.1 H (20.0-27.5) mmol/L Anion Gap 9.90 L (10.00-18.00) mmol/L Est GFR (CKD-EPI)NonAf 58.3 L (60.0-200.0) Assessment and Plan Assessment: Acute on chronic hypoxemic respiratory failure secondary to an acute exacerbation of diastolic congestive heart failure. The patient had some signs of CO2 narcosis. Improved with the use of BiPAP and the patient is being actively diuresed. She has typical features of obstructive sleep apnea/obesity hypoventilation syndrome and right-sided failure. The patient also has a moderate degree of aortic stenosis based on echocardiogram and is of limited images done on 10/31/2021. Note that the patient also has hypertensive heart disease with severe concentric LVH along with moderately S, moderate MR and the PA pressures are not been accurately estimated. Acute on chronic hypercapnic respiratory failure secondary to above Chronic obstructive pulmonary disease normally on home oxygen at 3 L/m Obstructive sleep apnea, on CPAP at 13 cm of water with oxygen at 3 L based on that titration. 2 years back. Nevertheless the patient claims that she has a BiPAP machine. Morbid obesity, BMI 48.5 kg per metered squared Atrial fibrillation Moderate degree of aortic stenosis Hypertensive heart disease with concentric LVH, severe/contributing to diastolic heart failure Hypertension Hyperlipidemia Hypothyroidism Plan: Continue diuresis with IV Lasix Patient is already negative fluid balance Clinically improving and the patient will be kept on BiPAP for now intermittently during the day and continuously at nighttime Drinker on BiPAP machine from home for us to check monitor electrolytes Monitor renal function we'll continue to follow make further recommendations based on her progress. Clinically improving. No active signs of CO2 narcosis. Mentally improved.
[2021-11-01] MEDS: DULoxetine HCL 20 MG CAPSULE.DR PO SCH (21:17)
[2021-11-01] MEDS: ATORVASTATIN 40 MG TAB PO SCH (21:17)
[2021-11-02] MEDS: PREGABALIN 75 MG CAP PO SCH ×3 (05:50→21:43)
[2021-11-02] MEDS: LEVOTHYROXINE 50 MCG TAB PO SCH (05:51)
[2021-11-02] MEDS: FUROSEMIDE 10 MG/ML 4 ML VIAL IV SCH ×3 (05:51→21:43)
--- NOTE | 2021-11-02 07:15 | XR ---
EXAMINATION TYPE: XR chest 1V portable DATE OF EXAM: 11/02/2021 6:57 AM COMPARISON:Chest radiograph from two days prior. CT chest 07/28/2021. TECHNIQUE: XR chest 1V portable Frontal view of the chest. CLINICAL INDICATION:Female, 86 years old with history of shortness of breath; FINDINGS: Lungs/Pleura: Persistent streaky atelectasis within the mid lungs. The thorax. No pleural effusion. T he remaining which windows of the lingula Pulmonary vascularity: Unremarkable. Heart/mediastinum: Cardiomediastinal silhouette is enlarged and stable. Musculoskeletal: No acute osseous pathology. IMPRESSION: 1. No significant change in bilateral streaky atelectasis in the lungs. 2. Similar cardiomegaly.
[2021-11-02] MEDS: SYMBICORT 160-4.5 MCG INHALER INHALATION SCH ×2 (09:09→19:56)
[2021-11-02] MEDS: APIXABAN 5 MG TAB PO SCH ×2 (10:00→21:43)
[2021-11-02] MEDS: METOPROLOL SUCCINATE (ER) 25 MG TAB.ER.24H PO SCH (10:01)
[2021-11-02] MEDS: CLOBETASOL PROP 0.05% CR 15GM TOPICAL SCH ×2 (10:01→21:43)
[2021-11-02] MEDS: FAMOTIDINE 20 MG TAB PO SCH (10:01)
[2021-11-02] MEDS ORDERED: DOCUSATE 100 MG CAP PO PRN (11:10)
[2021-11-02 11:27] LABS: Basophils # (A) 0.02 X 10*3/uL (0.00-0.10); Basophils % (A) 0.5 %; Eosinophils # (A) 0.18 X 10*3/uL (0.04-0.35); Eosinophils % (A) 4.3 %; HGB 10.5 g/dL (12.0-15.0); Immature Grans, Automated 0 %; Lymphocytes # (A) 1.24 X 10*3/uL (0.90-5.00); Lymphocytes % (A) 29.8 %; MCH 30.6 pg (27.0-32.0); MCHC 29.2 g/dL (32.0-37.0); Mean Platelet Volume 11.4 fL (9.5-12.2); Monocytes # (A) 0.33 X 10*3/uL (0.20-1.00); Monocytes % (A) 7.9 %; NRBC Per 100 WBC 0 /100 WBCS (0.0-0.0); Neutrophils # (A) 2.39 X 10*3/uL (1.80-7.70); Neutrophils % (A) 57.5 %; Platelet Count 123 X 10*3/uL (140-440); RBC 3.43 X 10*6/uL (4.10-5.20); RDW 16.2 % (11.5-14.5); WBC 4.16 X 10*3/uL (4.50-10.00)
[2021-11-02 11:37] LABS: African American GFR (CKD) 67.6 (60.0-200.0); Anion Gap 8.7 mmol/L (10.00-18.00); BUN/Creat Ratio 15.67 Ratio (12.00-20.00); Blood Urea Nitrogen 14.1 mg/dL (9.0-27.0); Carbon Dioxide 39.3 mmol/L (20.0-27.5); Magnesium 2.2 mg/dL (1.5-2.4); Non-African American GFR(CKD) 58.3 (60.0-200.0); Potassium 3.4 mmol/L (3.5-5.5)
--- NOTE | 2021-11-02 12:40 | P.PN ---
Subjective Progress Note Date: 11/02/21 HISTORY OF PRESENT ILLNESS: This is a 86-year-old female with a past medical history significant for congestive heart failure, aortic stenosis, paroxysmal atrial fibrillation, obstructive sleep apnea, and COPD with home oxygen use. Patient follows in the office with Dr. Watts. We have been asked to see the patient in consultation for CHF. Patient examined at the bedside. Patient states she came to the hospital because she was extremity and shortness of breath over the past few days. The patient was found to be in CHF. She was started on IV Lasix. The patient is currently on a BiPAP with 45% FiO2. She states her breathing has improved since going to the hospital. She denies any chest pain or pressure. * Chest xray congestive heart failure with patchy atelectasis. Pulmonary congestion improved compared to last exam * Laboratory data: WBC 5.6. Hemoglobin 12.2. Platelet count 114. Sodium 137. Potassium 4.4. BUN 17. Creatinine 1.13. Troponin negative 2. ProBNP 587. * Current home cardiac medications include glucose 5 mg twice a day, Lipitor 40 mg daily, Lasix 40 mg daily, metoprolol succinate 25 mg daily, Diamox 250 mg daily * Most recent echocardiogram obtained in July 2021 revealed ejection fraction 65-70%, mild MR, mild TR * Patient had an echocardiogram completed in June 2020 revealing ejection fraction 60% with moderate aortic stenosis * Cardiac catheterization history: January 2011 revealed 30% proximal LAD stenosis 11/01/2021 Patient examined this morning at the bedside. Patient is on nasal cannula this morning. She reports improvement in her SOB. She denies chest pain or pressure. She remains on IV lasix 40mg q8 hours. Vital signs are stable. Labs from this morning are currently pending. Echocardiogram completed revealing ejection fraction 55-60%, moderate aortic stenosis, mild MR, mild TR, and moderate pulm onary hypertension 11/02/2021 Patient denies any new concerns. Repeat potassium is 3.4 will be replaced. Hemoglobin at 10.5, platelet count 123. She is continued on Lasix 40 mg IV every 12 hours. PHYSICAL EXAM: VITAL SIGNS: Reviewed. GENERAL: Well-developed in no acute distress. HEENT: Head is normocephalic. Pupils are equal, round. Sclerae anicteric. Mucous membranes of the mouth are moist. Neck supple. No JVD or thyromegaly LUNGS: Respirations even and unlabored. Lungs diminished to auscultation bilaterally. HEART: Regular rate and rhythm. S1 and S2 heard. Systolic murmur noted ABDOMEN: Soft. Nondistended. Nontender. EXTREMITIES: Normal range of motion. No clubbing or cyanosis. Peripheral pulses intact. 2+ bilateral lower extremity edema NEUROLOGIC: Awake and alert. Oriented x 3. ASSESSMENT: Shortness of breath Acute on chronic diastolic heart failure with preserved ejection fraction Aortic stenosis Acute on chronic hypercapnic respiratory failure COPD Obstructive sleep apnea on CPAP outpatient Proximal atrial fibrillation Hypertension Hyperlipidemia Hypothyroidism PLAN: Continue current cardiac medications Continue IV Lasix. Accurate I&O Daily weights Monitor kidney function Further recommendations pending patient's course Nurse practitioner note has been reviewed by physician. Signing provider agrees with the documented findings, assessment, and plan of care. Objective - Vital Signs Vital signs: Vital Signs Temp 97.6 F 11/02/21 05:00 Pulse 50 L 11/02/21 05:00 Resp 18 11/02/21 05:00 BP 124/70 11/02/21 05:00 Pulse Ox 97 11/02/21 05:00 Intake & Output 11/01/21 11/02/21 11/02/21 18:59 06:59 18:59 Intake Total 280 400 Output Total 1900 1300 Balance -1620 -900 Weight 114 kg Intake: Oral 240 400 Tube Feeding 40 Output: Urine 1900 1300 Other: Voiding Method Indwelling Catheter Indwelling Catheter - Labs CBC & Chem 7: 11/02/21 07:05 11/02/21 07:05 Labs: Abnormal Lab Results - Last 24 Hours (Table) 11/01/21 11/01/21 Range/Units 06:08 06:08 RBC 3.51 L (4.10-5.20) X 10*6/uL Hgb 10.8 L (12.0-15.0) g/dL Hct 36.3 L (37.2-46.3) % MCV 103.4 H (80.0-97.0) fL MCHC 29.8 L (32.0-37.0) g/dL RDW 16.1 H (11.5-14.5) % Plt Count 118 L (140-440) X 10*3/uL Potassium 3.3 L (3.5-5.5) mmol/L Carbon Dioxide 37.1 H (20.0-27.5) mmol/L Anion Gap 9.90 L (10.00-18.00) mmol/L Est GFR (CKD-EPI)NonAf 58.3 L (60.0-200.0)
--- NOTE | 2021-11-02 13:13 | P.PN ---
Subjective Progress Note Date: 11/02/21 On today's evaluation of 11/01/2021, the patient is sitting up on a recliner that she has her family members at the bedside. Doing well. No specific complaints. Much more awake. At times slightly confused with her mentation is improved and the patient is easily arousable and she is able to hold a conv ersation. She was on a BiPAP throughout the night and currently she is off the BiPAP. The patient is being diuresis with IV Lasix and the patient is doing much better and the patient is at least 2-1/2 L negative fluid balance over the past 24 hours. She is currently receiving Lasix 40 mg IV every 8 hours. No new complaints. Lower extremity edema still present. She is still having crackles in the mid and lower lung person bilaterally. Nevertheless, her breathing is improved and she is less short of breath compared to yesterday. She has a home BiPAP unit. Her current BiPAP in the hospital is set at a pressure of 12/5 cm of water with an FiO2 of 45%. Her morning blood work showed a white cell count of 4.8 with hemoglobin of 10.8. Sodium is at 144 with a potassium level of 3.3 and a BUN is at 40 with a creatinine of 0.9 and troponins have been negative and the patient's proBNP level is at 562. Influenza A and B are negative. COVID 19 testing is been negative. BNP is a 14 with a creatinine of 0.9 no signs of any CO2 narcosis this point in time. The blood gases from time of admission from 10/31/2021 showed a pH of 7.34 with a pCO2 of 73 and pO2 of 60. This was on FiO2 of 45%, possibly on a BiPAP. On 11/02/2021, the patient is diuresing the patient is losing weight. The patient is orally lost another 2 L since yesterday in terms of negative fluid balance and her weight is also down. She remains on Lasix 40 L IV every 12 hours. No new complaints. I checked the machine and the patient had at home and this turned out to be a ResMed I VAPS unit which is set at a tidal volume of 450 EPAP minimum of 6 and a maximum of 16 with a pressure support of 4.. The hospital, the patient utilizing hour on BiPAP at a pressure of 12/6 cm of water. The white cell count is at 4.1 with a hemoglobin of 7.5. BNP is at 40 with a creatinine 0.7 the serum bicarbonate at 39. No signs of any CO2 narcosis. No chest pain. No angina. No palpitations. Improving lower extremity edema. Objective - Vital Signs Vital signs: Vital Signs Temp 98.2 F 11/02/21 11:41 Pulse 62 11/02/21 11:41 Resp 14 11/02/21 11:41 BP 129/72 11/02/21 11:41 Pulse Ox 97 11/02/21 05:00 Intake & Output 11/01/21 11/02/21 11/02/21 18:59 06:59 18:59 Intake Total 280 400 Output Total 1900 1300 700 Balance -1620 900 -700 Weight 114 kg Intake: Oral 240 400 Tube Feeding 40 Output: Urine 1900 1300 700 Other: Voiding Method Indwelling Catheter Indwelling Catheter Indwelling Catheter # Bowel Movements 1 - Exam GENERAL EXAM: Alert, pleasant 86-year-old female patient, on oxygen at 4 L of the patient is currently off the BiPAP HEAD: Normocephalic. EYES: Normal reaction of pupils, equal size. NOSE: Clear with pink turbinates. THROAT: No erythema or exudates. NECK: No masses, no JVD. CHEST: No chest wall deformity. LUNGS: Equal air entry with crackles in the bilateral bases CVS: S1 and S2 normal with no audible murmur, regular rhythm. ABDOMEN: No hepatosplenomegaly, normal bowel sounds, no guarding or rigidity. SPINE: No scoliosis or deformity SKIN: No rashes CENTRAL NERVOUS SYSTEM: No focal deficits, tone is normal in all 4 extremities. EXTREMITIES: There is 1-2+ peripheral edema. No clubbing, no cyanosis. Pe ripheral pulses are intact. - Labs CBC & Chem 7: 11/02/21 07:05 11/02/21 07:05 Labs: Abnormal Lab Results - Last 24 Hours (Table) 11/02/21 11/02/21 Range/Units 07:05 07:05 WBC 4.16 L (4.50-10.00) X 10*3/uL RBC 3.43 L (4.10-5.20) X 10*6/uL Hgb 10.5 L (12.0-15.0) g/dL Hct 36.0 L (37.2-46.3) % MCV 105.0 H (80.0-97.0) fL MCHC 29.2 L (32.0-37.0) g/dL RDW 16.2 H (11.5-14.5) % Plt Count 123 L (140-440) X 10*3/uL Potassium 3.4 L (3.5-5.5) mmol/L Carbon Dioxide 39.3 H (20.0-27.5) mmol/L Anion Gap 8.70 L (10.00-18.00) mmol/L Est GFR (CKD-EPI)NonAf 58.3 L (60.0-200.0) Assessment and Plan Assessment: Acute on chronic hypoxemic respiratory failure secondary to an acute exacerbation of diastolic congestive heart failure. The patient had some signs of CO2 narcosis. Improved with the use of BiPAP and the patient is being actively diuresed. She has typical features of obstructive sleep apnea/obesity hypoventilation syndrome and right-sided failure. The patient also has a moderate degree of aortic stenosis based on echocardiogram and is of limited images done on 10/31/2021. Note that the patient also has hypertensive heart disease with severe concentric LVH along with moderately S, moderate MR and the PA pressures are not been accurately estimated. Acute on chronic hypercapnic respiratory failure secondary to above Chronic obstructive pulmonary disease normally on home oxygen at 3 L/m Obstructive sleep apnea, on CPAP at 13 cm of water with oxygen at 3 L based on that titration. 2 years back. Nevertheless the patient claims that she has a BiPAP machine. Morbid obesity, BMI 48.5 kg per metered squared Atrial fibrillation Moderate degree of aortic stenosis Hypertensive heart disease with concentric LVH, severe/contributing to diastolic heart failure Hypertension Hyperlipidemia Hypothyroidism Plan: Continue diuresis with IV Lasix, the patient remains in a negative fluid balance Patient is already negative fluid balance There is some mild chronic metabolic alkalosis with a serum bicarb of 39 Clinically improving and the patient will be kept on BiPAP for now in termittently during the day and continuously at nighttime I checked a machine and this was an IVAPS Monitor renal function we'll continue to follow make further recommendations based on her progress. Clinically improving. No active signs of CO2 narcosis. Mentally improved.
--- NOTE | 2021-11-02 20:18 | P.PN ---
Subjective This is a pleasant 86 years old female with past medical history of Atrial Fibrillation, on Eliquis, heart Failure, CVA/TIA, Hypertension, Pneumonia, Sleep Apnea/CPAP/BIPAP, chronic back pain, ovarian cancer, C-DIFF infection , Depression Presents because of increased confusion, shortness of breath, weakness and inability to ambulate Patient was on BiPAP in bed comfortable, information obtained with the help of the daughter Jodi at bedside As per daughter patient is on 3 L/m of oxygen at home and she is on BiPAP at night since July when she was sick. Her mobile device engineer is Dr. Bearden. 2 days ago patient was tired but, however yesterday she become really sick, it was so bad day for her as per daughter, she was confused, sleeping a lot, could not take her medication, she could not stand up. At baseline she walks about 15-21 feet. Then daughter noticed that she was becoming more hypoxic with oxygen dropped to 59% while on 3 L, she bumped up her oxygen to 4.5 L per minute and saturation improved to 83% as per daughter. So she called EMS for her. Patient is awake and alert, she notes she is in the current hospital in [place], she thought its 05/30/2022. And she is oriented to person as well. She denies any chest pain or dyspnea. She has her insight into her nose. She denies headache or weakness or numbness. No vomiting or diarrhea actually she is constipat she denies urinary symptoms but Doppler reports decreased urine output, She never smoked, she does not drink alcohol. Patient is hemodynamically stable, she is slightly tachypneic and 20 and hypoxic at 91% oxygen saturation on 2 L/m CBC is unremarkable, INR 1.1, arterial blood gas showing slightly low pH 7.34, high pCO2 73 and low pO2 at 60 Sodium 137, carbon dioxide elevated 39, creatinine high at 1.13, compared to baseline of 0.7-0.8 Liver enzymes not elevated, troponin negative and proBNP is low 587. Urine analysis is normal Coronavirus not detected Chest x-ray: Congestive heart failure with patchy atelectasis. Pulmonary congestion improved compared to last exam CTA from 07/2021: No pulmonary embolism. Bilateral pulmonary patchy infiltrates and atelectasis. 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 Cardiology and pulmonary team consulted. 11/01/2021 Patient is more sleepy today although she awakes to verbal and tactile stimuli and answers some questions but she looks also slow. Most likely this could be related to her hypothyroidism. Her levothyroxine was started today at 37.5 g and increased for tomorrow at 50 g daily. But because she is also on Eliquis we will order CT of the brain to rule out intracranial bleed or acute pathology. She is hemodynamically stable, her oxygen is status improved and currently she is on 4 L/m which is close to her home dose of 3 L/m. Echocardiogram showed ejection fraction of 55-60% with moderate aortic stenosis. She remains on Eliquis 5 mg, IV Lasix 40 mg twice daily. Also we put the patient on a fluid restriction 1500 mL per day. Continue with Symbicort and albuterol when necessary 11/02/2021 Patient is more awake and interactive today. She has better appetite. She denies any specific symptoms. No dyspnea or tachypnea while sitting in bed most of the time. Minimal cough and no chest pain, no GI or urinary symptoms. Chest x-ray showing atelectasis and cardiomegaly. Labs showing mild pancytopenia with WBC 4.1, hemoglobin 10.3 and platelet count 123. She remains on a fluid restriction. She remains on IV Lasix 40 mg twice daily. Extremities on levothyroxine 50 units. We will check thyroid function test and B12 and folate. Objective - Vital Signs Vital signs: Vital Signs Temp 97.8 F 11/02/21 19:01 Pulse 53 L 11/02/21 19:01 Resp 18 11/02/21 19:22 BP 113/60 11/02/21 19:01 Pulse Ox 92 L 11/02/21 19:01 Intake & Output 11/02/21 11/02/21 11/03/21 06:59 18:59 06:59 Intake Total 400 240 Output Total 1300 1400 Balance -900 -1160 Weight 114 kg Intake: Oral 400 240 Output: Urine 1300 1400 Other: Voiding Method Indwelling Catheter Indwelling Catheter Indwelling Catheter # Bowel Movements 1 - Exam -GENERAL: The patient is alert and oriented x3, drowsy, not in any acute distress. Well developed, well nourished. HEENT: Pupils are round and equally reacting to light. EOMI. No scleral icterus. No conjunctival pallor. Normocephalic, atraumatic. No pharyngeal erythema. No thyromegaly. CARDIOVASCULAR: S1 and S2 present. No murmurs, rubs, or gallops. PULMONARY: Chest is clear to auscultation, no wheezing or crackles. ABDOMEN: Soft, nontender, nondistended, normoactive bowel sounds. No palpable organomegaly. MUSCULOSKELETAL: No joint swelling or deformity. -EXTREMITIES: No cyanosis, clubbing,. Bilateral patellar like edema NEUROLOGICAL: Gross neurological examination did not reveal any focal deficits. SKIN: No rashes. no petechiae. - Labs CBC & Chem 7: 11/02/21 07:05 11/02/21 07:05 Labs: Abnormal Lab Results - Last 24 Hours (Table) 11/02/21 11/02/21 Range/Units 07:05 07:05 WBC 4.16 L (4.50-10.00) X 10*3/uL RBC 3.43 L (4.10-5.20) X 10*6/uL Hgb 10.5 L (12.0-15.0) g/dL Hct 36.0 L (37.2-46.3) % MCV 105.0 H (80.0-97.0) fL MCHC 29.2 L (32.0-37.0) g/dL RDW 16.2 H (11.5-14.5) % Plt Count 123 L (140-440) X 10*3/uL Potassium 3.4 L (3.5-5.5) mmol/L Carbon Dioxide 39.3 H (20.0-27.5) mmol/L Anion Gap 8.70 L (10.00-18.00) mmol/L Est GFR (CKD-EPI)NonAf 58.3 L (60.0-200.0) Assessment and Plan Assessment: Acute hypoxic hypercapnic respiratory failure Hypothyroidism Acute on chronic Diastolic CHF, EF 55-60% Acute on chronic hypoxic respiratory failure, improving Acute COPD exacerbation possible obesity hypoventilation syndrome Mild acute kidney injury Paroxysmal atrial fibrillation on Eliquis Heart failure history of cough with infection a few months ago History of CVA/TIA Hypertension History of sleep apnea Chronic back pain History of ovarian cancer History of depression, not in active tissue Morbid obesity with BMI of 48.5 Plan: This is a pleasant 86 years old female who presents with acute dyspnea and bilateral pulmonary infiltrate. Patient has already started on IV Lasix and continue with inhaled steroids and bronchodilators and oxygen as needed. Continue with BiPAP as needed Start levothyroxine 50 g Monitor creatinine and electrolyte Cardiology and pulmonary consult check a bladder scan Labs and medication were reviewed.. Continue same treatment. Continue with symptomatic treatment. Resume home medication. Monitor lytes and vitals. DVT and GI prophylaxis. Further recommendations depends on the clinical course of the patient DVT prophylaxis: Eliquis GI Prophylaxis: Pepcid PT/OT: Recommended subacute rehab, social insurance adviser on the case Prognosis is guarded
[2021-11-02] MEDS: DULoxetine HCL 20 MG CAPSULE.DR PO SCH (21:43)
[2021-11-02] MEDS: ATORVASTATIN 40 MG TAB PO SCH (21:43)
[2021-11-03] MEDS: PREGABALIN 75 MG CAP PO SCH ×3 (05:49→21:55)
[2021-11-03] MEDS: LEVOTHYROXINE 50 MCG TAB PO SCH (05:50)
[2021-11-03] MEDS: SYMBICORT 160-4.5 MCG INHALER INHALATION SCH ×2 (07:33→19:22)
[2021-11-03] MEDS: FUROSEMIDE 10 MG/ML 4 ML VIAL IV SCH ×2 (09:48→21:55)
[2021-11-03] MEDS: CLOBETASOL PROP 0.05% CR 15GM TOPICAL SCH ×2 (09:49→20:18)
[2021-11-03] MEDS: FAMOTIDINE 20 MG TAB PO SCH (09:49)
[2021-11-03] MEDS: METOPROLOL SUCCINATE (ER) 25 MG TAB.ER.24H PO SCH (09:49)
[2021-11-03] MEDS: APIXABAN 5 MG TAB PO SCH ×2 (09:49→20:17)
[2021-11-03 11:37] LABS: Basophils # (A) 0.01 X 10*3/uL (0.00-0.10); Basophils % (A) 0.2 %; Eosinophils # (A) 0.15 X 10*3/uL (0.04-0.35); Eosinophils % (A) 3.7 %; HCT 37.5 % (37.2-46.3); HGB 11.2 g/dL (12.0-15.0); Immature Grans, Automated 0.2 %; Lymphocytes # (A) 1.11 X 10*3/uL (0.90-5.00); Lymphocytes % (A) 27.5 %; MCH 31.3 pg (27.0-32.0); MCHC 29.9 g/dL (32.0-37.0); MCV 104.7 fL (80.0-97.0); Mean Platelet Volume 11.7 fL (9.5-12.2); Monocytes % (A) 7.4 %; NRBC Per 100 WBC 0 /100 WBCS (0.0-0.0); Neutrophils # (A) 2.45 X 10*3/uL (1.80-7.70); Platelet Count 120 X 10*3/uL (140-440); RBC 3.58 X 10*6/uL (4.10-5.20); RDW 16.1 % (11.5-14.5); WBC 4.03 X 10*3/uL (4.50-10.00)
[2021-11-03 12:04] LABS: African American GFR (CKD) 81.1 (60.0-200.0); BUN/Creat Ratio 17.57 Ratio (12.00-20.00); Blood Urea Nitrogen 13.6 mg/dL (9.0-27.0); Calcium 9.1 mg/dL (8.7-10.3); Carbon Dioxide 36.7 mmol/L (20.0-27.5); Chloride 94 mmol/L (96-109); Glucose 88 mg/dL (70-110); Magnesium 2.2 mg/dL (1.5-2.4); Potassium 2.9 mmol/L (3.5-5.5); Sodium 143 mmol/L (135-145)
--- NOTE | 2021-11-03 12:57 | P.PN ---
Subjective Progress Note Date: 11/03/21 HISTORY OF PRESENT ILLNESS: This is a 86-year-old female with a past medical history significant for congestive heart failure, aortic stenosis, paroxysmal atrial fibrillation, obstructive sleep apnea, and COPD with home oxygen use. Patient follows in the office with Dr. Watts. We have been asked to see the patient in consultation for CHF. Patient examined at the bedside. Patient states she came to the hospital because she was extremity and shortness of breath over the past few days. The patient was found to be in CHF. She was started on IV Lasix. The patient is currently on a BiPAP with 45% FiO2. She states her breathing has improved since going to the hospital. She denies any chest pain or pressure. * Chest xray congestive heart failure with patchy atelectasis. Pulmonary congestion improved compared to last exam * Laboratory data: WBC 5.6. Hemoglobin 12.2. Platelet count 114. Sodium 137. Potassium 4.4. BUN 17. Creatinine 1.13. Troponin negative 2. ProBNP 587. * Current home cardiac medications include glucose 5 mg twice a day, Lipitor 40 mg daily, Lasix 40 mg daily, metoprolol succinate 25 mg daily, Diamox 250 mg daily * Most recent echocardiogram obtained in July 2021 revealed ejection fraction 65-70%, mild MR, mild TR * Patient had an echocardiogram completed in June 2020 revealing ejection fraction 60% with moderate aortic stenosis * Cardiac catheterization history: January 2011 revealed 30% proximal LAD stenosis 11/01/2021 Patient examined this morning at the bedside. Patient is on nasal cannula this morning. She reports improvement in her SOB. She denies chest pain or pressure. She remains on IV lasix 40mg q8 hours. Vital signs are stable. Labs from this morning are currently pending. Echocardiogram completed revealing ejection fraction 55-60%, moderate aortic stenosis, mild MR, mild TR, and moderate pulm onary hypertension 11/02/2021 Patient denies any new concerns. Repeat potassium is 3.4 will be replaced. Hemoglobin at 10.5, platelet count 123. She is continued on Lasix 40 mg IV every 12 hours. 11/03/2021 Patient is currently on CPAP. She has been on IV Lasix 40 mg every 12 hours with good urine output, Ramos catheter in place. Repeat blood work reveals potassium of 2.9 which will be replaced, BUN 13 and creatinine 0.8. Hemoglobin 11.2. TSH is 70.2 and free T4 0.120. Patient has been started on levothyroxine by attending. PHYSICAL EXAM: VITAL SIGNS: Reviewed. GENERAL: Well-developed in no acute distress. HEENT: Head is normocephalic. Pupils are equal, round. Sclerae anicteric. Mucous membranes of the mouth are moist. Neck supple. No JVD or thyromegaly LUNGS: Respirations even and unlabored. Lungs diminished to auscultation bilaterally. HEART: Regular rate and rhythm. S1 and S2 heard. Systolic murmur noted ABDOMEN: Soft. Nondistended. Nontender. EXTREMITIES: Normal range of motion. No clubbing or cyanosis. Peripheral pulses intact. 2+ bilateral lower extremity edema NEUROLOGIC: Awake and alert. Oriented x 3. ASSESSMENT: Shortness of breath Acute on chronic diastolic heart failure with preserved ejection fraction Aortic stenosis Acute on chronic hypercapnic respiratory failure COPD Obstructive sleep apnea on CPAP outpatient Proximal atrial fibrillation Hypertension Hyperlipidemia Hypothyroidism PLAN: Continue current cardiac medications Continue IV Lasix. Accurate I&O Daily weights Monitor kidney function Replace potassium Repeat chest x-ray in the morning Further recommendations pending patient's course Nurse practitioner note has been reviewed by physician. Signing provider agrees with the documented findings, assessment, and plan of care. Objective - Vital Signs Vital signs: Vital Signs Temp 97.9 F 11/03/21 05:52 Pulse 58 L 11/03/21 05:52 Resp 16 11/03/21 05:52 BP 117/61 11/03/21 05:52 Pulse Ox 92 L 11/03/21 05:52 Intake & Output 11/02/21 11/03/21 11/03/21 18:59 06:59 18:59 Intake Total 240 Output Total 1400 950 Balance -1160 -950 Weight 114 kg Intake: Oral 240 Output: Urine 1400 950 Other: Voiding Method Indwelling Catheter Indwelling Catheter # Bowel Movements 1 - Labs CBC & Chem 7: 11/03/21 07:17 11/03/21 07:17 Labs: Abnormal Lab Results - Last 24 Hours (Table) 11/02/21 11/02/21 Range/Units 07:05 07:05 WBC 4.16 L (4.50-10.00) X 10*3/uL RBC 3.43 L (4.10-5.20) X 10*6/uL Hgb 10.5 L (12.0-15.0) g/dL Hct 36.0 L (37.2-46.3) % MCV 105.0 H (80.0-97.0) fL MCHC 29.2 L (32.0-37.0) g/dL RDW 16.2 H (11.5-14.5) % Plt Count 123 L (140-440) X 10*3/uL Potassium 3.4 L (3.5-5.5) mmol/L Carbon Dioxide 39.3 H (20.0-27.5) mmol/L Anion Gap 8.70 L (10.00-18.00) mmol/L Est GFR (CKD-EPI)NonAf 58.3 L (60.0-200.0)
--- NOTE | 2021-11-03 13:06 | P.PN ---
Subjective Progress Note Date: 11/03/21 On today's evaluation of 11/01/2021, the patient is sitting up on a recliner that she has her family members at the bedside. Doing well. No specific complaints. Much more awake. At times slightly confused with her mentation is improved and the patient is easily arousable and she is able to hold a conv ersation. She was on a BiPAP throughout the night and currently she is off the BiPAP. The patient is being diuresis with IV Lasix and the patient is doing much better and the patient is at least 2-1/2 L negative fluid balance over the past 24 hours. She is currently receiving Lasix 40 mg IV every 8 hours. No new complaints. Lower extremity edema still present. She is still having crackles in the mid and lower lung person bilaterally. Nevertheless, her breathing is improved and she is less short of breath compared to yesterday. She has a home BiPAP unit. Her current BiPAP in the hospital is set at a pressure of 12/5 cm of water with an FiO2 of 45%. Her morning blood work showed a white cell count of 4.8 with hemoglobin of 10.8. Sodium is at 144 with a potassium level of 3.3 and a BUN is at 40 with a creatinine of 0.9 and troponins have been negative and the patient's proBNP level is at 562. Influenza A and B are negative. COVID 19 testing is been negative. BNP is a 14 with a creatinine of 0.9 no signs of any CO2 narcosis this point in time. The blood gases from time of admission from 10/31/2021 showed a pH of 7.34 with a pCO2 of 73 and pO2 of 60. This was on FiO2 of 45%, possibly on a BiPAP. On 11/02/2021, the patient is diuresing the patient is losing weight. The patient is orally lost another 2 L since yesterday in terms of negative fluid balance and her weight is also down. She remains on Lasix 40 L IV every 12 hours. No new complaints. I checked the machine and the patient had at home and this turned out to be a ResMed I VAPS unit which is set at a tidal volume of 450 EPAP minimum of 6 and a maximum of 16 with a pressure support of 4.. The hospital, the patient utilizing hour on BiPAP at a pressure of 12/6 cm of water. The white cell count is at 4.1 with a hemoglobin of 7.5. BNP is at 40 with a creatinine 0.7 the serum bicarbonate at 39. No signs of any CO2 narcosis. No chest pain. No angina. No palpitations. Improving lower extremity edema. 11/03/2021, seeing the patient in a follow-up. Doing extremely well. No specific complaints. Is a leading the BiPAP overnight at a pressure of 12/60 to me is a 14 the patient's condition is stable patient continues to diurese with IV Lasix 40 mg every 12 hours. The neck fluid balance over the past 24 hours is -2.5 L. No chest pain. No altered mentation. No nausea or vomiting. The patient has a AVAPS machine at home which is quite functional. On today's blood work, the patient was a is at 4 with a hemoglobin of 11.2. Serum bicarb is at 36 and the sodium level is at 143 and potassium level is at the point tenderness to be replaced. She remains on long-term anticoagulation with Eliquis. We'll diurese this patient for another 24 hours and replace her potassium. Objective - Vital Signs Vital signs: Vital Signs Temp 98.7 F 11/03/21 11:39 Pulse 59 L 11/03/21 11:39 Resp 16 11/03/21 11:39 BP 107/66 11/03/21 11:39 Pulse Ox 91 L 11/03/21 11:39 Intake & Output 11/02/21 11/03/21 11/03/21 18:59 06:59 18:59 Intake Total 240 Output Total 1400 950 Balance -1160 -950 Weight 114 kg 113 kg Intake: Oral 240 Output: Urine 1400 950 Other: Voiding Method Indwelling Catheter Indwelling Catheter Indwelling Catheter # Bowel Movements 1 - Exam GENERAL EXAM: Alert, pleasant 86-year-old female patient, on oxygen at 4 L of the patient is currently off the BiPAP HEAD: Normocephalic. EYES: Normal reaction of pupils, equal size. NOSE: Clear with pink turbinates. THROAT: No erythema or exudates. NECK: No masses, no JVD. CHEST: No chest wall deformity. LUNGS: Equal air entry with crackles in the bilateral bases CVS: S1 and S2 normal with no audible murmur, regular rhythm. ABDOMEN: No hepatosplenomegaly, normal bowel sounds, no guarding or rigidity. SPINE: No scoliosis or deformity SKIN: No rashes CENTRAL NERVOUS SYSTEM: No focal deficits, tone is normal in all 4 extremities. EXTREMITIES: There is 1-2+ peripheral edema. No clubbing, no cyanosis. Peripheral pulses are intact. - Labs CBC & Chem 7: 11/03/21 07:17 11/03/21 07:17 Labs: Abnormal Lab Results - Last 24 Hours (Table) 11/03/21 11/03/21 Range/Units 07:17 07:17 WBC 4.03 L (4.50-10.00) X 10*3/uL RBC 3.58 L (4.10-5.20) X 10*6/uL Hgb 11.2 L (12.0-15.0) g/dL MCV 104.7 H (80.0-97.0) fL MCHC 29.9 L (32.0-37.0) g/dL RDW 16.1 H (11.5-14.5) % Plt Count 120 L (140-440) X 10*3/uL Potassium 2.9 L (3.5-5.5) mmol/L Chloride 94 L (96-109) mmol/L Carbon Dioxide 36.7 H (20.0-27.5) mmol/L TSH 70.200 H (0.350-5.500) uIU/mL Free T4 0.120 L (0.800-1.800) ng/dL Assessment and Plan Assessment: Acute on chronic hypoxemic respiratory failure secondary to an acute exacerbation of diastolic congestive heart failure. The patient had some signs of CO2 narcosis. Improved with the use of BiPAP and the patient is being actively diuresed. She has typical features of obstructive sleep apnea/obesity hypoventilation syndrome and right-sided failure. The patient also has a moderate degree of aortic stenosis based on echocardiogram and is of limited images done on 10/31/2021. Note that the patient also has hypertensive heart disease with severe concentric LVH along with moderately S, moderate MR and the PA pressures are not been accurately estimated. Clinically the patient is improving and there are no signs of any CO2 narcosis Acute on chronic hypercapnic respiratory failure secondary to above Chronic obstructive pulmonary disease normally on home oxygen at 3 L/m Obstructive sleep apnea, on CPAP at 13 cm of water with oxygen at 3 L based on that titration. 2 years back. Nevertheless the patient claims that she has a BiPAP machine. Morbid obesity, BMI 48.5 kg per metered squared Atrial fibrillation Moderate degree of aortic stenosis Hypertensive heart disease with concentric LVH, severe/contributing to diastolic heart failure Hypertension Hyperlipidemia Hypothyroidism Plan: Continue diuresis with IV Lasix, the patient remains in a negative fluid balance and the patient is a negative fluid balance in order of 2.5 L over the past 24 hours Patient is already negative fluid balance Replace the potassium level There is some mild chronic metabolic alkalosis with a serum bicarb of 37 Clinically improving and the patient will be kept on BiPAP for now intermittently during the day and continuously at nighttime I checked a machine and this was an IVAPS, currently using a BiPAP here in the hospital at the pressure of 12/6 cm of water Monitor renal function currently stable Workup done and the dose of diuretics as of tomorrow we'll continue to follow make further recommendations based on her progress. Clinically improving. No active signs of CO2 narcosis. Mentally improved.
[2021-11-03] MEDS: POTASSIUM CHLORIDE ER 20 MEQ TAB.ER PO SCH ×3 (13:36→18:10)
[2021-11-03 19:24] LABS: Vitamin B12 <150.0 pg/mL (200.0-944.0)
--- NOTE | 2021-11-03 19:39 | P.PN ---
Subjective This is a pleasant 86 years old female with past medical history of Atrial Fibrillation, on Eliquis, heart Failure, CVA/TIA, Hypertension, Pneumonia, Sleep Apnea/CPAP/BIPAP, chronic back pain, ovarian cancer, C-DIFF infection , Depression Presents because of increased confusion, shortness of breath, weakness and inability to ambulate Patient was on BiPAP in bed comfortable, information obtained with the help of the daughter Jodi at bedside As per daughter patient is on 3 L/m of oxygen at home and she is on BiPAP at night since July when she was sick. Her recreation program specialist is Dr. Bearden. 2 days ago patient was tired but, however yesterday she become really sick, it was so bad day for her as per daughter, she was confused, sleeping a lot, could not take her medication, she could not stand up. At baseline she walks about 15-21 feet. Then daughter noticed that she was becoming more hypoxic with oxygen dropped to 59% while on 3 L, she bumped up her oxygen to 4.5 L per minute and saturation improved to 83% as per daughter. So she called EMS for her. Patient is awake and alert, she notes she is in the current hospital in [place], she thought its 05/30/2022. And she is oriented to person as well. She denies any chest pain or dyspnea. She has her insight into her nose. She denies headache or weakness or numbness. No vomiting or diarrhea actually she is constipat she denies urinary symptoms but Doppler reports decreased urine output, She never smoked, she does not drink alcohol. Patient is hemodynamically stable, she is slightly tachypneic and 20 and hypoxic at 91% oxygen saturation on 2 L/m CBC is unremarkable, INR 1.1, arterial blood gas showing slightly low pH 7.34, high pCO2 73 and low pO2 at 60 Sodium 137, carbon dioxide elevated 39, creatinine high at 1.13, compared to baseline of 0.7-0.8 Liver enzymes not elevated, troponin negative and proBNP is low 587. Urine analysis is normal Coronavirus not detected Chest x-ray: Congestive heart failure with patchy atelectasis. Pulmonary congestion improved compared to last exam CTA from 07/2021: No pulmonary embolism. Bilateral pulmonary patchy infiltrates and atelectasis. 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 Cardiology and pulmonary team consulted. 11/01/2021 Patient is more sleepy today although she awakes to verbal and tactile stimuli and answers some questions but she looks also slow. Most likely this could be related to her hypothyroidism. Her levothyroxine was started today at 37.5 g and increased for tomorrow at 50 g daily. But because she is also on Eliquis we will order CT of the brain to rule out intracranial bleed or acute pathology. She is hemodynamically stable, her oxygen is status improved and currently she is on 4 L/m which is close to her home dose of 3 L/m. Echocardiogram showed ejection fraction of 55-60% with moderate aortic stenosis. She remains on Eliquis 5 mg, IV Lasix 40 mg twice daily. Also we put the patient on a fluid restriction 1500 mL per day. Continue with Symbicort and albuterol when necessary 11/02/2021 Patient is more awake and interactive today. She has better appetite. She denies any specific symptoms. No dyspnea or tachypnea while sitting in bed most of the time. Minimal cough and no chest pain, no GI or urinary symptoms. Chest x-ray showing atelectasis and cardiomegaly. Labs showing mild pancytopenia with WBC 4.1, hemoglobin 10.3 and platelet count 123. She remains on a fluid restriction. She remains on IV Lasix 40 mg twice daily. Extremities on levothyroxine 50 units. We will check thyroid function test and B12 and folate. 11/03/2021 patient mentation is improving however she still lethargic and very weak Patient severely low hypothyroidism case. Levothyroid replacement therapy is a started. A shunt on 75 g daily with recommendation to check thyroid function tests in one month. Also vitamin B12 is deficient less than 150 we going to replace it with IM dose in 3 days and then continue with oral. Since she is on a blood thinner she'll be at risk of hematoma however it is thought that benefit more than risk. She remains on IV Lasix 40 mg 3 times a day. Potassium 2.9 been placed on monitored. Magnesium stable at 2.2. Patient will benefit from ECF for rehab upon discharge Objective - Vital Signs Vital signs: Vital Signs Temp 97.9 F 11/03/21 05:52 Pulse 58 L 04/10/22 05:52 Resp 16 11/03/21 05:52 BP 117/61 11/03/21 05:52 Pulse Ox 92 L 11/03/21 05:52 Intake & Output 11/02/21 11/03/21 11/03/21 18:59 06:59 18:59 Intake Total 240 Output Total 1400 950 Balance -1160 -950 Weight 114 kg 113 kg Intake: Oral 240 Output: Urine 1400 950 Other: Voiding Method Indwelling Catheter Indwelling Catheter Indwelling Catheter # Bowel Movements 1 - Exam -GENERAL: The patient is alert and oriented x3, drowsy, not in any acute distress. Well developed, well nourished. Very and generally weak HEENT: Pupils are round and equally reacting to light. EOMI. No scleral icterus. No conjunctival pallor. Normocephalic, atraumatic. No pharyngeal erythema. No thyromegaly. CARDIOVASCULAR: S1 and S2 present. No murmurs, rubs, or gallops. PULMONARY: Chest is clear to auscultation, no wheezing or crackles. ABDOMEN: Soft, nontender, nondistended, normoactive bowel sounds. No palpable organomegaly. MUSCULOSKELETAL: No joint swelling or deformity. -EXTREMITIES: No cyanosis, clubbing,. Bilateral patellar like edema NEUROLOGICAL: Gross neurological examination did not reveal any focal deficits. SKIN: No rashes. no petechiae. - Labs CBC & Chem 7: 11/03/21 07:17 11/03/21 07:17 Labs: Abnormal Lab Results - Last 24 Hours (Table) 11/02/21 11/02/21 Range/Units 07:05 07:05 WBC 4.16 L (4.50-10.00) X 10*3/uL RBC 3.43 L (4.10-5.20) X 10*6/uL Hgb 10.5 L (12.0-15.0) g/dL Hct 36.0 L (37.2-46.3) % MCV 105.0 H (80.0-97.0) fL MCHC 29.2 L (32.0-37.0) g/dL RDW 16.2 H (11.5-14.5) % Plt Count 123 L (140-440) X 10*3/uL Potassium 3.4 L (3.5-5.5) mmol/L Carbon Dioxide 39.3 H (20.0-27.5) mmol/L Anion Gap 8.70 L (10.00-18.00) mmol/L Est GFR (CKD-EPI)NonAf 58.3 L (60.0-200.0) Assessment and Plan Assessment: Acute hypoxic hypercapnic respiratory failure Acute Hypothyroidism Severe vitamin B12 deficiency Pancytopenia secondary to ineffective erythropoiesis fro vitamin B12 deficiency Acute on chronic Diastolic CHF, EF 55-60% Acute on chronic hypoxic respiratory failure, improving Acute COPD exacerbation possible obesity hypoventilation syndrome Mild acute kidney injury Paroxysmal atrial fibrillation on Eliquis Heart failure history of cough with infection a few months ago History of CVA/TIA Hypertension History of sleep apnea Chronic back pain History of ovarian cancer History of depression, not in active tissue Morbid obesity with BMI of 48.5 Plan: This is a pleasant 86 years old female who presents with acute dyspnea and bilateral pulmonary infiltrate. Patient has already started on IV Lasix and continue with inhaled steroids and bronchodilators and oxygen as needed. Continue with BiPAP as needed Continue with levothyroxine 75 g Monitor creatinine and electrolyte Cardiology and pulmonary consult check a bladder scan start vitamin B12 replacement therapy Labs and medication were reviewed.. Continue same treatment. Continue with symptomatic treatment. Resume home medication. Monitor lytes and vitals. DVT and GI prophylaxis. Further recommendations depends on the clinical course of the patient DVT prophylaxis: Eliquis GI Prophylaxis: Pepcid PT/OT: Recommended subacute rehab, protective services social worker on the case Prognosis is guarded
[2021-11-03] MEDS: ATORVASTATIN 40 MG TAB PO SCH (20:17)
[2021-11-03] MEDS: CYANOCOBALAMIN 1,000 MCG/ML 1 ML VIAL IM SCH (20:18)
[2021-11-03 21:34] LABS: Magnesium 2.2 mg/dL (1.6-2.3); Potassium 4.2 mmol/L (3.5-5.1)
[2021-11-03] MEDS: DULoxetine HCL 20 MG CAPSULE.DR PO SCH (21:55)
[2021-11-04] MEDS: LEVOTHYROXINE 75 MCG TAB PO SCH (05:29)
[2021-11-04] MEDS: PREGABALIN 75 MG CAP PO SCH ×3 (05:29→22:16)
[2021-11-04] MEDS: FAMOTIDINE 20 MG TAB PO SCH (07:33)
[2021-11-04] MEDS: METOPROLOL SUCCINATE (ER) 25 MG TAB.ER.24H PO SCH (07:33)
[2021-11-04] MEDS: APIXABAN 5 MG TAB PO SCH ×2 (07:33→22:15)
[2021-11-04] MEDS: CYANOCOBALAMIN 1,000 MCG/ML 1 ML VIAL IM SCH (07:34)
--- NOTE | 2021-11-04 08:06 | XR ---
EXAMINATION TYPE: XR abdomen 2V DATE OF EXAM: 11/04/2021 COMPARISON: NONE HISTORY: Abdominal distention TECHNIQUE: One view abdominal series FINDINGS: The osseous structures are intact. The bowel gas pattern is nonspecific. There are dilated multiple bowel loops. Metallic stimulator device suspected. Right basilar infiltrate noted. Degenerative motley e of the spine. IMPRESSION: 1. Marked dilation of both large and small bowel loops. Correlate for bowel obstruction versus coloni c ileus. 2. Bibasilar infiltrate
--- NOTE | 2021-11-04 08:10 | XR ---
EXAMINATION TYPE: XR chest 1V portable DATE OF EXAM: 11/04/2021 COMPARISON: 11/02/2021 HISTORY: Abdominal distention TECHNIQUE: Single frontal view of the chest is obtained. FINDINGS: Bilateral perihilar interstitial pattern with basilar and perihilar infiltrates. Heart is enlarged. No pneumothorax. No sizable pleural effusion. IMPRESSION: 1. Bilateral perihilar and lower lobe infiltrate correlate for pneumonia.
[2021-11-04] MEDS: SYMBICORT 160-4.5 MCG INHALER INHALATION SCH ×2 (08:24→20:10)
[2021-11-04 09:05] LABS: Basophils # (A) 0.01 X 10*3/uL (0.00-0.10); Basophils % (A) 0.2 %; Eosinophils # (A) 0.18 X 10*3/uL (0.04-0.35); Eosinophils % (A) 3.5 %; HCT 37.8 % (37.2-46.3); HGB 11.3 g/dL (12.0-15.0); Immature Grans, Automated 0 %; Lymphocytes # (A) 1.32 X 10*3/uL (0.90-5.00); MCH 31.3 pg (27.0-32.0); MCHC 29.9 g/dL (32.0-37.0); MCV 104.7 fL (80.0-97.0); Mean Platelet Volume 11.5 fL (9.5-12.2); Monocytes # (A) 0.41 X 10*3/uL (0.20-1.00); Monocytes % (A) 8.1 %; NRBC Per 100 WBC 0 /100 WBCS (0.0-0.0); Neutrophils # (A) 3.16 X 10*3/uL (1.80-7.70); Neutrophils % (A) 62.2 %; Platelet Count 124 X 10*3/uL (140-440); RBC 3.61 X 10*6/uL (4.10-5.20); RDW 16.1 % (11.5-14.5); WBC 5.08 X 10*3/uL (4.50-10.00)
[2021-11-04 09:40] LABS: ALT 10 U/L (8-44); AST 19 U/L (13-35); African American GFR (CKD) 77.9 (60.0-200.0); Albumin 4.2 g/dL (3.8-4.9); Albumin/Globulin Ratio 2.21 (1.60-3.17); Alkaline Phosphatase 75 U/L (41-126); BUN/Creat Ratio 16.88 Ratio (12.00-20.00); Bilirubin, Conjugated <0.20 mg/dL (0.20-0.40); Blood Urea Nitrogen 13.5 mg/dL (9.0-27.0); Calcium 9.4 mg/dL (8.7-10.3); Carbon Dioxide 38.5 mmol/L (20.0-27.5); Chloride 95 mmol/L (96-109); Globulin 1.9 g/dL (1.6-3.3); Glucose 94 mg/dL (70-110); Magnesium 2.2 mg/dL (1.5-2.4); Non-African American GFR(CKD) 67.2 (60.0-200.0); Potassium 3.5 mmol/L (3.5-5.5); Sodium 144 mmol/L (135-145); Total Protein 6.1 g/dL (6.2-8.2)
--- NOTE | 2021-11-04 10:49 | P.PN ---
Subjective Progress Note Date: 11/04/21 HISTORY OF PRESENT ILLNESS: This is a 86-year-old female with a past medical history significant for congestive heart failure, aortic stenosis, paroxysmal atrial fibrillation, obstructive sleep apnea, and COPD with home oxygen use. Patient follows in the office with Dr. Watts. We have been asked to see the patient in consultation for CHF. Patient examined at the bedside. Patient states she came to the hospital because she was extremity and shortness of breath over the past few days. The patient was found to be in CHF. She was started on IV Lasix. The patient is currently on a BiPAP with 45% FiO2. She states her breathing has improved since going to the hospital. She denies any chest pain or pressure. * Chest xray congestive heart failure with patchy atelectasis. Pulmonary congestion improved compared to last exam * Laboratory data: WBC 5.6. Hemoglobin 12.2. Platelet count 114. Sodium 137. Potassium 4.4. BUN 17. Creatinine 1.13. Troponin negative 2. ProBNP 587. * Current home cardiac medications include glucose 5 mg twice a day, Lipitor 40 mg daily, Lasix 40 mg daily, metoprolol succinate 25 mg daily, Diamox 250 mg daily * Most recent echocardiogram obtained in July 2021 revealed ejection fraction 65-70%, mild MR, mild TR * Patient had an echocardiogram completed in June 2020 revealing ejection fraction 60% with moderate aortic stenosis * Cardiac catheterization history: January 2011 revealed 30% proximal LAD stenosis 11/01/2021 Patient examined this morning at the bedside. Patient is on nasal cannula this morning. She reports improvement in her SOB. She denies chest pain or pressure. She remains on IV lasix 40mg q8 hours. Vital signs are stable. Labs from this morning are currently pending. Echocardiogram completed revealing ejection fraction 55-60%, moderate aortic stenosis, mild MR, mild TR, and moderate pulm onary hypertension 11/02/2021 Patient denies any new concerns. Repeat potassium is 3.4 will be replaced. Hemoglobin at 10.5, platelet count 123. She is continued on Lasix 40 mg IV every 12 hours. 11/03/2021 Patient is currently on CPAP. She has been on IV Lasix 40 mg every 12 hours with good urine output, Ramos catheter in place. Repeat blood work reveals potassium of 2.9 which will be replaced, BUN 13 and creatinine 0.8. Hemoglobin 11.2. TSH is 70.2 and free T4 0.120. Patient has been started on levothyroxine by attending. 11/04/2021 Patient examined this morning. She is sitting up in the chair. She denies chest pain or pressure. Currently denies SOB. She remains on IV lasix 40mg Q12 hours. Fluid balance over the last 24 hours is -1754 mL. Chest x-ray this morning reveals bilateral perihilar and lower lobe infiltrate correlate for pneumonia. PHYSICAL EXAM: VITAL SIGNS: Reviewed. GENERAL: Well-developed in no acute distress. HEENT: Head is normocephalic. Pupils are equal, round. Sclerae anicteric. Mucous membranes of the mouth are moist. Neck supple. No JVD or thyromegaly LUNGS: Respirations even and unlabored. Lungs diminished to auscultation bilaterally with a few scattered crackles. HEART: Regular rate and rhythm. S1 and S2 heard. Systolic murmur noted ABDOMEN: Soft. Nondistended. Nontender. EXTREMITIES: Normal range of motion. No clubbing or cyanosis. Peripheral pulses intact. 2+ bilateral lower extremity edema NEUROLOGIC: Awake and alert. Oriented x 3. ASSESSMENT: Shortness of breath Acute on chronic congestive heart failure with preserved ejection fraction Aortic stenosis Acute on chronic hypercapnic respiratory failure COPD Obstructive sleep apnea on CPAP outpatient Paroxysmal atrial fibrillation Hypertension Hyperlipidemia Hypothyroidism PLAN: Continue current cardiac medications Continue IV Lasix. Accurate I&O Daily weights Monitor kidney function Further recommendations pending patient's course Nurse practitioner note has been reviewed by physician. Signing provider agrees with the documented findings, assessment, and plan of care. Objective - Vital Signs Vital signs: Vital Signs Temp 97.8 F 11/04/21 05:00 Pulse 64 11/04/21 07:30 Resp 16 11/04/21 07:30 BP 129/61 11/04/21 07:30 Pulse Ox 91 L 11/04/21 07:30 Intake & Output 11/03/21 11/04/21 11/04/21 18:59 06:59 18:59 Intake Total 946 200 Output Total 2900 Balance 946 -2700 Weight 113 kg 113.5 kg Intake: Oral 946 200 Output: Urine 2900 Uretheral (Ramos) 1450 Other: Voiding Method Indwelling Catheter Indwelling Catheter Indwelling Catheter - Labs CBC & Chem 7: 11/04/21 06:01 11/04/21 06:01 Labs: Abnormal Lab Results - Last 24 Hours (Table) 11/03/21 11/03/21 11/04/21 Range/Units 07:17 07:17 06:01 WBC 4.03 L (4.50-10.00) X 10*3/uL RBC 3.58 L 3.61 L (4.10-5.20) X 10*6/uL Hgb 11.2 L 11.3 L (12.0-15.0) g/dL MCV 104.7 H 104.7 H (80.0-97.0) fL MCHC 29.9 L 29.9 L (32.0-37.0) g/dL RDW 16.1 H 16.1 H (11.5-14.5) % Plt Count 120 L 124 L (140-440) X 10*3/uL Potassium 2.9 L (3.5-5.5) mmol/L Chloride 94 L (96-109) mmol/L Carbon Dioxide 36.7 H (20.0-27.5) mmol/L Conjugated Bilirubin (0.20-0.40) mg/dL Total Protein (6.2-8.2) g/dL Vitamin B12 <150.0 L (200.0-944.0) pg/mL TSH 70.200 H (0.350-5.500) uIU/mL Free T4 0.120 L (0.800-1.800) ng/dL Free T3 pg/mL <0.39 L (2.30-4.20) pg/mL 11/04/21 Range/Units 06:01 WBC (4.50-10.00) X 10*3/uL RBC (4.10-5.20) X 10*6/uL Hgb (12.0-15.0) g/dL MCV (80.0-97.0) fL MCHC (32.0-37.0) g/dL RDW (11.5-14.5) % Plt Count (140-440) X 10*3/uL Potassium (3.5-5.5) mmol/L Chloride 95 L (96-109) mmol/L Carbon Dioxide 38.5 H (20.0-27.5) mmol/L Conjugated Bilirubin <0.20 L (0.20-0.40) mg/dL Total Protein 6.1 L (6.2-8.2) g/dL Vitamin B12 (200.0-944.0) pg/mL TSH (0.350-5.500) uIU/mL Free T4 (0.800-1.800) ng/dL Free T3 pg/mL (2.30-4.20) pg/mL
[2021-11-04] MEDS: CLOBETASOL PROP 0.05% CR 15GM TOPICAL SCH ×2 (11:01→22:16)
[2021-11-04] MEDS: SODIUM CHLORIDE 0.9% 1,000 ML IV SCH (11:02)
--- NOTE | 2021-11-04 11:11 | P.PN ---
Subjective Progress Note Date: 11/04/21 Principal diagnosis: Shortness of breath On 11/04/2021 patient seen in follow-up on medical surgical floor. She is on 4 L of oxygen, she is currently sitting on the bedside commode, she states her breathing is improved, still has some mild crackles at the bases, she remains on IV diuretics 40 mg IV push twice a day, and she is in -1754 mL net fluid balance over the last 24 hours, lower extremity edema still remains. Chest x-ray today shows bilateral perihilar and lower lobe infiltrate. No complaints of chest discomfort. Today's labs have been reviewed showing white blood cell count of 5.08, hemoglobin of 11.3, sodium is 144, potassium is 3.5, BUN is 13.5, and creatinine 0.8. No acute events overnight. Vital signs have been stable, patient remains on inhaled bronchodilators. She was also started on Synthroid for hypothyroidism. Objective - Vital Signs Vital signs: Vital Signs Temp 97.8 F 11/04/21 05:00 Pulse 64 11/04/21 07:30 Resp 16 11/04/21 07:30 BP 129/61 11/04/21 07:30 Pulse Ox 91 L 11/04/21 07:30 Intake & Output 11/03/21 11/04/21 11/04/21 18:59 06:59 18:59 Intake Total 946 200 Output Total 2900 Balance 946 -2700 Weight 113 kg 113.5 kg Intake: Oral 946 200 Output: Urine 2900 Uretheral (Ramos) 1450 Other: Voiding Method Indwelling Catheter Indwelling Catheter Indwelling Catheter - Exam GENERAL EXAM: Alert, very pleasant, 86-year-old obese white female on the beds roque commode with assistance, currently on 4 L of oxygen pulse ox is 91% comfortable in no apparent distress. HEAD: Normocephalic/atraumatic. EYES: Normal reaction of pupils, equal size. Conjunctiva pink, sclera white. NOSE: Clear with pink turbinates. THROAT: No erythema or exudates. NECK: No masses, no JVD, no thyroid enlargement, no adenopathy. CHEST: No chest wall deformity. Symmetrical expansion. LUNGS: Equal air entry with no crackles, wheeze, rhonchi or dullness. CVS: Regular rate and rhythm, normal S1 and S2, no gallops, no murmurs, no rubs ABDOMEN: Soft, nontender. No hepatosplenomegaly, normal bowel sounds, no guarding or rigidity. EXTREMITIES: No clubbing, bilateral lower extremity edema, 1+, no cyanosis, 2+ pulses and upper and lower extremities. MUSCULOSKELETAL: Muscle strength and tone normal. SPINE: No scoliosis or deformity SKIN: No rashes CENTRAL NERVOUS SYSTEM: Alert and oriented -3. No focal deficits, tone is normal in all 4 extremities. PSYCHIATRIC: Alert and oriented -3. Appropriate affect. Intact judgment and insight. - Labs CBC & Chem 7: 11/04/21 06:01 11/04/21 06:01 Labs: Abnormal Lab Results - Last 24 Hours (Table) 11/03/21 11/03/21 11/04/21 Range/Units 07:17 07:17 06:01 WBC 4.03 L (4.50-10.00) X 10*3/uL RBC 3.58 L 3.61 L (4.10-5.20) X 10*6/uL Hgb 11.2 L 11.3 L (12.0-15.0) g/dL MCV 104.7 H 104.7 H (80.0-97.0) fL MCHC 29.9 L 29.9 L (32.0-37.0) g/dL RDW 16.1 H 16.1 H (11.5-14.5) % Plt Count 120 L 124 L (140-440) X 10*3/uL Potassium 2.9 L (3.5-5.5) mmol/L Chloride 94 L (96-109) mmol/L Carbon Dioxide 36.7 H (20.0-27.5) mmol/L Conjugated Bilirubin (0.20-0.40) mg/dL Total Protein (6.2-8.2) g/dL Vitamin B12 <150.0 L (200.0-944.0) pg/mL TSH 70.200 H (0.350-5.500) uIU/mL Free T4 0.120 L (0.800-1.800) ng/dL Free T3 pg/mL <0.39 L (2.30-4.20) pg/mL 11/04/21 Range/Units 06:01 WBC (4.50-10.00) X 10*3/uL RBC (4.10-5.20) X 10*6/uL Hgb (12.0-15.0) g/dL MCV (80.0-97.0) fL MCHC (32.0-37.0) g/dL RDW (11.5-14.5) % Plt Count (140-440) X 10*3/uL Potassium (3.5-5.5) mmol/L Chloride 95 L (96-109) mmol/L Carbon Dioxide 38.5 H (20.0-27.5) mmol/L Conjugated Bilirubin <0.20 L (0.20-0.40) mg/dL Total Protein 6.1 L (6.2-8.2) g/dL Vitamin B12 (200.0-944.0) pg/mL TSH (0.350-5.500) uIU/mL Free T4 (0.800-1.800) ng/dL Free T3 pg/mL (2.30-4.20) pg/mL Assessment and Plan Plan: Assessment: Acute on chronic hypoxemic respiratory failure secondary to an acute exacerbation of diastolic congestive heart failure. The patient had some signs of CO2 narcosis. Improved with the use of BiPAP and the patient is being actively diuresed. She has typical features of obstructive sleep apnea/obesity hypoventilation syndrome and right-sided failure. The patient also has a moderate degree of aortic stenosis based on echocardiogram and is of limited images done on 10/31/2021. Note that the patient also has hypertensive heart disease with severe concentric LVH along with moderately S, moderate MR and the PA pressures are not been accurately estimated. Clinically the patient is improving and there are no signs of any CO2 narcosis Acute on chronic hypercapnic respiratory failure secondary to above Chronic obstructive pulmonary disease normally on home oxygen at 3 L/m Obstructive sleep apnea, on CPAP at 13 cm of water with oxygen at 3 L based on that titration. 2 years back. Nevertheless the patient claims that she has a BiPAP machine. Morbid obesity, BMI 48.5 kg per metered squared Atrial fibrillation Moderate degree of aortic stenosis Hypertensive heart disease with concentric LVH, severe/contributing to diastolic heart failure Hypertension Hyperlipidemia Hypothyroidism Plan: Patient is breathing comfortably Maintaining negative fluid balance Continue Symbicort Monitor electrolytes and renal profile Clinically patient is improving Increase activity as tolerated CPAP support at night We'll continue to follow I have personally seen and examined the patient, performed the documentation and the assessment and plan as written. Number of minutes spent on the visit: [10] Time with Patient: Less than 30
--- NOTE | 2021-11-04 11:16 | P.GSCN ---
History of Present Illness Consult date: 11/04/21 History of present illness: CHIEF COMPLAINT: Shortness of breath Reason for consult: bowel obstruction versus ileus HISTORY OF PRESENT ILLNESS: This is a 86-year-old female who came into the hospital 4 days ago with evidence of shortness of breath,respiratory failure and mental status changes. She was found to have an acute CHF exacerbation and is currently on IV Lasix. Her echo shows an EF of 55-60%. She is followed by cardiology and pulmonary service. Patient also has a known history of atrial fibrillation and anticoagulated with Eliquis. Patient had an abdominal x-ray this morning due to increase in abdominal distention. Results reported marked dilation of both large and small bowel loops. Correlate for bowel dissection versus colonic ileus. Patient reports that she has been having lower back pain which is chronic for her and has had lower abdominal pain. She reports abdominal pain started within the last few days. She reports improvement in her abdominal pain. She reports having issues with constipation and then has only had's to liquidy stools since she's been here. She denies any flatus. Denies any nausea or vomiting. She was made nothing by mouth this morning due to her abdominal distention. Patient reports due to her back pain she has not been moving much. She does report taking pain medication at home for chronic back pain. Patient has been having hypokalemia. Her potassium is currently at 3.5. Patient does have past surgical history which includes exploratory laparotomy, hernia repair, hysterectomy and back surgery. PAST MEDICAL HISTORY: Atrial Fibrillation, Cancer, Heart Failure, CVA/TIA, Hypertension, Pneumonia, Sleep Apnea/CPAP/BIPAP PAST SURGICAL HISTORY: Back Surgery, Hernia Repair, Hysterectomy, benign tumor removal MEDICATIONS: See list. ALLERGIES: See list. SOCIAL HISTORY: No illicit drug use. REVIEW OF SYSTEMS: CONSTITUTIONAL: Denies fever or chills. HEENT: Denies blurred vision, vision changes, or eye pain. Denies hemoptysis CARDIOVASCULAR: Denies chest pain or pressure. RESPIRATORY: No shortness of breath. GASTROINTESTINAL: See HPI for pertinent findings HEMATOLOGIC: Denies bleeding disorders. GENITOURINARY: Denies any blood in urine or increased urinary frequency. SKIN: Denies pruitis. Denies rash. PHYSICAL EXAM: VITAL SIGNS: Reviewed GENERAL: Well-developed in no acute distress. HEENT: No sclera icterus. Extraocular movements grossly intact. Moist buccal mucosa. Head is atraumatic, normocephalic. No nasal drainage. ABDOMEN: Distended. Nontender. Healed Old scar at center of abdomen NEUROLOGIC: Confused but able to answer some questions appropriately. LABORATORY DATA: WBC 5.08 hemoglobin 11.3 platelets 124 Sodium 144 potassium 3.5 creatinine 0.8 IMAGING: Abdominal x-ray as stated above ASSESSMENT: 1. Abdominal distention with dilation of the large and small bowel loops. X- ray notes to correlate for possible bowel obstruction versus colonic ileus 2. Acute CHF exacerbation 3. Acute on chronic hypoxic and hypercapnic respiratory failure 4. Hypokalemia 5. History of atrial fibrillation anticoagulated with Eliquis 6. History of abdominal surgeries PLAN: -Computed tomography scan abdomen and pelvis with oral contrast ordered for further evaluation of ileus versus bowel obstruction -Keep patient nothing by mouth -Continue supportive care -Further recommendations forthcoming per surgeon Thank you for this consultation Physician Shareholder note has been reviewed by physician. Signing provider agrees with the documented findings, assessment, and plan of care. I have personally seen and examined the patient, reviewed the [employer]TER /PAs history, exam and MDM and agree with the assessment and plan as written. Based on total visit time, I have performed more than 50% of the visit. As above: Patient with colonic ileus. She did pass a large amount of air after the CAT scan was performed. Continue stool softeners and Dulcolax suppositories daily. Increase activity. We'll follow with you. Past Medical History Past Medical History: Atrial Fibrillation, Cancer, Heart Failure, COPD, Fibromyalgia, GERD/Reflux, Hyperlipidemia, Hypertension, Osteoarthritis (OA), Pneumonia, Respiratory Disorder, Skin Disorder, Sleep Apnea/CPAP/BIPAP Additional Past Medical History / Comment(s): Chronic hypoxic and hypercanpnic respiratory failure/obesity hypoventilation syndrome, home O2 at 4L/NC daytime and Bipap at night, past pneumonias and covid pneumonia 05/2021, pulmonary fi brosis, cardiac valve disease, ovarian cancer with surgery/chemo/radiation, benign brain tumor removed, PVCs, chronic back pain/bilateral hips and shoulders, RLS, psoriasis, sacral decub, 1998 Cdiff colitis. History of Any Multi-Drug Resistant Organisms: C-DIFF Year Discovered:: stool MDRO Source:: 1998 Past Surgical History: Back Surgery, Heart Catheterization, Hernia Repair, Hysterectomy, Joint Replacement, Tonsillectomy Additional Past Surgical History / Comment(s): Total hysterectomy, incisional hernia with mesh which later became imfected and had exploratory lapar atomy/wound vac, back surgeries x2, EGD, colonoscopy, hemorrhoidectomy, loop recorder, brain tumor removed, bilateral total knee arthroplasties, bilateral cataract surgery. Past Anesthesia/Blood Transfusion Reactions: No Reported Reaction Smoking Status: Never smoker - Past Family History Father Family Medical History: Myocardial Infarction (RI) Additional Family Medical History / Comment(s): Father of a RI at the age of 56yrs. Mother Additional Family Medical History / Comment(s): parkinson's Sister(s) Family Medical History: Cancer Medications and Allergies Home Medications Medication Instructions Recorded Confirmed Type Atorvastatin [Lipitor] 40 mg PO HS@209908/17/17 10/31/21 History DULoxetine HCL [Cymbalta] 20 mg PO HS@209910/16/17 10/31/21 History Apixaban [Eliquis] 5 mg PO BID@899,209912/12/19 10/31/21 History Fluticasone Nasal [place] [Flonase 1 spr EA NOSTRIL DAILY PRN 12/12/19 10/31/21 History Nasal Bucks] Metoprolol Succinate [Toprol XL] 25 mg PO DAILY@89912/12/19 10/31/21 History Triamcinolone 0.1% Ointment 1 applic TOPICAL Q12H PRN 06/15/21 10/31/21 History [Kenalog 0.1% Ointment] rOPINIRole HCL [Requip] 3 mg PO BID@899,209906/15/21 10/31/21 History Albuterol Inhaler [Ventolin Hfa 2 puff INHALATION RT-QID PRN 07/17/21 10/31/21 History Inhaler] Ascorbic Acid [Vitamin C] 500 mg PO HS@209908/21/21 10/31/21 History Budesonide-Formot 160-4.5 Mcg 2 puff INHALATION RT-BID@00,209908/21/21 10/31/21 History [Symbicort 160-4.5 Mcg Inhaler] Cholecalciferol [Vitamin D3 (25 25 mcg PO DAILY@0908/21/21 10/31/21 History Mcg = 1000 Iu)] Clindamycin Phosphate [Cleocin T 1 applic TOPICAL Q12H 08/21/21 10/31/21 History 1% Lotion] Furosemide [Lasix] 40 mg PO DAILY@0600 08/21/21 10/31/21 History Ipratropium-Albuterol Nebulize 3 ml INHALATION RT-QID 08/21/21 10/31/21 History [Duoneb 0.5 mg-3 mg/3 ml Soln] Potassium Chloride ER [K-Dur 20] 20 meq PO DAILY@0900 08/21/21 10/31/21 History acetaZOLAMIDE [Diamox] 250 mg PO DAILY@0900 08/21/21 10/31/21 History HYDROcodone/APAP 7.5-325MG [[place] 1 tab PO BID PRN #6 tab 08/23/21 10/31/21 Rx 7.5-325] Pregabalin [Lyrica] 150 mg PO TID@0600,1400,2200 #6 cap 08/23/21 10/31/21 Rx Clobetasol Propionate [Clobex 1 applic TOPICAL Q12H 10/31/21 10/31/21 History Bucks 0.05%] Melatonin [Melatonin Chew] 2.5 mg PO HS 10/31/21 10/31/21 History Nystatin 100,000 Unit/gm Powd 1 applic TOPICAL BID 10/31/21 10/31/21 History [Mycostatin Powder] Nystatin 100,000Unit/gm Cream 1 applic TOPICAL BID 10/31/21 10/31/21 History [Mycostatin Cream] Allergies Allergy/AdvReac Type Severity Reaction Status Date / Time Penicillins Allergy Swelling/it Verified 10/31/21 02:45 [facility] - Exam Vital Signs Temp Pulse Resp BP Pulse Ox 98.4 F 58 L 20 121/54 91 L 10/31/21 02:39 10/31/21 02:39 10/31/21 02:39 10/31/21 02:39 10/31/21 02:39 Results - Labs 11/04/21 06:01 11/04/21 06:01 Abnormal Lab Results - Last 24 Hours (Table) 11/03/21 11/03/21 11/04/21 Range/Units 07:17 07:17 06:01 WBC 4.03 L (4.50-10.00) X 10*3/uL RBC 3.58 L 3.61 L (4.10-5.20) X 10*6/uL Hgb 11.2 L 11.3 L (12.0-15.0) g/dL MCV 104.7 H 104.7 H (80.0-97.0) fL MCHC 29.9 L 29.9 L (32.0-37.0) g/dL RDW 16.1 H 16.1 H (11.5-14.5) % Plt Count 120 L 124 L (140-440) X 10*3/uL Potassium 2.9 L (3.5-5.5) mmol/L Chloride 94 L (96-109) mmol/L Carbon Dioxide 36.7 H (20.0-27.5) mmol/L Conjugated Bilirubin (0.20-0.40) mg/dL Total Protein (6.2-8.2) g/dL Vitamin B12 <150.0 L (200.0-944.0) pg/mL TSH 70.200 H (0.350-5.500) uIU/mL Free T4 0.120 L (0.800-1.800) ng/dL Free T3 pg/mL <0.39 L (2.30-4.20) pg/mL 11/04/21 Range/Units 06:01 WBC (4.50-10.00) X 10*3/uL RBC (4.10-5.20) X 10*6/uL Hgb (12.0-15.0) g/dL MCV (80.0-97.0) fL MCHC (32.0-37.0) g/dL RDW (11.5-14.5) % Plt Count (140-440) X 10*3/uL Potassium (3.5-5.5) mmol/L Chloride 95 L (96-109) mmol/L Carbon Dioxide 38.5 H (20.0-27.5) mmol/L Conjugated Bilirubin <0.20 L (0.20-0.40) mg/dL Total Protein 6.1 L (6.2-8.2) g/dL Vitamin B12 (200.0-944.0) pg/mL TSH (0.350-5.500) uIU/mL Free T4 (0.800-1.800) ng/dL Free T3 pg/mL (2.30-4.20) pg/mL Diabetes panel 11/03/21 11/03/21 11/04/21 Range/Units 07:17 20:33 06:01 Sodium 143 144 (135-145) mmol/L Potassium 2.9 L 4.2 3.5 (3.5-5.5) mmol/L Chloride 94 L 95 L (96-109) mmol/L Carbon Dioxide 36.7 H 38.5 H (20.0-27.5) mmol/L BUN 13.6 13.5 (9.0-27.0) mg/dL Creatinine 0.8 0.8 (0.6-1.5) mg/dL Glucose 88 94 (70-110) mg/dL Calcium 9.1 9.4 (8.7-10.3) mg/dL AST 19 (13-35) U/L ALT 10 (8-44) U/L Alkaline Phosphatase 75 (41-126) U/L Total Protein 6.1 L (6.2-8.2) g/dL Albumin 4.2 (3.8-4.9) g/dL Thyroid panel 11/03/21 Range/Units 07:17 TSH 70.200 H (0.350-5.500) uIU/mL Calcium panel 11/03/21 11/04/21 Range/Units 07:17 06:01 Calcium 9.1 9.4 (8.7-10.3) mg/dL Albumin 4.2 (3.8-4.9) g/dL Pituitary panel 11/03/21 11/03/21 11/04/21 Range/Units 07:17 20:33 06:01 Sodium 143 144 (135-145) mmol/L Potassium 2.9 L 4.2 3.5 (3.5-5.5) mmol/L Chloride 94 L 95 L (96-109) mmol/L Carbon Dioxide 36.7 H 38.5 H (20.0-27.5) mmol/L BUN 13.6 13.5 (9.0-27.0) mg/dL Creatinine 0.8 0.8 (0.6-1.5) mg/dL Glucose 88 94 (70-110) mg/dL Calcium 9.1 9.4 (8.7-10.3) mg/dL TSH 70.200 H (0.350-5.500) uIU/mL Adrenal panel 11/03/21 11/03/21 11/04/21 Range/Units 07:17 20:33 06:01 Sodium 143 144 (135-145) mmol/L Potassium 2.9 L 4.2 3.5 (3.5-5.5) mmol/L Chloride 94 L 95 L (96-109) mmol/L Carbon Dioxide 36.7 H 38.5 H (20.0-27.5) mmol/L BUN 13.6 13.5 (9.0-27.0) mg/dL Creatinine 0.8 0.8 (0.6-1.5) mg/dL Glucose 88 94 (70-110) mg/dL Calcium 9.1 9.4 (8.7-10.3) mg/dL Total Bilirubin 0.40 (0.30-1.20) mg/dL AST 19 (13-35) U/L ALT 10 (8-44) U/L Alkaline Phosphatase 75 (41-126) U/L Total Protein 6.1 L (6.2-8.2) g/dL Albumin 4.2 (3.8-4.9) g/dL
[2021-11-04] MEDS: FUROSEMIDE 10 MG/ML 4 ML VIAL IV SCH ×2 (11:24→22:16)
[2021-11-04] MEDS: IOPAMIDOL CONTRAST (ORAL USE) VIAL PO PRN ×2 (11:55→13:01)
[2021-11-04 13:17] LABS: Reticulocyte % 2.03 % (0.10-1.80)
[2021-11-04] MEDS ORDERED: bisacodyL 10 MG SUPP RECTAL SCH (15:45)
[2021-11-04] MEDS: MAGNESIUM HYDROXIDE 2,400 MG/10 ML CUP PO SCH (15:55)
--- NOTE | 2021-11-04 16:04 | CT ---
EXAMINATION TYPE: CT abdomen pelvis wo con DATE OF EXAM: 11/04/2021 COMPARISON: X-ray dated 11/04/2021 HISTORY: follow up on ileus vs BETZAIDA CT DLP: 2307.5 mGycm Automated exposure control for dose reduction was used. TECHNIQUE: Helical acquisition of images was performed from the lung bases through the pelvis. FINDINGS: LUNG BASES: Bilateral basal subsegmental pulmonary atelectasis. Associated infection can't be exclude d. Cardiomegaly. Atherosclerotic calcifications. LIVER/GB: No significant abnormality is appreciated. PANCREAS: Atrophic. SPLEEN: No significant abnormality is seen. ADRENALS: No significant abnormality is seen. KIDNEYS: Left renal cysts without gross suspicious features, otherwise unremarkable kidneys. FREE AIR: No free air is visualized RETROPERITONEAL ADENOPATHY: None visualized REPRODUCTIVE ORGANS: Previous hysterectomy. No gross adnexal mass. URINARY BLADDER: Collapsed over a Ramos catheter. PELVIC ADENOPATHY: None visualized. OSSEOUS STRUCTURES: Diffuse osteopenia. Degenerative changes of the lower thoracic and lumbar spine. T10 vertebral body collapse, likely chronic, please correlate clinically. BOWEL: Unremarkable nondistended stomach and duodenum. Anterior abdominal wall hernia seen along the left side of the umbilicus, containing small bowel without evidence of bowel obstruction. Elongated redundant colon with marked gaseous distention of the transverse colon measuring up to 9.5 cm. Reduce d caliber of the distal sigmoid colon with apparent wall thickening, underlying lesion cannot be excl uded. The more proximal colon is not distended yet loaded with fecal material. Fluid-filled rectum. OTHER: Extensive arterial atherosclerotic calcifications. No sizable ascites. Fat stranding of the trimble bcutaneous tissue along the inferior aspect of the anterior abdominal wall, underlying inflammatory/i nfectious process cannot be excluded, please correlate clinically. IMPRESSION: Markedly distention of the transverse colon as described above. Associated apparent wall thickening a nd reduced caliber of the distal sigmoid colon, underlying lesion or stricture at that location canno t be excluded. Please correlate clinically and with colonoscopy results. Other findings as detailed abhijeet molina.
[2021-11-04] MEDS: bisacodyL 10 MG SUPP RECTAL SCH (19:26)
[2021-11-04] MEDS: DULoxetine HCL 20 MG CAPSULE.DR PO SCH (22:16)
[2021-11-04] MEDS: ATORVASTATIN 40 MG TAB PO SCH (22:16)
--- NOTE | 2021-11-05 02:01 | P.PN ---
Subjective Progress Note Date: 11/04/21 This is a pleasant 86 years old female with past medical history of Atrial Fib rillation, on Eliquis, heart Failure, CVA/TIA, Hypertension, Pneumonia, Sleep Apnea/CPAP/BIPAP, chronic back pain, ovarian cancer, C-DIFF infection , Depression Presents because of increased confusion, shortness of breath, weakness and inability to ambulate Patient was on BiPAP in bed comfortable, information obtained with the help of the daughter Jodi at bedside As per daughter patient is on 3 L/m of oxygen at home and she is on BiPAP at [facility] since July when she was sick. Her owner oral surgeon is Dr. Bearden. 2 days ago patient was tired but, however yesterday she become really sick, it was so bad day for her as per daughter, she was confused, sleeping a lot, could not take her medication, she could not stand up. At baseline she walks about 15-21 feet. Then daughter noticed that she was becoming more hypoxic with oxygen dropped to 59% while on 3 L, she bumped up her oxygen to 4.5 L per minute and saturation improved to 83% as per daughter. So she called EMS for her. Patient is awake and alert, she notes she is in the current hospital in [place], she thought its 05/30/2022. And she is oriented to person as well. She denies any chest pain or dyspnea. She has her insight into her nose. She denies headache or weakness or numbness. No vomiting or diarrhea actually she is constipat she denies urinary symptoms but Doppler reports decreased urine output, She never smoked, she does not drink alcohol. Patient is hemodynamically stable, she is slightly tachypneic and 20 and hypoxic at 91% oxygen saturation on 2 L/m CBC is unremarkable, INR 1.1, arterial blood gas showing slightly low pH 7.34, high pCO2 73 and low pO2 at 60 Sodium 137, carbon dioxide elevated 39, creatinine high at 1.13, compared to baseline of 0.7-0.8 Liver enzymes not elevated, troponin negative and proBNP is low 587. Urine analysis is normal Coronavirus not detected Chest x-ray: Congestive heart failure with patchy atelectasis. Pulmonary navin estion improved compared to last exam CTA from 07/2021: No pulmonary embolism. Bilateral pulmonary patchy infiltrates and atelectasis. 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 Cardiology and pulmonary team consulted. 11/01/2021 Patient is more sleepy today although she awakes to verbal and tactile stimuli and answers some questions but she looks also slow. Most likely this could be related to her hypothyroidism. Her levothyroxine was started today at 37.5 g and increased for tomorrow at 50 g daily. But because she is also on Eliquis we will order CT of the brain to rule out intracranial bleed or acute pathology. She is hemodynamically stable, her oxygen is status improved and currently she is on 4 L/m which is close to her home dose of 3 L/m. Echocardiogram showed ejection fraction of 55-60% with moderate aortic stenosis. She remains on Eliquis 5 mg, IV Lasix 40 mg twice daily. Also we put the patient on a fluid restriction 1500 mL per day. Continue with Symbicort and albuterol when necessary 11/02/2021 Patient is more awake and interactive today. She has better appetite. She denies any specific symptoms. No dyspnea or tachypnea while sitting in bed most of the time. Minimal cough and no chest pain, no GI or urinary symptoms. Chest x-ray showing atelectasis and cardiomegaly. Labs showing mild pancytopenia with WBC 4.1, hemoglobin 10.3 and platelet count 123. She remains on a fluid restriction. She remains on IV Lasix 40 mg twice daily. Extremities on levothyroxine 50 units. We will check thyroid function test and B12 and folate. 11/03/2021 patient mentation is improving however she still lethargic and very weak Patient severely low hypothyroidism case. Levothyroid replacement therapy is a started. A shunt on 75 g daily with recommendation to check thyroid function tests in one month. Also vitamin B12 is deficient less than 150 we going to replace it with IM dose in 3 days and then continue with oral. Since she is on a blood thinner she'll be at risk of hematoma however it is thought that benefit more than risk. She remains on IV Lasix 40 mg 3 times a day. Potassium 2.9 been placed on monitored. Magnesium stable at 2.2. Patient will benefit from [facility] for rehab upon discharge 11/04/2021 Patient is seen and evaluated in follow-up this morning having some abdominal discomfort and per nursing staff bowel sounds are sluggish and patient had an episode of liquid stool last night and denies passing gas. Patient underwent abdominal and chest x-ray this morning which showed dilatation of large and small bowel loops an x-ray notes to correlate for possible bowel obstruction versus colonic ileus and have consulted general surgery and an order for a CT abdomen and pelvis is ordered and pending. We'll make the patient nothing by mouth and discuss further with surgery once CT abdomen is done. Pulmonary also following. Review of systems: Constitutional: No reports of fatigue, fever, or chills Cardiovascular: No reports of chest pain or palpitations Respiratory: No reports of shortness of breath or cough GI: No reports of nausea, vomiting, or diarrhea, reports abdominal pain and bloating : No reports of dysuria or retention Neurovascular: No reports of weakness or numbness All medications have been reviewed Active Medications Albuterol Sulfate (Albuterol Nebulized 2.5 Mg/3 Ml) 2.5 mg INHALATION RT-QID PRN PRN Reason: Shortness Of Breath Apixaban (Apixaban 5 Mg Tab) 5 mg PO BID@0900,2100 [facility]; Protocol Last Admin: 11/04/21 07:33 Dose: 5 mg Documented by: Atorvastatin Calcium (Atorvastatin 40 Mg Tab) 40 mg PO HS@2100 [facility] Last Admin: 11/03/21 20:17 Dose: 40 mg Documented by: Budesonide/Formoterol Fumarate (Symbicort 160-4.5 Mcg Inhaler) 2 puff INHALATION RT-BID@0900,2100 [facility] Last Admin: 11/04/21 08:24 Dose: 2 puff Documented by: Clobetasol Propionate (Clobetasol Prop 0.05% Cr 15gm) 1 applic TOPICAL Q12H [facility] Last Admin: 11/04/21 11:01 Dose: 1 applic Documented by: Cyanocobalamin (Cyanocobalamin 1,000 Mcg/Ml 1 Ml Vial) 1,000 mcg IM DAILY [facility] Stop: 11/06/21 20:01 Last Admin: 11/04/21 07:34 Dose: 1,000 mcg Documented by: Cyanocobalamin (Cyanocobalamin 500 Mcg Tab) 1,000 mcg PO DAILY [facility] Docusate Sodium (Docusate 100 Mg Cap) 100 mg PO DAILY PRN PRN Reason: Constipation Last Admin: 11/02/21 21:49 Dose: 100 mg Documented by: Duloxetine HCl (Duloxetine Hcl 20 Mg Capsule.Dr) 20 mg PO HS@2100 [facility] Last Admin: 11/03/21 21:55 Dose: 20 mg Documented by: Famotidine (Famotidine 20 Mg Tab) 20 mg PO DAILY [facility] Last Admin: 11/04/21 07:33 Dose: 20 mg Documented by: Fluticasone Propionate (Fluticasone 50mcg/[place] Nasal 16gm) 1 spray EA NOSTRIL DAILY PRN PRN Reason: Allergy Symptoms Furosemide (Furosemide 10 Mg/Ml 4 Ml Vial) 40 mg IV Q12H [facility] Last Admin: 11/04/21 11:24 Dose: Not Given Documented by: Sodium Chloride (Saline 0.9%) 1,000 mls @ 50 mls/hr IV .Q20H [facility] Last Admin: 11/04/21 11:02 Dose: 50 mls/hr Documented by: Levothyroxine Sodium (Levothyroxine 75 Mcg Tab) 75 mcg PO DAILY@0630 [facility] Last Admin: 11/04/21 05:29 Dose: 75 mcg Documented by: Metoprolol Succinate (Metoprolol Succinate (Er) 25 Mg Tab.Er.24h) 25 mg PO DAILY@0900 [facility] Last Admin: 11/04/21 07:33 Dose: 25 mg Documented by: Miscellaneous Information (Potassium Replacement Protocol 1 Each Misc) 1 each MISCELLANE DAILY PRN; Protocol PRN Reason: Per Protocol Pregabalin (Pregabalin 75 Mg Cap) 150 mg PO TID@0600,1400,2200 [facility] Last Admin: 11/04/21 05:29 Dose: 150 mg Documented by: Ropinirole HCl (Ropinirole Hcl 1 Mg Tab) 3 mg PO BID@0900,2100 [facility] Last Admin: 11/04/21 07:35 Dose: 3 mg Documented by: Physical exam: GENERAL: The patient is alert and oriented x3. Well developed, well nourished. Very lethargic at times and generally weak HEENT: Pupils are round and equally reacting to light. EOMI. No scleral icterus. No conjunctival pallor. Normocephalic, atraumatic. No pharyngeal erythema. No thyromegaly. CARDIOVASCULAR: S1 and S2 muffled PULMONARY: diminished breath sounds with some scattered rhonchi noted ABDOMEN: Soft, obese mildly tender, distended, sluggish bowel sounds. No palpable organomegaly. MUSCULOSKELETAL: No joint swelling or deformity. EXTREMITIES: No cyanosis, clubbing. Bilateral patellar like edema NEUROLOGICAL: Gross neurological examination did not reveal any focal deficits. diffusely weak SKIN: No rashes. no petechiae. Assessment: Acute hypoxic hypercapnic respiratory failure Acute Hypothyroidism abdominal pain and distention, possible ileus Severe vitamin B12 deficiency Pancytopenia secondary to ineffective erythropoiesis from vitamin B12 deficiency Acute on chronic Diastolic CHF, EF 55-60% Acute on chronic hypoxic respiratory failure Acute COPD exacerbation possible obesity hypoventilation syndrome Mild acute kidney injury Paroxysmal atrial fibrillation on Eliquis History of CVA/TIA Hypertension History of sleep apnea Chronic back pain History of ovarian cancer History of depression Morbid obesity with BMI of 48.5 DVT prophylaxis: Eliquis GI Prophylaxis: Pepcid NO code Plan: This is a pleasant 86 years old female who presents with acute dyspnea and bilateral pulmonary infiltrate. Patient continues on IV Lasix along with inhaled steroids and bronchodilators and oxygen. Continue with BiPAP as needed and at night Cardiology and pulmonary following, general surgery consulted for possible ileus PT/OT: Recommended subacute rehab, social insurance administrator on the case, patient will return to [facility] once stable Continue NPO for now and appreciate input and recommendations from surgery Dr. Smith Prognosis is guarded The impression and plan of care has been dictated by Lorna Garg, Nurse Practitioner as directed. Dr. Vega MD I have performed a history and examination and MDM of this patient, discussed the same with the dictator, and agree with the dictator's assessment and plan as written ,documented as a scribe. Based on total visit time, I have performed more than 50% of the visit. Objective - Vital Signs Vital signs: Vital Signs Temp 97.8 F 11/04/21 05:00 Pulse 64 11/04/21 07:30 Resp 16 11/04/21 07:30 BP 129/61 11/04/21 07:30 Pulse Ox 91 L 11/04/21 07:30 Intake & Output 11/03/21 11/04/21 11/04/21 18:59 06:59 18:59 Intake Total 946 200 Output Total 2900 Balance 946 -2700 Weight 113 kg 113.5 kg Intake: Oral 946 200 Output: Urine 2900 Uretheral (Ramos) 1450 Other: Voiding Method Indwelling Catheter Indwelling Catheter - Labs CBC & Chem 7: 11/04/21 06:01 11/04/21 06:01 Labs: Abnormal Lab Results - Last 24 Hours (Table) 11/03/21 11/03/21 11/04/21 Range/Units 07:17 07:17 06:01 WBC 4.03 L (4.50-10.00) X 10*3/uL RBC 3.58 L 3.61 L (4.10-5.20) X 10*6/uL Hgb 11.2 L 11.3 L (12.0-15.0) g/dL MCV 104.7 H 104.7 H (80.0-97.0) fL MCHC 29.9 L 29.9 L (32.0-37.0) g/dL RDW 16.1 H 16.1 H (11.5-14.5) % Plt Count 120 L 124 L (140-440) X 10*3/uL Potassium 2.9 L (3.5-5.5) mmol/L Chloride 94 L (96-109) mmol/L Carbon Dioxide 36.7 H (20.0-27.5) mmol/L Conjugated Bilirubin (0.20-0.40) mg/dL Total Protein (6.2-8.2) g/dL Vitamin B12 <150.0 L (200.0-944.0) pg/mL TSH 70.200 H (0.350-5.500) uIU/mL Free T4 0.120 L (0.800-1.800) ng/dL Free T3 pg/mL <0.39 L (2.30-4.20) pg/mL 11/04/21 Range/Units 06:01 WBC (4.50-10.00) X 10*3/uL RBC (4.10-5.20) X 10*6/uL Hgb (12.0-15.0) g/dL MCV (80.0-97.0) fL MCHC (32.0-37.0) g/dL RDW (11.5-14.5) % Plt Count (140-440) X 10*3/uL Potassium (3.5-5.5) mmol/L Chloride 95 L (96-109) mmol/L Carbon Dioxide 38.5 H (20.0-27.5) mmol/L Conjugated Bilirubin <0.20 L (0.20-0.40) mg/dL Total Protein 6.1 L (6.2-8.2) g/dL Vitamin B12 (200.0-944.0) pg/mL TSH (0.350-5.500) uIU/mL Free T4 (0.800-1.800) ng/dL Free T3 pg/mL (2.30-4.20) pg/mL
[2021-11-05] MEDS: SODIUM CHLORIDE 0.9% 1,000 ML IV SCH (05:49)
[2021-11-05] MEDS: PREGABALIN 75 MG CAP PO SCH ×3 (05:49→22:13)
[2021-11-05] MEDS: LEVOTHYROXINE 75 MCG TAB PO SCH (05:49)
[2021-11-05 07:07] LABS: African American GFR (CKD) 70 (>60 ml/min/1.73 sqM); Blood Urea Nitrogen 15 mg/dL (7-17); Calcium 8.8 mg/dL (8.4-10.2); Chloride 92 mmol/L (98-107); Glucose 82 mg/dL (74-99); Non-African American GFR(CKD) 61 (>60 ml/min/1.73 sqM); Potassium 3.2 mmol/L (3.5-5.1); Sodium 140 mmol/L (137-145)
[2021-11-05 07:13] LABS: Anion Gap 4 mmol/L
[2021-11-05 07:44] LABS: Carbon Dioxide 44 mmol/L (22-30)
[2021-11-05] MEDS ORDERED: Potassium Replacement Protocol 1 EACH MISC MISCELLANE PRN (09:39)
[2021-11-05] MEDS: SYMBICORT 160-4.5 MCG INHALER INHALATION SCH ×2 (09:57→19:54)
[2021-11-05] MEDS: bisacodyL 10 MG SUPP RECTAL SCH (10:03)
[2021-11-05] MEDS: METOPROLOL SUCCINATE (ER) 25 MG TAB.ER.24H PO SCH (10:06)
[2021-11-05] MEDS: CYANOCOBALAMIN 1,000 MCG/ML 1 ML VIAL IM SCH (10:06)
[2021-11-05] MEDS: APIXABAN 5 MG TAB PO SCH ×2 (10:07→22:14)
[2021-11-05] MEDS: MAGNESIUM HYDROXIDE 2,400 MG/10 ML CUP PO SCH (10:07)
[2021-11-05] MEDS: FAMOTIDINE 20 MG TAB PO SCH (10:07)
[2021-11-05] MEDS: POTASSIUM CHLORIDE 10 MEQ in WATER FOR INJECTION 1 100ML.BAG IVPB SCH ×4 (10:07→14:15)
[2021-11-05] MEDS: CLOBETASOL PROP 0.05% CR 15GM TOPICAL SCH ×2 (10:07→22:14)
--- NOTE | 2021-11-05 12:17 | P.PN ---
Subjective Progress Note Date: 11/05/21 Principal diagnosis: Acute exacerbation of diastolic congestive heart failure The patient is seen in 11/05/2021 in follow-up on the regular medical floor. She is currently awake and alert in no acute distress. Resting comfortably in bed. Currently maintaining O2 saturation in the 90s on 3 L/m per nasal cannula. She's been afebrile. Hemodynamically stable. Computed tomography scan of the abdomen and pelvis revealed a markedly distention of the transverse colon area dissociated apparent wall thickening and reduce caliber of the distal sigmoid colon. Underlying lesion or stricture cannot be excluded. Surgical services are on the case. Sodium 140. Potassium 3.2. Bicarb 44. BUN 15. Creatinine 0.87. She is continued on Symbicort, albuterol, Diamox. Anticoagulated with Eliquis. Remains on IV diuretics. Currently in a -1.7 L balance. Objective - Vital Signs Vital signs: Vital Signs Temp 98.5 F 11/05/21 08:00 Pulse 60 11/05/21 09:08 Resp 20 11/05/21 09:08 BP 130/75 11/05/21 08:00 Pulse Ox 93 L 11/05/21 08:00 Intake & Output 11/04/21 11/05/21 11/05/21 18:59 06:59 18:59 Intake Total 450 Output Total 350 400 Balance 100 -400 Weight 113.5 kg 113 kg Intake: Intake, IV Titration 450 Amount Sodium Chloride 0.9% 1, 450 000 ml @ 50 mls/hr IV . Q20H [facility] Rx#:[id number] Output: Urine 350 400 Other: Voiding Method Indwelling Catheter Indwelling Catheter Indwelling Catheter # Bowel Movements 1 1 - Exam GENERAL EXAM: Alert, very pleasant, morbidly obese 86-year-old female, currently on 3 L of oxygen pulse ox is 93% comfortable in no apparent distress. HEAD: Normocephalic/atraumatic. EYES: Normal reaction of pupils, equal size. Conjunctiva pink, sclera white. NOSE: Clear with pink turbinates. THROAT: No erythema or exudates. NECK: No masses, no JVD, no thyroid enlargement, no adenopathy. CHEST: No chest wall deformity. Symmetrical expansion. LUNGS: Equal air entry with crackles in the bilateral bases. CVS: Regular rate and rhythm, normal S1 and S2, no gallops, no murmurs, no rubs ABDOMEN: Soft, nontender. No hepatosplenomegaly, normal bowel sounds, no guarding or rigidity. EXTREMITIES: Bilateral lower extremity edema, 1+, no cyanosis, 2+ pulses and upper and lower extremities. MUSCULOSKELETAL: Muscle strength and tone normal. SPINE: No scoliosis or deformity SKIN: No rashes CENTRAL NERVOUS SYSTEM: No focal deficits, tone is normal in all 4 extremities. PSYCHIATRIC: Alert and oriented -3. Appropriate affect. Intact judgment and insight. - Labs CBC & Chem 7: 11/04/21 06:01 11/05/21 06:07 Labs: Abnormal Lab Results - Last 24 Hours (Table) 11/04/21 11/05/21 Range/Units 06:01 06:07 Retic Count 2.03 H (0.10-1.80) % Potassium 3.2 L (3.5-5.1) mmol/L Chloride 92 L (98-107) mmol/L Carbon Dioxide 44 H* (22-30) mmol/L Assessment and Plan Assessment: Acute on chronic hypoxemic respiratory failure secondary to an acute exacerbation of diastolic congestive heart failure signs of CO2 narcosis. She has typical features of obstructive sleep apnea/obesity/hypoventilation syndrome and right-sided congestive heart failure. Improved with BiPAP. Remains in a negative balance and diuresing well. The patient also has a moderate degree of aortic stenosis based on echocardiogram and is of limited images done on 10/31/2021. Note that the patient also has hypertensive heart disease with severe concentric LVH along with moderately S, moderate MR and the PA pressures are not been accurately estimated. Clinically the patient is improving and there are no signs of any CO2 narcosis Acute on chronic hypercapnic respiratory failure secondary to above Chronic obstructive pulmonary disease normally on home oxygen at 3 L/m Obstructive sleep apnea, on CPAP at 13 cm of water with oxygen at 3 L Morbid obesity, BMI 48.5 kg per metered squared Atrial fibrillation, and related with glucose Hypertension Hyperlipidemia Hypothyroidism Plan: The patient was seen and evaluated Computed tomography scan and labs reviewed Continue BiPAP support as needed Continue with IV diuretics, Diamox Monitor intake and output Continue Symbicort, albuterol We will follow as needed I have personally seen and examined the patient, performed the documentation and the assessment and plan as written. Number of minutes spent on the visit: 10.
--- NOTE | 2021-11-05 12:43 | P.PN ---
Subjective Progress Note Date: 11/05/21 CHIEF COMPLAINT: Abdominal ileus HISTORY OF PRESENT ILLNESS: Patient is sitting up at bedside chair. She does report some improvement in her abdominal distention. She has been having bowel movements with flatus. She denies any nausea or vomiting. She also reports a decrease in abdominal pain. Computed tomography scan abdomen and pelvis show markedly distention of the transverse colon as described above. Associated apparent wall thickening and reduced caliber of the distal sigmoid colon, underlying lesion or stricture at that location cannot exclude. Afebrile. Sodium 140 potassium 3.2 CO2 44 creatinine 0.7 PHYSICAL EXAM: VITAL SIGNS: Reviewed. GENERAL: Well-developed in no acute distress. HEENT: No sclera icterus. Extraocular movements grossly intact. Moist buccal mucosa. Head is atraumatic, normocephalic. ABDOMEN: Abdomen is distended but decreased from yesterday. Nontender. NEUROLOGIC: Alert and oriented. Cranial nerves II through XII grossly intact. ASSESSMENT: 1. Colonic ileus 2. Hypokalemia 3. Acute CHF exacerbation PLAN: -Further recommendations forthcoming per surgeon -Keep patient nothing by mouth -Potassium is being replaced -Continue stool softeners and Dulcolax suppository Physician Rice Milling Supervisor note has been reviewed by physician. Signing provider agrees with the documented findings, assessment, and plan of care. I have personally seen and examined the patient, reviewed the ORIENTATION AND MOBILITY INSTRUCTOR /PAs history, exam and MDM and agree with the assessment and plan as written. Based on total visit time, I have performed more than 50% of the visit. As above: Patient again has had significant flatus. No bowel movement. Denies abdominal pain currently. Says she feels less bloated. Continue stool softeners. Continue diet. Discussed options of endoscopy with patient and family. They are not interested at this time. We'll follow closely. Objective - Vital Signs Vital signs: Vital Signs Temp 97.9 F 11/05/21 12:21 Pulse 95 11/05/21 12:21 Resp 20 11/05/21 12:21 BP 116/68 11/05/21 12:21 Pulse Ox 95 11/05/21 12:21 Intake & Output 11/04/21 11/05/21 11/05/21 18:59 06:59 18:59 Intake Total 450 Output Total 350 400 Balance 100 -400 Weight 113.5 kg 113 kg Intake: Intake, IV Titration 450 Amount Sodium Chloride 0.9% 1, 450 000 ml @ 50 mls/hr IV . Q20H [facility] Rx#:[id number] Output: Urine 350 400 Other: Voiding Method Indwelling Catheter Indwelling Catheter Indwelling Catheter # Bowel Movements 1 1 - Labs CBC & Chem 7: 11/04/21 06:01 11/05/21 06:07 Labs: Abnormal Lab Results - Last 24 Hours (Table) 11/04/21 11/05/21 Range/Units 06:01 06:07 Retic Count 2.03 H (0.10-1.80) % Potassium 3.2 L (3.5-5.1) mmol/L Chloride 92 L (98-107) mmol/L Carbon Dioxide 44 H* (22-30) mmol/L
[2021-11-05] MEDS: FUROSEMIDE 10 MG/ML 4 ML VIAL IV SCH ×2 (12:45→22:14)
[2021-11-05] MEDS: acetaZOLAMIDE 250 MG TAB PO SCH (12:45)
--- NOTE | 2021-11-05 13:00 | P.PN ---
Subjective Progress Note Date: 11/05/21 HISTORY OF PRESENT ILLNESS: This is a 86-year-old female with a past medical history significant for congestive heart failure, aortic stenosis, paroxysmal atrial fibrillation, obstructive sleep apnea, and COPD with home oxygen use. Patient follows in the office with Dr. Watts. We have been asked to see the patient in consultation for CHF. Patient examined at the bedside. Patient states she came to the hospital because she was extremity and shortness of breath over the past few days. The patient was found to be in CHF. She was started on IV Lasix. The patient is currently on a BiPAP with 45% FiO2. She states her breathing has improved since going to the hospital. She denies any chest pain or pressure. * Chest xray congestive heart failure with patchy atelectasis. Pulmonary congestion improved compared to last exam * Laboratory data: WBC 5.6. Hemoglobin 12.2. Platelet count 114. Sodium 137. Potassium 4.4. BUN 17. Creatinine 1.13. Troponin negative 2. ProBNP 587. * Current home cardiac medications include glucose 5 mg twice a day, Lipitor 40 mg daily, Lasix 40 mg daily, metoprolol succinate 25 mg daily, Diamox 250 mg daily * Most recent echocardiogram obtained in July 2021 revealed ejection fraction 65-70%, mild MR, mild TR * Patient had an echocardiogram completed in June 2020 revealing ejection fraction 60% with moderate aortic stenosis * Cardiac catheterization history: January 2011 revealed 30% proximal LAD stenosis 11/01/2021 Patient examined this morning at the bedside. Patient is on nasal cannula this morning. She reports improvement in her SOB. She denies chest pain or pressure. She remains on IV lasix 40mg q8 hours. Vital signs are stable. Labs from this morning are currently pending. Echocardiogram completed revealing ejection fraction 55-60%, moderate aortic stenosis, mild MR, mild TR, and moderate pulm onary hypertension 11/02/2021 Patient denies any new concerns. Repeat potassium is 3.4 will be replaced. Hemoglobin at 10.5, platelet count 123. She is continued on Lasix 40 mg IV every 12 hours. 11/03/2021 Patient is currently on CPAP. She has been on IV Lasix 40 mg every 12 hours with good urine output, Ramos catheter in place. Repeat blood work reveals potassium of 2.9 which will be replaced, BUN 13 and creatinine 0.8. Hemoglobin 11.2. TSH is 70.2 and free T4 0.120. Patient has been started on levothyroxine by attending. 11/04/2021 Patient examined this morning. She is sitting up in the chair. She denies chest pain or pressure. Currently denies SOB. She remains on IV lasix 40mg Q12 hours. Fluid balance over the last 24 hours is -1754 mL. Chest x-ray this morning reveals bilateral perihilar and lower lobe infiltrate correlate for pneumonia. 11/05/2021 Patient denies chest pain or pressure. Denies SOB. She remains on IV lasix. She was receiving IV fluids as well which we will discontinue. Creatinine 0.87. PHYSICAL EXAM: VITAL SIGNS: Reviewed. GENERAL: Well-developed in no acute distress. HEENT: Head is normocephalic. Pupils are equal, round. Sclerae anicteric. Mucous membranes of the mouth are moist. Neck supple. No JVD or thyromegaly LUNGS: Respirations even and unlabored. Lungs diminished to auscultation bilaterally with a few scattered crackles. HEART: Regular rate and rhythm. S1 and S2 heard. Systolic murmur noted ABDOMEN: Soft. Nondistended. Nontender. EXTREMITIES: Normal range of motion. No clubbing or cyanosis. Peripheral pulses intact. 2+ bilateral lower extremity edema NEUROLOGIC: Awake and alert. Oriented x 3. ASSESSMENT: Shortness of breath Acute on chronic congestive heart failure with preserved ejection fraction Aortic stenosis Acute on chronic hypercapnic respiratory failure COPD Obstructive sleep apnea on CPAP outpatient Paroxysmal atrial fibrillation Hypertension Hyperlipidemia Hypothyroidism Colonic ileus PLAN: Continue current cardiac medications Continue IV Lasix. Add Diamox 250mg daily Discontinue IV fluids Accurate I&O Daily weights Monitor kidney function Further recommendations pending patient's course Nurse practitioner note has been reviewed by physician. Signing provider agrees with the documented findings, assessment, and plan of care. Objective - Vital Signs Vital signs: Vital Signs Temp 97.9 F 11/05/21 12:21 Pulse 95 11/05/21 12:21 Resp 20 11/05/21 12:21 BP 116/68 11/05/21 12:21 Pulse Ox 95 11/05/21 12:21 Intake & Output 11/04/21 11/05/21 11/05/21 18:59 06:59 18:59 Intake Total 450 Output Total 350 400 Balance 100 -400 Weight 113.5 kg 113 kg Intake: Intake, IV Titration 450 Amount Sodium Chloride 0.9% 1, 450 000 ml @ 50 mls/hr IV . Q20H [facility] Rx#:[id number] Output: Urine 350 400 Other: Voiding Method Indwelling Catheter Indwelling Catheter Indwelling Catheter # Bowel Movements 1 1 - Labs CBC & Chem 7: 11/04/21 06:01 11/05/21 06:07 Labs: Abnormal Lab Results - Last 24 Hours (Table) 11/04/21 11/05/21 Range/Units 06:01 06:07 Retic Count 2.03 H (0.10-1.80) % Potassium 3.2 L (3.5-5.1) mmol/L Chloride 92 L (98-107) mmol/L Carbon Dioxide 44 H* (22-30) mmol/L
--- NOTE | 2021-11-05 13:16 | XR ---
EXAMINATION TYPE: XR chest 1V portable DATE OF EXAM: 11/05/2021 COMPARISON: 11/04/2021 HISTORY: Shortness of breath TECHNIQUE: Single frontal view of the chest is obtained. FINDINGS: Bilateral perihilar and lower lobe infiltrates are noted. Heart enlarged. Atherosclerotic change aorta. Stimulator device overlying the vertebral column. Arthropathy of the shoulders. No pneu mothorax. No sizable pleural effusion. IMPRESSION: Stable bilateral infiltrate.
[2021-11-05] MEDS: DULoxetine HCL 20 MG CAPSULE.DR PO SCH (22:13)
[2021-11-05] MEDS: ATORVASTATIN 40 MG TAB PO SCH (22:14)
--- NOTE | 2021-11-05 23:51 | P.PN ---
Subjective Progress Note Date: 11/05/21 This is a pleasant 86 years old female with past medical history of Atrial Fib rillation, on Eliquis, heart Failure, CVA/TIA, Hypertension, Pneumonia, Sleep Apnea/CPAP/BIPAP, chronic back pain, ovarian cancer, C-DIFF infection , Depression Presents because of increased confusion, shortness of breath, weakness and inability to ambulate Patient was on BiPAP in bed comfortable, information obtained with the help of the daughter Jodi at bedside As per daughter patient is on 3 L/m of oxygen at home and she is on BiPAP at [facility] since July when she was sick. Her stroboscope operator is Dr. Bearden. 2 days ago patient was tired but, however yesterday she become really sick, it was so bad day for her as per daughter, she was confused, sleeping a lot, could not take her medication, she could not stand up. At baseline she walks about 15-21 feet. Then daughter noticed that she was becoming more hypoxic with oxygen dropped to 59% while on 3 L, she bumped up her oxygen to 4.5 L per minute and saturation improved to 83% as per daughter. So she called EMS for her. Patient is awake and alert, she notes she is in the current hospital in [place], she thought its 05/30/2022. And she is oriented to person as well. She denies any chest pain or dyspnea. She has her insight into her nose. She denies headache or weakness or numbness. No vomiting or diarrhea actually she is constipat she denies urinary symptoms but Doppler reports decreased urine output, She never smoked, she does not drink alcohol. Patient is hemodynamically stable, she is slightly tachypneic and 20 and hypoxic at 91% oxygen saturation on 2 L/m CBC is unremarkable, INR 1.1, arterial blood gas showing slightly low pH 7.34, high pCO2 73 and low pO2 at 60 Sodium 137, carbon dioxide elevated 39, creatinine high at 1.13, compared to baseline of 0.7-0.8 Liver enzymes not elevated, troponin negative and proBNP is low 587. Urine analysis is normal Coronavirus not detected Chest x-ray: Congestive heart failure with patchy atelectasis. Pulmonary navin estion improved compared to last exam CTA from 07/2021: No pulmonary embolism. Bilateral pulmonary patchy infiltrates and atelectasis. 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 Cardiology and pulmonary team consulted. 11/01/2021 Patient is more sleepy today although she awakes to verbal and tactile stimuli and answers some questions but she looks also slow. Most likely this could be related to her hypothyroidism. Her levothyroxine was started today at 37.5 g and increased for tomorrow at 50 g daily. But because she is also on Eliquis we will order CT of the brain to rule out intracranial bleed or acute pathology. She is hemodynamically stable, her oxygen is status improved and currently she is on 4 L/m which is close to her home dose of 3 L/m. Echocardiogram showed ejection fraction of 55-60% with moderate aortic stenosis. She remains on Eliquis 5 mg, IV Lasix 40 mg twice daily. Also we put the patient on a fluid restriction 1500 mL per day. Continue with Symbicort and albuterol when necessary 11/02/2021 Patient is more awake and interactive today. She has better appetite. She denies any specific symptoms. No dyspnea or tachypnea while sitting in bed most of the time. Minimal cough and no chest pain, no GI or urinary symptoms. Chest x-ray showing atelectasis and cardiomegaly. Labs showing mild pancytopenia with WBC 4.1, hemoglobin 10.3 and platelet count 123. She remains on a fluid restriction. She remains on IV Lasix 40 mg twice daily. Extremities on levothyroxine 50 units. We will check thyroid function test and B12 and folate. 11/03/2021 patient mentation is improving however she still lethargic and very weak Patient severely low hypothyroidism case. Levothyroid replacement therapy is a started. A shunt on 75 g daily with recommendation to check thyroid function tests in one month. Also vitamin B12 is deficient less than 150 we going to replace it with IM dose in 3 days and then continue with oral. Since she is on a blood thinner she'll be at risk of hematoma however it is thought that benefit more than risk. She remains on IV Lasix 40 mg 3 times a day. Potassium 2.9 been placed on monitored. Magnesium stable at 2.2. Patient will benefit from ECF for rehab upon discharge 11/04/2021 Patient is seen and evaluated in follow-up this morning having some abdominal discomfort and per nursing staff bowel sounds are sluggish and patient had an episode of liquid stool last night and denies passing gas. Patient underwent abdominal and chest x-ray this morning which showed dilatation of large and small bowel loops an x-ray notes to correlate for possible bowel obstruction versus colonic ileus and have consulted general surgery and an order for a CT abdomen and pelvis is ordered and pending. We'll make the patient nothing by mouth and discuss further with surgery once CT abdomen is done. Pulmonary also following. 11/05/2021 Patient is seen and evaluated this morning and reports to some abdominal improvement although continues with distention and feeling bloated. Per nursing staff patient is having large amounts of gas and up to the commode multiple times with assistance although no bowel movement today. General surgery f ollowing for possible ileus. Patient with continued shortness of breath and pulmonary following and will order chest x-ray. Cardiology also following Review of systems: Constitutional: No reports of fatigue, fever, or chills Cardiovascular: No reports of chest pain or palpitations Respiratory: No reports of worsening shortness of breath or cough GI: No reports of nausea, vomiting, or diarrhea, reports abdominal pain and bloating, reports passing gas, feels less distended : No reports of dysuria or retention Neurovascular: reports of generalized weakness All medications have been reviewed Active Medications Acetazolamide (Acetazolamide 250 Mg Tab) 250 mg PO DAILY [facility] Last Admin: 11/05/21 12:45 Dose: 250 mg Documented by: Albuterol Sulfate (Albuterol Nebulized 2.5 Mg/3 Ml) 2.5 mg INHALATION RT-QID PRN PRN Reason: Shortness Of Breath Apixaban (Apixaban 5 Mg Tab) 5 mg PO BID [facility]; Protocol Last Admin: 11/05/21 10:07 Dose: 5 mg Documented by: Atorvastatin Calcium (Atorvastatin 40 Mg Tab) 40 mg PO HS@2099 [facility] Last Admin: 11/04/21 22:16 Dose: Not Given Documented by: Bisacodyl (Bisacodyl 10 Mg Supp) 10 mg RECTAL DAILY [facility] Last Admin: 11/05/21 10:03 Dose: 10 mg Documented by: Budesonide/Formoterol Fumarate (Symbicort 160-4.5 Mcg Inhaler) 2 puff INHALATION RT-BID@0900,2099 [facility] Last Admin: 11/05/21 09:57 Dose: Not Given Documented by: Clobetasol Propionate (Clobetasol Prop 0.05% Cr 15gm) 1 applic TOPICAL Q12H [facility] Last Admin: 11/05/21 10:07 Dose: 1 applic Documented by: Cyanocobalamin (Cyanocobalamin 1,000 Mcg/Ml 1 Ml Vial) 1,000 mcg IM DAILY [facility] Stop: 11/06/21 20:01 Last Admin: 11/05/21 10:06 Dose: 1,000 mcg Documented by: Cyanocobalamin (Cyanocobalamin 500 Mcg Tab) 1,000 mcg PO DAILY [facility] Docusate Sodium (Docusate 100 Mg Cap) 100 mg PO DAILY PRN PRN Reason: Constipation Last Admin: 11/02/21 21:49 Dose: 100 mg Documented by: Duloxetine HCl (Duloxetine Hcl 20 Mg Capsule.Dr) 20 mg PO HS@2100 [facility] Last Admin: 11/04/21 22:16 Dose: 20 mg Documented by: Famotidine (Famotidine 20 Mg Tab) 20 mg PO DAILY [facility] Last Admin: 11/05/21 10:07 Dose: 20 mg Documented by: Fluticasone Propionate (Fluticasone 50mcg/[place] Nasal 16gm) 1 spray EA NOSTRIL DAILY PRN PRN Reason: Allergy Symptoms Furosemide (Furosemide 10 Mg/Ml 4 Ml Vial) 40 mg IV Q12H [facility] Last Admin: 11/05/21 12:45 Dose: 40 mg Documented by: Levothyroxine Sodium (Levothyroxine 75 Mcg Tab) 75 mcg PO DAILY@0630 [facility] Last Admin: 11/05/21 05:49 Dose: 75 mcg Documented by: Magnesium Hydroxide (Magnesium Hydroxide 2,400 Mg/10 Ml Cup) 2,400 mg PO DAILY [facility] Last Admin: 11/05/21 10:07 Dose: 2,400 mg Documented by: Metoprolol Succinate (Metoprolol Succinate (Er) 25 Mg Tab.Er.24h) 25 mg PO DAILY@0900 [facility] Last Admin: 11/05/21 10:06 Dose: 25 mg Documented by: Miscellaneous Information (Potassium Replacement Protocol 1 Each Misc) 1 each MISCELLANE DAILY PRN; Protocol PRN Reason: Per Protocol Miscellaneous Information (Potassium Replacement Protocol 1 Each Misc) 1 each MISCELLANE DAILY PRN; Protocol PRN Reason: Per Protocol Pregabalin (Pregabalin 75 Mg Cap) 150 mg PO TID@0600,1400,2200 [facility] Last Admin: 11/05/21 14:17 Dose: 150 mg Documented by: Ropinirole HCl (Ropinirole Hcl 1 Mg Tab) 3 mg PO BID@0900,2100 [facility] Last Admin: 11/05/21 10:06 Dose: 3 mg Documented by: Physical exam: GENERAL: The patient is alert and oriented x3. Well developed, well nourished. Morbidly obese. Very lethargic at times and generally weak HEENT: Pupils are round and equally reacting to light. EOMI. No scleral icterus. No conjunctival pallor. Normocephalic, atraumatic. No pharyngeal erythema. No thyromegaly. CARDIOVASCULAR: S1 and S2 muffled PULMONARY: diminished breath sounds with some scattered rhonchi noted ABDOMEN: Soft, obese mildly tender, distended, bowel sounds. No palpable organomegaly. MUSCULOSKELETAL: No joint swelling or deformity. EXTREMITIES: No cyanosis, clubbing. Bilateral patellar like edema NEUROLOGICAL: Gross neurological examination did not reveal any focal deficits. diffusely weak SKIN: No rashes. no petechiae. Assessment: Acute hypoxic hypercapnic respiratory failure Acute Hypothyroidism abdominal pain and distention, possible ileus Severe vitamin B12 deficiency Pancytopenia secondary to ineffective erythropoiesis from vitamin B12 deficiency Acute on chronic Diastolic CHF, EF 55-60% Acute on chronic hypoxic respiratory failure Acute COPD exacerbation possible obesity hypoventilation syndrome Mild acute kidney injury Paroxysmal atrial fibrillation on Eliquis History of CVA/TIA Hypertension History of sleep apnea Chronic back pain History of ovarian cancer History of depression Morbid obesity with BMI of 48.5 DVT prophylaxis: Eliquis GI Prophylaxis: Pepcid NO code Plan: This is a pleasant 86 years old female who presents with acute dyspnea and bilateral pulmonary infiltrate. Patient continues on IV Lasix along with inhaled steroids and bronchodilators and oxygen. Continue with BiPAP as needed and at night Cardiology and pulmonary following, general surgery following for possible ileus, recommending close monitoring and discussed endoscopic intervention and patient refusing at this time. Family at the bedside PT/OT: Recommended subacute rehab, social work following, patient will return to [facility] once stable, will need insurance auth for [facility] Continue NPO for now and appreciate input and recommendations from surgery Dr. Smith, continue bowel regimen Prognosis is guarded The impression and plan of care has been dictated by Lorna Garg, Nurse Practitioner as directed. Dr. Vega MD I have performed a history and examination and MDM of this patient, discussed the same with the dictator, and agree with the dictator's assessment and plan as written ,documented as a scribe. Based on total visit time, I have performed more than 50% of the visit. Objective - Vital Signs Vital signs: Vital Signs Temp 98.5 F 11/05/21 08:00 Pulse 60 11/05/21 09:08 Resp 20 11/05/21 09:08 BP 130/75 11/05/21 08:00 Pulse Ox 93 L 11/05/21 08:00 Intake & Output 11/04/21 11/05/21 11/05/21 18:59 06:59 18:59 Intake Total 450 Output Total 350 400 Balance 100 -400 Weight 113.5 kg 113 kg Intake: Intake, IV Titration 450 Amount Sodium Chloride 0.9% 1, 450 000 ml @ 50 mls/hr IV . Q20H [facility] Rx#:[id number] Output: Urine 350 400 Other: Voiding Method Indwelling Catheter Indwelling Catheter Indwelling Catheter # Bowel Movements 1 1 - Labs CBC & Chem 7: 11/04/21 06:01 11/05/21 06:07 Labs: Abnormal Lab Results - Last 24 Hours (Table) 11/04/21 11/04/21 11/05/21 Range/Units 06:01 06:01 06:07 Retic Count 2.03 H (0.10-1.80) % Potassium 3.2 L (3.5-5.1) mmol/L Chloride 95 L 92 L (96-109) mmol/L Carbon Dioxide 38.5 H 44 H* (20.0-27.5) mmol/L Conjugated Bilirubin <0.20 L (0.20-0.40) mg/dL Total Protein 6.1 L (6.2-8.2) g/dL
[2021-11-06] MEDS: LEVOTHYROXINE 75 MCG TAB PO SCH (05:42)
[2021-11-06] MEDS: PREGABALIN 75 MG CAP PO SCH ×3 (05:42→21:27)
[2021-11-06] MEDS: ALBUTEROL NEBULIZED 2.5 MG/3 ML INHALATION PRN ×3 (08:38→20:07)
[2021-11-06] MEDS: SYMBICORT 160-4.5 MCG INHALER INHALATION SCH ×2 (08:38→20:07)
[2021-11-06] MEDS ORDERED: CYANOCOBALAMIN 1,000 MCG/ML 1 ML VIAL IM SCH (09:00)
[2021-11-06] MEDS: FAMOTIDINE 20 MG TAB PO SCH (09:16)
[2021-11-06] MEDS: METOPROLOL SUCCINATE (ER) 25 MG TAB.ER.24H PO SCH (09:16)
[2021-11-06] MEDS: APIXABAN 5 MG TAB PO SCH (09:16)
[2021-11-06] MEDS: acetaZOLAMIDE 250 MG TAB PO SCH (09:16)
[2021-11-06] MEDS: MAGNESIUM HYDROXIDE 2,400 MG/10 ML CUP PO SCH (09:17)
[2021-11-06] MEDS: bisacodyL 10 MG SUPP RECTAL SCH (09:17)
[2021-11-06] MEDS: CYANOCOBALAMIN 1,000 MCG/ML 1 ML VIAL IM SCH (09:32)
[2021-11-06] MEDS: CLOBETASOL PROP 0.05% CR 15GM TOPICAL SCH ×2 (10:12→21:25)
--- NOTE | 2021-11-06 11:04 | P.PN ---
Subjective Progress Note Date: 11/06/21 HISTORY OF PRESENT ILLNESS: This is a 86-year-old female with a past medical history significant for congestive heart failure, aortic stenosis, paroxysmal atrial fibrillation, obstructive sleep apnea, and COPD with home oxygen use. Patient follows in the office with Dr. Watts. We have been asked to see the patient in consultation for CHF. Patient examined at the bedside. Patient states she came to the hospital because she was extremity and shortness of breath over the past few days. The patient was found to be in CHF. She was started on IV Lasix. The patient is currently on a BiPAP with 45% FiO2. She states her breathing has improved since going to the hospital. She denies any chest pain or pressure. * Chest xray congestive heart failure with patchy atelectasis. Pulmonary congestion improved compared to last exam * Laboratory data: WBC 5.6. Hemoglobin 12.2. Platelet count 114. Sodium 137. Potassium 4.4. BUN 17. Creatinine 1.13. Troponin negative 2. ProBNP 587. * Current home cardiac medications include glucose 5 mg twice a day, Lipitor 40 mg daily, Lasix 40 mg daily, metoprolol succinate 25 mg daily, Diamox 250 mg daily * Most recent echocardiogram obtained in July 2021 revealed ejection fraction 65-70%, mild MR, mild TR * Patient had an echocardiogram completed in June 2020 revealing ejection fraction 60% with moderate aortic stenosis * Cardiac catheterization history: January 2011 revealed 30% proximal LAD stenosis 11/01/2021 Patient examined this morning at the bedside. Patient is on nasal cannula this morning. She reports improvement in her SOB. She denies chest pain or pressure. She remains on IV lasix 40mg q8 hours. Vital signs are stable. Labs from this morning are currently pending. Echocardiogram completed revealing ejection fraction 55-60%, moderate aortic stenosis, mild MR, mild TR, and moderate pulm onary hypertension 11/02/2021 Patient denies any new concerns. Repeat potassium is 3.4 will be replaced. Hemoglobin at 10.5, platelet count 123. She is continued on Lasix 40 mg IV every 12 hours. 11/03/2021 Patient is currently on CPAP. She has been on IV Lasix 40 mg every 12 hours with good urine output, Ramos catheter in place. Repeat blood work reveals potassium of 2.9 which will be replaced, BUN 13 and creatinine 0.8. Hemoglobin 11.2. TSH is 70.2 and free T4 0.120. Patient has been started on levothyroxine by attending. 11/04/2021 Patient examined this morning. She is sitting up in the chair. She denies chest pain or pressure. Currently denies SOB. She remains on IV lasix 40mg Q12 hours. Fluid balance over the last 24 hours is -1754 mL. Chest x-ray this morning reveals bilateral perihilar and lower lobe infiltrate correlate for pneumonia. 11/05/2021 Patient denies chest pain or pressure. Denies SOB. She remains on IV lasix. She was receiving IV fluids as well which we will discontinue. Creatinine 0.87. 11/06/2021 Patient examined this morning at the bedside. Patient denies chest pain or pressure. She currently denies shortness of breath. She states she has not been out of bed yet this morning. She remains on IV Lasix. Labs from this morning are currently pending. PHYSICAL EXAM: VITAL SIGNS: Reviewed. GENERAL: Well-developed in no acute distress. HEENT: Head is normocephalic. Pupils are equal, round. Sclerae anicteric. Mucous membranes of the mouth are moist. Neck supple. No JVD or thyromegaly LUNGS: Respirations even and unlabored. Lungs diminished to auscultation bilaterally with a few scattered crackles. HEART: Regular rate and rhythm. S1 and S2 heard. Systolic murmur noted ABDOMEN: Soft. Nondistended. Nontender. EXTREMITIES: Normal range of motion. No clubbing or cyanosis. Peripheral pulses intact. 2+ bilateral lower extremity edema NEUROLOGIC: Awake and alert. Oriented x 3. ASSESSMENT: Shortness of breath Acute on chronic congestive heart failure with preserved ejection fraction Aortic stenosis Acute on chronic hypercapnic respiratory failure COPD Obstructive sleep apnea on CPAP outpatient Paroxysmal atrial fibrillation Hypertension Hyperlipidemia Hypothyroidism Colonic ileus PLAN: Continue current cardiac medications Continue IV Lasix. Decrease dose to once daily. Accurate I&O Daily weights Monitor kidney function. Await morning labs. Further recommendations pending patient's course Nurse practitioner note has been reviewed by physician. Signing provider agrees with the documented findings, assessment, and plan of care. Objective - Vital Signs Vital signs: Vital Signs Temp 97.7 F 11/06/21 07:58 Pulse 56 L 11/06/21 08:54 Resp 20 11/06/21 07:58 BP 110/68 11/06/21 07:58 Pulse Ox 93 L 11/06/21 08:42 Intake & Output 11/05/21 11/06/21 11/06/21 18:59 06:59 18:59 Intake Total 580 Output Total 1000 Balance 580 -1000 Intake: Intake, IV Titration 580 Amount Potassium Chloride 10 meq 400 In Water For Injection 1 100ml.bag @ 100 mls/hr IVPB Q1HR [facility] Rx#: [id number] Sodium Chloride 0.9% 1, 180 000 ml @ 50 mls/hr IV . Q20H [facility] Rx#:[id number] Output: Urine 1000 Other: Voiding Method Indwelling Catheter Indwelling Catheter Indwelling Catheter - Labs CBC & Chem 7: 11/04/21 06:01 11/05/21 06:07
[2021-11-06 11:42] LABS: Basophils # (A) 0.1 k/uL (0-0.2); Basophils % (A) 1 %; Eosinophils # (A) 0.2 k/uL (0-0.7); Eosinophils % (A) 3 %; HCT 41.9 % (34.0-46.0); HGB 12.9 gm/dL (11.4-16.0); Hypochromasia Marked; Lymphocytes # (A) 1.2 k/uL (1.0-4.8); Lymphocytes % (A) 20 %; MCH 32.5 pg (25.0-35.0); MCHC 30.7 g/dL (31.0-37.0); MCV 105.6 fL (80.0-100.0); Macrocytosis Moderate; Mean Platelet Volume 9.6; Monocytes # (A) 0.3 k/uL (0-1.0); Monocytes % (A) 4 %; Neutrophils # (A) 4.5 k/uL (1.3-7.7); Neutrophils % (A) 71 %; Platelet Count 125 k/uL (150-450); RBC 3.97 m/uL (3.80-5.40); RDW 15.3 % (11.5-15.5); WBC 6.3 k/uL (3.8-10.6)
--- NOTE | 2021-11-06 12:15 | P.PN ---
Subjective Progress Note Date: 11/06/21 CHIEF COMPLAINT: Abdominal ileus HISTORY OF PRESENT ILLNESS: Patient is sitting up at bedside chair. She did work with physical therapy. She reports no abdominal pain today. Her abdominal distention is improving. She reports having flatus. She denies any bowel movement. She passed liquid with the suppository. She denies any nausea or vomiting. Computed tomography scan abdomen and pelvis show markedly distention of the transverse colon as described above. Associated apparent wall thickening and reduced caliber of the distal sigmoid colon, underlying lesion or stricture at that location cannot exclude. Dr. Smith discussed options of endoscopy with patient and family. They are not interested at this time. Afebrile. WBC 6.3 hemoglobin 12.9 platelets 125. BMP pending PHYSICAL EXAM: VITAL SIGNS: Reviewed. GENERAL: Well-developed in no acute distress. HEENT: No sclera icterus. Extraocular movements grossly intact. Moist buccal mucosa. Head is atraumatic, normocephalic. ABDOMEN: Abdomen is distended but decreased from yesterday. Nontender. NEUROLOGIC: Alert and oriented. Cranial nerves II through XII grossly intact. ASSESSMENT: 1. Colonic ileus 2. Hypokalemia 3. Acute CHF exacerbation followed by cardiology PLAN: -Continue supportive care -Keep patient nothing by mouth -Potassium is being replaced -Continue stool softeners and Dulcolax suppository -Family and patient have declined endoscopy Physician Short Order Fry Cook note has been reviewed by physician. Signing provider agrees with the documented findings, assessment, and plan of care. I have personally seen and examined the patient, reviewed the MAINTENANCE [employer] /PAs history, exam and MDM and agree with the assessment and plan as written. Based on total visit time, I have performed more than 50% of the visit. As above: Patient did have flatus today but no bowel movement. Patient says her abdomen is less distended. On exam she is definitely less distended at this time. Continue diet. Continue stool softeners. Objective - Vital Signs Vital signs: Vital Signs Temp 98.2 F 11/06/21 12:04 Pulse 54 L 11/06/21 12:04 Resp 20 11/06/21 12:04 BP 98/62 11/06/21 12:04 Pulse Ox 94 L 11/06/21 12:04 Intake & Output 11/05/21 11/06/21 11/06/21 18:59 06:59 18:59 Intake Total 580 Output Total 1000 250 Balance 580 -1000 -250 Intake: Intake, IV Titration 580 Amount Potassium Chloride 10 meq 400 In Water For Injection 1 100ml.bag @ 100 mls/hr IVPB Q1HR [facility] Rx#: [id number] Sodium Chloride 0.9% 1, 180 000 ml @ 50 mls/hr IV . Q20H [facility] Rx#:[id number] Output: Urine 1000 250 Other: Voiding Method Indwelling Catheter Indwelling Catheter Indwelling Catheter # Bowel Movements 1 - Labs CBC & Chem 7: 11/06/21 11:23 11/05/21 06:07 Labs: Abnormal Lab Results - Last 24 Hours (Table) 11/06/21 Range/Units 11:23 MCV 105.6 H (80.0-100.0) fL MCHC 30.7 L (31.0-37.0) g/dL Plt Count 125 L (150-450) k/uL
[2021-11-06] MEDS: CYANOCOBALAMIN 500 MCG TAB PO SCH (12:38)
[2021-11-06 20:02] LABS: African American GFR (CKD) 67.6 (60.0-200.0); Anion Gap 11.4 mmol/L (10.00-18.00); BUN/Creat Ratio 14.67 Ratio (12.00-20.00); Blood Urea Nitrogen 13.2 mg/dL (9.0-27.0); Calcium 9.6 mg/dL (8.7-10.3); Carbon Dioxide 38.6 mmol/L (20.0-27.5); Non-African American GFR(CKD) 58.3 (60.0-200.0); Potassium 3.5 mmol/L (3.5-5.5)
[2021-11-06] MEDS: DULoxetine HCL 20 MG CAPSULE.DR PO SCH (21:24)
[2021-11-06] MEDS: ATORVASTATIN 40 MG TAB PO SCH (21:25)
[2021-11-07] MEDS: LEVOTHYROXINE 75 MCG TAB PO SCH (05:55)
[2021-11-07] MEDS: PREGABALIN 75 MG CAP PO SCH ×3 (05:55→21:56)
[2021-11-07 07:35] LABS: Basophils % (A) 0 %; Eosinophils # (A) 0.1 k/uL (0-0.7); Eosinophils % (A) 2 %; HCT 37.8 % (34.0-46.0); HGB 11.4 gm/dL (11.4-16.0); Hypochromasia Marked; Lymphocytes # (A) 0.7 k/uL (1.0-4.8); Lymphocytes % (A) 13 %; MCH 31.7 pg (25.0-35.0); MCHC 30.1 g/dL (31.0-37.0); MCV 105.5 fL (80.0-100.0); Macrocytosis Moderate; Mean Platelet Volume 9.3; Monocytes # (A) 0.3 k/uL (0-1.0); Monocytes % (A) 5 %; Neutrophils # (A) 4.5 k/uL (1.3-7.7); Neutrophils % (A) 79 %; Platelet Count 106 k/uL (150-450); RBC 3.58 m/uL (3.80-5.40); RDW 15.2 % (11.5-15.5); WBC 5.7 k/uL (3.8-10.6)
[2021-11-07 07:47] LABS: African American GFR (CKD) 62 (>60 ml/min/1.73 sqM); Blood Urea Nitrogen 15 mg/dL (7-17); Calcium 8.8 mg/dL (8.4-10.2); Chloride 93 mmol/L (98-107); Glucose 70 mg/dL (74-99); Non-African American GFR(CKD) 54 (>60 ml/min/1.73 sqM); Potassium 3.3 mmol/L (3.5-5.1); Sodium 139 mmol/L (137-145)
[2021-11-07 07:54] LABS: Anion Gap 5 mmol/L
[2021-11-07] MEDS: FUROSEMIDE 10 MG/ML 4 ML VIAL IV SCH (08:03)
[2021-11-07] MEDS: MAGNESIUM HYDROXIDE 2,400 MG/10 ML CUP PO SCH (08:03)
[2021-11-07] MEDS: CYANOCOBALAMIN 500 MCG TAB PO SCH (08:03)
[2021-11-07] MEDS: bisacodyL 10 MG SUPP RECTAL SCH (08:03)
[2021-11-07] MEDS: acetaZOLAMIDE 250 MG TAB PO SCH (08:03)
[2021-11-07] MEDS: FAMOTIDINE 20 MG TAB PO SCH (08:04)
[2021-11-07] MEDS: CLOBETASOL PROP 0.05% CR 15GM TOPICAL SCH ×2 (08:04→21:56)
[2021-11-07] MEDS: METOPROLOL SUCCINATE (ER) 25 MG TAB.ER.24H PO SCH (08:04)
[2021-11-07 08:12] LABS: Carbon Dioxide 41 mmol/L (22-30)
[2021-11-07] MEDS ORDERED: POTASSIUM CHLORIDE ER 20 MEQ TAB.ER PO STA (08:32)
--- NOTE | 2021-11-07 08:57 | P.PN ---
Subjective Progress Note Date: 11/06/21 This is a pleasant 86 years old female with past medical history of Atrial Fib rillation, on Eliquis, heart Failure, CVA/TIA, Hypertension, Pneumonia, Sleep Apnea/CPAP/BIPAP, chronic back pain, ovarian cancer, C-DIFF infection , Depression Presents because of increased confusion, shortness of breath, weakness and inability to ambulate Patient was on BiPAP in bed comfortable, information obtained with the help of the daughter Jodi at bedside As per daughter patient is on 3 L/m of oxygen at home and she is on BiPAP at [facility] since July when she was sick. Her store clerk cashier is Dr. Bearden. 2 days ago patient was tired but, however yesterday she become really sick, it was so bad day for her as per daughter, she was confused, sleeping a lot, could not take her medication, she could not stand up. At baseline she walks about 15-21 feet. Then daughter noticed that she was becoming more hypoxic with oxygen dropped to 59% while on 3 L, she bumped up her oxygen to 4.5 L per minute and saturation improved to 83% as per daughter. So she called EMS for her. Patient is awake and alert, she notes she is in the current hospital in [place], she thought its 05/30/2022. And she is oriented to person as well. She denies any chest pain or dyspnea. She has her insight into her nose. She denies headache or weakness or numbness. No vomiting or diarrhea actually she is constipat she denies urinary symptoms but Doppler reports decreased urine output, She never smoked, she does not drink alcohol. Patient is hemodynamically stable, she is slightly tachypneic and 20 and hypoxic at 91% oxygen saturation on 2 L/m CBC is unremarkable, INR 1.1, arterial blood gas showing slightly low pH 7.34, high pCO2 73 and low pO2 at 60 Sodium 137, carbon dioxide elevated 39, creatinine high at 1.13, compared to baseline of 0.7-0.8 Liver enzymes not elevated, troponin negative and proBNP is low 587. Urine analysis is normal Coronavirus not detected Chest x-ray: Congestive heart failure with patchy atelectasis. Pulmonary navin estion improved compared to last exam CTA from 07/2021: No pulmonary embolism. Bilateral pulmonary patchy infiltrates and atelectasis. 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 Cardiology and pulmonary team consulted. 11/01/2021 Patient is more sleepy today although she awakes to verbal and tactile stimuli and answers some questions but she looks also slow. Most likely this could be related to her hypothyroidism. Her levothyroxine was started today at 37.5 g and increased for tomorrow at 50 g daily. But because she is also on Eliquis we will order CT of the brain to rule out intracranial bleed or acute pathology. She is hemodynamically stable, her oxygen is status improved and currently she is on 4 L/m which is close to her home dose of 3 L/m. Echocardiogram showed ejection fraction of 55-60% with moderate aortic stenosis. She remains on Eliquis 5 mg, IV Lasix 40 mg twice daily. Also we put the patient on a fluid restriction 1500 mL per day. Continue with Symbicort and albuterol when necessary 11/02/2021 Patient is more awake and interactive today. She has better appetite. She denies any specific symptoms. No dyspnea or tachypnea while sitting in bed most of the time. Minimal cough and no chest pain, no GI or urinary symptoms. Chest x-ray showing atelectasis and cardiomegaly. Labs showing mild pancytopenia with WBC 4.1, hemoglobin 10.3 and platelet count 123. She remains on a fluid restriction. She remains on IV Lasix 40 mg twice daily. Extremities on levothyroxine 50 units. We will check thyroid function test and B12 and folate. 11/03/2021 patient mentation is improving however she still lethargic and very weak Patient severely low hypothyroidism case. Levothyroid replacement therapy is a started. A shunt on 75 g daily with recommendation to check thyroid function tests in one month. Also vitamin B12 is deficient less than 150 we going to replace it with IM dose in 3 days and then continue with oral. Since she is on a blood thinner she'll be at risk of hematoma however it is thought that benefit more than risk. She remains on IV Lasix 40 mg 3 times a day. Potassium 2.9 been placed on monitored. Magnesium stable at 2.2. Patient will benefit from [facility] for rehab upon discharge 11/04/2021 Patient is seen and evaluated in follow-up this morning having some abdominal discomfort and per nursing staff bowel sounds are sluggish and patient had an episode of liquid stool last night and denies passing gas. Patient underwent abdominal and chest x-ray this morning which showed dilatation of large and small bowel loops an x-ray notes to correlate for possible bowel obstruction versus colonic ileus and have consulted general surgery and an order for a CT abdomen and pelvis is ordered and pending. We'll make the patient nothing by mouth and discuss further with surgery once CT abdomen is done. Pulmonary also following. 11/05/2021 Patient is seen and evaluated this morning and reports to some abdominal improvement although continues with distention and feeling bloated. Per nursing staff patient is having large amounts of gas and up to the commode multiple times with assistance although no bowel movement today. General surgery f ollowing for possible ileus. Patient with continued shortness of breath and pulmonary following and will order chest x-ray. Cardiology also following 11/06/2021 Patient is seen today in follow-up continues to have some abdominal bloating although feels it is slightly improved. Patient reports to having a bowel movement yesterday and reports to continued gas. Patient with indwelling Ramos catheter for retention and patient was recently resumed on oral anticoagulant and started having some hematuria noted in the Ramos. Will hold Eliquis and monitor closely for any further signs of active bleeding. Hemoglobin is stable at 12.9. Patient denies any painful burning or pressure or bladder discomfort. Patient is afebrile. Patient denies any worsening shortness of breath or chest pain. Review of systems: Constitutional: No reports of fatigue, fever, or chills Cardiovascular: No reports of chest pain or palpitations Respiratory: No reports of worsening shortness of breath or cough GI: No reports of nausea, vomiting, or diarrhea, reports abdominal pain and bloating, reports passing gas, feels less distended : No reports of dysuria or retention Neurovascular: reports of generalized weakness All medications have been reviewed Active Medications Acetazolamide (Acetazolamide 250 Mg Tab) 250 mg PO DAILY [facility] Last Admin: 11/07/21 08:03 Dose: 250 mg Documented by: Albuterol Sulfate (Albuterol Nebulized 2.5 Mg/3 Ml) 2.5 mg INHALATION RT-QID PRN PRN Reason: Shortness Of Breath Last Admin: 11/06/21 20:07 Dose: 2.5 mg Documented by: Atorvastatin Calcium (Atorvastatin 40 Mg Tab) 40 mg PO HS@2100 [facility] Last Admin: 11/06/21 21:25 Dose: 40 mg Documented by: Bisacodyl (Bisacodyl 10 Mg Supp) 10 mg RECTAL DAILY [facility] Last Admin: 11/07/21 08:03 Dose: 10 mg Documented by: Budesonide/Formoterol Fumarate (Symbicort 160-4.5 Mcg Inhaler) 2 puff INHALATION RT-BID@0900,2100 [facility] Last Admin: 11/06/21 20:07 Dose: 2 puff Documented by: Clobetasol Propionate (Clobetasol Prop 0.05% Cr 15gm) 1 applic TOPICAL Q12H [facility] Last Admin: 11/07/21 08:04 Dose: 1 applic Documented by: Cyanocobalamin (Cyanocobalamin 500 Mcg Tab) 1,000 mcg PO DAILY [facility] Last Admin: 11/07/21 08:03 Dose: 1,000 mcg Documented by: Docusate Sodium (Docusate 100 Mg Cap) 100 mg PO DAILY PRN PRN Reason: Constipation Last Admin: 11/02/21 21:49 Dose: 100 mg Documented by: Duloxetine HCl (Duloxetine Hcl 20 Mg Capsule.Dr) 20 mg PO HS@2100 [facility] Last Admin: 11/06/21 21:24 Dose: 20 mg Documented by: Famotidine (Famotidine 20 Mg Tab) 20 mg PO DAILY [facility] Last Admin: 11/07/21 08:04 Dose: 20 mg Documented by: Fluticasone Propionate (Fluticasone 50mcg/[place] Nasal 16gm) 1 spray EA NOSTRIL DAILY PRN PRN Reason: Allergy Symptoms Furosemide (Furosemide 10 Mg/Ml 4 Ml Vial) 40 mg IV DAILY [facility] Last Admin: 11/07/21 08:03 Dose: 40 mg Documented by: Levothyroxine Sodium (Levothyroxine 75 Mcg Tab) 75 mcg PO DAILY@0630 [facility] Last Admin: 11/07/21 05:55 Dose: 75 mcg Documented by: Magnesium Hydroxide (Magnesium Hydroxide 2,400 Mg/10 Ml Cup) 2,400 mg PO DAILY [facility] Last Admin: 11/07/21 08:03 Dose: 2,400 mg Documented by: Metoprolol Succinate (Metoprolol Succinate (Er) 25 Mg Tab.Er.24h) 25 mg PO DAILY@0900 [facility] Last Admin: 11/07/21 08:04 Dose: 25 mg Documented by: Miscellaneous Information (Potassium Replacement Protocol 1 Each Misc) 1 each MISCELLANE DAILY PRN; Protocol PRN Reason: Per Protocol Pregabalin (Pregabalin 75 Mg Cap) 150 mg PO TID@0600,1400,2200 [facility] Last Admin: 11/07/21 05:55 Dose: 150 mg Documented by: Ropinirole HCl (Ropinirole Hcl 1 Mg Tab) 3 mg PO BID@0900,2100 [facility] Last Admin: 11/07/21 08:04 Dose: 3 mg Documented by: Physical exam: GENERAL: The patient is alert and oriented x3. Well developed, well nourished. Morbidly obese. Very lethargic at times and generally weak HEENT: Pupils are round and equally reacting to light. EOMI. No scleral icterus. No conjunctival pallor. Normocephalic, atraumatic. No pharyngeal erythema. No thyromegaly. CARDIOVASCULAR: S1 and S2 muffled PULMONARY: diminished breath sounds with some scattered rhonchi noted ABDOMEN: Soft, obese mildly tender, distended, bowel sounds. No palpable organomegaly. MUSCULOSKELETAL: No joint swelling or deformity. EXTREMITIES: No cyanosis, clubbing. Bilateral patellar like edema NEUROLOGICAL: Gross neurological examination did not reveal any focal deficits. diffusely weak SKIN: No rashes. no petechiae. Assessment: Acute hypoxic hypercapnic respiratory failure Acute Hypothyroidism abdominal pain and distention, possible ileus Hematuria Severe vitamin B12 deficiency Pancytopenia secondary to ineffective erythropoiesis from vitamin B12 deficiency Acute on chronic Diastolic CHF, EF 55-60% Acute on chronic hypoxic respiratory failure Acute COPD exacerbation possible obesity hypoventilation syndrome Mild acute kidney injury Paroxysmal atrial fibrillation on Eliquis History of CVA/TIA Hypertension History of sleep apnea Chronic back pain History of ovarian cancer History of depression Morbid obesity with BMI of 48.5 DVT prophylaxis: Eliquis GI Prophylaxis: Pepcid NO code Plan: This is a pleasant 86 years old female who presents with acute dyspnea and bilateral pulmonary infiltrate. Patient continues on IV Lasix along with inhaled steroids and bronchodilators and oxygen. Continue with BiPAP as needed and at night. Patient has not required BiPAP. Cardiology and pulmonary following, general surgery following for possible ileus, recommending close monitoring and discussed endoscopic intervention and patient refusing at this time. Family at the bedside Patient noted to have some hematuria noted in the Ramos and was recently resumed on Eliquis and subsequently some blood was noted in the urine. Urine with culture ordered and will hold anticoagulants for now and monitor closely. Hemoglobin is stable at this time and will repeat labs. PT/OT: Recommended subacute rehab, social work following, patient will return to [facility] once stable, will need insurance auth for [facility] Continue NPO for now and appreciate input and recommendations from surgery Dr. Smith, continue bowel regimen Prognosis is guarded The impression and plan of care has been dictated by Lorna Garg, Nurse Practitioner as directed. Dr. Vega MD I have performed a history and examination and MDM of this patient, discussed the same with the dictator, and agree with the dictator's assessment and plan as written ,documented as a scribe. Based on total visit time, I have performed more than 50% of the visit. Objective - Vital Signs Vital signs: Vital Signs Temp 97.7 F 11/06/21 07:58 Pulse 56 L 11/06/21 08:54 Resp 20 11/06/21 07:58 BP 110/68 11/06/21 07:58 Pulse Ox 93 L 11/06/21 08:42 Intake & Output 11/05/21 11/06/21 11/06/21 18:59 06:59 18:59 Intake Total 580 Output Total 1000 Balance 580 -1000 Intake: Intake, IV Titration 580 Amount Potassium Chloride 10 meq 400 In Water For Injection 1 100ml.bag @ 100 mls/hr IVPB Q1HR [facility] Rx#: [id number] Sodium Chloride 0.9% 1, 180 000 ml @ 50 mls/hr IV . Q20H [facility] Rx#:[id number] Output: Urine 1000 Other: Voiding Method Indwelling Catheter Indwelling Catheter Indwelling Catheter - Labs CBC & Chem 7: 11/07/21 07:07 11/07/21 07:07
[2021-11-07] MEDS: ALBUTEROL NEBULIZED 2.5 MG/3 ML INHALATION PRN (09:21)
[2021-11-07] MEDS: SYMBICORT 160-4.5 MCG INHALER INHALATION SCH ×2 (09:21→20:08)
[2021-11-07 11:20] LABS: Appearance,Urine Cloudy (Clear); Bilirubin,Urine Negative (Negative); Blood,Urine Moderate (Negative); Color,Urine Yellow; Glucose,Urine (UA) Negative (Negative); Ketones,Urine Trace (Negative); Leukocyte Esterase,Urine Large (Negative); Nitrite,Urine Negative (Negative); PH, Urine 7.5 (5.0-8.0); Protein,Urine Trace (Negative); RBC,Urine >182 /hpf (0-5); Specific Gravity,Urine 1.008 (1.001-1.035); Urobilinogen,Urine <2.0 mg/dL (<2.0); WBC,Urine 73 /hpf (0-5)
--- NOTE | 2021-11-07 11:43 | P.PN ---
Subjective HISTORY OF PRESENT ILLNESS: This is a 86-year-old female with a past medical history significant for congestive heart failure, aortic stenosis, paroxysmal atrial fibrillation, obstructive sleep apnea, and COPD with home oxygen use. Patient follows in the office with Dr. Watts. We have been asked to see the patient in consultation for CHF. Patient examined at the bedside. Patient states she came to the hospital because she was extremity and shortness of breath over the past few days. The patient was found to be in CHF. She was started on IV Lasix. The patient is currently on a BiPAP with 45% FiO2. She states her breathing has improved since going to the hospital. She denies any chest pain or pressure. * Chest xray congestive heart failure with patchy atelectasis. Pulmonary congestion improved compared to last exam * Laboratory data: WBC 5.6. Hemoglobin 12.2. Platelet count 114. Sodium 137. Potassium 4.4. BUN 17. Creatinine 1.13. Troponin negative 2. ProBNP 587. * Current home cardiac medications include glucose 5 mg twice a day, Lipitor 40 mg daily, Lasix 40 mg daily, metoprolol succinate 25 mg daily, Diamox 250 mg daily * Most recent echocardiogram obtained in July 2021 revealed ejection fraction 65-70%, mild MR, mild TR * Patient had an echocardiogram completed in June 2020 revealing ejection fraction 60% with moderate aortic stenosis * Cardiac catheterization history: January 2011 revealed 30% proximal LAD stenosis 11/01/2021 Patient examined this morning at the bedside. Patient is on nasal cannula this morning. She reports improvement in her SOB. She denies chest pain or pressure. She remains on IV lasix 40mg q8 hours. Vital signs are stable. Labs from this morning are currently pending. Echocardiogram completed revealing ejection fraction 55-60%, moderate aortic stenosis, mild MR, mild TR, and moderate pulmonary hypertension 11/02/2021 Patient denies any new concerns. Repeat potassium is 3.4 will be replaced. Hemoglobin at 10.5, platelet count 123. She is continued on Lasix 40 mg IV ev ora 12 hours. 11/03/2021 Patient is currently on CPAP. She has been on IV Lasix 40 mg every 12 hours with good urine output, Ramos catheter in place. Repeat blood work reveals potassium of 2.9 which will be replaced, BUN 13 and creatinine 0.8. Hemoglobin 11.2. TSH is 70.2 and free T4 0.120. Patient has been started on levothyroxine by attending. 11/04/2021 Patient examined this morning. She is sitting up in the chair. She denies chest pain or pressure. Currently denies SOB. She remains on IV lasix 40mg Q12 hours. Fluid balance over the last 24 hours is -1754 mL. Chest x-ray this morning reveals bilateral perihilar and lower lobe infiltrate correlate for pneumonia. 11/05/2021 Patient denies chest pain or pressure. Denies SOB. She remains on IV lasix. She was receiving IV fluids as well which we will discontinue. Creatinine 0.87. 11/06/2021 Patient examined this morning at the bedside. Patient denies chest pain or pressure. She currently denies shortness of breath. She states she has not been out of bed yet this morning. She remains on IV Lasix. Labs from this morning are currently pending. 11/07 Patient seen and examined. Patient states overall her breathing has been fairly stable. She did use BiPAP overnight. Denies any chest pain or pressure. Denies any abdominal pain however still has not had a bowel movement. She has been nothing by mouth. Urine output has been somewhat marginal. Creatinine remains stable at 0.9. PHYSICAL EXAM: VITAL SIGNS: Reviewed. GENERAL: Well-developed in no acute distress. HEENT: Head is normocephalic. Pupils are equal, round. Sclerae anicteric. Mucous membranes of the mouth are moist. Neck supple. No JVD or thyromegaly LUNGS: Respirations even and unlabored. Lungs diminished to auscultation bilaterally with a few scattered crackles. HEART: Regular rate and rhythm. S1 and S2 heard. Systolic murmur noted ABDOMEN: Soft. Nondistended. Nontender. EXTREMITIES: Normal range of motion. No clubbing or cyanosis. Peripheral pulses intact. 1+ bilateral lower extremity edema NEUROLOGIC: Awake and alert. Oriented x 3. ASSESSMENT: Acute on chronic congestive heart failure with preserved ejection fraction Aortic stenosis Acute on chronic hypercapnic respiratory failure COPD Obstructive sleep apnea on CPAP outpatient Paroxysmal atrial fibrillation Hypertension Hyperlipidemia Hypothyroidism Colonic ileus PLAN: Continue current cardiac medications We will continue diuretics for 1 more day however if patient remains NPO for her ileus with likely stop Lasix for tomorrow. Continue monitor creatinine closely. Further recommendations to follow. Objective - Vital Signs Vital signs: Vital Signs Temp 96.9 F L 11/07/21 08:20 Pulse 60 11/07/21 09:38 Resp 14 11/07/21 08:20 BP 125/62 11/07/21 08:20 Pulse Ox 94 L 11/07/21 09:24 Intake & Output 11/06/21 11/07/21 11/07/21 18:59 06:59 18:59 Intake Total 120 120 Output Total 250 400 Balance -130 -280 Weight 113 kg Intake: IV 120 120 0.9 120 120 Output: Urine 250 400 Uretheral (Ramos) 400 Other: Voiding Method Indwelling Catheter Indwelling Catheter Indwelling Catheter # Bowel Movements 1 - Labs CBC & Chem 7: 11/07/21 07:07 11/07/21 07:07 Labs: Abnormal Lab Results - Last 24 Hours (Table) 11/06/21 11/06/21 11/07/21 Range/Units 11:23 11:23 07:07 RBC 3.58 L (3.80-5.40) m/uL MCV 105.6 H 105.5 H (80.0-100.0) fL MCHC 30.7 L 30.1 L (31.0-37.0) g/dL Plt Count 125 L 106 L (150-450) k/uL Lymphocytes # 0.7 L (1.0-4.8) k/uL Potassium (3.5-5.1) mmol/L Chloride 95 L (96-109) mmol/L Carbon Dioxide 38.6 H (20.0-27.5) mmol/L Est GFR (CKD-EPI)NonAf 58.3 L (60.0-200.0) Glucose (74-99) mg/dL Urine Appearance (Clear) Urine Protein (Negative) Urine Ketones (Negative) Urine Blood (Negative) Ur Leukocyte Esterase (Negative) Urine RBC (0-5) /hpf Urine WBC (0-5) /hpf Urine WBC Clumps (None) /hpf 11/07/21 11/07/21 Range/Units 07:07 08:00 RBC (3.80-5.40) m/uL MCV (80.0-100.0) fL MCHC (31.0-37.0) g/dL Plt Count (150-450) k/uL Lymphocytes # (1.0-4.8) k/uL Potassium 3.3 L (3.5-5.1) mmol/L Chloride 93 L (96-109) mmol/L Carbon Dioxide 41 H* (20.0-27.5) mmol/L Est GFR (CKD-EPI)NonAf (60.0-200.0) Glucose 70 L (74-99) mg/dL Urine Appearance Cloudy H (Clear) Urine Protein Trace H (Negative) Urine Ketones Trace H (Negative) Urine Blood Moderate H (Negative) Ur Leukocyte Esterase Large H (Negative) Urine RBC >182 H (0-5) /hpf Urine WBC 73 H (0-5) /hpf Urine WBC Clumps Few H (None) /hpf
--- NOTE | 2021-11-07 13:29 | P.PN ---
Subjective Progress Note Date: 11/07/21 CHIEF COMPLAINT: Abdominal ileus HISTORY OF PRESENT ILLNESS: Patient is sitting up at bedside chair. Patient did have flatus and didn't have bowel movement yesterday. She denies any abdominal pain. She reports decrease in her abdominal distention. Denies any nausea vomiting. Afebrile. PHYSICAL EXAM: VITAL SIGNS: Reviewed. GENERAL: Well-developed in no acute distress. HEENT: No sclera icterus. Extraocular movements grossly intact. Moist buccal mucosa. Head is atraumatic, normocephalic. ABDOMEN: Abdomen is distended but decreased from yesterday. Nontender. NEUROLOGIC: Alert and oriented. Cranial nerves II through XII grossly intact. ASSESSMENT: 1. Colonic ileus 2. Hypokalemia 3. Acute CHF exacerbation followed by cardiology PLAN: -Start regular diet -Continue supportive care -Potassium is being replaced -Continue stool softeners and Dulcolax suppository -Family and patient have declined endoscopy Physician Blending Tank Tender note has been reviewed by physician. Signing provider agrees with the documented findings, assessment, and plan of care. I have personally seen and examined the patient, reviewed the SERVICE PARTS COORDINATOR /PAs history, exam and MDM and agree with the assessment and plan as written. Based on total visit time, I have performed more than 50% of the visit. As above: patient had a small amount of flatus today. No bowel movement. Tolerating diet thus far. Apparently she had been nothing by mouth yesterday. Continue diet as tolerated for now. Continue daily Dulcolax suppositories. Increase ambulation. Objective - Vital Signs Vital signs: Vital Signs Temp 97.7 F 11/07/21 11:32 Pulse 57 L 11/07/21 11:32 Resp 16 11/07/21 11:32 BP 105/56 11/07/21 11:32 Pulse Ox 92 L 11/07/21 11:32 Intake & Output 11/06/21 11/07/21 11/07/21 18:59 06:59 18:59 Intake Total 120 120 Output Total 250 400 Balance -130 -280 Weight 113 kg Intake: IV 120 120 0.9 120 120 Output: Urine 250 400 Uretheral (Ramos) 400 Other: Voiding Method Indwelling Catheter Indwelling Catheter Indwelling Catheter # Bowel Movements 1 - Labs CBC & Chem 7: 11/07/21 07:07 11/07/21 07:07 Labs: Abnormal Lab Results - Last 24 Hours (Table) 11/06/21 11/07/21 11/07/21 Range/Units 11:23 07:07 07:07 RBC 3.58 L (3.80-5.40) m/uL MCV 105.5 H (80.0-100.0) fL MCHC 30.1 L (31.0-37.0) g/dL Plt Count 106 L (150-450) k/uL Lymphocytes # 0.7 L (1.0-4.8) k/uL Potassium 3.3 L (3.5-5.1) mmol/L Chloride 95 L 93 L (96-109) mmol/L Carbon Dioxide 38.6 H 41 H* (20.0-27.5) mmol/L Est GFR (CKD-EPI)NonAf 58.3 L (60.0-200.0) Glucose 70 L (74-99) mg/dL Urine Appearance (Clear) Urine Protein (Negative) Urine Ketones (Negative) Urine Blood (Negative) Ur Leukocyte Esterase (Negative) Urine RBC (0-5) /hpf Urine WBC (0-5) /hpf Urine WBC Clumps (None) /hpf 11/07/21 Range/Units 08:00 RBC (3.80-5.40) m/uL MCV (80.0-100.0) fL MCHC (31.0-37.0) g/dL Plt Count (150-450) k/uL Lymphocytes # (1.0-4.8) k/uL Potassium (3.5-5.1) mmol/L Chloride (96-109) mmol/L Carbon Dioxide (20.0-27.5) mmol/L Est GFR (CKD-EPI)NonAf (60.0-200.0) Glucose (74-99) mg/dL Urine Appearance Cloudy H (Clear) Urine Protein Trace H (Negative) Urine Ketones Trace H (Negative) Urine Blood Moderate H (Negative) Ur Leukocyte Esterase Large H (Negative) Urine RBC >182 H (0-5) /hpf Urine WBC 73 H (0-5) /hpf Urine WBC Clumps Few H (None) /hpf
--- NOTE | 2021-11-07 15:54 | P.PN ---
Subjective Progress Note Date: 11/07/21 This is a pleasant 86 years old female with past medical history of Atrial Fib rillation, on Eliquis, heart Failure, CVA/TIA, Hypertension, Pneumonia, Sleep Apnea/CPAP/BIPAP, chronic back pain, ovarian cancer, C-DIFF infection , Depression Presents because of increased confusion, shortness of breath, weakness and inability to ambulate Patient was on BiPAP in bed comfortable, information obtained with the help of the daughter Jodi at bedside As per daughter patient is on 3 L/m of oxygen at home and she is on BiPAP at [facility] since July when she was sick. Her bolt sorter is Dr. Bearden. 2 days ago patient was tired but, however yesterday she become really sick, it was so bad day for her as per daughter, she was confused, sleeping a lot, could not take her medication, she could not stand up. At baseline she walks about 15-21 feet. Then daughter noticed that she was becoming more hypoxic with oxygen dropped to 59% while on 3 L, she bumped up her oxygen to 4.5 L per minute and saturation improved to 83% as per daughter. So she called EMS for her. Patient is awake and alert, she notes she is in the current hospital in [place], she thought its 05/30/2022. And she is oriented to person as well. She denies any chest pain or dyspnea. She has her insight into her nose. She denies headache or weakness or numbness. No vomiting or diarrhea actually she is constipat she denies urinary symptoms but Doppler reports decreased urine output, She never smoked, she does not drink alcohol. Patient is hemodynamically stable, she is slightly tachypneic and 20 and hypoxic at 91% oxygen saturation on 2 L/m CBC is unremarkable, INR 1.1, arterial blood gas showing slightly low pH 7.34, high pCO2 73 and low pO2 at 60 Sodium 137, carbon dioxide elevated 39, creatinine high at 1.13, compared to baseline of 0.7-0.8 Liver enzymes not elevated, troponin negative and proBNP is low 587. Urine analysis is normal Coronavirus not detected Chest x-ray: Congestive heart failure with patchy atelectasis. Pulmonary navin estion improved compared to last exam CTA from 07/2021: No pulmonary embolism. Bilateral pulmonary patchy infiltrates and atelectasis. 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 Cardiology and pulmonary team consulted. 11/01/2021 Patient is more sleepy today although she awakes to verbal and tactile stimuli and answers some questions but she looks also slow. Most likely this could be related to her hypothyroidism. Her levothyroxine was started today at 37.5 g and increased for tomorrow at 50 g daily. But because she is also on Eliquis we will order CT of the brain to rule out intracranial bleed or acute pathology. She is hemodynamically stable, her oxygen is status improved and currently she is on 4 L/m which is close to her home dose of 3 L/m. Echocardiogram showed ejection fraction of 55-60% with moderate aortic stenosis. She remains on Eliquis 5 mg, IV Lasix 40 mg twice daily. Also we put the patient on a fluid restriction 1500 mL per day. Continue with Symbicort and albuterol when necessary 11/02/2021 Patient is more awake and interactive today. She has better appetite. She denies any specific symptoms. No dyspnea or tachypnea while sitting in bed most of the time. Minimal cough and no chest pain, no GI or urinary symptoms. Chest x-ray showing atelectasis and cardiomegaly. Labs showing mild pancytopenia with WBC 4.1, hemoglobin 10.3 and platelet count 123. She remains on a fluid restriction. She remains on IV Lasix 40 mg twice daily. Extremities on levothyroxine 50 units. We will check thyroid function test and B12 and folate. 11/03/2021 patient mentation is improving however she still lethargic and very weak Patient severely low hypothyroidism case. Levothyroid replacement therapy is a started. A shunt on 75 g daily with recommendation to check thyroid function tests in one month. Also vitamin B12 is deficient less than 150 we going to replace it with IM dose in 3 days and then continue with oral. Since she is on a blood thinner she'll be at risk of hematoma however it is thought that benefit more than risk. She remains on IV Lasix 40 mg 3 times a day. Potassium 2.9 been placed on monitored. Magnesium stable at 2.2. Patient will benefit from ECF for rehab upon discharge 11/04/2021 Patient is seen and evaluated in follow-up this morning having some abdominal discomfort and per nursing staff bowel sounds are sluggish and patient had an episode of liquid stool last night and denies passing gas. Patient underwent abdominal and chest x-ray this morning which showed dilatation of large and small bowel loops an x-ray notes to correlate for possible bowel obstruction versus colonic ileus and have consulted general surgery and an order for a CT abdomen and pelvis is ordered and pending. We'll make the patient nothing by mouth and discuss further with surgery once CT abdomen is done. Pulmonary also following. 11/05/2021 Patient is seen and evaluated this morning and reports to some abdominal improvement although continues with distention and feeling bloated. Per nursing staff patient is having large amounts of gas and up to the commode multiple times with assistance although no bowel movement today. General surgery f ollowing for possible ileus. Patient with continued shortness of breath and pulmonary following and will order chest x-ray. Cardiology also following 11/06/2021 Patient is seen today in follow-up continues to have some abdominal bloating although feels it is slightly improved. Patient reports to having a bowel movement yesterday and reports to continued gas. Patient with indwelling Ramos catheter for retention and patient was recently resumed on oral anticoagulant and started having some hematuria noted in the Ramos. Will hold Eliquis and monitor closely for any further signs of active bleeding. Hemoglobin is stable at 12.9. Patient denies any painful burning or pressure or bladder discomfort. Patient is afebrile. Patient denies any worsening shortness of breath or chest pain. 11/07/2021 Patient is seen and evaluated in follow-up today currently sitting up in the chair reports to her abdominal distention feeling somewhat improved. Patient is passing gas and had a bowel movement yesterday but none today. Patient denies any abdominal pain and is asking for food. Patient has been maintained on ice chips and tolerating with no nausea or vomiting noted. Patient was noted hematuria in the indwelling Ramos catheter and was recently resumed on eliquis and the increasing hematuria was noted. Anticoagulant on hold and there is some improvement noted in the Ramos catheter. Urinalysis with culture was ordered and pending. Patient is afebrile denies any shortness of breath or chest pain. Cardiology also following and patient is continued on IV Lasix. Hemoglobin is s table today at 11.4. Potassium mildly low at 3.3 and will replace per protocol. Review of systems: Constitutional: No reports of fatigue, fever, or chills Cardiovascular: No reports of chest pain or palpitations Respiratory: No reports of worsening shortness of breath or cough GI: No reports of nausea, vomiting, or diarrhea, reports abdominal pain and bloating has improved, reports passing gas, reports no bowel movement today : No reports of dysuria or retention Neurovascular: reports of generalized weakness All medications have been reviewed Active Medications Acetazolamide (Acetazolamide 250 Mg Tab) 250 mg PO DAILY [facility] Last Admin: 11/07/21 08:03 Dose: 250 mg Documented by: Albuterol Sulfate (Albuterol Nebulized 2.5 Mg/3 Ml) 2.5 mg INHALATION RT-QID PRN PRN Reason: Shortness Of Breath Last Admin: 11/07/21 09:21 Dose: 2.5 mg Documented by: Atorvastatin Calcium (Atorvastatin 40 Mg Tab) 40 mg PO HS@2100 [facility] Last Admin: 11/06/21 21:25 Dose: 40 mg Documented by: Bisacodyl (Bisacodyl 10 Mg Supp) 10 mg RECTAL DAILY [facility] Last Admin: 11/07/21 08:03 Dose: 10 mg Documented by: Budesonide/Formoterol Fumarate (Symbicort 160-4.5 Mcg Inhaler) 2 puff INHALATION RT-BID@0900,2100 [facility] Last Admin: 11/07/21 09:21 Dose: 2 puff Documented by: Clobetasol Propionate (Clobetasol Prop 0.05% Cr 15gm) 1 applic TOPICAL Q12H [facility] Last Admin: 11/07/21 08:04 Dose: 1 applic Documented by: Cyanocobalamin (Cyanocobalamin 500 Mcg Tab) 1,000 mcg PO DAILY [facility] Last Admin: 11/07/21 08:03 Dose: 1,000 mcg Documented by: Docusate Sodium (Docusate 100 Mg Cap) 100 mg PO DAILY PRN PRN Reason: Constipation Last Admin: 11/02/21 21:49 Dose: 100 mg Documented by: Duloxetine HCl (Duloxetine Hcl 20 Mg Capsule.Dr) 20 mg PO HS@2100 [facility] Last Admin: 11/06/21 21:24 Dose: 20 mg Documented by: Famotidine (Famotidine 20 Mg Tab) 20 mg PO DAILY [facility] Last Admin: 11/07/21 08:04 Dose: 20 mg Documented by: Fluticasone Propionate (Fluticasone 50mcg/[place] Nasal 16gm) 1 spray EA NOSTRIL DAILY PRN PRN Reason: Allergy Symptoms Furosemide (Furosemide 10 Mg/Ml 4 Ml Vial) 40 mg IV DAILY [facility] Last Admin: 11/07/21 08:03 Dose: 40 mg Documented by: Levothyroxine Sodium (Levothyroxine 75 Mcg Tab) 75 mcg PO DAILY@0630 [facility] Last Admin: 11/07/21 05:55 Dose: 75 mcg Documented by: Magnesium Hydroxide (Magnesium Hydroxide 2,400 Mg/10 Ml Cup) 2,400 mg PO DAILY [facility] Last Admin: 11/07/21 08:03 Dose: 2,400 mg Documented by: Metoprolol Succinate (Metoprolol Succinate (Er) 25 Mg Tab.Er.24h) 25 mg PO DAILY@0900 [facility] Last Admin: 11/07/21 08:04 Dose: 25 mg Documented by: Miscellaneous Information (Potassium Replacement Protocol 1 Each Misc) 1 each MISCELLANE DAILY PRN; Protocol PRN Reason: Per Protocol Pregabalin (Pregabalin 75 Mg Cap) 150 mg PO TID@0600,1400,2200 [facility] Last Admin: 11/07/21 14:33 Dose: 150 mg Documented by: Ropinirole HCl (Ropinirole Hcl 1 Mg Tab) 3 mg PO BID@0900,2100 [facility] Last Admin: 11/07/21 08:04 Dose: 3 mg Documented by: Physical exam: GENERAL: The patient is alert and oriented x3. Well developed, well nourished. Morbidly obese. generally weak HEENT: Pupils are round and equally reacting to light. EOMI. No scleral icterus. No conjunctival pallor. Normocephalic, atraumatic. No pharyngeal erythema. No thyromegaly. CARDIOVASCULAR: S1 and S2 muffled PULMONARY: diminished breath sounds with some scattered rhonchi noted ABDOMEN: Soft, obese, nontender, less distended, bowel sounds. No palpable org anomegaly. MUSCULOSKELETAL: No joint swelling or deformity. EXTREMITIES: No cyanosis, clubbing. Bilateral patellar like edema NEUROLOGICAL: Gross neurological examination did not reveal any focal deficits. diffusely weak SKIN: No rashes. no petechiae. Assessment: Acute hypoxic hypercapnic respiratory failure Acute Hypothyroidism abdominal pain and distention, possible ileus Hematuria Severe vitamin B12 deficiency Pancytopenia secondary to ineffective erythropoiesis from vitamin B12 deficiency Acute on chronic Diastolic CHF, EF 55-60% Acute on chronic hypoxic respiratory failure Acute COPD exacerbation possible obesity hypoventilation syndrome Mild acute kidney injury Paroxysmal atrial fibrillation History of CVA/TIA Hypertension History of sleep apnea Chronic back pain History of ovarian cancer History of depression Morbid obesity with BMI of 48.5 DVT prophylaxis GI Prophylaxis: Pepcid NO code Plan: This is a pleasant 86 years old female who presents with acute dyspnea and bilateral pulmonary infiltrate. Patient continues on IV Lasix along with inhaled steroids and bronchodilators and oxygen. Continue with BiPAP as needed and at night. We'll transition to oral Lasix tomorrow Cardiology and pulmonary following, general surgery following for possible ileus, recommending close monitoring and discussed endoscopic intervention and patient refusing at this time. Family at the bedside Patient noted to have some hematuria noted in the Ramos and was recently resumed on Eliquis and subsequently some blood was noted in the urine. Urine with cult ure ordered and pending and will continue to hold anticoagulants for now and monitor closely. Hemoglobin is stable at this time and will repeat labs. PT/OT: Recommended subacute rehab, social work following, patient will return to [facility] once stable, will need insurance auth for [facility] Continue current bowel regimen and monitoring of intake and output and diet being resumed and will monitor for tolerance Prognosis is guarded The impression and plan of care has been dictated by Lorna Garg, Nurse Practitioner as directed. Dr. Vega MD I have performed a history and examination and MDM of this patient, discussed the same with the dictator, and agree with the dictator's assessment and plan as written ,documented as a scribe. Based on total visit time, I have performed more than 50% of the visit. Objective - Vital Signs Vital signs: Vital Signs Temp 96.9 F L 11/07/21 08:20 Pulse 58 L 11/07/21 08:20 Resp 14 11/07/21 08:20 BP 125/62 11/07/21 08:20 Pulse Ox 91 L 11/07/21 05:00 Intake & Output 11/06/21 11/07/21 11/07/21 18:59 06:59 18:59 Intake Total 120 120 Output Total 250 400 Balance -130 -280 Weight 113 kg Intake: IV 120 120 0.9 120 120 Output: Urine 250 400 Uretheral (Ramos) 400 Other: Voiding Method Indwelling Catheter Indwelling Catheter Indwelling Catheter # Bowel Movements 1 - Labs CBC & Chem 7: 11/07/21 07:07 11/07/21 07:07 Labs: Abnormal Lab Results - Last 24 Hours (Table) 11/06/21 11/06/21 11/07/21 Range/Units 11:23 11:23 07:07 RBC 3.58 L (3.80-5.40) m/uL MCV 105.6 H 105.5 H (80.0-100.0) fL MCHC 30.7 L 30.1 L (31.0-37.0) g/dL Plt Count 125 L 106 L (150-450) k/uL Lymphocytes # 0.7 L (1.0-4.8) k/uL Potassium (3.5-5.1) mmol/L Chloride 95 L (96-109) mmol/L Carbon Dioxide 38.6 H (20.0-27.5) mmol/L Est GFR (CKD-EPI)NonAf 58.3 L (60.0-200.0) Glucose (74-99) mg/dL 11/07/21 Range/Units 07:07 RBC (3.80-5.40) m/uL MCV (80.0-100.0) fL MCHC (31.0-37.0) g/dL Plt Count (150-450) k/uL Lymphocytes # (1.0-4.8) k/uL Potassium 3.3 L (3.5-5.1) mmol/L Chloride 93 L (96-109) mmol/L Carbon Dioxide 41 H* (20.0-27.5) mmol/L Est GFR (CKD-EPI)NonAf (60.0-200.0) Glucose 70 L (74-99) mg/dL
[2021-11-07] MEDS: DULoxetine HCL 20 MG CAPSULE.DR PO SCH (20:49)
[2021-11-07] MEDS: ATORVASTATIN 40 MG TAB PO SCH (20:49)
[2021-11-08] MEDS: PREGABALIN 75 MG CAP PO SCH ×3 (06:05→23:19)
[2021-11-08] MEDS: LEVOTHYROXINE 75 MCG TAB PO SCH (06:06)
[2021-11-08] MEDS: SYMBICORT 160-4.5 MCG INHALER INHALATION SCH ×2 (08:55→20:03)
[2021-11-08] MEDS: ALBUTEROL NEBULIZED 2.5 MG/3 ML INHALATION PRN ×2 (08:55→11:39)
--- NOTE | 2021-11-08 09:23 | P.PN ---
Subjective Progress Note Date: 11/08/21 PROGRESS NOTE The patient is an 86-year-old female who presented with symptoms of progressive dyspnea. She had ileus. She's feeling better able to tolerate oral intake. She continues to have dyspnea but no chest discomfort. She denies any dizziness or palpitations. She continues to be on Diamox, Lipitor 40 mg daily, Cymbalta, Lasix 40 mg IV every 12 Toprol-XL 25 mg daily, Lyrica PHYSICAL EXAMINATION: Blood pressure 102/50 heart rate 80 LUNGS: Decreased breath sounds at the bases, no wheezes HEART: [Regular rate and rhythm, S1, S2. No S3. systolic murmur at the left sternal border, 2/6] ABDOMEN: [Soft, nontender, no organomegaly] EXTREMETIES: [1+ edema] LAB: Potassium 3.3 yesterday, lab data from today pending IMPRESSION: 1. Congestive heart failure is preserved systolic function, stable 2. Paroxysmal atrial fibrillation 3. Ileus 4. COPD 5. Moderate aortic stenosis 6. History of hypertension PLAN: 1. Change to oral diuretics 2. Follow renal functions 3. Increase physical activity 4. Depending on her progress further evaluation of the aortic valve as an outpatient Objective - Vital Signs Vital signs: Vital Signs Temp 97.0 F L 11/08/21 05:00 Pulse 82 11/08/21 09:11 Resp 20 11/08/21 05:00 BP 102/57 11/08/21 05:00 Pulse Ox 91 L 11/08/21 08:56 Intake & Output 11/07/21 11/08/21 11/08/21 18:59 06:59 18:59 Intake Total 380 Output Total 1000 300 Balance -1000 80 Weight 110 kg Intake: IV 10 Invasive Line 4 10 Oral 370 Output: Urine 1000 300 Other: Voiding Method Indwelling Catheter Indwelling Catheter - Labs CBC & Chem 7: 11/07/21 07:07 11/07/21 07:07 Labs: Abnormal Lab Results - Last 24 Hours (Table) 11/07/21 Range/Units 08:00 Urine Appearance Cloudy H (Clear) Urine Protein Trace H (Negative) Urine Ketones Trace H (Negative) Urine Blood Moderate H (Negative) Ur Leukocyte Esterase Large H (Negative) Urine RBC >182 H (0-5) /hpf Urine WBC 73 H (0-5) /hpf Urine WBC Clumps Few H (None) /hpf Microbiology - Last 24 Hours (Table) 11/07/21 08:00 Urine Culture - Preliminary Urine,Clean Catch
[2021-11-08] MEDS: MAGNESIUM HYDROXIDE 2,400 MG/10 ML CUP PO SCH (09:31)
[2021-11-08] MEDS: CYANOCOBALAMIN 500 MCG TAB PO SCH (09:32)
[2021-11-08] MEDS: FAMOTIDINE 20 MG TAB PO SCH (09:32)
[2021-11-08] MEDS: bisacodyL 10 MG SUPP RECTAL SCH (09:32)
[2021-11-08] MEDS: FUROSEMIDE 10 MG/ML 4 ML VIAL IV SCH (09:32)
[2021-11-08] MEDS: METOPROLOL SUCCINATE (ER) 25 MG TAB.ER.24H PO SCH (09:32)
[2021-11-08] MEDS: CLOBETASOL PROP 0.05% CR 15GM TOPICAL SCH ×2 (09:34→23:19)
[2021-11-08] MEDS: FUROSEMIDE 40 MG TAB PO SCH ×2 (09:43→18:00)
[2021-11-08 09:51] LABS: Basophils % (A) 0 %; Eosinophils # (A) 0.2 k/uL (0-0.7); Eosinophils % (A) 3 %; HCT 38.6 % (34.0-46.0); HGB 11.7 gm/dL (11.4-16.0); Hypochromasia Marked; Lymphocytes # (A) 1.4 k/uL (1.0-4.8); Lymphocytes % (A) 23 %; MCH 32.2 pg (25.0-35.0); MCHC 30.4 g/dL (31.0-37.0); Macrocytosis Moderate; Mean Platelet Volume 9.4; Monocytes # (A) 0.3 k/uL (0-1.0); Monocytes % (A) 4 %; Neutrophils # (A) 4.1 k/uL (1.3-7.7); Neutrophils % (A) 69 %; Platelet Count 120 k/uL (150-450); RBC 3.64 m/uL (3.80-5.40); RDW 15.2 % (11.5-15.5)
[2021-11-08 10:02] LABS: African American GFR (CKD) 59 (>60 ml/min/1.73 sqM); Anion Gap 7 mmol/L; Blood Urea Nitrogen 16 mg/dL (7-17); Calcium 9.4 mg/dL (8.4-10.2); Carbon Dioxide 38 mmol/L (22-30); Chloride 96 mmol/L (98-107); Glucose 99 mg/dL (74-99); Non-African American GFR(CKD) 51 (>60 ml/min/1.73 sqM); Sodium 141 mmol/L (137-145)
[2021-11-08] MEDS: acetaZOLAMIDE 250 MG TAB PO SCH (10:30)
--- NOTE | 2021-11-08 16:42 | P.PN ---
Subjective Progress Note Date: 11/08/21 Principal diagnosis: Colonic ileus Patient doing better today. She has had multiple loose stools today. No abdominal pain. Tolerating diet. Objective - Vital Signs Vital signs: Vital Signs Temp 98.8 F 11/08/21 12:40 Pulse 61 11/08/21 12:40 Resp 18 11/08/21 12:40 BP 103/67 11/08/21 12:40 Pulse Ox 93 L 11/08/21 12:40 Intake & Output 11/07/21 11/08/21 11/08/21 18:59 06:59 18:59 Intake Total 380 Output Total 1000 300 Balance -1000 80 Weight 110 kg Intake: IV 10 Invasive Line 4 10 Oral 370 Output: Urine 1000 300 Other: Voiding Method Indwelling Catheter Indwelling Catheter Indwelling Catheter - Exam Abdomen: Soft, mild distention, nontender - Labs CBC & Chem 7: 11/08/21 09:38 11/08/21 09:38 Labs: Abnormal Lab Results - Last 24 Hours (Table) 11/08/21 11/08/21 Range/Units 09:38 09:38 RBC 3.64 L (3.80-5.40) m/uL MCV 106.0 H (80.0-100.0) fL MCHC 30.4 L (31.0-37.0) g/dL Plt Count 120 L (150-450) k/uL Chloride 96 L (98-107) mmol/L Carbon Dioxide 38 H (22-30) mmol/L Microbiology - Last 24 Hours (Table) 11/07/21 08:00 Urine Culture - Preliminary Urine,Clean Catch Gram Neg Bacilli Assessment and Plan (1) Adynamic ileus Narrative/Plan: Patient doing better today. Continue diet as tolerated. Continue stool softeners and Dulcolax. Increase activity as tolerated. Current Visit: Yes Status: Acute Code(s): K56.0 - PARALYTIC ILEUS SNOMED Code(s): 17900351
[2021-11-08] MEDS: DULoxetine HCL 20 MG CAPSULE.DR PO SCH (23:19)
[2021-11-08] MEDS: ATORVASTATIN 40 MG TAB PO SCH (23:19)
[2021-11-09 04:26] LABS: African American GFR (CKD) 68 (>60 ml/min/1.73 sqM); Anion Gap 4 mmol/L; Blood Urea Nitrogen 16 mg/dL (7-17); Carbon Dioxide 38 mmol/L (22-30); Chloride 96 mmol/L (98-107); Glucose 98 mg/dL (74-99); Non-African American GFR(CKD) 59 (>60 ml/min/1.73 sqM); Potassium 3.2 mmol/L (3.5-5.1); Sodium 138 mmol/L (137-145)
[2021-11-09] MEDS: PREGABALIN 75 MG CAP PO SCH ×3 (06:23→22:32)
[2021-11-09] MEDS: LEVOTHYROXINE 75 MCG TAB PO SCH (06:23)
[2021-11-09] MEDS: CLOBETASOL PROP 0.05% CR 15GM TOPICAL SCH ×2 (08:23→22:32)
[2021-11-09] MEDS: acetaZOLAMIDE 250 MG TAB PO SCH (08:23)
[2021-11-09] MEDS: MAGNESIUM HYDROXIDE 2,400 MG/10 ML CUP PO SCH (08:23)
[2021-11-09] MEDS: METOPROLOL SUCCINATE (ER) 25 MG TAB.ER.24H PO SCH (08:23)
[2021-11-09] MEDS: FUROSEMIDE 40 MG TAB PO SCH ×2 (08:23→15:41)
[2021-11-09] MEDS: CYANOCOBALAMIN 500 MCG TAB PO SCH (08:23)
[2021-11-09] MEDS: FAMOTIDINE 20 MG TAB PO SCH (08:23)
[2021-11-09] MEDS: bisacodyL 10 MG SUPP RECTAL SCH (08:25)
[2021-11-09] MEDS: ALBUTEROL NEBULIZED 2.5 MG/3 ML INHALATION PRN ×3 (08:37→16:02)
[2021-11-09] MEDS: SYMBICORT 160-4.5 MCG INHALER INHALATION SCH ×2 (08:37→20:10)
--- NOTE | 2021-11-09 10:06 | P.PN ---
Subjective Progress Note Date: 11/09/21 Principal diagnosis: Colonic ileus Patient doing well today. Had multiple bowel movements yesterday. Patient somewhat confused. Denies pain. Objective - Vital Signs Vital signs: Vital Signs Temp 98.3 F 11/09/21 07:46 Pulse 68 11/09/21 08:50 Resp 16 11/09/21 07:46 BP 112/70 11/09/21 07:46 Pulse Ox 92 L 11/09/21 08:39 Intake & Output 11/08/21 11/09/21 11/09/21 18:59 06:59 18:59 Intake Total 120 60 430 Output Total 300 Balance -180 60 430 Weight 111 kg Intake: IV 120 0.9 120 Oral 60 430 Output: Urine 300 Other: Voiding Method Indwelling Catheter Indwelling Catheter Indwelling Catheter # Bowel Movements 3 3 - Exam Abdomen: Soft, mild distention, nontender - Labs CBC & Chem 7: 11/08/21 09:38 11/09/21 03:27 Labs: Abnormal Lab Results - Last 24 Hours (Table) 11/09/21 Range/Units 03:27 Potassium 3.2 L (3.5-5.1) mmol/L Chloride 96 L (98-107) mmol/L Carbon Dioxide 38 H (22-30) mmol/L Microbiology - Last 24 Hours (Table) 11/07/21 08:00 Urine Culture - Preliminary Urine,Clean Catch Gram Neg Bacilli Assessment and Plan (1) Adynamic ileus Narrative/Plan: Continue encouraging oral intake. Monitor for bowel function today. Ambulate. Current Visit: Yes Status: Acute Code(s): K56.0 - PARALYTIC ILEUS SNOMED Code(s): 68268678
[2021-11-09] MEDS: POTASSIUM CHLORIDE ER 20 MEQ TAB.ER PO SCH ×4 (14:24→23:43)
--- NOTE | 2021-11-09 22:05 | P.PN ---
Subjective Progress Note Date: 11/08/21 86 years old female with past medical history of Atrial Fibrillation, on Eliquis, heart Failure, CVA/TIA, Hypertension, Pneumonia, Sleep Apnea/CPAP/BIPAP, chronic back pain, ovarian cancer, C-DIFF infection , Depression Presents because of increased confusion, shortness of breath, weakness and inability to ambulate Patient was on BiPAP in bed comfortable, information obtained with the help of the daughter Jodi at bedside As per daughter patient is on 3 L/m of oxygen at home and she is on BiPAP at night since July when she was sick. Her traffic reporter is Dr. Bearden. 2 days ago patient was tired but, however yesterday she become really sick, it was so bad day for her as per daughter, she was confused, sleeping a lot, could not take her medication, she could not stand up. At baseline she walks about 15-21 feet. Then daughter noticed that she was becoming more hypoxic with oxygen dropped to 59% while on 3 L, she bumped up her oxygen to 4.5 L per minute and saturation improved to 83% as per daughter. So she called EMS for her. Patient is awake and alert, she notes she is in the current hospital in [place], she thought its 05/30/2022. And she is oriented to person as well. She denies any chest pain or dyspnea. She has her insight into her nose. She denies headache or weakness or numbness. No vomiting or diarrhea actually she is constipat she denies urinary symptoms but Doppler reports decreased urine output, She never smoked, she does not drink alcohol. Objective - Vital Signs Vital signs: Vital Signs Temp 97.0 F L 11/08/21 05:00 Pulse 79 11/08/21 11:54 Resp 20 11/08/21 05:00 BP 102/57 11/08/21 05:00 Pulse Ox 91 L 11/08/21 08:56 Intake & Output 11/07/21 11/08/21 11/08/21 18:59 06:59 18:59 Intake Total 380 Output Total 1000 300 Balance -1000 80 Weight 110 kg Intake: IV 10 Invasive Line 4 10 Oral 370 Output: Urine 1000 300 Other: Voiding Method Indwelling Catheter Indwelling Catheter Indwelling Catheter - Exam GENERAL: The patient is alert and oriented x3. Well developed, well nourished. Morbidly obese. generally weak HEENT: Pupils are round and equally reacting to light. EOMI. No scleral icterus. No conjunctival pallor. Normocephalic, atraumatic. No pharyngeal erythema. No thyromegaly. CARDIOVASCULAR: S1 and S2 muffled PULMONARY: diminished breath sounds with some scattered rhonchi noted ABDOMEN: Soft, obese, nontender, less distended, bowel sounds. No palpable organomegaly. MUSCULOSKELETAL: No joint swelling or deformity. EXTREMITIES: No cyanosis, clubbing. Bilateral patellar like edema NEUROLOGICAL: Gross neurological examination did not reveal any focal deficits. diffusely weak - Labs CBC & Chem 7: 11/08/21 09:38 11/09/21 17:58 Labs: Abnormal Lab Results - Last 24 Hours (Table) 11/08/21 11/08/21 Range/Units 09:38 09:38 RBC 3.64 L (3.80-5.40) m/uL MCV 106.0 H (80.0-100.0) fL MCHC 30.4 L (31.0-37.0) g/dL Plt Count 120 L (150-450) k/uL Chloride 96 L (98-107) mmol/L Carbon Dioxide 38 H (22-30) mmol/L Microbiology - Last 24 Hours (Table) 11/07/21 08:00 Urine Culture - Preliminary Urine,Clean Catch Assessment and Plan Assessment: Acute hypoxic hypercapnic respiratory failure Acute Hypothyroidism abdominal pain and distention, possible ileus Hematuria Severe vitamin B12 deficiency Pancytopenia secondary to ineffective erythropoiesis from vitamin B12 deficiency Acute on chronic Diastolic CHF, EF 55-60% Acute on chronic hypoxic respiratory failure Acute COPD exacerbation possible obesity hypoventilation syndrome Mild acute kidney injury Paroxysmal atrial fibrillation History of CVA/TIA Hypertension History of sleep apnea Chronic back pain History of ovarian cancer History of depression Morbid obesity with BMI of 48.5 DVT prophylaxis GI Prophylaxis: Pepcid NO code Plan: This is a pleasant 86 years old female who presents with acute dyspnea and bilateral pulmonary infiltrate. Patient continues on IV Lasix along with inhaled steroids and bronchodilators and oxygen. Continue with BiPAP as needed and at night. We'll transition to oral Lasix tomorrow Cardiology and pulmonary following, general surgery following for possible ileus, recommending close monitoring and discussed endoscopic intervention and patient refusing at this time. Family at the bedside Patient noted to have some hematuria noted in the Ramos and was recently resumed on Eliquis and subsequently some blood was noted in the urine. Urine with culture ordered and pending and will continue to hold anticoagulants for now and monitor closely. Hemoglobin is stable at this time and will repeat labs. PT/OT: Recommended subacute rehab, social work following, patient will return to [facility] once stable, will need insurance auth for [facility] Continue current bowel regimen and monitoring of intake and output and diet being resumed and will monitor for tolerance Prognosis is guarded
--- NOTE | 2021-11-09 22:15 | P.PN ---
Subjective Progress Note Date: 11/09/21 Principal diagnosis: Colonic ileus Acute exacerbation CHF with preserved EF Acute on chronic hypercapnic respiratory failure/ Acute COPD exacerbation Acute Hypothyroidism Severe vitamin B12 deficiency 86 years old female with past medical history of Atrial Fibrillation, on Eliquis, heart Failure, CVA/TIA, Hypertension, Pneumonia, Sleep Apnea/CPAP/BIPAP, chronic back pain, ovarian cancer, C-DIFF infection , Depression Presents because of increased confusion, shortness of breath, weakness and inability to ambulate Patient was on BiPAP in bed comfortable, information obtained with the help of the daughter Jodi at bedside As per daughter patient is on 3 L/m of oxygen at home and she is on BiPAP at night since July when she was sick. Her program or project administrator is Dr. Bearden. 2 days ago patient was tired but, however yesterday she become really sick, it was so bad day for her as per daughter, she was confused, sleeping a lot, could not take her medication, she could not stand up. At baseline she walks about 15-21 feet. Then daughter noticed that she was becoming more hypoxic with oxygen dropped to 59% while on 3 L, she bumped up her oxygen to 4.5 L per minute and saturation improved to 83% as per daughter. So she called EMS for her. Patient is awake and alert, she notes she is in the current hospital in [place], she thought its 05/30/2022. And she is oriented to person as well. She denies any chest pain or dyspnea. She has her insight into her nose. She denies headache or weakness or numbness. No vomiting or diarrhea actually she is constipat she denies urinary symptoms but Doppler reports decreased urine output, She never smoked, she does not drink alcohol. 11/09/2021 Patient is seen and evaluated; nursing staff reporting multiple bowel movements yesterday; remains somewhat confused Vital signs are reviewed and reveal temperature of 98.3, pulse 68, respirations 16 and blood pressure of 112/70 Lab review reveals sodium 138, potassium 3.2, BUN/creatinine of 16/0.9 and blood glucose of 98 Surgery on board for abdominal ileus and recommending increase ambulation and encouraging oral intake Cardiology recommending to switch diuretics to oral; monitor renal function and electrolytes Patient to be discharged to skilled rehab once arrangements are made Objective - Vital Signs Vital signs: Vital Signs Temp 99 F 11/09/21 20:37 Pulse 61 11/09/21 20:37 Resp 18 11/09/21 20:37 BP 103/64 11/09/21 20:37 Pulse Ox 92 L 11/09/21 20:37 Intake & Output 11/09/21 11/09/21 11/10/21 06:59 18:59 06:59 Intake Total 60 1090 Output Total 500 Balance 60 590 Weight 111 kg Intake: Oral 60 1090 Output: Urine 500 Other: Voiding Method Indwelling Catheter Indwelling Catheter # Bowel Movements 3 - Exam GENERAL: The patient is alert and oriented x3. Well developed, well nourished. Morbidly obese. generally weak HEENT: Pupils are round and equally reacting to light. EOMI. No scleral icterus. No conjunctival pallor. Normocephalic, atraumatic. No pharyngeal erythema. No thyromegaly. CARDIOVASCULAR: S1 and S2 muffled PULMONARY: diminished breath sounds with some scattered rhonchi noted ABDOMEN: Soft, obese, nontender, less distended, bowel sounds. No palpable organomegaly. MUSCULOSKELETAL: No joint swelling or deformity. EXTREMITIES: No cyanosis, clubbing. Bilateral patellar like edema NEUROLOGICAL: Gross neurological examination did not reveal any focal deficits. diffusely weak - Labs CBC & Chem 7: 11/08/21 09:38 11/09/21 17:58 Labs: Abnormal Lab Results - Last 24 Hours (Table) 11/09/21 11/09/21 Range/Units 03:27 17:58 Potassium 3.2 L 3.2 L (3.5-5.1) mmol/L Chloride 96 L (98-107) mmol/L Carbon Dioxide 38 H (22-30) mmol/L Microbiology - Last 24 Hours (Table) 11/07/21 08:00 Urine Culture - Final Urine,Clean Catch Escherichia coli Assessment and Plan Assessment: Acute hypoxic hypercapnic respiratory failure Acute Hypothyroidism abdominal pain and distention, possible ileus Hematuria Severe vitamin B12 deficiency Pancytopenia secondary to ineffective erythropoiesis from vitamin B12 deficiency Acute on chronic Diastolic CHF, EF 55-60% Acute on chronic hypoxic respiratory failure Acute COPD exacerbation possible obesity hypoventilation syndrome Mild acute kidney injury Paroxysmal atrial fibrillation History of CVA/TIA Hypertension History of sleep apnea Chronic back pain History of ovarian cancer History of depression Morbid obesity with BMI of 48.5 DVT prophylaxis GI Prophylaxis: Pepcid NO code Plan: This is a pleasant 86 years old female who presents with acute dyspnea and bilateral pulmonary infiltrate. Patient continues on IV Lasix along with inhaled steroids and bronchodilators and oxygen. Continue with BiPAP as needed and at night. We'll transition to oral Lasix tomorrow Cardiology and pulmonary following, general surgery following for possible ileus, recommending close monitoring and discussed endoscopic intervention and patient refusing at this time. Family at the bedside Patient noted to have some hematuria noted in the Ramos and was recently resumed on Eliquis and subsequently some blood was noted in the urine. Urine with culture ordered and pending and will continue to hold anticoagulants for now and monitor closely. Hemoglobin is stable at this time and will repeat labs. PT/OT: Recommended subacute rehab, social work following, patient will return to [facility] once stable, will need insurance auth for [facility] Continue current bowel regimen and monitoring of intake and output and diet being resumed and will monitor for tolerance Prognosis is guarded
[2021-11-09] MEDS: DULoxetine HCL 20 MG CAPSULE.DR PO SCH (22:32)
[2021-11-09] MEDS: ATORVASTATIN 40 MG TAB PO SCH (22:32)
[2021-11-10] MEDS: PREGABALIN 75 MG CAP PO SCH ×3 (05:58→20:58)
[2021-11-10] MEDS: LEVOTHYROXINE 75 MCG TAB PO SCH (05:58)
[2021-11-10] MEDS: ALBUTEROL NEBULIZED 2.5 MG/3 ML INHALATION PRN ×2 (08:05→11:39)
[2021-11-10] MEDS: SYMBICORT 160-4.5 MCG INHALER INHALATION SCH ×2 (08:06→19:28)
--- NOTE | 2021-11-10 09:35 | P.PN ---
Subjective Progress Note Date: 11/10/21 Principal diagnosis: Colonic ileus Patient has no complaints today. Denies abdominal pain. Patient states she has had a bowel movement. Tolerating diet. Objective - Vital Signs Vital signs: Vital Signs Temp 97.5 F L 11/10/21 05:00 Pulse 74 11/10/21 08:20 Resp 18 11/09/21 20:37 BP 121/72 11/10/21 05:00 Pulse Ox 98 11/10/21 08:08 Intake & Output 11/09/21 11/10/21 11/10/21 18:59 06:59 18:59 Intake Total 1090 240 Output Total 500 Balance 590 240 Weight 111.5 kg Intake: Oral 1090 240 Output: Urine 500 Other: Voiding Method Indwelling Catheter Indwelling Catheter - Exam Abdomen: Soft, minimal distention, nontender - Labs CBC & Chem 7: 11/08/21 09:38 11/09/21 17:58 Labs: Abnormal Lab Results - Last 24 Hours (Table) 11/09/21 Range/Units 17:58 Potassium 3.2 L (3.5-5.1) mmol/L Microbiology - Last 24 Hours (Table) 11/07/21 08:00 Urine Culture - Final Urine,Clean Catch Escherichia coli Assessment and Plan (1) Adynamic ileus Narrative/Plan: Patient seems to be doing well from a GI point of view. Continue diet. Contin ue stool softeners. We'll sign off at this point. Please call if needed. Current Visit: Yes Status: Acute Code(s): K56.0 - PARALYTIC ILEUS SNOMED Code(s): 62865106
[2021-11-10] MEDS: FUROSEMIDE 40 MG TAB PO SCH ×2 (09:41→16:55)
[2021-11-10] MEDS: CYANOCOBALAMIN 500 MCG TAB PO SCH (09:41)
[2021-11-10] MEDS: acetaZOLAMIDE 250 MG TAB PO SCH (09:42)
[2021-11-10] MEDS: bisacodyL 10 MG SUPP RECTAL SCH (09:42)
[2021-11-10] MEDS: MAGNESIUM HYDROXIDE 2,400 MG/10 ML CUP PO SCH (09:42)
[2021-11-10] MEDS: METOPROLOL SUCCINATE (ER) 25 MG TAB.ER.24H PO SCH (09:43)
[2021-11-10] MEDS: CLOBETASOL PROP 0.05% CR 15GM TOPICAL SCH ×2 (09:46→20:57)
[2021-11-10] MEDS: FAMOTIDINE 20 MG TAB PO SCH (10:00)
[2021-11-10] MEDS: DULoxetine HCL 20 MG CAPSULE.DR PO SCH (20:57)
[2021-11-10] MEDS: ATORVASTATIN 40 MG TAB PO SCH (20:57)
[2021-11-11] MEDS: LEVOTHYROXINE 75 MCG TAB PO SCH (05:40)
[2021-11-11] MEDS: PREGABALIN 75 MG CAP PO SCH ×3 (05:40→22:21)
[2021-11-11] MEDS: FAMOTIDINE 20 MG TAB PO SCH (08:27)
[2021-11-11] MEDS: CYANOCOBALAMIN 500 MCG TAB PO SCH (08:27)
[2021-11-11] MEDS: MAGNESIUM HYDROXIDE 2,400 MG/10 ML CUP PO SCH (08:27)
[2021-11-11] MEDS: CLOBETASOL PROP 0.05% CR 15GM TOPICAL SCH ×2 (08:27→22:21)
[2021-11-11] MEDS: METOPROLOL SUCCINATE (ER) 25 MG TAB.ER.24H PO SCH (08:27)
[2021-11-11] MEDS: FUROSEMIDE 40 MG TAB PO SCH ×2 (08:27→16:54)
[2021-11-11] MEDS: bisacodyL 10 MG SUPP RECTAL SCH (08:28)
[2021-11-11] MEDS: acetaZOLAMIDE 250 MG TAB PO SCH (08:28)
[2021-11-11] MEDS: ALBUTEROL NEBULIZED 2.5 MG/3 ML INHALATION PRN ×2 (08:56→12:10)
[2021-11-11] MEDS: SYMBICORT 160-4.5 MCG INHALER INHALATION SCH ×2 (08:56→20:39)
[2021-11-11 10:42] LABS: ALT 9 U/L (4-34); African American GFR (CKD) 70 (>60 ml/min/1.73 sqM); Albumin 3.9 g/dL (3.5-5.0); Albumin/Globulin Ratio 1.2; Anion Gap 9 mmol/L; Blood Urea Nitrogen 14 mg/dL (7-17); Calcium 9.3 mg/dL (8.4-10.2); Carbon Dioxide 34 mmol/L (22-30); Chloride 99 mmol/L (98-107); Globulin 3.2 g/dL; Glucose 82 mg/dL (74-99); Non-African American GFR(CKD) 61 (>60 ml/min/1.73 sqM); Sodium 142 mmol/L (137-145); Total Protein 7.1 g/dL (6.3-8.2)
[2021-11-11 10:53] LABS: AST 32 U/L (14-36); Alkaline Phosphatase 65 U/L (38-126); Potassium 4.8 mmol/L (3.5-5.1)
[2021-11-11 10:55] LABS: Basophils % (A) 0 %; Eosinophils # (A) 0.3 k/uL (0-0.7); Eosinophils % (A) 4 %; HCT 44.3 % (34.0-46.0); HGB 13.3 gm/dL (11.4-16.0); Hypochromasia Marked; Lymphocytes # (A) 1.7 k/uL (1.0-4.8); Lymphocytes % (A) 25 %; MCH 32.5 pg (25.0-35.0); MCHC 30.1 g/dL (31.0-37.0); Macrocytosis Marked; Monocytes # (A) 0.4 k/uL (0-1.0); Monocytes % (A) 6 %; Neutrophils # (A) 4.3 k/uL (1.3-7.7); Neutrophils % (A) 64 %; Platelet Count 147 k/uL (150-450); RDW 15.5 % (11.5-15.5); WBC 6.8 k/uL (3.8-10.6)
[2021-11-11] MEDS: HYDROcodone/APAP 7.5-325MG 1 EACH TAB PO PRN ×2 (11:28→22:21)
--- NOTE | 2021-11-11 14:24 | XR ---
Abdomen HISTORY: Distention Frontal view of the abdomen submitted on 3 images and correlated prior abdomen 11/04/2021, CT 2 exam is somewhat limited by patient's body habitus. There are distended loops of bowel, stool filled loops of colon. Postop changes are present as on loreto or exam, there is a generator in the left gluteal region, leads coursing into the thoracic spinal can al. Lung bases are not included on the exam. No evident pneumoperitoneum. Contrast is thought likely to have coursed to the colon level. Bones are stable. IMPRESSION: Exam is limited technically. Colonic distention persists. Postop changes and additional f indings above.
[2021-11-11] MEDS ORDERED: Potassium Replacement Protocol 1 EACH MISC MISCELLANE PRN (14:27)
[2021-11-11] MEDS: POTASSIUM CHLORIDE ER 20 MEQ TAB.ER PO SCH ×2 (14:37→16:54)
[2021-11-11] MEDS: APIXABAN 2.5 MG TABLET PO SCH ×2 (14:37→22:20)
[2021-11-11 15:25] LABS: Appearance,Urine Cloudy (Clear); Bilirubin,Urine Negative (Negative); Blood,Urine Large (Negative); Color,Urine Yellow; Glucose,Urine (UA) Negative (Negative); Hyaline Casts,Urine 54 /lpf (0-2); Ketones,Urine Negative (Negative); Leukocyte Esterase,Urine Large (Negative); Mucus,Urine Few /hpf; Nitrite,Urine Positive (Negative); PH, Urine 6.5 (5.0-8.0); Protein,Urine 2+ (Negative); RBC,Urine >182 /hpf (0-5); Urobilinogen,Urine <2.0 mg/dL (<2.0); WBC,Urine 159 /hpf (0-5)
[2021-11-11] MEDS ORDERED: APIXABAN 2.5 MG TABLET PO SCH (21:00)
[2021-11-11] MEDS: LACTULOSE 20 GM/30 ML CUP PO SCH (22:21)
[2021-11-11] MEDS: ATORVASTATIN 40 MG TAB PO SCH (22:21)
[2021-11-11] MEDS: DULoxetine HCL 20 MG CAPSULE.DR PO SCH (22:21)
--- NOTE | 2021-11-12 02:13 | P.PN ---
Subjective Progress Note Date: 11/11/21 This is a pleasant 86 years old female with past medical history of Atrial Fib rillation, on Eliquis, heart Failure, CVA/TIA, Hypertension, Pneumonia, Sleep Apnea/CPAP/BIPAP, chronic back pain, ovarian cancer, C-DIFF infection , Depression Presents because of increased confusion, shortness of breath, weakness and inability to ambulate Patient was on BiPAP in bed comfortable, information obtained with the help of the daughter Jodi at bedside As per daughter patient is on 3 L/m of oxygen at home and she is on BiPAP at [facility] since July when she was sick. Her personnel worker is Dr. Bearden. 2 days ago patient was tired but, however yesterday she become really sick, it was so bad day for her as per daughter, she was confused, sleeping a lot, could not take her medication, she could not stand up. At baseline she walks about 15-21 feet. Then daughter noticed that she was becoming more hypoxic with oxygen dropped to 59% while on 3 L, she bumped up her oxygen to 4.5 L per minute and saturation improved to 83% as per daughter. So she called EMS for her. Patient is awake and alert, she notes she is in the current hospital in [place], she thought its 05/30/2022. And she is oriented to person as well. She denies any chest pain or dyspnea. She has her insight into her nose. She denies headache or weakness or numbness. No vomiting or diarrhea actually she is constipat she denies urinary symptoms but Doppler reports decreased urine output, She never smoked, she does not drink alcohol. Patient is hemodynamically stable, she is slightly tachypneic and 20 and hypoxic at 91% oxygen saturation on 2 L/m CBC is unremarkable, INR 1.1, arterial blood gas showing slightly low pH 7.34, high pCO2 73 and low pO2 at 60 Sodium 137, carbon dioxide elevated 39, creatinine high at 1.13, compared to baseline of 0.7-0.8 Liver enzymes not elevated, troponin negative and proBNP is low 587. Urine analysis is normal Coronavirus not detected Chest x-ray: Congestive heart failure with patchy atelectasis. Pulmonary navin estion improved compared to last exam CTA from 07/2021: No pulmonary embolism. Bilateral pulmonary patchy infiltrates and atelectasis. 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 Cardiology and pulmonary team consulted. 11/01/2021 Patient is more sleepy today although she awakes to verbal and tactile stimuli and answers some questions but she looks also slow. Most likely this could be related to her hypothyroidism. Her levothyroxine was started today at 37.5 g and increased for tomorrow at 50 g daily. But because she is also on Eliquis we will order CT of the brain to rule out intracranial bleed or acute pathology. She is hemodynamically stable, her oxygen is status improved and currently she is on 4 L/m which is close to her home dose of 3 L/m. Echocardiogram showed ejection fraction of 55-60% with moderate aortic stenosis. She remains on Eliquis 5 mg, IV Lasix 40 mg twice daily. Also we put the patient on a fluid restriction 1500 mL per day. Continue with Symbicort and albuterol when necessary 11/02/2021 Patient is more awake and interactive today. She has better appetite. She denies any specific symptoms. No dyspnea or tachypnea while sitting in bed most of the time. Minimal cough and no chest pain, no GI or urinary symptoms. Chest x-ray showing atelectasis and cardiomegaly. Labs showing mild pancytopenia with WBC 4.1, hemoglobin 10.3 and platelet count 123. She remains on a fluid restriction. She remains on IV Lasix 40 mg twice daily. Extremities on levothyroxine 50 units. We will check thyroid function test and B12 and folate. 11/03/2021 patient mentation is improving however she still lethargic and very weak Patient severely low hypothyroidism case. Levothyroid replacement therapy is a started. A shunt on 75 g daily with recommendation to check thyroid function tests in one month. Also vitamin B12 is deficient less than 150 we going to replace it with IM dose in 3 days and then continue with oral. Since she is on a blood thinner she'll be at risk of hematoma however it is thought that benefit more than risk. She remains on IV Lasix 40 mg 3 times a day. Potassium 2.9 been placed on monitored. Magnesium stable at 2.2. Patient will benefit from [facility] for rehab upon discharge 11/04/2021 Patient is seen and evaluated in follow-up this morning having some abdominal discomfort and per nursing staff bowel sounds are sluggish and patient had an episode of liquid stool last night and denies passing gas. Patient underwent abdominal and chest x-ray this morning which showed dilatation of large and small bowel loops an x-ray notes to correlate for possible bowel obstruction versus colonic ileus and have consulted general surgery and an order for a CT abdomen and pelvis is ordered and pending. We'll make the patient nothing by mouth and discuss further with surgery once CT abdomen is done. Pulmonary also following. 11/05/2021 Patient is seen and evaluated this morning and reports to some abdominal improvement although continues with distention and feeling bloated. Per nursing staff patient is having large amounts of gas and up to the commode multiple times with assistance although no bowel movement today. General surgery f ollowing for possible ileus. Patient with continued shortness of breath and pulmonary following and will order chest x-ray. Cardiology also following 11/06/2021 Patient is seen today in follow-up continues to have some abdominal bloating although feels it is slightly improved. Patient reports to having a bowel movement yesterday and reports to continued gas. Patient with indwelling Mai catheter for retention and patient was recently resumed on oral anticoagulant and started having some hematuria noted in the Mai. Will hold Eliquis and monitor closely for any further signs of active bleeding. Hemoglobin is stable at 12.9. Patient denies any painful burning or pressure or bladder discomfort. Patient is afebrile. Patient denies any worsening shortness of breath or chest pain. 11/07/2021 Patient is seen and evaluated in follow-up today currently sitting up in the chair reports to her abdominal distention feeling somewhat improved. Patient is passing gas and had a bowel movement yesterday but none today. Patient denies any abdominal pain and is asking for food. Patient has been maintained on ice chips and tolerating with no nausea or vomiting noted. Patient was noted hematuria in the indwelling Mai catheter and was recently resumed on eliquis and the increasing hematuria was noted. Anticoagulant on hold and there is some improvement noted in the Mai catheter. Urinalysis with culture was ordered and pending. Patient is afebrile denies any shortness of breath or chest pain. Cardiology also following and patient is continued on IV Lasix. Hemoglobin is s table today at 11.4. Potassium mildly low at 3.3 and will replace per protocol. 11/09/2021 Patient is seen and evaluated; nursing staff reporting multiple bowel movements yesterday; remains somewhat confused Vital signs are reviewed and reveal temperature of 98.3, pulse 68, respirations 16 and blood pressure of 112/70 Lab review reveals sodium 138, potassium 3.2, BUN/creatinine of 16/0.9 and blood glucose of 98 Surgery on board for abdominal ileus and recommending increase ambulation and encouraging oral intake Cardiology recommending to switch diuretics to oral; monitor renal function and electrolytes Patient to be discharged to skilled rehab once arrangements are made 11/11/2021 Patient is seen and evaluated in follow-up this morning and continues with some abdominal distention. Patient hematuria resolved and will resume low dose eliquis and monitor closely. Patient with urinary tract infection with ecoli and will start rocephin and order repeat Urinalysis. recommend replacing indwelling mai catheter with new urinalysis obtained. Patient followed by cardiology and have switched lasix to PO. Surgery following and recommending increased activity as tolerated and encouraged oral intake. Patient and staff report to having bowel movement yesterday. Patient is afebrile and denies chest pain or shortness of breath. Review of systems: Constitutional: No reports of fatigue, fever, or chills Cardiovascular: No reports of chest pain or palpitations Respiratory: No reports of worsening shortness of breath or cough GI: No reports of nausea, vomiting, or diarrhea, reports abdominal pain and bloating has improved, reports passing gas, reports no bowel movement today, but did have one yesterday : No reports of dysuria or retention Neurovascular: reports of generalized weakness All medications have been reviewed Active Medications Hydrocodone Bitart/Acetaminophen (Hydrocodone/Apap 7.5-325mg 1 Each Tab) 1 each PO BID PRN PRN Reason: moderate Pain Last Admin: 11/11/21 11:28 Dose: 1 each Documented by: Acetazolamide (Acetazolamide 250 Mg Tab) 250 mg PO DAILY RONY Last Admin: 11/11/21 08:28 Dose: 250 mg Documented by: Albuterol Sulfate (Albuterol Nebulized 2.5 Mg/3 Ml) 2.5 mg INHALATION RT-QID PRN PRN Reason: Shortness Of Breath Last Admin: 11/11/21 12:10 Dose: 2.5 mg Documented by: Apixaban (Apixaban 2.5 Mg Tablet) 2.5 mg PO BID [facility]; Protocol Last Admin: 11/11/21 14:37 Dose: 2.5 mg Documented by: Atorvastatin Calcium (Atorvastatin 40 Mg Tab) 40 mg PO HS@2100 [facility] Last Admin: 11/10/21 20:57 Dose: 40 mg Documented by: Bisacodyl (Bisacodyl 10 Mg Supp) 10 mg RECTAL DAILY [facility] Last Admin: 11/11/21 08:28 Dose: Not Given Documented by: Budesonide/Formoterol Fumarate (Symbicort 160-4.5 Mcg Inhaler) 2 puff INHALATION RT-BID@0900,2100 [facility] Last Admin: 11/11/21 08:56 Dose: 2 puff Documented by: Clobetasol Propionate (Clobetasol Prop 0.05% Cr 15gm) 1 applic TOPICAL Q12H [facility] Last Admin: 11/11/21 08:27 Dose: 1 applic Documented by: Cyanocobalamin (Cyanocobalamin 500 Mcg Tab) 1,000 mcg PO DAILY [facility] Last Admin: 11/11/21 08:27 Dose: 1,000 mcg Documented by: Docusate Sodium (Docusate 100 Mg Cap) 100 mg PO DAILY PRN PRN Reason: Constipation Last Admin: 11/02/21 21:49 Dose: 100 mg Documented by: Duloxetine HCl (Duloxetine Hcl 20 Mg Capsule.Dr) 20 mg PO HS@2100 [facility] Last Admin: 11/10/21 20:57 Dose: 20 mg Documented by: Famotidine (Famotidine 20 Mg Tab) 20 mg PO DAILY [facility] Last Admin: 11/11/21 08:27 Dose: 20 mg Documented by: Fluticasone Propionate (Fluticasone 50mcg/[place] Nasal 16gm) 1 spray EA NOSTRIL DAILY PRN PRN Reason: Allergy Symptoms Furosemide (Furosemide 40 Mg Tab) 40 mg PO BID@0900,1600 [facility] Last Admin: 11/11/21 08:27 Dose: 40 mg Documented by: Lactulose (Lactulose 20 Gm/30 Ml Cup) 20 gm PO BID [facility] Levothyroxine Sodium (Levothyroxine 75 Mcg Tab) 75 mcg PO DAILY@0630 [facility] Last Admin: 11/11/21 05:40 Dose: 75 mcg Documented by: Magnesium Hydroxide (Magnesium Hydroxide 2,400 Mg/10 Ml Cup) 2,400 mg PO DAILY [facility] Last Admin: 11/11/21 08:27 Dose: 2,400 mg Documented by: Metoprolol Succinate (Metoprolol Succinate (Er) 25 Mg Tab.Er.24h) 25 mg PO DAILY@0900 [facility] Last Admin: 11/11/21 08:27 Dose: 25 mg Documented by: Miscellaneous Information (Potassium Replacement Protocol 1 Each Misc) 1 each MISCELLANE DAILY PRN; Protocol PRN Reason: Per Protocol Potassium Chloride (Potassium Chloride Er 20 Meq Tab.Er) 20 meq PO Q1HR [facility]; Protocol Stop: 11/11/21 16:01 Last Admin: 11/11/21 14:37 Dose: 20 meq Documented by: Pregabalin (Pregabalin 75 Mg Cap) 150 mg PO TID@0600,1400,2200 [facility] Last Admin: 11/11/21 14:37 Dose: 150 mg Documented by: Ropinirole HCl (Ropinirole Hcl 1 Mg Tab) 3 mg PO BID@0900,2100 [facility] Last Admin: 11/11/21 08:28 Dose: 3 mg Documented by: Physical exam: GENERAL: The patient is alert and oriented x3. Well developed, well nourished. Morbidly obese. generally weak HEENT: Pupils are round and equally reacting to light. EOMI. No scleral icterus. No conjunctival pallor. Normocephalic, atraumatic. No pharyngeal erythema. No thyromegaly. CARDIOVASCULAR: S1 and S2 muffled PULMONARY: diminished breath sounds with some scattered rhonchi noted ABDOMEN: Soft, obese, nontender, less distended, bowel sounds. No palpable organomegaly. MUSCULOSKELETAL: No joint swelling or deformity. EXTREMITIES: No cyanosis, clubbing. Bilateral patellar like edema NEUROLOGICAL: Gross neurological examination did not reveal any focal deficits. diffusely weak SKIN: No rashes. no petechiae. Assessment: Acute hypoxic hypercapnic respiratory failure Acute Hypothyroidism abdominal pain and distention, possible ileus acute urinary tract infection, present on admission Hematuria Severe vitamin B12 deficiency Pancytopenia secondary to ineffective erythropoiesis from vitamin B12 deficiency Acute on chronic Diastolic CHF, EF 55-60% Acute on chronic hypoxic respiratory failure Acute COPD exacerbation possible obesity hypoventilation syndrome Mild acute kidney injury Paroxysmal atrial fibrillation History of CVA/TIA Hypertension History of sleep apnea Chronic back pain History of ovarian cancer History of depression Morbid obesity with BMI of 48.5 DVT prophylaxis GI Prophylaxis: Pepcid NO code Plan: This is a pleasant 86 years old female who presents with acute dyspnea and bilateral pulmonary infiltrate. Patient continues on oral Lasix along with inhaled steroids and bronchodilators and oxygen. Continue with BiPAP as needed and at night. currently on 3-4 L via OR Cardiology and pulmonary following, general surgery following for possible ileus, recommending close monitoring and will be following as needed. Recommend oral intake and increased activity as tolerated. Patient hematuria resolved and discussed with cardio about resuming eliquis and will resume low dose and monitor closely. Recommend repeat urinalysis with replacing mai catheter. Urine is cloudy and creamy with sediment noted. PT/OT: Recommended subacute rehab, social work following, patient will return to [facility] once stable, will need insurance auth for [facility] Continue current bowel regimen and monitoring of intake and output and diet being resumed and will monitor for tolerance, will add lactulose BID as repeat abdominal xray shows dilated bowel loops with stool noted. Prognosis is guarded The impression and plan of care has been dictated by Lorna Garg, Nurse Practitioner as directed. Dr. Vega MD I have performed a history and examination and MDM of this patient, discussed the same with the dictator, and agree with the dictator's assessment and plan as written ,documented as a scribe. Based on total visit time, I have performed more than 50% of the visit. Objective - Vital Signs Vital signs: Vital Signs Temp 97.3 F L 11/11/21 04:49 Pulse 62 11/11/21 09:09 Resp 22 11/11/21 04:49 BP 135/70 11/11/21 06:31 Pulse Ox 94 L 11/11/21 08:59 Intake & Output 11/10/21 11/11/21 11/11/21 18:59 06:59 18:59 Intake Total 360 560 Output Total 525 1200 Balance -165 -640 Weight 112 kg Intake: Oral 360 560 Output: Urine 525 1200 Other: Voiding Method Indwelling Catheter Indwelling Catheter # Voids 1 - Labs CBC & Chem 7: 11/11/21 10:00 11/11/21 10:00
[2021-11-12] MEDS: LEVOTHYROXINE 75 MCG TAB PO SCH (06:10)
[2021-11-12] MEDS: PREGABALIN 75 MG CAP PO SCH ×3 (06:10→21:54)
[2021-11-12 07:13] LABS: Basophils % (A) 1 %; Eosinophils # (A) 0.3 k/uL (0-0.7); Eosinophils % (A) 5 %; HCT 42.6 % (34.0-46.0); HGB 12.3 gm/dL (11.4-16.0); Hypochromasia Marked; Lymphocytes # (A) 1.1 k/uL (1.0-4.8); Lymphocytes % (A) 23 %; MCHC 28.9 g/dL (31.0-37.0); MCV 110.6 fL (80.0-100.0); Macrocytosis Marked; Mean Platelet Volume 9.6; Monocytes # (A) 0.4 k/uL (0-1.0); Monocytes % (A) 8 %; Neutrophils % (A) 60 %; Platelet Count 114 k/uL (150-450); RBC 3.85 m/uL (3.80-5.40); RDW 14.9 % (11.5-15.5)
[2021-11-12 07:25] LABS: African American GFR (CKD) 67 (>60 ml/min/1.73 sqM); Anion Gap 7 mmol/L; Blood Urea Nitrogen 15 mg/dL (7-17); Calcium 8.7 mg/dL (8.4-10.2); Carbon Dioxide 31 mmol/L (22-30); Chloride 101 mmol/L (98-107); Glucose 87 mg/dL (74-99); Non-African American GFR(CKD) 58 (>60 ml/min/1.73 sqM); Sodium 139 mmol/L (137-145)
[2021-11-12 07:40] LABS: Potassium 4.4 mmol/L (3.5-5.1)
[2021-11-12 07:57] LABS: Appearance,Urine Turbid (Clear); Bacteria,Urine Occasional /hpf; Bilirubin,Urine Negative (Negative); Blood,Urine Large (Negative); Color,Urine Yellow; Glucose,Urine (UA) Negative (Negative); Hyaline Casts,Urine 68 /lpf (0-2); Ketones,Urine Negative (Negative); Leukocyte Esterase,Urine Large (Negative); Mucus,Urine Few /hpf; Nitrite,Urine Positive (Negative); Protein,Urine 2+ (Negative); RBC,Urine >182 /hpf (0-5); Specific Gravity,Urine 1.021 (1.001-1.035); Urobilinogen,Urine <2.0 mg/dL (<2.0); WBC,Urine >182 /hpf (0-5)
[2021-11-12] MEDS: ALBUTEROL NEBULIZED 2.5 MG/3 ML INHALATION PRN (08:17)
[2021-11-12] MEDS: SYMBICORT 160-4.5 MCG INHALER INHALATION SCH ×2 (08:18→19:53)
[2021-11-12] MEDS: APIXABAN 2.5 MG TABLET PO SCH ×2 (09:38→21:54)
[2021-11-12] MEDS: CLOBETASOL PROP 0.05% CR 15GM TOPICAL SCH ×2 (09:38→21:55)
[2021-11-12] MEDS: CYANOCOBALAMIN 500 MCG TAB PO SCH (09:39)
[2021-11-12] MEDS: FAMOTIDINE 20 MG TAB PO SCH (09:39)
[2021-11-12] MEDS: FUROSEMIDE 40 MG TAB PO SCH ×2 (09:40→16:21)
[2021-11-12] MEDS: METOPROLOL SUCCINATE (ER) 25 MG TAB.ER.24H PO SCH (09:40)
[2021-11-12] MEDS: LACTULOSE 20 GM/30 ML CUP PO SCH ×2 (09:40→21:54)
[2021-11-12] MEDS: MAGNESIUM HYDROXIDE 2,400 MG/10 ML CUP PO SCH (09:40)
[2021-11-12] MEDS: acetaZOLAMIDE 250 MG TAB PO SCH (09:41)
[2021-11-12] MEDS: bisacodyL 10 MG SUPP RECTAL SCH (09:41)
[2021-11-12 16:07] LABS: Appearance,Urine Clear (Clear); Bacteria,Urine Rare /hpf; Bilirubin,Urine Negative (Negative); Blood,Urine Negative (Negative); Color,Urine Yellow; Glucose,Urine (UA) Negative (Negative); Hyaline Casts,Urine 31 /lpf (0-2); Ketones,Urine Negative (Negative); Leukocyte Esterase,Urine Small (Negative); Mucus,Urine Rare /hpf; Nitrite,Urine Negative (Negative); PH, Urine 5.5 (5.0-8.0); Protein,Urine Negative (Negative); RBC,Urine 2 /hpf (0-5); Specific Gravity,Urine 1.017 (1.001-1.035); Urobilinogen,Urine <2.0 mg/dL (<2.0); WBC,Urine 27 /hpf (0-5)
[2021-11-12] MEDS: ATORVASTATIN 40 MG TAB PO SCH (21:54)
[2021-11-12] MEDS: DULoxetine HCL 20 MG CAPSULE.DR PO SCH (21:54)
--- NOTE | 2021-11-12 22:09 | P.PN ---
Subjective Progress Note Date: 11/12/21 This is a pleasant 86 years old female with past medical history of Atrial Fib rillation, on Eliquis, heart Failure, CVA/TIA, Hypertension, Pneumonia, Sleep Apnea/CPAP/BIPAP, chronic back pain, ovarian cancer, C-DIFF infection , Depression Presents because of increased confusion, shortness of breath, weakness and inability to ambulate Patient was on BiPAP in bed comfortable, information obtained with the help of the daughter Jodi at bedside As per daughter patient is on 3 L/m of oxygen at home and she is on BiPAP at [facility] since July when she was sick. Her bread panner is Dr. Bearden. 2 days ago patient was tired but, however yesterday she become really sick, it was so bad day for her as per daughter, she was confused, sleeping a lot, could not take her medication, she could not stand up. At baseline she walks about 15-21 feet. Then daughter noticed that she was becoming more hypoxic with oxygen dropped to 59% while on 3 L, she bumped up her oxygen to 4.5 L per minute and saturation improved to 83% as per daughter. So she called EMS for her. Patient is awake and alert, she notes she is in the current hospital in [place], she thought its 05/30/2022. And she is oriented to person as well. She denies any chest pain or dyspnea. She has her insight into her nose. She denies headache or weakness or numbness. No vomiting or diarrhea actually she is constipat she denies urinary symptoms but Doppler reports decreased urine output, She never smoked, she does not drink alcohol. Patient is hemodynamically stable, she is slightly tachypneic and 20 and hypoxic at 91% oxygen saturation on 2 L/m CBC is unremarkable, INR 1.1, arterial blood gas showing slightly low pH 7.34, high pCO2 73 and low pO2 at 60 Sodium 137, carbon dioxide elevated 39, creatinine high at 1.13, compared to baseline of 0.7-0.8 Liver enzymes not elevated, troponin negative and proBNP is low 587. Urine analysis is normal Coronavirus not detected Chest x-ray: Congestive heart failure with patchy atelectasis. Pulmonary navin estion improved compared to last exam CTA from 07/2021: No pulmonary embolism. Bilateral pulmonary patchy infiltrates and atelectasis. 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 Cardiology and pulmonary team consulted. 11/01/2021 Patient is more sleepy today although she awakes to verbal and tactile stimuli and answers some questions but she looks also slow. Most likely this could be related to her hypothyroidism. Her levothyroxine was started today at 37.5 g and increased for tomorrow at 50 g daily. But because she is also on Eliquis we will order CT of the brain to rule out intracranial bleed or acute pathology. She is hemodynamically stable, her oxygen is status improved and currently she is on 4 L/m which is close to her home dose of 3 L/m. Echocardiogram showed ejection fraction of 55-60% with moderate aortic stenosis. She remains on Eliquis 5 mg, IV Lasix 40 mg twice daily. Also we put the patient on a fluid restriction 1500 mL per day. Continue with Symbicort and albuterol when necessary 11/02/2021 Patient is more awake and interactive today. She has better appetite. She denies any specific symptoms. No dyspnea or tachypnea while sitting in bed most of the time. Minimal cough and no chest pain, no GI or urinary symptoms. Chest x-ray showing atelectasis and cardiomegaly. Labs showing mild pancytopenia with WBC 4.1, hemoglobin 10.3 and platelet count 123. She remains on a fluid restriction. She remains on IV Lasix 40 mg twice daily. Extremities on levothyroxine 50 units. We will check thyroid function test and B12 and folate. 11/03/2021 patient mentation is improving however she still lethargic and very weak Patient severely low hypothyroidism case. Levothyroid replacement therapy is a started. A shunt on 75 g daily with recommendation to check thyroid function tests in one month. Also vitamin B12 is deficient less than 150 we going to replace it with IM dose in 3 days and then continue with oral. Since she is on a blood thinner she'll be at risk of hematoma however it is thought that benefit more than risk. She remains on IV Lasix 40 mg 3 times a day. Potassium 2.9 been placed on monitored. Magnesium stable at 2.2. Patient will benefit from [facility] for rehab upon discharge 11/04/2021 Patient is seen and evaluated in follow-up this morning having some abdominal discomfort and per nursing staff bowel sounds are sluggish and patient had an episode of liquid stool last night and denies passing gas. Patient underwent abdominal and chest x-ray this morning which showed dilatation of large and small bowel loops an x-ray notes to correlate for possible bowel obstruction versus colonic ileus and have consulted general surgery and an order for a CT abdomen and pelvis is ordered and pending. We'll make the patient nothing by mouth and discuss further with surgery once CT abdomen is done. Pulmonary also following. 11/05/2021 Patient is seen and evaluated this morning and reports to some abdominal improvement although continues with distention and feeling bloated. Per nursing staff patient is having large amounts of gas and up to the commode multiple times with assistance although no bowel movement today. General surgery f ollowing for possible ileus. Patient with continued shortness of breath and pulmonary following and will order chest x-ray. Cardiology also following 11/06/2021 Patient is seen today in follow-up continues to have some abdominal bloating although feels it is slightly improved. Patient reports to having a bowel movement yesterday and reports to continued gas. Patient with indwelling Mai catheter for retention and patient was recently resumed on oral anticoagulant and started having some hematuria noted in the Mai. Will hold Eliquis and monitor closely for any further signs of active bleeding. Hemoglobin is stable at 12.9. Patient denies any painful burning or pressure or bladder discomfort. Patient is afebrile. Patient denies any worsening shortness of breath or chest pain. 11/07/2021 Patient is seen and evaluated in follow-up today currently sitting up in the chair reports to her abdominal distention feeling somewhat improved. Patient is passing gas and had a bowel movement yesterday but none today. Patient denies any abdominal pain and is asking for food. Patient has been maintained on ice chips and tolerating with no nausea or vomiting noted. Patient was noted hematuria in the indwelling Mai catheter and was recently resumed on eliquis and the increasing hematuria was noted. Anticoagulant on hold and there is some improvement noted in the Mai catheter. Urinalysis with culture was ordered and pending. Patient is afebrile denies any shortness of breath or chest pain. Cardiology also following and patient is continued on IV Lasix. Hemoglobin is s table today at 11.4. Potassium mildly low at 3.3 and will replace per protocol. 11/09/2021 Patient is seen and evaluated; nursing staff reporting multiple bowel movements yesterday; remains somewhat confused Vital signs are reviewed and reveal temperature of 98.3, pulse 68, respirations 16 and blood pressure of 112/70 Lab review reveals sodium 138, potassium 3.2, BUN/creatinine of 16/0.9 and blood glucose of 98 Surgery on board for abdominal ileus and recommending increase ambulation and encouraging oral intake Cardiology recommending to switch diuretics to oral; monitor renal function and electrolytes Patient to be discharged to skilled rehab once arrangements are made 11/11/2021 Patient is seen and evaluated in follow-up this morning and continues with some abdominal distention. Patient hematuria resolved and will resume low dose eliquis and monitor closely. Patient with urinary tract infection with ecoli and will start rocephin and order repeat Urinalysis. recommend replacing indwelling mai catheter with new urinalysis obtained. Patient followed by cardiology and have switched lasix to PO. Surgery following and recommending increased activity as tolerated and encouraged oral intake. Patient and staff report to having bowel movement yesterday. Patient is afebrile and denies chest pain or shortness of breath. 11/12/2021 Patient is seen today and has been having bowel movements and passing gas. Patient is tolerating diet and reports to improvement in abdominal distention. Xray shows continued bowel loops with stool and will continue with lactulose twice daily and to hold for loose stools. Patient is to continue with bowel regimen per surgery as well. Patient with indwelling mai catheter with ecoli on urine culture and is maintained on IV ceftriaxone for now and will likely transition to oral on discharge. Replaced mai catheter and repeat urinalysis much improved. Continue with indwelling mai catheter for retention. Patient is afebrile. Patient denies chest pain or shortness of breath. Patient denies any nausea or vomiting. Review of systems: Constitutional: No reports of fatigue, fever, or chills Cardiovascular: No reports of chest pain or palpitations Respiratory: No reports of worsening shortness of breath or cough GI: No reports of nausea, vomiting, or diarrhea, reports abdominal pain and bloating has improved, reports passing gas, reports bowel movement today, and yesterday : No reports of dysuria or retention Neurovascular: reports of generalized weakness All medications have been reviewed Active Medications Hydrocodone Bitart/Acetaminophen (Hydrocodone/Apap 7.5-325mg 1 Each Tab) 1 each PO BID PRN PRN Reason: moderate Pain Last Admin: 11/11/21 22:21 Dose: 1 each Documented by: Acetazolamide (Acetazolamide 250 Mg Tab) 250 mg PO DAILY [facility] Last Admin: 11/12/21 09:41 Dose: 250 mg Documented by: Albuterol Sulfate (Albuterol Nebulized 2.5 Mg/3 Ml) 2.5 mg INHALATION RT-QID PRN PRN Reason: Shortness Of Breath Last Admin: 11/12/21 08:17 Dose: 2.5 mg Documented by: Apixaban (Apixaban 2.5 Mg Tablet) 2.5 mg PO BID [facility]; Protocol Last Admin: 11/12/21 21:54 Dose: 2.5 mg Documented by: Atorvastatin Calcium (Atorvastatin 40 Mg Tab) 40 mg PO HS@2100 [facility] Last Admin: 11/12/21 21:54 Dose: 40 mg Documented by: Bisacodyl (Bisacodyl 10 Mg Supp) 10 mg RECTAL DAILY [facility] Last Admin: 11/12/21 09:41 Dose: 10 mg Documented by: Budesonide/Formoterol Fumarate (Symbicort 160-4.5 Mcg Inhaler) 2 puff INHALATION RT-BID@0900,2100 [facility] Last Admin: 11/12/21 19:53 Dose: Not Given Documented by: Clobetasol Propionate (Clobetasol Prop 0.05% Cr 15gm) 1 applic TOPICAL Q12H [facility] Last Admin: 11/12/21 21:55 Dose: 1 applic Documented by: Cyanocobalamin (Cyanocobalamin 500 Mcg Tab) 1,000 mcg PO DAILY [facility] Last Admin: 11/12/21 09:39 Dose: 1,000 mcg Documented by: Docusate Sodium (Docusate 100 Mg Cap) 100 mg PO DAILY PRN PRN Reason: Constipation Last Admin: 11/02/21 21:49 Dose: 100 mg Documented by: Duloxetine HCl (Duloxetine Hcl 20 Mg Capsule.Dr) 20 mg PO HS@2100 [facility] Last Admin: 11/12/21 21:54 Dose: 20 mg Documented by: Famotidine (Famotidine 20 Mg Tab) 20 mg PO DAILY [facility] Last Admin: 11/12/21 09:39 Dose: 20 mg Documented by: Fluticasone Propionate (Fluticasone 50mcg/Gooding Nasal 16gm) 1 spray EA NOSTRIL DAILY PRN PRN Reason: Allergy Symptoms Furosemide (Furosemide 40 Mg Tab) 40 mg PO BID@0900,1600 [facility] Last Admin: 11/12/21 16:21 Dose: 40 mg Documented by: Ceftriaxone Sodium 2 gm/ (Sodium Chloride) 50 mls @ 100 mls/hr IVPB Q24H [facility]; Protocol Last Admin: 11/12/21 10:44 Dose: 100 mls/hr Documented by: Lactulose (Lactulose 20 Gm/30 Ml Cup) 20 gm PO BID [facility] Last Admin: 11/12/21 21:54 Dose: 20 gm Documented by: Levothyroxine Sodium (Levothyroxine 75 Mcg Tab) 75 mcg PO DAILY@0630 [facility] Last Admin: 11/12/21 06:10 Dose: 75 mcg Documented by: Magnesium Hydroxide (Magnesium Hydroxide 2,400 Mg/10 Ml Cup) 2,400 mg PO DAILY [facility] Last Admin: 11/12/21 09:40 Dose: 2,400 mg Documented by: Metoprolol Succinate (Metoprolol Succinate (Er) 25 Mg Tab.Er.24h) 25 mg PO DAILY@0900 [facility] Last Admin: 11/12/21 09:40 Dose: 25 mg Documented by: Miscellaneous Information (Potassium Replacement Protocol 1 Each Misc) 1 each MISCELLANE DAILY PRN; Protocol PRN Reason: Per Protocol Pregabalin (Pregabalin 75 Mg Cap) 150 mg PO TID@0600,1400,2200 [facility] Last Admin: 11/12/21 21:54 Dose: 150 mg Documented by: Ropinirole HCl (Ropinirole Hcl 1 Mg Tab) 3 mg PO BID@0900,2100 [facility] Last Admin: 11/12/21 21:54 Dose: 3 mg Documented by: Physical exam: GENERAL: The patient is alert and oriented x3. Well developed, well nourished. Morbidly obese. generally weak HEENT: Pupils are round and equally reacting to light. EOMI. No scleral icterus. No conjunctival pallor. Normocephalic, atraumatic. No pharyngeal erythema. No thyromegaly. CARDIOVASCULAR: S1 and S2 muffled PULMONARY: diminished breath sounds with some scattered rhonchi noted ABDOMEN: Soft, obese, nontender, less distended, bowel sounds. No palpable organomegaly. MUSCULOSKELETAL: No joint swelling or deformity. EXTREMITIES: No cyanosis, clubbing. Bilateral patellar like edema NEUROLOGICAL: Gross neurological examination did not reveal any focal deficits. diffusely weak SKIN: No rashes. no petechiae. Assessment: Acute hypoxic hypercapnic respiratory failure Acute Hypothyroidism abdominal pain and distention, possible ileus acute urinary tract infection, present on admission Hematuria Severe vitamin B12 deficiency Pancytopenia secondary to ineffective erythropoiesis from vitamin B12 deficiency Acute on chronic Diastolic CHF, EF 55-60% Acute on chronic hypoxic respiratory failure Acute COPD exacerbation possible obesity hypoventilation syndrome Mild acute kidney injury Paroxysmal atrial fibrillation History of CVA/TIA Hypertension History of sleep apnea Chronic back pain History of ovarian cancer History of depression Morbid obesity with BMI of 48.5 DVT prophylaxis GI Prophylaxis: Pepcid NO code Plan: This is a pleasant 86 years old female who presents with acute dyspnea and bilateral pulmonary infiltrate. Patient continues on oral Lasix along with inhaled steroids and bronchodilators and oxygen. Continue with BiPAP as needed and at night. currently on 3-4 L via NM Cardiology and pulmonary following, general surgery following for possible ileus, recommending close monitoring and will be following as needed. Recommend oral intake and increased activity as tolerated. Patient hematuria resolved and discussed with cardio and resumed eliquis and will resume low dose and monitor closely. Recommend repeat urinalysis with replacing mai catheter. Repeat urinalysis much improved from previous Continue rocephin and will transition to oral on discharge. Awaiting repeat cultures as it was ecoli. PT/OT: Recommended subacute rehab, social work following, patient will return to [facility] once stable, have obtained insurance auth for [facility] Continue current bowel regimen and monitoring of intake and output and diet bein g resumed and will monitor for tolerance, will continue lactulose BID and bowel regimen Prognosis is guarded Anticipate discharge to [facility] in 24 hours. The impression and plan of care has been dictated by Lorna Garg, Nurse Practitioner as directed. Dr. Vega MD I have performed a history and examination and MDM of this patient, discussed the same with the dictator, and agree with the dictator's assessment and plan as written ,documented as a scribe. Based on total visit time, I have performed more than 50% of the visit. Objective - Vital Signs Vital signs: Vital Signs Temp 98.1 F 11/12/21 12:19 Pulse 60 04/19/22 12:19 Resp 20 11/12/21 12:19 BP 126/77 11/12/21 12:19 Pulse Ox 93 L 11/12/21 12:19 Intake & Output 11/11/21 11/12/21 11/12/21 18:59 06:59 18:59 Intake Total 640 120 Output Total 200 300 300 Balance 440 -180 -300 Weight 113 kg Intake: IV 120 0.9 120 Intake, IV Titration 100 Amount cefTRIAXone 2 gm In 100 Sodium Chloride 0.9% 50 ml @ 100 mls/hr IVPB ONCE STA Rx#:[id number] Oral 540 Output: Urine 200 300 300 Uretheral (Mai) 300 150 Other: Voiding Method Indwelling Catheter Indwelling Catheter Incontinent Indwelling Catheter # Bowel Movements 1 - Labs CBC & Chem 7: 11/12/21 07:02 11/12/21 07:02 Labs: Abnormal Lab Results - Last 24 Hours (Table) 11/11/21 11/12/21 11/12/21 Range/Units 15:00 07:02 07:02 MCV 110.6 H (80.0-100.0) fL MCHC 28.9 L (31.0-37.0) g/dL Plt Count 114 L (150-450) k/uL Macrocytosis Marked A Carbon Dioxide 31 H (22-30) mmol/L Urine Appearance Cloudy H (Clear) Urine Protein 2+ H (Negative) Urine Blood Large H (Negative) Urine Nitrite Positive H (Negative) Ur Leukocyte Esterase Large H (Negative) Urine RBC >182 H (0-5) /hpf Urine WBC 159 H (0-5) /hpf Urine WBC Clumps Few H (None) /hpf Urine Bacteria (None) /hpf Hyaline Casts 54 H (0-2) /lpf Urine Mucus Few H (None) /hpf 11/12/21 Range/Units 07:30 MCV (80.0-100.0) fL MCHC (31.0-37.0) g/dL Plt Count (150-450) k/uL Macrocytosis Carbon Dioxide (22-30) mmol/L Urine Appearance Turbid H (Clear) Urine Protein 2+ H (Negative) Urine Blood Large H (Negative) Urine Nitrite Positive H (Negative) Ur Leukocyte Esterase Large H (Negative) Urine RBC >182 H (0-5) /hpf Urine WBC >182 H (0-5) /hpf Urine WBC Clumps Many H (None) /hpf Urine Bacteria Occasional H (None) /hpf Hyaline Casts 68 H (0-2) /lpf Urine Mucus Few H (None) /hpf Microbiology - Last 24 Hours (Table) 11/11/21 15:00 Urine Culture - Preliminary Urine,Voided
[2021-11-13] MEDS: HYDROcodone/APAP 7.5-325MG 1 EACH TAB PO PRN ×2 (04:14→20:56)
[2021-11-13] MEDS: PREGABALIN 75 MG CAP PO SCH ×3 (05:53→20:56)
[2021-11-13] MEDS: LEVOTHYROXINE 75 MCG TAB PO SCH (05:53)
[2021-11-13] MEDS: ALBUTEROL NEBULIZED 2.5 MG/3 ML INHALATION PRN ×2 (07:29→11:26)
[2021-11-13] MEDS: SYMBICORT 160-4.5 MCG INHALER INHALATION SCH ×2 (07:29→19:19)
[2021-11-13] MEDS: MAGNESIUM HYDROXIDE 2,400 MG/10 ML CUP PO SCH (09:12)
[2021-11-13] MEDS: LACTULOSE 20 GM/30 ML CUP PO SCH ×2 (09:13→20:56)
[2021-11-13] MEDS: acetaZOLAMIDE 250 MG TAB PO SCH (09:14)
[2021-11-13] MEDS: APIXABAN 2.5 MG TABLET PO SCH ×2 (09:14→20:55)
[2021-11-13] MEDS: FAMOTIDINE 20 MG TAB PO SCH (09:14)
[2021-11-13] MEDS: FUROSEMIDE 40 MG TAB PO SCH ×2 (09:14→16:10)
[2021-11-13] MEDS: METOPROLOL SUCCINATE (ER) 25 MG TAB.ER.24H PO SCH (09:14)
[2021-11-13] MEDS: CLOBETASOL PROP 0.05% CR 15GM TOPICAL SCH ×2 (09:15→20:55)
[2021-11-13] MEDS: CYANOCOBALAMIN 500 MCG TAB PO SCH (09:15)
[2021-11-13] MEDS: bisacodyL 10 MG SUPP RECTAL SCH (09:15)
--- NOTE | 2021-11-13 13:06 | PN ---
PROGRESS NOTE DATE OF SERVICE: 11/13/2021 This 86-year-old woman who was admitted with multiple medical problems, including acute hypoxic hypercarbic respiratory failure, had a UTI also. No chest pain. No palpitations. Gram-negative bacilli grown from the latest cultures. Final ID is pending. No chest pain. No palpitations. Patient also had abdominal ileus. PHYSICAL EXAMINATION: Pulse 67, blood pressure 130/70, respiration 20. CHEST: Clear to auscultation except for a few scattered rhonchi. CARDIOVASCULAR: S1, S2 muffled. ABDOMEN: Soft. Mild diffuse distention. Nontender. Unchanged from previous. Bowel sounds present. NERVOUS SYSTEM: Mild diffuse weakness. LABS: Reviewed. Hemoglobin 12.3. ASSESSMENT: 1. Acute hypoxic hypercarbic respiratory failure. 2. Acute hypothyroidism. 3. Abdomen distention, abdominal ileus. 4. Acute urinary tract infection, present on admission. 5. Hematuria. 6. Severe vitamin B12 deficiency. 7. Pancytopenia. 8. Multiple complex medical issues. 9. Escherichia coli urinary tract infection. RECOMMENDATION AND DISCUSSION: I recommend to continue current medications, continue with the monitoring, symptomatic treatment. Continue with the antibiotics as mentioned earlier. Will await the ID of the Gram-negative bacilli. E coli was sensitive to antibiotics. We will continue to monitor. Currently the patient is on Rocephin. Further recommendations to follow. Prognosis guarded. Discussed with the family. TAMIA / CATHYN: [id number] /
--- NOTE | 2021-11-13 13:59 | US ---
EXAMINATION TYPE: US kidneys/renal and bladder DATE OF EXAM: 11/13/2021 COMPARISON: CT dated 11/04/2021 CLINICAL HISTORY: positive UA. elderly female with known left renal cysts EXAM MEASUREMENTS: Right Kidney: 11.3 x 3.9 x 4.4 cm Left Kidney: 12.4 x 3.8 x 4.5 cm Right Kidney: No hydronephrosis or masses seen Left Kidney: Cyst are noted within the left kidney one of which measures 3.0 x 3.2 x 3.0cm the upper pole and the other approximately 3.1 cm in greatest dimension Bladder: mai, unable to visualize There is no evidence for hydronephrosis at this point in time. No nephrolithiasis is seen. No kathie s are identified. Cortical medullary differentiation is maintained. The urinary bladder is anechoic. Bilateral ureteral jets are seen. IMPRESSION: Simple cysts left kidney
[2021-11-13] MEDS: ATORVASTATIN 40 MG TAB PO SCH (20:55)
[2021-11-13] MEDS: DULoxetine HCL 20 MG CAPSULE.DR PO SCH (20:55)
--- NOTE | 2021-11-14 00:19 | P.CONS ---
History of Present Illness - Reason for Consult Consult date: 11/13/21 Gram-negative urinary tract infection Requesting physician: Anibal Ferrari - Chief Complaint shortness of breath x few days - History of Present Illness Patient is 86-year-old female with multiple comorbidities including atrial fibrillation heart failure CVA TIA hypertension presented to the hospital about 2 weeks ago for evaluation of increasing shortness of breath and confusion this patient has been diagnosed with a possible CHF and has been evaluated by multiple consultants including pulmonary and cardiology services patient on presentation to the hospital was afebrile and no fever have been recorded subsequently patient did have a normal white count kidney function has been normal patient did have multiple UA during this hospital admission admission UA was negative a week later the patient did have a cloudy urine which did grow E. coli patient also have a urine culture repeated on the which is showing E. coli patient currently being treated with the Roceppan infectious disease was consulted for further management of antibiotic today, patient did have a Ramos catheter that has been placed during this hospital stay as apparently the patient did have difficulty getting up and around patient denies having any suprapubic or flank pain patient denies having any nausea vomiting and the patient is breathing more comfortably no chest pain or cough Review of Systems Positive point has been mentioned in the HPI rest of the systems are negative Past Medical History Past Medical History: Atrial Fibrillation, Cancer, Heart Failure, COPD, Fibromyalgia, GERD/Reflux, Hyperlipidemia, Hypertension, Osteoarthritis (OA), Pneumonia, Respiratory Disorder, Skin Disorder, Sleep Apnea/CPAP/BIPAP Additional Past Medical History / Comment(s): Chronic hypoxic and hypercanpnic respiratory failure/obesity hypoventilation syndrome, home O2 at 4L/NC daytime and Bipap at night, past pneumonias and covid pneumonia 05/2021, pulmonary fibrosis, cardiac valve disease, ovarian cancer with surgery/chemo/radiation, benign brain tumor removed, PVCs, chronic back pain/bilateral hips and shoulders, RLS, psoriasis, sacral decub, 1998 Cdiff colitis. History of Any Multi-Drug Resistant Organisms: C-DIFF Year Discovered:: stool MDRO Source:: 1998 Past Surgical History: Back Surgery, Heart Catheterization, Hernia Repair, Hysterectomy, Joint Replacement, Tonsillectomy Additional Past Surgical History / Comment(s): Total hysterectomy, incisional hernia with mesh which later became imfected and had exploratory laparatomy/wound vac, back surgeries x2, EGD, colonoscopy, hemorrhoidectomy, loop recorder, brain tumor removed, bilateral total knee arthroplasties, bilateral cataract surgery. Past Anesthesia/Blood Transfusion Reactions: No Reported Reaction Smoking Status: Never smoker - Past Family History Father Family Medical History: Myocardial Infarction (IA) Additional Family Medical History / Comment(s): Father of a IA at the age of 56yrs. Mother Additional Family Medical History / Comment(s): parkinson's Sister(s) Family Medical History: Cancer Medications and Allergies Home Medications Medication Instructions Recorded Confirmed Type Atorvastatin [Lipitor] 40 mg PO HS@209908/17/17 10/31/21 History DULoxetine HCL [Cymbalta] 20 mg PO HS@209910/16/17 10/31/21 History Fluticasone Nasal [place] [Flonase 1 spr EA NOSTRIL DAILY PRN 12/12/19 10/31/21 History Nasal [place]] Metoprolol Succinate [Toprol XL] 25 mg PO DAILY@89912/12/19 10/31/21 History Triamcinolone 0.1% Ointment 1 applic TOPICAL Q12H PRN 06/15/21 10/31/21 History [Kenalog 0.1% Ointment] rOPINIRole HCL [Requip] 3 mg PO BID@899,209906/15/21 10/31/21 History Albuterol Inhaler [Ventolin Hfa 2 puff INHALATION RT-QID PRN 07/17/21 10/31/21 History Inhaler] Ascorbic Acid [Vitamin C] 500 mg PO HS@209908/21/21 10/31/21 History Budesonide-Formot 160-4.5 Mcg 2 puff INHALATION RT-BID@899,209908/21/21 10/31/21 History [Symbicort 160-4.5 Mcg Inhaler] Cholecalciferol [Vitamin D3 (25 25 mcg PO DAILY@89908/21/21 10/31/21 History Mcg = 1000 Iu)] Ipratropium-Albuterol Nebulize 3 ml INHALATION RT-QID 08/21/21 10/31/21 History [Duoneb 0.5 mg-3 mg/3 ml Soln] acetaZOLAMIDE [Diamox] 250 mg PO DAILY@89908/21/21 10/31/21 History Clobetasol Propionate [Clobex 1 applic TOPICAL Q12H 10/31/21 10/31/21 History [place] 0.05%] Melatonin [Melatonin Chew] 2.5 mg PO HS 10/31/21 10/31/21 History Albuterol Nebulized [Ventolin 2.5 mg INHALATION RT-QID PRN ml 11/12/21 Rx Nebulized] Apixaban [Eliquis] 2.5 mg PO BID tablet 11/12/21 Rx Cyanocobalamin [Vitamin B-12] 1,000 mcg PO DAILY tab 11/12/21 Rx Docusate [Colace] 100 mg PO DAILY PRN cap 11/12/21 Rx Famotidine [Pepcid] 20 mg PO DAILY tab 11/12/21 Rx Furosemide [Lasix] 40 mg PO BID@0900,1600 tab 11/12/21 Rx HYDROcodone/APAP 7.5-325MG [[place] 1 tab PO BID PRN #6 tab 11/12/21 Rx 7.5-325] Lactulose [Cephulac] 20 gm PO BID ml 11/12/21 Rx Levothyroxine Sodium [Synthroid] 75 mcg PO DAILY@0630 tab 11/12/21 Rx Magnesium Hydroxide [Milk of 2,400 mg PO DAILY ml 11/12/21 Rx Magnesia Concentrate] Pregabalin [Lyrica] 150 mg PO TID@0600,1400,2200 #6 cap 11/12/21 Rx bisacodyL [Dulcolax] 10 mg RECTAL DAILY supp 11/12/21 Rx Allergies Allergy/AdvReac Type Severity Reaction Status Date / Time Penicillins Allergy Swelling/it Verified 10/31/21 02:45 lolis Physical Exam Vitals: Vital Signs Temp Pulse Pulse Resp BP Pulse Ox 11/13/21 19:58 98.4 F 59 L 20 123/62 96 11/13/21 16:09 61 100/58 11/13/21 12:35 98.5 F 65 16 98/64 91 L 11/13/21 11:40 63 11/13/21 11:30 67 11/13/21 09:33 60 20 11/13/21 08:10 97.6 F 60 20 113/58 92 L 11/13/21 07:29 56 L 11/13/21 04:16 98.3 F 58 L 16 123/61 94 L 11/12/21 21:30 98.5 F 56 L 20 95/56 96 Intake and Output 11/13/21 11/13/21 11/13/21 06:59 14:59 22:59 Intake Total 120 560 600 Output Total 975 100 Balance -855 460 600 Intake: IV 120 0.9 120 Intake, IV Titration 50 Amount cefTRIAXone 2 gm In 50 Sodium Chloride 0.9% 50 ml @ 100 mls/hr IVPB Q24H [facility] Rx#:[id number] Oral 560 550 Output: Urine 975 100 Other: Voiding Method Indwelling Catheter Weight 116 kg GENERAL DESCRIPTION: An elderly female lying in bed, no distress. No tachypnea or accessory muscle of respiration use. HEENT: Shows Pallor , no scleral icterus. Oral mucous membrane is dry. No pharyngeal erythema or thrush NECK: Trachea central, no thyromegaly. LUNGS: Unlabored breathing. Decreased breath sound at the base. No wheeze or crackle. HEART: S1, S2, regular rate and rhythm. No loud murmur ABDOMEN: Soft, no tenderness , guarding or rigidity, no organomegaly EXTREMITIES: No edema of feet. SKIN: No rash, no masses palpable. NEUROLOGICAL: The patient is awake, alert, oriented x3, mood and affect normal. Results CBC & Chem 7: 11/12/21 07:02 11/12/21 07:02 Labs: Microbiology - Last 24 Hours (Table) 11/12/21 15:30 Urine Culture - Final Urine,Voided 11/11/21 15:00 Urine Culture - Final Urine,Voided Escherichia coli Assessment and Plan (1) UTI (urinary tract infection) Current Visit: Yes Status: Acute Code(s): N39.0 - URINARY TRACT INFECTION, SITE NOT SPECIFIED SNOMED Code(s): 67276572 Plan: 1patient with multiple positive UA and cultures predominantly growing E. coli in this patient did have a Ramos catheter during this hospital admission with a question of possible Ramos colonization versus mild cystitis clinical not behaving as a deep infection in this patient with no fever or elevated white count. 2recommend to discontinue this Ramos catheter decrease risk of further UTI and obtain a UA of d discontinuation ration of the Ramos, 3May continue with Rocephin for short course We will follow on clinical condition and cultures to further adjust medication if needed Thank you for this consultation will follow this patient along with you Time with Patient: Greater than 30
[2021-11-14] MEDS: LEVOTHYROXINE 75 MCG TAB PO SCH (05:35)
[2021-11-14] MEDS: PREGABALIN 75 MG CAP PO SCH ×3 (05:35→21:15)
[2021-11-14] MEDS: ALBUTEROL NEBULIZED 2.5 MG/3 ML INHALATION PRN ×4 (07:42→20:07)
[2021-11-14] MEDS: SYMBICORT 160-4.5 MCG INHALER INHALATION SCH ×2 (07:55→20:07)
[2021-11-14] MEDS: CYANOCOBALAMIN 500 MCG TAB PO SCH (08:35)
[2021-11-14] MEDS: acetaZOLAMIDE 250 MG TAB PO SCH (08:35)
[2021-11-14] MEDS: FUROSEMIDE 40 MG TAB PO SCH ×2 (08:35→15:42)
[2021-11-14] MEDS: FAMOTIDINE 20 MG TAB PO SCH (08:35)
[2021-11-14] MEDS: METOPROLOL SUCCINATE (ER) 25 MG TAB.ER.24H PO SCH (08:35)
[2021-11-14] MEDS: MAGNESIUM HYDROXIDE 2,400 MG/10 ML CUP PO SCH (08:35)
[2021-11-14] MEDS: bisacodyL 10 MG SUPP RECTAL SCH (08:35)
[2021-11-14] MEDS: LACTULOSE 20 GM/30 ML CUP PO SCH ×2 (08:35→21:16)
[2021-11-14] MEDS: APIXABAN 2.5 MG TABLET PO SCH ×2 (08:35→21:14)
[2021-11-14] MEDS: CLOBETASOL PROP 0.05% CR 15GM TOPICAL SCH ×2 (08:36→23:51)
[2021-11-14 09:45] LABS: HCT 35.5 % (37.2-46.3); HGB 10.2 g/dL (12.0-15.0); MCH 31.1 pg (27.0-32.0); MCHC 28.7 g/dL (32.0-37.0); MCV 108.2 fL (80.0-97.0); Mean Platelet Volume 12.3 fL (9.5-12.2); NRBC Per 100 WBC 0 /100 WBCS (0.0-0.0); Platelet Count 140 X 10*3/uL (140-440); RBC 3.28 X 10*6/uL (4.10-5.20); RDW 15.1 % (11.5-14.5); WBC 4.07 X 10*3/uL (4.50-10.00)
[2021-11-14 09:51] LABS: African American GFR (CKD) 77.9 (60.0-200.0); Anion Gap 6.1 mmol/L (10.00-18.00); BUN/Creat Ratio 13.38 Ratio (12.00-20.00); Blood Urea Nitrogen 10.7 mg/dL (9.0-27.0); Calcium 8.5 mg/dL (8.7-10.3); Carbon Dioxide 36.9 mmol/L (20.0-27.5); Non-African American GFR(CKD) 67.2 (60.0-200.0); Potassium 3.4 mmol/L (3.5-5.5)
[2021-11-14 10:37] LABS: Basophils # (A) 0.01 X 10*3/uL (0.00-0.10); Basophils % (A) 0.2 %; Eosinophils # (A) 0.19 X 10*3/uL (0.04-0.35); Eosinophils % (A) 4.7 %; Immature Grans, Automated 0.2 %; Lymphocytes # (A) 1.04 X 10*3/uL (0.90-5.00); Lymphocytes % (A) 25.6 %; Monocytes # (A) 0.37 X 10*3/uL (0.20-1.00); Monocytes % (A) 9.1 %; Neutrophils # (A) 2.45 X 10*3/uL (1.80-7.70); Neutrophils % (A) 60.2 %
[2021-11-14 10:38] LABS: Macrocytosis (M) 2+
--- NOTE | 2021-11-14 13:10 | PN ---
PROGRESS NOTE DATE OF SERVICE: 11/14/2021 This 86-year-old woman who was admitted with acute hypoxic respiratory failure also had abdominal distention. Abdominal ileus was suspected. The patient also had UTI. Acute abdominal series was requested. ECF rehab is also planned. PHYSICAL EXAMINATION: Pulse 66, blood pressure 111/51, respiration 20, pulse ox 94% on 4 L. HEENT: Conjunctivae normal. NECK: No jugular venous distention. CARDIOVASCULAR: S1, S2 muffled. RESPIRATION: Breath sounds diminished at the bases. A few scattered rhonchi. ABDOMEN: Soft, obese. LEGS: No edema. No swelling. LABS: Reviewed. ASSESSMENT: 1. Acute hypoxic hypercarbic respiratory failure. 2. Acute hypothyroidism. 3. Abdominal distention, abdominal ileus. 4. Acute urinary tract infection, present on admission. 5. Hematuria. 6. Severe vitamin B12 deficiency. 7. Pancytopenia. 8. Multiple complex medical issues. 9. Escherichia coli urinary tract infection. RECOMMENDATIONS AND DISCUSSION: I recommend to continue current medications, continue with the monitoring, symptomatic treatment. Continue the current antibiotics. Infectious Disease Acute abdominal series. Closely follow with Surgery. Prognosis guarded. Once the patient is stabilized, ECF rehab. Further recommendations to follow. MMODL / IJN: [id number] / [place]
[2021-11-14 15:07] VITALS: BMI 46.5
--- NOTE | 2021-11-14 15:56 | XR ---
EXAMINATION TYPE: XR abdomen acute w cxr DATE OF EXAM: 11/14/2021 COMPARISON: NONE HISTORY: Dominant distention TECHNIQUE: Supine, upright, and left side down lateral decubitus views of the abdomen are obtained. FINDINGS: Frontal view of the chest demonstrates cardiomegaly with a large area of right perihilar an d lower lobe consolidation. Also is left perihilar consolidation. Limited inspiration. No sizable pne umothorax. Patient is rotated with arthropathy of the shoulders. Atherosclerotic change aorta. There is a stimulator leads overlying the thoracic spine. Bowel gas pattern is nonspecific with exten sive retained fecal debris in the right colon. There are dilated bowel loops particularly in the mida bdomen with marked dilation measuring approximately 14 cm. Correlate for bowel obstruction. CT scan recommended. IMPRESSION: 1. Cardiomegaly and bilateral areas of consolidation correlate for pneumonia otherwise consider CHF. 2. There is marked bowel dilation including the stomach and portions of the large bowel with retained fecal debris throughout the colon. Appears to be a dilated bowel loop which could represent: Measuri ng 14 cm. Correlate for bowel obstruction or megacolon. CT scan recommended.
[2021-11-14] MEDS: DULoxetine HCL 20 MG CAPSULE.DR PO SCH (21:14)
[2021-11-14] MEDS: ATORVASTATIN 40 MG TAB PO SCH (21:14)
--- NOTE | 2021-11-14 23:29 | P.PN ---
Subjective Progress Note Date: 11/14/21 Principal diagnosis: Catheter Associated urinary tract infection Patient is 86-year-old female presents to the hospital with multiple complaints and has been treated for multiple condition patient did have a Ramos catheter during this admission and cultures have been positive for E. coli concerning for catheter associated UTI. On today's evaluation that is 11/14/2021, the patient denies having any fever or any chills, breathing slightly comfortably no chest pain or any worsening cough no abdominal pain no diarrhea Objective - Vital Signs Vital signs: Vital Signs Temp 98.7 F 11/14/21 12:40 Pulse 61 11/14/21 12:40 Resp 18 11/14/21 12:40 BP 112/55 11/14/21 12:40 Pulse Ox 96 11/14/21 12:40 Intake & Output 11/13/21 11/14/21 11/14/21 18:59 06:59 18:59 Intake Total 1160 120 200 Output Total 100 1300 Balance 1060 -1180 200 Weight 115.5 kg Intake: IV 120 0.9 120 Intake, IV Titration 50 Amount cefTRIAXone 2 gm In 50 Sodium Chloride 0.9% 50 ml @ 100 mls/hr IVPB Q24H [facility] Rx#:[id number] Oral 1110 200 Output: Urine 100 1300 Other: Voiding Method Indwelling Catheter Indwelling Catheter Indwelling Catheter - Exam GENERAL DESCRIPTION: An elderly female lying in bed in no distress RESPIRATORY SYSTEM: Unlabored breathing , decreased breath sounds at bases HEART: S1 S2 regular rate and rhythm , ABDOMEN: Soft , no tenderness EXTREMITIES: One plus edema feet - Labs CBC & Chem 7: 11/14/21 04:47 11/14/21 04:47 Labs: Abnormal Lab Results - Last 24 Hours (Table) 11/14/21 11/14/21 Range/Units 04:47 04:47 WBC 4.07 L (4.50-10.00) X 10*3/uL RBC 3.28 L (4.10-5.20) X 10*6/uL Hgb 10.2 L (12.0-15.0) g/dL Hct 35.5 L (37.2-46.3) % MCV 108.2 H (80.0-97.0) fL MCHC 28.7 L (32.0-37.0) g/dL RDW 15.1 H (11.5-14.5) % MPV 12.3 H (9.5-12.2) fL Potassium 3.4 L (3.5-5.5) mmol/L Carbon Dioxide 36.9 H (20.0-27.5) mmol/L Anion Gap 6.10 L (10.00-18.00) mmol/L Calcium 8.5 L (8.7-10.3) mg/dL Microbiology - Last 24 Hours (Table) 11/12/21 15:30 Urine Culture - Final Urine,Voided 11/11/21 15:00 Urine Culture - Final Urine,Voided Escherichia coli Assessment and Plan (1) UTI (urinary tract infection) Current Visit: Yes Status: Acute Code(s): N39.0 - URINARY TRACT INFECTION, SITE NOT SPECIFIED SNOMED Code(s): 84524363 Plan: 1patient with multiple positive UA and cultures predominantly growing E. coli in this patient did have a Ramos catheter during this hospital admission with a question of possible Ramos colonization versus mild cystitis clinical not behaving as a deep infection in this patient with no fever or elevated white count. 2recommend to discontinue this Ramos catheter decrease risk of further UTI and obtain a UA after discontinuation of the Ramos, 3patient to continue with Rocephin for short course Time with Patient: Less than 30
[2021-11-15] MEDS: LEVOTHYROXINE 75 MCG TAB PO SCH (06:02)
[2021-11-15] MEDS: PREGABALIN 75 MG CAP PO SCH ×3 (06:02→21:31)
[2021-11-15] MEDS: ALBUTEROL NEBULIZED 2.5 MG/3 ML INHALATION PRN (07:45)
[2021-11-15] MEDS: SYMBICORT 160-4.5 MCG INHALER INHALATION SCH ×2 (07:45→20:19)
[2021-11-15] MEDS: FUROSEMIDE 40 MG TAB PO SCH ×2 (08:22→15:46)
[2021-11-15] MEDS: bisacodyL 10 MG SUPP RECTAL SCH (08:22)
[2021-11-15] MEDS: CYANOCOBALAMIN 500 MCG TAB PO SCH (08:22)
[2021-11-15] MEDS: METOPROLOL SUCCINATE (ER) 25 MG TAB.ER.24H PO SCH (08:22)
[2021-11-15] MEDS: FAMOTIDINE 20 MG TAB PO SCH (08:22)
[2021-11-15] MEDS: APIXABAN 2.5 MG TABLET PO SCH ×2 (08:22→21:31)
[2021-11-15] MEDS: acetaZOLAMIDE 250 MG TAB PO SCH (08:23)
[2021-11-15] MEDS: LACTULOSE 20 GM/30 ML CUP PO SCH ×4 (09:26→21:39)
[2021-11-15] MEDS: CLOBETASOL PROP 0.05% CR 15GM TOPICAL SCH ×2 (09:26→21:38)
[2021-11-15] MEDS: MAGNESIUM HYDROXIDE 2,400 MG/10 ML CUP PO SCH (09:27)
[2021-11-15] MEDS ORDERED: IPRATROPIUM-ALBUTEROL 3 ML NEB INHALATION PRN (10:07)
[2021-11-15] MEDS: IOPAMIDOL CONTRAST (ORAL USE) VIAL PO PRN ×2 (11:09→11:55)
[2021-11-15] MEDS: IPRATROPIUM-ALBUTEROL 3 ML NEB INHALATION SCH ×3 (11:34→20:19)
--- NOTE | 2021-11-15 12:22 | PN ---
PROGRESS NOTE DATE OF SERVICE: 11/15/2021 This 86-year-old woman who was admitted after acute hypoxic hypercarbic respiratory failure also had persistent abdominal distention. The plain x-ray abdomen showed diffuse dilated loops of bowel, possibly both large and small. CT scan has been advised. A chest x-ray also showed some possible evolving right middle lobe pneumonia, possibly aspiration or hospital-acquired in nature. Past medical history reviewed. REVIEW OF SYSTEMS: CARDIOVASCULAR SYSTEM: No angina. RESPIRATION: As mentioned earlier. GI: As mentioned earlier. : No dysuria, retention. MEDICATIONS: Current medications are reviewed and include Diamox, Ventolin. Doses and other medications are reviewed. PHYSICAL EXAMINATION: Pulse is 62, blood pressure is 114/61, respiration 22. HEENT: Conjunctivae normal. NECK: No jugular venous distention. CARDIOVASCULAR: S1, S2 muffled. RESPIRATION: Breath sounds diminished at the bases. A few scattered rhonchi. ABDOMEN: Soft. Diffuse distention present. Non-tender. No guarding. No rigidity. Bowel sounds diminished. NERVOUS SYSTEM: Diffusely weak. LABS: Reviewed. Hemoglobin 10.2. Other labs are reviewed. ASSESSMENT: 1. Acute hypoxic hypercarbic respiratory failure. 2. Possible right middle lobe pneumonia evolving, possibly aspiration or hospital- acquired. 3. Abdominal distention, ileus, persistent. 4. Hypothyroidism. 5. Acute urinary tract infection, present on admission. 6. Hematuria. 7. Severe vitamin B12 deficiency. 8. Pancytopenia. 9. Multiple complex medical issues. RECOMMENDATIONS AND DISCUSSION: I recommend to continue current medications, continue with the monitoring, symptomatic treatment. Otherwise at this time I recommend continuing with lactulose. Surgical evaluation. Pulmonary evaluation. Discussed with Infectious Disease, who recommended Zosyn. Will continue to monitor. I would also obtain a set of cultures. Prognosis guarded. Further recommendations to follow. MMODL / IJN: [id number] /
[2021-11-15] MEDS: PIPERACILLIN-TAZOBACTAM 3.375 GM in SODIUM CHLORIDE 0.9% 100 ML IVPB SCH ×2 (13:37→21:31)
--- NOTE | 2021-11-15 13:48 | CT ---
EXAMINATION TYPE: CT abdomen pelvis wo con DATE OF EXAM: 11/15/2021 COMPARISON: CT of 11/04/2021, plain film 11/14/2021 HISTORY: Possible bowel obstruction. CT DLP: 2133.7 mGycm Automated exposure control for dose reduction was used. TECHNIQUE: Helical acquisition of images from the lung bases through the pelvis. FINDINGS: The heart is enlarged. There is likely mitral annular calcification, coronary artery ossifi cation. Postprocedural changes are again noted at the level of the spine, there is a generator in the left gluteal region LUNG BASES: No significant change is appreciated, parenchymal bands are present, no pleural pericardi al effusion. AORTA: No significant abnormality is appreciataed. LIVER/GB: No significant abnormality is appreciated. PANCREAS: No significant abnormality is seen. SPLEEN: No significant abnormality is seen. ADRENALS: No significant abnormality is seen. KIDNEYS: No significant abnormality is seen. REPRODUCTIVE ORGANS: No significant abnormality is seen. URINARY BLADDER: Ramos catheter in place. BOWEL: Gas distention of the bowel, retained stool is again seen and is somewhat improved as compare d to prior exam, there is contrast within the colon extending to the level of the sigmoid. Anterior a bdominal wall hernia is again noted containing bowel loops FREE AIR: No Free Air is visible. ASCITES: None visible. PELVIC ADENOPATHY: None visualized. RETROPERITONEAL ADENOPATHY: No Retroperitoneal Adenopathy visible. OSSEOUS STRUCTURES: No significant change is seen. IMPRESSION: IMPROVEMENT COMPARED TO PRIOR CT WITHIN THE BOWEL DISTENTION. Findings could represent partial or int ermittent bowel obstruction
--- NOTE | 2021-11-15 14:16 | P.PN ---
Subjective Progress Note Date: 11/15/21 Principal diagnosis: Colonic ileus We were asked to see the patient again regarding her abdominal distention. An x-ray was obtained which showed increased diameter to the bowel loops. A CAT scan was then obtained which showed improvement since the previous CAT scan showing ileus. Patient did have a large volume of flatus after the abdominal x- ray was performed this morning prior to the CAT scan study. Complains of mild bloating. Only mild abdominal discomfort. Appetite remains poor and the patient's activity level remains minimal. Objective - Vital Signs Vital signs: Vital Signs Temp 97.6 F 11/15/21 12:30 Pulse 58 L 11/15/21 12:30 Resp 19 11/15/21 12:30 BP 125/70 11/15/21 12:30 Pulse Ox 96 11/15/21 12:30 Intake & Output 11/14/21 11/15/21 11/15/21 18:59 06:59 18:59 Intake Total 250 340 Balance 250 340 Weight 115.5 kg 113 kg Intake: IV 100 0.9 100 Intake, IV Titration 50 Amount cefTRIAXone 2 gm In 50 Sodium Chloride 0.9% 50 ml @ 100 mls/hr IVPB Q24H [facility] Rx#:[id number] Oral 200 240 Other: Voiding Method Indwelling Catheter Indwelling Catheter # Voids 1 - Exam Abdomen: Soft, mild distention, mild tympany, nontender - Labs CBC & Chem 7: 11/14/21 04:47 11/14/21 04:47 Assessment and Plan (1) Adynamic ileus Narrative/Plan: 86-year-old female with colonic ileus. Patient with poor activity overall and chronic back issues. Continue bowel stimulants and increase activity as tolerated. I am comfortable with continuing diet for now. Will follow. Current Visit: Yes Status: Acute Code(s): K56.0 - PARALYTIC ILEUS SNOMED Code(s): 54904209
[2021-11-15] MEDS: DULoxetine HCL 20 MG CAPSULE.DR PO SCH (21:31)
[2021-11-15] MEDS: ATORVASTATIN 40 MG TAB PO SCH (21:32)
--- NOTE | 2021-11-15 21:36 | P.PN ---
Subjective Progress Note Date: 11/15/21 Principal diagnosis: Catheter Associated urinary tract infection Patient is 86-year-old female presents to the hospital with multiple complaints and has been treated for multiple condition patient did have a Ramos catheter during this admission and cultures have been positive for E. coli concerning for catheter associated UTI. On today's evaluation that is 11/15/2021, the patient remains to be afebrile, the patient is breathing comfortably on nasal cannula oxygen, the patient denies chest pain minimal cough , abdominal pain has decreased in intensity did have a bowel movement no nausea vomiting Objective - Vital Signs Vital signs: Vital Signs Temp 97.6 F 11/15/21 12:30 Pulse 58 L 11/15/21 12:30 Resp 19 11/15/21 12:30 BP 125/70 11/15/21 12:30 Pulse Ox 96 11/15/21 12:30 Intake & Output 11/14/21 11/15/21 11/15/21 18:59 06:59 18:59 Intake Total 250 340 Balance 250 340 Weight 115.5 kg 113 kg Intake: IV 100 0.9 100 Intake, IV Titration 50 Amount cefTRIAXone 2 gm In 50 Sodium Chloride 0.9% 50 ml @ 100 mls/hr IVPB Q24H [facility] Rx#:[id number] Oral 200 240 Other: Voiding Method Indwelling Catheter Indwelling Catheter # Voids 1 - Exam GENERAL DESCRIPTION: An elderly female lying in bed in no distress RESPIRATORY SYSTEM: Unlabored breathing , decreased breath sounds at bases HEART: S1 S2 regular rate and rhythm , ABDOMEN: Soft , no tenderness EXTREMITIES: One plus edema feet - Labs CBC & Chem 7: 11/14/21 04:47 11/14/21 04:47 Assessment and Plan (1) UTI (urinary tract infection) Current Visit: Yes Status: Acute Code(s): N39.0 - URINARY TRACT INFECTION, SITE NOT SPECIFIED SNOMED Code(s): 09126400 Plan: 1patient with multiple positive UA and cultures predominantly growing E. coli in this patient did have a Ramos catheter during this hospital admission with a question of possible Ramos colonization versus mild cystitis clinical not behaving as a deep infection in this patient with no fever or elevated white count. 2recommend to discontinue this Ramos catheter decrease risk of further UTI and obtain a UA after discontinuation of the Ramos, 3patient with abnormal x-ray concerning for pneumonia however clinically not behaving as such did have ileus with a repeat CT still show some improvement antibiotic has been adjusted to Zosyn to continue and monitor clinical course closely Time with Patient: Less than 30
[2021-11-16] MEDS: LEVOTHYROXINE 75 MCG TAB PO SCH (05:53)
[2021-11-16] MEDS: PREGABALIN 75 MG CAP PO SCH ×3 (05:53→22:31)
[2021-11-16] MEDS: PIPERACILLIN-TAZOBACTAM 3.375 GM in SODIUM CHLORIDE 0.9% 100 ML IVPB SCH ×3 (05:53→20:19)
[2021-11-16] MEDS: SYMBICORT 160-4.5 MCG INHALER INHALATION SCH ×2 (07:29→20:28)
[2021-11-16] MEDS: IPRATROPIUM-ALBUTEROL 3 ML NEB INHALATION SCH ×4 (07:29→20:28)
[2021-11-16] MEDS: LACTULOSE 20 GM/30 ML CUP PO SCH ×4 (07:59→22:32)
[2021-11-16] MEDS: APIXABAN 2.5 MG TABLET PO SCH ×2 (07:59→20:21)
[2021-11-16] MEDS: CYANOCOBALAMIN 500 MCG TAB PO SCH (07:59)
[2021-11-16] MEDS: acetaZOLAMIDE 250 MG TAB PO SCH (07:59)
[2021-11-16] MEDS: MAGNESIUM HYDROXIDE 2,400 MG/10 ML CUP PO SCH (07:59)
[2021-11-16] MEDS: METOPROLOL SUCCINATE (ER) 25 MG TAB.ER.24H PO SCH (08:00)
[2021-11-16] MEDS: FUROSEMIDE 40 MG TAB PO SCH ×2 (08:00→15:05)
[2021-11-16] MEDS: PANTOPRAZOLE 40 MG TABLET PO SCH (08:00)
[2021-11-16] MEDS: CLOBETASOL PROP 0.05% CR 15GM TOPICAL SCH ×2 (08:01→20:21)
[2021-11-16] MEDS: bisacodyL 10 MG SUPP RECTAL SCH (08:38)
--- NOTE | 2021-11-16 10:28 | P.PN ---
Progress Note - Text Progress Note Date: 11/16/21 Patient's resting comfortably. She is tolerating her diet. She had a large, today. On exam vital signs are stable. Abdomen soft. Resolved ileus. Patient will continue receive supportive care.
[2021-11-16 11:40] LABS: Basophils # (A) 0.03 X 10*3/uL (0.00-0.10); Basophils % (A) 0.7 %; Eosinophils # (A) 0.18 X 10*3/uL (0.04-0.35); Eosinophils % (A) 4.4 %; HCT 33.2 % (37.2-46.3); HGB 9.7 g/dL (12.0-15.0); Immature Grans, Automated 0 %; Lymphocytes # (A) 0.87 X 10*3/uL (0.90-5.00); Lymphocytes % (A) 21.2 %; MCH 30.8 pg (27.0-32.0); MCHC 29.2 g/dL (32.0-37.0); MCV 105.4 fL (80.0-97.0); Mean Platelet Volume 11.6 fL (9.5-12.2); Monocytes # (A) 0.36 X 10*3/uL (0.20-1.00); Monocytes % (A) 8.8 %; NRBC Per 100 WBC 0 /100 WBCS (0.0-0.0); Neutrophils # (A) 2.67 X 10*3/uL (1.80-7.70); Neutrophils % (A) 64.9 %; Platelet Count 162 X 10*3/uL (140-440); RBC 3.15 X 10*6/uL (4.10-5.20); RDW 15.1 % (11.5-14.5); WBC 4.11 X 10*3/uL (4.50-10.00)
[2021-11-16 11:54] LABS: ALT 9 U/L (8-44); AST 18 U/L (13-35); African American GFR (CKD) 67.6 (60.0-200.0); Albumin 3.8 g/dL (3.8-4.9); Alkaline Phosphatase 69 U/L (41-126); BUN/Creat Ratio 11.78 Ratio (12.00-20.00); Blood Urea Nitrogen 10.6 mg/dL (9.0-27.0); Calcium 8.8 mg/dL (8.7-10.3); Carbon Dioxide 34.3 mmol/L (20.0-27.5); Chloride 100 mmol/L (96-109); Glucose 83 mg/dL (70-110); Non-African American GFR(CKD) 58.3 (60.0-200.0); Potassium 3.1 mmol/L (3.5-5.5); Sodium 145 mmol/L (135-145); Total Bilirubin <0.15 mg/dL (0.30-1.20); Total Protein 5.8 g/dL (6.2-8.2)
[2021-11-16] MEDS: POTASSIUM CHLORIDE ER 20 MEQ TAB.ER PO SCH ×4 (12:45→20:21)
--- NOTE | 2021-11-16 17:57 | PN ---
PROGRESS NOTE DATE OF SERVICE: 11/16/2021 This 86-year-old woman who was admitted with multiple medical issues had abdominal distention, possibly chronic ileus at this time. The repeat CT scan apparently is showing some improvement with persistent of the anterior abdominal hernia. The patient also had right-sided pneumonia, possibly aspiration. IV Zosyn has been initiated. Past medical history reviewed. REVIEW OF SYSTEMS: CARDIOVASCULAR SYSTEM: No angina. RESPIRATION: As mentioned earlier. GI: As mentioned earlier. : No dysuria. NERVOUS SYSTEM: Diffusely weak. CURRENT MEDICATIONS: Reviewed. They Diamox, [place], DuoNeb. Doses and other medications are reviewed. PHYSICAL EXAMINATION: Pulse is 58, blood pressure 103/61, respiration 12. HEENT: Conjunctivae normal. CARDIOVASCULAR: S1, S2 muffled. RESPIRATION: A few scattered rhonchi and crackles. ABDOMEN: Soft. Diffuse distention. Nontender. No mass palpable. Bowel sounds diminished. LEGS: No edema. No swelling. NERVOUS SYSTEM: No focal deficit. LABS: Reviewed. WBC n_, hemoglobin 9.7. ASSESSMENT: 1. Acute hypoxic hypercarbic respiratory failure. 2. Right middle lobe pneumonia, possibly aspiration. 3. Abdominal distention, colonic ileus, persistent. 4. Anterior abdominal hernia. 5. Hypothyroidism. 6. Acute urinary tract infection with Escherichia coli. 7. Hematuria. 8. Severe vitamin B12 deficiency. 9. Pancytopenia. 10.Multiple complex medical issues. RECOMMENDATIONS AND DISCUSSION: I recommend to continue current medications, continue with the monitoring, symptomatic treatment. Continue with IV antibiotics. Continue with bowel regimen. Closely follow with Surgery. Prognosis guarded. Please note the persistence of the anterior abdominal hernia. Repeat labs will be ordered. Potassium supplementation. See orders for further details. Prognosis guarded. Possible ECF once the patient is stabilized. MMODL / IJN: [id number] / LELIA
[2021-11-16] MEDS: ATORVASTATIN 40 MG TAB PO SCH (20:21)
[2021-11-16] MEDS: DULoxetine HCL 20 MG CAPSULE.DR PO SCH (20:21)
--- NOTE | 2021-11-16 23:39 | P.PN ---
Subjective Progress Note Date: 11/16/21 Principal diagnosis: Catheter Associated urinary tract infection Patient is 86-year-old female presents to the hospital with multiple complaints and has been treated for multiple condition patient did have a Ramos catheter during this admission and cultures have been positive for E. coli concerning for catheter associated UTI. On today's evaluation that is 11/16/2021, the patient denies any fever or any chills, the patient is breathing comfortably on nasal cannula oxygen, the patient denies chest pain , the patient did have minimal dry cough , abdominal pain has decreased in intensity , denies any nausea or vomiting Objective - Vital Signs Vital signs: Vital Signs Temp 98.0 F 11/16/21 05:00 Pulse 58 L 11/16/21 11:43 Resp 16 11/16/21 05:00 BP 116/67 11/16/21 05:00 Pulse Ox 94 L 11/16/21 07:32 Intake & Output 11/15/21 11/16/21 11/16/21 18:59 06:59 18:59 Intake Total 1550 590 Output Total 900 1700 Balance 650 -1110 Weight 113.1 kg Intake: Intake, IV Titration 150 Amount Piperacillin-Tazobactam 3 100 .375 gm In Sodium Chloride 0.9% 100 ml @ 25 mls/hr IVPB Q8H [facility] Rx#: [id number] cefTRIAXone 2 gm In 50 Sodium Chloride 0.9% 50 ml @ 100 mls/hr IVPB Q[facility]H [facility] Rx#:[id number] Oral 1400 590 Output: Urine 900 1700 Uretheral (Ramos) 1700 Other: Voiding Method Indwelling Catheter Indwelling Catheter Indwelling Catheter # Voids 1 # Bowel Movements 2 - Exam GENERAL DESCRIPTION: An elderly female lying in bed in no distress RESPIRATORY SYSTEM: Unlabored breathing , decreased breath sounds at bases HEART: S1 S2 regular rate and rhythm , ABDOMEN: Soft , no tenderness EXTREMITIES: One plus edema feet - Labs CBC & Chem 7: 11/16/21 07:23 11/16/21 20:59 Labs: Abnormal Lab Results - Last 24 Hours (Table) 11/16/21 11/16/21 Range/Units 07: 07:23 WBC 4.11 L (4.50-10.00) X 10*3/uL RBC 3.15 L (4.10-5.20) X 10*6/uL Hgb 9.7 L (12.0-15.0) g/dL Hct 33.2 L (37.2-46.3) % MCV 105.4 H (80.0-97.0) fL MCHC 29.2 L (32.0-37.0) g/dL RDW 15.1 H (11.5-14.5) % Lymphocytes # 0.87 L (0.90-5.00) X 10*3/uL Potassium 3.1 L (3.5-5.5) mmol/L Carbon Dioxide 34.3 H (20.0-27.5) mmol/L Est GFR (CKD-EPI)NonAf 58.3 L (60.0-200.0) BUN/Creatinine Ratio 11.78 L (12.00-20.00) Ratio Total Bilirubin <0.15 L (0.30-1.20) mg/dL C-Reactive Protein 1.10 H (0.00-0.80) mg/dL Total Protein 5.8 L (6.2-8.2) g/dL Assessment and Plan (1) UTI (urinary tract infection) Current Visit: Yes Status: Acute Code(s): N39.0 - URINARY TRACT INFECTION, SITE NOT SPECIFIED SNOMED Code(s): 17599554 Plan: 1patient with multiple positive UA and cultures predominantly growing E. coli in this patient did have a Ramos catheter during this hospital admission with a question of possible Ramos colonization versus mild cystitis clinical not behaving as a deep infection in this patient with no fever or elevated white count. 2recommend to discontinue this Ramos catheter decrease risk of further UTI and obtain a UA after discontinuation of the Ramos, 3patient with abnormal x-ray concerning for pneumonia however clinically not behaving as such did have ileus with a repeat CT still show some improvement, patient is currently covered with Zosyn and continue and continue supportive care Time with Patient: Less than 30
[2021-11-17] MEDS: PIPERACILLIN-TAZOBACTAM 3.375 GM in SODIUM CHLORIDE 0.9% 100 ML IVPB SCH ×3 (04:03→21:34)
[2021-11-17] MEDS: LEVOTHYROXINE 75 MCG TAB PO SCH (05:50)
[2021-11-17] MEDS: PREGABALIN 75 MG CAP PO SCH ×3 (05:50→21:35)
[2021-11-17] MEDS: IPRATROPIUM-ALBUTEROL 3 ML NEB INHALATION SCH ×4 (07:21→18:51)
[2021-11-17] MEDS: SYMBICORT 160-4.5 MCG INHALER INHALATION SCH ×2 (07:21→18:52)
[2021-11-17] MEDS: MAGNESIUM HYDROXIDE 2,400 MG/10 ML CUP PO SCH (07:50)
[2021-11-17] MEDS: LACTULOSE 20 GM/30 ML CUP PO SCH ×4 (07:50→21:35)
[2021-11-17] MEDS: APIXABAN 2.5 MG TABLET PO SCH ×2 (07:51→21:35)
[2021-11-17] MEDS: CYANOCOBALAMIN 500 MCG TAB PO SCH (07:51)
[2021-11-17] MEDS: PANTOPRAZOLE 40 MG TABLET PO SCH (07:52)
[2021-11-17] MEDS: acetaZOLAMIDE 250 MG TAB PO SCH (07:52)
[2021-11-17] MEDS: bisacodyL 10 MG SUPP RECTAL SCH (07:52)
[2021-11-17] MEDS: FUROSEMIDE 40 MG TAB PO SCH ×2 (07:52→17:03)
[2021-11-17] MEDS: METOPROLOL SUCCINATE (ER) 25 MG TAB.ER.24H PO SCH (07:52)
[2021-11-17] MEDS: CLOBETASOL PROP 0.05% CR 15GM TOPICAL SCH ×3 (09:00→21:36)
[2021-11-17 09:08] LABS: Basophils # (A) 0.02 X 10*3/uL (0.00-0.10); Basophils % (A) 0.5 %; Eosinophils # (A) 0.18 X 10*3/uL (0.04-0.35); Eosinophils % (A) 4.5 %; HGB 9.9 g/dL (12.0-15.0); Immature Grans, Automated 0.3 %; Lymphocytes # (A) 0.85 X 10*3/uL (0.90-5.00); Lymphocytes % (A) 21.4 %; MCH 30.9 pg (27.0-32.0); MCHC 29.1 g/dL (32.0-37.0); MCV 106.3 fL (80.0-97.0); Mean Platelet Volume 11.8 fL (9.5-12.2); Monocytes # (A) 0.35 X 10*3/uL (0.20-1.00); Monocytes % (A) 8.8 %; NRBC Per 100 WBC 0 /100 WBCS (0.0-0.0); Neutrophils # (A) 2.56 X 10*3/uL (1.80-7.70); Neutrophils % (A) 64.5 %; Platelet Count 162 X 10*3/uL (140-440); RDW 15.2 % (11.5-14.5); WBC 3.97 X 10*3/uL (4.50-10.00)
[2021-11-17 09:21] LABS: African American GFR (CKD) 67.6 (60.0-200.0); Anion Gap 8.6 mmol/L (10.00-18.00); BUN/Creat Ratio 11.56 Ratio (12.00-20.00); Blood Urea Nitrogen 10.4 mg/dL (9.0-27.0); Calcium 8.9 mg/dL (8.7-10.3); Carbon Dioxide 36.4 mmol/L (20.0-27.5); Non-African American GFR(CKD) 58.3 (60.0-200.0); Potassium 3.6 mmol/L (3.5-5.5)
--- NOTE | 2021-11-17 11:52 | P.PN ---
Progress Note - Text Progress Note Date: 11/17/21 Patient's resting comfortably in bed. Abdomen soft. Patient is tolerating diet. No surgical intervention is planned.
--- NOTE | 2021-11-17 19:27 | PN ---
PROGRESS NOTE DATE OF SERVICE: 11/17/2021 This 86-year-old woman who was admitted with multiple medical problems also had right- sided pneumonia. Patient also had abdominal ileus. Conservative line of management is being done. CT scan of the abdomen showed some improvement. PHYSICAL EXAMINATION: Pulse is 86, blood pressure 118/63, respirations 16. HEENT: Conjunctivae normal. NECK: No jugular venous distention. CARDIOVASCULAR: S1, S2 muffled. RESPIRATION: Breath sounds diminished at the bases. A few scattered rhonchi. ABDOMEN: Soft. Mild diffuse distention. LEGS: No edema. No swelling. NERVOUS SYSTEM: No focal deficit. LABS: Urine culture E coli. ASSESSMENT: 1. Acute hypoxic hypercarbic respiratory failure. 2. Right middle lobe pneumonia, possibly aspiration. 3. Abdomen distention, chronic ileus, persistent. 4. Anterior abdominal wall hernia. 5. Hypothyroidism. 6. Acute urinary tract infection with Escherichia coli. 7. Hematuria. 8. Severe vitamin B12 deficiency. 9. Pancytopenia. 10.Multiple complex medical issues. RECOMMENDATIONS AND DISCUSSION: I recommend to continue current medications, continue with the monitoring, symptomatic treatment. Continue with antibiotics. Closely follow with Surgery. Infectious disease and PT/OT evaluation; possible ECF rehab. Further recommendations to follow. MMODL / IJN: [id number] / [facility]
[2021-11-17] MEDS: ATORVASTATIN 40 MG TAB PO SCH (21:35)
[2021-11-17] MEDS: DULoxetine HCL 20 MG CAPSULE.DR PO SCH (21:36)
--- NOTE | 2021-11-17 23:47 | P.PN ---
Subjective Progress Note Date: 11/17/21 Principal diagnosis: Catheter Associated urinary tract infection Patient is 86-year-old female presents to the hospital with multiple complaints and has been treated for multiple condition patient did have a Ramos catheter during this admission and cultures have been positive for E. coli concerning for catheter associated UTI. On today's evaluation that is 11/17/2021, the patient remains to be afebrile, the patient is breathing comfortably on nasal cannula oxygen, the patient denies chest pain , the patient did have occasional cough but not bringing up any sputum, comparing of some gastric upset but no vomiting or diarrhea Objective - Vital Signs Vital signs: Vital Signs Temp 98.1 F 11/17/21 05:00 Pulse 74 11/17/21 11:37 Resp 16 11/17/21 05:00 BP 106/57 11/17/21 05:00 Pulse Ox 96 11/17/21 07:24 Intake & Output 11/16/21 11/17/21 11/17/21 18:59 06:59 18:59 Intake Total 720 590 360 Output Total 500 Balance 220 590 360 Weight 113.2 kg Intake: Oral 720 590 360 Output: Urine 500 Other: Voiding Method Indwelling Catheter Indwelling Catheter Indwelling Catheter # Bowel Movements 1 - Exam GENERAL DESCRIPTION: An elderly female lying in bed in no distress RESPIRATORY SYSTEM: Unlabored breathing , decreased breath sounds at bases HEART: S1 S2 regular rate and rhythm , ABDOMEN: Soft , no tenderness EXTREMITIES: One plus edema feet - Labs CBC & Chem 7: 11/17/21 06:11 11/17/21 06:11 Labs: Abnormal Lab Results - Last 24 Hours (Table) 11/16/21 11/17/21 11/17/21 Range/Units 17:04 06:11 06:11 WBC 3.97 L (4.50-10.00) X 10*3/uL RBC 3.20 L (4.10-5.20) X 10*6/uL Hgb 9.9 L (12.0-15.0) g/dL Hct 34.0 L (37.2-46.3) % MCV 106.3 H (80.0-97.0) fL MCHC 29.1 L (32.0-37.0) g/dL RDW 15.2 H (11.5-14.5) % Lymphocytes # 0.85 L (0.90-5.00) X 10*3/uL Sodium 147 H (135-145) mmol/L Potassium 3.1 L (3.5-5.1) mmol/L Carbon Dioxide 36.4 H (20.0-27.5) mmol/L Anion Gap 8.60 L (10.00-18.00) mmol/L Est GFR (CKD-EPI)NonAf 58.3 L (60.0-200.0) BUN/Creatinine Ratio 11.56 L (12.00-20.00) Ratio Microbiology - Last 24 Hours (Table) 11/15/21 12:07 Blood Culture - Preliminary Blood No Growth after 24 hours Assessment and Plan (1) UTI (urinary tract infection) Current Visit: Yes Status: Acute Code(s): N39.0 - URINARY TRACT INFECTION, SITE NOT SPECIFIED SNOMED Code(s): 22825615 Plan: 1patient with multiple positive UA and cultures predominantly growing E. coli in this patient did have a Ramos catheter during this hospital admission with a question of possible Ramos colonization versus mild cystitis clinical not beh aving as a deep infection in this patient with no fever or elevated white count. 2recommend to discontinue this Ramos catheter decrease risk of further UTI and obtain a UA after discontinuation of the Ramos, 3patient with abnormal x-ray concerning for pneumonia however clinically not behaving as such did have ileus with a repeat CT still show some improvement, patient may continue with Zosyn and will transition to oral antibiotic on discharge Time with Patient: Less than 30
[2021-11-18] MEDS: PREGABALIN 75 MG CAP PO SCH ×3 (05:20→20:57)
[2021-11-18] MEDS: LEVOTHYROXINE 75 MCG TAB PO SCH (05:20)
[2021-11-18] MEDS: PIPERACILLIN-TAZOBACTAM 3.375 GM in SODIUM CHLORIDE 0.9% 100 ML IVPB SCH ×3 (05:21→20:56)
[2021-11-18 08:59] LABS: Basophils % (A) 0 %; Eosinophils # (A) 0.2 k/uL (0-0.7); Eosinophils % (A) 5 %; HCT 32.8 % (34.0-46.0); HGB 10.1 gm/dL (11.4-16.0); Hypochromasia Marked; Lymphocytes % (A) 27 %; MCH 32.6 pg (25.0-35.0); MCHC 30.9 g/dL (31.0-37.0); MCV 105.7 fL (80.0-100.0); Macrocytosis Moderate; Mean Platelet Volume 9.3; Monocytes # (A) 0.2 k/uL (0-1.0); Monocytes % (A) 6 %; Neutrophils # (A) 2.2 k/uL (1.3-7.7); Neutrophils % (A) 61 %; Platelet Count 136 k/uL (150-450); RDW 14.7 % (11.5-15.5); WBC 3.5 k/uL (3.8-10.6)
[2021-11-18] MEDS ORDERED: LACTULOSE 20 GM/30 ML CUP ONE (09:00)
[2021-11-18] MEDS ORDERED: PANTOPRAZOLE 40 MG TABLET PO ONE (09:00)
[2021-11-18] MEDS ORDERED: FUROSEMIDE 40 MG TAB ONE (09:00)
[2021-11-18] MEDS ORDERED: IPRATROPIUM-ALBUTEROL 3 ML NEB ONE (09:00)
[2021-11-18] MEDS ORDERED: MAGNESIUM HYDROXIDE 2,400 MG/10 ML CUP ONE (09:00)
[2021-11-18] MEDS ORDERED: APIXABAN 2.5 MG TABLET ONE (09:00)
[2021-11-18] MEDS ORDERED: acetaZOLAMIDE 250 MG TAB ONE (09:00)
[2021-11-18] MEDS ORDERED: METOPROLOL SUCCINATE (ER) 25 MG TAB.ER.24H PO ONE (09:00)
[2021-11-18] MEDS ORDERED: SYMBICORT 160-4.5 MCG INHALER INHALATION ONE (09:00)
[2021-11-18] MEDS ORDERED: bisacodyL 10 MG SUPP RECTAL ONE (09:00)
[2021-11-18] MEDS ORDERED: CYANOCOBALAMIN 500 MCG TAB ONE (09:00)
[2021-11-18 09:08] LABS: African American GFR (CKD) 53 (>60 ml/min/1.73 sqM); Blood Urea Nitrogen 11 mg/dL (7-17); Calcium 8.7 mg/dL (8.4-10.2); Chloride 96 mmol/L (98-107); Glucose 81 mg/dL (74-99); Non-African American GFR(CKD) 46 (>60 ml/min/1.73 sqM); Sodium 142 mmol/L (137-145)
[2021-11-18 09:17] LABS: Anion Gap 7 mmol/L
[2021-11-18 09:21] LABS: Carbon Dioxide 39 mmol/L (22-30)
--- NOTE | 2021-11-18 11:53 | P.PN ---
Subjective Progress Note Date: 11/18/21 CHIEF COMPLAINT: Abdominal ileus HISTORY OF PRESENT ILLNESS: Patient is lying in bed. Nursing staff reports the patient did have one episode of diarrhea yesterday. They're awaiting insurance authorization for ECF placement. Patient is tolerating about 75% of her diet. She is having flatus. She denies any abdominal pain. Denies any nausea vomiting. Afebrile. WBC is 3.5 hemoglobin 10.1 platelets 136 sodium is 142 potassium 3.0 creatinine 1.11 PHYSICAL EXAM: VITAL SIGNS: Reviewed. GENERAL: Well-developed in no acute distress. HEENT: No sclera icterus. Extraocular movements grossly intact. Moist buccal mucosa. Head is atraumatic, normocephalic. ABDOMEN: soft. Nontender. Mildly distended. NEUROLOGIC: awake and alert. [place] of hearing ASSESSMENT: 1. Colonic ileus 2. Hypokalemia 3. Acute CHF exacerbation followed by cardiology 4. Chronic back pain PLAN: -No surgical intervention planned -Continue supportive care -Continue bowel regimen -Replace potassium Physician Urologist Md note has been reviewed by physician. Signing provider agrees with the documented findings, assessment, and plan of care. I have personally seen and examined the patient, reviewed the THERAPIST'S ASSISTANT /PAs history, exam and MDM and agree with the assessment and plan as written. Based on total visit time, I have performed more than 50% of the visit. As above: Patient says she is less bloated today. No nausea or vomiting. She did have some loose stools yesterday. Abdomen is soft with mild distention noted, nontender. Continue cathartics Objective - Vital Signs Vital signs: Vital Signs Temp 97.5 F L 11/18/21 05:00 Pulse 52 L 11/18/21 05:00 Resp 20 11/18/21 05:00 BP 93/50 11/18/21 05:00 Pulse Ox 94 L 11/18/21 05:00 Intake & Output 11/17/21 11/18/21 11/18/21 18:59 06:59 18:59 Intake Total 1060 Output Total 1600 Balance 1060 -1600 Intake: Intake, IV Titration 100 Amount Piperacillin-Tazobactam 3 100 .375 gm In Sodium Chloride 0.9% 100 ml @ 25 mls/hr IVPB Q8H [facility] Rx#: [id number] Oral 960 Output: Urine 1600 Other: Voiding Method Indwelling Catheter Indwelling Catheter # Voids 500 - Labs CBC & Chem 7: 11/18/21 06:07 11/18/21 06:07 Labs: Abnormal Lab Results - Last 24 Hours (Table) 11/18/21 11/18/21 Range/Units 06:07 06:07 WBC 3.5 L (3.8-10.6) k/uL RBC 3.10 L (3.80-5.40) m/uL Hgb 10.1 L (11.4-16.0) gm/dL Hct 32.8 L (34.0-46.0) % MCV 105.7 H (80.0-100.0) fL MCHC 30.9 L (31.0-37.0) g/dL Plt Count 136 L (150-450) k/uL Potassium 3.0 L (3.5-5.1) mmol/L Chloride 96 L (98-107) mmol/L Carbon Dioxide 39 H (22-30) mmol/L Creatinine 1.11 H (0.52-1.04) mg/dL Microbiology - Last 24 Hours (Table) 11/15/21 12:07 Blood Culture - Preliminary Blood No Growth after 48 hours
[2021-11-18] MEDS: PANTOPRAZOLE 40 MG TABLET PO SCH (12:18)
[2021-11-18] MEDS: bisacodyL 10 MG SUPP RECTAL SCH (12:24)
[2021-11-18] MEDS: APIXABAN 2.5 MG TABLET PO SCH ×2 (12:24→20:56)
[2021-11-18] MEDS: FUROSEMIDE 40 MG TAB PO SCH ×2 (12:24→17:27)
[2021-11-18] MEDS: acetaZOLAMIDE 250 MG TAB PO SCH (12:24)
[2021-11-18] MEDS: CLOBETASOL PROP 0.05% CR 15GM TOPICAL SCH ×2 (12:24→20:57)
[2021-11-18] MEDS: CYANOCOBALAMIN 500 MCG TAB PO SCH (12:24)
[2021-11-18] MEDS: METOPROLOL SUCCINATE (ER) 25 MG TAB.ER.24H PO SCH (12:31)
[2021-11-18] MEDS: LACTULOSE 20 GM/30 ML CUP PO SCH ×5 (12:31→20:56)
[2021-11-18] MEDS: MAGNESIUM HYDROXIDE 2,400 MG/10 ML CUP PO SCH (12:31)
--- NOTE | 2021-11-18 13:18 | P.PN ---
Subjective Progress Note Date: 11/18/21 This is a pleasant 86 years old female with past medical history of Atrial Fib rillation, on Eliquis, heart Failure, CVA/TIA, Hypertension, Pneumonia, Sleep Apnea/CPAP/BIPAP, chronic back pain, ovarian cancer, C-DIFF infection , Depression Presents because of increased confusion, shortness of breath, weakness and inability to ambulate Patient was on BiPAP in bed comfortable, information obtained with the help of the daughter Jodi at bedside As per daughter patient is on 3 L/m of oxygen at home and she is on BiPAP at [facility] since July when she was sick. Her salesforce trainer is Dr. Bearden. 2 days ago patient was tired but, however yesterday she become really sick, it was so bad day for her as per daughter, she was confused, sleeping a lot, could not take her medication, she could not stand up. At baseline she walks about 15-21 feet. Then daughter noticed that she was becoming more hypoxic with oxygen dropped to 59% while on 3 L, she bumped up her oxygen to 4.5 L per minute and saturation improved to 83% as per daughter. So she called EMS for her. Patient is awake and alert, she notes she is in the current hospital in [place], she thought its 05/30/2022. And she is oriented to person as well. She denies any chest pain or dyspnea. She has her insight into her nose. She denies headache or weakness or numbness. No vomiting or diarrhea actually she is constipat she denies urinary symptoms but Doppler reports decreased urine output, She never smoked, she does not drink alcohol. Patient is hemodynamically stable, she is slightly tachypneic and 20 and hypoxic at 91% oxygen saturation on 2 L/m CBC is unremarkable, INR 1.1, arterial blood gas showing slightly low pH 7.34, high pCO2 73 and low pO2 at 60 Sodium 137, carbon dioxide elevated 39, creatinine high at 1.13, compared to baseline of 0.7-0.8 Liver enzymes not elevated, troponin negative and proBNP is low 587. Urine analysis is normal Coronavirus not detected Chest x-ray: Congestive heart failure with patchy atelectasis. Pulmonary navin estion improved compared to last exam CTA from 07/2021: No pulmonary embolism. Bilateral pulmonary patchy infiltrates and atelectasis. 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 Cardiology and pulmonary team consulted. 11/01/2021 Patient is more sleepy today although she awakes to verbal and tactile stimuli and answers some questions but she looks also slow. Most likely this could be related to her hypothyroidism. Her levothyroxine was started today at 37.5 g and increased for tomorrow at 50 g daily. But because she is also on Eliquis we will order CT of the brain to rule out intracranial bleed or acute pathology. She is hemodynamically stable, her oxygen is status improved and currently she is on 4 L/m which is close to her home dose of 3 L/m. Echocardiogram showed ejection fraction of 55-60% with moderate aortic stenosis. She remains on Eliquis 5 mg, IV Lasix 40 mg twice daily. Also we put the patient on a fluid restriction 1500 mL per day. Continue with Symbicort and albuterol when necessary 11/02/2021 Patient is more awake and interactive today. She has better appetite. She denies any specific symptoms. No dyspnea or tachypnea while sitting in bed most of the time. Minimal cough and no chest pain, no GI or urinary symptoms. Chest x-ray showing atelectasis and cardiomegaly. Labs showing mild pancytopenia with WBC 4.1, hemoglobin 10.3 and platelet count 123. She remains on a fluid restriction. She remains on IV Lasix 40 mg twice daily. Extremities on levothyroxine 50 units. We will check thyroid function test and B12 and folate. 11/03/2021 patient mentation is improving however she still lethargic and very weak Patient severely low hypothyroidism case. Levothyroid replacement therapy is a started. A shunt on 75 g daily with recommendation to check thyroid function tests in one month. Also vitamin B12 is deficient less than 150 we going to replace it with IM dose in 3 days and then continue with oral. Since she is on a blood thinner she'll be at risk of hematoma however it is thought that benefit more than risk. She remains on IV Lasix 40 mg 3 times a day. Potassium 2.9 been placed on monitored. Magnesium stable at 2.2. Patient will benefit from ECF for rehab upon discharge 11/04/2021 Patient is seen and evaluated in follow-up this morning having some abdominal discomfort and per nursing staff bowel sounds are sluggish and patient had an episode of liquid stool last night and denies passing gas. Patient underwent abdominal and chest x-ray this morning which showed dilatation of large and small bowel loops an x-ray notes to correlate for possible bowel obstruction versus colonic ileus and have consulted general surgery and an order for a CT abdomen and pelvis is ordered and pending. We'll make the patient nothing by mouth and discuss further with surgery once CT abdomen is done. Pulmonary also following. 11/05/2021 Patient is seen and evaluated this morning and reports to some abdominal improvement although continues with distention and feeling bloated. Per nursing staff patient is having large amounts of gas and up to the commode multiple times with assistance although no bowel movement today. General surgery f ollowing for possible ileus. Patient with continued shortness of breath and pulmonary following and will order chest x-ray. Cardiology also following 11/06/2021 Patient is seen today in follow-up continues to have some abdominal bloating although feels it is slightly improved. Patient reports to having a bowel movement yesterday and reports to continued gas. Patient with indwelling Mai catheter for retention and patient was recently resumed on oral anticoagulant and started having some hematuria noted in the Mai. Will hold Eliquis and monitor closely for any further signs of active bleeding. Hemoglobin is stable at 12.9. Patient denies any painful burning or pressure or bladder discomfort. Patient is afebrile. Patient denies any worsening shortness of breath or chest pain. 11/07/2021 Patient is seen and evaluated in follow-up today currently sitting up in the chair reports to her abdominal distention feeling somewhat improved. Patient is passing gas and had a bowel movement yesterday but none today. Patient denies any abdominal pain and is asking for food. Patient has been maintained on ice chips and tolerating with no nausea or vomiting noted. Patient was noted hematuria in the indwelling Mai catheter and was recently resumed on eliquis and the increasing hematuria was noted. Anticoagulant on hold and there is some improvement noted in the Mai catheter. Urinalysis with culture was ordered and pending. Patient is afebrile denies any shortness of breath or chest pain. Cardiology also following and patient is continued on IV Lasix. Hemoglobin is s table today at 11.4. Potassium mildly low at 3.3 and will replace per protocol. 11/09/2021 Patient is seen and evaluated; nursing staff reporting multiple bowel movements yesterday; remains somewhat confused Vital signs are reviewed and reveal temperature of 98.3, pulse 68, respirations 16 and blood pressure of 112/70 Lab review reveals sodium 138, potassium 3.2, BUN/creatinine of 16/0.9 and blood glucose of 98 Surgery on board for abdominal ileus and recommending increase ambulation and encouraging oral intake Cardiology recommending to switch diuretics to oral; monitor renal function and electrolytes Patient to be discharged to skilled rehab once arrangements are made 11/11/2021 Patient is seen and evaluated in follow-up this morning and continues with some abdominal distention. Patient hematuria resolved and will resume low dose eliquis and monitor closely. Patient with urinary tract infection with ecoli and will start rocephin and order repeat Urinalysis. recommend replacing indwelling mai catheter with new urinalysis obtained. Patient followed by cardiology and have switched lasix to PO. Surgery following and recommending increased activity as tolerated and encouraged oral intake. Patient and staff report to having bowel movement yesterday. Patient is afebrile and denies chest pain or shortness of breath. 11/12/2021 Patient is seen today and has been having bowel movements and passing gas. Patient is tolerating diet and reports to improvement in abdominal distention. Xray shows continued bowel loops with stool and will continue with lactulose twice daily and to hold for loose stools. Patient is to continue with bowel regimen per surgery as well. Patient with indwelling mai catheter with ecoli on urine culture and is maintained on IV ceftriaxone for now and will likely transition to oral on discharge. Replaced mai catheter and repeat urinalysis much improved. Continue with indwelling mai catheter for retention. Patient is afebrile. Patient denies chest pain or shortness of breath. Patient denies any nausea or vomiting. 11/18/2021 Patient is seen in follow-up today and is being closely monitored. Patient continues with indwelling Mai catheter and continued on bowel regimen. Patient underwent CT abdomen which showed some improvement in the ileus. Patient reports the passing gas and having bowel movements. Potassium today was 3.0 and will replace per protocol and recommend repeat labs. Family at the bedside and patient continues with weakness and will be going to [facility] once stabilized and discharged. Patient denies worsening shortness of breath, chest pain or palpitations. Patient is afebrile. Patient reports to tolerating diet. Review of systems: Constitutional: No reports of fatigue, fever, or chills Cardiovascular: No reports of chest pain or palpitations Respiratory: No reports of worsening shortness of breath or cough GI: No reports of nausea, vomiting, or diarrhea : No reports of dysuria or retention Neurovascular: reports of generalized weakness All medications have been reviewed Active Medications Hydrocodone Bitart/Acetaminophen (Hydrocodone/Apap 7.5-325mg 1 Each Tab) 1 each PO BID PRN PRN Reason: moderate Pain Last Admin: 11/13/21 20:56 Dose: 1 each Documented by: Acetazolamide (Acetazolamide 250 Mg Tab) 250 mg PO DAILY [facility] Last Admin: 11/18/21 12:24 Dose: Not Given Documented by: Albuterol/Ipratropium (Ipratropium-Albuterol 3 Ml Neb) 3 ml INHALATION RT-QID [facility] Last Admin: 11/17/21 18:51 Dose: 3 ml Documented by: Albuterol/Ipratropium (Ipratropium-Albuterol 3 Ml Neb) 3 ml INHALATION RT-QID PRN PRN Reason: Shortness Of Breath Or Wheezing Apixaban (Apixaban 2.5 Mg Tablet) 2.5 mg PO BID [facility]; Protocol Last Admin: 11/18/21 12:24 Dose: Not Given Documented by: Atorvastatin Calcium (Atorvastatin 40 Mg Tab) 40 mg PO HS@2100 [facility] Last Admin: 11/17/21 21:35 Dose: 40 mg Documented by: Bisacodyl (Bisacodyl 10 Mg Supp) 10 mg RECTAL DAILY [facility] Last Admin: 11/18/21 12:24 Dose: Not Given Documented by: Budesonide/Formoterol Fumarate (Symbicort 160-4.5 Mcg Inhaler) 2 puff INHALATION RT-BID@0900,2100 [facility] Last Admin: 11/17/21 18:52 Dose: 2 puff Documented by: Clobetasol Propionate (Clobetasol Prop 0.05% Cr 15gm) 1 applic TOPICAL Q12H [facility] Last Admin: 11/18/21 12:24 Dose: Not Given Documented by: Cyanocobalamin (Cyanocobalamin 500 Mcg Tab) 1,000 mcg PO DAILY [facility] Last Admin: 11/18/21 12:24 Dose: Not Given Documented by: Docusate Sodium (Docusate 100 Mg Cap) 100 mg PO DAILY PRN PRN Reason: Constipation Last Admin: 11/02/21 21:49 Dose: 100 mg Documented by: Duloxetine HCl (Duloxetine Hcl 20 Mg Capsule.Dr) 20 mg PO HS@2100 [facility] Last Admin: 11/17/21 21:36 Dose: 20 mg Documented by: Fluticasone Propionate (Fluticasone 50mcg/[place] Nasal 16gm) 1 spray EA NOSTRIL DAILY PRN PRN Reason: Allergy Symptoms Furosemide (Furosemide 40 Mg Tab) 40 mg PO BID@0900,1600 [facility] Last Admin: 11/18/21 12:24 Dose: Not Given Documented by: Piperacillin Sod/Tazobactam (Sod 3.375 gm/ Sodium Chloride) 100 mls @ 25 mls/hr IVPB Q8H [facility]; Protocol Last Admin: 11/18/21 05:21 Dose: 25 mls/hr Documented by: Lactulose (Lactulose 20 Gm/30 Ml Cup) 20 gm PO QID [facility] Last Admin: 11/18/21 12:31 Dose: Not Given Documented by: Levothyroxine Sodium (Levothyroxine 75 Mcg Tab) 75 mcg PO DAILY@0630 [facility] Last Admin: 11/18/21 05:20 Dose: 75 mcg Documented by: Magnesium Hydroxide (Magnesium Hydroxide 2,400 Mg/10 Ml Cup) 2,400 mg PO DAILY [facility] Last Admin: 11/18/21 12:31 Dose: Not Given Documented by: Metoprolol Succinate (Metoprolol Succinate (Er) 25 Mg Tab.Er.24h) 25 mg PO DAILY@0900 [facility] Last Admin: 11/18/21 12:31 Dose: Not Given Documented by: Miscellaneous Information (Potassium Replacement Protocol 1 Each Misc) 1 each MISCELLANE DAILY PRN; Protocol PRN Reason: Per Protocol Pantoprazole Sodium (Pantoprazole 40 Mg Tablet) 40 mg PO AC-BRKFST [facility] Last Admin: 11/18/21 12:18 Dose: Not Given Documented by: Potassium Chloride (Potassium Chloride Er 20 Meq Tab.Er) 20 meq PO Q2HR [facility] Stop: 11/18/21 16:01 Pregabalin (Pregabalin 75 Mg Cap) 150 mg PO TID@0600,1400,2200 [facility] Last Admin: 04/25/22 05:20 Dose: 150 mg Documented by: Ropinirole HCl (Ropinirole Hcl 1 Mg Tab) 3 mg PO BID@0900,2100 [facility] Last Admin: 11/18/21 12:31 Dose: Not Given Documented by: Physical exam: GENERAL: The patient is alert and oriented x3. Well developed, well nourished. Morbidly obese. generally weak HEENT: Pupils are round and equally reacting to light. EOMI. No scleral icterus. No conjunctival pallor. Normocephalic, atraumatic. No pharyngeal erythema. No thyromegaly. CARDIOVASCULAR: S1 and S2 muffled PULMONARY: diminished breath sounds with some scattered rhonchi noted ABDOMEN: Soft, obese, nontender, less distended, bowel sounds. No palpable organomegaly. MUSCULOSKELETAL: No joint swelling or deformity. EXTREMITIES: No cyanosis, clubbing. Bilateral patellar like edema NEUROLOGICAL: Gross neurological examination did not reveal any focal deficits. diffusely weak SKIN: No rashes. no petechiae. Assessment: Acute hypoxic hypercapnic respiratory failure Right middle lobe pneumonia, possibly aspiration Acute Hypothyroidism abdominal pain and distention, chronic ileus, persistent Anterior abdominal wall hernia acute urinary tract infection, present on admission Hypokalemia Hematuria Severe vitamin B12 deficiency Pancytopenia secondary to ineffective erythropoiesis from vitamin B12 deficiency Acute on chronic Diastolic CHF, EF 55-60% Acute on chronic hypoxic respiratory failure Acute COPD exacerbation possible obesity hypoventilation syndrome Mild acute kidney injury Paroxysmal atrial fibrillation History of CVA/TIA Hypertension History of sleep apnea Chronic back pain History of ovarian cancer History of depression Morbid obesity with BMI of 48.5 DVT prophylaxis GI Prophylaxis: Pepcid NO code Plan: Recommend continue with current medications and symptomatic treatment and patient is maintained on IV Zosyn and will continue. Multiple medical cons ultations including infectious disease and surgery following. Patient did have replacement Mai and repeat urinalysis which was negative and blood cultures remain negative. Initial urinary culture showing E. coli. Patient continues with weakness and working with physical therapy daily. Patient also continued on bowel regimen and continuing with conservative management of ileus. Potassium today is 3.0 replace per protocol recommend repeat labs. Social work also following as patient will be returning to [facility] once stabilized and discharged. Will order repeat labs for the a.m. Due to multiple convex medical issues, prognosis is guarded. The impression and plan of care has been dictated by Lorna Garg, Nurse Practitioner as directed. Dr. Vega MD I have performed a history and examination and MDM of this patient, discussed the same with the dictator, and agree with the dictator's assessment and plan as written ,documented as a scribe. Based on total visit time, I have performed more than 50% of the visit. Objective - Vital Signs Vital signs: Vital Signs Temp 97.5 F L 11/18/21 05:00 Pulse 52 L 11/18/21 05:00 Resp 20 11/18/21 05:00 BP 93/50 11/18/21 05:00 Pulse Ox 94 L 11/18/21 05:00 Intake & Output 11/17/21 11/18/21 11/18/21 18:59 06:59 18:59 Intake Total 1060 Output Total 1600 Balance 1060 -1600 Intake: Intake, IV Titration 100 Amount Piperacillin-Tazobactam 3 100 .375 gm In Sodium Chloride 0.9% 100 ml @ 25 mls/hr IVPB Q8H [facility] Rx#: [id number] Oral 960 Output: Urine 1600 Other: Voiding Method Indwelling Catheter Indwelling Catheter # Voids 500 - Labs CBC & Chem 7: 11/18/21 06:07 11/18/21 06:07 Labs: Abnormal Lab Results - Last 24 Hours (Table) 11/18/21 11/18/21 Range/Units 06:07 06:07 WBC 3.5 L (3.8-10.6) k/uL RBC 3.10 L (3.80-5.40) m/uL Hgb 10.1 L (11.4-16.0) gm/dL Hct 32.8 L (34.0-46.0) % MCV 105.7 H (80.0-100.0) fL MCHC 30.9 L (31.0-37.0) g/dL Plt Count 136 L (150-450) k/uL Potassium 3.0 L (3.5-5.1) mmol/L Chloride 96 L (98-107) mmol/L Carbon Dioxide 39 H (22-30) mmol/L Creatinine 1.11 H (0.52-1.04) mg/dL Microbiology - Last 24 Hours (Table) 11/15/21 12:07 Blood Culture - Preliminary Blood No Growth after 48 hours
[2021-11-18] MEDS: IPRATROPIUM-ALBUTEROL 3 ML NEB INHALATION SCH ×3 (15:26→20:17)
[2021-11-18] MEDS: SYMBICORT 160-4.5 MCG INHALER INHALATION SCH ×2 (15:27→20:18)
[2021-11-18] MEDS: POTASSIUM CHLORIDE ER 20 MEQ TAB.ER PO SCH ×4 (15:30→20:56)
[2021-11-18] MEDS: POTASSIUM CHLORIDE ER 20 MEQ TAB.ER PO ONE ×2 (15:32→17:29)
[2021-11-18] MEDS ORDERED: POTASSIUM CHLORIDE ER 20 MEQ TAB.ER PO ONE (17:19)
[2021-11-18] MEDS: DULoxetine HCL 20 MG CAPSULE.DR PO SCH (20:56)
[2021-11-18] MEDS: ATORVASTATIN 40 MG TAB PO SCH (20:56)
[2021-11-19] MEDS: LEVOTHYROXINE 75 MCG TAB PO SCH (05:27)
[2021-11-19] MEDS: PREGABALIN 75 MG CAP PO SCH (05:27)
[2021-11-19] MEDS: PIPERACILLIN-TAZOBACTAM 3.375 GM in SODIUM CHLORIDE 0.9% 100 ML IVPB SCH ×2 (05:27→13:08)
[2021-11-19 06:54] LABS: Basophils % (A) 0 %; Eosinophils # (A) 0.1 k/uL (0-0.7); Eosinophils % (A) 4 %; HCT 34.6 % (34.0-46.0); HGB 10.4 gm/dL (11.4-16.0); Hypochromasia Marked; Lymphocytes # (A) 0.9 k/uL (1.0-4.8); Lymphocytes % (A) 26 %; MCH 31.9 pg (25.0-35.0); MCHC 30.1 g/dL (31.0-37.0); MCV 105.9 fL (80.0-100.0); Macrocytosis Moderate; Monocytes # (A) 0.2 k/uL (0-1.0); Monocytes % (A) 5 %; Neutrophils # (A) 2.2 k/uL (1.3-7.7); Neutrophils % (A) 63 %; Platelet Count 153 k/uL (150-450); RBC 3.27 m/uL (3.80-5.40); RDW 15.2 % (11.5-15.5); WBC 3.5 k/uL (3.8-10.6)
[2021-11-19 07:02] LABS: ALT 9 U/L (4-34); AST 21 U/L (14-36); African American GFR (CKD) 59 (>60 ml/min/1.73 sqM); Albumin 3.2 g/dL (3.5-5.0); Albumin/Globulin Ratio 1.2; Alkaline Phosphatase 61 U/L (38-126); Anion Gap 6 mmol/L; Bilirubin,Unconjugated 0.3 mg/dL (0.0-1.1); Blood Urea Nitrogen 11 mg/dL (7-17); Calcium 8.7 mg/dL (8.4-10.2); Chloride 99 mmol/L (98-107); Globulin 2.7 g/dL; Glucose 89 mg/dL (74-99); Magnesium 2.5 mg/dL (1.6-2.3); Non-African American GFR(CKD) 51 (>60 ml/min/1.73 sqM); Potassium 3.5 mmol/L (3.5-5.1); Sodium 145 mmol/L (137-145); Total Bilirubin 0.5 mg/dL (0.2-1.3); Total Protein 5.9 g/dL (6.3-8.2)
[2021-11-19 07:09] LABS: Carbon Dioxide 40 mmol/L (22-30)
[2021-11-19 07:18] LABS: T4, Free (Free Thyroxine) 0.44 ng/dL (0.78-2.19)
[2021-11-19] MEDS: IPRATROPIUM-ALBUTEROL 3 ML NEB INHALATION SCH ×3 (08:03→16:09)
[2021-11-19] MEDS: SYMBICORT 160-4.5 MCG INHALER INHALATION SCH (08:03)
[2021-11-19] MEDS ORDERED: POTASSIUM CHLORIDE ER 20 MEQ TAB.ER PO SCH (09:00)
[2021-11-19] MEDS: LACTULOSE 20 GM/30 ML CUP PO SCH ×2 (09:02→13:08)
[2021-11-19] MEDS: MAGNESIUM HYDROXIDE 2,400 MG/10 ML CUP PO SCH (09:02)
[2021-11-19] MEDS: bisacodyL 10 MG SUPP RECTAL SCH (09:02)
[2021-11-19] MEDS: acetaZOLAMIDE 250 MG TAB PO SCH (09:03)
[2021-11-19] MEDS: CYANOCOBALAMIN 500 MCG TAB PO SCH (09:03)
[2021-11-19] MEDS: CLOBETASOL PROP 0.05% CR 15GM TOPICAL SCH (09:04)
[2021-11-19] MEDS: METOPROLOL SUCCINATE (ER) 25 MG TAB.ER.24H PO SCH (09:04)
[2021-11-19] MEDS: APIXABAN 2.5 MG TABLET PO SCH (09:04)
[2021-11-19] MEDS: PANTOPRAZOLE 40 MG TABLET PO SCH (09:04)
[2021-11-19] MEDS: FUROSEMIDE 40 MG TAB PO SCH (09:04)
[2021-11-19] MEDS: HYDROcodone/APAP 7.5-325MG 1 EACH TAB PO PRN (11:01)
[2021-11-19 11:45] VITALS: BP 113/70; PULSE 65; RESP 16; TEMP 98.2
--- NOTE | 2021-11-19 13:39 | P.PN ---
Subjective Progress Note Date: 11/19/21 CHIEF COMPLAINT: Abdominal ileus HISTORY OF PRESENT ILLNESS: Patient is sitting up in bedside chair. She reports improvement in her abdominal pain. She does report feeling still little distended in the upper abdomen. She is having bowel movements. Denies any nausea or vomiting. She is tolerating diet. She's afebrile. They're planning on discharging her to ECF later today. Afebrile WBC 3.5 hemoglobin 10.4 platelets 153 sodium 145 potassium 3.5 creatinine 1.01 PHYSICAL EXAM: VITAL SIGNS: Reviewed. GENERAL: Well-developed in no acute distress. HEENT: No sclera icterus. Extraocular movements grossly intact. Moist buccal mucosa. Head is atraumatic, normocephalic. ABDOMEN: soft. Nontender. Mildly distended. NEUROLOGIC: awake and alert. [place] of hearing ASSESSMENT: 1. Colonic ileus 2. Hypokalemia 3. Acute CHF exacerbation followed by cardiology 4. Chronic back pain PLAN: -No surgical intervention planned -Okay to discharge from surgical standpoint -Continue bowel regimen -Potassium replaced Physician Laboratory Engineer note has been reviewed by physician. Signing provider agrees with the documented findings, assessment, and plan of care. I have personally seen and examined the patient, reviewed the ORDER CLERK /PAs history, exam and MDM and agree with the assessment and plan as written. Based on total visit time, I have performed more than 50% of the visit. As above: As above. Patient with ongoing bowel function. Should improve with gradual increase in activity. Continue stool softeners and cathartics. Stable for discharge. Objective - Vital Signs Vital signs: Vital Signs Temp 98.2 F 11/19/21 11:39 Pulse 65 11/19/21 11:39 Resp 16 11/19/21 11:39 BP 113/70 11/19/21 11:39 Pulse Ox 92 L 11/19/21 11:39 Intake & Output 11/18/21 11/19/21 11/19/21 18:59 06:59 18:59 Intake Total 663 Output Total 835 023 1114 Balance 113 -600 -1100 Weight 115.1 kg Intake: Intake, IV Titration 125 Amount Piperacillin-Tazobactam 3 125 .375 gm In Sodium Chloride 0.9% 100 ml @ 25 mls/hr IVPB Q8H [facility] Rx#: [id number] Oral 538 Output: Urine 434 [id number] Other: Voiding Method Indwelling Catheter Indwelling Catheter Indwelling Catheter # Bowel Movements 1 1 - Labs CBC & Chem 7: 11/19/21 05:38 11/19/21 05:38 Labs: Abnormal Lab Results - Last 24 Hours (Table) 11/19/21 11/19/21 Range/Units 05:38 05:38 WBC 3.5 L (3.8-10.6) k/uL RBC 3.27 L (3.80-5.40) m/uL Hgb 10.4 L (11.4-16.0) gm/dL MCV 105.9 H (80.0-100.0) fL MCHC 30.1 L (31.0-37.0) g/dL Lymphocytes # 0.9 L (1.0-4.8) k/uL Carbon Dioxide 40 H (22-30) mmol/L Magnesium 2.5 H (1.6-2.3) mg/dL Total Protein 5.9 L (6.3-8.2) g/dL Albumin 3.2 L (3.5-5.0) g/dL TSH 25.700 H (0.465-4.680) mIU/L Free T4 0.44 L (0.78-2.19) ng/dL Microbiology - Last 24 Hours (Table) 11/15/21 12:07 Blood Culture - Preliminary Blood No Growth after 72 hours
--- NOTE | 2021-11-19 14:11 | P.DS ---
Providers Date of admission: 10/31/21 05:47 Expected date of discharge: 11/19/21 Attending physician: Anibal Ferrari Consults: 10/31/21 05:47 Consult Physician Routine Consulting Provider: Ramana Garaz Consult Reason/Comments: chf Do you want consulting provider notified?: Yes Consult Physician Routine Consulting Provider: Eli Casas Consult Reason/Comments: known Do you want consulting provider notified?: Yes 11/04/21 13:46 Consult Physician Routine Consulting Provider: Tereso Smith Consult Reason/Comments: SBO vs ileus Do you want consulting provider notified?: Already Contacted 11/13/21 15:54 Consult Physician Routine Consulting Provider: Tamika Allen Consult Reason/Comments: UTI Do you want consulting provider notified?: Yes 11/15/21 10:53 Consult Physician Routine Consulting Provider: Tereso Smith Consult Reason/Comments: possible bowel obstruction Do you want consulting provider notified?: Yes 11/15/21 10:54 Consult Physician Routine Consulting Provider: Eli Casas Consult Reason/Comments: possible developing pneumonia Do you want consulting provider notified?: Yes Primary care physician: Shira Ortega Hospital Course: Final diagnosis Acute hypoxic hypercapnic respiratory failure Right middle lobe pneumonia, possibly aspiration Hypothyroidism abdominal pain and distention, chronic ileus, persistent Anterior abdominal wall hernia acute urinary tract infection, present on admission Hypokalemia Hematuria Severe vitamin B12 deficiency Pancytopenia secondary to ineffective erythropoiesis from vitamin B12 deficiency Acute on chronic Diastolic CHF, EF 55-60% Acute on chronic hypoxic respiratory failure Acute COPD exacerbation possible obesity hypoventilation syndrome Mild acute kidney injury Paroxysmal atrial fibrillation History of CVA/TIA Hypertension History of sleep apnea Chronic back pain History of ovarian cancer History of depression Morbid obesity with BMI of 48.5 DVT prophylaxis GI Prophylaxis NO code Discharge disposition Patient is being discharged in a stable condition with guarded prognosis to [facility]. Patient will follow-up with Dr. Li upon discharge. Patient will continue with a short course of oral antibiotics in the form of Augmentin twice daily for the next 7 days and then may discontinue. Patient will need outpatient follow-up with endocrine and cardiology and also primary care provider . Total time taken is greater than 35 minutes. Hospital course This is an 86-year-old female who was recently admitted with increasing shortness of breath along with weakness and inability to ambulate with increased confusion and was being closely monitored. She was in CHF exacerbation with hypoxia. Patient was placed on BiPAP and is using that at night and patient will continue and also was maintained on 2-4 L via nasal cannula in the outpatient setting and will continue. Patient also found to be constipated and was evaluated by general surgery for what appeared to be an ileus patient was maintained on bowel regimen and will continue current medications as mentioned below. Patient was maintained on IV antibiotics for possible urinary tract infection and also was requiring indwelling Ramos catheter for retention and urine culture showed E. coli with sensitivity and was evaluated by infectious disease. Repeat urinalysis and urine culture is negative. Indwelling Ramos catheter removed and patient will continue on oral Augmentin twice daily for the next 1 week and then may discontinue. Patient will continue with physical therapy as patient continues with weakness. Patient's TSH is elevated and T4 is low and patient is maintained on levothyroxine 75 g daily and recommend repeat labs in 4 weeks and follow up with endocrine in the outpatient setting. Currently no reports of chest pain, shortness of breath, or palpitations. Patient is afebrile. No reports of nausea or vomiting and patient is tolerating diet. Patient will be discharged to [facility] today. Guarded prognosis. Physical Exam: Gen: This is a 86-year-old female awake, alert and oriented 3, hard of hearing, morbidly obese HEENT: Head is atraumatic, normocephalic. Pupils equal, round. Sclerae is anicteric. NECK: Supple. No JVD. No lymphadenopathy. No thyromegaly. LUNGS:Diminished breath sounds bilaterally with some scattered rhonchi noted No intercostal retractions. HEART: Regular rate and rhythm. No murmur. ABDOMEN: Soft. obese Bowel sounds are present. No masses. No tenderness. EXTREMITIES: Continued bilateral lower extremity swelling. No calf tenderness. NEUROLOGICAL: Patient is awake, alert and oriented x3. Diffusely weak Please refer to medication reconciliation sheet for a list of medications. The impression and plan of care has been dictated by Lorna Garg, Nurse Practitioner as directed. Dr. Radha MD I have performed a history and examination and MDM of this patient, discussed the same with the dictator, and agree with the dictator's assessment and plan as written ,documented as a scribe. Based on total visit time, I have performed more than 50% of the visit. Patient Condition at Discharge: Fair Plan - Discharge Summary Discharge Rx Participant: No New Discharge Prescriptions: New Furosemide [Lasix] 40 mg PO BID@0900,1600 tab Magnesium Hydroxide [Milk of Magnesia Concentrate] 2,400 mg PO DAILY ml Famotidine [Pepcid] 20 mg PO DAILY tab Ipratropium-Albuterol Nebulize [Duoneb 0.5 mg-3 mg/3 ml Soln] 3 ml INHALATION RT-QID PRN ml PRN Reason: Shortness Of Breath Or Wheezing bisacodyL [Dulcolax] 10 mg RECTAL DAILY PRN #3 supp PRN Reason: Constipation Docusate [Colace] 100 mg PO DAILY PRN cap PRN Reason: Constipation Apixaban [Eliquis] 2.5 mg PO BID tablet Levothyroxine Sodium [Synthroid] 75 mcg PO DAILY@0630 tab Albuterol Nebulized [Ventolin Nebulized] 2.5 mg INHALATION RT-QID PRN ml PRN Reason: Shortness Of Breath Cyanocobalamin [Vitamin B-12] 1,000 mcg PO DAILY tab Amoxic-Pot Clav 875-125Mg [Augmentin 875-125] 1 tab PO Q12HR 7 Days #14 tab Lactulose [Cephulac] 20 gm PO QID ml Potassium Chloride ER [K-Dur 20] 20 meq PO DAILY tablet Pantoprazole [Protonix] 40 mg PO AC-BRKFST tab Continue Atorvastatin [Lipitor] 40 mg PO HS@2100 DULoxetine HCL [Cymbalta] 20 mg PO HS@2100 Fluticasone Nasal [place] [Flonase Nasal [place]] 1 spr EA NOSTRIL DAILY PRN PRN Reason: Allergy Symptoms Metoprolol Succinate [Toprol XL] 25 mg PO DAILY@0900 rOPINIRole HCL [Requip] 3 mg PO BID@0900,2100 Cholecalciferol [Vitamin D3 (25 Mcg = 1000 Iu)] 25 mcg PO DAILY@0900 Budesonide-Formot 160-4.5 Mcg [Symbicort 160-4.5 Mcg Inhaler] 2 puff INHALATION RT-BID@0900,2100 Ascorbic Acid [Vitamin C] 500 mg PO HS@2100 Clobetasol Propionate [Clobex [place] 0.05%] 1 applic TOPICAL Q12H Pregabalin [Lyrica] 150 mg PO TID@0600,1400,2200 #6 cap HYDROcodone/APAP 7.5-325MG [[place] 7.5-325] 1 tab PO BID PRN #6 tab PRN Reason: Pain Triamcinolone 0.1% Ointment [Kenalog 0.1% Ointment] 1 applic TOPICAL Q12H PRN PRN Reason: Rash Albuterol Inhaler [Ventolin Hfa Inhaler] 2 puff INHALATION RT-QID PRN PRN Reason: Shortness Of Breath acetaZOLAMIDE [Diamox] 250 mg PO DAILY@0900 Ipratropium-Albuterol Nebulize [Duoneb 0.5 mg-3 mg/3 ml Soln] 3 ml INHALATION RT-QID Melatonin [Melatonin Chew] 2.5 mg PO HS Discontinued Apixaban [Eliquis] 5 mg PO BID@899,2099 Clindamycin Phosphate [Cleocin T 1% Lotion] 1 applic TOPICAL Q12H Potassium Chloride ER [K-Dur 20] 20 meq PO DAILY@0900 Furosemide [Lasix] 40 mg PO DAILY@0600 Nystatin 100,000Unit/gm Cream [Mycostatin Cream] 1 applic TOPICAL BID Nystatin 100,000 Unit/gm Powd [Mycostatin Powder] 1 applic TOPICAL BID Discharge Medication List Atorvastatin [Lipitor] 40 mg PO HS@209908/17/17 [History] DULoxetine HCL [Cymbalta] 20 mg PO HS@209910/16/17 [History] Fluticasone Nasal [place] [Flonase Nasal [place]] 1 spr EA NOSTRIL DAILY PRN 12/12/19 [History] Metoprolol Succinate [Toprol XL] 25 mg PO DAILY@0900 12/12/19 [History] Triamcinolone 0.1% Ointment [Kenalog 0.1% Ointment] 1 applic TOPICAL Q12H PRN 06/15/21 [History] rOPINIRole HCL [Requip] 3 mg PO BID@0900,209906/15/21 [History] Albuterol Inhaler [Ventolin Hfa Inhaler] 2 puff INHALATION RT-QID PRN 07/17/21 [History] Ascorbic Acid [Vitamin C] 500 mg PO HS@209908/21/21 [History] Budesonide-Formot 160-4.5 Mcg [Symbicort 160-4.5 Mcg Inhaler] 2 puff INHALATION RT-BID@0900,2100 08/21/21 [History] Cholecalciferol [Vitamin D3 (25 Mcg = 1000 Iu)] 25 mcg PO DAILY@0900 08/21/21 [History] Ipratropium-Albuterol Nebulize [Duoneb 0.5 mg-3 mg/3 ml Soln] 3 ml INHALATION RT-QID 08/21/21 [History] acetaZOLAMIDE [Diamox] 250 mg PO DAILY@0900 08/21/21 [History] Clobetasol Propionate [Clobex [place] 0.05%] 1 applic TOPICAL Q12H 10/31/21 [History] Melatonin [Melatonin Chew] 2.5 mg PO HS 10/31/21 [History] Albuterol Nebulized [Ventolin Nebulized] 2.5 mg INHALATION RT-QID PRN ml 11/12/21 [Rx] Apixaban [Eliquis] 2.5 mg PO BID tablet 11/12/21 [Rx] Cyanocobalamin [Vitamin B-12] 1,000 mcg PO DAILY tab 11/12/21 [Rx] Docusate [Colace] 100 mg PO DAILY PRN cap 11/12/21 [Rx] Famotidine [Pepcid] 20 mg PO DAILY tab 11/12/21 [Rx] Furosemide [Lasix] 40 mg PO BID@0900,1600 tab 11/12/21 [Rx] HYDROcodone/APAP 7.5-325MG [[place] 7.5-325] 1 tab PO BID PRN #6 tab 11/12/21 [Rx] Levothyroxine Sodium [Synthroid] 75 mcg PO DAILY@0630 tab 11/12/21 [Rx] Magnesium Hydroxide [Milk of Magnesia Concentrate] 2,400 mg PO DAILY ml 11/12/21 [Rx] Pregabalin [Lyrica] 150 mg PO TID@0600,1400,2200 #6 cap 11/12/21 [Rx] Amoxic-Pot Clav 875-125Mg [Augmentin 875-125] 1 tab PO Q12HR 7 Days #14 tab 11/19/21 [Rx] Ipratropium-Albuterol Nebulize [Duoneb 0.5 mg-3 mg/3 ml Soln] 3 ml INHALATION RT-QID PRN ml 11/19/21 [Rx] Lactulose [Cephulac] 20 gm PO QID ml 11/19/21 [Rx] Pantoprazole [Protonix] 40 mg PO AC-BRKFST tab 11/19/21 [Rx] Potassium Chloride ER [K-Dur 20] 20 meq PO DAILY tablet 11/19/21 [Rx] bisacodyL [Dulcolax] 10 mg RECTAL DAILY PRN #3 supp 11/19/21 [Rx] Follow up Appointment(s)/Referral(s): Shira Ortega MD [Primary Care Provider] - 1-2 days Nav Shields MD [STAFF PHYSICIAN] - 1 Week Jcarlos Rahman MD [REFERRING] - 1 Week (histopath tech, for her thyroid disease) Guadalupe Benitez MD [STAFF PHYSICIAN] - 1 Week (histopath tech, for her thyroid disease) Activity/Diet/Wound Care/Special Instructions: Patient is going to [facility] on the [address] pt will need to follow up with an histopath tech as soon as possible , please call prior to discharge to make appointment and Lacey contact information is provided in the discharge instructions Patient is to continue on 2-4 L via nasal cannula during the day and may continue to use BiPAP at night with the settings of a rate of 12, FiO2 is 36%, PEEP is 5 Activity as tolerated Patient is returning to [facility] Follow up with pcp on discharge follow up with cardiology continue taking medications as prescribed recommend repeat labs of cbc and bmp in 2-3 days Recommend repeat TSH with free T4 in 4 weeks continue with antibiotic of Augmentin twice daily for the next 7 days until finished and then may discontinue continue current diet. continue bowel regimen Discharge Disposition: TRANSFER TO SNF/ECF
--- NOTE | 2021-11-21 11:44 | CDI ---
Documentation Clarification Form Date: 11/21/21 From: Kristine Thompson Admit Date: 10/31/2021 05:47:00 AM Patient Name: Payton Ridley Visit Number: [id number] Discharge Date: 11/19/2021 05:21:00 PM ATTENTION: The Clinical Documentation Specialists (CDI) and [facility] Coding Staff appreciate your assistance in clarifying documentation. Please respond to the clarification below the line at the bottom and electronically sign. The CDI & [facility] Coding staff will review the response and follow-up if needed. Please note: Queries are made part of the Legal Health Record. If you have any questions, please contact the author of this message via ITS. Dr. Corina Garcia, Your patient has the documented symptom of Altered Mental Status/confusion" in ED note, H&P, progress notes, Dr Allen's consult and discharge summary. Additional clarification regarding the etiology/cause of this symptom is requested. History/Risk Factors: HTN w acute on chronic diastolic CHF, acute on chronic hypoxic/hypercapnia respiratory failure, aspiration pneumonia, catheter associated UTI Clinical Indicators: ED note: Patient's confusion likely due to transient hypoxemia at home, possible hypoventilation. 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 No acute bleed or mass effect. Treatment: IV Lasix Please clarify the etiology of the symptom of Altered Mental Status: [ ] [Insert type of encephalopathy] Encephalopathy due to [insert cause of encephalopathy] [ ] Delirium (specify cause): [ x] Dementia (if know, specify Type and if with/without Behavioral Disturbance) [ ] Other condition (please specify) [ ] Unable to determine MTDD
--- NOTE | 2021-11-26 23:32 | P.PN ---
Subjective Progress Note Date: 11/18/21 Principal diagnosis: Catheter Associated urinary tract infection Patient is 86-year-old female presents to the hospital with multiple complaints and has been treated for multiple condition patient did have a Ramos catheter during this admission and cultures have been positive for E. coli concerning for catheter associated UTI. On today's evaluation that is 11/18/2021, the patient continues to be afebrile, the patient is breathing comfortably on nasal cannula oxygen, the patient denies chest pain , the patient did have occasional dry cough patient has been complain ing of epigastric upset but no vomiting or diarrhea Objective - Vital Signs Vital signs: Vital Signs Temp 98.6 F 11/18/21 11:50 Pulse 57 L 11/18/21 11:50 Resp 20 11/18/21 11:50 BP 94/60 11/18/21 11:50 Pulse Ox 94 L 11/18/21 11:50 Intake & Output 11/17/21 11/18/21 11/18/21 18:59 06:59 18:59 Intake Total 1060 538 Output Total 1600 Balance 1060 -1600 538 Intake: Intake, IV Titration 100 Amount Piperacillin-Tazobactam 3 100 .375 gm In Sodium Chloride 0.9% 100 ml @ 25 mls/hr IVPB Q8H [facility] Rx#: [id number] Oral 960 538 Output: Urine 1600 Other: Voiding Method Indwelling Catheter Indwelling Catheter # Voids 500 # Bowel Movements 1 - Exam GENERAL DESCRIPTION: An elderly female lying in bed in no distress RESPIRATORY SYSTEM: Unlabored breathing , decreased breath sounds at bases HEART: S1 S2 regular rate and rhythm , ABDOMEN: Soft , no tenderness EXTREMITIES: One plus edema feet - Labs CBC & Chem 7: 11/19/21 05:38 11/19/21 05:38 Labs: Abnormal Lab Results - Last 24 Hours (Table) 11/18/21 11/18/21 Range/Units 06:07 06:07 WBC 3.5 L (3.8-10.6) k/uL RBC 3.10 L (3.80-5.40) m/uL Hgb 10.1 L (11.4-16.0) gm/dL Hct 32.8 L (34.0-46.0) % MCV 105.7 H (80.0-100.0) fL MCHC 30.9 L (31.0-37.0) g/dL Plt Count 136 L (150-450) k/uL Potassium 3.0 L (3.5-5.1) mmol/L Chloride 96 L (98-107) mmol/L Carbon Dioxide 39 H (22-30) mmol/L Creatinine 1.11 H (0.52-1.04) mg/dL Microbiology - Last 24 Hours (Table) 11/15/21 12:07 Blood Culture - Preliminary Blood No Growth after 48 hours Assessment and Plan (1) UTI (urinary tract infection) Status: Acute Code(s): N39.0 - URINARY TRACT INFECTION, SITE NOT SPECIFIED SNOMED Code(s): 22200257 Plan: 1patient with multiple positive UA and cultures predominantly growing E. coli in this patient did have a Ramos catheter during this hospital admission with a question of possible Ramos colonization versus mild cystitis clinical not behaving as a deep infection in this patient with no fever or elevated white count. 2 patient with abnormal x-ray concerning for pneumonia however clinically not behaving as such did have ileus with a repeat CT still show some improvement, patient is currently being treated with Zosyn and will transition to oral antibiotic on discharge Time with Patient: Less than 30
--- NOTE | 2021-11-26 23:34 | P.PN ---
Subjective Progress Note Date: 11/19/21 Principal diagnosis: Catheter Associated urinary tract infection Patient is 86-year-old female presents to the hospital with multiple complaints and has been treated for multiple condition patient did have a Ramos catheter during this admission and cultures have been positive for E. coli concerning for catheter associated UTI. On today's evaluation that is 11/19/2021, the patient denies any fever or chills, the patient is breathing comfortably on nasal cannula oxygen, the patient denies chest pain , the patient did have occasional dry cough patient denies any abdominal pain no vomiting or diarrhea Objective - Vital Signs Vital signs: Vital Signs Temp 98.2 F 11/19/21 11:39 Pulse 65 11/19/21 11:39 Resp 16 11/19/21 11:39 BP 113/70 11/19/21 11:39 Pulse Ox 92 L 11/19/21 11:39 Intake & Output 11/18/21 11/19/21 11/19/21 18:59 06:59 18:59 Intake Total 663 Output Total 550 600 Balance 113 -600 Weight 115.1 kg Intake: Intake, IV Titration 125 Amount Piperacillin-Tazobactam 3 125 .375 gm In Sodium Chloride 0.9% 100 ml @ 25 mls/hr IVPB Q8H [facility] Rx#: [id number] Oral 538 Output: Urine 550 600 Other: Voiding Method Indwelling Catheter Indwelling Catheter Indwelling Catheter # Bowel Movements 1 1 - Exam GENERAL DESCRIPTION: An elderly female lying in bed in no distress RESPIRATORY SYSTEM: Unlabored breathing , decreased breath sounds at bases HEART: S1 S2 regular rate and rhythm , ABDOMEN: Soft , no tenderness EXTREMITIES: One plus edema feet - Labs CBC & Chem 7: 11/19/21 05:38 11/19/21 05:38 Labs: Abnormal Lab Results - Last 24 Hours (Table) 11/19/21 11/19/21 Range/Units 05:38 05:38 WBC 3.5 L (3.8-10.6) k/uL RBC 3.27 L (3.80-5.40) m/uL Hgb 10.4 L (11.4-16.0) gm/dL MCV 105.9 H (80.0-100.0) fL MCHC 30.1 L (31.0-37.0) g/dL Lymphocytes # 0.9 L (1.0-4.8) k/uL Carbon Dioxide 40 H (22-30) mmol/L Magnesium 2.5 H (1.6-2.3) mg/dL Total Protein 5.9 L (6.3-8.2) g/dL Albumin 3.2 L (3.5-5.0) g/dL TSH 25.700 H (0.465-4.680) mIU/L Free T4 0.44 L (0.78-2.19) ng/dL Microbiology - Last 24 Hours (Table) 11/15/21 12:07 Blood Culture - Preliminary Blood No Growth after 72 hours Assessment and Plan (1) UTI (urinary tract infection) Status: Acute Code(s): N39.0 - URINARY TRACT INFECTION, SITE NOT SPECIFIED SNOMED Code(s): 29199327 Plan: 1patient with multiple positive UA and cultures predominantly growing E. coli in this patient did have a Ramos catheter during this hospital admission with a question of possible Ramos colonization versus mild cystitis clinical not behaving as a deep infection in this patient with no fever or elevated white count. 2 patient with abnormal x-ray concerning for pneumonia however clinically not behaving as such did have ileus with a repeat CT still show some improvement, patient have shown clinical improvement to discontinue Zosyn on discharged and short course of oral Augmentin discussed with nurse practitioner for admitting team working on discharge Time with Patient: Less than 30
--- NOTE | 2021-11-27 18:54 | CDI ---
Documentation Clarification Form Date: 11/27/2021 06:00:27 PM From: Mana Chowdhury RN CCDS Admit Date: 10/31/2021 05:47:00 AM Patient Name: Payton Ridley Visit Number: [id number] Discharge Date: 11/19/2021 05:21:00 PM ATTENTION: The Clinical Documentation Specialists (CDI) and [facility] Coding Staff appreciate your assistance in clarifying documentation. Please respond to the clarification below the line at the bottom and electronically sign. The CDI & [facility] Coding staff will review the response and follow-up if needed. Please note: Queries are made part of the Legal Health Record. If you have any questions, please contact the author of this message via ITS. Dr. Corina Garcia Acute UTI present on admission is documented 11/19, Discharge summary, which may lack sufficient clinical evidence/support in the medical record. Additional clarification is requested. History/Risk Factors: 86-year-old female presents to the ED with confusion, weakness, shortness of breath and unable to ambulate. Medical History: CHF, AFIB, CVA, HTN and Ovarian cancer. 10/31, H&P. Clinical Indicators: UA Lab Dates: 10/31 11/07 11/11 11/12 11/12 Urine Appearance: Clear Cloudy Cloudy Turbid Clear Blood: Negative Moderate Large Large Negative Nitrate: Negative Negative Positive Positive Negative Leukocyte Esterase: Negative Large Large Large Small RBC: >182 >182 >182 2 WBC: 73 159 >182 27 WBC Clumps: Few Few Many Urine Bacteria: Occasional Rare Hyaline Casts: 54 68 31 10/31, Nursing documentation Urinary catheter assessment: Date of insertion 10/31. 11/11, Medicine progress note: Patient with urinary tract infection with ecoli and will start Rocephin and order repeat urinalysis. Recommend replacing indwelling mai catheter with new urinalysis obtained. 11/12 Nursing documentation Urinary catheter assessment: Date of insertion 11/12 11/13, ID consult: Patient with multiple positive UA and cultures predominantly growing E.coli in this patient did have a Mai catheter during this hospital admission with a question of possible Mai colonization versus mild cystitis clinical not behaving as a deep infection. 11/14, ID progress note: Principal diagnosis catheter associated urinary tract infection. Treatment: 11/11 Ceftriaxone 2gm x 1; 11/12 11/15 Ceftriaxone 2gm IVPB Q24H; 11/15 11/19 Zosyn 3.375gm IVPB Q8H. Please clarify if UTI POA is a valid diagnosis? [x ] Yes, UTI is present on admission as evidence by (additional clinical support): __ecoli in cultures [ ] No, UTI is ruled out [ ] Other (please specify diagnosis) [ ] Unable to determine (Template Last Revised: September 2020) MTDD
--- NOTE | 2021-12-05 00:57 | P.PN ---
Subjective Progress Note Date: 11/10/21 Principal diagnosis: Colonic ileus Acute exacerbation CHF with preserved EF Acute on chronic hypercapnic respiratory failure/ Acute COPD exacerbation Acute Hypothyroidism Severe vitamin B12 deficiency 86 years old female with past medical history of Atrial Fibrillation, on Eliquis, heart Failure, CVA/TIA, Hypertension, Pneumonia, Sleep Apnea/CPAP/BIPAP, chronic back pain, ovarian cancer, C-DIFF infection , Depression Presents because of increased confusion, shortness of breath, weakness and inability to ambulate Patient was on BiPAP in bed comfortable, information obtained with the help of the daughter Jodi at bedside As per daughter patient is on 3 L/m of oxygen at home and she is on BiPAP at night since July when she was sick. 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 Bearden. 2 days ago patient was tired but, however yesterday she become really sick, it was so bad day for her as per daughter, she was confused, sleeping a lot, could not take her medication, she could not stand up. At baseline she walks about 15-21 feet. Then daughter noticed that she was becoming more hypoxic with oxygen dropped to 59% while on 3 L, she bumped up her oxygen to 4.5 L per minute and saturation improved to 83% as per daughter. So she called EMS for her. Patient is awake and alert, she notes she is in the current hospital in [place], she thought its 05/30/2022. And she is oriented to person as well. She denies any chest pain or dyspnea. She has her insight into her nose. She denies headache or weakness or numbness. No vomiting or diarrhea actually she is constipat she denies urinary symptoms but Doppler reports decreased urine output, She never smoked, she does not drink alcohol. 11/09/2021 Patient is seen and evaluated; nursing staff reporting multiple bowel movements yesterday; remains somewhat confused Vital signs are reviewed and reveal temperature of 98.3, pulse 68, respirations 16 and blood pressure of 112/70 Lab review reveals sodium 138, potassium 3.2, BUN/creatinine of 16/0.9 and blood glucose of 98 Surgery on board for abdominal ileus and recommending increase ambulation and encouraging oral intake Cardiology recommending to switch diuretics to oral; monitor renal function and electrolytes Patient to be discharged to skilled rehab once arrangements are made 11/10/2021 Patient is seen and evaluated in follow-up this morning and continues with some abdominal distention. Patient hematuria resolved and will resume low dose eliquis and monitor closely. Patient with urinary tract infection with ecoli and will start rocephin and order repeat Urinalysis. recommend replacing indwelling mai catheter with new urinalysis obtained. Patient followed by cardiology and have switched lasix to PO. Surgery following and recommending increased activity as tolerated and encouraged oral intake. Patient and staff report to having bowel movement yesterday. Patient is afebrile and denies chest pain or shortness of breath. Objective - Vital Signs Vital signs: Vital Signs Temp 97.5 F L 11/10/21 05:00 Pulse 74 11/10/21 08:20 Resp 18 11/09/21 20:37 BP 121/72 11/10/21 05:00 Pulse Ox 98 11/10/21 08:08 Intake & Output 11/09/21 11/10/21 11/10/21 18:59 06:59 18:59 Intake Total 1090 240 Output Total 500 Balance 590 240 Weight 111.5 kg Intake: Oral 1090 240 Output: Urine 500 Other: Voiding Method Indwelling Catheter Indwelling Catheter - Exam GENERAL: The patient is alert and oriented x3. Well developed, well nourished. Morbidly obese. generally weak HEENT: Pupils are round and equally reacting to light. EOMI. No scleral icterus. No conjunctival pallor. Normocephalic, atraumatic. No pharyngeal erythema. No thyromegaly. CARDIOVASCULAR: S1 and S2 muffled PULMONARY: diminished breath sounds with some scattered rhonchi noted ABDOMEN: Soft, obese, nontender, less distended, bowel sounds. No palpable organomegaly. MUSCULOSKELETAL: No joint swelling or deformity. EXTREMITIES: No cyanosis, clubbing. Bilateral patellar like edema NEUROLOGICAL: Gross neurological examination did not reveal any focal deficits. diffusely weak - Labs CBC & Chem 7: 11/19/21 05:38 11/19/21 05:38 Labs: Abnormal Lab Results - Last 24 Hours (Table) 11/09/21 Range/Units 17:58 Potassium 3.2 L (3.5-5.1) mmol/L Microbiology - Last 24 Hours (Table) 11/07/21 08:00 Urine Culture - Final Urine,Clean Catch Escherichia coli Assessment and Plan Assessment: Acute hypoxic hypercapnic respiratory failure Acute Hypothyroidism abdominal pain and distention, possible ileus Hematuria Severe vitamin B12 deficiency Pancytopenia secondary to ineffective erythropoiesis from vitamin B12 deficiency Acute on chronic Diastolic CHF, EF 55-60% Acute on chronic hypoxic respiratory failure Acute COPD exacerbation possible obesity hypoventilation syndrome Mild acute kidney injury Paroxysmal atrial fibrillation History of CVA/TIA Hypertension History of sleep apnea Chronic back pain History of ovarian cancer History of depression Morbid obesity with BMI of 48.5 DVT prophylaxis GI Prophylaxis: Pepcid NO code Plan: This is a pleasant 86 years old female who presents with acute dyspnea and bilateral pulmonary infiltrate. Patient continues on IV Lasix along with inhaled steroids and bronchodilators and oxygen. Continue with BiPAP as needed and at night. We'll transition to oral Lasix tomorrow Cardiology and pulmonary following, general surgery following for possible ileus, recommending close monitoring and discussed endoscopic intervention and patient refusing at this time. Family at the bedside Patient noted to have some hematuria noted in the Mai and was recently resumed on Eliquis and subsequently some blood was noted in the urine. Urine with culture ordered and pending and will continue to hold anticoagulants for now and monitor closely. Hemoglobin is stable at this time and will repeat labs. PT/OT: Recommended subacute rehab, social work following, patient will return to [facility] once stable, will need insurance auth for [facility] Continue current bowel regimen and monitoring of intake and output and diet being resumed and will monitor for tolerance Prognosis is guarded
== END 2021-11-19 17:21 | DRG 291 ==
LOC: EC 02:38 → 4SSUR 05:47 → 5NMEDONC 06:22
PROVIDERS: ADMIT Hospitalist; ATTEND Hospitalist
PROC: 5A09557 Assistance with Respiratory Ventilation, Greater than 96 Consecutive Hours, Continuous Positive Airway Pressure (ICD-10-PCS; principal; 2021-10-31)
DX: I11.0 Hypertensive heart disease with heart failure (principal); J96.21 Acute and chronic respiratory failure with hypoxia; J96.22 Acute and chronic respiratory failure with hypercapnia; I50.33 Acute on chronic diastolic (congestive) heart failure; J69.0 Pneumonitis due to inhalation of food and vomit; N39.0 Urinary tract infection, site not specified; T83.511A Infection and inflammatory reaction due to indwelling urethral catheter, initial encounter; D61.818 Other pancytopenia; E87.2 Acidosis; N17.9 Acute kidney failure, unspecified; E87.3 Alkalosis; K56.0 Paralytic ileus; E66.2 Morbid (severe) obesity with alveolar hypoventilation; J44.0 Chronic obstructive pulmonary disease with (acute) lower respiratory infection; J44.1 Chronic obstructive pulmonary disease with (acute) exacerbation; Z68.42 Body mass index [BMI] 45.0-49.9, adult; J98.11 Atelectasis; I27.20 Pulmonary hypertension, unspecified; G25.81 Restless legs syndrome; I48.0 Paroxysmal atrial fibrillation; F03.90 Unspecified dementia, unspecified severity, without behavioral disturbance, psychotic disturbance, mood disturbance, and anxiety; I71.2 Thoracic aortic aneurysm, without rupture; J84.10 Pulmonary fibrosis, unspecified; Z66 Do not resuscitate; Z20.822 Contact with and (suspected) exposure to COVID-19; B96.20 Unspecified Escherichia coli [E. coli] as the cause of diseases classified elsewhere; E87.6 Hypokalemia; I08.3 Combined rheumatic disorders of mitral, aortic and tricuspid valves; R31.9 Hematuria, unspecified; I25.10 Atherosclerotic heart disease of native coronary artery without angina pectoris; M79.7 Fibromyalgia; E03.9 Hypothyroidism, unspecified; E78.5 Hyperlipidemia, unspecified; K43.9 Ventral hernia without obstruction or gangrene; E53.8 Deficiency of other specified B group vitamins; K21.9 Gastro-esophageal reflux disease without esophagitis; L40.9 Psoriasis, unspecified; M19.90 Unspecified osteoarthritis, unspecified site; H91.90 Unspecified hearing loss, unspecified ear; G89.29 Other chronic pain; M54.50 Low back pain, unspecified; R33.9 Retention of urine, unspecified; Z99.81 Dependence on supplemental oxygen; Z79.01 Long term (current) use of anticoagulants; Z79.51 Long term (current) use of inhaled steroids; Z79.890 Hormone replacement therapy; Z79.899 Other long term (current) drug therapy; Z86.16 Personal history of COVID-19; Z85.43 Personal history of malignant neoplasm of ovary; Z86.73 Personal history of transient ischemic attack (TIA), and cerebral infarction without residual deficits; Z87.01 Personal history of pneumonia (recurrent); Z86.19 Personal history of other infectious and parasitic diseases; Z87.39 Personal history of other diseases of the musculoskeletal system and connective tissue; Z87.19 Personal history of other diseases of the digestive system; Z90.710 Acquired absence of both cervix and uterus; Z87.891 Personal history of nicotine dependence; Z96.653 Presence of artificial knee joint, bilateral; Z86.011 Personal history of benign neoplasm of the brain; Z86.59 Personal history of other mental and behavioral disorders; Z98.42 Cataract extraction status, left eye; Z98.41 Cataract extraction status, right eye; Z92.3 Personal history of irradiation; Z92.21 Personal history of antineoplastic chemotherapy; Z90.89 Acquired absence of other organs; Z87.2 Personal history of diseases of the skin and subcutaneous tissue; Z98.890 Other specified postprocedural states; Z71.3 Dietary counseling and surveillance; Y84.6 Urinary catheterization as the cause of abnormal reaction of the patient, or of later complication, without mention of misadventure at the time of the procedure; Z88.0 Allergy status to penicillin; Z82.49 Family history of ischemic heart disease and other diseases of the circulatory system; Z82.0 Family history of epilepsy and other diseases of the nervous system
CPT/HCPCS: 36415; 36600; 70450; 71045; 74018; 74019; 74022; 74176; 76770; 80048; 80053; 80076; 81001; 81003; 82607; 82746; 82805; 83036; 83735; 83880; 84132; 84145; 84439; 84443; 84481; 84484; 85025; 85045; 85610; 85730; 86140; 87040; 87077; 87086; 87186; 87502; 87634; 87635; 93308; 94640; 94660; 94760; 96374; 99285

== ENCOUNTER 2021-12-08 15:16 | Inpatient (IN) | payer MEDICARE ==
[2021-12-08] MEDS ORDERED: IPRATROPIUM-ALBUTEROL 3 ML NEB INHALATION STA (15:32)
--- NOTE | 2021-12-08 15:34 | ED ---
General Adult HPI - General Chief complaint: Shortness of Breath Stated complaint: BUD Time Seen by Provider: 12/08/21 15:24 Source: patient, EMS, RN notes reviewed Mode of arrival: EMS Limitations: no limitations - History of Present Illness Initial comments: Patient is a pleasant 86-year-old female presenting to the emergency department difficulty breathing. Onset of symptoms was 3 days ago. Patient unclear whether or not she could've had a fever. Patient amiss to having cough. Patient has had some leg swelling however that is chronic for her. - Related Data Home Medications Medication Instructions Recorded Confirmed Atorvastatin [Lipitor] 40 mg PO HS 08/17/17 12/08/21 DULoxetine HCL [Cymbalta] 20 mg PO HS 10/16/17 12/08/21 Fluticasone Nasal [place] [Flonase 1 spr EA NOSTRIL DAILY PRN 12/12/19 12/08/21 Nasal [place]] Metoprolol Succinate [Toprol XL] 25 mg PO DAILY 12/12/19 12/08/21 rOPINIRole HCL [Requip] 3 mg PO BID 06/15/21 12/08/21 Albuterol Inhaler [Ventolin Hfa 2 puff INHALATION RT-QID PRN 07/17/21 12/08/21 Inhaler] Ascorbic Acid [Vitamin C] 500 mg PO DAILY 08/21/21 12/08/21 Budesonide-Formot 160-4.5 Mcg 2 puff INHALATION RT-BID 08/21/21 12/08/21 [Symbicort 160-4.5 Mcg Inhaler] Cholecalciferol [Vitamin D3 (25 25 mcg PO DAILY 08/21/21 12/08/21 Mcg = 1000 Iu)] Ipratropium-Albuterol Nebulize 3 ml INHALATION RT-QID 08/21/21 12/08/21 [Duoneb 0.5 mg-3 mg/3 ml Soln] acetaZOLAMIDE [Diamox] 250 mg PO DAILY 08/21/21 12/08/21 Cetirizine HCl 10 mg PO DAILY 12/08/21 12/08/21 Famotidine [Pepcid] 20 mg PO DAILY@0600 12/08/21 12/08/21 Furosemide [Lasix] 40 mg PO BID@0600,1400 12/08/21 12/08/21 Levothyroxine Sodium [Synthroid] 75 mcg PO DAILY@0600 12/08/21 12/08/21 Lidocaine/Menthol 1 patch TRANSDERM BID@0600,2200 12/08/21 12/08/21 [Lidocaine-Menthol 4%-1% Patch] Magnesium Hydroxide [Milk of 2,400 mg PO DAILY 12/08/21 12/08/21 Magnesia] Melatonin 2.5 mg PO HS 12/08/21 12/08/21 Pantoprazole [Protonix] 40 mg PO DAILY@0600 12/08/21 12/08/21 Potassium Chloride ER [K-Dur 20] 20 meq PO HS 12/08/21 12/08/21 Previous Rx's Medication Instructions Recorded Albuterol Nebulized [Ventolin 2.5 mg INHALATION RT-QID PRN ml 11/12/21 Nebulized] Apixaban [Eliquis] 2.5 mg PO BID tablet 11/12/21 Cyanocobalamin [Vitamin B-12] 1,000 mcg PO DAILY tab 11/12/21 Docusate [Colace] 100 mg PO DAILY PRN cap 11/12/21 HYDROcodone/APAP 7.5-325MG [[place] 1 tab PO BID PRN #6 tab 11/12/21 7.5-325] Pregabalin [Lyrica] 150 mg PO TID@0600,1400,2200 #6 cap 11/12/21 Ipratropium-Albuterol Nebulize 3 ml INHALATION RT-QID PRN ml 11/19/21 [Duoneb 0.5 mg-3 mg/3 ml Soln] Lactulose [Cephulac] 20 gm PO QID ml 11/19/21 Allergies Allergy/AdvReac Type Severity Reaction Status Date / Time Penicillins Allergy Swelling/it Verified 12/08/21 17:36 lolis Review of Systems ROS Statement: Those systems with pertinent positive or pertinent negative responses have been documented in the HPI. ROS Other: All systems not noted in ROS Statement are negative. Constitutional: Denies: fever Eyes: Denies: eye pain ENT: Denies: ear pain Respiratory: Reports: cough, dyspnea Cardiovascular: Denies: chest pain Endocrine: Denies: fatigue Gastrointestinal: Denies: abdominal pain Genitourinary: Denies: dysuria Musculoskeletal: Denies: back pain Skin: Denies: rash Neurological: Denies: weakness Past Medical History Past Medical History: Atrial Fibrillation, Cancer, Heart Failure, COPD, Fib romyalgia, GERD/Reflux, Hyperlipidemia, Hypertension, Osteoarthritis (OA), Pneumonia, Respiratory Disorder, Skin Disorder, Sleep Apnea/CPAP/BIPAP Additional Past Medical History / Comment(s): Chronic hypoxic and hypercanpnic respiratory failure/obesity hypoventilation syndrome, home O2 at 4L/NC daytime and Bipap at night, past pneumonias and covid pneumonia 05/2021, pulmonary fibrosis, cardiac valve disease, ovarian cancer with surgery/chemo/radiation, benign brain tumor removed, PVCs, chronic back pain/bilateral hips and shoulders, RLS, psoriasis, sacral decub, 1998 Cdiff colitis. History of Any Multi-Drug Resistant Organisms: C-DIFF Date of last positivie culture/infection: stool MDRO Source:: 1998 Past Surgical History: Back Surgery, Heart Catheterization, Hernia Repair, Hysterectomy, Joint Replacement, Tonsillectomy Additional Past Surgical History / Comment(s): Total hysterectomy, incisional hernia with mesh which later became imfected and had exploratory laparatomy/wound vac, back surgeries x2, EGD, colonoscopy, hemorrhoidectomy, loop recorder, brain tumor removed, bilateral total knee arthroplasties, bilateral cataract surgery. Past Anesthesia/Blood Transfusion Reactions: No Reported Reaction Past Psychological History: Depression Smoking Status: Never smoker - Past Family History Father Family Medical History: Myocardial Infarction (NV) Additional Family Medical History / Comment(s): Father of a NV at the age of 56yrs. Mother Additional Family Medical History / Comment(s): parkinson's Sister(s) Family Medical History: Cancer General Exam Limitations: no limitations General appearance: alert, in no apparent distress Head exam: Present: normocephalic Eye exam: Present: normal appearance Neck exam: Present: normal inspection Respiratory exam: Present: wheezes. Absent: respiratory distress Cardiovascular Exam: Present: regular rate, normal rhythm GI/Abdominal exam: Present: soft. Absent: tenderness Extremities exam: Present: pedal edema. Absent: calf tenderness Neurological exam: Present: alert Psychiatric exam: Present: normal affect, normal mood Skin exam: Present: normal color Course Vital Signs 12/08/21 12/08/21 12/08/21 15:17 15:24 16:00 Temperature 99.5 F Pulse Rate 84 Respiratory 22 Rate Blood Pressure 145/73 O2 Sat by Pulse 87 L 96 91 L Oximetry 12/08/21 12/08/21 12/08/21 16:56 17:04 17:07 Temperature Pulse Rate 79 76 80 Respiratory 22 Rate Blood Pressure 142/67 O2 Sat by Pulse 90 L Oximetry EKG Findings - EKG Comments: EKG Findings:: Sinus rhythm at 76. For screening AV block SC of 302. QRS 169. QT 359. QTC 49. Left axis. Right bundle branch block. No acute ST change. Medical Decision Making - Medical Decision Making Patient reevaluated and resting comfortably in bed. Pulse ox 90% on nasal cannula. Patient and family updated on results and plan. she has been paged for admission for Dr. Li. - Lab Data Result diagrams: 12/08/21 16:12 12/08/21 16:12 Lab Results 12/08/21 12/08/21 12/08/21 Range/Units 16:12 16:12 16:12 WBC 3.8 (3.8-10.6) k/uL RBC 3.42 L (3.80-5.40) m/uL Hgb 10.5 L (11.4-16.0) gm/dL Hct 34.9 (34.0-46.0) % MCV 102.3 H (80.0-100.0) fL MCH 30.8 (25.0-35.0) pg MCHC 30.1 L (31.0-37.0) g/dL RDW 14.9 (11.5-15.5) % Plt Count 136 L (150-450) k/uL MPV 9.5 Neutrophils % 73 % Lymphocytes % 14 % Monocytes % 7 % Eosinophils % 2 % Basophils % 1 % Neutrophils # 2.8 (1.3-7.7) k/uL Lymphocytes # 0.5 L (1.0-4.8) k/uL Monocytes # 0.3 (0-1.0) k/uL Eosinophils # 0.1 (0-0.7) k/uL Basophils # 0.0 (0-0.2) k/uL Hypochromasia Marked Macrocytosis Slight PT (9.0-12.0) sec INR (<1.2) APTT (22.0-30.0) sec Sodium (137-145) mmol/L Potassium (3.5-5.1) mmol/L Chloride (98-107) mmol/L Carbon Dioxide (22-30) mmol/L Anion Gap mmol/L BUN (7-17) mg/dL Creatinine (0.52-1.04) mg/dL Est GFR (CKD-EPI)AfAm (>60 ml/min/1.73 sqM) Est GFR (CKD-EPI)NonAf (>60 ml/min/1.73 sqM) Glucose (74-99) mg/dL Plasma Lactic Acid Dandre (0.7-2.0) mmol/L Calcium (8.4-10.2) mg/dL Magnesium (1.6-2.3) mg/dL Total Bilirubin (0.2-1.3) mg/dL AST (14-36) U/L ALT (4-34) U/L Alkaline Phosphatase (38-126) U/L Troponin I (0.000-0.034) ng/mL NT-Pro-B Natriuret Pep pg/mL Total Protein (6.3-8.2) g/dL Albumin (3.5-5.0) g/dL Coronavirus (PCR) Not Detected (Not Detectd) Influenza Type A RNA Not Detected (Not Detectd) Influenza Type B (PCR) Not Detected (Not Detectd) 12/08/21 12/08/21 12/08/21 Range/Units 16:12 16:12 16:12 WBC (3.8-10.6) k/uL RBC (3.80-5.40) m/uL Hgb (11.4-16.0) gm/dL Hct (34.0-46.0) % MCV (80.0-100.0) fL MCH (25.0-35.0) pg MCHC (31.0-37.0) g/dL RDW (11.5-15.5) % Plt Count (150-450) k/uL MPV Neutrophils % % Lymphocytes % % Monocytes % % Eosinophils % % Basophils % % Neutrophils # (1.3-7.7) k/uL Lymphocytes # (1.0-4.8) k/uL Monocytes # (0-1.0) k/uL Eosinophils # (0-0.7) k/uL Basophils # (0-0.2) k/uL Hypochromasia Macrocytosis PT 11.0 (9.0-12.0) sec INR 1.0 (<1.2) APTT 30.2 H (22.0-30.0) sec Sodium 142 (137-145) mmol/L Potassium 3.7 (3.5-5.1) mmol/L Chloride 102 (98-107) mmol/L Carbon Dioxide 35 H (22-30) mmol/L Anion Gap 5 mmol/L BUN 12 (7-17) mg/dL Creatinine 0.73 (0.52-1.04) mg/dL Est GFR (CKD-EPI)AfAm 87 (>60 ml/min/1.73 sqM) Est GFR (CKD-EPI)NonAf 76 (>60 ml/min/1.73 sqM) Glucose 107 H (74-99) mg/dL Plasma Lactic Acid Dandre 0.7 (0.7-2.0) mmol/L Calcium 8.5 (8.4-10.2) mg/dL Magnesium 2.4 H (1.6-2.3) mg/dL Total Bilirubin 0.5 (0.2-1.3) mg/dL AST 20 (14-36) U/L ALT 10 (4-34) U/L Alkaline Phosphatase 88 (38-126) U/L Troponin I (0.000-0.034) ng/mL NT-Pro-B Natriuret Pep pg/mL Total Protein 6.3 (6.3-8.2) g/dL Albumin 3.7 (3.5-5.0) g/dL Coronavirus (PCR) (Not Detectd) Influenza Type A RNA (Not Detectd) Influenza Type B (PCR) (Not Detectd) 12/08/21 12/08/21 Range/Units 16:12 16:12 WBC (3.8-10.6) k/uL RBC (3.80-5.40) m/uL Hgb (11.4-16.0) gm/dL Hct (34.0-46.0) % MCV (80.0-100.0) fL MCH (25.0-35.0) pg MCHC (31.0-37.0) g/dL RDW (11.5-15.5) % Plt Count (150-450) k/uL MPV Neutrophils % % Lymphocytes % % Monocytes % % Eosinophils % % Basophils % % Neutrophils # (1.3-7.7) k/uL Lymphocytes # (1.0-4.8) k/uL Monocytes # (0-1.0) k/uL Eosinophils # (0-0.7) k/uL Basophils # (0-0.2) k/uL Hypochromasia Macrocytosis PT (9.0-12.0) sec INR (<1.2) APTT (22.0-30.0) sec Sodium (137-145) mmol/L Potassium (3.5-5.1) mmol/L Chloride (98-107) mmol/L Carbon Dioxide (22-30) mmol/L Anion Gap mmol/L BUN (7-17) mg/dL Creatinine (0.52-1.04) mg/dL Est GFR (CKD-EPI)AfAm (>60 ml/min/1.73 sqM) Est GFR (CKD-EPI)NonAf (>60 ml/min/1.73 sqM) Glucose (74-99) mg/dL Plasma Lactic Acid Dandre (0.7-2.0) mmol/L Calcium (8.4-10.2) mg/dL Magnesium (1.6-2.3) mg/dL Total Bilirubin (0.2-1.3) mg/dL AST (14-36) U/L ALT (4-34) U/L Alkaline Phosphatase (38-126) U/L Troponin I 0.012 (0.000-0.034) ng/mL NT-Pro-B Natriuret Pep 3920 pg/mL Total Protein (6.3-8.2) g/dL Albumin (3.5-5.0) g/dL Coronavirus (PCR) (Not Detectd) Influenza Type A RNA (Not Detectd) Influenza Type B (PCR) (Not Detectd) - Radiology Data Radiology results: image reviewed (Pulmonary edema) Disposition Clinical Impression: Acute exacerbation of chronic obstructive pulmonary disease, CHF (congestive heart failure) Disposition: ADMITTED IP TO THIS HOSP Is patient prescribed a controlled substance at d/c from ED?: No Referrals: Jerome Li MD [Primary Care Provider] - 1-2 days Time of Disposition: 18:00
[2021-12-08 16:24] LABS: Basophils % (A) 1 %; Eosinophils # (A) 0.1 k/uL (0-0.7); Eosinophils % (A) 2 %; HCT 34.9 % (34.0-46.0); HGB 10.5 gm/dL (11.4-16.0); Hypochromasia Marked; Lymphocytes # (A) 0.5 k/uL (1.0-4.8); Lymphocytes % (A) 14 %; MCH 30.8 pg (25.0-35.0); MCHC 30.1 g/dL (31.0-37.0); MCV 102.3 fL (80.0-100.0); Macrocytosis Slight; Mean Platelet Volume 9.5; Monocytes # (A) 0.3 k/uL (0-1.0); Monocytes % (A) 7 %; Neutrophils # (A) 2.8 k/uL (1.3-7.7); Neutrophils % (A) 73 %; Platelet Count 136 k/uL (150-450); RBC 3.42 m/uL (3.80-5.40); RDW 14.9 % (11.5-15.5); WBC 3.8 k/uL (3.8-10.6)
[2021-12-08 16:28] LABS: Partial Thromboplastin Time 30.2 sec (22.0-30.0)
[2021-12-08 16:30] LABS: Albumin 3.7 g/dL (3.5-5.0); Calcium 8.5 mg/dL (8.4-10.2); Magnesium 2.4 mg/dL (1.6-2.3); Potassium 3.7 mmol/L (3.5-5.1); Total Bilirubin 0.5 mg/dL (0.2-1.3); Total Protein 6.3 g/dL (6.3-8.2)
--- NOTE | 2021-12-08 17:26 | XR ---
EXAMINATION TYPE: XR chest 2V DATE OF EXAM: 12/08/2021 COMPARISON: 11/14/2021 HISTORY: Difficulty breathing TECHNIQUE: 2 views FINDINGS: There is pulmonary interstitial and airspace edema. There are chest leads. Heart is enlarge d. There is neural stimulator in the thoracic spine. There is some patchy atelectasis in the lung fie lds. IMPRESSION: There is pulmonary edema that could be congestive heart failure that is increased compared to old exa m. Mild patchy bilateral atelectasis.
[2021-12-08] MEDS ORDERED: IPRATROPIUM-ALBUTEROL 3 ML NEB INHALATION PRN (18:01)
[2021-12-08] MEDS ORDERED: ASPIRIN 325 MG TAB PO STA (18:01)
[2021-12-08] MEDS: FUROSEMIDE 10 MG/ML 4 ML VIAL IV SCH (19:22)
[2021-12-08] MEDS: methylPREDNISolone SOD SUCCI 125 MG/2 ML VIAL IV SCH ×2 (19:23→23:32)
[2021-12-08 20:53] LABS: Glucose,Whole Blood 109 mg/dL (75-99)
[2021-12-08] MEDS: IPRATROPIUM-ALBUTEROL 3 ML NEB INHALATION SCH (21:21)
[2021-12-08] MEDS: DULoxetine HCL 20 MG CAPSULE.DR PO SCH (22:55)
[2021-12-08] MEDS: POTASSIUM CHLORIDE ER 20 MEQ TAB.ER PO SCH (22:55)
[2021-12-08] MEDS: APIXABAN 2.5 MG TABLET PO SCH (22:55)
[2021-12-08] MEDS: MELATONIN 5 MG TABLET PO SCH (22:55)
[2021-12-08] MEDS: ATORVASTATIN 40 MG TAB PO SCH (22:55)
[2021-12-08] MEDS: PREGABALIN 75 MG CAP PO SCH (22:55)
[2021-12-08] MEDS: NITROGLYCERIN OINT 1 INCH/GM PACKET TOPICAL SCH (23:33)
[2021-12-09] MEDS: FUROSEMIDE 10 MG/ML 4 ML VIAL IV SCH ×2 (05:30→16:59)
[2021-12-09] MEDS: methylPREDNISolone SOD SUCCI 125 MG/2 ML VIAL IV SCH (05:30)
[2021-12-09] MEDS: PREGABALIN 75 MG CAP PO SCH ×3 (05:31→21:13)
[2021-12-09 05:48] LABS: Glucose,Whole Blood 140 mg/dL (75-99)
[2021-12-09] MEDS: IPRATROPIUM-ALBUTEROL 3 ML NEB INHALATION SCH ×4 (08:44→19:50)
[2021-12-09] MEDS ORDERED: ASPIRIN 325 MG TAB PO SCH (09:00)
[2021-12-09] MEDS: APIXABAN 2.5 MG TABLET PO SCH ×2 (09:02→21:13)
[2021-12-09] MEDS: NITROGLYCERIN OINT 1 INCH/GM PACKET TOPICAL SCH (09:02)
[2021-12-09] MEDS ORDERED: ALBUTEROL HFA INHALER INHALATION PRN (10:13)
[2021-12-09] MEDS ORDERED: DOCUSATE 100 MG CAP PO PRN (10:13)
--- NOTE | 2021-12-09 11:29 | P.HPIM ---
History of Present Illness Patient is a pleasant 86-year-old female with known history of COPD, chronic diastolic dysfunction, moderate pulmonary hypertension, on the 3 L of oxygen as an outpatient came in with the shortness of breath. Patient is a alf resident unable to bring up her oxygen saturation. She is currently on 6 L of oxygen. Patient has wheezing on exam chest x-ray showed pulmonary edema. Patient denied any fever chills patient was having cough with mild hemoptysis. She usually uses BiPAP at nighttime. Apparently patient was confused yesterday REVIEW OF SYSTEMS: CONSTITUTIONAL: No fever, no malaise, no fatigue. HEENT: No recent visual problems or hearing problems. Denied any sore throat. CARDIOVASCULAR: No chest pain, no palpitations, no syncope. PULMONARY: As mentioned in HPI GASTROINTESTINAL: No diarrhea, no nausea, no vomiting, no abdominal pain. NEUROLOGICAL: No headaches, no weakness, no numbness. HEMATOLOGICAL: Denies any bleeding or petechiae. GENITOURINARY: Denies any burning micturition, frequency, or urgency. MUSCULOSKELETAL/RHEUMATOLOGICAL: Denies any joint pain, swelling, or any muscle pain. ENDOCRINE: Denies any polyuria or polydipsia. The rest of the 14-point review of systems is negative. PHYSICAL EXAMINATION: GENERAL: The patient is alert and oriented x3, not in any acute distress. Obese HEENT: Pupils are round and equally reacting to light. EOMI. No scleral icterus. No conjunctival pallor. Normocephalic, atraumatic. No pharyngeal erythema. No thyromegaly. CARDIOVASCULAR: S1 and S2 present. No rubs, or gallops-grade 4/6 systolic murmur in the aortic area. PULMONARY: Significant expiratory wheezing, ABDOMEN: Soft, nontender, nondistended, normoactive bowel sounds. No palpable organomegaly. MUSCULOSKELETAL: No joint swelling or deformity. EXTREMITIES: No cyanosis, clubbing, bilateral lower extremity pedal edema NEUROLOGICAL: Gross neurological examination did not reveal any focal deficits. SKIN: No rashes. Assessment and plan -Acute on chronic hypoxic and hypercapnic respiratory failure secondary to CHF as well as COPD exacerbation patient will be continued on IV Lasix continue with the systemic steroids but will cut down the dose and frequency. -Hemoptysis secondary to bronchitis -Congestive heart failure chronic diastolic dysfunction with acute exacerbation -Metabolic encephalopathy probably secondary to hypercapnia which improved at this time -2 bradycardia with acute exacerbation [place]-obstructive sleep apnea and uses a CPAP at nighttime liters of oxygen at during the day -Obesity -History of atrial fibrillation probably paroxysmal rate controlled at this time -Hypertension -Moderate pulmonary hypertension -Hyperlipidemia Hypertension hypothyroidism -Depression -Metabolic acidosis secondary to hypercapnia, metabolic acidosis is chronic chronic DVT prophylaxis: Patient is on Eliquis Past Medical History Past Medical History: Atrial Fibrillation, Cancer, Heart Failure, COPD, Fibromyalgia, GERD/Reflux, Hyperlipidemia, Hypertension, Osteoarthritis (OA), Pneumonia, Respiratory Disorder, Skin Disorder, Sleep Apnea/CPAP/BIPAP Additional Past Medical History / Comment(s): Chronic hypoxic and hypercanpnic respiratory failure/obesity hypoventilation syndrome, home O2 at 4L/NC daytime and Bipap at night, past pneumonias and covid pneumonia 05/2021, pulmonary fibrosis, cardiac valve disease, ovarian cancer with surgery/chemo/radiation, benign brain tumor removed, PVCs, chronic back pain/bilateral hips and shoulders, RLS, psoriasis, sacral decub, 1998 Cdiff colitis. History of Any Multi-Drug Resistant Organisms: C-DIFF Date of last positivie culture/infection: stool MDRO Source:: 1998 Past Surgical History: Back Surgery, Heart Catheterization, Hernia Repair, Hyst erectomy, Joint Replacement, Tonsillectomy Additional Past Surgical History / Comment(s): Total hysterectomy, incisional hernia with mesh which later became imfected and had exploratory laparatomy/wound vac, back surgeries x2, EGD, colonoscopy, hemorrhoidectomy, loop recorder, brain tumor removed, bilateral total knee arthroplasties, bilateral cataract surgery. Past Anesthesia/Blood Transfusion Reactions: No Reported Reaction Past Psychological History: Depression Additional Psychological History / Comment(s): Pt resides with her spouse. She [facility]. She has been having difficulty with ambulation, uses a walker. She has home oxygen and bipap. Her ronel states she uses a wheelchair van now d/t too difficult getting pt in and out of house. Smoking Status: Never smoker Past Alcohol Use History: Rare Past Drug Use History: None Reported - Past Family History Father Family Medical History: Myocardial Infarction ([place]) Additional Family Medical History / Comment(s): Father of a [place] at the age of 56yrs. Mother Additional Family Medical History / Comment(s): parkinson's Sister(s) Family Medical History: Cancer Medications and Allergies Home Medications Medication Instructions Recorded Confirmed Type Atorvastatin [Lipitor] 40 mg PO HS 08/17/17 12/08/21 History DULoxetine HCL [Cymbalta] 20 mg PO HS 10/16/17 12/08/21 History Fluticasone Nasal [place] [Flonase 1 spr EA NOSTRIL DAILY PRN 12/12/19 12/08/21 History Nasal [place]] Metoprolol Succinate [Toprol XL] 25 mg PO DAILY 12/12/19 12/08/21 History rOPINIRole HCL [Requip] 3 mg PO BID 06/15/21 12/08/21 History Albuterol Inhaler [Ventolin Hfa 2 puff INHALATION RT-QID PRN 07/17/21 12/08/21 History Inhaler] Ascorbic Acid [Vitamin C] 500 mg PO DAILY 08/21/21 12/08/21 History Budesonide-Formot 160-4.5 Mcg 2 puff INHALATION RT-BID 08/21/21 12/08/21 History [Symbicort 160-4.5 Mcg Inhaler] Cholecalciferol [Vitamin D3 (25 25 mcg PO DAILY 08/21/21 12/08/21 History Mcg = 1000 Iu)] Ipratropium-Albuterol Nebulize 3 ml INHALATION RT-QID 08/21/21 12/08/21 History [Duoneb 0.5 mg-3 mg/3 ml Soln] acetaZOLAMIDE [Diamox] 250 mg PO DAILY 08/21/21 12/08/21 History Albuterol Nebulized [Ventolin 2.5 mg INHALATION RT-QID PRN ml 11/12/21 12/08/21 Rx Nebulized] Apixaban [Eliquis] 2.5 mg PO BID tablet 11/12/21 12/08/21 Rx Cyanocobalamin [Vitamin B-12] 1,000 mcg PO DAILY tab 11/12/21 12/08/21 Rx Docusate [Colace] 100 mg PO DAILY PRN cap 11/12/21 12/08/21 Rx HYDROcodone/APAP 7.5-325MG [[place] 1 tab PO BID PRN #6 tab 11/12/21 12/08/21 Rx 7.5-325] Pregabalin [Lyrica] 150 mg PO TID@0600,1400,2200 #6 cap 11/12/21 12/08/21 Rx Ipratropium-Albuterol Nebulize 3 ml INHALATION RT-QID PRN ml 11/19/21 12/08/21 Rx [Duoneb 0.5 mg-3 mg/3 ml Soln] Lactulose [Cephulac] 20 gm PO QID ml 11/19/21 12/08/21 Rx Cetirizine HCl 10 mg PO DAILY 12/08/21 12/08/21 History Famotidine [Pepcid] 20 mg PO DAILY@0600 12/08/21 12/08/21 History Furosemide [Lasix] 40 mg PO BID@0600,1400 12/08/21 12/08/21 History Levothyroxine Sodium [Synthroid] 75 mcg PO DAILY@0600 12/08/21 12/08/21 History Lidocaine/Menthol 1 patch TRANSDERM BID@0600,2200 12/08/21 12/08/21 History [Lidocaine-Menthol 4%-1% Patch] Magnesium Hydroxide [Milk of 2,400 mg PO DAILY 12/08/21 12/08/21 History Magnesia] Melatonin 2.5 mg PO HS 12/08/21 12/08/21 History Pantoprazole [Protonix] 40 mg PO DAILY@0600 12/08/21 12/08/21 History Potassium Chloride ER [K-Dur 20] 20 meq PO HS 12/08/21 12/08/21 History Allergies Allergy/AdvReac Type Severity Reaction Status Date / Time Penicillins Allergy Swelling/it Verified 12/08/21 17:36 lolis Physical Exam Vitals: Vital Signs Temp Pulse Pulse Resp BP BP Pulse Ox 12/09/21 08:58 62 12/09/21 08:45 61 12/09/21 08:00 97.7 F 61 16 150/73 93 L 12/09/21 04:00 97.6 F 60 20 151/79 95 12/09/21 01:54 20 12/09/21 00:00 97.6 F 60 20 154/78 96 12/08/21 22:00 98.2 F 70 20 114/71 93 L 12/08/21 20:36 98.2 F 70 20 114/71 93 L 12/08/21 19:21 75 18 119/56 92 L 12/08/21 17:07 80 12/08/21 17:04 76 22 142/67 90 L 12/08/21 16:56 79 12/08/21 16:00 91 L 12/08/21 15:24 96 12/08/21 15:17 99.5 F 84 22 145/73 87 L Intake and Output 12/08/21 12/09/21 12/09/21 22:59 06:59 14:59 Intake Total 240 420 Output Total 1000 1250 Balance -760 -1250 420 Intake: Oral 240 420 Output: Urine 1000 1250 Other: Voiding Method External Catheter External Catheter Weight 116.437 kg 96 kg Results CBC & Chem 7: 12/08/21 16:12 12/08/21 16:12 Labs: Abnormal Lab Results - Last 24 Hours (Table) 12/08/21 12/08/21 12/08/21 Range/Units 16:12 16:12 16:12 RBC 3.42 L (3.80-5.40) m/uL Hgb 10.5 L (11.4-16.0) gm/dL MCV 102.3 H (80.0-100.0) fL MCHC 30.1 L (31.0-37.0) g/dL Plt Count 136 L (150-450) k/uL Lymphocytes # 0.5 L (1.0-4.8) k/uL APTT 30.2 H (22.0-30.0) sec Carbon Dioxide 35 H (22-30) mmol/L Glucose 107 H (74-99) mg/dL POC Glucose (mg/dL) (75-99) mg/dL Magnesium 2.4 H (1.6-2.3) mg/dL 12/08/21 12/09/21 Range/Units 20:43 05:44 RBC (3.80-5.40) m/uL Hgb (11.4-16.0) gm/dL MCV (80.0-100.0) fL MCHC (31.0-37.0) g/dL Plt Count (150-450) k/uL Lymphocytes # (1.0-4.8) k/uL APTT (22.0-30.0) sec Carbon Dioxide (22-30) mmol/L Glucose (74-99) mg/dL POC Glucose (mg/dL) 109 H 140 H (75-99) mg/dL Magnesium (1.6-2.3) mg/dL Thrombosis Risk Factor Assmnt - Choose All That Apply Each Factor Represents 1 point: Obesity (BMI >25), Swollen legs (current) Each Risk Factor Represents 3 Points: Age 75 years or older Thrombosis Risk Factor Assessment Total Risk Factor Score: 5 Thrombosis Risk Factor Assessment Level: High Risk
[2021-12-09 11:38] LABS: Glucose,Whole Blood 131 mg/dL (75-99)
[2021-12-09] MEDS: LACTULOSE 20 GM/30 ML CUP PO SCH ×3 (13:05→21:13)
[2021-12-09 13:15] VITALS: BMI 38.7
--- NOTE | 2021-12-09 13:27 | P.CRDCN ---
History of Present Illness Consult date: 12/09/21 History of present illness: HISTORY OF PRESENT ILLNESS: This is a 86-year-old female with a past medical history significant for aortic stenosis, congestive heart failure, paroxysmal atrial fibrillation, obstructive sleep apnea, and COPD with home oxygen use. Patient follows in the office with Dr. Watts. We have been asked to see the patient in consultation for congestive heart failure. Patient examined at the bedside. The patient states s he presented to the hospital secondary to shortness of breath. She states she has been feeling short of breath for the past 2-3 days. She also reports frequent coughing with no sputum production. She states she has been compliant at home with her medications and her heart failure diet. The patient was found to be in acute CHF in the emergency room and she was started on IV Lasix. * EKG reveals sinus mechanism with first-degree AV block. Right bundle branch block. Left anterior fascicular block. * Chest xray pulmonary edema that could be congestive heart failure that is increased compared to old exam. Mild patchy bilateral atelectasis. * Laboratory data: WBC 3.8. Hemoglobin 10.5. Platelet count 136. Sodium 142. Potassium 3.7. BUN 12. Creatinine 0.73. ProBNP 3920. Troponin negative 1. * Current home cardiac medications include Eliquis 2.5 mg twice a day, Lipitor 40 mg at night, Lasix 40 mg twice a day, metoprolol succinate 25 mg daily, Diamox 250 mg daily * Most recent echocardiogram obtained in October 2021 revealed ejection fraction 55-60% with moderate aortic stenosis * Cardiac catheterization history: January 2011 revealing 30% proximal LAD stenosis REVIEW OF SYSTEMS: At the time of my exam: CONSTITUTIONAL: Denies fever or chills. HEENT: Denies blurred vision, vision changes, or eye pain. Denies hemoptysis CARDIOVASCULAR: Denies chest pain. Denies orthopnea. Denies PND. Denies palpitations RESPIRATORY: Denies shortness of breath. GASTROINTESTINAL: Denies abdominal pain. Denies nausea or vomiting. HEMATOLOGIC: Denies bleeding disorders. GENITOURINARY: Denies any blood in urine. SKIN: Denies pruitis. Denies rash. PHYSICAL EXAM: VITAL SIGNS: Reviewed. GENERAL: Well-developed in no acute distress. HEENT: Head is normocephalic. Pupils are equal, round. Sclerae anicteric. Mucous membranes of the mouth are moist. Neck supple. No JVD or thyromegaly LUNGS: Respirations even and unlabored. Lungs diminished with expiratory wheezing noted. HEART: Regular rate and rhythm. S1 and S2 heard. Systolic murmur noted ABDOMEN: Soft. Nondistended. Nontender. EXTREMITIES: Normal range of motion. No clubbing or cyanosis. Peripheral pulses intact. Bilateral lower extremity edema noted with Don wraps to both leg s. NEUROLOGIC: Awake and alert. Oriented x 3. ASSESSMENT: Shortness of breath COPD exacerbation Acute on chronic congestive heart failure with preserved ejection fraction Acute on chronic hypercapnic and hypoxic respiratory failure Paroxysmal atrial fibrillation Aortic stenosis Obstructive sleep apnea Hypertension Hyperlipidemia Hypothyroidism PLAN: No need to repeat echocardiogram as this was performed in October 2021 Resume home cardiac medications Continue anticoagulation with Eliquis Continue IV Lasix Monitor kidney function Daily weight Accurate I&O Further recommendations pending patient's course Nurse practitioner note has been reviewed by physician. Signing provider agrees with the documented findings, assessment, and plan of care. Past Medical History Past Medical History: Atrial Fibrillation, Cancer, Heart Failure, COPD, Fibromyalgia, GERD/Reflux, Hyperlipidemia, Hypertension, Osteoarthritis (OA), Pneumonia, Respiratory Disorder, Skin Disorder, Sleep Apnea/CPAP/BIPAP Additional Past Medical History / Comment(s): Chronic hypoxic and hypercanpnic respiratory failure/obesity hypoventilation syndrome, home O2 at 4L/NC daytime and Bipap at night, past pneumonias and covid pneumonia 05/2021, pulmonary fibrosis, cardiac valve disease, ovarian cancer with surgery/chemo/radiation, benign brain tumor removed, PVCs, chronic back pain/bilateral hips and shoulders, RLS, psoriasis, sacral decub, 1998 Cdiff colitis. History of Any Multi-Drug Resistant Organisms: C-DIFF Date of last positivie culture/infection: stool MDRO Source:: 1998 Past Surgical History: Back Surgery, Heart Catheterization, Hernia Repair, Hysterectomy, Joint Replacement, Tonsillectomy Additional Past Surgical History / Comment(s): Total hysterectomy, incisional hernia with mesh which later became imfected and had exploratory laparatomy/wound vac, back surgeries x2, EGD, colonoscopy, hemorrhoidectomy, loop recorder, brain tumor removed, bilateral total knee arthroplasties, bilateral cataract surgery. Past Anesthesia/Blood Transfusion Reactions: No Reported Reaction Past Psychological History: Depression Additional Psychological History / Comment(s): Pt resides with her spouse. She has [facility]. She has been having difficulty with ambulation, uses a walker. She has home oxygen and bipap. Her ronel states she uses a wheelchair van now d/t too difficult getting pt in and out of house. Smoking Status: Never smoker Past Alcohol Use History: Rare Past Drug Use History: None Reported - Past Family History Father Family Medical History: Myocardial Infarction ([place]) Additional Family Medical History / Comment(s): Father of a [place] at the age of 56yrs. Mother Additional Family Medical History / Comment(s): parkinson's Sister(s) Family Medical History: Cancer Medications and Allergies Home Medications Medication Instructions Recorded Confirmed Type Atorvastatin [Lipitor] 40 mg PO HS 08/17/17 12/08/21 History DULoxetine HCL [Cymbalta] 20 mg PO HS 10/16/17 12/08/21 History Fluticasone Nasal [place] [Flonase 1 spr EA NOSTRIL DAILY PRN 12/12/19 12/08/21 History Nasal [place]] Metoprolol Succinate [Toprol XL] 25 mg PO DAILY 12/12/19 12/08/21 History rOPINIRole HCL [Requip] 3 mg PO BID 06/15/21 12/08/21 History Albuterol Inhaler [Ventolin Hfa 2 puff INHALATION RT-QID PRN 07/17/21 12/08/21 History Inhaler] Ascorbic Acid [Vitamin C] 500 mg PO DAILY 08/21/21 12/08/21 History Budesonide-Formot 160-4.5 Mcg 2 puff INHALATION RT-BID 08/21/21 12/08/21 History [Symbicort 160-4.5 Mcg Inhaler] Cholecalciferol [Vitamin D3 (25 25 mcg PO DAILY 08/21/21 12/08/21 History Mcg = 1000 Iu)] Ipratropium-Albuterol Nebulize 3 ml INHALATION RT-QID 08/21/21 12/08/21 History [Duoneb 0.5 mg-3 mg/3 ml Soln] acetaZOLAMIDE [Diamox] 250 mg PO DAILY 08/21/21 12/08/21 History Albuterol Nebulized [Ventolin 2.5 mg INHALATION RT-QID PRN ml 11/12/21 12/08/21 Rx Nebulized] Apixaban [Eliquis] 2.5 mg PO BID tablet 11/12/21 12/08/21 Rx Cyanocobalamin [Vitamin B-12] 1,000 mcg PO DAILY tab 11/12/21 12/08/21 Rx Docusate [Colace] 100 mg PO DAILY PRN cap 11/12/21 12/08/21 Rx HYDROcodone/APAP 7.5-325MG [[place] 1 tab PO BID PRN #6 tab 11/12/21 12/08/21 Rx 7.5-325] Pregabalin [Lyrica] 150 mg PO TID@0600,1400,2200 #6 cap 11/12/21 12/08/21 Rx Ipratropium-Albuterol Nebulize 3 ml INHALATION RT-QID PRN ml 11/19/21 12/08/21 Rx [Duoneb 0.5 mg-3 mg/3 ml Soln] Lactulose [Cephulac] 20 gm PO QID ml 11/19/21 12/08/21 Rx Cetirizine HCl 10 mg PO DAILY 12/08/21 12/08/21 History Famotidine [Pepcid] 20 mg PO DAILY@0600 12/08/21 12/08/21 History Furosemide [Lasix] 40 mg PO BID@0600,1400 12/08/21 12/08/21 History Levothyroxine Sodium [Synthroid] 75 mcg PO DAILY@0600 12/08/21 12/08/21 History Lidocaine/Menthol 1 patch TRANSDERM BID@0600,2200 12/08/21 12/08/21 History [Lidocaine-Menthol 4%-1% Patch] Magnesium Hydroxide [Milk of 2,400 mg PO DAILY 12/08/21 12/08/21 History Magnesia] Melatonin 2.5 mg PO HS 12/08/21 12/08/21 History Pantoprazole [Protonix] 40 mg PO DAILY@0600 12/08/21 12/08/21 History Potassium Chloride ER [K-Dur 20] 20 meq PO HS 12/08/21 12/08/21 History Allergies Allergy/AdvReac Type Severity Reaction Status Date / Time Penicillins Allergy Swelling/it Verified 12/08/21 17:36 lolis Physical Exam Vitals: Vital Signs Temp Pulse Pulse Resp BP BP Pulse Ox 12/09/21 12:27 66 12/09/21 12:19 67 12/09/21 12:00 65 16 107/61 96 12/09/21 08:58 62 12/09/21 08:45 61 12/09/21 08:00 97.7 F 61 16 150/73 93 L 12/09/21 04:00 97.6 F 60 20 151/79 95 12/09/21 01:54 20 12/09/21 00:00 97.6 F 60 20 154/78 96 12/08/21 22:00 98.2 F 70 20 114/71 93 L 12/08/21 20:36 98.2 F 70 20 114/71 93 L 12/08/21 19:21 75 18 119/56 92 L 12/08/21 17:07 80 12/08/21 17:04 76 22 142/67 90 L 12/08/21 16:56 79 12/08/21 16:00 91 L 12/08/21 15:24 96 12/08/21 15:17 99.5 F 84 22 145/73 87 L Intake and Output 12/08/21 12/09/21 12/09/21 22:59 06:59 14:59 Intake Total 240 420 Output Total 1000 1250 Balance -760 -1250 420 Intake: Oral 240 420 Output: Urine 1000 1250 Other: Voiding Method External Catheter External Catheter External Catheter Weight 116.437 kg 96 kg 96 kg Results 12/08/21 16:12 12/08/21 16:12 Cardiac Enzymes 12/08/21 12/08/21 Range/Units 16:12 16:12 AST 20 (14-36) U/L Troponin I 0.012 (0.000-0.034) ng/mL Coagulation 12/08/21 Range/Units 16:12 PT 11.0 (9.0-12.0) sec APTT 30.2 H (22.0-30.0) sec CBC 12/08/21 Range/Units 16:12 WBC 3.8 (3.8-10.6) k/uL RBC 3.42 L (3.80-5.40) m/uL Hgb 10.5 L (11.4-16.0) gm/dL Hct 34.9 (34.0-46.0) % Plt Count 136 L (150-450) k/uL Comprehensive Metabolic Panel 12/08/21 Range/Units 16:12 Sodium 142 (137-145) mmol/L Potassium 3.7 (3.5-5.1) mmol/L Chloride 102 (98-107) mmol/L Carbon Dioxide 35 H (22-30) mmol/L BUN 12 (7-17) mg/dL Creatinine 0.73 (0.52-1.04) mg/dL Glucose 107 H (74-99) mg/dL Calcium 8.5 (8.4-10.2) mg/dL AST 20 (14-36) U/L ALT 10 (4-34) U/L Alkaline Phosphatase 88 (38-126) U/L Total Protein 6.3 (6.3-8.2) g/dL Albumin 3.7 (3.5-5.0) g/dL Current Medications Generic Name Dose Route Start Last Admin Trade Name Freq PRN Reason Stop Dose Admin Hydrocodone Bitart/Acetaminophen 1 each 12/08/21 22:06 Hydrocodone/Apap 7.5-325mg 1 Each Tab PO BID PRN Pain Acetazolamide 250 mg 12/10/21 09:00 Acetazolamide 250 Mg Tab PO DAILY RONY Albuterol/Ipratropium 3 ml 12/08/21 20:00 12/09/21 12:19 Ipratropium-Albuterol 3 Ml Neb INHALATION 3 ml RT-QID RONY Administration Albuterol/Ipratropium 3 ml 12/08/21 18:01 Ipratropium-Albuterol 3 Ml Neb INHALATION RT-Q4H PRN Shortness Of Breath Or Wheezing Apixaban 2.5 mg 12/08/21 22:15 12/09/21 09:02 Apixaban 2.5 Mg Tablet PO 2.5 mg BID RONY Administration Protocol Atorvastatin Calcium 40 mg 12/08/21 22:15 12/08/21 22:55 Atorvastatin 40 Mg Tab PO 40 mg HS RONY Administration Budesonide/Formoterol Fumarate 2 puff 12/09/21 20:00 Symbicort 160-4.5 Mcg Inhaler INHALATION RT-BID RONY Cholecalciferol 25 mcg 12/10/21 09:00 Cholecalciferol 25 Mcg (1000 Iu) Tablet PO DAILY [facility] Docusate Sodium 100 mg 12/09/21 10:13 Docusate 100 Mg Cap PO DAILY PRN Constipation Duloxetine HCl 20 mg 12/08/21 22:30 12/08/21 22:55 Duloxetine Hcl 20 Mg Capsule.Dr PO 20 mg HS RONY Administration Famotidine 20 mg 12/10/21 06:00 Famotidine 20 Mg Tab PO DAILY@0600 [facility] Furosemide 40 mg 12/09/21 16:00 Furosemide 10 Mg/Ml 4 Ml Vial IV Q8HR RONY Lactulose 20 gm 12/09/21 13:00 12/09/21 13:05 Lactulose 20 Gm/30 Ml Cup PO 20 gm QID RONY Administration Levothyroxine Sodium 75 mcg 12/10/21 06:00 Levothyroxine 75 Mcg Tab PO DAILY@0600 [facility] Loratadine 10 mg 12/10/21 09:00 Loratadine 10 Mg Tab PO DAILY [facility] Melatonin 2.5 mg 12/08/21 22:15 12/08/21 22:55 Melatonin 5 Mg Tablet PO 2.5 mg HS RONY Administration Methylprednisolone Sodium Succinate 40 mg 12/09/21 21:00 Methylprednisolone Sod Succi 40 Mg/Ml 1 Ml Vial IV BID RONY Metoprolol Succinate 25 mg 12/10/21 09:00 Metoprolol Succinate (Er) 25 Mg Tab.Er.24h PO DAILY [facility] Non-Formulary Medication 1 patch 12/09/21 22:00 Lidocaine/Menthol [Lidocaine-Menthol 4%-1% Patch] TRANSDERM BID@0600,2200 [facility] Potassium Chloride 20 meq 12/08/21 22:15 12/08/21 22:55 Potassium Chloride Er 20 Meq Tab.Er PO 20 meq HS RONY Administration Pregabalin 150 mg 12/08/21 22:30 12/09/21 13:05 Pregabalin 75 Mg Cap PO 150 mg TID@0600,1400,2200 RONY Administration Ropinirole HCl 3 mg 12/08/21 22:15 12/09/21 09:02 Ropinirole Hcl 1 Mg Tab PO 3 mg BID RONY Administration Sodium Chloride 10 ml 12/08/21 21:00 12/09/21 09:07 Sodium Chloride 0.9% Flush 10 Ml Syringe IV 10 ml BID RONY Administration Intake and Output 12/08/21 12/09/21 12/09/21 22:59 06:59 14:59 Intake Total 240 420 Output Total 1000 1250 Balance -760 -1250 420 Intake: Oral 240 420 Output: Urine 1000 1250 Other: Voiding Method External Catheter External Catheter External Catheter Weight 116.437 kg 96 kg 96 kg Patient Weight 12/10/21 06:59 Weight 96 kg 12/08/21 16:12 12/08/21 16:12
[2021-12-09 16:23] LABS: Glucose,Whole Blood 135 mg/dL (75-99)
--- NOTE | 2021-12-09 16:42 | P.CNPUL ---
History of Present Illness Consult date: 12/09/21 Requesting physician: Corina Garcia Reason for consult: dyspnea Chief complaint: Shortness of breath, worsening peripheral edema History of present illness: This 86-year-old female patient with past medical history of COPD on home oxygen, history of COVID 19 pneumonia in May 2021, chronic CHF, chronic atrial fibrillation, prior history of CVA/TIA, sleep apnea, lifetime nonsmoker, previous episode of pneumonia, history of ovarian cancer with surgery and chemoradiation, chronic pain syndrome with chronic back pain and bilateral hip and shoulder pain. Patient used to wear 3 L of oxygen on a regular basis for history of COPD however lately she had been up to 6 L on a regular basis. Patient's daughter is at the bedside and is providing history of present illness. On 12/08/2021 patient came into the emergency department by EMS for evaluation of worsening shortness of breath, a cough, and lower extremity swelling. Denied any fever or chills. Her chest x-ray showed a pulmonary edema, and mild patchy bilateral atelectasis. Blood work has been reviewed, showing white blood cell count of 3.8, hemoglobin of 10.5, CO2 is 35 with a respiratory left with the renal profile unremarkable, LFTs were within normal limits, lactic acid 0.7, proBNP was 3920, troponin was negative at 0.012, patient tested negative for COVID 19, influenza A and B. Patient was started on IV Lasix 40 mg every 12 hours, nebulized bronchodilators, she continues on an requests for history of chronic atrial fibrillation. And she is started on IV Solu-Medrol 40 mg twice daily. Patient is a -2000 and the net fluid balance over the last 24 hours, further extremities have an Don wrapped, she has 1+ to 2+ lower extremity and pedal edema. Patient is currently on 6 L of oxygen the pulse ox of 96%. Review of Systems All systems: negative Constitutional: Denies chills, Denies fever Eyes: denies blurred vision, denies pain Ears, nose, mouth and throat: Denies headache, Denies sore throat Cardiovascular: Denies chest pain, Denies shortness of breath Respiratory: Reports dyspnea, Denies cough Gastrointestinal: Denies abdominal pain, Denies diarrhea, Denies nausea, Denies vomiting Genitourinary: Denies dysuria, Denies hematuria Musculoskeletal: Denies myalgias Integumentary: Denies pruritus, Denies rash Neurological: Denies numbness, Denies weakness Psychiatric: Denies anxiety, Denies depression Endocrine: Denies fatigue, Denies weight change Past Medical History Past Medical History: Atrial Fibrillation, Cancer, Heart Failure, COPD, Fibromyalgia, GERD/Reflux, Hyperlipidemia, Hypertension, Osteoarthritis (OA), Pneumonia, Respiratory Disorder, Skin Disorder, Sleep Apnea/CPAP/BIPAP Additional Past Medical History / Comment(s): Chronic hypoxic and hypercanpnic respiratory failure/obesity hypoventilation syndrome, home O2 at 4L/NC daytime and Bipap at night, past pneumonias and covid pneumonia 05/2021, pulmonary fibrosis, cardiac valve disease, ovarian cancer with surgery/chemo/radiation, benign brain tumor removed, PVCs, chronic back pain/bilateral hips and shoulders, RLS, psoriasis, sacral decub, 1998 Cdiff colitis. History of Any Multi-Drug Resistant Organisms: C-DIFF Date of last positivie culture/infection: stool MDRO Source:: 1998 Past Surgical History: Back Surgery, Heart Catheterization, Hernia Repair, Hysterectomy, Joint Replacement, Tonsillectomy Additional Past Surgical History / Comment(s): Total hysterectomy, incisional hernia with mesh which later became imfected and had exploratory laparatomy/wound vac, back surgeries x2, EGD, colonoscopy, hemorrhoidectomy, loop recorder, brain tumor removed, bilateral total knee arthroplasties, bilateral cataract surgery. Past Anesthesia/Blood Transfusion Reactions: No Reported Reaction Past Psychological History: Depression Additional Psychological History / Comment(s): Pt resides with her spouse. She [facility]. She has been having difficulty with ambulation, uses a walker. She has home oxygen and bipap. Her ronel states she uses a wheelchair van now d/t too difficult getting pt in and out of house. Smoking Status: Never smoker Past Alcohol Use History: Rare Past Drug Use History: None Reported - Past Family History Father Family Medical History: Myocardial Infarction (NM) Additional Family Medical History / Comment(s): Father of a NM at the age of 56yrs. Mother Additional Family Medical History / Comment(s): parkinson's Sister(s) Family Medical History: Cancer Medications and Allergies Home Medications Medication Instructions Recorded Confirmed Type Atorvastatin [Lipitor] 40 mg PO HS 08/17/17 12/08/21 History DULoxetine HCL [Cymbalta] 20 mg PO HS 10/16/17 12/08/21 History Fluticasone Nasal [place] [Flonase 1 spr EA NOSTRIL DAILY PRN 12/12/19 12/08/21 History Nasal [place]] Metoprolol Succinate [Toprol XL] 25 mg PO DAILY 12/12/19 12/08/21 History rOPINIRole HCL [Requip] 3 mg PO BID 06/15/21 12/08/21 History Albuterol Inhaler [Ventolin Hfa 2 puff INHALATION RT-QID PRN 07/17/21 12/08/21 History Inhaler] Ascorbic Acid [Vitamin C] 500 mg PO DAILY 08/21/21 12/08/21 History Budesonide-Formot 160-4.5 Mcg 2 puff INHALATION RT-BID 08/21/21 12/08/21 History [Symbicort 160-4.5 Mcg Inhaler] Cholecalciferol [Vitamin D3 (25 25 mcg PO DAILY 08/21/21 12/08/21 History Mcg = 1000 Iu)] Ipratropium-Albuterol Nebulize 3 ml INHALATION RT-QID 08/21/21 12/08/21 History [Duoneb 0.5 mg-3 mg/3 ml Soln] acetaZOLAMIDE [Diamox] 250 mg PO DAILY 08/21/21 12/08/21 History Albuterol Nebulized [Ventolin 2.5 mg INHALATION RT-QID PRN ml 11/12/21 12/08/21 Rx Nebulized] Apixaban [Eliquis] 2.5 mg PO BID tablet 11/12/21 12/08/21 Rx Cyanocobalamin [Vitamin B-12] 1,000 mcg PO DAILY tab 11/12/21 12/08/21 Rx Docusate [Colace] 100 mg PO DAILY PRN cap 11/12/21 12/08/21 Rx HYDROcodone/APAP 7.5-325MG [[place] 1 tab PO BID PRN #6 tab 11/12/21 12/08/21 Rx 7.5-325] Pregabalin [Lyrica] 150 mg PO TID@0600,1400,2200 #6 cap 11/12/21 12/08/21 Rx Ipratropium-Albuterol Nebulize 3 ml INHALATION RT-QID PRN ml 11/19/21 12/08/21 Rx [Duoneb 0.5 mg-3 mg/3 ml Soln] Lactulose [Cephulac] 20 gm PO QID ml 11/19/21 12/08/21 Rx Cetirizine HCl 10 mg PO DAILY 12/08/21 12/08/21 History Famotidine [Pepcid] 20 mg PO DAILY@0600 12/08/21 12/08/21 History Furosemide [Lasix] 40 mg PO BID@0600,1400 12/08/21 12/08/21 History Levothyroxine Sodium [Synthroid] 75 mcg PO DAILY@0600 12/08/21 12/08/21 History Lidocaine/Menthol 1 patch TRANSDERM BID@0600,2200 12/08/21 12/08/21 History [Lidocaine-Menthol 4%-1% Patch] Magnesium Hydroxide [Milk of 2,400 mg PO DAILY 12/08/21 12/08/21 History Magnesia] Melatonin 2.5 mg PO HS 12/08/21 12/08/21 History Pantoprazole [Protonix] 40 mg PO DAILY@0600 12/08/21 12/08/21 History Potassium Chloride ER [K-Dur 20] 20 meq PO HS 12/08/21 12/08/21 History Allergies Allergy/AdvReac Type Severity Reaction Status Date / Time Penicillins Allergy Swelling/it Verified 12/08/21 17:36 lolis Physical Exam Vitals: Vital Signs Temp Pulse Pulse Resp BP BP Pulse Ox 12/09/21 15:31 64 12/09/21 15:19 62 12/09/21 12:27 66 12/09/21 12:19 67 12/09/21 12:00 65 16 107/61 96 12/09/21 08:58 62 12/09/21 08:45 61 12/09/21 08:00 97.7 F 61 16 150/73 93 L 12/09/21 04:00 97.6 F 60 20 151/79 95 12/09/21 01:54 20 12/09/21 00:00 97.6 F 60 20 154/78 96 12/08/21 22:00 98.2 F 70 20 114/71 93 L 12/08/21 20:36 98.2 F 70 20 114/71 93 L 12/08/21 19:21 75 18 119/56 92 L 12/08/21 17:07 80 12/08/21 17:04 76 22 142/67 90 L 12/08/21 16:56 79 Intake and Output 12/09/21 12/09/21 12/09/21 06:59 14:59 22:59 Intake Total 920 Output Total 1250 Balance -1250 920 Intake: Oral 920 Output: Urine 1250 Other: Voiding Method External Catheter External Catheter Weight 96 kg 96 kg GENERAL EXAM: Alert, very pleasant, 86-year-old white female, sitting up in the recliner, mildly short of breath, but appears to be distress, 6 L of oxygen with pulse ox 96% comfortable in no apparent distress. HEAD: Normocephalic/atraumatic. EYES: Normal reaction of pupils, equal size. Conjunctiva pink, sclera white. NOSE: Clear with pink turbinates. THROAT: No erythema or exudates. NECK: No masses, no JVD, no thyroid enlargement, no adenopathy. CHEST: No chest wall deformity. Symmetrical expansion. LUNGS: Equal air entry with crackles CVS: Irregular rate and rhythm, normal S1 and S2, no gallops, no murmurs, no rubs ABDOMEN: Soft, nontender. No hepatosplenomegaly, normal bowel sounds, no guarding or rigidity. EXTREMITIES: No clubbing, 2+ lower extremity edema, no cyanosis, 2+ pulses and upper and lower extremities. MUSCULOSKELETAL: Muscle strength and tone normal. SPINE: No scoliosis or deformity SKIN: No rashes CENTRAL NERVOUS SYSTEM: Alert and oriented -3. No focal deficits, tone is normal in all 4 extremities. PSYCHIATRIC: Alert and oriented -3. Appropriate affect. Intact judgment and insight. Results - Laboratory Findings CBC and BMP: 12/08/21 16:12 12/08/21 16:12 PT/INR, D-dimer PT 11.0 sec (9.0-12.0) 12/08/21 16:12 INR 1.0 (<1.2) 12/08/21 16:12 Abnormal lab findings: Abnormal Labs 12/08/21 12/08/21 12/08/21 16:12 16:12 16:12 RBC 3.42 L Hgb 10.5 L MCV 102.3 H MCHC 30.1 L Plt Count 136 L Lymphocytes # 0.5 L APTT 30.2 H Carbon Dioxide 35 H Glucose 107 H POC Glucose (mg/dL) Magnesium 2.4 H 12/08/21 12/09/21 12/09/21 20:43 05:44 11:36 RBC Hgb MCV MCHC Plt Count Lymphocytes # APTT Carbon Dioxide Glucose POC Glucose (mg/dL) 109 H 140 H 131 H Magnesium 12/09/21 16:21 RBC Hgb MCV MCHC Plt Count Lymphocytes # APTT Carbon Dioxide Glucose POC Glucose (mg/dL) 135 H Magnesium - Diagnostic Findings Chest x-ray: report reviewed, image reviewed Assessment and Plan Plan: Assessment: #1. Acute exacerbation of diastolic CHF #2. History of moderately severe aortic stenosis and moderate pulmonary hypertension #3. Chronic atrial fibrillation on Eliquis #4. Chronic diastolic CHF #5. History of CVA/TIA #6. Hypertension #7. Obstructive sleep apnea On BiPAP at bedtime #8. Acute on chronic hypoxic respiratory failure related to acute exacerbation of CHF #9. History of ovarian cancer status post hysterectomy, and chemoradiation #10. History of incisional hernia repair with mesh #11. Never smoker #12. History of COVID 19 pneumonia in May 2021 Plan: Continue IV diuretics, we will increase the Lasix to 40 mg every 8 hours Continue bronchodilators Continue IV steroids Accurate intake and output Follow-up chest x-ray tomorrow We'll continue to follow clinical course I have personally seen and examined the patient, performed the documentation and the assessment and plan as written. Number of minutes spent on the visit: [15] Time with Patient: Greater than 30
[2021-12-09] MEDS: SYMBICORT 160-4.5 MCG INHALER INHALATION SCH (19:50)
[2021-12-09 20:52] LABS: Glucose,Whole Blood 135 mg/dL (75-99)
[2021-12-09] MEDS: MELATONIN 5 MG TABLET PO SCH (21:13)
[2021-12-09] MEDS: POTASSIUM CHLORIDE ER 20 MEQ TAB.ER PO SCH (21:13)
[2021-12-09] MEDS: ATORVASTATIN 40 MG TAB PO SCH (21:14)
[2021-12-09] MEDS: methylPREDNISolone SOD SUCCI 40 MG/ML 1 ML VIAL IV SCH (21:14)
[2021-12-09] MEDS: DULoxetine HCL 20 MG CAPSULE.DR PO SCH (21:14)
[2021-12-09] MEDS: HYDROcodone/APAP 7.5-325MG 1 EACH TAB PO PRN (21:17)
[2021-12-09] MEDS: NON FORMULARY DRUG (Lidocaine/Menthol [Lidocaine-Menthol 4%-1% Patch] 1 EACH Patch) TRANSDERM SCH (22:23)
[2021-12-10] MEDS: FUROSEMIDE 10 MG/ML 4 ML VIAL IV SCH ×3 (00:24→20:36)
[2021-12-10 05:36] LABS: Glucose,Whole Blood 134 mg/dL (75-99)
[2021-12-10] MEDS: FAMOTIDINE 20 MG TAB PO SCH (05:44)
[2021-12-10] MEDS: LEVOTHYROXINE 75 MCG TAB PO SCH (05:44)
[2021-12-10] MEDS: NON FORMULARY DRUG (Lidocaine/Menthol [Lidocaine-Menthol 4%-1% Patch] 1 EACH Patch) TRANSDERM SCH ×2 (05:44→23:26)
[2021-12-10] MEDS: PREGABALIN 75 MG CAP PO SCH ×3 (05:44→20:35)
[2021-12-10 07:30] LABS: ALT 10 U/L (4-34); AST 17 U/L (14-36); African American GFR (CKD) >90 (>60 ml/min/1.73 sqM); Albumin 3.5 g/dL (3.5-5.0); Alkaline Phosphatase 84 U/L (38-126); Anion Gap 5 mmol/L; Blood Urea Nitrogen 17 mg/dL (7-17); Calcium 8.5 mg/dL (8.4-10.2); Carbon Dioxide 38 mmol/L (22-30); Chloride 100 mmol/L (98-107); Glucose 129 mg/dL (74-99); Magnesium 2.3 mg/dL (1.6-2.3); Non-African American GFR(CKD) 80 (>60 ml/min/1.73 sqM); Potassium 3.8 mmol/L (3.5-5.1); Sodium 143 mmol/L (137-145); Total Bilirubin 0.5 mg/dL (0.2-1.3); Total Protein 5.9 g/dL (6.3-8.2)
[2021-12-10 07:32] LABS: Basophils % (A) 0 %; Eosinophils % (A) 0 %; HCT 34.4 % (34.0-46.0); HGB 10.6 gm/dL (11.4-16.0); Hypochromasia Marked; Lymphocytes # (A) 0.4 k/uL (1.0-4.8); Lymphocytes % (A) 7 %; MCH 30.5 pg (25.0-35.0); MCHC 30.7 g/dL (31.0-37.0); MCV 99.4 fL (80.0-100.0); Macrocytosis Slight; Mean Platelet Volume 9.8; Monocytes # (A) 0.2 k/uL (0-1.0); Monocytes % (A) 3 %; Neutrophils # (A) 4.6 k/uL (1.3-7.7); Neutrophils % (A) 88 %; Platelet Count 176 k/uL (150-450); RBC 3.46 m/uL (3.80-5.40); RDW 15.1 % (11.5-15.5); WBC 5.2 k/uL (3.8-10.6)
--- NOTE | 2021-12-10 08:05 | XR ---
EXAMINATION TYPE: XR chest 1V portable DATE OF EXAM: 12/10/2021 COMPARISON: 12/08/2021 HISTORY: Difficulty breathing TECHNIQUE: Single frontal view of the chest is obtained. FINDINGS: A stimulator lead is noted overlying the thoracic spine and there is bilateral infiltrate. No sizable pleural effusion or pneumothorax. Heart is enlarged. Implantable cardiac device suspected overlying the left hemithorax. Interstitial pattern seen. IMPRESSION: 1. Bilateral infiltrate correlate for pneumonia otherwise consider CHF. Findings stable.
[2021-12-10] MEDS: SYMBICORT 160-4.5 MCG INHALER INHALATION SCH ×2 (08:15→20:55)
[2021-12-10] MEDS: IPRATROPIUM-ALBUTEROL 3 ML NEB INHALATION SCH ×4 (08:15→20:55)
[2021-12-10] MEDS: LORATADINE 10 MG TAB PO SCH (09:04)
[2021-12-10] MEDS: APIXABAN 2.5 MG TABLET PO SCH ×2 (09:04→20:35)
[2021-12-10] MEDS: CHOLECALCIFEROL 25 MCG (1000 IU) TABLET PO SCH (09:04)
[2021-12-10] MEDS: acetaZOLAMIDE 250 MG TAB PO SCH (09:04)
[2021-12-10] MEDS: METOPROLOL SUCCINATE (ER) 25 MG TAB.ER.24H PO SCH (09:04)
[2021-12-10] MEDS: LACTULOSE 20 GM/30 ML CUP PO SCH ×4 (09:05→20:34)
[2021-12-10] MEDS: methylPREDNISolone SOD SUCCI 40 MG/ML 1 ML VIAL IV SCH ×2 (09:06→20:35)
[2021-12-10 11:37] LABS: Glucose,Whole Blood 181 mg/dL (75-99)
--- NOTE | 2021-12-10 12:40 | P.PN ---
Subjective Progress Note Date: 12/10/21 Principal diagnosis: Shortness of breath, worsening peripheral edema This 86-year-old female patient with past medical history of COPD on home oxygen, history of COVID 19 pneumonia in May 2021, chronic CHF, chronic atrial fibrillation, prior history of CVA/TIA, sleep apnea, lifetime nonsmoker, previous episode of pneumonia, history of ovarian cancer with surgery and chemo radiation, chronic pain syndrome with chronic back pain and bilateral hip and shoulder pain. Patient used to wear 3 L of oxygen on a regular basis for history of COPD however lately she had been up to 6 L on a regular basis. Patient's daughter is at the bedside and is providing history of present illness. On 12/08/2021 patient came into the emergency department by EMS for evaluation of worsening shortness of breath, a cough, and lower extremity swelling. Denied any fever or chills. Her chest x-ray showed a pulmonary edema, and mild patchy bilateral atelectasis. Blood work has been reviewed, showing white blood cell count of 3.8, hemoglobin of 10.5, CO2 is 35 with a respiratory left with the renal profile unremarkable, LFTs were within normal limits, lactic acid 0.7, proBNP was 3920, troponin was negative at 0.012, patient tested negative for COVID 19, influenza A and B. Patient was started on IV Lasix 40 mg every 12 hours, nebulized bronchodilators, she continues on an requests for history of chronic atrial fibrillation. And she is started on IV Solu-Medrol 40 mg twice daily. Patient is a -2000 and the net fluid balance over the last 24 hours, further extremities have an Don wrapped, she has 1+ to 2+ lower extremity and pedal edema. Patient is currently on 6 L of oxygen the pulse ox of 96%. On 12/10/2021 patient is seen in follow-up on selective care unit. Patient has a chest congestion, cough, she states she is doing about the same, without significant improvement or worsening. She is currently on 5 L of oxygen her pulse ox is 89%, she is on diuretics, with Lasix which has been dropped down to twice daily per cardiology. Follow-up chest x-ray today showing enlarged heart, persistent interstitial pattern. Patient is an +950 ML net fluid balance over the last 24 hours. Today's labs have been reviewed, white blood cell count is 5.2, hemoglobin is 10.6, CO2 is 38, and respiratory electrolytes and renal profile were unremarkable. LFTs are within normal limits. Lower extremity edema seems to have slightly improved. Lower extremities are Don wrapped, still has significant pedal edema Objective - Vital Signs Vital signs: Vital Signs Temp 97.6 F 12/10/21 08:00 Pulse 76 12/10/21 12:01 Resp 16 12/10/21 12:00 BP 140/72 12/10/21 12:00 Pulse Ox 92 L 12/10/21 12:00 Intake & Output 12/09/21 12/10/21 12/10/21 18:59 06:59 18:59 Intake Total 1370 480 340 Output Total 900 Balance 1370 -420 340 Weight 96 kg Intake: Oral 1370 480 340 Output: Urine 900 Other: Voiding Method External Catheter External Catheter External Catheter - Exam GENERAL EXAM: Alert, very pleasant, 86-year-old white female, sitting up in the recliner, mildly short of breath, but appears to be distress, 6 L of oxygen with pulse ox 96% comfortable in no apparent distress. HEAD: Normocephalic/atraumatic. EYES: Normal reaction of pupils, equal size. Conjunctiva pink, sclera white. NOSE: Clear with pink turbinates. THROAT: No erythema or exudates. NECK: No masses, no JVD, no thyroid enlargement, no adenopathy. CHEST: No chest wall deformity. Symmetrical expansion. LUNGS: Equal air entry with crackles CVS: Irregular rate and rhythm, normal S1 and S2, no gallops, no murmurs, no rubs ABDOMEN: Soft, nontender. No hepatosplenomegaly, normal bowel sounds, no guarding or rigidity. EXTREMITIES: No clubbing, 2+ lower extremity edema, no cyanosis, 2+ pulses and upper and lower extremities. MUSCULOSKELETAL: Muscle strength and tone normal. SPINE: No scoliosis or deformity SKIN: No rashes CENTRAL NERVOUS SYSTEM: Alert and oriented -3. No focal deficits, tone is normal in all 4 extremities. PSYCHIATRIC: Alert and oriented -3. Appropriate affect. Intact judgment and insight. - Labs CBC & Chem 7: 12/10/21 06:12 12/10/21 06:12 Labs: Abnormal Lab Results - Last 24 Hours (Table) 12/09/21 12/09/21 12/10/21 Range/Units 16:21 20:49 05:19 RBC (3.80-5.40) m/uL Hgb (11.4-16.0) gm/dL MCHC (31.0-37.0) g/dL Lymphocytes # (1.0-4.8) k/uL Carbon Dioxide (22-30) mmol/L Glucose (74-99) mg/dL POC Glucose (mg/dL) 135 H 135 H 134 H (75-99) mg/dL Total Protein (6.3-8.2) g/dL 12/10/21 12/10/21 12/10/21 Range/Units 06:12 06:12 11:35 RBC 3.46 L (3.80-5.40) m/uL Hgb 10.6 L (11.4-16.0) gm/dL MCHC 30.7 L (31.0-37.0) g/dL Lymphocytes # 0.4 L (1.0-4.8) k/uL Carbon Dioxide 38 H (22-30) mmol/L Glucose 129 H (74-99) mg/dL POC Glucose (mg/dL) 181 H (75-99) mg/dL Total Protein 5.9 L (6.3-8.2) g/dL Assessment and Plan Plan: Assessment: #1. Acute exacerbation of diastolic CHF #2. History of moderately severe aortic stenosis and moderate pulmonary hypertension #3. Chronic atrial fibrillation on Eliquis #4. Chronic diastolic CHF #5. History of CVA/TIA #6. Hypertension #7. Obstructive sleep apnea On BiPAP at bedtime #8. Acute on chronic hypoxic respiratory failure related to acute exacerbation of CHF #9. History of ovarian cancer status post hysterectomy, and chemoradiation #10. History of incisional hernia repair with mesh #11. Never smoker #12. History of COVID 19 pneumonia in May 2021 #13. Questionable history of COPD as the patient was never a smoker Plan: Continue diuretics per cardiology recommendations Today's x-ray still showing persistent interstitial pattern O2 saturations are borderline on 5 L of oxygen Still quite congested, coughing, and short of breath Continue nebulized bronchodilators. Continue IV steroids Patient's presentation is more consistent with acute exacerbation of diastolic CHF There is questionable history of COPD as the patient was never a smoker CHF management per cardiology Pulmonary service will follow on an as-needed basis I have personally seen and examined the patient, performed the documentation and the assessment and plan as written. Number of minutes spent on the visit: [10] Time with Patient: Less than 30
--- NOTE | 2021-12-10 12:48 | P.PN ---
Subjective Progress Note Date: 12/10/21 HISTORY OF PRESENT ILLNESS: This is a 86-year-old female with a past medical history significant for aortic stenosis, congestive heart failure, paroxysmal atrial fibrillation, obstructive sleep apnea, and COPD with home oxygen use. Patient follows in the office with Dr. Watts. We have been asked to see the patient in consultation for congestive heart failure. Patient examined at the bedside. The patient states she presented to the hospital secondary to shortness of breath. She states she has been feeling short of breath for the past 2-3 days. She also reports frequent coughing with no sputum production. She states she has been compliant at home with her medications and her heart failure diet. The patient was found to be in acute CHF in the emergency room and she was started on IV Lasix. * EKG reveals sinus mechanism with first-degree AV block. Right bundle branch block. Left anterior fascicular block. * Chest xray pulmonary edema that could be congestive heart failure that is increased compared to old exam. Mild patchy bilateral atelectasis. * Laboratory data: WBC 3.8. Hemoglobin 10.5. Platelet count 136. Sodium 142. Potassium 3.7. BUN 12. Creatinine 0.73. ProBNP 3920. Troponin negative 1. * Current home cardiac medications include Eliquis 2.5 mg twice a day, Lipitor 40 mg at night, Lasix 40 mg twice a day, metoprolol succinate 25 mg daily, Martha mox 250 mg daily * Most recent echocardiogram obtained in October 2021 revealed ejection fraction 55-60% with moderate aortic stenosis * Cardiac catheterization history: January 2011 revealing 30% proximal LAD stenosis 12/10/2021 Patient examined this morning at the bedside. Patient appears to be somewhat confused this morning. She denies chest pain or pressure. She reports some i mprovement in her shortness of breath. She continues to have a frequent cough. She remains on Lasix 40 mg every 8 hours. Creatinine 0.67 today. PHYSICAL EXAM: VITAL SIGNS: Reviewed. GENERAL: Well-developed in no acute distress. HEENT: Head is normocephalic. Pupils are equal, round. Sclerae anicteric. Mucous membranes of the mouth are moist. Neck supple. No JVD or thyromegaly LUNGS: Respirations even and unlabored. Lungs diminished with expiratory wheezing noted. HEART: Regular rate and rhythm. S1 and S2 heard. Systolic murmur noted ABDOMEN: Soft. Nondistended. Nontender. EXTREMITIES: Normal range of motion. No clubbing or cyanosis. Peripheral pulses intact. Bilateral lower extremity edema noted with Don wraps to both legs. NEUROLOGIC: Awake and alert. Oriented x 3. ASSESSMENT: Shortness of breath COPD exacerbation Acute on chronic congestive heart failure with preserved ejection fraction Acute on chronic hypercapnic and hypoxic respiratory failure Paroxysmal atrial fibrillation Aortic stenosis Obstructive sleep apnea Hypertension Hyperlipidemia Hypothyroidism PLAN: No need to repeat echocardiogram as this was performed in October 2021 Resume home cardiac medications Continue anticoagulation with Eliquis Continue IV Lasix. Decrease dose to every 12 hours Monitor kidney function Daily weight Accurate I&O Further recommendations pending patient's course Nurse practitioner note has been reviewed by physician. Signing provider agrees with the documented findings, assessment, and plan of care. Objective - Vital Signs Vital signs: Vital Signs Temp 97.6 F 12/10/21 08:00 Pulse 76 12/10/21 12:01 Resp 16 12/10/21 12:00 BP 140/72 12/10/21 12:00 Pulse Ox 92 L 12/10/21 12:00 Intake & Output 12/09/21 12/10/21 12/10/21 18:59 06:59 18:59 Intake Total 1370 480 340 Output Total 900 Balance 1370 -420 340 Weight 96 kg Intake: Oral 1370 480 340 Output: Urine 900 Other: Voiding Method External Catheter External Catheter External Catheter - Labs CBC & Chem 7: 12/10/21 06:12 12/10/21 06:12 Labs: Abnormal Lab Results - Last 24 Hours (Table) 12/09/21 12/09/21 12/10/21 Range/Units 16:21 20:49 05:19 RBC (3.80-5.40) m/uL Hgb (11.4-16.0) gm/dL MCHC (31.0-37.0) g/dL Lymphocytes # (1.0-4.8) k/uL Carbon Dioxide (22-30) mmol/L Glucose (74-99) mg/dL POC Glucose (mg/dL) 135 H 135 H 134 H (75-99) mg/dL Total Protein (6.3-8.2) g/dL 12/10/21 12/10/21 12/10/21 Range/Units 06:12 06:12 11:35 RBC 3.46 L (3.80-5.40) m/uL Hgb 10.6 L (11.4-16.0) gm/dL MCHC 30.7 L (31.0-37.0) g/dL Lymphocytes # 0.4 L (1.0-4.8) k/uL Carbon Dioxide 38 H (22-30) mmol/L Glucose 129 H (74-99) mg/dL POC Glucose (mg/dL) 181 H (75-99) mg/dL Total Protein 5.9 L (6.3-8.2) g/dL
--- NOTE | 2021-12-10 14:59 | P.PN ---
Subjective Progress Note Date: 12/10/21 Patient is a pleasant 86-year-old female with known history of COPD, chronic diastolic dysfunction, moderate pulmonary hypertension, on the 3 L of oxygen as an outpatient came in with the shortness of breath. Patient is a [facility] resident unable to bring up her oxygen saturation. She is currently on 6 L of oxygen. Patient has wheezing on exam chest x-ray showed pulmonary edema. Patient denied any fever chills patient was having cough with mild hemoptysis. She usually uses BiPAP at nighttime. Apparently patient was confused yesterday 12/10/2021 Patient evaluated today resting in bed. She continues on oxygen support at 6L nasal cannula with saturation of 92%. She was unable to tolerated being weaned to 5L and oxygen saturation dropped into the 80s. Paitient is still having congested cough. Follow up chest xray today showing bilateral infiltrate correlate for pneumonia otherwise consider CHF. Findings are stable. She continues on Diamox, duoneb, symbicort, IV solumedrol. Lasix has been decreased to 40 mg IV Q12. Labs today showing hgb of 10.6 which is stable, platelets improved to 176, CO2 38. She is being followed closely by cardiology and pulmonary services. Physical therapy eval has been completed and recommended subacute rehab when stable. Review of Systems Constitutional: Denied any fatigue denied any fever. Cardio vascular: denied any chest pain, palpitations Gastrointestinal: denied any nausea, vomiting, diarrhea Pulmonary: Reports shortness of breath, reports productive cough Neurologic denied any new focal deficits All inpatient medications were reviewed and appropriate changes in these medications as dictated in the interval history and assessment and plan. PHYSICAL EXAMINATION: GENERAL: The patient is alert and oriented x3, tachypneic. Obese HEENT: Pupils are round and equally reacting to light. EOMI. No scleral icterus. No conjunctival pallor. Normocephalic, atraumatic. No pharyngeal erythema. No thyromegaly. CARDIOVASCULAR: S1 and S2 present. No rubs, or gallops-grade 4/6 systolic murmur in the aortic area. PULMONARY: Expiratory wheezing, scattered basilar crackles, faint. ABDOMEN: Soft, nontender, nondistended, normoactive bowel sounds. No palpable organomegaly. MUSCULOSKELETAL: No joint swelling or deformity. EXTREMITIES: No cyanosis, clubbing, bilateral lower extremity pedal edema NEUROLOGICAL: Gross neurological examination did not reveal any focal deficits. SKIN: No rashes. Assessment and plan -Acute on chronic hypoxic and hypercapnic respiratory failure secondary to CHF as well as COPD exacerbation. -Hemoptysis secondary to bronchitis -Congestive heart failure chronic diastolic dysfunction with acute exacerbation -Metabolic encephalopathy probably secondary to hypercapnia, improve -COPD with acute exacerbation, oxygen dependent -Obstructive sleep apnea and uses a CPAP at nighttime, 3 liters of oxygen at during the day -Obesity -History of atrial fibrillation probably paroxysmal rate controlled at this time -History of cardiac catheterization status post stenting -Hypertension -Moderate pulmonary hypertension -Hyperlipidemia -Hypothyroidism -Depression -Metabolic acidosis secondary to hypercapnia, metabolic acidosis is chronic -History fibromyalgia -History of GERD -History ovarian cancer status post surgery, chemo and radiation GI Prophylaxis DVT Prophylaxis Plan Patient is continued on IV steroids, and IV lasix which was decreased today by cardiology services. Continue symbicort, duonebs Wean oxygen as tolerated Continue with GAGANDEEP wrapes to bilateral lower extremity as tolerated Pulmonary, cardiology consultation Intake and output PT/OT consultation Subacute rehabilitation on discharge The impression and plan of care has been dictated by Mireille Pritchard, Nurse Practitioner as directed. Dr. Radha MD I have performed a history and physical examination and medical decision making of this patient, discussed the same with the dictator, and agree with the dictators assessment and plan as written, documented as a scribe. Based on total visit time, I have performed more than 50% of this visit. Objective - Vital Signs Vital signs: Vital Signs Temp 97.6 F 12/10/21 08:00 Pulse 76 12/10/21 12:01 Resp 16 12/10/21 14:00 BP 140/72 12/10/21 12:00 Pulse Ox 92 L 12/10/21 12:00 Intake & Output 12/09/21 12/10/21 12/10/21 18:59 06:59 18:59 Intake Total 1370 480 340 Output Total 900 Balance 1370 -420 340 Weight 96 kg Intake: Oral 1370 480 340 Output: Urine 900 Other: Voiding Method External Catheter External Catheter External Catheter - Labs CBC & Chem 7: 12/10/21 06:12 12/10/21 06:12 Labs: Abnormal Lab Results - Last 24 Hours (Table) 12/09/21 12/09/21 12/10/21 Range/Units 16:21 20:49 05:19 RBC (3.80-5.40) m/uL Hgb (11.4-16.0) gm/dL MCHC (31.0-37.0) g/dL Lymphocytes # (1.0-4.8) k/uL Carbon Dioxide (22-30) mmol/L Glucose (74-99) mg/dL POC Glucose (mg/dL) 135 H 135 H 134 H (75-99) mg/dL Total Protein (6.3-8.2) g/dL 12/10/21 12/10/21 12/10/21 Range/Units 06:12 06:12 11:35 RBC 3.46 L (3.80-5.40) m/uL Hgb 10.6 L (11.4-16.0) gm/dL MCHC 30.7 L (31.0-37.0) g/dL Lymphocytes # 0.4 L (1.0-4.8) k/uL Carbon Dioxide 38 H (22-30) mmol/L Glucose 129 H (74-99) mg/dL POC Glucose (mg/dL) 181 H (75-99) mg/dL Total Protein 5.9 L (6.3-8.2) g/dL Assessment and Plan Time with Patient: Less than 30
[2021-12-10 16:12] LABS: Glucose,Whole Blood 131 mg/dL (75-99)
[2021-12-10] MEDS: POTASSIUM CHLORIDE ER 20 MEQ TAB.ER PO SCH (20:35)
[2021-12-10] MEDS: MELATONIN 5 MG TABLET PO SCH (20:35)
[2021-12-10] MEDS: ATORVASTATIN 40 MG TAB PO SCH (20:35)
[2021-12-10] MEDS: DULoxetine HCL 20 MG CAPSULE.DR PO SCH (20:35)
[2021-12-10 21:17] LABS: Glucose,Whole Blood 108 mg/dL (75-99)
[2021-12-11 06:11] LABS: Glucose,Whole Blood 123 mg/dL (75-99)
[2021-12-11] MEDS: NON FORMULARY DRUG (Lidocaine/Menthol [Lidocaine-Menthol 4%-1% Patch] 1 EACH Patch) TRANSDERM SCH ×2 (06:23→23:48)
[2021-12-11] MEDS: FAMOTIDINE 20 MG TAB PO SCH (06:23)
[2021-12-11] MEDS: LEVOTHYROXINE 75 MCG TAB PO SCH (06:23)
[2021-12-11] MEDS: PREGABALIN 75 MG CAP PO SCH ×3 (06:23→20:53)
[2021-12-11] MEDS: IPRATROPIUM-ALBUTEROL 3 ML NEB INHALATION SCH ×4 (07:20→19:59)
[2021-12-11] MEDS: SYMBICORT 160-4.5 MCG INHALER INHALATION SCH ×2 (07:21→19:59)
[2021-12-11] MEDS: FUROSEMIDE 10 MG/ML 4 ML VIAL IV SCH ×2 (09:10→20:55)
[2021-12-11] MEDS: CHOLECALCIFEROL 25 MCG (1000 IU) TABLET PO SCH (09:10)
[2021-12-11] MEDS: methylPREDNISolone SOD SUCCI 40 MG/ML 1 ML VIAL IV SCH ×2 (09:10→21:00)
[2021-12-11] MEDS: LORATADINE 10 MG TAB PO SCH (09:11)
[2021-12-11] MEDS: APIXABAN 2.5 MG TABLET PO SCH ×2 (09:11→20:54)
[2021-12-11] MEDS: acetaZOLAMIDE 250 MG TAB PO SCH (09:12)
[2021-12-11] MEDS: METOPROLOL SUCCINATE (ER) 25 MG TAB.ER.24H PO SCH (09:12)
[2021-12-11] MEDS: LACTULOSE 20 GM/30 ML CUP PO SCH ×4 (09:20→23:48)
--- NOTE | 2021-12-11 10:52 | P.PN ---
Subjective Progress Note Date: 12/11/21 HISTORY OF PRESENT ILLNESS: This is a 86-year-old female with a past medical history significant for aortic stenosis, congestive heart failure, paroxysmal atrial fibrillation, obstructive sleep apnea, and COPD with home oxygen use. Patient follows in the office with Dr. Watts. We have been asked to see the patient in consultation for congestive heart failure. Patient examined at the bedside. The patient states she presented to the hospital secondary to shortness of breath. She states she has been feeling short of breath for the past 2-3 days. She also reports frequent coughing with no sputum production. She states she has been compliant at home with her medications and her heart failure diet. The patient was found to be in acute CHF in the emergency room and she was started on IV Lasix. * EKG reveals sinus mechanism with first-degree AV block. Right bundle branch block. Left anterior fascicular block. * Chest xray pulmonary edema that could be congestive heart failure that is increased compared to old exam. Mild patchy bilateral atelectasis. * Laboratory data: WBC 3.8. Hemoglobin 10.5. Platelet count 136. Sodium 142. Potassium 3.7. BUN 12. Creatinine 0.73. ProBNP 3920. Troponin negative 1. * Current home cardiac medications include Eliquis 2.5 mg twice a day, Lipitor 40 mg at night, Lasix 40 mg twice a day, metoprolol succinate 25 mg daily, Martha mox 250 mg daily * Most recent echocardiogram obtained in October 2021 revealed ejection fraction 55-60% with moderate aortic stenosis * Cardiac catheterization history: January 2011 revealing 30% proximal LAD stenosis 12/10/2021 Patient examined this morning at the bedside. Patient appears to be somewhat confused this morning. She denies chest pain or pressure. She reports some i mprovement in her shortness of breath. She continues to have a frequent cough. She remains on Lasix 40 mg every 8 hours. Creatinine 0.67 today. 12/11/2021 Patient examined this morning at the bedside. Patient denies chest pain or pressure. She reports mild shortness of breath. She continues to have a frequent cough. She remains on IV Lasix 40 mg every 12 hours. Fluid balance over the last 24 hours is -1620 mL. Blood pressure 147/73. PHYSICAL EXAM: VITAL SIGNS: Reviewed. GENERAL: Well-developed in no acute distress. HEENT: Head is normocephalic. Pupils are equal, round. Sclerae anicteric. Mucous membranes of the mouth are moist. Neck supple. No JVD or thyromegaly LUNGS: Respirations even and unlabored. Lungs diminished with expiratory wheezing noted. HEART: Regular rate and rhythm. S1 and S2 heard. Systolic murmur noted ABDOMEN: Soft. Nondistended. Nontender. EXTREMITIES: Normal range of motion. No clubbing or cyanosis. Peripheral pulses intact. Bilateral lower extremity edema noted with Don wraps to both legs. NEUROLOGIC: Awake and alert. Oriented x 3. ASSESSMENT: Shortness of breath COPD exacerbation Acute on chronic congestive heart failure with preserved ejection fraction Acute on chronic hypercapnic and hypoxic respiratory failure Paroxysmal atrial fibrillation Aortic stenosis Obstructive sleep apnea Hypertension Hyperlipidemia Hypothyroidism PLAN: Continue current cardiac medications Continue anticoagulation with Eliquis Continue IV Lasix. Decrease dose to every 12 hours Repeat CXR Monitor kidney function Daily weight Accurate I&O Further recommendations pending patient's course Nurse practitioner note has been reviewed by physician. Signing provider agrees with the documented findings, assessment, and plan of care. Objective - Vital Signs Vital signs: Vital Signs Temp 98.0 F 12/11/21 08:00 Pulse 73 12/11/21 08:00 Resp 21 12/11/21 08:00 BP 147/73 12/11/21 08:00 Pulse Ox 93 L 12/11/21 08:00 Intake & Output 12/10/21 12/11/21 12/11/21 18:59 06:59 18:59 Intake Total 820 480 240 Output Total 1300 1620 Balance -480 -1140 240 Weight 110 kg Intake: Oral 820 480 240 Output: Urine 1300 1620 Other: Voiding Method External Catheter External Catheter - Labs CBC & Chem 7: 12/10/21 06:12 12/10/21 06:12 Labs: Abnormal Lab Results - Last 24 Hours (Table) 12/10/21 12/10/21 12/10/21 Range/Units 11:35 16:11 20:58 POC Glucose (mg/dL) 181 H 131 H 108 H (75-99) mg/dL 12/11/21 Range/Units 06:07 POC Glucose (mg/dL) 123 H (75-99) mg/dL
[2021-12-11 11:48] LABS: Glucose,Whole Blood 148 mg/dL (75-99)
--- NOTE | 2021-12-11 13:16 | XR ---
EXAMINATION TYPE: XR chest 1V portable DATE OF EXAM: 12/11/2021 COMPARISON: 12/10/2021 HISTORY: Shortness of breath TECHNIQUE: Single frontal view of the chest is obtained. FINDINGS: Leads are seen overlying the thoracic spine. There is limited inspiration with bilateral a reas of infiltrate. No pneumothorax. No sizable pleural effusion. Heart size stable. Atherosclerotic change aorta. Diffuse osteopenia. IMPRESSION: Bilateral infiltrates are stable unchanged from prior exam.
--- NOTE | 2021-12-11 16:19 | P.PN ---
Subjective Progress Note Date: 12/11/21 Patient is a pleasant 86-year-old female with known history of COPD, chronic diastolic dysfunction, moderate pulmonary hypertension, on the 3 L of oxygen as an outpatient came in with the shortness of breath. Patient is a [facility] resident unable to bring up her oxygen saturation. She is currently on 6 L of oxygen. Patient has wheezing on exam chest x-ray showed pulmonary edema. Patient denied any fever chills patient was having cough with mild hemoptysis. She usually uses BiPAP at nighttime. Apparently patient was confused yesterday 12/10/2021 Patient evaluated today resting in bed. She continues on oxygen support at 6L nasal cannula with saturation of 92%. She was unable to tolerated being weaned to 5L and oxygen saturation dropped into the 80s. Paitient is still having congested cough. Follow up chest xray today showing bilateral infiltrate correlate for pneumonia otherwise consider CHF. Findings are stable. She continues on Diamox, duoneb, symbicort, IV solumedrol. Lasix has been decreased to 40 mg IV Q12. Labs today showing hgb of 10.6 which is stable, platelets improved to 176, CO2 38. She is being followed closely by cardiology and pulmonary services. Physical therapy eval has been completed and recommended subacute rehab when stable. 12/11/2021 Patient sitting up in the chair today with family at the bedside. She is currently on 5L of oxygen with saturation of 90-93%. Blood pressure 133/59. Follow up chest xray today showing bilateral infiltrates are stable unchanged from prior exam. BiPAP at bedside for patient to use tonight. She continues on oral diamox, IV solumedrol, duoneb and symbicort. She will be continued on IV lasix overnight and cardiology will re-evaluate tomorrow, dose was decreased to twice a day. Remains in negative fluid balance. Blood glucose in the 140s. Review of Systems Constitutional: Denied any fatigue denied any fever. Cardio vascular: denied any chest pain, palpitations Gastrointestinal: denied any nausea, vomiting, diarrhea Pulmonary: Reports shortness of breath, reports productive cough Neurologic denied any new focal deficits All inpatient medications were reviewed and appropriate changes in these medications as dictated in the interval history and assessment and plan. PHYSICAL EXAMINATION: GENERAL: The patient is alert and oriented x3, tachypneic. Obese HEENT: Pupils are round and equally reacting to light. EOMI. No scleral icterus. No conjunctival pallor. Normocephalic, atraumatic. No pharyngeal erythema. No thyromegaly. CARDIOVASCULAR: S1 and S2 present. No rubs, or gallops-grade 4/6 systolic murmur in the aortic area. PULMONARY: Expiratory wheezing, scattered basilar crackles, faint. ABDOMEN: Soft, nontender, nondistended, normoactive bowel sounds. No palpable organomegaly. MUSCULOSKELETAL: No joint swelling or deformity. EXTREMITIES: No cyanosis, clubbing, bilateral lower extremity pedal edema NEUROLOGICAL: Gross neurological examination did not reveal any focal deficits. SKIN: No rashes. Assessment and plan -Acute on chronic hypoxic and hypercapnic respiratory failure secondary to CHF as well as COPD exacerbation. -Hemoptysis secondary to bronchitis -Congestive heart failure chronic diastolic dysfunction with acute exacerbation -Paroxysmal atrial fibrillation, rate controlled -Metabolic encephalopathy probably secondary to hypercapnia, improve -COPD with acute exacerbation, oxygen dependent -Obstructive sleep apnea and uses a CPAP at nighttime, 3 liters of oxygen at during the day -History of cardiac catheterization status post stenting -Hypertension -Moderate pulmonary hypertension -Hyperlipidemia -Hypothyroidism -Depression -Metabolic acidosis secondary to hypercapnia, metabolic acidosis is chronic -History fibromyalgia -History of GERD -History ovarian cancer status post surgery, chemo and radiation GI Prophylaxis DVT Prophylaxis Plan Continue on IV lasix Patient is continued on IV steroids Continue symbicort, duonebs Wean oxygen as tolerated Continue with GAGANDEEP wrapes to bilateral lower extremity as tolerated Pulmonary, cardiology consultation Intake and output PT/OT consultation Subacute rehabilitation on discharge The impression and plan of care has been dictated by Mireille Pritchard, Nurse Practitioner as directed. Dr. Radha MD I have performed a history and physical examination and medical decision making of this patient, discussed the same with the dictator, and agree with the dictators assessment and plan as written, documented as a scribe. Based on total visit time, I have performed more than 50% of this visit. Objective - Vital Signs Vital signs: Vital Signs Temp 98.0 F 12/11/21 08:00 Pulse 60 12/11/21 11:43 Resp 21 12/11/21 08:00 BP 147/73 12/11/21 08:00 Pulse Ox 93 L 12/11/21 08:00 Intake & Output 12/10/21 12/11/21 12/11/21 18:59 06:59 18:59 Intake Total 820 480 240 Output Total 1300 1620 Balance -480 -1140 240 Weight 110 kg Intake: Oral 820 480 240 Output: Urine 1300 1620 Other: Voiding Method External Catheter External Catheter - Labs CBC & Chem 7: 12/10/21 06:12 12/10/21 06:12 Labs: Abnormal Lab Results - Last 24 Hours (Table) 12/10/21 12/10/21 12/11/21 Range/Units 16:11 20:58 06:07 POC Glucose (mg/dL) 131 H 108 H 123 H (75-99) mg/dL 12/11/21 Range/Units 11:36 POC Glucose (mg/dL) 148 H (75-99) mg/dL Assessment and Plan Time with Patient: Less than 30
[2021-12-11 16:29] LABS: Glucose,Whole Blood 152 mg/dL (75-99)
[2021-12-11 19:55] LABS: Glucose,Whole Blood 126 mg/dL (75-99)
[2021-12-11] MEDS: ATORVASTATIN 40 MG TAB PO SCH (20:53)
[2021-12-11] MEDS: HYDROcodone/APAP 7.5-325MG 1 EACH TAB PO PRN (20:54)
[2021-12-11] MEDS: POTASSIUM CHLORIDE ER 20 MEQ TAB.ER PO SCH (20:54)
[2021-12-11] MEDS: MELATONIN 5 MG TABLET PO SCH (21:00)
[2021-12-11] MEDS: DULoxetine HCL 20 MG CAPSULE.DR PO SCH (21:01)
[2021-12-12] MEDS: LEVOTHYROXINE 75 MCG TAB PO SCH (05:24)
[2021-12-12] MEDS: PREGABALIN 75 MG CAP PO SCH ×3 (05:24→23:32)
[2021-12-12] MEDS: FAMOTIDINE 20 MG TAB PO SCH (05:24)
[2021-12-12] MEDS: NON FORMULARY DRUG (Lidocaine/Menthol [Lidocaine-Menthol 4%-1% Patch] 1 EACH Patch) TRANSDERM SCH ×2 (05:25→23:33)
[2021-12-12 06:12] LABS: Glucose,Whole Blood 124 mg/dL (75-99)
[2021-12-12] MEDS: IPRATROPIUM-ALBUTEROL 3 ML NEB INHALATION SCH ×4 (07:23→19:07)
[2021-12-12] MEDS: SYMBICORT 160-4.5 MCG INHALER INHALATION SCH ×2 (07:35→19:07)
[2021-12-12] MEDS: LACTULOSE 20 GM/30 ML CUP PO SCH ×4 (10:02→23:33)
[2021-12-12] MEDS: acetaZOLAMIDE 250 MG TAB PO SCH (10:03)
[2021-12-12] MEDS: APIXABAN 2.5 MG TABLET PO SCH ×2 (10:03→20:34)
[2021-12-12] MEDS: METOPROLOL SUCCINATE (ER) 25 MG TAB.ER.24H PO SCH (10:04)
[2021-12-12] MEDS: FUROSEMIDE 10 MG/ML 4 ML VIAL IV SCH ×2 (10:04→20:34)
[2021-12-12] MEDS: LORATADINE 10 MG TAB PO SCH (10:04)
[2021-12-12] MEDS: CHOLECALCIFEROL 25 MCG (1000 IU) TABLET PO SCH (10:04)
[2021-12-12] MEDS: methylPREDNISolone SOD SUCCI 40 MG/ML 1 ML VIAL IV SCH ×2 (10:04→20:33)
--- NOTE | 2021-12-12 10:50 | P.PN ---
Subjective HISTORY OF PRESENT ILLNESS: This is a 86-year-old female with a past medical history significant for aortic stenosis, congestive heart failure, paroxysmal atrial fibrillation, obstructive sleep apnea, and COPD with home oxygen use. Patient follows in the office with Dr. Watts. We have been asked to see the patient in consultation for congestive heart failure. Patient examined at the bedside. The patient states she presented to the hospital secondary to shortness of breath. She states she has been feeling short of breath for the past 2-3 days. She also reports frequent coughing with no sputum production. She states she has been compliant at home with her medications and her heart failure diet. The patient was found to be in acute CHF in the emergency room and she was started on IV Lasix. * EKG reveals sinus mechanism with first-degree AV block. Right bundle branch block. Left anterior fascicular block. * Chest xray pulmonary edema that could be congestive heart failure that is increased compared to old exam. Mild patchy bilateral atelectasis. * Laboratory data: WBC 3.8. Hemoglobin 10.5. Platelet count 136. Sodium 142. Potassium 3.7. BUN 12. Creatinine 0.73. ProBNP 3920. Troponin negative 1. * Current home cardiac medications include Eliquis 2.5 mg twice a day, Lipitor 40 mg at night, Lasix 40 mg twice a day, metoprolol succinate 25 mg daily, Diamox 250 mg daily * Most recent echocardiogram obtained in October 2021 revealed ejection fraction 55-60% with moderate aortic stenosis * Cardiac catheterization history: January 2011 revealing 30% proximal LAD stenosis 12/10/2021 Patient examined this morning at the bedside. Patient appears to be somewhat confused this morning. She denies chest pain or pressure. She reports some improvement in her shortness of breath. She continues to have a frequent cough. She remains on Lasix 40 mg every 8 hours. Creatinine 0.67 today. 12/11/2021 Patient examined this morning at the bedside. Patient denies chest pain or pressure. She reports mild shortness of breath. She continues to have a frequent cough. She remains on IV Lasix 40 mg every 12 hours. Fluid balance over the last 24 hours is -1620 mL. Blood pressure 147/73. 12/12/2021 Patient examined this morning at the bedside. Patient denies chest pain or pressure. She reports mild shortness of breath. She has audible wheezing when talking to the patient at the bedside. Chest xray reveals bilateral infiltrates unchanged from prior exam. She is receiving IV steroids. Pulmonary has signed off the case. PHYSICAL EXAM: VITAL SIGNS: Reviewed. GENERAL: Well-developed in no acute distress. HEENT: Head is normocephalic. Pupils are equal, round. Sclerae anicteric. Mucous membranes of the mouth are moist. Neck supple. No JVD or thyromegaly LUNGS: Respirations even and unlabored. Lungs diminished with expiratory wheezing noted. HEART: Regular rate and rhythm. S1 and S2 heard. Systolic murmur noted ABDOMEN: Soft. Nondistended. Nontender. EXTREMITIES: Normal range of motion. No clubbing or cyanosis. Peripheral pulses intact. Bilateral lower extremity edema noted with Don wraps to both legs. NEUROLOGIC: Awake and alert. Oriented x 3. ASSESSMENT: Shortness of breath COPD exacerbation Acute on chronic congestive heart failure with preserved ejection fraction Acute on chronic hypercapnic and hypoxic respiratory failure Paroxysmal atrial fibrillation Aortic stenosis Obstructive sleep apnea Hypertension Hyperlipidemia Hypothyroidism PLAN: Continue current cardiac medications Continue anticoagulation with Eliquis Continue IV lasix Monitor kidney function Daily weight Accurate I&O Patient with significant wheezing this morning. May require reassessment by pulmonary medicine. Further recommendations pending patient's course Nurse practitioner note has been reviewed by physician. Signing provider agrees with the documented findings, assessment, and plan of care. Objective - Vital Signs Vital signs: Vital Signs Temp 97.6 F 12/12/21 04:00 Pulse 89 12/12/21 07:35 Resp 18 12/12/21 04:00 BP 130/60 12/12/21 04:00 Pulse Ox 96 12/12/21 07:23 Intake & Output 12/11/21 12/12/21 12/12/21 18:59 06:59 18:59 Intake Total 480 118 Output Total 1000 Balance 480 -1000 118 Weight 98 kg 91 kg Intake: Oral 480 118 Output: Urine 1000 Other: Voiding Method Toilet Toilet External Catheter External Catheter # Voids 1 1 # Bowel Movements 1 - Labs CBC & Chem 7: 12/10/21 06:12 12/10/21 06:12 Labs: Abnormal Lab Results - Last 24 Hours (Table) 12/11/21 12/11/21 12/11/21 Range/Units 11:36 16:28 19:50 POC Glucose (mg/dL) 148 H 152 H 126 H (75-99) mg/dL 12/12/21 Range/Units 06:10 POC Glucose (mg/dL) 124 H (75-99) mg/dL
[2021-12-12 11:54] LABS: Glucose,Whole Blood 117 mg/dL (75-99)
--- NOTE | 2021-12-12 14:52 | P.PN ---
Subjective Progress Note Date: 12/12/21 Patient is a pleasant 86-year-old female with known history of COPD, chronic diastolic dysfunction, moderate pulmonary hypertension, on the 3 L of oxygen as an outpatient came in with the shortness of breath. Patient is a detention resident unable to bring up her oxygen saturation. She is currently on 6 L of oxygen. Patient has wheezing on exam chest x-ray showed pulmonary edema. Patient denied any fever chills patient was having cough with mild hemoptysis. She usually uses BiPAP at nighttime. Apparently patient was confused yesterday 12/10/2021 Patient evaluated today resting in bed. She continues on oxygen support at 6L nasal cannula with saturation of 92%. She was unable to tolerated being weaned to 5L and oxygen saturation dropped into the 80s. Paitient is still having congested cough. Follow up chest xray today showing bilateral infiltrate correlate for pneumonia otherwise consider CHF. Findings are stable. She continues on Diamox, duoneb, symbicort, IV solumedrol. Lasix has been decreased to 40 mg IV Q12. Labs today showing hgb of 10.6 which is stable, platelets improved to 176, CO2 38. She is being followed closely by cardiology and pulmonary services. Physical therapy eval has been completed and recommended subacute rehab when stable. 12/11/2021 Patient sitting up in the chair today with family at the bedside. She is currently on 5L of oxygen with saturation of 90-93%. Blood pressure 133/59. Follow up chest xray today showing bilateral infiltrates are stable unchanged from prior exam. BiPAP at bedside for patient to use tonight. She continues on oral diamox, IV solumedrol, duoneb and symbicort. She will be continued on IV lasix overnight and cardiology will re-evaluate tomorrow, dose was decreased to twice a day. Remains in negative fluid balance. Blood glucose in the 140s. 12/12/2021 Patient is sitting up in the chair today. She is still quite wheezy, it is audible today, receiving duonebs, symbicort. Cotninues on IV solumedrol, and also on IV lasix BID. She tolerated the Bipap well last night, today she is 93% on 5L of nasal cannula. Blood pressure elevated at 169/65, heart rate 68, afebrile. No labs available for today, blood glucose in the 110-120s. Cardiology is following the patient closely and recommending to monitor overnight on IV las ix. She is -1640 fluid balance in the last 24 hours. Review of Systems Constitutional: Denied any fatigue denied any fever. Cardio vascular: denied any chest pain, palpitations Gastrointestinal: denied any nausea, vomiting, diarrhea Pulmonary: Reports shortness of breath, reports productive cough, wheezing Neurologic denied any new focal deficits All inpatient medications were reviewed and appropriate changes in these medications as dictated in the interval history and assessment and plan. PHYSICAL EXAMINATION: GENERAL: The patient is alert and oriented x3, tachypneic. Obese HEENT: Pupils are round and equally reacting to light. EOMI. No scleral icterus. No conjunctival pallor. Normocephalic, atraumatic. No pharyngeal erythema. No thyromegaly. CARDIOVASCULAR: S1 and S2 present. No rubs, or gallops-grade 4/6 systolic murmur in the aortic area. PULMONARY: Expiratory and audible wheezing, scattered basilar crackles, faint. ABDOMEN: Soft, nontender, nondistended, normoactive bowel sounds. No palpable organomegaly. MUSCULOSKELETAL: No joint swelling or deformity. EXTREMITIES: No cyanosis, clubbing, bilateral lower extremity pedal edema NEUROLOGICAL: Gross neurological examination did not reveal any focal deficits. SKIN: No rashes. Assessment and plan -Acute on chronic hypoxic and hypercapnic respiratory failure secondary to CHF as well as COPD exacerbation, currently on 5L of nasal cannula -Hemoptysis secondary to bronchitis -Congestive heart failure chronic diastolic dysfunction with acute exacerbation -Paroxysmal atrial fibrillation, rate controlled -Metabolic encephalopathy probably secondary to hypercapnia, improved -COPD with acute exacerbation, oxygen dependent -Obstructive sleep apnea and uses a CPAP at nighttime, 3 liters of oxygen at during the day -History of cardiac catheterization status post stenting -Hypertension -Moderate pulmonary hypertension -Hyperlipidemia -Hypothyroidism -Depression -Metabolic acidosis secondary to hypercapnia, metabolic acidosis is chronic -History fibromyalgia -History of GERD -History ovarian cancer status post surgery, chemo and radiation GI Prophylaxis DVT Prophylaxis Plan Continue on IV lasix Patient is continued on IV steroids Continue symbicort, duonebs Wean oxygen as tolerated Continue with GAGANDEEP wrapes to bilateral lower extremity as tolerated Pulmonary, cardiology consultation Intake and output PT/OT consultation Subacute rehabilitation on discharge Monitor overnight on IV lasix, continue with duonebs BiPAP at HS. The impression and plan of care has been dictated by Mireille Pritchard Nurse Practitioner as directed. Dr. Radha MD I have performed a history and physical examination and medical decision making of this patient, discussed the same with the dictator, and agree with the dictators assessment and plan as written, documented as a scribe. Based on total visit time, I have performed more than 50% of this visit. Objective - Vital Signs Vital signs: Vital Signs Temp 97.6 F 12/12/21 04:00 Pulse 54 L 12/12/21 11:27 Resp 18 12/12/21 04:00 BP 130/60 12/12/21 04:00 Pulse Ox 96 12/12/21 07:23 Intake & Output 12/11/21 12/12/21 12/12/21 18:59 06:59 18:59 Intake Total 480 118 Output Total 1000 1000 Balance 480 -1000 -882 Weight 98 kg 91 kg Intake: Oral 480 118 Output: Urine 1000 1000 Other: Voiding Method Toilet Toilet External Catheter External Catheter # Voids 1 1 # Bowel Movements 1 - Labs CBC & Chem 7: 12/10/21 06:12 12/10/21 06:12 Labs: Abnormal Lab Results - Last 24 Hours (Table) 12/11/21 12/11/21 12/12/21 Range/Units 16:28 19:50 06:10 POC Glucose (mg/dL) 152 H 126 H 124 H (75-99) mg/dL 12/12/21 Range/Units 11:52 POC Glucose (mg/dL) 117 H (75-99) mg/dL Assessment and Plan Time with Patient: Less than 30
[2021-12-12] MEDS: HYDROcodone/APAP 7.5-325MG 1 EACH TAB PO PRN (16:12)
[2021-12-12 16:27] LABS: Glucose,Whole Blood 134 mg/dL (75-99)
[2021-12-12 20:31] LABS: Glucose,Whole Blood 113 mg/dL (75-99)
[2021-12-12] MEDS: MELATONIN 5 MG TABLET PO SCH (20:33)
[2021-12-12] MEDS: ATORVASTATIN 40 MG TAB PO SCH (20:34)
[2021-12-12] MEDS: POTASSIUM CHLORIDE ER 20 MEQ TAB.ER PO SCH (20:34)
[2021-12-12] MEDS: DULoxetine HCL 20 MG CAPSULE.DR PO SCH (20:34)
[2021-12-13] MEDS: NON FORMULARY DRUG (Lidocaine/Menthol [Lidocaine-Menthol 4%-1% Patch] 1 EACH Patch) TRANSDERM SCH ×2 (06:17→20:44)
[2021-12-13] MEDS: FAMOTIDINE 20 MG TAB PO SCH (06:18)
[2021-12-13] MEDS: LEVOTHYROXINE 75 MCG TAB PO SCH (06:18)
[2021-12-13] MEDS: PREGABALIN 75 MG CAP PO SCH ×3 (06:19→21:14)
[2021-12-13 06:24] LABS: Glucose,Whole Blood 119 mg/dL (75-99)
[2021-12-13] MEDS: IPRATROPIUM-ALBUTEROL 3 ML NEB INHALATION SCH ×4 (08:14→20:05)
[2021-12-13] MEDS: SYMBICORT 160-4.5 MCG INHALER INHALATION SCH ×2 (08:14→20:05)
[2021-12-13] MEDS: CHOLECALCIFEROL 25 MCG (1000 IU) TABLET PO SCH (09:11)
[2021-12-13] MEDS: acetaZOLAMIDE 250 MG TAB PO SCH (09:11)
[2021-12-13] MEDS: APIXABAN 2.5 MG TABLET PO SCH ×2 (09:11→21:03)
[2021-12-13] MEDS: methylPREDNISolone SOD SUCCI 40 MG/ML 1 ML VIAL IV SCH ×2 (09:11→21:04)
[2021-12-13] MEDS: FUROSEMIDE 40 MG TAB PO SCH ×2 (09:11→16:28)
[2021-12-13] MEDS: LORATADINE 10 MG TAB PO SCH (09:11)
[2021-12-13] MEDS: METOPROLOL SUCCINATE (ER) 25 MG TAB.ER.24H PO SCH (09:11)
[2021-12-13] MEDS: LACTULOSE 20 GM/30 ML CUP PO SCH ×4 (09:11→21:03)
[2021-12-13 09:35] LABS: Basophils % (A) 0 %; Eosinophils % (A) 0 %; HCT 39.6 % (34.0-46.0); HGB 11.9 gm/dL (11.4-16.0); Hypochromasia Marked; Lymphocytes # (A) 0.7 k/uL (1.0-4.8); Lymphocytes % (A) 14 %; MCH 30.3 pg (25.0-35.0); MCV 100.9 fL (80.0-100.0); Macrocytosis Slight; Mean Platelet Volume 9.6; Monocytes # (A) 0.3 k/uL (0-1.0); Monocytes % (A) 7 %; Neutrophils # (A) 3.6 k/uL (1.3-7.7); Neutrophils % (A) 77 %; Platelet Count 196 k/uL (150-450); RBC 3.92 m/uL (3.80-5.40); RDW 14.8 % (11.5-15.5); WBC 4.7 k/uL (3.8-10.6)
[2021-12-13 09:46] LABS: Calcium 9.3 mg/dL (8.4-10.2); Potassium 3.5 mmol/L (3.5-5.1)
[2021-12-13] MEDS ORDERED: POTASSIUM CHLORIDE ER 20 MEQ TAB.ER PO STA (11:56)
[2021-12-13 12:12] LABS: Glucose,Whole Blood 105 mg/dL (75-99)
--- NOTE | 2021-12-13 12:48 | P.PN ---
Subjective Progress Note Date: 12/13/21 HISTORY OF PRESENT ILLNESS: This is a 86-year-old female with a past medical history significant for aortic stenosis, congestive heart failure, paroxysmal atrial fibrillation, obstructive sleep apnea, and COPD with home oxygen use. Patient follows in the office with Dr. Watts. We have been asked to see the patient in consultation for congestive heart failure. Patient examined at the bedside. The patient states she presented to the hospital secondary to shortness of breath. She states she has been feeling short of breath for the past 2-3 days. She also reports frequent coughing with no sputum production. She states she has been compliant at home with her medications and her heart failure diet. The patient was found to be in acute CHF in the emergency room and she was started on IV Lasix. * EKG reveals sinus mechanism with first-degree AV block. Right bundle branch block. Left anterior fascicular block. * Chest xray pulmonary edema that could be congestive heart failure that is increased compared to old exam. Mild patchy bilateral atelectasis. * Laboratory data: WBC 3.8. Hemoglobin 10.5. Platelet count 136. Sodium 142. Potassium 3.7. BUN 12. Creatinine 0.73. ProBNP 3920. Troponin negative 1. * Current home cardiac medications include Eliquis 2.5 mg twice a day, Lipitor 40 mg at night, Lasix 40 mg twice a day, metoprolol succinate 25 mg daily, Martha mox 250 mg daily * Most recent echocardiogram obtained in October 2021 revealed ejection fraction 55-60% with moderate aortic stenosis * Cardiac catheterization history: January 2011 revealing 30% proximal LAD stenosis 12/10/2021 Patient examined this morning at the bedside. Patient appears to be somewhat confused this morning. She denies chest pain or pressure. She reports some i mprovement in her shortness of breath. She continues to have a frequent cough. She remains on Lasix 40 mg every 8 hours. Creatinine 0.67 today. 12/11/2021 Patient examined this morning at the bedside. Patient denies chest pain or pressure. She reports mild shortness of breath. She continues to have a frequent cough. She remains on IV Lasix 40 mg every 12 hours. Fluid balance over the last 24 hours is -1620 mL. Blood pressure 147/73. 12/12/2021 Patient examined this morning at the bedside. Patient denies chest pain or pressure. She reports mild shortness of breath. She has audible wheezing when talking to the patient at the bedside. Chest xray reveals bilateral infiltrates unchanged from prior exam. She is receiving IV steroids. Pulmonary has signed off the case. 12/13/2021 Patient examined this morning at the bedside. Patient denies chest pain or pressure. She states her SOB has resolved. She remains on oral lasix and IV steroids. PHYSICAL EXAM: VITAL SIGNS: Reviewed. GENERAL: Well-developed in no acute distress. HEENT: Head is normocephalic. Pupils are equal, round. Sclerae anicteric. Mucous membranes of the mouth are moist. Neck supple. No JVD or thyromegaly LUNGS: Respirations even and unlabored. Lungs diminished with expiratory wheezing noted. HEART: Regular rate and rhythm. S1 and S2 heard. Systolic murmur noted EXTREMITIES: Normal range of motion. No clubbing or cyanosis. Peripheral pulses intact. Bilateral lower extremity edema noted, improving ASSESSMENT: Shortness of breath COPD exacerbation Acute on chronic congestive heart failure with preserved ejection fraction Acute on chronic hypercapnic and hypoxic respiratory failure Paroxysmal atrial fibrillation Aortic stenosis Obstructive sleep apnea Hypertension Hyperlipidemia Hypothyroidism PLAN: Continue current cardiac medications Continue anticoagulation with Eliquis Discontinue IV lasix. Begin oral lasix 40mg BID. Monitor kidney function Daily weight Accurate I&O Further recommendations pending patient's course Nurse practitioner note has been reviewed by physician. Signing provider agrees with the documented findings, assessment, and plan of care. Objective - Vital Signs Vital signs: Vital Signs Temp 98.4 F 12/13/21 08:00 Pulse 65 12/13/21 08:33 Resp 18 12/13/21 08:00 BP 128/74 12/13/21 08:00 Pulse Ox 90 L 12/13/21 09:00 Intake & Output 12/12/21 12/13/21 12/13/21 18:59 06:59 18:59 Intake Total 236 330 Output Total 1250 1025 Balance -1014 -1025 330 Intake: Oral 236 330 Output: Urine 1250 1025 Other: Voiding Method Toilet Bedside Commode External Catheter Diaper # Voids 1 - Labs CBC & Chem 7: 12/13/21 09:11 12/13/21 09:11 Labs: Abnormal Lab Results - Last 24 Hours (Table) 12/12/21 12/12/21 12/13/21 Range/Units 16:24 20:21 06:09 MCV (80.0-100.0) fL MCHC (31.0-37.0) g/dL Lymphocytes # (1.0-4.8) k/uL Chloride (98-107) mmol/L Carbon Dioxide (22-30) mmol/L BUN (7-17) mg/dL Glucose (74-99) mg/dL POC Glucose (mg/dL) 134 H 113 H 119 H (75-99) mg/dL 12/13/21 12/13/21 12/13/21 Range/Units 09:11 09:11 12:10 MCV 100.9 H (80.0-100.0) fL MCHC 30.0 L (31.0-37.0) g/dL Lymphocytes # 0.7 L (1.0-4.8) k/uL Chloride 95 L (98-107) mmol/L Carbon Dioxide 39 H (22-30) mmol/L BUN 28 H (7-17) mg/dL Glucose 123 H (74-99) mg/dL POC Glucose (mg/dL) 105 H (75-99) mg/dL
[2021-12-13 16:24] LABS: Glucose,Whole Blood 129 mg/dL (75-99)
--- NOTE | 2021-12-13 17:22 | P.PN ---
Subjective Progress Note Date: 12/13/21 Patient is a pleasant 86-year-old female with known history of COPD, chronic diastolic dysfunction, moderate pulmonary hypertension, on the 3 L of oxygen as an outpatient came in with the shortness of breath. Patient is a residential resident unable to bring up her oxygen saturation. She is currently on 6 L of oxygen. Patient has wheezing on exam chest x-ray showed pulmonary edema. Patient denied any fever chills patient was having cough with mild hemoptysis. She usually uses BiPAP at nighttime. Apparently patient was confused yesterday 12/10/2021 Patient evaluated today resting in bed. She continues on oxygen support at 6L nasal cannula with saturation of 92%. She was unable to tolerated being weaned to 5L and oxygen saturation dropped into the 80s. Paitient is still having congested cough. Follow up chest xray today showing bilateral infiltrate correlate for pneumonia otherwise consider CHF. Findings are stable. She continues on Diamox, duoneb, symbicort, IV solumedrol. Lasix has been decreased to 40 mg IV Q12. Labs today showing hgb of 10.6 which is stable, platelets improved to 176, CO2 38. She is being followed closely by cardiology and pulmonary services. Physical therapy eval has been completed and recommended subacute rehab when stable. 12/11/2021 Patient sitting up in the chair today with family at the bedside. She is currently on 5L of oxygen with saturation of 90-93%. Blood pressure 133/59. Follow up chest xray today showing bilateral infiltrates are stable unchanged from prior exam. BiPAP at bedside for patient to use tonight. She continues on oral diamox, IV solumedrol, duoneb and symbicort. She will be continued on IV lasix overnight and cardiology will re-evaluate tomorrow, dose was decreased to twice a day. Remains in negative fluid balance. Blood glucose in the 140s. 12/12/2021 Patient is sitting up in the chair today. She is still quite wheezy, it is audible today, receiving duonebs, symbicort. Cotninues on IV solumedrol, and also on IV lasix BID. She tolerated the Bipap well last night, today she is 93% on 5L of nasal cannula. Blood pressure elevated at 169/65, heart rate 68, afebrile. No labs available for today, blood glucose in the 110-120s. Cardiology is following the patient closely and recommending to monitor overnight on IV las ix. She is -1640 fluid balance in the last 24 hours. 12/13/2021 Patient evaluated today, she continues on nasal cannula 5L with an oxygen saturation of 93%, blood pressure 150/68, afebrile, heart rate 60. Still with audible wheezing today, feels like her left foot is increasing in edema. She was transitioned to oral lasix today, continues on IV solumedrol BID, symbicort. She is also on diamox, CO2 level today is 39. Continue to monitor Intake and Output and daily weights. We will repeat a chest xray in the morning. Patient education completed with family at bedside regarding low sodium diet, Review of Systems Constitutional: Denied any fatigue denied any fever. Cardio vascular: denied any chest pain, palpitations Gastrointestinal: denied any nausea, vomiting, diarrhea Pulmonary: Reports shortness of breath, reports productive cough, wheezing Neurologic denied any new focal deficits All inpatient medications were reviewed and appropriate changes in these medications as dictated in the interval history and assessment and plan. PHYSICAL EXAMINATION: GENERAL: The patient is alert and oriented x3, tachypneic. Obese HEENT: Pupils are round and equally reacting to light. EOMI. No scleral icterus. No conjunctival pallor. Normocephalic, atraumatic. No pharyngeal erythema. No t hyromegaly. CARDIOVASCULAR: S1 and S2 present. No rubs, or gallops-grade 4/6 systolic murmur in the aortic area. PULMONARY: Expiratory and audible wheezing, scattered basilar crackles, faint. ABDOMEN: Soft, nontender, nondistended, normoactive bowel sounds. No palpable organomegaly. MUSCULOSKELETAL: No joint swelling or deformity. EXTREMITIES: No cyanosis, clubbing, bilateral lower extremity pedal edema NEUROLOGICAL: Gross neurological examination did not reveal any focal deficits. SKIN: No rashes. Assessment and plan -Acute on chronic hypoxic and hypercapnic respiratory failure secondary to CHF as well as COPD exacerbation, currently on 5L of nasal cannula -Hemoptysis secondary to bronchitis -Congestive heart failure chronic diastolic dysfunction with acute exacerbation -Paroxysmal atrial fibrillation, rate controlled -Metabolic encephalopathy probably secondary to hypercapnia, improved -COPD with acute exacerbation, oxygen dependent -Obstructive sleep apnea and uses a CPAP at nighttime, 3 liters of oxygen at during the day -History of cardiac catheterization status post stenting -Hypertension -Moderate pulmonary hypertension -Hyperlipidemia -Hypothyroidism -Depression -Metabolic acidosis secondary to hypercapnia, metabolic acidosis is chronic -History fibromyalgia -History of GERD -History ovarian cancer status post surgery, chemo and radiation GI Prophylaxis DVT Prophylaxis Plan Transitioned to oral steroids. Patient is continued on IV steroids Continue symbicort, duonebs Wean oxygen as tolerated Continue with GAGANDEEP wrapes to bilateral lower extremity as tolerated Pulmonary, cardiology consultation Intake and output, daily weights. PT/OT consultation Subacute rehabilitation on discharge BiPAP at , will repeat chest xray in morning. The impression and plan of care has been dictated by Mireille Pritchard, Nurse Practitioner as directed. Dr. Radha MD I have performed a history and physical examination and medical decision making of this patient, discussed the same with the dictator, and agree with the dictators assessment and plan as written, documented as a scribe. Based on total visit time, I have performed more than 50% of this visit. Objective - Vital Signs Vital signs: Vital Signs Temp 98.4 F 12/13/21 08:00 Pulse 65 12/13/21 08:33 Resp 18 12/13/21 08:00 BP 128/74 12/13/21 08:00 Pulse Ox 90 L 12/13/21 09:00 Intake & Output 12/12/21 12/13/21 12/13/21 18:59 06:59 18:59 Intake Total 236 330 Output Total 1250 1025 Balance -1014 -1025 330 Intake: Oral 236 330 Output: Urine 1250 1025 Other: Voiding Method Toilet Bedside Commode External Catheter Diaper # Voids 1 - Labs CBC & Chem 7: 12/13/21 09:11 12/13/21 09:11 Labs: Abnormal Lab Results - Last 24 Hours (Table) 12/12/21 12/12/21 12/13/21 Range/Units 16:24 20:21 06:09 MCV (80.0-100.0) fL MCHC (31.0-37.0) g/dL Lymphocytes # (1.0-4.8) k/uL Chloride (98-107) mmol/L Carbon Dioxide (22-30) mmol/L BUN (7-17) mg/dL Glucose (74-99) mg/dL POC Glucose (mg/dL) 134 H 113 H 119 H (75-99) mg/dL 12/13/21 12/13/21 Range/Units 09:11 09:11 MCV 100.9 H (80.0-100.0) fL MCHC 30.0 L (31.0-37.0) g/dL Lymphocytes # 0.7 L (1.0-4.8) k/uL Chloride 95 L (98-107) mmol/L Carbon Dioxide 39 H (22-30) mmol/L BUN 28 H (7-17) mg/dL Glucose 123 H (74-99) mg/dL POC Glucose (mg/dL) (75-99) mg/dL Assessment and Plan Time with Patient: Less than 30
[2021-12-13 20:45] LABS: Glucose,Whole Blood 113 mg/dL (75-99)
[2021-12-13] MEDS: ATORVASTATIN 40 MG TAB PO SCH (21:03)
[2021-12-13] MEDS: MELATONIN 5 MG TABLET PO SCH ×2 (21:03→21:11)
[2021-12-13] MEDS: POTASSIUM CHLORIDE ER 20 MEQ TAB.ER PO SCH (21:03)
[2021-12-13] MEDS: DULoxetine HCL 20 MG CAPSULE.DR PO SCH (21:03)
[2021-12-14] MEDS: NON FORMULARY DRUG (Lidocaine/Menthol [Lidocaine-Menthol 4%-1% Patch] 1 EACH Patch) TRANSDERM SCH (05:50)
[2021-12-14] MEDS: PREGABALIN 75 MG CAP PO SCH ×2 (05:57→14:22)
[2021-12-14] MEDS: FAMOTIDINE 20 MG TAB PO SCH (05:57)
[2021-12-14] MEDS: LEVOTHYROXINE 75 MCG TAB PO SCH (05:57)
[2021-12-14 06:49] LABS: Glucose,Whole Blood 122 mg/dL (75-99)
--- NOTE | 2021-12-14 07:24 | XR ---
EXAMINATION TYPE: XR chest 2V DATE OF EXAM: 12/14/2021 COMPARISON: Chest x-ray 3 days ago HISTORY: Hypoxia. TECHNIQUE: Frontal and lateral views of the chest are obtained. FINDINGS: There is persistent cardiomegaly with mild to moderate central vascular congestion and mil d to moderate interstitial edema. The osseous structures remaining demineralized. Overlying loop re dariana again seen. There is additional left lower lobe opacity confirmed on 2 views along with mitral annular calcifications. IMPRESSION: Findings consistent with persistent CHF exacerbation as there is cardiomegaly with centr al vascular congestion and interstitial edema redemonstrated. There is additional persistent left low er lobe acute infiltrate noted. No significant change from most recent x-ray.
[2021-12-14 08:23] VITALS: RESP 16; TEMP 98.2
[2021-12-14] MEDS: LORATADINE 10 MG TAB PO SCH (08:23)
[2021-12-14] MEDS: acetaZOLAMIDE 250 MG TAB PO SCH (08:23)
[2021-12-14] MEDS: METOPROLOL SUCCINATE (ER) 25 MG TAB.ER.24H PO SCH (08:24)
[2021-12-14] MEDS: APIXABAN 2.5 MG TABLET PO SCH (08:24)
[2021-12-14] MEDS: LACTULOSE 20 GM/30 ML CUP PO SCH ×2 (08:24→14:22)
[2021-12-14] MEDS: FUROSEMIDE 40 MG TAB PO SCH (08:24)
[2021-12-14] MEDS: methylPREDNISolone SOD SUCCI 40 MG/ML 1 ML VIAL IV SCH (08:24)
[2021-12-14] MEDS: CHOLECALCIFEROL 25 MCG (1000 IU) TABLET PO SCH (08:26)
[2021-12-14 09:02] LABS: Calcium 9.4 mg/dL (8.4-10.2); Potassium 3.5 mmol/L (3.5-5.1)
[2021-12-14] MEDS: SYMBICORT 160-4.5 MCG INHALER INHALATION SCH (09:04)
[2021-12-14] MEDS: IPRATROPIUM-ALBUTEROL 3 ML NEB INHALATION SCH ×2 (09:09→11:34)
[2021-12-14 11:41] VITALS: BP 151/66
[2021-12-14 11:46] VITALS: PULSE 68
[2021-12-14] MEDS ORDERED: POTASSIUM CHLORIDE ER 20 MEQ TAB.ER PO STA (11:52)
--- NOTE | 2021-12-14 13:14 | P.PN ---
Subjective Progress Note Date: 12/14/21 This 86-year-old female patient with past medical history of COPD on home oxygen, history of COVID 19 pneumonia in May 2021, chronic CHF, chronic atrial fibrillation, prior history of CVA/TIA, sleep apnea, lifetime nonsmoker, previous episode of pneumonia, history of ovarian cancer with surgery and c hemoradiation, chronic pain syndrome with chronic back pain and bilateral hip and shoulder pain. Patient used to wear 3 L of oxygen on a regular basis for history of COPD however lately she had been up to 6 L on a regular basis. Patient's daughter is at the bedside and is providing history of present illness. On 12/08/2021 patient came into the emergency department by EMS for evaluation of worsening shortness of breath, a cough, and lower extremity swelling. Denied any fever or chills. Her chest x-ray showed a pulmonary edema, and mild patchy bilateral atelectasis. Blood work has been reviewed, showing white blood cell count of 3.8, hemoglobin of 10.5, CO2 is 35 with a respiratory left with the renal profile unremarkable, LFTs were within normal limits, lactic acid 0.7, proBNP was 3920, troponin was negative at 0.012, patient tested negative for COVID 19, influenza A and B. Patient was started on IV Lasix 40 mg every 12 hours, nebulized bronchodilators, she continues on an requests for history of chronic atrial fibrillation. And she is started on IV Solu-Medrol 40 mg twice daily. Patient is a -2000 and the net fluid balance over the last 24 hours, further extremities have an Don wrapped, she has 1+ to 2+ lower extremity and pedal edema. Patient is currently on 6 L of oxygen the pulse ox of 96%. On 12/10/2021 patient is seen in follow-up on selective care unit. Patient has a chest congestion, cough, she states she is doing about the same, without significant improvement or worsening. She is currently on 5 L of oxygen her pulse ox is 89%, she is on diuretics, with Lasix which has been dropped down to twice daily per cardiology. Follow-up chest x-ray today showing enlarged heart, persistent interstitial pattern. Patient is an +950 ML net fluid balance over t he last 24 hours. Today's labs have been reviewed, white blood cell count is 5.2, hemoglobin is 10.6, CO2 is 38, and respiratory electrolytes and renal profile were unremarkable. LFTs are within normal limits. Lower extremity edema seems to have slightly improved. Lower extremities are Don wrapped, still has significant pedal edema The patient is seen today in 12/14/2021 in follow-up on the selective care unit. We're asked to reevaluate the patient for possible pneumonia. Chest x-ray co ntinues to show evidence of fluid volume overload consistent with persistent congestive heart failure and cardiomegaly. Mild to moderate central vascular congestion. Mild to moderate interstitial edema. She is diuresing well. Her edema has improved. She is currently in a -2 L balance. Sodium 142. Potassium 3.5. BUN 30. Creatinine 0.86. Glucose 141. ProBNP 2790. No fever. No elevated white count. Objective - Vital Signs Vital signs: Vital Signs Temp 98.2 F 12/14/21 08:22 Pulse 68 12/14/21 11:46 Resp 16 12/14/21 11:37 BP 151/66 12/14/21 11:37 Pulse Ox 93 L 12/14/21 11:37 Intake & Output 12/13/21 12/14/21 12/14/21 18:59 06:59 18:59 Intake Total 330 Output Total 1000 Balance 330 -1000 Weight 103.3 kg Intake: Oral 330 Output: Urine 1000 Other: Voiding Method Bedside Commode Diaper External Catheter - Exam GENERAL EXAM: Alert, very pleasant, 86-year-old female, sitting up in the recliner, 4 L of oxygen with pulse ox 93% comfortable in no apparent distress. HEAD: Normocephalic/atraumatic. EYES: Normal reaction of pupils, equal size. Conjunctiva pink, sclera white. NOSE: Clear with pink turbinates. THROAT: No erythema or exudates. NECK: No masses, no JVD, no thyroid enlargement, no adenopathy. CHEST: No chest wall deformity. Symmetrical expansion. LUNGS: Equal air entry with crackles in the bilateral bases CVS: Irregular rate and rhythm, normal S1 and S2, no gallops, no murmurs, no rubs ABDOMEN: Soft, nontender. No hepatosplenomegaly, normal bowel sounds, no guarding or rigidity. EXTREMITIES: No clubbing, trace lower extremity edema, no cyanosis, 2+ pulses and upper and lower extremities. MUSCULOSKELETAL: Muscle strength and tone normal. SPINE: No scoliosis or deformity SKIN: No rashes CENTRAL NERVOUS SYSTEM: No focal deficits, tone is normal in all 4 extremities. PSYCHIATRIC: Alert and oriented -3. Appropriate affect. Intact judgment and insight. - Labs CBC & Chem 7: 12/13/21 09:11 12/14/21 08:25 Labs: Abnormal Lab Results - Last 24 Hours (Table) 12/13/21 12/13/21 12/14/21 Range/Units 16:22 20:19 06:27 Carbon Dioxide (22-30) mmol/L BUN (7-17) mg/dL Glucose (74-99) mg/dL POC Glucose (mg/dL) 129 H 113 H 122 H (75-99) mg/dL 12/14/21 Range/Units 08:25 Carbon Dioxide 35 H (22-30) mmol/L BUN 30 H (7-17) mg/dL Glucose 141 H (74-99) mg/dL POC Glucose (mg/dL) (75-99) mg/dL Assessment and Plan Assessment: 1. Acute exacerbation of diastolic CHF 2. History of moderately severe aortic stenosis and moderate pulmonary hypertension 3. Chronic atrial fibrillation on Eliquis 4. Chronic diastolic CHF 5. History of CVA/TIA 6. Hypertension 7. Obstructive sleep apnea On BiPAP at bedtime 8. Acute on chronic hypoxic respiratory failure related to acute exacerbation of CHF 9. History of ovarian cancer status post hysterectomy, and chemoradiation 10. History of incisional hernia repair with mesh 11. Never smoker 12. History of COVID 19 pneumonia in May 2021 13. Questionable history of COPD as the patient was never a smoker Plan: The patient was seen and evaluated Chest x-ray, medications and labs reviewed Continue diuretics Check a pro-calcitonin Plan is for discharge to [facility] once cleared by cardiology I have personally seen and examined the patient, performed the documentation and the assessment and plan as written. Number of minutes spent on the visit: 10.
--- NOTE | 2021-12-14 13:41 | P.PN ---
Subjective HISTORY OF PRESENT ILLNESS: This is a 86-year-old female with a past medical history significant for aortic stenosis, congestive heart failure, paroxysmal atrial fibrillation, obstructive sleep apnea, and COPD with home oxygen use. Patient follows in the office with Dr. Watts. We have been asked to see the patient in consultation for congestive heart failure. Patient examined at the bedside. The patient states she presented to the hospital secondary to shortness of breath. She states she has been feeling short of breath for the past 2-3 days. She also reports frequent coughing with no sputum production. She states she has been compliant at home with her medications and her heart failure diet. The patient was found to be in acute CHF in the emergency room and she was started on IV Lasix. * EKG reveals sinus mechanism with first-degree AV block. Right bundle branch block. Left anterior fascicular block. * Chest xray pulmonary edema that could be congestive heart failure that is increased compared to old exam. Mild patchy bilateral atelectasis. * Laboratory data: WBC 3.8. Hemoglobin 10.5. Platelet count 136. Sodium 142. Potassium 3.7. BUN 12. Creatinine 0.73. ProBNP 3920. Troponin negative 1. * Current home cardiac medications include Eliquis 2.5 mg twice a day, Lipitor 40 mg at night, Lasix 40 mg twice a day, metoprolol succinate 25 mg daily, Diamox 250 mg daily * Most recent echocardiogram obtained in October 2021 revealed ejection fraction 55-60% with moderate aortic stenosis * Cardiac catheterization history: January 2011 revealing 30% proximal LAD stenosis 12/10/2021 Patient examined this morning at the bedside. Patient appears to be somewhat confused this morning. She denies chest pain or pressure. She reports some improvement in her shortness of breath. She continues to have a frequent cough. She remains on Lasix 40 mg every 8 hours. Creatinine 0.67 today. 12/11/2021 Patient examined this morning at the bedside. Patient denies chest pain or pressure. She reports mild shortness of breath. She continues to have a frequent cough. She remains on IV Lasix 40 mg every 12 hours. Fluid balance over the last 24 hours is -1620 mL. Blood pressure 147/73. 12/12/2021 Patient examined this morning at the bedside. Patient denies chest pain or pressure. She reports mild shortness of breath. She has audible wheezing when talking to the patient at the bedside. Chest xray reveals bilateral infiltrates unchanged from prior exam. She is receiving IV steroids. Pulmonary has signed off the case. 12/13/2021 Patient examined this morning at the bedside. Patient denies chest pain or pressure. She states her SOB has resolved. She remains on oral lasix and IV steroids. 12/14/2021 Patient seen and examined sitting up in recliner chair with family at bedside. She endorses improvement in shortness of breath. She is on oral diuretics. Blood pressure 151/66 heart rate 59 afebrile maintaining oxygen saturation on room air. Laboratory data reviewed, sodium 142, potassium 3.5, creatinine 0.86 and proBNP 2790. Chest x-ray this morning reveals ongoing central vascular congestion and interstitial edema with an infiltrate noted in the left lower lung. PHYSICAL EXAM: VITAL SIGNS: Reviewed. GENERAL: Well-developed in no acute distress. HEENT: Head is normocephalic. Pupils are equal, round. Sclerae anicteric. Mucous membranes of the mouth are moist. Neck supple. No JVD or thyromegaly LUNGS: Respirations even and unlabored. Lungs diminished bilaterally with no crackles or wheezes. HEART: Regular rate and rhythm. S1 and S2 heard. Systolic murmur noted EXTREMITIES: Normal range of motion. No clubbing or cyanosis. Peripheral pulses intact. Trace Bilateral lower extremity edema noted ASSESSMENT: Shortness of breath COPD exacerbation Acute on chronic congestive heart failure with preserved ejection fraction Acute on chronic hypercapnic and hypoxic respiratory failure Paroxysmal atrial fibrillation Aortic stenosis Obstructive sleep apnea Hypertension Hyperlipidemia Hypothyroidism PLAN: Patient is clinically euvolemic. Continue by mouth diuretics. Consider pulmonary reevaluation for ongoing pulmonary infiltrate. Stable from a cardiac perspective. Nurse practitioner note has been reviewed by physician. Signing provider agrees with the documented findings, assessment, and plan of care. Objective - Vital Signs Vital signs: Vital Signs Temp 98.2 F 12/14/21 08:22 Pulse 68 12/14/21 11:46 Resp 16 12/14/21 11:37 BP 151/66 12/14/21 11:37 Pulse Ox 93 L 12/14/21 11:37 Intake & Output 12/13/21 12/14/21 12/14/21 18:59 06:59 18:59 Intake Total 330 Output Total 1000 Balance 330 -1000 Weight 103.3 kg Intake: Oral 330 Output: Urine 1000 Other: Voiding Method Bedside Commode Diaper External Catheter - Labs CBC & Chem 7: 12/13/21 09:11 12/14/21 08:25 Labs: Abnormal Lab Results - Last 24 Hours (Table) 12/13/21 12/13/21 12/14/21 Range/Units 16:22 20:19 06:27 Carbon Dioxide (22-30) mmol/L BUN (7-17) mg/dL Glucose (74-99) mg/dL POC Glucose (mg/dL) 129 H 113 H 122 H (75-99) mg/dL 12/14/21 Range/Units 08:25 Carbon Dioxide 35 H (22-30) mmol/L BUN 30 H (7-17) mg/dL Glucose 141 H (74-99) mg/dL POC Glucose (mg/dL) (75-99) mg/dL
--- NOTE | 2021-12-14 14:03 | P.DS ---
Providers Date of admission: 12/08/21 18:01 Attending physician: Mario Vaz MD Consults: 12/08/21 18:01 Consult Physician Routine Consulting Provider: Aj Bearden Consult Reason/Comments: copd Do you want consulting provider notified?: Yes Consult Physician Routine Consulting Provider: Nav Shields Consult Reason/Comments: chf Do you want consulting provider notified?: Yes Primary care physician: Jerome Li Hospital Course: Final Diagnosis -Acute on chronic hypoxic and hypercapnic respiratory failure secondary to CHF as well as COPD exacerbation, currently on 5L of nasal cannula -Hemoptysis secondary to bronchitis -Congestive heart failure chronic diastolic dysfunction with acute exacerbation -Paroxysmal atrial fibrillation, rate controlled -Metabolic encephalopathy probably secondary to hypercapnia, improved -COPD with acute exacerbation, oxygen dependent -Obstructive sleep apnea and uses a CPAP at nighttime, 3 liters of oxygen at during the day -History of cardiac catheterization status post stenting -Hypertension -Moderate pulmonary hypertension -Hyperlipidemia -Hypothyroidism -Depression -Metabolic acidosis secondary to hypercapnia, metabolic acidosis is chronic -History fibromyalgia -History of GERD -History ovarian cancer status post surgery, chemo and radiation Discharge Disposition Patient is stable for discharge back to rehab today. She continues on 4L nasal cannula which saturation 93%. Continue with BiPAP at night. Discharged on oral lasix, 40 mg BID and oral steroid taper. She will continue on albuterol inhaler, and duonebs. Hospital Course This is a pleasant 86 year old female with known history of COPD, chronic diastolic dysfunction and history of moderate pulmonary hypertension. [facility] with shortness of breath and hypoxia, requiring 6L of nasal cannula. Initial xray showing pulmonary edema and presents with wheezing. Denies fever, denies chills, denies chest pain, she had some cough with hemoptysis as well. She wears BiPAP at night. senior living reports some confusion yesterday. Patient was started on duonebs, IV steroids and IV lasix and consult placed to cardiology and pulmonary services. Labs on admission hgb 10.5, INR 1.0, CO2 35, glucose 107. Troponin negative, BNP on admission 3920. Covid and Influenza A and B are negative. Patient is down a total of 13 kg this admission. She had some significant audible wheezing on the and during this hospital stay, and continues on IV steroids and duonebs. She was then transitioned to oral lasix. Lungs now with faint crackles but no wheezing noted today. Overall clinically she has improved. Patient has not had a white count this admission. She had a repeat chest xray today showing stable, and BNP has improved today down to 2790. 12/14/2021 Patient is evaluated today sitting up in chair she is now on 3L nasal cannula and wearing BiPAP at night and tolerating well. Her lungs have improved with increased aeration from yesterday no wheezing. She will complete an oral steroid taper with duonebs as needed, and also has been transitioned to oral lasix. She is alert and oriented. She denies chest pain, denies nausea, vomiting, or diarrhea. She is urinating without difficulty, bowels are moving, tolerating diet. S1 S2 auscultated, abdomen is soft and nontender, left lower extremity edema has also improved. Patient is instructed to elevate feet when sitting. She has been working with physical therapy. Had a long discussion yesterday with patient and family at the bedside regarding diet and monitoring weight and sodium intake. She is inderstanding. Labs today showing white count of 4.7, hgb 11.9, sodium 142, potassium 3.5, co2 35, blood glucose 120s. Blood pressure today 151/66, heart rate 68, afebrile, 93% oxygenation. Please see medication reconciliation for a list of current medication. Thank you for allowing us to participate in the care of this patient. The impression and plan of care has been dictated by Mireille Pritchard, Nurse Practitioner as directed. Dr. Radha MD I have performed a history and physical examination and medical decision making of this patient, discussed the same with the dictator, and agree with the dictators assessment and plan as written, documented as a scribe. Based on total visit time, I have performed more than 50% of this visit. Patient Condition at Discharge: Fair Plan - Discharge Summary Discharge Rx Participant: No New Discharge Prescriptions: New predniSONE 0 mg PO DIRECTED 9 Days #17 tab Furosemide [Lasix] 40 mg PO BID@0900,1600 tab Continue Atorvastatin [Lipitor] 40 mg PO HS DULoxetine HCL [Cymbalta] 20 mg PO HS Fluticasone Nasal [place] [Flonase Nasal [place]] 1 spr EA NOSTRIL DAILY PRN PRN Reason: Allergy Symptoms Metoprolol Succinate [Toprol XL] 25 mg PO DAILY rOPINIRole HCL [Requip] 3 mg PO BID Cholecalciferol [Vitamin D3 (25 Mcg = 1000 Iu)] 25 mcg PO DAILY Budesonide-Formot 160-4.5 Mcg [Symbicort 160-4.5 Mcg Inhaler] 2 puff INHALATION RT-BID Ascorbic Acid [Vitamin C] 500 mg PO DAILY Ipratropium-Albuterol Nebulize [Duoneb 0.5 mg-3 mg/3 ml Soln] 3 ml INHALATION RT-QID PRN ml PRN Reason: Shortness Of Breath Or Wheezing Cetirizine HCl 10 mg PO DAILY Lidocaine/Menthol [Lidocaine-Menthol 4%-1% Patch] 1 patch TRANSDERM BID@0600,2200 Pregabalin [Lyrica] 150 mg PO TID@0600,1400,2200 #6 cap Albuterol Inhaler [Ventolin Hfa Inhaler] 2 puff INHALATION RT-QID PRN PRN Reason: Shortness Of Breath acetaZOLAMIDE [Diamox] 250 mg PO DAILY Ipratropium-Albuterol Nebulize [Duoneb 0.5 mg-3 mg/3 ml Soln] 3 ml INHALATION RT-QID Docusate [Colace] 100 mg PO DAILY PRN cap PRN Reason: Constipation Apixaban [Eliquis] 2.5 mg PO BID tablet Albuterol Nebulized [Ventolin Nebulized] 2.5 mg INHALATION RT-QID PRN ml PRN Reason: Shortness Of Breath Cyanocobalamin [Vitamin B-12] 1,000 mcg PO DAILY tab Lactulose [Cephulac] 20 gm PO QID ml Magnesium Hydroxide [Milk of Magnesia] 2,400 mg PO DAILY Melatonin 2.5 mg PO HS Famotidine [Pepcid] 20 mg PO DAILY@0600 Levothyroxine Sodium [Synthroid] 75 mcg PO DAILY@0600 Pantoprazole [Protonix] 40 mg PO DAILY@0600 Potassium Chloride ER [K-Dur 20] 20 meq PO HS HYDROcodone/APAP 7.5-325MG [[place] 7.5-325] 1 tab PO BID PRN #4 tab PRN Reason: Pain Discontinued Furosemide [Lasix] 40 mg PO BID@0600,1400 Discharge Medication List Atorvastatin [Lipitor] 40 mg PO HS 08/17/17 [History] DULoxetine HCL [Cymbalta] 20 mg PO HS 10/16/17 [History] Fluticasone Nasal [place] [Flonase Nasal [place]] 1 spr EA NOSTRIL DAILY PRN 12/12/19 [History] Metoprolol Succinate [Toprol XL] 25 mg PO DAILY 12/12/19 [History] rOPINIRole HCL [Requip] 3 mg PO BID 06/15/21 [History] Albuterol Inhaler [Ventolin Hfa Inhaler] 2 puff INHALATION RT-QID PRN 07/17/21 [History] Ascorbic Acid [Vitamin C] 500 mg PO DAILY 08/21/21 [History] Budesonide-Formot 160-4.5 Mcg [Symbicort 160-4.5 Mcg Inhaler] 2 puff INHALATION RT-BID 08/21/21 [History] Cholecalciferol [Vitamin D3 (25 Mcg = 1000 Iu)] 25 mcg PO DAILY 08/21/21 [History] Ipratropium-Albuterol Nebulize [Duoneb 0.5 mg-3 mg/3 ml Soln] 3 ml INHALATION RT-QID 08/21/21 [History] acetaZOLAMIDE [Diamox] 250 mg PO DAILY 08/21/21 [History] Albuterol Nebulized [Ventolin Nebulized] 2.5 mg INHALATION RT-QID PRN ml 11/12/21 [Rx] Apixaban [Eliquis] 2.5 mg PO BID tablet 11/12/21 [Rx] Cyanocobalamin [Vitamin B-12] 1,000 mcg PO DAILY tab 11/12/21 [Rx] Docusate [Colace] 100 mg PO DAILY PRN cap 11/12/21 [Rx] Ipratropium-Albuterol Nebulize [Duoneb 0.5 mg-3 mg/3 ml Soln] 3 ml INHALATION RT-QID PRN ml 11/19/21 [Rx] Lactulose [Cephulac] 20 gm PO QID ml 11/19/21 [Rx] Cetirizine HCl 10 mg PO DAILY 12/08/21 [History] Famotidine [Pepcid] 20 mg PO DAILY@0600 12/08/21 [History] Levothyroxine Sodium [Synthroid] 75 mcg PO DAILY@0600 12/08/21 [History] Lidocaine/Menthol [Lidocaine-Menthol 4%-1% Patch] 1 patch TRANSDERM BID@0600,2200 12/08/21 [History] Magnesium Hydroxide [Milk of Magnesia] 2,400 mg PO DAILY 12/08/21 [History] Melatonin 2.5 mg PO HS 12/08/21 [History] Pantoprazole [Protonix] 40 mg PO DAILY@0600 12/08/21 [History] Potassium Chloride ER [K-Dur 20] 20 meq PO HS 12/08/21 [History] Furosemide [Lasix] 40 mg PO BID@0900,1600 tab 12/14/21 [Rx] HYDROcodone/APAP 7.5-325MG [[place] 7.5-325] 1 tab PO BID PRN #4 tab 12/14/21 [Rx] Pregabalin [Lyrica] 150 mg PO TID@0600,1400,2200 #6 cap 12/14/21 [Rx] predniSONE 0 mg PO DIRECTED 9 Days #17 tab 12/14/21 [Rx] Follow up Appointment(s)/Referral(s): Eli Casas MD [STAFF PHYSICIAN] - 1 Week Jerome Li MD [Primary Care Provider] - 1-2 days Jhonatan Harrison DO [STAFF PHYSICIAN] - 1 Week Ambulatory/Diagnostic Orders: Basic Metabolic Panel [LAB.AMB] Time Frame: 2 Days, Location: None Selected Patient Instructions/Handouts: Heart Failure (DC), COPD (Chronic Obstructive Pulmonary Disease) (DC) Activity/Diet/Wound Care/Special Instructions: Patient can return to rehab today Continue on 4L Nasal Cannula Monitor weight daily and keep log Notifiy provider of 2 to 3 lbs overnight and 5 to 7 lbs in 1 week Continue with low sodium diet Discharge Disposition: TRANSFER TO SNF/ECF
== END 2021-12-14 16:40 | DRG 291 ==
LOC: EC 15:16 → 3SCARD 18:01
PROVIDERS: ADMIT Internal Medicine; ATTEND Internal Medicine
PROC: 5A09357 Assistance with Respiratory Ventilation, Less than 24 Consecutive Hours, Continuous Positive Airway Pressure (ICD-10-PCS; principal; 2021-12-11)
DX: I11.0 Hypertensive heart disease with heart failure (principal); J96.22 Acute and chronic respiratory failure with hypercapnia; J96.21 Acute and chronic respiratory failure with hypoxia; I50.33 Acute on chronic diastolic (congestive) heart failure; G93.41 Metabolic encephalopathy; J44.1 Chronic obstructive pulmonary disease with (acute) exacerbation; E87.2 Acidosis; E66.2 Morbid (severe) obesity with alveolar hypoventilation; Z68.41 Body mass index [BMI] 40.0-44.9, adult; I48.20 Chronic atrial fibrillation, unspecified; I45.2 Bifascicular block; E03.9 Hypothyroidism, unspecified; G25.81 Restless legs syndrome; G89.4 Chronic pain syndrome; M25.552 Pain in left hip; M25.551 Pain in right hip; M25.519 Pain in unspecified shoulder; I27.20 Pulmonary hypertension, unspecified; I35.0 Nonrheumatic aortic (valve) stenosis; I44.0 Atrioventricular block, first degree; J84.10 Pulmonary fibrosis, unspecified; Z20.822 Contact with and (suspected) exposure to COVID-19; E78.5 Hyperlipidemia, unspecified; M79.7 Fibromyalgia; F32.A Depression, unspecified; L40.9 Psoriasis, unspecified; K21.9 Gastro-esophageal reflux disease without esophagitis; Z96.653 Presence of artificial knee joint, bilateral; Z99.81 Dependence on supplemental oxygen; Z85.43 Personal history of malignant neoplasm of ovary; Z92.3 Personal history of irradiation; Z92.21 Personal history of antineoplastic chemotherapy; Z87.01 Personal history of pneumonia (recurrent); Z86.16 Personal history of COVID-19; Z86.011 Personal history of benign neoplasm of the brain; Z86.73 Personal history of transient ischemic attack (TIA), and cerebral infarction without residual deficits; Z79.01 Long term (current) use of anticoagulants; Z79.51 Long term (current) use of inhaled steroids; Z79.890 Hormone replacement therapy; Z79.899 Other long term (current) drug therapy; Z87.19 Personal history of other diseases of the digestive system; Z90.710 Acquired absence of both cervix and uterus; Z98.42 Cataract extraction status, left eye; Z98.41 Cataract extraction status, right eye; Z98.890 Other specified postprocedural states; Z95.5 Presence of coronary angioplasty implant and graft; Z82.0 Family history of epilepsy and other diseases of the nervous system; Z82.49 Family history of ischemic heart disease and other diseases of the circulatory system
CPT/HCPCS: 36415; 71045; 71046; 80048; 80053; 83605; 83735; 83880; 84145; 84484; 85025; 85610; 85730; 87502; 87635; 93005; 94640; 94660; 94760; 96374; 96375; 99285

== ENCOUNTER 2022-01-26 22:14 | Inpatient (IN) | payer MEDICARE ==
--- NOTE | 2022-01-26 22:39 | ED ---
General Adult HPI - General Chief complaint: Weakness Stated complaint: Weakness Time Seen by Provider: 01/26/22 22:20 Source: EMS Mode of arrival: EMS Limitations: no limitations - History of Present Illness Initial comments: This patient is an 87-year-old woman who states she is here to have evaluation after she had a home Covid test that was positive. The patient states that her son had been at her home and had tested positive. She over the course of the last day has developed congestion, cough, feeling hot and cold. She took a home test and it was positive. Patient denies dyspnea. No abdominal pain, nausea or vomiting. Onset/Timin -: days(s) Severity scale (1-10): 0 Consistency: constant Improves with: none Worsens with: none Associated Symptoms: cough Treatments Prior to Arrival: none - Related Data Home Medications Medication Instructions Recorded Confirmed Atorvastatin [Lipitor] 40 mg PO HS@209908/17/17 01/27/22 DULoxetine HCL [Cymbalta] 20 mg PO HS@209910/16/17 01/27/22 Metoprolol Succinate [Toprol XL] 25 mg PO DAILY@89912/12/19 01/27/22 rOPINIRole HCL [Requip] 3 mg PO BID@06/15/21 01/27/22 Ascorbic Acid [Vitamin C] 500 mg PO DAILY@89908/21/21 01/27/22 Budesonide-Formot 160-4.5 Mcg 2 puff INHALATION RT-BID 08/21/21 01/27/22 [Symbicort 160-4.5 Mcg Inhaler] Cholecalciferol [Vitamin D3 (25 25 mcg PO DAILY@89908/21/21 01/27/22 Mcg = 1000 Iu)] acetaZOLAMIDE [Diamox] 250 mg PO DAILY@89908/21/21 01/27/22 Famotidine [Pepcid] 20 mg PO DAILY@59912/08/21 01/27/22 Levothyroxine Sodium [Synthroid] 75 mcg PO DAILY@59912/08/21 01/27/22 Melatonin 5 mg PO HS@219912/08/21 01/27/22 Pantoprazole [Protonix] 40 mg PO DAILY@59912/08/21 01/27/22 Potassium Chloride ER [K-Dur 20] 20 meq PO HS@2100 12/08/21 01/27/22 Albuterol Nebulized [Ventolin 2.5 mg INHALATION RT-QID 01/27/22 01/27/22 Nebulized] Apixaban [Eliquis] 2.5 mg PO BID@0900,2100 01/27/22 01/27/22 Cyanocobalamin [Vitamin B-12] 500 mcg PO DAILY@0900 01/27/22 01/27/22 Furosemide [Lasix] 40 mg PO BID@0900,1200 01/27/22 01/27/22 HYDROcodone/APAP 7.5-325MG [[place] 1 tab PO Q12H PRN 01/27/22 01/27/22 7.5-325] Lactulose [Cephulac] 20 gm PO TID@0600,1200,2100 01/27/22 01/27/22 Pregabalin [Lyrica] 150 mg PO TID@0600,1200,2200 01/27/22 01/27/22 Allergies Allergy/AdvReac Type Severity Reaction Status Date / Time Penicillins Allergy Swelling/it Verified 01/27/22 08:33 lolis Review of Systems ROS Statement: Those systems with pertinent positive or pertinent negative responses have been documented in the HPI. ROS Other: All systems not noted in ROS Statement are negative. Constitutional: Reports: fever, chills ENT: Reports: congestion. Denies: throat pain Respiratory: Reports: cough. Denies: dyspnea, wheezes Cardiovascular: Denies: chest pain Gastrointestinal: Denies: abdominal pain, vomiting, diarrhea Genitourinary: Denies: dysuria Skin: Denies: rash Neurological: Denies: headache Past Medical History Past Medical History: Atrial Fibrillation, Cancer, Heart Failure, COPD, Fibromyalgia, GERD/Reflux, Hyperlipidemia, Hypertension, Osteoarthritis (OA), Pneumonia, Respiratory Disorder, Skin Disorder, Sleep Apnea/CPAP/BIPAP Additional Past Medical History / Comment(s): Chronic hypoxic and hypercanpnic respiratory failure/obesity hypoventilation syndrome, home O2 at 4L/NC daytime and Bipap at night, past pneumonias and covid pneumonia 05/2021, pulmonary fibrosis, cardiac valve disease, ovarian cancer with surgery/chemo/radiation, benign brain tumor removed, PVCs, chronic back pain/bilateral hips and shoulders, RLS, psoriasis, sacral decub, 1998 Cdiff colitis. History of Any Multi-Drug Resistant Organisms: C-DIFF Date of last positivie culture/infection: stool MDRO Source:: 1998 Past Surgical History: Back Surgery, Heart Catheterization, Hernia Repair, Hysterectomy, Joint Replacement, Tonsillectomy Additional Past Surgical History / Comment(s): Total hysterectomy, incisional hernia with mesh which later became imfected and had exploratory laparatomy/wound vac, back surgeries x2, EGD, colonoscopy, hemorrhoidectomy, loop recorder, brain tumor removed, bilateral total knee arthroplasties, bilateral cataract surgery. Past Anesthesia/Blood Transfusion Reactions: No Reported Reaction Past Psychological History: Depression Smoking Status: Never smoker Past Alcohol Use History: None Reported Past Drug Use History: None Reported - Past Family History Father Family Medical History: Myocardial Infarction ([place]) Additional Family Medical History / Comment(s): Father of a [place] at the age of 56yrs. Mother Additional Family Medical History / Comment(s): parkinson's Sister(s) Family Medical History: Cancer General Exam Limitations: no limitations General appearance: alert, in no apparent distress Head exam: Present: atraumatic, normocephalic Eye exam: Present: normal appearance. Absent: scleral icterus, conjunctival injection Neck exam: Present: normal inspection, full ROM Respiratory exam: Present: normal lung sounds bilaterally. Absent: respiratory distress, wheezes, rales, rhonchi, stridor Cardiovascular Exam: Present: regular rate, normal rhythm, normal heart sounds. Absent: systolic murmur, diastolic murmur, rubs, gallop GI/Abdominal exam: Present: soft. Absent: distended, tenderness, guarding, rebound, rigid, mass Extremities exam: Present: normal inspection, normal capillary refill. Absent: pedal edema, calf tenderness Back exam: Present: normal inspection. Absent: CVA tenderness (R), CVA tenderness (L) Neurological exam: Present: alert Skin exam: Present: warm, dry, intact, normal color. Absent: rash Course Vital Signs 01/26/22 01/26/22 01/27/22 22:24 23:30 00:30 Temperature 99 F Pulse Rate 66 64 64 Respiratory 16 22 22 Rate Blood Pressure 109/48 100/85 109/48 O2 Sat by Pulse 94 L 94 L 94 L Oximetry 01/27/22 01/27/22 01/27/22 00:51 01:00 02:00 Temperature Pulse Rate 70 70 Respiratory 24 16 16 Rate Blood Pressure 109/48 116/42 O2 Sat by Pulse 93 L 94 L Oximetry 01/27/22 01/27/22 03:00 05:50 Temperature Pulse Rate 67 70 Respiratory 18 24 Rate Blood Pressure 110/50 107/83 O2 Sat by Pulse 96 95 Oximetry EKG Findings - EKG Results: EKG: interpreted by ERMD, sinus rhythm (Rate 63 bpm) - Blocks, [place], Hypertrophy, ST Abn: AV and intraventricular conduction: 1 AV block, right bundle branch block (fixed/intermittent, complete/incomplete), left anterior fascicular block Medical Decision Making - Lab Data Result diagrams: 01/26/22 22:39 01/26/22 22:39 Lab Results 01/26/22 01/26/22 01/26/22 Range/Units 22:39 22:39 22:39 WBC 6.3 (3.8-10.6) k/uL RBC 3.67 L (3.80-5.40) m/uL Hgb 10.2 L (11.4-16.0) gm/dL Hct 33.4 L (34.0-46.0) % MCV 91.0 D (80.0-100.0) fL MCH 27.9 (25.0-35.0) pg MCHC 30.6 L (31.0-37.0) g/dL RDW 15.8 H (11.5-15.5) % Plt Count 145 L (150-450) k/uL MPV 9.8 Neutrophils % 81 % Lymphocytes % 10 % Monocytes % 6 % Eosinophils % 2 % Basophils % 0 % Neutrophils # 5.1 (1.3-7.7) k/uL Lymphocytes # 0.6 L (1.0-4.8) k/uL Monocytes # 0.4 (0-1.0) k/uL Eosinophils # 0.1 (0-0.7) k/uL Basophils # 0.0 (0-0.2) k/uL Hypochromasia Marked Sodium 138 (137-145) mmol/L Potassium 3.6 (3.5-5.1) mmol/L Chloride 102 (98-107) mmol/L Carbon Dioxide 32 H (22-30) mmol/L Anion Gap 4 mmol/L BUN 15 (7-17) mg/dL Creatinine 0.85 (0.52-1.04) mg/dL Est GFR (CKD-EPI)AfAm 72 (>60 ml/min/1.73 sqM) Est GFR (CKD-EPI)NonAf 63 (>60 ml/min/1.73 sqM) Glucose 95 (74-99) mg/dL Plasma Lactic Acid Dandre 0.7 (0.7-2.0) mmol/L Calcium 8.5 (8.4-10.2) mg/dL Total Bilirubin 0.5 (0.2-1.3) mg/dL AST 19 (14-36) U/L ALT 8 (4-34) U/L Alkaline Phosphatase 106 (38-126) U/L Total Protein 5.8 L (6.3-8.2) g/dL Albumin 3.4 L (3.5-5.0) g/dL Coronavirus (PCR) (Not Detectd) 01/26/22 Range/Units 22:39 WBC (3.8-10.6) k/uL RBC (3.80-5.40) m/uL Hgb (11.4-16.0) gm/dL Hct (34.0-46.0) % MCV (80.0-100.0) fL MCH (25.0-35.0) pg MCHC (31.0-37.0) g/dL RDW (11.5-15.5) % Plt Count (150-450) k/uL MPV Neutrophils % % Lymphocytes % % Monocytes % % Eosinophils % % Basophils % % Neutrophils # (1.3-7.7) k/uL Lymphocytes # (1.0-4.8) k/uL Monocytes # (0-1.0) k/uL Eosinophils # (0-0.7) k/uL Basophils # (0-0.2) k/uL Hypochromasia Sodium (137-145) mmol/L Potassium (3.5-5.1) mmol/L Chloride (98-107) mmol/L Carbon Dioxide (22-30) mmol/L Anion Gap mmol/L BUN (7-17) mg/dL Creatinine (0.52-1.04) mg/dL Est GFR (CKD-EPI)AfAm (>60 ml/min/1.73 sqM) Est GFR (CKD-EPI)NonAf (>60 ml/min/1.73 sqM) Glucose (74-99) mg/dL Plasma Lactic Acid Dandre (0.7-2.0) mmol/L Calcium (8.4-10.2) mg/dL Total Bilirubin (0.2-1.3) mg/dL AST (14-36) U/L ALT (4-34) U/L Alkaline Phosphatase (38-126) U/L Total Protein (6.3-8.2) g/dL Albumin (3.5-5.0) g/dL Coronavirus (PCR) Detected A (Not Detectd) Disposition Clinical Impression: COVID Disposition: ADMITTED IP TO THIS HOSP Condition: Fair Is patient prescribed a controlled substance at d/c from ED?: No
[2022-01-26 22:48] LABS: Basophils % (A) 0 %; Eosinophils # (A) 0.1 k/uL (0-0.7); Eosinophils % (A) 2 %; HCT 33.4 % (34.0-46.0); HGB 10.2 gm/dL (11.4-16.0); Hypochromasia Marked; Lymphocytes # (A) 0.6 k/uL (1.0-4.8); Lymphocytes % (A) 10 %; MCH 27.9 pg (25.0-35.0); MCHC 30.6 g/dL (31.0-37.0); Mean Platelet Volume 9.8; Monocytes # (A) 0.4 k/uL (0-1.0); Monocytes % (A) 6 %; Neutrophils # (A) 5.1 k/uL (1.3-7.7); Neutrophils % (A) 81 %; Platelet Count 145 k/uL (150-450); RBC 3.67 m/uL (3.80-5.40); RDW 15.8 % (11.5-15.5); WBC 6.3 k/uL (3.8-10.6)
[2022-01-26 23:08] LABS: Albumin 3.4 g/dL (3.5-5.0); Calcium 8.5 mg/dL (8.4-10.2); Potassium 3.6 mmol/L (3.5-5.1); Total Bilirubin 0.5 mg/dL (0.2-1.3); Total Protein 5.8 g/dL (6.3-8.2)
--- NOTE | 2022-01-26 23:14 | XR ---
EXAMINATION TYPE: XR chest 2V DATE OF EXAM: 01/26/2022 COMPARISON: 12/14/2021 HISTORY: Cough TECHNIQUE: 2 views FINDINGS: Heart is enlarged. There is some pulmonary vascular congestion. There is some mild pulmonar y interstitial edema. There is small amount of fluid in the right minor fissure. There are chest lead s. IMPRESSION: There is some pulmonary interstitial edema slightly increased compared to the old exam an d could be some congestive heart failure and interstitial pneumonia.
[2022-01-27] MEDS ORDERED: BEBTELOVIMAB (EUA) 175 MG/2 ML VIAL IV ONE (00:45)
[2022-01-27] MEDS ORDERED: NALOXONE 0.4 MG/ML 1 ML VIAL IV PRN (04:56)
[2022-01-27] MEDS ORDERED: ACETAMINOPHEN TAB 325 MG TAB PO PRN (04:56)
[2022-01-27] MEDS ORDERED: HYDROcodone/APAP 7.5-325MG 1 EACH TAB PO PRN (10:35)
[2022-01-27] MEDS: ALBUTEROL HFA INHALER INHALATION SCH ×3 (11:29→20:14)
[2022-01-27] MEDS ORDERED: FUROSEMIDE 40 MG TAB PO SCH (12:00)
--- NOTE | 2022-01-27 12:39 | HP ---
HISTORY AND PHYSICAL DATE OF SERVICE: 01/27/2022 CHIEF COMPLAINTS: Weakness and shortness of breath. HISTORY OF PRESENT ILLNESS: This 87-year-old woman with a past medical history of multiple medical problems, including COPD, CHF, being followed by Dr. Ortega in the outpatient setting, was not feeling well for the past couple of days because of shortness of breath and cough and sputum. Patient tested positive for COVID-19. In the ER patient was given antibodies. The patient's son and daughter were also tested positive. Chest x-ray showed bilateral interstitium highly suggestive of COVID pneumonia. There is no history of any fever, rigor or chills at this time. PAST MEDICAL HISTORY: Reviewed. It includes atrial fibrillation, CHF, COPD. Rest of the chart reviewed. CURRENT MEDICATIONS: Reviewed. They include Equip. Doses and the rest of the medications are also reviewed. ALLERGIES: PENICILLIN. FAMILY HISTORY: History of myocardial infarction in the family. SOCIAL HISTORY: No history of smoking. REVIEW OF SYSTEMS: Fourteen-point review of systems negative except as mentioned earlier. PHYSICAL EXAMINATION: Pulse 74, blood pressure 100/50, respiration 24. HEENT: Conjunctivae normal. NECK: No jugular venous distention. CARDIOVASCULAR: S1, S2 muffled. RESPIRATION: Breath sounds diminished at the bases. A few scattered rhonchi and crackles. ABDOMEN: Soft, obese, non-tender. LEGS: No edema. No swelling. NERVOUS SYSTEM: No focal deficit. LABS: WBC 6.3, hemoglobin 10.2. ASSESSMENT: 1. Acute COVID-19 infection and acute bilateral COVID-19 interstitial pneumonia. 2. Chronic obstructive pulmonary disease. 3. Congestive heart failure. 4. Atrial fibrillation. 5. Gastroesophageal reflux disease. 6. Hypertension. 7. Hyperlipidemia. 8. Multiple medical issues. RECOMMENDATIONS AND DISCUSSION: In this 87-year-old woman who presented with multiple complex medical issues, at this time I recommend to continue current medications, symptomatic treatment. Resume the home medication, bronchodilators. I would also recommend infectious disease evaluation and possible remdesivir. The patient has also recently received antibodies. I would also recommend pulmonary consultation. Continue to monitor also. Prognosis is guarded because of multiple complex medical conditions. Further recommendations to follow. MMODL / IJN: [id number] /
--- NOTE | 2022-01-27 14:45 | P.CNPUL ---
History of Present Illness Consult date: 01/27/22 Reason for consult: dyspnea History of present illness: 87-year-old female patient presented emergency department because of worsening shortness of breath and generalized weakness. She was evaluated at home and she tested positive for COVID 19. Noted the patient had a previous COVID 19 infection back in May 2021. She was having some increased congestion and cough and feeling hot and cold. No nausea. No vomiting. No abdominal pain. No chest pain. No altered mentation. The patient was afebrile in the emergency. Hemodynamically stable. She is currently on 4 L of O2 nasal cannula. The white cell count of 6.3 with hemoglobin 10.25. Lactic acid level is at 0.1. The rest of the electrolytes show a sodium of 138, potassium 3.6, BUN 50 with a creatinine of 0.5 and a chest x-ray showing cardiomegaly with chronic interstitial edema consistent with CHF and less likely interstitial pneumonia. Note that the patient is known to have COPD and she is on home O2. She has previous history of chlamydia infection back in May 2021. She has chronic CHF with valvular heart disease and aortic stenosis, chronic atrial fibrilla tion, previous history of CVA and obstructive sleep apnea. The patient also has previous history of ovarian cancer treated by surgery, chemoradiation therapy and she suffers from chronic pain involving the back and arthritis involving the hips and shoulders. Her most recent hospitalization was back in November 2021 for increased shortness of breath and peripheral edema consistent with CHF. She has moderate to severe aortic stenosis with moderate degree of pulmonary hypertension. Review of Systems Constitutional: Denies chills, Denies fever, generalized weakness Eyes: denies blurred vision, denies pain Ears, nose, mouth and throat: Nasal congestion, stuffiness along with some increased shortness of breath and generalized weakness Cardiovascular: Denies chest pain, Denies shortness of breath Respiratory: Reports dyspnea, Denies cough Gastrointestinal: Denies abdominal pain, Denies diarrhea, Denies nausea, Denies vomiting Genitourinary: Denies dysuria, Denies hematuria Musculoskeletal: Denies myalgias Integumentary: Denies pruritus, Denies rash Neurological: Denies numbness, Denies weakness Psychiatric: Denies anxiety, Denies depression Endocrine: Denies fatigue, Denies weight change Past Medical History Past Medical History: Atrial Fibrillation, Cancer, Heart Failure, COPD, Fibromyalgia, GERD/Reflux, Hyperlipidemia, Hypertension, Osteoarthritis (OA), Pneumonia, Respiratory Disorder, Skin Disorder, Sleep Apnea/CPAP/BIPAP Additional Past Medical History / Comment(s): Chronic hypoxic and hypercanpnic respiratory failure/obesity hypoventilation syndrome, home O2 at 4L/NC daytime and Bipap at night, past pneumonias and covid pneumonia 05/2021, pulmonary fibrosis, cardiac valve disease, ovarian cancer with surgery/chemo/radiation, benign brain tumor removed, PVCs, chronic back pain/bilateral hips and shoulders, RLS, psoriasis, sacral decub, 1998 Cdiff colitis. History of Any Multi-Drug Resistant Organisms: C-DIFF Date of last positivie culture/infection: stool MDRO Source:: 1998 Past Surgical History: Back Surgery, Heart Catheterization, Hernia Repair, Hysterectomy, Joint Replacement, Tonsillectomy Additional Past Surgical History / Comment(s): Total hysterectomy, incisional hernia with mesh which later became imfected and had exploratory laparatomy/w ound vac, back surgeries x2, EGD, colonoscopy, hemorrhoidectomy, loop recorder, brain tumor removed, bilateral total knee arthroplasties, bilateral cataract surgery. Past Anesthesia/Blood Transfusion Reactions: No Reported Reaction Past Psychological History: Depression Additional Psychological History / Comment(s): Pt resides with her spouse. She [facility] She has been having difficulty with ambulation, uses a walker. She has home oxygen and bipap. Her ronel states she uses a wheelchair van now d/t too difficult getting pt in and out of house. Smoking Status: Never smoker Past Alcohol Use History: None Reported Past Drug Use History: None Reported - Past Family History Father Family Medical History: Myocardial Infarction ([place]) Additional Family Medical History / Comment(s): Father of a [place] at the age of 56yrs. Mother Additional Family Medical History / Comment(s): parkinson's Sister(s) Family Medical History: Cancer Medications and Allergies Home Medications Medication Instructions Recorded Confirmed Type Atorvastatin [Lipitor] 40 mg PO HS@2100 08/17/17 01/27/22 History DULoxetine HCL [Cymbalta] 20 mg PO HS@2100 10/16/17 01/27/22 History Metoprolol Succinate [Toprol XL] 25 mg PO DAILY@0900 12/12/19 01/27/22 History rOPINIRole HCL [Requip] 3 mg PO BID@0900,2100 06/15/21 01/27/22 History Ascorbic Acid [Vitamin C] 500 mg PO DAILY@0900 08/21/21 01/27/22 History Budesonide-Formot 160-4.5 Mcg 2 puff INHALATION RT-BID 08/21/21 01/27/22 History [Symbicort 160-4.5 Mcg Inhaler] Cholecalciferol [Vitamin D3 (25 25 mcg PO DAILY@89908/21/21 01/27/22 History Mcg = 1000 Iu)] acetaZOLAMIDE [Diamox] 250 mg PO DAILY@0900 08/21/21 01/27/22 History Famotidine [Pepcid] 20 mg PO DAILY@59912/08/21 01/27/22 History Levothyroxine Sodium [Synthroid] 75 mcg PO DAILY@59912/08/21 01/27/22 History Melatonin 5 mg PO HS@22012/08/21 01/27/22 History Pantoprazole [Protonix] 40 mg PO DAILY@59912/08/21 01/27/22 History Potassium Chloride ER [K-Dur 20] 20 meq PO HS@209912/08/21 01/27/22 History Albuterol Nebulized [Ventolin 2.5 mg INHALATION RT-QID 01/27/22 01/27/22 History Nebulized] Apixaban [Eliquis] 2.5 mg PO BID@0900,2100 01/27/22 01/27/22 History Cyanocobalamin [Vitamin B-12] 500 mcg PO DAILY@00 01/27/22 01/27/22 History Furosemide [Lasix] 40 mg PO BID@0900,1200 01/27/22 01/27/22 History HYDROcodone/APAP 7.5-325MG [[place] 1 tab PO Q12H PRN 01/27/22 01/27/22 History 7.5-325] Lactulose [Cephulac] 20 gm PO TID@0600,1200,2100 01/27/22 01/27/22 History Pregabalin [Lyrica] 150 mg PO TID@0600,1200,2200 01/27/22 01/27/22 History Allergies Allergy/AdvReac Type Severity Reaction Status Date / Time Penicillins Allergy Swelling/it Verified 01/27/22 08:33 lolis Physical Exam Vitals: Vital Signs Temp Pulse Pulse Resp BP BP Pulse Ox 01/27/22 10:30 98.3 F 77 104/63 93 L 01/27/22 08:00 97.6 F 74 101/50 94 L 01/27/22 05:50 70 24 107/83 95 01/27/22 03:00 67 18 110/50 96 01/27/22 02:00 70 16 116/42 94 L 01/27/22 01:00 70 16 109/48 93 L 01/27/22 00:51 24 01/27/22 00:30 64 22 109/48 94 L 01/26/22 23:30 64 22 100/85 94 L 01/26/22 22:24 99 F 66 16 109/48 94 L Intake and Output 01/26/22 01/27/22 01/27/22 22:59 06:59 14:59 Other: Weight 104.326 kg 104.326 kg GENERAL EXAM: Alert, very pleasant, 86-year-old white female, sitting up in the recliner, mildly short of breath, but appears to be distress, for L of oxygen w ith pulse ox 96% comfortable in no apparent distress. HEAD: Normocephalic/atraumatic. EYES: Normal reaction of pupils, equal size. Conjunctiva pink, sclera white. NOSE: Clear with pink turbinates. THROAT: No erythema or exudates. NECK: No masses, no JVD, no thyroid enlargement, no adenopathy. CHEST: No chest wall deformity. Symmetrical expansion. LUNGS: Equal air entry with crackles CVS: Irregular rate and rhythm, normal S1 and S2, no gallops, and the patient has systolic ejection murmur grade 3/6 systolic the precordium consistent with aortic stenosis. ABDOMEN: Soft, nontender. No hepatosplenomegaly, normal bowel sounds, no guarding or rigidity. EXTREMITIES: No clubbing, 2+ lower extremity edema, no cyanosis, 2+ pulses and upper and lower extremities. MUSCULOSKELETAL: Muscle strength and tone normal. SPINE: No scoliosis or deformity SKIN: No rashes CENTRAL NERVOUS SYSTEM: Alert and oriented -3. No focal deficits, tone is normal in all 4 extremities. PSYCHIATRIC: Alert and oriented -3. Appropriate affect. Intact judgment and insight. Results - Laboratory Findings CBC and BMP: 01/26/22 22:39 01/26/22 22:39 Abnormal lab findings: Abnormal Labs 01/26/22 01/26/22 01/26/22 22:39 22:39 22:39 RBC 3.67 L Hgb 10.2 L Hct 33.4 L MCHC 30.6 L RDW 15.8 H Plt Count 145 L Lymphocytes # 0.6 L Carbon Dioxide 32 H Total Protein 5.8 L Albumin 3.4 L Coronavirus (PCR) Detected A - Diagnostic Findings Chest x-ray: image reviewed Assessment and Plan Plan: COVID 19 infection, recurrent. The patient's last infection was in May 2021 from which she recovered. Noted the patient is fully vaccinated for COVID 19x4 . For now, it's hard to this they wish between interstitial edema versus additional pneumonia related to COVID 19. I suspect her presentation is more typical for CHF and use by the viral infection. I'm going to give the patient a benefit of the doubt and treat her with a combination of diuretics and Decadron. Chronic CHF, diastolic heart failure with a heart disease moderately severe aortic stenosis and moderate pulmonary hypertension Chronic atrial fibrillation on Eliquis History of CVA/TIA Hypertension Obstructive sleep apnea On BiPAP at bedtime Chronic hypoxic respiratory failure maintained on oxygen on an outpatient basis History of ovarian cancer status post hysterectomy, and chemoradiation History of incisional hernia repair with mesh Right bundle-branch block pattern Anemia of chronic disease CAD with a 30% lesion involving the proximal LAD Plan O2 supplementation to maintain saturation above 90% Multivitamins, COVID 19 cocktail Lasix 40 mg IV every 12 hours Decadron 6 mg IV every 24 hours No need for Remdesivir The prognosis especially the patient has been infected in the past, probably immune, and her disease presentation is mild Check LDH and CRP repeat chest x-ray with next 24 hours Will follow
[2022-01-27] MEDS: dexAMETHasone 2 MG TAB PO SCH (15:27)
[2022-01-27] MEDS: LACTULOSE 20 GM/30 ML CUP PO SCH ×2 (15:27→20:06)
[2022-01-27] MEDS: PREGABALIN 50 MG CAP PO SCH ×2 (15:27→22:17)
[2022-01-27 15:46] LABS: C Reactive Protein 4.7 mg/dL (<1.0)
[2022-01-27] MEDS: APIXABAN 2.5 MG TABLET PO SCH (20:06)
[2022-01-27] MEDS: ATORVASTATIN 40 MG TAB PO SCH (20:06)
[2022-01-27] MEDS: POTASSIUM CHLORIDE ER 20 MEQ TAB.ER PO SCH (20:07)
[2022-01-27] MEDS: DULoxetine HCL 20 MG CAPSULE.DR PO SCH (20:12)
[2022-01-27] MEDS: SYMBICORT 160-4.5 MCG INHALER INHALATION SCH (20:14)
[2022-01-27] MEDS: FUROSEMIDE 10 MG/ML 4 ML VIAL IV SCH (21:07)
[2022-01-27] MEDS: MELATONIN 5 MG TABLET PO SCH (22:17)
--- NOTE | 2022-01-27 22:45 | P.CONS ---
History of Present Illness - Reason for Consult Consult date: 01/27/22 - History of Present Illness Patient is a 87-year-old female who is fully vaccinated for COVID-19 and apparently did have a COVID-19 infection in May 2021 family the patient did recount patient mention she was doing well however her son came from [place] and he was subsequently diagnosed with a covid19 patient started having symptoms about 2 days ago has been mostly fever and also increasing shortness of breath on minimal exertion even at rest patient also have a cough which is mild to moderate intensity but not bring up any sputum denies any pleuritic chest pain no nausea no vomiting no abdominal pain or any diarrhea patient on presentation to the hospital did have a low-grade fever of 99 degree for night patient was hypoxic with O2 sats of 94% she is currently on 4 L patient did have a normal white count with lymphopenia kidney function was normal liver enzymes are normal did have a positive COVID test chest x-ray some pulm interstitial edema slightly increased compared to the old exam patient has been admitted to hospital started on dexamethasone continue Eliquis infectious disease was consulted for further management, patient was started on Lasix per pulmonary concerning for respiratory failure more likely due to CHF then the covid19 Past Medical History Past Medical History: Atrial Fibrillation, Cancer, Heart Failure, COPD, Fibromyalgia, GERD/Reflux, Hyperlipidemia, Hypertension, Osteoarthritis (OA), Pneumonia, Respiratory Disorder, Skin Disorder, Sleep Apnea/CPAP/BIPAP Additional Past Medical History / Comment(s): Chronic hypoxic and hypercanpnic respiratory failure/obesity hypoventilation syndrome, home O2 at 4L/NC daytime and Bipap at night, past pneumonias and covid pneumonia 05/2021, pulmonary fibrosis, cardiac valve disease, ovarian cancer with surgery/chemo/radiation, benign brain tumor removed, PVCs, chronic back pain/bilateral hips and shoulders, RLS, psoriasis, sacral decub, 1998 Cdiff colitis. History of Any Multi-Drug Resistant Organisms: C-DIFF Year Discovered:: stool MDRO Source:: 1998 Past Surgical History: Back Surgery, Heart Catheterization, Hernia Repair, Hysterectomy, Joint Replacement, Tonsillectomy Additional Past Surgical History / Comment(s): Total hysterectomy, incisional hernia with mesh which later became imfected and had exploratory laparatomy/w ound vac, back surgeries x2, EGD, colonoscopy, hemorrhoidectomy, loop recorder, brain tumor removed, bilateral total knee arthroplasties, bilateral cataract surgery. Past Anesthesia/Blood Transfusion Reactions: No Reported Reaction Past Psychological History: Depression Additional Psychological History / Comment(s): Pt resides with her spouse. She [facility]. She has been having difficulty with ambulation, uses a walker. She has home oxygen and bipap. Her ronel states she uses a wheelchair van now d/t too difficult getting pt in and out of house. Smoking Status: Never smoker Past Alcohol Use History: None Reported Past Drug Use History: None Reported - Past Family History Father Family Medical History: Myocardial Infarction (PA) Additional Family Medical History / Comment(s): Father of a PA at the age of 56yrs. Mother Additional Family Medical History / Comment(s): parkinson's Sister(s) Family Medical History: Cancer Medications and Allergies Home Medications Medication Instructions Recorded Confirmed Type Atorvastatin [Lipitor] 40 mg PO HS@209908/17/17 01/27/22 History DULoxetine HCL [Cymbalta] 20 mg PO HS@209910/16/17 01/27/22 History Metoprolol Succinate [Toprol XL] 25 mg PO DAILY@89912/12/19 01/27/22 History rOPINIRole HCL [Requip] 3 mg PO BID@06/15/21 01/27/22 History Ascorbic Acid [Vitamin C] 500 mg PO DAILY@89908/21/21 01/27/22 History Budesonide-Formot 160-4.5 Mcg 2 puff INHALATION RT-BID 08/21/21 01/27/22 History [Symbicort 160-4.5 Mcg Inhaler] Cholecalciferol [Vitamin D3 (25 25 mcg PO DAILY@89908/21/21 01/27/22 History Mcg = 1000 Iu)] acetaZOLAMIDE [Diamox] 250 mg PO DAILY@89908/21/21 01/27/22 History Famotidine [Pepcid] 20 mg PO DAILY@59912/08/21 01/27/22 History Levothyroxine Sodium [Synthroid] 75 mcg PO DAILY@59912/08/21 01/27/22 History Melatonin 5 mg PO HS@219912/08/21 01/27/22 History Pantoprazole [Protonix] 40 mg PO DAILY@00 12/08/21 01/27/22 History Potassium Chloride ER [K-Dur 20] 20 meq PO HS@2100 12/08/21 01/27/22 History Albuterol Nebulized [Ventolin 2.5 mg INHALATION RT-QID 01/27/22 01/27/22 History Nebulized] Apixaban [Eliquis] 2.5 mg PO BID@0900,2100 01/27/22 01/27/22 History Cyanocobalamin [Vitamin B-12] 500 mcg PO DAILY@0900 01/27/22 01/27/22 History Furosemide [Lasix] 40 mg PO BID@0900,1200 01/27/22 01/27/22 History HYDROcodone/APAP 7.5-325MG [[place] 1 tab PO Q12H PRN 01/27/22 01/27/22 History 7.5-325] Lactulose [Cephulac] 20 gm PO TID@0600,1200,2100 01/27/22 01/27/22 History Pregabalin [Lyrica] 150 mg PO TID@0600,1200,2200 01/27/22 01/27/22 History Allergies Allergy/AdvReac Type Severity Reaction Status Date / Time Penicillins Allergy Swelling/it Verified 01/27/22 08:33 lolis Physical Exam Vitals: Vital Signs Temp Pulse Pulse Resp BP BP Pulse Ox 01/27/22 10:30 98.3 F 77 104/63 93 L 01/27/22 08:00 97.6 F 74 101/50 94 L 01/27/22 05:50 70 24 107/83 95 01/27/22 03:00 67 18 110/50 96 01/27/22 02:00 70 16 116/42 94 L 01/27/22 01:00 70 16 109/48 93 L 01/27/22 00:51 24 01/27/22 00:30 64 22 109/48 94 L 01/26/22 23:30 64 22 100/85 94 L 01/26/22 22:24 99 F 66 16 109/48 94 L Intake and Output 01/27/22 01/27/22 01/27/22 06:59 14:59 22:59 Other: Weight 104.326 kg Results CBC & Chem 7: 01/26/22 22:39 01/26/22 22:39 Labs: Abnormal Lab Results - Last 24 Hours (Table) 01/26/22 01/26/22 01/26/22 Range/Units 22:39 22:39 22:39 RBC 3.67 L (3.80-5.40) m/uL Hgb 10.2 L (11.4-16.0) gm/dL Hct 33.4 L (34.0-46.0) % MCHC 30.6 L (31.0-37.0) g/dL RDW 15.8 H (11.5-15.5) % Plt Count 145 L (150-450) k/uL Lymphocytes # 0.6 L (1.0-4.8) k/uL Carbon Dioxide 32 H (22-30) mmol/L C-Reactive Protein (<1.0) mg/dL Total Protein 5.8 L (6.3-8.2) g/dL Albumin 3.4 L (3.5-5.0) g/dL Coronavirus (PCR) Detected A (Not Detectd) 01/27/22 Range/Units 15:04 RBC (3.80-5.40) m/uL Hgb (11.4-16.0) gm/dL Hct (34.0-46.0) % MCHC (31.0-37.0) g/dL RDW (11.5-15.5) % Plt Count (150-450) k/uL Lymphocytes # (1.0-4.8) k/uL Carbon Dioxide (22-30) mmol/L C-Reactive Protein 4.7 H (<1.0) mg/dL Total Protein (6.3-8.2) g/dL Albumin (3.5-5.0) g/dL Coronavirus (PCR) (Not Detectd) Assessment and Plan Plan: 1patient presented to hospital with increasing shortness of breath she also have a cough with interstitial infiltrate on the chest x-ray even though patient is vaccinated for COVID-19 however has exposure to the son who was diagnosed with COVID-19 and apparently not vaccinated clinical findings are most suggestive covid19 rather than CHF. 2we will wait for the inflammatory markers and also check a pro BNP. 3repeat a chest x-ray tomorrow after the patient is diuresed some 4continue with the dexamethasone Eliquis and ascorbic acid if persistent hypoxemia or any worsening may be candidate for remdesivir. 5droplet isolation and respiratory support. We will follow on clinical condition and cultures to further adjust medication if needed Thank you for this consultation will follow this patient along with you Time with Patient: Greater than 30
[2022-01-28] MEDS: PANTOPRAZOLE 40 MG TABLET PO SCH (05:28)
[2022-01-28] MEDS: FAMOTIDINE 20 MG TAB PO SCH (05:28)
[2022-01-28] MEDS: PREGABALIN 50 MG CAP PO SCH ×3 (05:28→21:28)
[2022-01-28] MEDS: LACTULOSE 20 GM/30 ML CUP PO SCH ×3 (05:28→21:28)
[2022-01-28] MEDS: LEVOTHYROXINE 75 MCG TAB PO SCH (05:28)
--- NOTE | 2022-01-28 08:18 | XR ---
EXAMINATION TYPE: XR chest 1V portable DATE OF EXAM: 01/28/2022 COMPARISON: Chest x-ray 01/26/2022 HISTORY: Pneumonia TECHNIQUE: Single frontal view of the chest is obtained. FINDINGS: Patchy subsegmental atelectatic changes or scarring and possible associated airspace disea se noted similar to prior exam. Patient is rotated. No evident pneumothorax or pleural effusion. Righ t hemidiaphragm is elevated. There are leads present overlying the thoracic spine midportion. Cardiac mediastinal silhouette is stable, heart is enlarged. IMPRESSION: Cardiomegaly, correlate for pneumonia, atelectasis
[2022-01-28] MEDS: ALBUTEROL HFA INHALER INHALATION SCH ×4 (09:06→19:44)
[2022-01-28] MEDS: SYMBICORT 160-4.5 MCG INHALER INHALATION SCH ×2 (09:06→19:44)
[2022-01-28] MEDS: METOPROLOL SUCCINATE (ER) 25 MG TAB.ER.24H PO SCH (09:25)
[2022-01-28] MEDS: acetaZOLAMIDE 250 MG TAB PO SCH (09:25)
[2022-01-28] MEDS: ASCORBIC ACID 500 MG TAB PO SCH (09:25)
[2022-01-28] MEDS: APIXABAN 2.5 MG TABLET PO SCH ×2 (09:25→21:28)
[2022-01-28] MEDS: CHOLECALCIFEROL 25 MCG (1000 IU) TABLET PO SCH (09:25)
[2022-01-28] MEDS: FUROSEMIDE 10 MG/ML 4 ML VIAL IV SCH ×2 (09:25→21:28)
[2022-01-28] MEDS: dexAMETHasone 2 MG TAB PO SCH (09:25)
[2022-01-28] MEDS: CYANOCOBALAMIN 500 MCG TAB PO SCH (09:25)
[2022-01-28 09:30] LABS: Basophils # (A) 0.01 X 10*3/uL (0.00-0.10); Basophils % (A) 0.2 %; Eosinophils # (A) 0 X 10*3/uL (0.04-0.35); Eosinophils % (A) 0 %; HCT 36.2 % (37.2-46.3); HGB 10.2 g/dL (12.0-15.0); Immature Grans, Automated 0.4 %; Lymphocytes # (A) 0.45 X 10*3/uL (0.90-5.00); Lymphocytes % (A) 8.9 %; MCH 25.6 pg (27.0-32.0); MCHC 28.2 g/dL (32.0-37.0); Mean Platelet Volume 12.4 fL (9.5-12.2); Monocytes # (A) 0.12 X 10*3/uL (0.20-1.00); Monocytes % (A) 2.4 %; NRBC Per 100 WBC 0 /100 WBCS (0.0-0.0); Neutrophils # (A) 4.46 X 10*3/uL (1.80-7.70); Neutrophils % (A) 88.1 %; Platelet Count 171 X 10*3/uL (140-440); RBC 3.98 X 10*6/uL (4.10-5.20); RDW 15.8 % (11.5-14.5); WBC 5.06 X 10*3/uL (4.50-10.00)
[2022-01-28 09:40] LABS: African American GFR (CKD) 95.7 (60.0-200.0); Anion Gap 7.4 mmol/L (10.00-18.00); Blood Urea Nitrogen 12.6 mg/dL (9.0-27.0); C Reactive Protein 5.3 mg/dL (0.00-0.80); Calcium 9.3 mg/dL (8.7-10.3); Carbon Dioxide 32.6 mmol/L (20.0-27.5); Non-African American GFR(CKD) 82.5 (60.0-200.0); Potassium 3.7 mmol/L (3.5-5.5)
--- NOTE | 2022-01-28 13:54 | P.PN ---
Subjective Progress Note Date: 01/28/22 Principal diagnosis: COVID-19 infection 87-year-old female patient presented emergency department because of worsening shortness of breath and generalized weakness. She was evaluated at home and she tested positive for COVID 19. Noted the patient had a previous COVID 19 infec tion back in May 2021. She was having some increased congestion and cough and feeling hot and cold. No nausea. No vomiting. No abdominal pain. No chest pain. No altered mentation. The patient was afebrile in the emergency. Hemodynamically stable. She is currently on 4 L of O2 nasal cannula. The white cell count of 6.3 with hemoglobin 10.25. Lactic acid level is at 0.1. The rest of the electrolytes show a sodium of 138, potassium 3.6, BUN 50 with a creatinine of 0.5 and a chest x-ray showing cardiomegaly with chronic interstitial edema consistent with CHF and less likely interstitial pneumonia. Note that the patient is known to have COPD and she is on home O2. She has previous history of chlamydia infection back in May 2021. She has chronic CHF with valvular heart disease and aortic stenosis, chronic atrial fibrillation, previous history of CVA and obstructive sleep apnea. The patient also has previous history of ovarian cancer treated by surgery, chemoradiation therapy and she suffers from chronic pain involving the back and arthritis involving the hips and shoulders. Her most recent hospitalization was back in November 2021 for increased shortness of breath and peripheral edema consistent with CHF. She has moderate to severe aortic stenosis with moderate degree of pulmonary hypertension. On 01/28/2022 patient seen in follow-up on medical surgical floor. She is awake and alert, in no acute distress, breathing comfortably, she is on 4 L of oxygen satting 97%. Patient has been diagnosed with COVID-19 infection, her chest x- ray findings showed pulmonary interstitial edema, proBNP was elevated, and pro- calcitonin level was low suggesting possibility of acute exacerbation of CHF with previous documented diastolic dysfunction. LDH was within normal limits on admission at 357, and is improved on today's labs and is down to 161, CRP was 4.7 and is up to 5.3, proBNP was 2940. Patient is status post Bebtelovimab On 01/27/2022, she remains on Decadron 6 mg daily, Diamox, and IV Lasix at 40 mg every 12 hours. Objective - Vital Signs Vital signs: Vital Signs Temp 98.1 F 01/28/22 05:48 Pulse 71 01/28/22 07:55 Resp 16 01/28/22 07:55 BP 126/60 01/28/22 05:48 Pulse Ox 97 01/28/22 05:48 FiO2 Intake & Output 01/27/22 01/28/22 01/28/22 18:59 06:59 18:59 Other: Voiding Method Bedside Commode Bedside Commode # Voids 2 2 2 - Exam GENERAL EXAM: Alert, very pleasant, 87-year-old white female, on 4 L oxygen pulse ox of 97% comfortable in no apparent distress. HEAD: Normocephalic/atraumatic. EYES: Normal reaction of pupils, equal size. Conjunctiva pink, sclera white. NOSE: Clear with pink turbinates. THROAT: No erythema or exudates. NECK: No masses, no JVD, no thyroid enlargement, no adenopathy. CHEST: No chest wall deformity. Symmetrical expansion. LUNGS: Equal air entry with basilar crackles CVS: Regular rate and rhythm, normal S1 and S2, no gallops, no murmurs, no rubs ABDOMEN: Soft, nontender. No hepatosplenomegaly, normal bowel sounds, no guarding or rigidity. EXTREMITIES: No clubbing, no edema, no cyanosis, 2+ pulses and upper and lower extremities. MUSCULOSKELETAL: Muscle strength and tone normal. SPINE: No scoliosis or deformity SKIN: No rashes CENTRAL NERVOUS SYSTEM: Alert and oriented -3. No focal deficits, tone is normal in all 4 extremities. PSYCHIATRIC: Alert and oriented -3. Appropriate affect. Intact judgment and insight. - Labs CBC & Chem 7: 01/28/22 04:37 01/28/22 04:37 Labs: Abnormal Lab Results - Last 24 Hours (Table) 01/27/22 01/28/22 01/28/22 Range/Units 15:04 04:37 04:37 RBC 3.98 L (4.10-5.20) X 10*6/uL Hgb 10.2 L (12.0-15.0) g/dL Hct 36.2 L (37.2-46.3) % MCH 25.6 L (27.0-32.0) pg MCHC 28.2 L (32.0-37.0) g/dL RDW 15.8 H (11.5-14.5) % MPV 12.4 H (9.5-12.2) fL Lymphocytes # 0.45 L (0.90-5.00) X 10*3/uL Monocytes # 0.12 L (0.20-1.00) X 10*3/uL Eosinophils # 0 L (0.04-0.35) X 10*3/uL Sodium (135-145) mmol/L Carbon Dioxide (20.0-27.5) mmol/L Anion Gap (10.00-18.00) mmol/L BUN/Creatinine Ratio (12.00-20.00) Ratio Glucose (70-110) mg/dL C-Reactive Protein 4.7 H (<1.0) mg/dL SARS-CoV-2 Ab,Total Positive A (Negative) 01/28/22 Range/Units 04:37 RBC (4.10-5.20) X 10*6/uL Hgb (12.0-15.0) g/dL Hct (37.2-46.3) % MCH (27.0-32.0) pg MCHC (32.0-37.0) g/dL RDW (11.5-14.5) % MPV (9.5-12.2) fL Lymphocytes # (0.90-5.00) X 10*3/uL Monocytes # (0.20-1.00) X 10*3/uL Eosinophils # (0.04-0.35) X 10*3/uL Sodium 146 H (135-145) mmol/L Carbon Dioxide 32.6 H (20.0-27.5) mmol/L Anion Gap 7.40 L (10.00-18.00) mmol/L BUN/Creatinine Ratio 21.00 H (12.00-20.00) Ratio Glucose 134 H (70-110) mg/dL C-Reactive Protein 5.30 H (<1.0) mg/dL SARS-CoV-2 Ab,Total (Negative) Assessment and Plan Plan: COVID 19 infection, recurrent. The patient's last infection was in May 2021 from which she recovered. Noted the patient is fully vaccinated for COVID 19x4 . For now, it's hard to this they wish between interstitial edema versus additional pneumonia related to COVID 19. I suspect her presentation is more typical for CHF and use by the viral infection. I'm going to give the patient a benefit of the doubt and treat her with a combination of diuretics and Decadron. Chronic CHF, diastolic heart failure with a heart disease moderately severe aortic stenosis and moderate pulmonary hypertension Chronic atrial fibrillation on Eliquis History of CVA/TIA Hypertension Obstructive sleep apnea On BiPAP at bedtime Chronic hypoxic respiratory failure maintained on oxygen on an outpatient basis History of ovarian cancer status post hysterectomy, and chemoradiation History of incisional hernia repair with mesh Right bundle-branch block pattern Anemia of chronic disease CAD with a 30% lesion involving the proximal LAD Plan: Continue current medical treatment Continue diuretics, they could be switched to oral Continue Decadron 6 mg for a total of 10 days No need for Remdesivir LDH and CRP and d-dimer have been noted Patient presentation is more consistent with acute exacerbation of CHF with diastolic dysfunction From pulmonary perspective she could be considered for discharge home on home oxygen to complete a total of 10 day course of Decadron, on oral diuretics and she is already on oral anticoagulation for history of atrial fibrillation I have personally seen and examined the patient, performed the documentation and the assessment and plan as written. Number of minutes spent on the visit: [10] Time with Patient: Less than 30
--- NOTE | 2022-01-28 15:12 | P.PN ---
Subjective Progress Note Date: 01/28/22 This is an 87-year-old female who was recently admitted with increasing shortness of breath and cough with sputum and was found to be COVID-19 positive. Patient was given monoclonal antibodies in the ER and apparently son and daughter also tested positive. Pulmonary following and patient is maintained on IV dexamethasone and continued breathing inhalational treatments. Chest x-ray ordered for today. Patient also possible component of CHF exacerbation. Patient is currently maintained on 4 L which is chronic and uses this in the outpatient setting and denies any worsening shortness of breath. Patient is currently continued on IV Lasix twice a day and will follow-up on a.m. labs and possibly transition to oral. Patient is currently afebrile and denies any worsening shortness of breath. Patient denies chest pain or palpitations. Patient is tolerating diet with no reports of nausea or vomiting or abdominal pain noted. Patient does report to being vaccinated including boosters. Review of systems: Constitutional: No reports of fatigue, fever, or chills Cardiovascular: No reports of chest pain or palpitations Respiratory: No reports of shortness of breath or cough GI: reports of nausea, no reports of of vomiting, patient is passing gas : No reports of dysuria or retention Neurovascular: reports of generalized weakness, reports right hip pain All medications have been reviewed Active Medications Acetaminophen (Acetaminophen Tab 325 Mg Tab) 650 mg PO Q6HR PRN PRN Reason: Mild Pain or Fever > 100.5 Last Admin: 01/28/22 05:27 Dose: 650 mg Hydrocodone Bitart/Acetaminophen (Hydrocodone/Apap 7.5-325mg 1 Each Tab) 1 each PO Q12H PRN PRN Reason: Pain Acetazolamide (Acetazolamide 250 Mg Tab) 250 mg PO DAILY@0900 [facility] Last Admin: 01/28/22 09:25 Dose: 250 mg Albuterol Sulfate (Albuterol Hfa Inhaler) 2 puff INHALATION RT-QID [facility] Last Admin: 01/28/22 12:32 Dose: 2 puff Apixaban (Apixaban 2.5 Mg Tablet) 2.5 mg PO BID@0900,2100 [facility]; Protocol Last Admin: 01/28/22 09:25 Dose: 2.5 mg Ascorbic Acid (Ascorbic Acid 500 Mg Tab) 500 mg PO DAILY@0900 [facility] Last Admin: 01/28/22 09:25 Dose: 500 mg Atorvastatin Calcium (Atorvastatin 40 Mg Tab) 40 mg PO HS@2100 [facility] Last Admin: 01/27/22 20:06 Dose: 40 mg Budesonide/Formoterol Fumarate (Symbicort 160-4.5 Mcg Inhaler) 2 puff INHALATION RT-BID [facility] Last Admin: 01/28/22 09:06 Dose: 2 puff Cholecalciferol (Cholecalciferol 25 Mcg (1000 Iu) Tablet) 25 mcg PO DAILY@0900 [facility] Last Admin: 01/28/22 09:25 Dose: 25 mcg Cyanocobalamin (Cyanocobalamin 500 Mcg Tab) 500 mcg PO DAILY@0900 [facility] Last Admin: 01/28/22 09:25 Dose: 500 mcg Dexamethasone (Dexamethasone 2 Mg Tab) 6 mg PO DAILY [facility] Last Admin: 01/28/22 09:25 Dose: 6 mg Duloxetine HCl (Duloxetine Hcl 20 Mg Capsule.Dr) 20 mg PO HS@2100 [facility] Last Admin: 01/27/22 20:12 Dose: 20 mg Famotidine (Famotidine 20 Mg Tab) 20 mg PO DAILY@06 [facility] Last Admin: 01/28/22 05:28 Dose: 20 mg Furosemide (Furosemide 10 Mg/Ml 4 Ml Vial) 40 mg IV Q12HR [facility] Last Admin: 01/28/22 09:25 Dose: 40 mg Lactulose (Lactulose 20 Gm/30 Ml Cup) 20 gm PO TID@0600,1200,2100 [facility] Last Admin: 01/28/22 12:17 Dose: 20 gm Levothyroxine Sodium (Levothyroxine 75 Mcg Tab) 75 mcg PO DAILY@0600 [facility] Last Admin: 01/28/22 05:28 Dose: 75 mcg Melatonin (Melatonin 5 Mg Tablet) 5 mg PO HS@2200 [facility] Last Admin: 01/27/22 22:17 Dose: 5 mg Metoprolol Succinate (Metoprolol Succinate (Er) 25 Mg Tab.Er.24h) 25 mg PO DAILY@0900 [facility] Last Admin: 01/28/22 09:25 Dose: 25 mg Naloxone HCl (Naloxone 0.4 Mg/Ml 1 Ml Vial) 0.2 mg IV Q2M PRN PRN Reason: Opioid Reversal Pantoprazole Sodium (Pantoprazole 40 Mg Tablet) 40 mg PO DAILY@0600 [facility] Last Admin: 01/28/22 05:28 Dose: 40 mg Potassium Chloride (Potassium Chloride Er 20 Meq Tab.Er) 20 meq PO HS@2100 [facility] Last Admin: 01/27/22 20:07 Dose: 20 meq Pregabalin (Pregabalin 50 Mg Cap) 150 mg PO TID@0600,1200,2200 [facility] Last Admin: 01/28/22 12:17 Dose: 150 mg Ropinirole HCl (Ropinirole Hcl 1 Mg Tab) 3 mg PO BID@0900,2100 [facility] Last Admin: 01/28/22 09:25 Dose: 3 mg PHYSICAL EXAMINATION: GENERAL: The patient is alert and oriented x2-3, Well developed, well nourishe d. Heart of hearing. Obese HEENT: Pupils are round and equally reacting to light. EOMI. no scleral icterus. No conjunctival pallor. Normocephalic, atraumatic. No pharyngeal erythema. No thyromegaly. CARDIOVASCULAR: S1 and S2 muffled PULMONARY: diminished breath sounds bilaterally with some scattered rhonchi and crackles noted. ABDOMEN: soft. Nontender on exam. obese. non-distended, normoactive bowel sounds. No palpable organomegaly. MUSCULOSKELETAL: No joint swelling or deformity. EXTREMITIES: No cyanosis, clubbing, or pedal edema. NEUROLOGICAL: Gross neurological examination did not reveal any focal deficits. Diffuse weakness SKIN: No rashes. Assessment: Acute COVID-19 infection and acute bilateral COVID-19 interstitial pneumonia Chronic obstructive pulmonary disease Acute on chronic diastolic Congestive heart failure, acute exacerbation Hypertension Hyperlipidemia Multiple medical issues GI prophylaxis DVT prophylaxis Full code Plan: Recommend to continue with current medications and management with pulmonary following. Patient is currently maintained on IV dexamethasone along with inhalers and home medications. Patient also continues on IV Lasix twice a day a nd will continue for now and follow-up with repeat labs. Patient did receive antibodies in the ER and per pulmonary will not require Remdesivir. Patient's BNP was elevated at 2940 suggestive of CHF acute exacerbation. No calcitonin is negative and CRP is mildly elevated at 5.3. Chest x-ray today shows cardiomegaly and correlate for pneumonia/atelectasis with no evident pneumothorax or pleural effusions noted. Patient is a anticoagulated with Eliquis. Infectious disease is also following. Due to multiple complex medical issues, prognosis is guarded. The impression and plan of care has been dictated by Lorna Garg, nurse practitioner as directed. MD Mannie I have performed a history and examination and MDM of this patient, discussed the same with the dictator, and agree with the dictator's assessment and plan as written ,documented as a scribe. Based on total visit time, I have performed more than 50% of the visit. Any additional findings or plans will be noted. Objective - Vital Signs Vital signs: Vital Signs Temp 98.2 F 01/28/22 14:37 Pulse 70 01/28/22 14:37 Resp 18 01/28/22 14:37 BP 147/78 01/28/22 14:37 Pulse Ox 94 L 01/28/22 14:37 FiO2 Intake & Output 01/27/22 01/28/22 01/28/22 18:59 06:59 18:59 Other: Voiding Method Bedside Commode Bedside Commode # Voids 2 2 2 - Labs CBC & Chem 7: 01/28/22 04:37 01/28/22 04:37 Labs: Abnormal Lab Results - Last 24 Hours (Table) 01/27/22 01/28/22 01/28/22 Range/Units 15:04 04:37 04:37 RBC 3.98 L (4.10-5.20) X 10*6/uL Hgb 10.2 L (12.0-15.0) g/dL Hct 36.2 L (37.2-46.3) % MCH 25.6 L (27.0-32.0) pg MCHC 28.2 L (32.0-37.0) g/dL RDW 15.8 H (11.5-14.5) % MPV 12.4 H (9.5-12.2) fL Lymphocytes # 0.45 L (0.90-5.00) X 10*3/uL Monocytes # 0.12 L (0.20-1.00) X 10*3/uL Eosinophils # 0 L (0.04-0.35) X 10*3/uL Sodium (135-145) mmol/L Carbon Dioxide (20.0-27.5) mmol/L Anion Gap (10.00-18.00) mmol/L BUN/Creatinine Ratio (12.00-20.00) Ratio Glucose (70-110) mg/dL C-Reactive Protein 4.7 H (<1.0) mg/dL SARS-CoV-2 Ab,Total Positive A (Negative) 01/28/22 Range/Units 04:37 RBC (4.10-5.20) X 10*6/uL Hgb (12.0-15.0) g/dL Hct (37.2-46.3) % MCH (27.0-32.0) pg MCHC (32.0-37.0) g/dL RDW (11.5-14.5) % MPV (9.5-12.2) fL Lymphocytes # (0.90-5.00) X 10*3/uL Monocytes # (0.20-1.00) X 10*3/uL Eosinophils # (0.04-0.35) X 10*3/uL Sodium 146 H (135-145) mmol/L Carbon Dioxide 32.6 H (20.0-27.5) mmol/L Anion Gap 7.40 L (10.00-18.00) mmol/L BUN/Creatinine Ratio 21.00 H (12.00-20.00) Ratio Glucose 134 H (70-110) mg/dL C-Reactive Protein 5.30 H (<1.0) mg/dL SARS-CoV-2 Ab,Total (Negative)
[2022-01-28] MEDS: ATORVASTATIN 40 MG TAB PO SCH (21:28)
[2022-01-28] MEDS: POTASSIUM CHLORIDE ER 20 MEQ TAB.ER PO SCH (21:28)
[2022-01-28] MEDS: DULoxetine HCL 20 MG CAPSULE.DR PO SCH (21:28)
[2022-01-28] MEDS: MELATONIN 5 MG TABLET PO SCH (21:28)
[2022-01-29] MEDS: PANTOPRAZOLE 40 MG TABLET PO SCH (05:32)
[2022-01-29] MEDS: LACTULOSE 20 GM/30 ML CUP PO SCH ×2 (05:32→14:17)
[2022-01-29] MEDS: PREGABALIN 50 MG CAP PO SCH ×2 (05:32→14:17)
[2022-01-29] MEDS: FAMOTIDINE 20 MG TAB PO SCH (05:32)
[2022-01-29] MEDS: LEVOTHYROXINE 75 MCG TAB PO SCH (05:32)
[2022-01-29 07:06] LABS: African American GFR (CKD) 87 (>60 ml/min/1.73 sqM); Anion Gap 8 mmol/L; Blood Urea Nitrogen 20 mg/dL (7-17); Carbon Dioxide 31 mmol/L (22-30); Chloride 104 mmol/L (98-107); Glucose 97 mg/dL (74-99); Non-African American GFR(CKD) 75 (>60 ml/min/1.73 sqM); Potassium 3.8 mmol/L (3.5-5.1); Sodium 143 mmol/L (137-145)
[2022-01-29] MEDS: ALBUTEROL HFA INHALER INHALATION SCH ×3 (08:30→15:15)
[2022-01-29] MEDS: SYMBICORT 160-4.5 MCG INHALER INHALATION SCH (08:30)
[2022-01-29] MEDS: CHOLECALCIFEROL 25 MCG (1000 IU) TABLET PO SCH (08:56)
[2022-01-29] MEDS: FUROSEMIDE 10 MG/ML 4 ML VIAL IV SCH (08:56)
[2022-01-29] MEDS: dexAMETHasone 2 MG TAB PO SCH (08:57)
[2022-01-29] MEDS: METOPROLOL SUCCINATE (ER) 25 MG TAB.ER.24H PO SCH (08:57)
[2022-01-29] MEDS: ASCORBIC ACID 500 MG TAB PO SCH (08:57)
[2022-01-29] MEDS: CYANOCOBALAMIN 500 MCG TAB PO SCH (08:57)
[2022-01-29] MEDS: APIXABAN 2.5 MG TABLET PO SCH (08:57)
[2022-01-29] MEDS: acetaZOLAMIDE 250 MG TAB PO SCH (08:57)
[2022-01-29 10:29] VITALS: RESP 18
--- NOTE | 2022-01-29 12:34 | P.PN ---
Subjective Progress Note Date: 01/29/22 Principal diagnosis: COVID-19 infection 87-year-old female patient presented emergency department because of worsening shortness of breath and generalized weakness. She was evaluated at home and she tested positive for COVID 19. Noted the patient had a previous COVID 19 infec tion back in May 2021. She was having some increased congestion and cough and feeling hot and cold. No nausea. No vomiting. No abdominal pain. No chest pain. No altered mentation. The patient was afebrile in the emergency. Hemodynamically stable. She is currently on 4 L of O2 nasal cannula. The white cell count of 6.3 with hemoglobin 10.25. Lactic acid level is at 0.1. The rest of the electrolytes show a sodium of 138, potassium 3.6, BUN 50 with a creatinine of 0.5 and a chest x-ray showing cardiomegaly with chronic interstitial edema consistent with CHF and less likely interstitial pneumonia. Note that the patient is known to have COPD and she is on home O2. She has previous history of chlamydia infection back in May 2021. She has chronic CHF with valvular heart disease and aortic stenosis, chronic atrial fibrillation, previous history of CVA and obstructive sleep apnea. The patient also has previous history of ovarian cancer treated by surgery, chemoradiation therapy and she suffers from chronic pain involving the back and arthritis involving the hips and shoulders. Her most recent hospitalization was back in November 2021 for increased shortness of breath and peripheral edema consistent with CHF. She has moderate to severe aortic stenosis with moderate degree of pulmonary hypertension. On 01/28/2022 patient seen in follow-up on medical surgical floor. She is awake and alert, in no acute distress, breathing comfortably, she is on 4 L of oxygen satting 97%. Patient has been diagnosed with COVID-19 infection, her chest x- ray findings showed pulmonary interstitial edema, proBNP was elevated, and pro- calcitonin level was low suggesting possibility of acute exacerbation of CHF with previous documented diastolic dysfunction. LDH was within normal limits on admission at 357, and is improved on today's labs and is down to 161, CRP was 4.7 and is up to 5.3, proBNP was 2940. Patient is status post Bebtelovimab On 01/27/2022, she remains on Decadron 6 mg daily, Diamox, and IV Lasix at 40 mg every 12 hours. On 01/29/2022 patient seen in follow-up on medical surgical floor. She is resting comfortably in bed, on 4 L of oxygen her pulse ox is 94%. Afebrile, hemodynamically she is stable, respirations are nonlabored, occasional cough, no chest pain. She remains on IV Lasix at 40 mg every 12 hours, accurate intake and output is not available, she remains on Eliquis 2-1/2 mg twice daily, remains on Lasix, Diamox, and Decadron 6 mg daily. Today's labs have been reviewed, sodium is 143, potassium 3.8, BUN is 20, creatinine 0.73. Pro-calci tonin level Was Negative at 0.03. Last chest x-ray from 01/28/2022 showed cardiomegaly, and patchy subsegmental atelectasis Objective - Vital Signs Vital signs: Vital Signs Temp 97.6 F 01/29/22 10:28 Pulse 67 01/29/22 10:28 Resp 18 01/29/22 10:28 BP 107/62 01/29/22 10:28 Pulse Ox 95 01/29/22 10:28 FiO2 Intake & Output 01/28/22 01/29/22 01/29/22 18:59 06:59 18:59 Intake Total 296 296 Balance 296 296 Intake: Oral 296 296 Other: Voiding Method Bedside Commode Bedside Commode Bedside Commode # Voids 2 2 - Exam GENERAL EXAM: Alert, very pleasant, 87-year-old white female, on 4 L oxygen pulse ox of 95% comfortable in no apparent distress. HEAD: Normocephalic/atraumatic. EYES: Normal reaction of pupils, equal size. Conjunctiva pink, sclera white. NOSE: Clear with pink turbinates. THROAT: No erythema or exudates. NECK: No masses, no JVD, no thyroid enlargement, no adenopathy. CHEST: No chest wall deformity. Symmetrical expansion. LUNGS: Equal air entry with basilar crackles CVS: Regular rate and rhythm, normal S1 and S2, no gallops, no murmurs, no rubs ABDOMEN: Soft, nontender. No hepatosplenomegaly, normal bowel sounds, no guarding or rigidity. EXTREMITIES: No clubbing, no edema, no cyanosis, 2+ pulses and upper and lower extremities. MUSCULOSKELETAL: Muscle strength and tone normal. SPINE: No scoliosis or deformity SKIN: No rashes CENTRAL NERVOUS SYSTEM: Alert and oriented -3. No focal deficits, tone is normal in all 4 extremities. PSYCHIATRIC: Alert and oriented -3. Appropriate affect. Intact judgment and insight. - Labs CBC & Chem 7: 01/28/22 04:37 01/29/22 06:21 Labs: Abnormal Lab Results - Last 24 Hours (Table) 01/29/22 Range/Units 06:21 Carbon Dioxide 31 H (22-30) mmol/L BUN 20 H (7-17) mg/dL Assessment and Plan Plan: #1. COVID 19 infection, recurrent. The patient's last infection was in May 2021 from which she recovered. Noted the patient is fully vaccinated for COVID 19x4 . For now, it's hard to this they wish between interstitial edema versus additional pneumonia related to COVID 19. I suspect her presentation is more typical for CHF and use by the viral infection. I'm going to give the patient a benefit of the doubt and treat her with a combination of diuretics and Decadron. #2. Chronic CHF, diastolic heart failure with a heart disease #3. moderately severe aortic stenosis and moderate pulmonary hypertension #4. Chronic atrial fibrillation on Eliquis #5. History of CVA/TIA #6. Hypertension #7. Obstructive sleep apnea On BiPAP at bedtime #8. Chronic hypoxic respiratory failure maintained on oxygen on an outpatient ba sis #9. History of ovarian cancer status post hysterectomy, and chemoradiation #10. History of incisional hernia repair with mesh #11. Right bundle-branch block pattern #12. Anemia of chronic disease #13. CAD with a 30% lesion involving the proximal LAD Plan: We will switch the IV Lasix to oral Continue Decadron 6 monitor him daily for a total of 10 days Continue weaning FiO2 Increase activity as tolerated Stable for discharge from pulmonary perspective on home oxygen to complete a total of 10 day course of Decadron, oral Lasix, and she can continue on maintenance dose of Eliquis I have personally seen and examined the patient, performed the documentation and the assessment and plan as written. Number of minutes spent on the visit: [10] Time with Patient: Less than 30
[2022-01-29 13:44] VITALS: BP 110/62; PULSE 68; TEMP 98
[2022-01-29] MEDS ORDERED: FUROSEMIDE 40 MG TAB PO SCH (16:00)
--- NOTE | 2022-01-30 09:40 | P.DS ---
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 Patient will follow-up with Dr. Ortega in the outpatient setting upon discharge. Patient is to also follow up with pulmonary and cardiology as scheduled. Patient to continue with 7 days remaining of dexamethasone to complete the course. Total time taken is greater than 35 m inutes. Hospital course This is an 87-year-old female who was recently admitted with increasing shortness of breath with sputum production and found to have COVID-19 positive. Patient did receive antibodies in the ER and was maintained on 4 L which is chronic for her. Pulmonary following the patient was maintained on IV dexamethasone and transitioned oral and will continue other medications. Patient also with a possible component of CHF exacerbation and diuresed well on IV Lasix and recommend continue on oral Lasix with follow-up labs and primary care follow-up next week. Patient also to follow up with pulmonary and cardiology in the outpatient setting. Currently no reports of chest pain, shortness of breath, or palpitations. Patient is afebrile. No reports of nausea or vomiting and patient is tolerating diet. Patient will be discharged home today. Guarded prognosis as patient is high risk for readmissions and has had no hospitalizations. On exam vital signs are stable. Cardio S1, S2 are muffled. Respiratory system shows diminished breath sounds at the bases with no wheezing or rhonchi noted. Abdomen is soft and obese, and nontender. Nervous system shows no focal de ficits. Please refer to medication reconciliation sheet for a list of medications. The impression and plan of care has been dictated by Lorna Garg, Nurse Practitioner as directed. Dr. Vega MD I have performed a history and examination and MDM of this patient, discussed the same with the dictator, and agree with the dictator's assessment and plan as written ,documented as a scribe. Based on total visit time, I have performed more than 50% of the visit. Patient Condition at Discharge: Fair Plan - Discharge Summary Discharge Rx Participant: No New Discharge Prescriptions: New dexAMETHasone 6 mg PO DAILY 7 Days #7 tablet Acetaminophen Tab [Tylenol] 650 mg PO Q6HR PRN tab PRN Reason: Mild Pain Or Fever > 100.5 Continue Atorvastatin [Lipitor] 40 mg PO HS@2100 DULoxetine HCL [Cymbalta] 20 mg PO HS@2100 Metoprolol Succinate [Toprol XL] 25 mg PO DAILY@0900 rOPINIRole HCL [Requip] 3 mg PO BID@0900,2100 Cholecalciferol [Vitamin D3 (25 Mcg = 1000 Iu)] 25 mcg PO DAILY@0900 Budesonide-Formot 160-4.5 Mcg [Symbicort 160-4.5 Mcg Inhaler] 2 puff INHALATION RT-BID Ascorbic Acid [Vitamin C] 500 mg PO DAILY@0900 Apixaban [Eliquis] 2.5 mg PO BID@0900,2100 Furosemide [Lasix] 40 mg PO BID@0900,1200 HYDROcodone/APAP 7.5-325MG [[place] 7.5-325] 1 tab PO Q12H PRN PRN Reason: Pain Pregabalin [Lyrica] 150 mg PO TID@0600,1200,2200 acetaZOLAMIDE [Diamox] 250 mg PO DAILY@0900 Melatonin 5 mg PO HS@2200 Famotidine [Pepcid] 20 mg PO DAILY@0600 Levothyroxine Sodium [Synthroid] 75 mcg PO DAILY@0600 Pantoprazole [Protonix] 40 mg PO DAILY@0600 Potassium Chloride ER [K-Dur 20] 20 meq PO HS@2100 Lactulose [Cephulac] 20 gm PO TID@0600,1200,2100 Cyanocobalamin [Vitamin B-12] 500 mcg PO DAILY@0900 Albuterol Nebulized [Ventolin Nebulized] 2.5 mg INHALATION RT-QID Discharge Medication List Atorvastatin [Lipitor] 40 mg PO HS@2100 08/17/17 [History] DULoxetine HCL [Cymbalta] 20 mg PO HS@209910/16/17 [History] Metoprolol Succinate [Toprol XL] 25 mg PO DAILY@89912/12/19 [History] rOPINIRole HCL [Requip] 3 mg PO BID@0900,209906/15/21 [History] Ascorbic Acid [Vitamin C] 500 mg PO DAILY@89908/21/21 [History] Budesonide-Formot 160-4.5 Mcg [Symbicort 160-4.5 Mcg Inhaler] 2 puff INHALATION RT-BID 08/21/21 [History] Cholecalciferol [Vitamin D3 (25 Mcg = 1000 Iu)] 25 mcg PO DAILY@89908/21/21 [History] acetaZOLAMIDE [Diamox] 250 mg PO DAILY@89908/21/21 [History] Famotidine [Pepcid] 20 mg PO DAILY@59912/08/21 [History] Levothyroxine Sodium [Synthroid] 75 mcg PO DAILY@59912/08/21 [History] Melatonin 5 mg PO HS@219912/08/21 [History] Pantoprazole [Protonix] 40 mg PO DAILY@59912/08/21 [History] Potassium Chloride ER [K-Dur 20] 20 meq PO HS@209912/08/21 [History] Albuterol Nebulized [Ventolin Nebulized] 2.5 mg INHALATION RT-QID 01/27/22 [History] Apixaban [Eliquis] 2.5 mg PO BID@0900,209901/27/22 [History] Cyanocobalamin [Vitamin B-12] 500 mcg PO DAILY@89901/27/22 [History] Furosemide [Lasix] 40 mg PO BID@0900,1200 01/27/22 [History] HYDROcodone/APAP 7.5-325MG [[place] 7.5-325] 1 tab PO Q12H PRN 01/27/22 [History] Lactulose [Cephulac] 20 gm PO TID@0600,1200,209901/27/22 [History] Pregabalin [Lyrica] 150 mg PO TID@0600,1200,2200 01/27/22 [History] Acetaminophen Tab [Tylenol] 650 mg PO Q6HR PRN tab 01/29/22 [Rx] dexAMETHasone 6 mg PO DAILY 7 Days #7 tablet 01/29/22 [Rx] Follow up Appointment(s)/Referral(s): Shira Ortega MD [Primary Care Provider] - 02/07/22 11:30 am [facility] [[facility]STAFF] - As Needed Luisa Fitzgerald MD [STAFF PHYSICIAN] - 02/24/22 9:00 am Patient Instructions/Handouts: COVID-19 (Coronavirus Disease 2019) (DC) Activity/Diet/Wound Care/Special Instructions: Activity Limited until follow-up Follow-up with primary care provider on discharge Follow-up with pulmonary outpatient in the next 2-3 weeks Continue medications as prescribed Continue with dexamethasone for the next 7 days to complete the course Discharge Disposition: HOME WITH HOME HEALTH SERVICES
== END 2022-01-29 16:08 | disposition home health service (06) | DRG 177 ==
LOC: EC 22:14 → 4SSUR 01-27 04:56
PROVIDERS: ADMIT Hospitalist; ATTEND Hospitalist
PROC: XW033H6 Introduction of Other New Technology Monoclonal Antibody into Peripheral Vein, Percutaneous Approach, New Technology Group 6 (ICD-10-PCS; principal; 2022-01-27)
PROC: 8E0ZXY6 Isolation (ICD-10-PCS; 2022-01-27)
DX: U07.1 COVID-19 (principal); I50.33 Acute on chronic diastolic (congestive) heart failure; J12.82 Pneumonia due to coronavirus disease 2019; I48.20 Chronic atrial fibrillation, unspecified; J44.0 Chronic obstructive pulmonary disease with (acute) lower respiratory infection; I45.2 Bifascicular block; J96.12 Chronic respiratory failure with hypercapnia; J96.11 Chronic respiratory failure with hypoxia; E66.2 Morbid (severe) obesity with alveolar hypoventilation; Z68.41 Body mass index [BMI] 40.0-44.9, adult; E78.5 Hyperlipidemia, unspecified; G25.81 Restless legs syndrome; I11.0 Hypertensive heart disease with heart failure; I35.0 Nonrheumatic aortic (valve) stenosis; I27.20 Pulmonary hypertension, unspecified; J84.10 Pulmonary fibrosis, unspecified; F32.A Depression, unspecified; K21.9 Gastro-esophageal reflux disease without esophagitis; Z96.653 Presence of artificial knee joint, bilateral; M79.7 Fibromyalgia; I44.0 Atrioventricular block, first degree; L40.9 Psoriasis, unspecified; I25.10 Atherosclerotic heart disease of native coronary artery without angina pectoris; D63.8 Anemia in other chronic diseases classified elsewhere; G89.29 Other chronic pain; M54.9 Dorsalgia, unspecified; M16.0 Bilateral primary osteoarthritis of hip; M19.012 Primary osteoarthritis, left shoulder; M19.011 Primary osteoarthritis, right shoulder; Z86.16 Personal history of COVID-19; Z85.43 Personal history of malignant neoplasm of ovary; Z92.21 Personal history of antineoplastic chemotherapy; Z92.3 Personal history of irradiation; Z79.01 Long term (current) use of anticoagulants; Z79.51 Long term (current) use of inhaled steroids; Z79.890 Hormone replacement therapy; Z79.899 Other long term (current) drug therapy; Z87.01 Personal history of pneumonia (recurrent); Z86.73 Personal history of transient ischemic attack (TIA), and cerebral infarction without residual deficits; Z86.011 Personal history of benign neoplasm of the brain; Z98.890 Other specified postprocedural states; Z88.0 Allergy status to penicillin; Z82.41 Family history of sudden cardiac death; Z82.49 Family history of ischemic heart disease and other diseases of the circulatory system
CPT/HCPCS: 36415; 71045; 71046; 80048; 80053; 83605; 83615; 83880; 84145; 85025; 85379; 86140; 86769; 87635; 94640; 94760

== ENCOUNTER 2022-04-23 12:16 | Emergency (ER) | payer MEDICARE ==
--- NOTE | 2022-04-23 13:01 | ED ---
General Adult HPI - General Chief complaint: Fall Stated complaint: Fall,knee & wrist pain Time Seen by Provider: 04/23/22 12:26 Source: patient, EMS Mode of arrival: EMS Limitations: no limitations - History of Present Illness Initial comments: Dictation was produced using [employer] dictation software. please excuse any grammatical, word or spelling errors. Chief Complaint: 87-year-old female presents after fall History of Present Illness: A 7-year-old female presents to the emergency department after fall. Patient states she was getting ready when she was walking out of the bathroom and tripped over the carpet. Patient states she landed on both knees. She also tried to rest her fall with her left wrist. She also states she hit her head on the way down. Patient states any coagulation medications. Denies any loss of consciousness. EMS was called patient is brought to the ER. Patient complaining of bilateral knee pain, left wrist pain. The ROS documented in this emergency department record has been reviewed and co nfirmed by me. Those systems with pertinent positive or negative responses have been documented in the HPI. All other systems are other negative and/or noncontributory. PHYSICAL EXAM: General Impression: Alert and oriented x3, not in acute distress HEENT: Small ecchymosis over the forehead, extra-ocular movements intact, pupils equal and reactive to light bilaterally, mucous membranes moist. Cardiovascular: Heart regular rate and rhythm Chest: Able to complete full sentences, no retractions, no tachypnea Abdomen: abdomen soft, non-tender, non-distended, no organomegaly Musculoskeletal: Pulses present and equal in all extremities, no peripheral edema, gross deformity to the left wrist, abrasions over the bilateral knees Motor: no focal deficits noted Neurological: CN II-XII grossly intact, no focal motor or sensory deficits noted Skin: Intact with no visualized rashes Psych: Normal affect and mood ED course: 87 female presents emergency department after fall. Patient suffered a mechanical fall based on history present illness. Vital signs upon arrival are within acceptable limits. Patient's well-appearing and in no acute distress. Imaging studies obtained. Computed tomography scan of the head and C-spine shows no acute processes. Chest x-ray is nonacute. Pelvis x-ray shows no acute processes. Bilateral knee x-rays unremarkable. Wrist x-ray shows no obvious abnormalities. EKG interpretation: Ventricular rate 60, sinus rhythm,. Interval to 73, QS 179, QTc 517. No DE prolongation, no QTC prolongation, no ST or T-wave changes noted. EKG compared to 01/26/2022 showing no changes. Overall, this EKG is unremarkable Return evaluation obtained. CBC, coag panel, metabolic panel is unremarkable. There is a mild hypokalemia the patient was made aware of. Patient reevaluated at bedside 3:30 PM found with stable medical condition. Splint was placed on her left wrist. There is still concern of a wrist fracture without any obvious radiographically evidence. Patient told to follow up with orthopedic. - Related Data Home Medications Medication Instructions Recorded Confirmed Atorvastatin [Lipitor] 40 mg PO HS@209908/17/17 04/23/22 DULoxetine HCL [Cymbalta] 20 mg PO HS@209910/16/17 04/23/22 Metoprolol Succinate [Toprol XL] 25 mg PO DAILY@89912/12/19 04/23/22 rOPINIRole HCL [Requip] 3 mg PO BID@899,209906/15/21 04/23/22 Ascorbic Acid [Vitamin C] 500 mg PO DAILY@89908/21/21 04/23/22 Budesonide-Formot 160-4.5 Mcg 2 puff INHALATION RT-BID 08/21/21 04/23/22 [Symbicort 160-4.5 Mcg Inhaler] Cholecalciferol [Vitamin D3 (25 25 mcg PO DAILY@89908/21/21 04/23/22 Mcg = 1000 Iu)] acetaZOLAMIDE [Diamox] 250 mg PO DAILY@89908/21/21 04/23/22 Famotidine [Pepcid] 20 mg PO DAILY@59912/08/21 04/23/22 Levothyroxine Sodium [Synthroid] 75 mcg PO DAILY@59912/08/21 04/23/22 Melatonin 5 mg PO HS@219912/08/21 04/23/22 Pantoprazole [Protonix] 40 mg PO DAILY@59912/08/21 04/23/22 Potassium Chloride ER [K-Dur 20] 20 meq PO HS@209912/08/21 04/23/22 Albuterol Nebulized [Ventolin 2.5 mg INHALATION RT-QID PRN 01/27/22 04/23/22 Nebulized] Apixaban [Eliquis] 2.5 mg PO BID@0900,2100 01/27/22 04/23/22 Cyanocobalamin [Vitamin B-12] 500 mcg PO DAILY@0900 01/27/22 04/23/22 Furosemide [Lasix] 40 mg PO BID@0900,1200 01/27/22 04/23/22 HYDROcodone/APAP 7.5-325MG [[place] 1 tab PO Q12H PRN 01/27/22 04/23/22 7.5-325] Pregabalin [Lyrica] 150 mg PO TID@0600,1200,2200 01/27/22 04/23/22 Previous Rx's Medication Instructions Recorded Acetaminophen Tab [Tylenol] 650 mg PO Q6HR PRN tab 01/29/22 Allergies Allergy/AdvReac Type Severity Reaction Status Date / Time Penicillins Allergy Swelling/It Verified 04/23/22 14:47 lolis Review of Systems ROS Statement: Those systems with pertinent positive or pertinent negative responses have been documented in the HPI. ROS Other: All systems not noted in ROS Statement are negative. Past Medical History Past Medical History: Atrial Fibrillation, Cancer, Heart Failure, COPD, Fibromyalgia, GERD/Reflux, Hyperlipidemia, Hypertension, Osteoarthritis (OA), Pneumonia, Respiratory Disorder, Skin Disorder, Sleep Apnea/CPAP/BIPAP Additional Past Medical History / Comment(s): Chronic hypoxic and hypercanpnic respiratory failure/obesity hypoventilation syndrome, home O2 at 4L/NC daytime and Bipap at night, past pneumonias and covid pneumonia 05/2021, pulmonary fibrosis, cardiac valve disease, ovarian cancer with surgery/chemo/radiation, benign brain tumor removed, PVCs, chronic back pain/bilateral hips and quinn ulders, RLS, psoriasis, sacral decub, 1998 Cdiff colitis. History of Any Multi-Drug Resistant Organisms: C-DIFF Date of last positivie culture/infection: stool MDRO Source:: 1998 Past Surgical History: Back Surgery, Heart Catheterization, Hernia Repair, Hysterectomy, Joint Replacement, Tonsillectomy Additional Past Surgical History / Comment(s): Total hysterectomy, incisional hernia with mesh which later became imfected and had exploratory laparatomy/wound vac, back surgeries x2, EGD, colonoscopy, hemorrhoidectomy, loop recorder, brain tumor removed, bilateral total knee arthroplasties, bilateral cataract surgery. Past Anesthesia/Blood Transfusion Reactions: No Reported Reaction Past Psychological History: Depression Smoking Status: Never smoker Past Alcohol Use History: None Reported Past Drug Use History: None Reported - Past Family History Father Family Medical History: Myocardial Infarction (SD) Additional Family Medical History / Comment(s): Father of a SD at the age of 56yrs. Mother Additional Family Medical History / Comment(s): parkinson's Sister(s) Family Medical History: Cancer General Exam Limitations: no limitations Course Vital Signs 04/23/22 12:20 Temperature 97.1 F L Pulse Rate 61 Respiratory 20 Rate Blood Pressure 116/51 O2 Sat by Pulse 97 Oximetry Procedures - Orthopedic Splinting/Casting Injury #1 Side: left Upper Extremity Immobilizer: wrist splint Medical Decision Making - Lab Data Result diagrams: 04/23/22 14:50 04/23/22 14:50 Lab Results 04/23/22 04/23/22 04/23/22 Range/Units 14:50 14:50 14:50 WBC 5.3 (3.8-10.6) k/uL RBC 4.40 (3.80-5.40) m/uL Hgb 11.4 (11.4-16.0) gm/dL Hct 38.0 (34.0-46.0) % MCV 86.4 (80.0-100.0) fL MCH 26.0 (25.0-35.0) pg MCHC 30.1 L (31.0-37.0) g/dL RDW 17.3 H (11.5-15.5) % Plt Count 122 L (150-450) k/uL MPV 10.8 Neutrophils % 75 % Lymphocytes % 15 % Monocytes % 5 % Eosinophils % 2 % Basophils % 0 % Neutrophils # 4.0 (1.3-7.7) k/uL Lymphocytes # 0.8 L (1.0-4.8) k/uL Monocytes # 0.3 (0-1.0) k/uL Eosinophils # 0.1 (0-0.7) k/uL Basophils # 0.0 (0-0.2) k/uL Hypochromasia Marked Anisocytosis Slight PT 10.4 (9.0-12.0) sec INR 1.0 (<1.2) APTT 26.6 (22.0-30.0) sec Sodium 141 (137-145) mmol/L Potassium 3.1 L (3.5-5.1) mmol/L Chloride 101 (98-107) mmol/L Carbon Dioxide 34 H (22-30) mmol/L Anion Gap 6 mmol/L BUN 14 (7-17) mg/dL Creatinine 0.80 (0.52-1.04) mg/dL Est GFR (CKD-EPI)AfAm 77 (>60 ml/min/1.73 sqM) Est GFR (CKD-EPI)NonAf 67 (>60 ml/min/1.73 sqM) Glucose 96 (74-99) mg/dL Calcium 8.9 (8.4-10.2) mg/dL Disposition Clinical Impression: Wrist injury, Fall Disposition: HOME SELF-CARE Condition: Good Instructions (If sedation given, give patient instructions): Fall Prevention for Older Adults (ED) Is patient prescribed a controlled substance at d/c from ED?: No Referrals: Wang Jane DO [Doctor of Osteopathic Medicine] - 1-2 days Time of Disposition: 15:43
--- NOTE | 2022-04-23 14:12 | CT ---
EXAMINATION TYPE: CT brain cspine wo con DATE OF EXAM: 04/23/2022 COMPARISON: CT brain November 01, 2021. CT cervical spine October 07, 2019 HISTORY: Fall injury with headache and neck pain. CT DLP: 1758.7 mGycm. Automated Exposure Control for Dose Reduction was Utilized. TECHNIQUE: CT scan of the head and cervical spine are performed without contrast. FINDINGS: There is low left occipital craniotomy and craniectomy with adjacent resection cavity or en cephalomalacia laterally in the cerebellum again seen. No acute intracranial hemorrhage or midline sh ift. Mild to moderate ventricular and sulcal prominence redemonstrated. Bearden-white matter differentia tion fairly well-preserved for patient's age. Small acute scalp hematoma high right frontal region ax ial image 55 on current study. Globes are intact and visualized sinuses are clear. Cervical spine is visualized in its entirety from C1 through upper thoracic levels and redemonstrates dextroconvex scoliotic curvature or positioning without evidence of acute fracture or dislocation. E valuation slightly suboptimal due to large body habitus. Prevertebral soft tissue remains within norm al limits. The C1-C2 articulation is within normal limits on the coronal images. Vertebral body hei ghts are maintained. Mild to moderate multilevel disc space narrowing with relative sparing of C2-C3 and C3-C4 levels is redemonstrated. Spinal canal is grossly preserved. Axial images we demonstrate mu ltilevel uncovertebral facet degenerative changes causing multilevel bilateral neural foraminal narro wing. Hypoplastic or absent thyroid is redemonstrated. Lung apices show no pneumothorax. There is par enchymal scarring in the anterior upper lungs present. IMPRESSION: 1. There is no acute fracture or dislocation evident in the cervical spine. 2. No acute intracranial hemorrhage or midline shift is seen. Small high right frontal acute scalp he matoma noted.
--- NOTE | 2022-04-23 14:37 | XR ---
EXAMINATION TYPE: XR chest 2V DATE OF EXAM: 04/23/2022 COMPARISON: 01/28/2022 TECHNIQUE: PA and lateral views submitted. HISTORY: Pain FINDINGS: A persistent patchy bilateral infiltrate. Stimulator device lead noted. A cardiac device also stenosi s. No sizable pleural effusion or thorax. Coarsened interstitium with diffuse osteopenia. IMPRESSION: 1. Stable cardiomegaly and bilateral patchy poorly underlying pneumonia versus chronic scarring. 2. Mild interstitial pneumonitis, bronchitis or interstitial edema differential diagnosis.
--- NOTE | 2022-04-23 14:39 | XR ---
EXAMINATION TYPE: XR knee 4V bilateral DATE OF EXAM: 04/23/2022 COMPARISON: NONE HISTORY: Pain TECHNIQUE: Four views of bilateral knee are submitted. FINDINGS: Bilateral knee arthroplasties are seen. There are numerous soft tissue calcifications noted on the le ft. There is diffuse osteopenia. No acute fracture or dislocation. IMPRESSION: 1. Postsurgical changes with no acute fracture. 2. Diffuse osteopenia.
--- NOTE | 2022-04-23 14:41 | XR ---
EXAMINATION TYPE: XR pelvis AP view DATE OF EXAM: 04/23/2022 COMPARISON: NONE HISTORY: Pain Findings: There is severe bilateral hip arthropathy greater on the right. Stimulator device and leads are seen along the upper margin of the image in the bowel gas pattern is nonspecific. Calcification in the pel vis likely vascular.. No acute fracture is seen. Visualized bowel gas pattern is nonspecific. Left SI joint arthropathy suspected. IMPRESSION: 1. No acute fracture.
--- NOTE | 2022-04-23 14:44 | XR ---
EXAMINATION TYPE: XR wrist complete LT DATE OF EXAM: 04/23/2022 COMPARISON: NONE HISTORY: Pain TECHNIQUE: Four views submitted. FINDINGS: Diffuse osteopenia with chronic deformity involving the fifth metacarpal. Severe arthropathy of the f irst curve metacarpal joint and trapezium scaphoid joint. There is chondrocalcinosis and diffuse oste openia. No definite acute fracture or dislocation. IMPRESSION: 1. No definite acute fracture or dislocation if symptoms persist, follow-up study in 7 to 10 days wo uld be suggested. 2. Severe arthropathy in a pattern suggestive of osteoarthritis.
[2022-04-23 15:16] LABS: Anisocytosis Slight; Basophils % (A) 0 %; Eosinophils # (A) 0.1 k/uL (0-0.7); Eosinophils % (A) 2 %; HGB 11.4 gm/dL (11.4-16.0); Hypochromasia Marked; Lymphocytes # (A) 0.8 k/uL (1.0-4.8); Lymphocytes % (A) 15 %; MCHC 30.1 g/dL (31.0-37.0); MCV 86.4 fL (80.0-100.0); Mean Platelet Volume 10.8; Monocytes # (A) 0.3 k/uL (0-1.0); Monocytes % (A) 5 %; Neutrophils % (A) 75 %; Platelet Count 122 k/uL (150-450); RDW 17.3 % (11.5-15.5); WBC 5.3 k/uL (3.8-10.6)
[2022-04-23 15:19] LABS: Partial Thromboplastin Time 26.6 sec (22.0-30.0); Prothrombin Time 10.4 sec (9.0-12.0)
[2022-04-23 15:24] LABS: Calcium 8.9 mg/dL (8.4-10.2); Potassium 3.1 mmol/L (3.5-5.1)
[2022-04-23 18:29] VITALS: BP 118/60; PULSE 62; RESP 18; TEMP 97.9
== END 2022-04-23 16:10 | disposition home or self-care (01) ==
LOC: EC 12:16
DX: S69.92XA Unspecified injury of left wrist, hand and finger(s), initial encounter (principal); I48.91 Unspecified atrial fibrillation; I50.9 Heart failure, unspecified; J44.9 Chronic obstructive pulmonary disease, unspecified; I10 Essential (primary) hypertension; E78.5 Hyperlipidemia, unspecified; K21.9 Gastro-esophageal reflux disease without esophagitis; Z88.0 Allergy status to penicillin; Z99.89 Dependence on other enabling machines and devices; Z79.51 Long term (current) use of inhaled steroids; Z79.899 Other long term (current) drug therapy; Z79.890 Hormone replacement therapy; W01.0XXA Fall on same level from slipping, tripping and stumbling without subsequent striking against object, initial encounter; Y93.01 Activity, walking, marching and hiking
CPT/HCPCS: 36415; 70450; 71046; 72125; 72170; 80048; 85025; 85610; 85730; 93005; 99284

== ENCOUNTER → 2023-11-25 | Outpatient (CLI) | payer MEDICARE ==
[2023-11-25 13:59] LABS: Basophils % (A) 0 %; Eosinophils # (A) 0.1 k/uL (0-0.7); Eosinophils % (A) 3 %; HCT 41.6 % (34.0-46.0); HGB 13.1 gm/dL (11.4-16.0); Lymphocytes # (A) 0.8 k/uL (1.0-4.8); Lymphocytes % (A) 20 %; MCH 29.6 pg (25.0-35.0); MCHC 31.5 g/dL (31.0-37.0); MCV 93.8 fL (80.0-100.0); Mean Platelet Volume 9.6; Monocytes # (A) 0.2 k/uL (0-1.0); Monocytes % (A) 5 %; Neutrophils # (A) 2.8 k/uL (1.3-7.7); Neutrophils % (A) 71 %; Platelet Count 150 k/uL (150-450); RBC 4.43 m/uL (3.80-5.40); WBC 3.9 k/uL (3.8-10.6)
[2023-11-25 14:19] LABS: ALT 14 U/L (4-34); AST 21 U/L (14-36); African American GFR (CKD) 67 (>60 ml/min/1.73 sqM); Albumin 3.5 g/dL (3.5-5.0); Albumin/Globulin Ratio 1.5; Alkaline Phosphatase 130 U/L (38-126); Anion Gap 5 mmol/L; Blood Urea Nitrogen 18 mg/dL (7-17); Calcium 8.8 mg/dL (8.4-10.2); Carbon Dioxide 35 mmol/L (22-30); Chloride 103 mmol/L (98-107); Globulin 2.4 g/dL; Glucose 88 mg/dL (74-99); Magnesium 2.2 mg/dL (1.6-2.3); Non-African American GFR(CKD) 58 (>60 ml/min/1.73 sqM); Potassium 3.5 mmol/L (3.5-5.1); Sodium 143 mmol/L (137-145); Total Bilirubin 0.7 mg/dL (0.2-1.3); Total Protein 5.9 g/dL (6.3-8.2)
[2023-11-25 21:53] LABS: Chol/HDL Ratio 3.96 Ratio; LDL Cholesterol,Calculated 122.7 mg/dL (0.0-131.0)
== END | disposition home or self-care (01) ==
LOC: LABWHC1 13:23
PROVIDERS: ATTEND Nurse Practitioner Adult Health
DX: I10 Essential (primary) hypertension (principal); I49.5 Sick sinus syndrome; I48.0 Paroxysmal atrial fibrillation; E78.5 Hyperlipidemia, unspecified
CPT/HCPCS: 36415; 80053; 80061; 83735; 84443; 85025